=== PATIENT | female | born 1970 | race Caucasian/White ===

== ENCOUNTER → 2016-11-04 | Outpatient (CLI) | payer OTHER ==
[~2016-11-04] MED LIST: ACET-1256 PO; ALBUAER INH; AMB10 PO; AMOX875T PO; AZEL0.15 NAE; CALC1TAB9 PO; FEXO1TAB58 PO; FLUO20CA35 PO; FLUO40CA8 PO; FRS/40 PO; GABA1CAP5 PO; IBUP-103 PO; LEVO75TA5 PO; LIDO5DIS10 TOP; MTR600X PO; NF656 TOP; OMEP40CA PO; OMEP40CA41 PO; OXYC1TAB3 PO; PEDICHW50 PO; POTA1TAB PO; WARF-237 PO; WARF5TAB90 PO; ZNTT/150 PO; ZOLP5TAB6 PO
--- NOTE | 2016-11-04 16:45 | DIAGNOSTIC IMAGING REPORT ---
ULTRASOUND LEFT LOWER EXTREMITY VENOUS CLINICAL HISTORY: Left leg pain and swelling. COMPARISON STUDY: No priors. TECHNIQUE: Real-time, grayscale, and color Doppler sonography of the deep veins of the left lower extremity was performed from the inguinal crease to the calf. Compression and augmentation were utilized. FINDINGS: There is nearly occlusive deep venous thrombosis identified in the left popliteal vein. The common femoral and superficial femoral veins are patent and normally compressible. The greater saphenous vein and the profunda femoris vein at the junction with the common femoral vein are clear. The visualized calf veins are patent. Occlusive superficial venous thrombus is identified in the left chapa at the indicated site of pain. IMPRESSION: 1. There is nearly occlusive deep venous thrombosis identified within the left popliteal vein. 2. There is occlusive superficial venous thrombus identified in the left chapa at the site of pain. Electronically signed by: David Birmingham M.D. 11/04/2016 4:44 PM Dictated Date/Time: 11/04/2016 4:42 PM
== END | disposition home or self-care (01) ==
LOC: C.ULTR 15:51
PROVIDERS: ATTEND Internal Medicine
DX: I82.432 Acute embolism and thrombosis of left popliteal vein (principal); I82.812 Embolism and thrombosis of superficial veins of left lower extremity

== ENCOUNTER 2017-02-27 06:39 | Emergency (ER) | payer OTHER ==
[~2017-02-27] VITALS: Ht 167.6 cm; Wt 156.8 kg
[~2017-02-27 06:39] MED LIST changes: -AMOX875T PO; -IBUP-103 PO; -NF656 TOP; -OMEP40CA41 PO; -ZOLP5TAB6 PO
[2017-02-27 06:43] VITALS: TEMP 36.6; Ht 167.6 cm; Wt 156.8 kg
[2017-02-27] MEDS ORDERED: NF656 TOP (07:15)
[2017-02-27] MEDS ORDERED: ZOLP5TAB6 PO (07:15)
[2017-02-27] MEDS ORDERED: ALBUAER INH (07:15)
[2017-02-27] MEDS ORDERED: IBUP-103 PO (07:15)
[2017-02-27] MEDS ORDERED: OMEP40CA41 PO (07:15)
[2017-02-27] MEDS ORDERED: AMPICILLIN/SULBACTAM SOD INJ 3,000 MG in SODIUM CHLORIDE 0.9% 100ML 100 ML IV ONE (07:30)
--- NOTE | 2017-02-27 07:32 | EMERGENCY ROOM VISIT NOTE ---
History First contact with patient: 06:57 Chief Complaint: BITE Stated Complaint: DOG BITE History of Present Illness The patient is a 47 year old female who presents to the Emergency Room with complaints of right hand pain and swelling. 2 days ago she was breaking up a fight between her dog and another dog and was bitten on the right hand. She states that the dog's are up-to-date on their immunizations. She states she has been cleaning the wound and dressing with Neosporin. Pain and swelling has become more significant today with difficulty moving her fourth and fifth fingers due to pain. She is right-hand dominant. Tetanus is up-to-date. She is on warfarin therapy for history of blood clots, denies any abnormal bleeding or bruising. She denies any fevers, chills, wrist or elbow pain, feeling ill, nausea/vomiting. She does note that she recently completed a course of amoxicillin for sinus infection. Review of Systems GENERAL: Denies fevers, chills, malaise, fatigue, unintentional weight changes. HEENT: Denies dizziness, visual problems, hearing loss, tinnitus. Denies difficulty swallowing or oral lesions. PULMONARY: Denies cough, shortness of breath, sputum production or hemoptysis. CARDIOVASCULAR: Denies chest pain, palpitations, dyspnea on exertion, orthopnea or peripheral edema. GASTROINTESTINAL: Denies diarrhea, constipation, nausea, vomiting, or abdominal pain. GENITOURINARY: Denies dysuria, frequency, urgency or nocturia. NEUROLOGIC: Denies history of epilepsy, CVA, TIA or chronic headaches. MUSCULOSKELETAL: Denies history of joint tenderness/swelling. Is right hand pain, swelling, erythema. SKIN: Denies rashes or lesions. PSYCHIATRIC: Denies history of depression or mental illness. ENDOCRINE: Denies history of diabetes, thyroid disorders, abnormal hair growth or sexual dysfunction. Past Medical/Surgical History Medical Problems: (1) gastric sleeve Surgical Problems: (1) History of carpal tunnel surgery Family History Cancer Diabetes mellitus FH: heart disease FHx: gallbladder disease Hypertension Kidney disease Kidney stones Social History Smoking Status: Former Smoker Alcohol Use: none Housing Status: lives with significant other Occupation Status: unemployed Current/Historical Medications Scheduled Acetaminophen (Tylenol), 1 TAB PO prn Amoxicillin & Pot Clavulanate (Augmentin 875-125 mg), 1 TAB PO BID Calcium Citrate-Vitamin D (Citracal + D3 Maximum), 5 TABS PO QDL Fluoxetine (Prozac), 40 MG PO QAM Fluoxetine (Prozac), 20 MG PO QAM Gabapentin (Neurontin), 400 MG PO BID Levothyroxine Sodium (Levothyroxine Sodium), 1 TAB PO QAM Omeprazole (Prilosec), 40 MG PO QAM Pediatric Multiple Vitamin W/ (Flintstones Chewable), 1 TAB PO BID Potassium Gluconate (Potassium Gluconate), 595 MG PO HS Ranitidine (Zantac), 150 MG PO QAM Warfarin Sod (Coumadin), 1 TAB PO 5XWK Warfarin Sodium (Coumadin), 1 TAB PO 2XWK Scheduled PRN Albuterol Sulfate (Proventil Hfa), 2 PUFFS INH Q4H PRN for Shortness of Breath Azelastine Hcl (Astepro), 2 SPRY HILLARY DAILY PRN for prn Fexofenadine-Pseudoephedrine (Ayde-D 24 Hour Allergy), 1 TAB PO DAILY PRN for prn Furosemide (Lasix), 40 MG PO DAILY PRN for swelling Ibuprofen Tab (Advil), 600 MG PO Q4H PRN for Pain Lidocaine (Lidoderm Patch 5%), 1 PATCH TOP DAILY PRN for Pain Oxycodone Ir (Roxicodone Ir), 1-2 TAB PO Q4H PRN for Severe Pain Zolpidem Tartrate (Zolpidem Tartrate), 5 MG PO HS PRN for Sleep Allergies Coded Allergies: NO KNOWN DRUG ALLERGIES (Verified Allergy, Mild, ., 02/27/17) Adhesives (Verified Allergy, Unknown, skin tearing, 02/27/17) Latex1 -Allergic Contact Dermititis (Verified Allergy, Unknown, SKIN IRRITATION, 02/27/17) Uncoded Allergies: NYLON STITCHES (Allergy, Unknown, erythema/pus , 01/02/16) Physical Exam Vital Signs Date Time Temp Pulse Resp B/P Pulse Ox O2 Delivery O2 Flow Rate FiO2 02/27/17 09:55 131/85 02/27/17 09:09 50 22 96 02/27/17 09:01 133/71 02/27/17 08:39 53 20 97 02/27/17 08:32 111/63 02/27/17 08:25 49 02/27/17 06:43 36.6 63 16 127/74 97 Room Air Physical Exam CONSTITUTIONAL: No acute distress. Well appearing and well nourished. Alert and oriented X 4 with normal affect. HEENT: Normocephalic, atraumatic. Pupils equal, round and reactive to light, EOMI. TMs normal. Pharynx normal. NECK: Supple, full active range of motion without discomfort. RESPIRATORY: Clear to auscultation bilaterally with no wheezing, crackles, rhonchi or stridor. Equal expansion bilaterally. CARDIOVASCULAR: Regular rate and rhythm with no murmurs, rubs or gallops. Normal peripheral perfusion. No edema. GASTROINTESTINAL: Soft, nontender, nondistended. Bowel sounds present in all quadrants. MUSCULOSKELETAL: There is break in the skin over the palmar aspect of the right hand, just below the 5th MCP joint, with surrounding swelling, erythema, ttp. No drainage noted from the wound. Increased pain with passive ROM of the 4th and 5th finger. TTP of the 4th and 5th MCP joints. Full range of motion of all other joints without discomfort. INTEGUMENTARY: No rash or other significant dermatologic conditions noted. NEUROLOGIC: Cranial nerves II-XII grossly intact. No focal neurologic deficits noted. Medical Decision & Procedures ER Provider Diagnostic Interpretation: RIGHT HAND 3 VIEWS CLINICAL HISTORY: Dog bite injury. Cellulitis. FINDINGS: 3 views of the right hand are obtained. No prior studies are available for comparison at the time of dictation. The skeletal structures are well mineralized. No fracture is seen. The joint spaces of the hand are well-maintained. There is negative ulnar variance. Diffuse soft tissue edema is identified, greatest dorsally. No subcutaneous gas is seen. No radiodense foreign body is identified. IMPRESSION: Soft tissue edema with no acute bony abnormality seen in the right hand. Laboratory Results 02/27/17 07:35 Red Blood Count 4.94, Mean Corpuscular Volume 91.3, Mean Corpuscular Hemoglobin 30.0, Mean Corpuscular Hemoglobin Concent 32.8, Mean Platelet Volume 9.3, Neutrophils (%) (Auto) 62.3, Lymphocytes (%) (Auto) 24.1, Monocytes (%) (Auto) 11.9, Eosinophils (%) (Auto) 1.3, Basophils (%) (Auto) 0.1, Neutrophils # (Auto ) 4.82, Lymphocytes # (Auto) 1.86, Monocytes # (Auto) 0.92, Eosinophils # (Auto ) 0.10, Basophils # (Auto) 0.01 02/27/17 07:35 Test 02/27/17 07:35 02/27/17 08:30 White Blood Count 7.73 K/uL (4.8-10.8) Red Blood Count 4.94 M/uL (4.2-5.4) Hemoglobin 14.8 g/dL (12.0-16.0) Hematocrit 45.1 % (37-47) Mean Corpuscular Volume 91.3 fL (80-100) Mean Corpuscular Hemoglobin 30.0 pg (25-34) Mean Corpuscular Hemoglobin Concent 32.8 g/dl (32-36) Platelet Count 270 K/uL (130-400) Mean Platelet Volume 9.3 fL (7.4-10.4) Neutrophils (%) (Auto) 62.3 % Lymphocytes (%) (Auto) 24.1 % Monocytes (%) (Auto) 11.9 % Eosinophils (%) (Auto) 1.3 % Basophils (%) (Auto) 0.1 % Neutrophils # (Auto) 4.82 K/uL (1.4-6.5) Lymphocytes # (Auto) 1.86 K/uL (1.2-3.4) Monocytes # (Auto) 0.92 K/uL (0.11-0.59) Eosinophils # (Auto) 0.10 K/uL (0-0.5) Basophils # (Auto) 0.01 K/uL (0-0.2) RDW Standard Deviation 56.3 fL (36.4-46.3) RDW Coefficient of Variation 16.7 % (11.5-14.5) Immature Granulocyte % (Auto) 0.3 % Immature Granulocyte # (Auto) 0.02 K/uL (0.00-0.02) Anion Gap 5.0 mmol/L (3-11) Est Creatinine Clear Calc Drug Dose 133.6 ml/min Estimated GFR () 101.9 Estimated GFR (Non- 87.9 BUN/Creatinine Ratio 11.8 (10-20) Calcium Level 8.3 mg/dl (8.5-10.1) Prothrombin Time 36.4 SECONDS (9.0-12.0) Prothromb Time International Ratio 3.2 (0.9-1.1) Medications Administered Medications (Trade) Dose Ordered Sig/Chica Route Start Time Stop Time Status Last Admin Dose Admin Ampicillin Sodium/ Sulbactam Sodium/ Sodium Chloride (Unasyn Inj/Nss 100ml) 108 ml @ 200 mls/hr ONE ONCE IV 02/27/17 07:30 02/27/17 08:02 DC 02/27/17 07:47 200 MLS/HR Medical Decision CC: Patient presenting with complaint of right hand pain and swelling Interpretation of Labs: No leukocytosis, no anemia, no significant electrolyte abnormalities, normal renal function. Mildly supratherapeutic INR. Differential Diagnosis: Includes, but not limited to cellulitis, abscess, foreign body, tenosynovitis, fracture. Summary: Patient was evaluated at bedside, history of physical exam performed. Patient is alert and in no acute distress. On exam there is evidence of developing cellulitis of the right hand. No streaking or purulent drainage noted. Orders were placed at bedside for basic labs, IV antibiotics, x-ray of the hand to evaluate and treat for cellulitis. Patient discussed with Dr. Leslie, who agrees with my assessment and plan. Labs reviewed, mildly elevated INR and otherwise unremarkable. X-ray reviewed, findings consistent with cellulitis, no foreign body or underlying bony abnormality. Cellulitic area outlined with skin marker. Patient appears to be improving after IV antibiotics. Vital signs remained stable. Patient reassessed multiple times throughout ED stay, patient remained stable and without complaint. Patient was updated on plan for discharge and continued management of her cellulitis. She was instructed on close follow-up and return precautions, she verbalized understanding. Impression Primary Impression: Dog bite Additional Impression: Cellulitis of right hand Departure Information Dispostion Home / Self-Care Condition GOOD Prescriptions Amoxicillin & Pot Clavulanate (Augmentin 875-125 mg) 1 Tab Tab 1 TAB PO BID for 10 Days, #20 TAB Prov: Debbie Eng CRNP 02/27/17 Referrals Krzysztof Pickering MD (PCP) Patient Instructions ED Bite Dog, ED Infec Skin Cellulitis, My [facility] Additional Instructions Take the Augmentin as prescribed for the full 10 days. Do not skip any doses. You may take extra strength Tylenol 1-2 tablets every 6-8 hours as needed for pain. Do not take more than 6 tablets in 24 hours. Apply warm compresses to the area to help with pain and swelling. Keep the hand elevated as much as possible to also help with swelling. Your INR (Coumadin level) was slightly elevated today. Do not take her dose of Coumadin tonight. You may resume taking her Coumadin as normal tomorrow. You should have your INR rechecked in 3-4 days. Please return to the ER to have your hand rechecked in 2 days. Please return sooner for any signs of worsening infection, including increased pain, swelling , spreading redness, streaking up the arm, pus drainage, fevers/chills/feeling ill, persistent vomiting and unable to take your medications, or any other concerns. Problem Qualifiers Primary Impression: Dog bite Encounter type: initial encounter Qualified Codes: W54.0XXA - Bitten by dog , initial encounter
[2017-02-27 07:52] LABS: BASO % 0.1 %; BASO ABS # 0.01 K/uL (0-0.2); COMPLETE YES; EOS % 1.3 %; HEMATOCRIT 45.1 % (37-47); IG% 0.3 %; LYMPH % 24.1 %; LYMPH ABS # 1.86 K/uL (1.2-3.4); MEAN CELL VOLUME 91.3 fL (80-100); MEAN CORPUSCULAR HGB CONC 32.8 g/dl (32-36); MEAN PLATELET VOLUME 9.3 fL (7.4-10.4); MONO % 11.9 %; NEUT % 62.3 %; PLATELET COUNT 270 K/uL (130-400); RED BLOOD COUNT 4.94 M/uL (4.2-5.4); WHITE BLOOD COUNT 7.73 K/uL (4.8-10.8)
[2017-02-27 08:21] LABS: BUN/CREATININE RATIO 11.8 (10-20); CREATININE 0.79 mg/dl (0.60-1.20); POTASSIUM 4.1 mmol/L (3.5-5.1)
--- NOTE | 2017-02-27 08:27 | DIAGNOSTIC IMAGING REPORT ---
RIGHT HAND 3 VIEWS CLINICAL HISTORY: Dog bite injury. Cellulitis. FINDINGS: 3 views of the right hand are obtained. No prior studies are available for comparison at the time of dictation. The skeletal structures are well mineralized. No fracture is seen. The joint spaces of the hand are well-maintained. There is negative ulnar variance. Diffuse soft tissue edema is identified, greatest dorsally. No subcutaneous gas is seen. No radiodense foreign body is identified. IMPRESSION: Soft tissue edema with no acute bony abnormality seen in the right hand. Electronically signed by: David Birmingham M.D. 02/27/2017 8:25 AM Dictated Date/Time: 02/27/2017 8:24 AM
[2017-02-27 08:45] LABS: CALCIUM 8.3 mg/dl (8.5-10.1)
[2017-02-27 08:50] LABS: INR 3.2 (0.9-1.1); PROTHROMBIN TIME (PATIENT) 36.4 SECONDS (9.0-12.0)
[2017-02-27 09:09] VITALS: PULSE 50; O2SAT 96
[2017-02-27] MEDS ORDERED: AMOX875T PO (09:44)
[2017-02-27 09:55] VITALS: BP 131/85
== END 2017-02-27 09:59 | disposition home or self-care (01) ==
LOC: C.EDB 06:40
DX: S61.451A Open bite of right hand, initial encounter (principal); L03.113 Cellulitis of right upper limb; Z79.01 Long term (current) use of anticoagulants; Z79.899 Other long term (current) drug therapy; Z86.718 Personal history of other venous thrombosis and embolism; Z87.891 Personal history of nicotine dependence; Z82.49 Family history of ischemic heart disease and other diseases of the circulatory system; Z83.3 Family history of diabetes mellitus; Z83.79 Family history of other diseases of the digestive system; Z84.1 Family history of disorders of kidney and ureter; W54.0XXA Bitten by dog, initial encounter

== ENCOUNTER → 2018-02-17 | Day surgery (SDC) | payer OTHER ==
[2018-02-10 13:26] VITALS: BMI 61.0
[~2018-02-17] VITALS: Ht 167.6 cm; Wt 170.9 kg
[~2018-02-17] MED LIST changes: -AMB10 PO; -AZEL0.15 NAE; +CYCL5TAB PO; +FERRTAB18 PO; +FLUT0.15 NAE; +FOLI5CAP PO; +GABA-1220 PO; -GABA1CAP5 PO; -LIDO5DIS10 TOP; +LIDOCAINE HCL 2% 2 ML VIAL (20MG/ML) ONE; -MTR600X PO; -OMEP40CA PO; +OMEP40CA41 PO; +PROPOFOL IV EMULSION 10 MG/ML 20 ML VIAL ONE; +RANI150T85 PO; +SODIUM CHLORIDE 0.9% 500ML 500 ML IV ONE; +TOPI25TA99 PO; -ZNTT/150 PO; +ZOLP5TAB6 PO
[2018-02-17 08:22] VITALS: Ht 167.6 cm; Wt 170.9 kg
--- NOTE | 2018-02-17 08:32 | Endo History and Physical ---
History & Physical Date of Service: February 17, 2018. Chief Complaint: SCREENING Referring Physician: DR. GAGE History of Present Illness Screening colonoscopy Past Medical History Arthritis, Reflux, Sleep Apnea, Thyroid Disease, Depression Past Surgical History Hx Cardiac Surgery: No Hx Internal Defibrillator: No Hx Pacemaker: No Hx Abdominal Surgery: Yes (GASTRIC SLEEVE PROCEDURE 03/12/15, D&C) Hx of Implantable Prosthesis: No Hx Post-Op Nausea and Vomiting: No Hx Cancer Surgery: No Hx Thoracic Surgery: No Hx Orthopedic: Yes (B/L CTR) Hx Urinary Tract Surgery: No Social History Smoking Status: Former Smoker Hx Substance Use: Yes (OXYCODONE DAILY) Hx Alcohol Use: No Allergies Coded Allergies: Adhesives (Verified Allergy, Unknown, skin tearing, 02/17/18) Latex1 -Allergic Contact Dermititis (Verified Allergy, Unknown, SKIN IRRITATION, 02/17/18) Uncoded Allergies: NYLON STITCHES (Allergy, Mild, erythema/pus , 02/10/18) Current Medications Reported Home Medications Medications Dose Route/Sig Max Daily Dose Days Date Category Dose Instructions Topamax (Topiramate) 25 Mg Tab 25 Mg PO HS 02/10/18 Reported Vitron-C (Iron-Vitamin C) 1 Tab Tab 1 Tab PO BID 02/10/18 Reported Flonase Allergy Relief (Fluticasone Propionate (Nasal)) 50 Mcg/Act Spr 2 Sprays HILLARY DAILY 02/10/18 Reported Folic Acid 5 Mg Cap 1 Cap PO DAILY 02/10/18 Reported Flexeril (Cyclobenzaprine Hcl) 5 Mg Tab 1 Tab PO HS PRN 30 02/10/18 Reported Proventil Hfa (Albuterol Sulfate) 108 Mcg/Act Aer 2 Puffs INH Q4H PRN 02/27/17 Reported Prilosec (Omeprazole) 40 Mg Cap 40 Mg PO QAM 02/27/17 Reported Zolpidem Tartrate 5 Mg Tab 5 Mg PO HS PRN 30 02/27/17 Reported Tylenol (Acetaminophen) 500 Mg Tab 1 Tab PO PRN 3 05/30/16 Reported Coumadin (Warfarin Sod) 10 Mg Tab 1 Tab PO 5XWK 30 05/30/16 Reported TAKES EVERY DAY EXCEPT MON & FRI. Coumadin (Warfarin Sodium) 5 Mg Tab 1 Tab PO 2XWK 90 05/30/16 Reported TAKES ON MON AND FRIDAYS. Zantac (Ranitidine HCl) 150 Mg Tab 150 Mg PO QAM 05/16/16 Reported Ayde-D 24 Hour Allergy (Fexofenadine-Pseudoephedrine) 1 Tab Tab 1 Tab PO DAILY PRN 30 05/16/16 Reported Flintstones Chewable (Pediatric Multiple Vitamin W/) 1 Chw Chw 1 Tab PO BID 01/02/16 Reported Citracal + D3 Maximum (Calcium Citrate-Vitamin D) 1 Tab Tab 5 Tabs PO QDL 01/02/16 Reported Potassium Gluconate 595 Mg Tab 595 Mg PO HS 01/02/16 Reported Prozac (Fluoxetine HCl) 20 Mg Cap 20 Mg PO QAM 01/02/16 Reported TAKES WITH A 40 FOR A TOTAL OF 60 Levothyroxine Sodium 75 Mcg Tab 1 Tab PO QAM 01/02/16 Reported Roxicodone Ir (Oxycodone HCl) 5 Mg Tab 1-2 Tab PO Q4H PRN 01/02/16 Reported Neurontin (Gabapentin) 400 Mg Cap 400 Mg PO BID 01/02/16 Reported Lasix (Furosemide) 40 Mg Tab 40 Mg PO 3XWK PRN 02/27/11 Reported Prozac (Fluoxetine HCl) 40 Mg Cap 40 Mg PO QAM 02/27/11 Reported Vital Signs Weight (Kilograms): 170.91 Height (Feet): 5 Height (Inches): 6 Physical Exam General Appearance: no apparent distress Respiratory/Chest: Auscultation: breath sounds normal Cardiovascular: Heart Auscultation: RRR Abdomen: Inspection & Palpation: soft, non-distended Assessment and Plan Stable for screening colonoscopy
--- NOTE | 2018-02-17 09:30 | Discharge Instructions ---
Endoscopy Patient Instructions Date / Procedure(s) Performed February 17, 2018. Colonoscopy Allergy Information Coded Allergies: Adhesives (Verified Allergy, Unknown, skin tearing, 02/17/18) Latex1 -Allergic Contact Dermititis (Verified Allergy, Unknown, SKIN IRRITATION, 02/17/18) Uncoded Allergies: NYLON STITCHES (Allergy, Mild, erythema/pus , 02/10/18) Discharge Date / Findings February 17, 2018. Two 3mm polyps removed, Diverticulosis and Hemorrhoids Medication Instructions Stopped Medication(s): COUMADIN ON THURSDAY Provider Instructions Activity Restrictions - No exercising or heavy lifting for 24 hours. - Do not drink alcohol the day of the procedure. - Do not drive a car or operate machinery until the day after the procedure. - Do not make any important decisions or sign important papers in 24 hours after the procedure. Following Day: - Return to full activity which may include returning to work/school. Diet Start your diet with liquids and light foods (jello, soup, juice, toast). Then eat your usual diet if not nauseated. Treatment For Common After Affects For mild abdominal pain, bloating, or excessive gas: - Rest - Eat lightly - Lie on right side Follow-Up Information Follow-up with DR. GAGE as scheduled Anesthesia Information What You Should Know You have had a procedure that required some medicine to reduce anxiety and discomfort. This treatment is called moderate sedation. After receiving the treatment, you may be sleepy, but you will be able to breathe on your own. The effects of the treatment may last for several hours. Follow these instructions along with Activity/Diet recommendations noted above: * Do NOT do anything where dizziness or clumsiness would be dangerous. * Rest quietly at home today, then you can be up and about tomorrow. * Have a responsible person stay with you the rest of today. * You may have had an I.V. today. If so, you may take the dressing off later today. Recommendations Call your doctor if: * Trouble breathing * Continuous vomiting for more than 24 hours * Temperature above 101 degrees * Severe abdominal pain or bloating * Pain not relieved by pain medicine ordered * There is increased drainage or redness from any incision * A large amount of rectal bleeding greater than 2-3 tablespoons. (If you had a polyp/s removed or have hemorrhoids, a small amount of blood - from the rectum is to be expected.) * You have any unanswered questions or concerns. IN THE EVENT OF A SERIOUS EMERGENCY, GO TO THE NEAREST EMERGENCY ROOM Your discharge instructions were prepared by provider Damián Martinez. Patient Instructions Signature Page Amaya Monteiro Patient (or Guardian) Signature/Date: I have read and understand the instructions given to me by my caregivers. Caregiver/RN/Doctor Signature/Date: The above-named patient and/or guardian has received patient instructions on this date. + Original Patient Signature Page (only) stays with chart. Please make copy for patient.
--- NOTE | 2018-02-17 09:33 | GI REPORT ---
Patient Name: Amaya Monteiro Procedure Date: 02/17/2018 8:34 AM Date of : 1970 Admit Type: Outpatient Age: 48 Gender: Female Attending MD: Damián Martinez MD Procedure: Colonoscopy Providers: Damián Martinez MD Referring MD: Krzysztof Pickering Indications: Screening for colorectal malignant neoplasm Medicines: Monitored Anesthesia Care Complications: No immediate complications. Estimated Blood Loss: Estimated blood loss: none. Procedure: Pre-Anesthesia Assessment: - Prior to the procedure, a History and Physical was performed, and patient medications and allergies were reviewed. The patient is competent. The risks and benefits of the procedure and the sedation options and risks were discussed with the patient. All questions were answered and informed consent was obtained. Patient identification and proposed procedure were verified by the physician and the nurse in the procedure room. Mental Status Examination: alert and oriented. Airway Examination: normal oropharyngeal airway and neck mobility. Respiratory Examination: clear to auscultation. CV Examination: normal. ASA Grade Assessment: III - A patient with severe systemic disease. After reviewing the risks and benefits, the patient was deemed in satisfactory condition to undergo the procedure. The anesthesia plan was to use monitored anesthesia care (MAC). Immediately prior to administration of medications, the patient was re-assessed for adequacy to receive sedatives. The heart rate, respiratory rate, oxygen saturations, blood pressure, adequacy of pulmonary ventilation, and response to care were monitored throughout the procedure. The physical status of the patient was re-assessed after the procedure. After I obtained informed consent, the scope was passed under direct vision. Throughout the procedure, the patient's blood pressure, pulse, and oxygen saturations were monitored continuously. The scope was introduced through the anus and advanced to the terminal ileum. The colonoscopy was performed without difficulty. The patient tolerated the procedure well. The quality of the bowel preparation was fair. The terminal ileum, ileocecal valve, appendiceal orifice, and rectum were photographed. Findings: The perianal and digital rectal examinations were normal. The terminal ileum appeared normal. Two sessile polyps were found in the rectum and ascending colon. The polyps were 3 mm in size. These polyps were removed with a cold biopsy forceps. Resection and retrieval were complete. Verification of patient identification for the specimen was done by the physician and nurse using the patient's name and date. A few small-mouthed diverticula were found in the sigmoid colon. Non-bleeding internal hemorrhoids were found during retroflexion. The hemorrhoids were large. Anal papilla(e) were hypertrophied. Impression: - Preparation of the colon was fair. - The examined portion of the ileum was normal. - Two 3 mm polyps in the rectum and in the ascending colon, removed with a cold biopsy forceps. Resected and retrieved. - Diverticulosis in the sigmoid colon. - Non-bleeding internal hemorrhoids. - Anal papilla(e) were hypertrophied. Recommendation: - Discharge patient to home. - Await pathology results. - Repeat colonoscopy in 5 years for surveillance. - Return to referring physician. Damián Martinez MD 02/17/2018 9:33:34 AM This report has been signed electronically. Note Initiated On: 02/17/2018 8:34 AM Number of Addenda: 0 I attest to the content of the Intraoperative Record and orders documented therein, exceptions below {[id number]}
[2018-02-17 10:04] VITALS: BP 121/71; PULSE 56; O2SAT 100
--- NOTE | 2018-02-17 10:05 | Anesthesiology Progress Note ---
Anesthesia Post Op Note Date & Time February 17, 2018 at 10:05 Vital Signs Pain Intensity: 0 Vital Signs Past 12 Hours Date Time Temp Pulse Resp B/P (MAP) Pulse Ox O2 Delivery O2 Flow Rate FiO2 02/17/18 09:48 57 20 113/46 (68) 99 Room Air 02/17/18 09:33 36.0 62 16 110/54 (72) 95 Room Air 02/17/18 08:31 37.0 58 24 126/63 (84) 97 Room Air Notes Mental Status: alert / awake / arousable, participated in evaluation Pt Amnestic to Procedure: Yes Nausea / Vomiting: adequately controlled Pain: adequately controlled Airway Patency, RR, SpO2: stable & adequate BP & HR: stable & adequate Hydration State: stable & adequate Anesthetic Complications: no major complications apparent
== END | disposition home or self-care (01) ==
LOC: C.GI 07:52
PROVIDERS: ATTEND Student in an Organized Health Care Education/Training Program
DX: Z12.11 Encounter for screening for malignant neoplasm of colon (principal); D12.2 Benign neoplasm of ascending colon; K62.1 Rectal polyp; K57.30 Diverticulosis of large intestine without perforation or abscess without bleeding; K64.8 Other hemorrhoids; K62.89 Other specified diseases of anus and rectum; M19.90 Unspecified osteoarthritis, unspecified site; K21.9 Gastro-esophageal reflux disease without esophagitis; F32.9 Major depressive disorder, single episode, unspecified; Z98.84 Bariatric surgery status; Z91.040 Latex allergy status; Z91.048 Other nonmedicinal substance allergy status; G47.33 Obstructive sleep apnea (adult) (pediatric); Z99.89 Dependence on other enabling machines and devices; Z86.718 Personal history of other venous thrombosis and embolism; E66.01 Morbid (severe) obesity due to excess calories; D68.51 Activated protein C resistance

== ENCOUNTER 2020-06-23 17:29 | Inpatient (IN) ==
[2020-06-23] MEDS ORDERED: ONDANSETRON INJ 2 MG/ML 2 ML VIAL IV STA (17:50)
[2020-06-23] MEDS ORDERED: HYDROmorphone INJ 1 MG/ML SYRINGE IV STA (17:50)
--- NOTE | 2020-06-23 17:56 | Emergency Department Note ---
History of Present Illness General Chief complaint: Leg Injury/Pain Stated complaint: RIGHT LEG PAIN Time Seen by Provider: 06/23/20 17:40 Source: patient History of Present Illness Provider complaint: Right leg pain Onset (ago): week(s) Location: lower extremity and right Radiation: non-radiation Severity: severe Pain Consistency: + constant Maximum Pain Intensity: 10 Quality: + other (Like someone ripping it apart from the inside) Relieved By: + none Exacerbated By: + other (Touching it) Associated symptoms: no chest pain, no cough, no fever/chills, no headaches, no malaise, no nausea/vomiting, no shortness of breath and no weakness This is a 50-year-old female who presents with right leg pain for approximately 11 days after falling onto it. She did have a work-up here as well as at her doctor's office as noted below. She has a hematoma and is on Coumadin for prior history of DVT. She is here today because her pain is worse and she cannot sleep at night. She is able to walk on it but it does cause her significant pa in. She has not noticed any coldness to the foot or loss of sensation or function of the foot or leg. She does state that the area seems to be getting redder and hotter. She is currently on antibiotics as prescribed by her doctor. She has had no fevers, chills, cough, shortness of breath, chest pain, abdominal pain, vomiting or urinary symptoms. She denies any known exposure to COVID-19. She rates her pain a 10 out of 10 in severity. It is worse when she touches it. Home Medications Home Medications Medication Instructions Recorded Confirmed Type calcium carbonate 600 mg calcium 600 mg PO QAM tab 06/29/19 06/23/20 History (1,500 mg) tablet cyclobenzaprine 5 mg tablet 5 mg PO HS PRN tab 06/29/19 06/23/20 History fluticasone propionate 50 2 sprays INTRANASAL DAILY gm 06/29/19 06/23/20 History mcg/actuation nasal spray,suspension furosemide 20 mg tablet 20 mg PO QAM tab 06/29/19 06/23/20 History iron,carbonyl 65 mg-vitamin C 125 1 tab PO TID tab 06/29/19 06/23/20 History mg tablet,delayed release levothyroxine 88 mcg tablet 88 mcg PO DAILYBB tab 06/29/19 06/23/20 History omeprazole 20 mg tablet,delayed 40 mg PO QAM tab 06/29/19 06/23/20 History release oxycodone-acetaminophen 10 mg-325 1 tab PO TID PRN tab 06/29/19 06/23/20 History mg tablet potassium gluconate 595 mg (99 mg) 595 mg PO HS tab 06/29/19 06/23/20 History tablet warfarin 10 mg tablet See Rx Instructions .ROUTE 06/29/19 06/23/20 History .COMPLEX tab zolpidem 5 mg tablet 5 mg PO HS PRN tab 06/29/19 06/23/20 History bupropion HCl See Rx Instructions .ROUTE .COMPLEX 06/14/20 06/23/20 History duloxetine 60 mg PO QAM 06/14/20 06/23/20 History fexofenadine-pseudoephedrine 1 tab PO Q12H PRN 06/14/20 06/23/20 History [Ayde-D 12 Hour] folic acid 5 mg PO HS 06/14/20 06/23/20 History Allergies Allergy/AdvReac Type Severity Reaction Status Date / Time latex Allergy Intermediate SKIN Verified 06/23/20 19:48 IRRITATION adhesive AdvReac Intermediate skin Verified 06/23/20 19:48 tearing NYLON STITCHES Allergy Mild erythema/pu Uncoded 06/23/20 19:48 s Past Med/Surg History Medical History Chronic back pain DVT (deep venous thrombosis) Factor V deficiency GERD (gastroesophageal reflux disease) Kidney stone on left side Morbid obesity Narcotic dependence Thrombophlebitis of right saphenous vein Surgical History History of gastric bypass Social History Smoking Status: Never smoker Preferred Language: Mohawk Feels Safe at Home: Yes Review of Systems See HPI for pertinent positives & negatives. and A total of 10 systems reviewed and were otherwise negative Physical Exam Vital Signs Vital Signs - 24 hr 06/23/20 17:33 06/23/20 19:29 06/23/20 21:00 Temperature 37.0 C Temperature Source Oral Pulse Rate 85 Pulse Rate [Finger] 67 70 Pulse Rhythm [Finger] Regular Pulse Strength [Finger] Normal Respiratory Rate 22 24 22 Respiratory Effort / Characteristics Non-Labored Spontaneous Non-Labored Non-Labored Respiratory Depth Normal Normal Normal Respiratory Pattern Regular Regular Blood Pressure 215/94 H Blood Pressure [Right Arm] 149/78 H 156/94 H Blood Pressure Mean 134 Blood Pressure Mean [Right Arm] 101 114 Blood Pressure Position Sitting Blood Pressure Position [Right Arm] Lying Pulse Oximetry 94 97 98 Oxygen Delivery Method Room Air Room Air Room Air Sepsis Recent Fever Within 48 Hours No Sepsis New/Unexplained Change in Mental Status No Sepsis Action Taken by Nursing No Action Required Constitutional: Vital signs reviewed. Eyes: Pupils are equal round reactive to light. Conjunctiva are noninjected. ENT: Pharynx is clear without erythema or exudate. Mucous membranes are moist. Neck supple without meningeal signs. Respiratory: Clear to auscultation bilaterally. Breath sounds are equal bilaterally. Cardiovascular: Regular rate and rhythm. No rubs or gallops. GI: Soft, nondistended and nontender. Bowel sounds are present. Musculoskeletal: Significant swelling and erythema with increased warmth to the right leg below the knee. Full range of motion to the ankle without signs of septic arthritis. Normal distal pulses. Significant tenderness anteriorly. Integumentary: No cyanosis. or jaundice. Neurological: The patient is awake and alert. No focal deficits. Psychiatric: Anxious. Course Administered Medications Discontinued Medications Hydromorphone HCl (Hydromorphone Inj 1 Mg/Ml Syringe) 1 mg IV NOW STA Stop: 06/23/20 17:51 Last Admin: 06/23/20 18:24 Dose: 1 mg Documented by: [id number] Hydromorphone HCl (Hydromorphone Inj 0.5 Mg/0.5 Ml Syr) 0.5 mg IV NOW STA Stop: 06/23/20 21:22 Last Admin: 06/23/20 21:34 Dose: 0.5 mg Documented by: [id number] Hydromorphone HCl (Hydromorphone Inj 0.5 Mg/0.5 Ml Syr) 0.5 mg IV NOW STA Stop: 06/23/20 22:25 Last Admin: 06/23/20 22:41 Dose: 0.5 mg Documented by: [id number] Vancomycin HCl 2,750 mg/ (Sodium Chloride) 555 mls @ 200 mls/hr IV NOW ONE Stop: 06/23/20 22:46 Last Admin: 06/23/20 20:50 Dose: 200 mls/hr Documented by: [id number] Ioversol (Ioversol 100ml) 89 ml IV ONCE ONE Stop: 06/23/20 19:22 Last Admin: 06/23/20 19:22 Dose: 89 ml Documented by: [id number] Ondansetron HCl (Ondansetron Inj 2 Mg/Ml 2 Ml Vial) 4 mg IV NOW STA Stop: 06/23/20 17:51 Last Admin: 06/23/20 18:25 Dose: 4 mg Documented by: [id number] Medical Decision Making Differential Diagnosis Compartment syndrome, abscess, hematoma, cellulitis, supratherapeutic INR Medical Records Attestation: I reviewed the patient's medical records. The patient was seen here on June 14 for right leg pain. She had been seen by her PCP 2 days earlier and had a ultrasound and x-ray of her leg which showed no fracture or DVT. She did have a hematoma on ultrasound. She is on Coumadin. She had a repeat x-ray as well as DVT study in the ED on the which were remarkable for an increase in size of the hematoma by 3 cm. Home Medications Current Medication List: was personally reviewed by me Laboratory Data Attestation: I reviewed the patient's lab results. Result diagrams: 06/23/20 18:20 06/23/20 18:20 Lab Results 06/23/20 06/23/20 06/23/20 Range/Units 18:20 18:20 18:20 WBC 9.36 (4.8-10.8) K/uL RBC 3.76 L (4.2-5.4) M/uL Hgb 12.0 (12.0-16.0) g/dL Hct 37.2 (37-47) % MCV 98.9 (80-100) fL MCH 31.9 (25-34) pg MCHC 32.3 (32-36) g/dL RDW Std Deviation 51.2 H (36.4-46.3) fL RDW Coeff of Deandre 14.3 (11.5-14.5) % Plt Count 403 H (130-400) K/uL MPV 9.0 (7.4-10.4) fL Immature Gran % (Auto) 1.6 % Neut % (Auto) 83.7 % Lymph % (Auto) 9.4 % Rich % (Auto) 4.9 % Eos % (Auto) 0.2 % Baso % (Auto) 0.2 % Neut # (Auto) 7.83 H (1.4-6.5) K/uL Lymph # (Auto) 0.88 L (1.2-3.4) K/uL Rich # (Auto) 0.46 (0.11-0.59) K/uL Eos # (Auto) 0.02 (0-0.5) K/uL Baso # (Auto) 0.02 (0-0.2) K/uL Immature Gran # (Auto) 0.15 H (0.00-0.02) K/uL PT 26.1 H (9.0-12.0) Seconds INR 2.6 H (0.9-1.1) APTT 38.7 H (21.0-31.0) Seconds PTT Ratio 1.4 Sodium 142 (136-145) mmol/L Potassium 4.0 (3.5-5.1) mmol/L Chloride 105 (98-107) mmol/L Carbon Dioxide 30 (21-32) mmol/L Anion Gap 7.0 (3-11) BUN 13 (7-18) mg/dl Creatinine 0.90 (0.6-1.2) mg/dl Est Cr Clr Drug Dosing 121.6 ml/min Est GFR ( Amer) 85.2 Est GFR (Non-Af Amer) 73.5 BUN/Creatinine Ratio 14.8 (10-20) Glucose 127 H (70-99) mg/dl Calcium 9.1 (8.5-10.1) mg/dl Total Bilirubin 0.4 (0.2-1) mg/dl AST 30 (15-37) U/L ALT 36 (12-78) U/L Alkaline Phosphatase 130 H (45-117) U/L Total Protein 7.5 (6.4-8.2) gm/dl Albumin 2.7 L (3.4-5.0) gm/dl Globulin 4.8 H (2.5-4.0) gm/dl Albumin/Globulin Ratio 0.6 L (0.9-2) Imaging Data Radiologist's Impression: CT SCAN OF THE RIGHT TIBIA AND FIBULA WITH IV CONTRAST CLINICAL HISTORY: Right lower extremity swelling and erythema. COMPARISON STUDY: Radiograph centered right tibia and fibula and right lower extremity venous ultrasound dated 06/14/2020. TECHNIQUE: Following the IV administration of 89 cc of Optiray 320, CT scan of the right tibia and fibula is performed from the knee to the ankle. Images are reviewed in the axial, sagittal, and coronal planes. IV contrast was administered without complication. A dose lowering technique was utilized adhering to the principles of ALARA. CT DOSE: 483.46 mGy.cm FINDINGS: The skeletal structures are osteopenic. There is no evidence of tibial or fibular fracture. No bony erosion is identified. Minimal benign appearing periostitis is noted along the distal fibular shaft, likely due to chronic stasis. The knee and ankle joints are grossly maintained. There are large dorsal and plantar calcaneal enthesophytes. Degenerative change is noted in the knee joint with mild lateral subluxation of the patella. There is a small knee joint effusion. There is diffuse superficial and deep soft tissue edema identified throughout the right lower extremity with overlying dermal thickening. There is a hyperdense fluid collection identified in the anterolateral soft tissues of the upper calf best seen on axial image #141. This measures approximately 11 x 9 x 3.5 cm and is typical in appearance for a hematoma. No additional organized fluid collection is identified. There is generalized atrophy of the regional musculature. No soft tissue gas is seen. Numerous calcified phleboliths are observed. IMPRESSION: 1. No acute bony abnormality is identified involving the right tibia or fibula. 2. There is an 11 cm hyperdense fluid collection identified in the anterolateral soft tissues of the upper calf. The appearance is typical for a hematoma. Clinical correlation will be required and clinical follow-up to resolution is recommended. 3. Diffuse superficial and deep soft tissue edema is present throughout the right lower extremity. This could be related to volume status/fluid overload or could be seen with cellulitis. Again, clinical correlation will be required. ACT 112: Negative or not required by law. Electronically signed by: David Birmingham M.D. 06/23/2020 7:38 PM Blood Pressure Blood Pressure Findings: Elevated blood pressure Blood Pressure Disposition: further management by hospitalist BETTY Valencia I did evaluate the patient as noted above. The patient is presenting with worsening pain and redness to her right leg. She was previously diagnosed with a hematoma. IV access was established. I did place an order for continuous cardiac monitoring. The monitor showed normal sinus rhythm at a rate of 70 bpm. I did order blood cultures. She was given IV Dilaudid 1 mg and Zofran 4 mg IV. I did order and review the patient's blood work as noted in the electronic medical record. Her white count is not elevated but she does have a left shift. Electrolytes are unremarkable. She has mild hyperglycemia. INR is th erapeutic. I did order a CT of the right lower leg with IV contrast. I did review the images myself as well as the radiology report as described above. She has a 11 cm hematoma which is smaller in size when compared to the ultrasound. She does have diffuse superficial and deep soft tissue edema which is likely related to cellulitis. I did discuss the test results with the patient. I did recommend hospitalization for IV antibiotics given she has been on doxycycline with no improvement. She is agreeable and requesting more pain medication. She was given Dilaudid 0.5 mg IV. I did treat her with vancomycin IV. I did discuss the case with the hospitalist and disability case manager. Impression & Plan Cellulitis of leg, right, Failure of outpatient treatment, Hematoma of right lower leg, Anticoagulated on warfarin Discharge Plan Visit Data Chief Complaint: Leg Injury/Pain Stated Complaint: RIGHT LEG PAIN ED Provider: Vicente Santana Discharge Problem: Cellulitis of leg, right, Failure of outpatient treatment, Hematoma of right lower leg, Anticoagulated on warfarin Patient Disposition: Being Evaluated by Hospitalist Discharge Instructions Interventions: ED Discharge Assessment Last Done: 06/23/20 23:09
[2020-06-23 18:33] LABS: Basophils # (auto) 0.02 K/uL (0-0.2); Basophils % (auto) 0.2 %; Eosinophils # (auto) 0.02 K/uL (0-0.5); Eosinophils % (auto) 0.2 %; Hematocrit (blood only) 37.2 % (37-47); Immature Granulocytes # (auto) 0.15 K/uL (0.00-0.02); Immature Granulocytes % (auto) 1.6 %; Lymphocytes # (auto) 0.88 K/uL (1.2-3.4); Lymphocytes % (auto) 9.4 %; Mean Corpuscular Hemoglobin 31.9 pg (25-34); Mean Corpuscular Hgb Conc 32.3 g/dL (32-36); Mean Corpuscular Volume 98.9 fL (80-100); Monocytes # (auto) 0.46 K/uL (0.11-0.59); Monocytes % (auto) 4.9 %; Neutrophils # (auto) 7.83 K/uL (1.4-6.5); Neutrophils % (auto) 83.7 %; Platelet Count 403 K/uL (130-400); RDW Coefficient of Variation 14.3 % (11.5-14.5); RDW Standard Deviation 51.2 fL (36.4-46.3); Red Blood Count 3.76 M/uL (4.2-5.4); White Blood Count 9.36 K/uL (4.8-10.8)
[2020-06-23 18:43] LABS: INR 2.6 (0.9-1.1); Partial Thromboplastin Ratio 1.4; Partial Thromboplastin Time 38.7 Seconds (21.0-31.0); Prothrombin Time 26.1 Seconds (9.0-12.0)
[2020-06-23 18:52] LABS: Albumin Level 2.7 gm/dl (3.4-5.0); BUN Creatinine Ratio 14.8 (10-20); Calcium 9.1 mg/dl (8.5-10.1); Creatinine Clr Calc Pharmacy 121.6 ml/min; Est GFR (African American) 85.2; Est GFR (Non-African American) 73.5
[2020-06-23 18:55] LABS: Albumin Globulin Ratio 0.6 (0.9-2); Bilirubin,Total 0.4 mg/dl (0.2-1); Globulin 4.8 gm/dl (2.5-4.0); Total Protein 7.5 gm/dl (6.4-8.2)
[2020-06-23] MEDS ORDERED: IOVERSOL 100ml IV ONE (19:21)
--- NOTE | 2020-06-23 19:39 | CT Scan Report ---
CT SCAN OF THE RIGHT TIBIA AND FIBULA WITH IV CONTRAST CLINICAL HISTORY: Right lower extremity swelling and erythema. COMPARISON STUDY: Radiograph centered right tibia and fibula and right lower extremity venous ultras ound dated 06/14/2020. TECHNIQUE: Following the IV administration of 89 cc of Optiray 320, CT scan of the right tibia and f ibula is performed from the knee to the ankle. Images are reviewed in the axial, sagittal, and mishra l planes. IV contrast was administered without complication. A dose lowering technique was utilized adhering to the principles of ALARA. CT DOSE: 483.46 mGy.cm FINDINGS: The skeletal structures are osteopenic. There is no evidence of tibial or fibular fracture. No bony erosion is identified. Minimal benign appearing periostitis is noted along the distal fibula r shaft, likely due to chronic stasis. The knee and ankle joints are grossly maintained. There are la rge dorsal and plantar calcaneal enthesophytes. Degenerative change is noted in the knee joint with m ild lateral subluxation of the patella. There is a small knee joint effusion. There is diffuse superf icial and deep soft tissue edema identified throughout the right lower extremity with overlying derma l thickening. There is a hyperdense fluid collection identified in the anterolateral soft tissues of the upper calf best seen on axial image #141. This measures approximately 11 x 9 x 3.5 cm and is typi robert in appearance for a hematoma. No additional organized fluid collection is identified. There is ge neralized atrophy of the regional musculature. No soft tissue gas is seen. Numerous calcified phlebol iths are observed. IMPRESSION: 1. No acute bony abnormality is identified involving the right tibia or fibula. 2. There is an 11 cm hyperdense fluid collection identified in the anterolateral soft tissues of the upper calf. The appearance is typical for a hematoma. Clinical correlation will be required and clini robert follow-up to resolution is recommended. 3. Diffuse superficial and deep soft tissue edema is present throughout the right lower extremity. Th is could be related to volume status/fluid overload or could be seen with cellulitis. Again, clinical correlation will be required. ACT 112: Negative or not required by law. Electronically signed by: David Birmingham M.D. 06/23/2020 7:38 PM
[2020-06-23] MEDS ORDERED: VANCOMYCIN HCL 2,750 MG in SODIUM CHLORIDE 0.9% 500 ML IV ONE (20:00)
[2020-06-23] MEDS ORDERED: VANCOMYCIN CONSULT ACTIVE PRN (20:00)
[2020-06-23] MEDS ORDERED: HYDROmorphone INJ 0.5 MG/0.5 ML SYR IV STA ×2 (21:21→22:24)
[2020-06-24] MEDS ORDERED: ZOLPIDEM TARTRATE 5 MG TAB PO PRN (00:01)
[2020-06-24] MEDS ORDERED: ONDANSETRON INJ 2 MG/ML 2 ML VIAL IV PRN (00:01)
[2020-06-24] MEDS ORDERED: HYDROmorphone INJ 0.5 MG/0.5 ML SYR IV PRN (00:01)
[2020-06-24] MEDS ORDERED: POLYETHYLENE (MIRALAX) 17 GM PACK PO PRN (00:01)
[2020-06-24] MEDS: OXYCODONE/ACETAMINOPHEN 10-325 TAB PO PRN ×4 (00:15→23:09)
--- NOTE | 2020-06-24 00:30 | History and Physical Report ---
DATE OF ADMISSION: 06/23/2020 CHIEF COMPLAINT: Right lower extremity pain. HISTORY OF PRESENT ILLNESS: This is a 50-year-old female with past medical history significant for hypothyroidism, heterozygous MTHFR mutation, allergic rhinitis, sleep apnea but not compliant with CPAP, hypertension, obesity, osteoarthritis, chronic pain syndrome, factor V Leiden mutation, history of DVT, history of partial gastrectomy, history of depression, chronic insomnia, nocturnal hypoxemia not using any oxygen at nighttime, presents with severe pain in the right lower extremity. The patient says approximately 11 days ago, she fell and injured right leg.. No loss of consciousness. Did not hit her head. She was able to get up and walk, but she had severe pain. She is on Coumadin for DVT. She was in the ER on 06/14/2020. At that time, on imaging there was no DVT, but showed 12 cm hematoma., no compartment syndrome and was discharged home. Saw PCP on 06/18 and was started on Doxycycline and Prednisone. Again comes to ER today with severe pain in right leg.She is on Coumadin, her INR is therapeutic and CAT scan was done showing 11 cm hypodense fluid collection in the anterolateral soft tissues of her calf. This appearance is typical for hematoma. This seemed to be somewhat lessen in size than in the ultrasound done on 06/14/2020. The patient is afebrile, hemodynamically stable. Complains of severe pain. No leukocytosis. INR is 2.6. Denies any other complaints. Denies any chest pain. No shortness of breath, no cough. No fever, no chills. No headache, no blurred vision, no earache, no runny nose, no sore throat. Appetite is good. No exposure to any COVID patients. No nausea, no abdominal pain. Bowel movements were normal. Micturating fine. ALLERGIES: LATEX, ADHESIVES. PAST MEDICAL HISTORY: As mentioned above. PAST SURGICAL HISTORY: Carpal tunnel surgery bilateral, colonoscopy, dilatation and curettage, EGDs, laparoscopic procedure of the liver, jaw surgery for fitting partial dentures, laparoscopic sleeve gastrectomy. MEDICATIONS: The patient is currently on Tylenol 1000 mg p.o. b.i.d. p.r.n., doxycycline 100 mg p.o. b.i.d., prednisone 20 mg tapering dose, Percocet 10/325 mg 1 tablet every 6 hours p.r.n., Ambien 5 mg p.o. at bedtime p.r.n., Cymbalta 60 mg p.o. daily, Lasix 20 mg p.o. daily, levothyroxine 88 mcg p.o. daily, Flexeril 5 mg p.o. at bedtime p.r.n., Vitron-C 1 tablet t.i.d., Wellbutrin SR 150 mg b.i.d., Prilosec 40 mg p.o. daily, Coumadin 10 mg as directed, Flonase 2 sprays in each nostril daily, calcium carbonate 600 mg p.o. t.i.d., Ayde-D 1 tablet b.i.d. p.r.n., folic acid 5 mg p.o. daily, potassium gluconate 595 mg as needed. FAMILY HISTORY: Significant for maternal aunt has breast cancer. Cousin, maternal side has breast cancer. Mother has diabetes, blocked bowel, hypertension and thyroid disorder. Father had heart disorder. Paternal grandfather has heart disorder. SOCIAL HISTORY: . Former smoker, quit in 2000. Smoked half pack a day for 2 years. No alcohol use, no drug use. REVIEW OF SYMPTOMS: As per HPI. Rest of review of symptoms negative. PHYSICAL EXAMINATION: GENERAL: The patient is morbidly obese, not in acute distress. VITAL SIGNS: Temperature 37, pulse 70, respiratory rate 22, blood pressure 156/94, oxygen 98% on room air. HEENT: Pupils equal, round, and reactive to light. Oral mucosa moist. NECK: No JVD, no neck masses seen. CARDIOVASCULAR SYSTEM: S1, S2 heard. Regular rate and rhythm. No murmur, no gallop. RESPIRATORY SYSTEM: Normal AP diameter. No accessory muscle use. No wheezing, no crackles. ABDOMEN: Soft, bowel sounds present, nontender. No distention. CENTRAL NERVOUS SYSTEM: Cranial nerves II-XII grossly intact, nonfocal. EXTREMITIES: Right lower extremity is erythematous and tender to palpation from the mid calf to above the ankle region. Some bruises seen in the right knee region. LABORATORY DATA: WBC 10.3, hemoglobin 12, hematocrit 37.2, platelets 403 INR 2.6, APTT 38.7. Sodium 142, potassium 4, chloride 105, bicarb 30, BUN 13, creatinine 0.9, serum glucose 127, calcium 9.1. Total bilirubin 0.4, AST 30, ALT 36, alkaline phosphatase 130. Lower extremity CT scan, no bony acute abnormality is identified involving the right tibia or fibula, 11 cm hypodense fluid collection identified in the anterolateral soft tissues of the upper calf. This appearance is typical for hematoma. Clinical correlation will be required and clinical followup to resolution is recommended. Diffuse superficial and deep soft tissue edema is present throughout the right lower extremity. This could be related to volume status, fluid overload or could be significant cellulitis. ASSESSMENT AND PLAN: This is a 50-year-old female presents with fall and right lower extremity hematoma and pain. 1. Right lower extremity cellulitis, severe pain and hematoma from the mechanical fall. It is going for last 10-11 days. Was started on doxycycline by PCP .Er started on vancomycin which we will continue. We will also follow the response. Pain control. Consult Ortho for the hematoma. 2. History of deep venous thrombosis, history of factor V Leiden mutation, heterozygous MTHFR mutation. On Coumadin, INR therapeutic. Continue with Coumadin and follow PT/INR. 3. Hypothyroidism. Continue Synthroid. 4. Obstructive sleep apnea, noncompliant with CPAP. 5. Hypertension. Continue her Lasix . Monitor the blood pressure in the hospital. 6. Depression. Continue Cymbalta. 7. Gastroesophageal reflux disease. Continue omeprazole. 8. Morbid obesity, need counseling. 9. Deep venous thrombosis prophylaxis, on Coumadin. INR therapeutic. DISPOSITION: Observe in medical floor. PT/OT prior to discharge. Expect discharge home and follow with family doctor. DEVI
[2020-06-24 05:19] LABS: Basophils # (auto) 0.01 K/uL (0-0.2); Basophils % (auto) 0.1 %; Eosinophils # (auto) 0.11 K/uL (0-0.5); Eosinophils % (auto) 1.2 %; Hemoglobin 10.8 g/dL (12.0-16.0); Immature Granulocytes # (auto) 0.09 K/uL (0.00-0.02); Lymphocytes # (auto) 1.88 K/uL (1.2-3.4); Lymphocytes % (auto) 20.4 %; Mean Corpuscular Hemoglobin 31.4 pg (25-34); Mean Corpuscular Hgb Conc 31.8 g/dL (32-36); Mean Corpuscular Volume 98.8 fL (80-100); Mean Platelet Volume 9.2 fL (7.4-10.4); Monocytes % (auto) 8.7 %; Neutrophils # (auto) 6.33 K/uL (1.4-6.5); Neutrophils % (auto) 68.6 %; Platelet Count 354 K/uL (130-400); RDW Coefficient of Variation 14.5 % (11.5-14.5); RDW Standard Deviation 51.9 fL (36.4-46.3); Red Blood Count 3.44 M/uL (4.2-5.4); White Blood Count 9.22 K/uL (4.8-10.8)
[2020-06-24 05:29] LABS: INR 2.3 (0.9-1.1)
[2020-06-24 05:46] LABS: BUN Creatinine Ratio 17.4 (10-20); Calcium 8.3 mg/dl (8.5-10.1); Creatinine Clr Calc Pharmacy 179.5 ml/min; Est GFR (African American) 116.6; Est GFR (Non-African American) 100.6; Magnesium 2.1 mg/dl (1.8-2.4); Potassium 3.6 mmol/L (3.5-5.1)
[2020-06-24] MEDS ORDERED: HYDROmorphone INJ 0.5 MG/0.5 ML SYR IV STA (05:47)
[2020-06-24] MEDS: LEVOTHYROXINE SODIUM 88 MCG TABLET PO SCH (05:57)
[2020-06-24] MEDS: CALCIUM 600MG + VIT D 400 IU TAB PO SCH (08:15)
[2020-06-24] MEDS: BuPROPion SR 150 MG TABCR PO SCH ×2 (08:15→13:03)
[2020-06-24] MEDS: PANTOprazole 40 MG TAB PO SCH (08:15)
[2020-06-24] MEDS: DULOXETINE HCL 60 MG CAP PO SCH (08:16)
[2020-06-24] MEDS: FUROSEMIDE 20 MG TAB PO SCH (08:16)
[2020-06-24] MEDS ORDERED: DAPTOMYCIN CONSULT ACTIVE PRN (08:33)
[2020-06-24] MEDS ORDERED: VANCOMYCIN HCL 2,000 MG in SODIUM CHLORIDE 0.9% 500 ML IV SCH (09:00)
[2020-06-24] MEDS: FLUTICASONE PROPIONATE NA SPR 16 GM BTL SCH (09:37)
--- NOTE | 2020-06-24 10:33 | Orthopedic Consultation ---
Date of Consultation June 24, 2020 Assessment & Plan (1) Cellulitis of leg, right: Continue with IV antibiotics per medical team, ice and elevation. (2) Hematoma of right lower leg: Continue with conservative treatment at this time, ice, elevation, tight control of INR, I would limit weightbearing and therapy on her right lower extremity until symptoms improve, clinical exam including passive and active range of motion of the ankle, as well as chronicity to injury and decreasing size of hematoma on imaging I have low suspicion for compartment syndrome at this time. Patient already on therapeutic warfarin however due to recent trauma and increasing edema and erythema to her right lower extremity will recommend venous Doppler rule out DVT. The patient is on 60 MME daily narcotic requirement chronically, recommend pain management evaluation. We will follow with you. Thank you for the consultation History of Present Illness Reason for Consultation: Right lower extremity hematoma and cellulitis Attending Physician: Kerry Couch MD History of Present Illness The patient is a 50-year-old female with past medical history below who presented to [facility] emergency department secondary to increasing pain and erythema to her right lower extremity. Patient sustained a fall 10 days prior to admission and was seen at the emergency department, ultrasound demonstrated 15 cm hematoma, patient on warfarin. Patient return to the emergency department due to increased erythema and pain to the right lower extremity on 06/23/2020. She was admitted for further inpatient observation and treatment. CT scan of the right lower extremity demonstrated slightly decreasing size of hematoma. Patient denies any numbness or tingling to her right lower extremity. Allergies Allergy/AdvReac Type Severity Reaction Status Date / Time latex Allergy Intermediate SKIN Verified 06/23/20 19:48 IRRITATION adhesive AdvReac Intermediate skin Verified 06/23/20 19:48 tearing NYLON STITCHES Allergy Mild erythema/pu Uncoded 06/23/20 19:48 s Home Medications Home Medications Medication Instructions Recorded Confirmed Type calcium carbonate 600 mg calcium 600 mg PO QAM tab 06/29/19 06/23/20 History (1,500 mg) tablet cyclobenzaprine 5 mg tablet 5 mg PO HS PRN tab 06/29/19 06/23/20 History fluticasone propionate 50 2 sprays INTRANASAL DAILY gm 06/29/19 06/23/20 History mcg/actuation nasal spray,suspension furosemide 20 mg tablet 20 mg PO QAM tab 06/29/19 06/23/20 History iron,carbonyl 65 mg-vitamin C 125 1 tab PO TID tab 06/29/19 06/23/20 History mg tablet,delayed release levothyroxine 88 mcg tablet 88 mcg PO DAILYBB tab 06/29/19 06/23/20 History omeprazole 20 mg tablet,delayed 40 mg PO QAM tab 06/29/19 06/23/20 History release oxycodone-acetaminophen 10 mg-325 1 tab PO TID PRN tab 06/29/19 06/23/20 History mg tablet potassium gluconate 595 mg (99 mg) 595 mg PO HS tab 06/29/19 06/23/20 History tablet warfarin 10 mg tablet See Rx Instructions .ROUTE 06/29/19 06/23/20 History .COMPLEX tab zolpidem 5 mg tablet 5 mg PO HS PRN tab 06/29/19 06/23/20 History bupropion HCl See Rx Instructions .ROUTE .COMPLEX 06/14/20 06/23/20 History duloxetine 60 mg PO QAM 06/14/20 06/23/20 History fexofenadine-pseudoephedrine 1 tab PO Q12H PRN 06/14/20 06/23/20 History [Ayde-D 12 Hour] folic acid 5 mg PO HS 06/14/20 06/23/20 History Patient History Medical History Chronic back pain DVT (deep venous thrombosis) Factor V deficiency GERD (gastroesophageal reflux disease) Kidney stone on left side Morbid obesity Narcotic dependence Thrombophlebitis of right saphenous vein Surgical History History of gastric bypass Social History Smoking Status: Never smoker Hx Alcohol Use: No Hx Substance Use: No Preferred Language: Korean Communication Ability: Effective [employer] 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: No Beliefs That Will Affect Care: None Current Living Situation: Significant Other Current Living Situation Comment: boyfriend Feels Safe at Home: Yes Safety Concerns: Feels Safe At This Time Review of Systems Review of Systems: All systems reviewed & are unremarkable except as noted in HPI & below Constitutional: as per Subjective / HPI Physical Exam Physical Exam: Right lower extremity neurovascular sensory intact grossly, limited physical exam secondary to severe tenderness to light touch, painless range of motion of dorsiflexion and plantarflexion and resisted plantarflexion of the ankle, chronic venous stasis dermatitis changes, overlying cellulitis, large proximal anterior tibia hematoma appreciable. Constitutional: WD/WN, vitals as above Results & Data ([place]) Vital Signs (Past 12 Hours) Vital Signs Temp Pulse Pulse Resp BP BP Pulse Ox 06/24/20 07:12 36.5 C 81 16 123/76 95 06/23/20 23:30 36.7 C 84 16 178/84 H 97 06/23/20 23:09 80 16 159/80 H 95 06/23/20 23:00 80 16 159/80 H [address] SCAN OF THE RIGHT TIBIA AND FIBULA WITH IV CONTRAST CLINICAL HISTORY: Right lower extremity swelling and erythema. COMPARISON STUDY: Radiograph centered right tibia and fibula and right lower extremity venous ultrasound dated 06/14/2020. TECHNIQUE: Following the IV administration of 89 cc of Optiray 320, CT scan of the right tibia and fibula is performed from the knee to the ankle. Images are reviewed in the axial, sagittal, and coronal planes. IV contrast was administered without complication. A dose lowering technique was utilized adhering to the principles of ALARA. CT DOSE: 483.46 mGy.cm FINDINGS: The skeletal structures are osteopenic. There is no evidence of tibial or fibular fracture. No bony erosion is identified. Minimal benign appearing periostitis is noted along the distal fibular shaft, likely due to chronic stasis. The knee and ankle joints are grossly maintained. There are large dorsal and plantar calcaneal enthesophytes. Degenerative change is noted in the knee joint with mild lateral subluxation of the patella. There is a small knee joint effusion. There is diffuse superficial and deep soft tissue edema identified throughout the right lower extremity with overlying dermal thickening. There is a hyperdense fluid collection identified in the anterolateral soft tissues of the upper calf best seen on axial image #141. This measures approximately 11 x 9 x 3.5 cm and is typical in appearance for a hematoma. No additional organized fluid collection is identified. There is generalized atrophy of the regional musculature. No soft tissue gas is seen. Numerous calcified phleboliths are observed. IMPRESSION: 1. No acute bony abnormality is identified involving the right tibia or fibula. 2. There is an 11 cm hyperdense fluid collection identified in the anterolateral soft tissues of the upper calf. The appearance is typical for a hematoma. Clinical correlation will be required and clinical follow-up to resolution is recommended. 3. Diffuse superficial and deep soft tissue edema is present throughout the right lower extremity. This could be related to volume status/fluid overload or could be seen with cellulitis. Again, clinical correlation will be required.
--- NOTE | 2020-06-24 12:27 | Hospitalist Progress Note ---
Date of Service June 24, 2020 Assessment & Plan Admission and Anticipated Discharge Date Admission Date: June 23, 2020 Subjective pt complains of pain on rt lower extremity 10/10 no fever or chills no sob or cough Review of Systems Musculoskeletal: right leg pain Physical Exam Constitutional: WD/WN, vitals as above + obese Eyes: PERRL, conjunctivae normal, anicteric sclerae ENMT: external ear and nose normal, oropharynx normal Neck: trachea midline, no thyromegaly Respiratory: normal respiratory effort, lungs clear to auscultation Cardiovascular: Rate/Rhythm: regular rate and regular rhythm Extremities: + edema +3 pedal edema Gastrointestinal (Abdomen): Percussion/Palpation: abdomen soft; abdomen nontender Musculoskeletal: Right leg: Large swelling, on right upper leg, no overlying ecchymosis, area is very tender, Diffuse erythema on the right mid leg Positive edema Left lower extremity: Normal study, positive edema Neurologic: PERRL, EOMI, accommodation nl, no face palsy, no dysarthria Psychiatric: A+Ox3, euthymic affect Results & Data Results & Data ([facility]) Vital Signs (Past 12 Hours) Vital Signs Temp Pulse Resp BP Pulse Ox 06/24/20 07:12 36.5 C 81 16 123/76 95
[2020-06-24] MEDS: HYDROmorphone INJ 1 MG/ML SYRINGE IV PRN ×3 (12:30→20:47)
--- NOTE | 2020-06-24 14:52 | Ultrasound Report ---
RIGHT LOWER EXTREMITY VENOUS DOPPLER HISTORY: Right leg swelling. Rule out DVT COMPARISON STUDY: None. FINDINGS: There is normal compressibility, flow, and augmentation within the right lower extremity de ep venous system. 16.1 x 3.6 x 7.8 cm complex fluid collection within the subcutaneous soft tissues o f the superolateral lower leg. This favors a subcutaneous hematoma. This contains septations and inte rnal echoes. No associated vascular flow. IMPRESSION: No DVT within the right lower extremity. A 16.1 x 3.6 x 7.8 cm subcutaneous complex fluid collection within the superolateral lower leg. This favors a subcutaneous hematoma. ACT 112: Negative or not required by law. Electronically signed by: Sergio Meredith M.D. 06/24/2020 2:51 PM
[2020-06-24] MEDS: DAPTOmycin 475 MG in SYRINGE 0 ML IV SCH (16:10)
--- NOTE | 2020-06-24 16:48 | Communication Note ---
Date of Service: June 24, 2020 Assessment and plan: right lower extremity hematoma: due to trauma while on Coumadin Patient sustained a fall approximately 2 weeks ago, Developed right lower extremity hematoma Presents with worsening swelling, pain, erythema on right lower extremity CT of rt extremity shows 11 cm hypodense fluid collection on the anterior lateral soft tissue of right upper cough, suggestive of hematoma Persistent hematoma possible secondary to anticoagulation status We will hold Coumadin today Orthopedics consulted, appreciate input, recommend conservative management with limb elevation cold compression No indication for I&D Right lower extremity cellulitis: Secondary to above No evidence of sepsis Continue with IV daptomycin History of factor V Leiden mutation/hx of lower ext DVT On Coumadin, INR 2.3 We will hold Coumadin for allow to INR lower to accelerate resolution of hematoma Right lower extremity pain, due to above Patient is requiring multiple doses of Percocet, at home, as well as here Patient management consulted Full code DVT prophylaxis patient is anticoagulated Disposition : expected to be discharged home when medically stable PT/OT eval
[2020-06-24] MEDS: FOLIC ACID 1 MG TAB PO SCH (20:47)
[2020-06-24] MEDS ORDERED: NON-FORMULARY MEDICATION (Potassium Gluconate 595 MG) PO SCH (21:00)
[2020-06-24] MEDS: CYCLOBENZAPRINE HCL 5 MG TAB PO PRN (22:23)
[2020-06-24] MEDS: FEXOFENADINE 60MG/PSEUDOEPHEDRINE 120MG TAB PO PRN (22:56)
[2020-06-25] MEDS: HYDROmorphone INJ 1 MG/ML SYRINGE IV PRN ×3 (00:38→19:40)
[2020-06-25 05:41] LABS: Hematocrit (blood only) 36.5 % (37-47); Hemoglobin 11.6 g/dL (12.0-16.0); Mean Corpuscular Hemoglobin 31.8 pg (25-34); Mean Corpuscular Hgb Conc 31.8 g/dL (32-36); Mean Platelet Volume 8.8 fL (7.4-10.4); Platelet Count 374 K/uL (130-400); RDW Coefficient of Variation 14.7 % (11.5-14.5); RDW Standard Deviation 53.3 fL (36.4-46.3); Red Blood Count 3.65 M/uL (4.2-5.4); White Blood Count 7.24 K/uL (4.8-10.8)
[2020-06-25 05:48] LABS: INR 1.8 (0.9-1.1); Prothrombin Time 18.2 Seconds (9.0-12.0)
[2020-06-25] MEDS: LEVOTHYROXINE SODIUM 88 MCG TABLET PO SCH (06:04)
[2020-06-25 06:16] LABS: Creatinine Clr Calc Pharmacy 169.5 ml/min; Est GFR (African American) 111.6; Est GFR (Non-African American) 96.3
[2020-06-25] MEDS: OXYCODONE/ACETAMINOPHEN 10-325 TAB PO PRN ×3 (08:37→21:16)
[2020-06-25] MEDS: BuPROPion SR 150 MG TABCR PO SCH ×2 (08:38→12:02)
[2020-06-25] MEDS: FUROSEMIDE 20 MG TAB PO SCH (08:38)
[2020-06-25] MEDS: PANTOprazole 40 MG TAB PO SCH (08:38)
[2020-06-25] MEDS: DULOXETINE HCL 60 MG CAP PO SCH (08:38)
[2020-06-25] MEDS: FLUTICASONE PROPIONATE NA SPR 16 GM BTL SCH (08:39)
[2020-06-25] MEDS: CALCIUM 600MG + VIT D 400 IU TAB PO SCH (08:39)
--- NOTE | 2020-06-25 09:58 | Hospitalist Progress Note ---
Date of Service June 25, 2020 Assessment & Plan (1) Cellulitis of leg, right: Right lower extremity cellulitis: Secondary to above No evidence of sepsis Continue with IV daptomycin-improved erythema noted on right lower extremity right lower extremity hematoma: due to trauma while on Coumadin Patient sustained a fall approximately 2 weeks ago, Developed right lower extremity hematoma CT of rt extremity shows 11 cm hypodense fluid collection on the anterior lateral soft tissue of right upper cough, suggestive of hematoma Coumadin's was kept on hold, patient reports improvement of pain and swelling Orthopedics consulted, appreciate input, recommend conservative management with limb elevation cold compression No indication for I&D History of factor V Leiden mutation/hx of lower ext DVT INR 1.8 Coumadin was on hold for allow to INR lower to accelerate resolution of hematoma Coumadin resumed on lower dose Right lower extremity pain, due to above Patient is requiring multiple doses of Percocet, at home, as well as here Patient management consulted-patient input Full code DVT prophylaxis : Coumadin Disposition : expected to be discharged home when medically stable PT/OT eval Admission and Anticipated Discharge Date Admission Date: June 24, 2020 Subjective pt complains of pain on rt lower extremity 10/10 no fever or chills no sob or cough Physical Exam Constitutional: WD/WN, vitals as above + obese Eyes: PERRL, conjunctivae normal, anicteric sclerae ENMT: external ear and nose normal, oropharynx normal Neck: trachea midline, no thyromegaly Respiratory: normal respiratory effort, lungs clear to auscultation Cardiovascular: Rate/Rhythm: regular rate and regular rhythm Extremities: + edema Gastrointestinal (Abdomen): Percussion/Palpation: abdomen soft; abdomen nontender Neurologic: PERRL, EOMI, accommodation nl, no face palsy, no dysarthria Psychiatric: A+Ox3, euthymic affect Results & Data Results & Data ([facility]) Vital Signs (Past 12 Hours) Vital Signs Temp Pulse Resp BP BP Pulse Ox 06/25/20 07:13 36.8 C 81 18 117/66 93 06/24/20 22:05 36.7 C 80 20 125/66 97
--- NOTE | 2020-06-25 09:58 | Orthopedic Progress Note ---
Date of Service June 25, 2020 Assessment & Plan (1) Cellulitis of leg, right: Improving. Continue with IV antibiotics per medical team, ice and elevation. (2) Hematoma of right lower leg: Less pain in the area of the hematoma. Continue with conservative treatment at this time, ice, elevation, tight control of INR, I would limit weightbearing and therapy on her right lower extremity until symptoms improve. No evidence of compartment syndrome at this time. Patient already on Warfarin with plans to keep INR around 2. The patient is on 60 MME daily narcotic requirement chronically, recommend pain management evaluation. Continued improvement. Ortho will sign off at this time. Please call with any questions or worsening symptoms. Thank you for the consultation Admission and Anticipated Discharge Date Admission Date: June 24, 2020 Subjective Pt sitting up in bed discussing her care with Dr. Couch. No new complaints. The patient and Dr. Couch agree that her leg is improving. Continues to have moderate pain in the main area of the cellulitis and around the hematoma at times. Physical Exam Physical Exam: Central area of cellulitis of the RLE. Erythema lessening per patient / Dr Couch. She has some noticeable decrease in her swelling over the area of cellulitis with wrinkling of the skin noted. Moving the ankle and toes well without increased pain. Denies pain with passive DF of the great toe/ankle. Toes pink/warm. Results & Data ([facility]) Vital Signs (Past 12 Hours) Vital Signs Temp Pulse Resp BP BP Pulse Ox 06/25/20 07:13 36.8 C 81 18 117/66 93 06/24/20 22:05 36.7 C 80 20 125/66 97
--- NOTE | 2020-06-25 11:17 | Pain Management Consultation ---
Date of Consultation June 25, 2020 Assessment & Plan (1) Cellulitis of leg, right: 1. PDMP was reviewed which shows utilization of Percocet 10/3 25 mg up to 4 times daily since September 2019 with 1 prescriber. Will increase number of tablets up to 4 times daily during this hospital admission. In addition recommend utilization of gabapentin 300 mg p.o. 3 times daily as well as contin uation of duloxetine to further augment pain relief. Orders are written. Patient should have a prescription for Narcan at home due to overall daily dosing. 2. Pain should improve as cellulitis improves. Antibiotic therapy per hospitalists. 3. There is no role for interventional pain management at this time. 4. Recommend a course of physical therapy and Occupational Therapy while either inpatient or outpatient for overall conditioning. 5. Thank you very much for this consultation please call with any questions. (2) Hematoma of right lower leg: (3) Anticoagulated on warfarin: (4) Narcotic dependence: History of Present Illness Attending Physician: Kerry Couch MD Allergies Allergy/AdvReac Type Severity Reaction Status Date / Time latex Allergy Intermediate SKIN Verified 06/23/20 19:48 IRRITATION adhesive AdvReac Intermediate skin Verified 06/23/20 19:48 tearing NYLON STITCHES Allergy Mild erythema/pu Uncoded 06/23/20 19:48 s Home Medications Home Medications Medication Instructions Recorded Confirmed Type calcium carbonate 600 mg calcium 600 mg PO QAM tab 06/29/19 06/23/20 History (1,500 mg) tablet cyclobenzaprine 5 mg tablet 5 mg PO HS PRN tab 06/29/19 06/23/20 History fluticasone propionate 50 2 sprays INTRANASAL DAILY gm 06/29/19 06/23/20 History mcg/actuation nasal spray,suspension furosemide 20 mg tablet 20 mg PO QAM tab 06/29/19 06/23/20 History iron,carbonyl 65 mg-vitamin C 125 1 tab PO TID tab 06/29/19 06/23/20 History mg tablet,delayed release levothyroxine 88 mcg tablet 88 mcg PO DAILYBB tab 06/29/19 06/23/20 History omeprazole 20 mg tablet,delayed 40 mg PO QAM tab 06/29/19 06/23/20 History release oxycodone-acetaminophen 10 mg-325 1 tab PO TID PRN tab 06/29/19 06/23/20 H istory mg tablet potassium gluconate 595 mg (99 mg) 595 mg PO HS tab 06/29/19 06/23/20 History tablet warfarin 10 mg tablet See Rx Instructions .ROUTE 06/29/19 06/23/20 History .COMPLEX tab zolpidem 5 mg tablet 5 mg PO HS PRN tab 06/29/19 06/23/20 History bupropion HCl See Rx Instructions .ROUTE .COMPLEX 06/14/20 06/23/20 History duloxetine 60 mg PO QAM 06/14/20 06/23/20 History fexofenadine-pseudoephedrine 1 tab PO Q12H PRN 06/14/20 06/23/20 History [Ayde-D 12 Hour] folic acid 5 mg PO HS 06/14/20 06/23/20 History Pain History Chief Complaint Chief Complaint: 50-year-old female with history of right lower extremity pain since sustaining a fall as an outpatient just prior to admission. She was subsequently diagnosed with a 15 cm hematoma and developed cellulitis in her right lower extremity. No DVT noted on venous Doppler. She states that the pain currently is 8 out of 10 characterized as sharp stabbing [id number] and a scratching deep inside of the leg. She denies pain in other regions of her body but does admit to intermittent low back pain as an outpatient. She is chronically utilized Percocet 10/3 25 mg up to 4 tablets daily as prescribed by Dr. Brent Pickering. While admitted she is only been utilizing Percocet 3 times daily. In addition she utilize hydromorphone 4.5 mg IV over the last 24 hours to further minimize pain. She denies any side effects of her opiate utilization including constipation or mental sedation at this time. Pain Location Full Body Front + Back: 1. Pain Intensity [facility] Combined Pain Scale: 8-Debilitating - Impairs activity. Can't maintain a conversation. 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 Recent memory appears grossly intact Eyes: Pupils are equally round and reactive to light with normal size pupils, eyelids appear normal Ear, nose, mouth, and throat: Moist nasal and oral membranes, lips and tongues appear normal, no external ear abnormalities are noted Neck: The trachea is midline without deviation and no thyromegaly is noted Respiratory: Normal respiratory effort without distress, no audible wheezes or rhonchi CV: Normal S1 and S2, 2+ dorsalis pedis and posterior tibial pulses in the right lower extremity Chest: Deferred GI/abdomen: Protuberant and soft Musculoskeletal: Head is normocephalic and atraumatic, gait not observed Cervical: Lordotic curve: Normal Strength: Strength is grossly equal bilaterally with 5 out of 5 strength in all planes Sensation of upper extremities: Intact bilaterally Deep tendon reflexes: Rated at 2+ in bilateral biceps, triceps, brachial radialis Myofascial spasm: No appreciable spasm. No discrete trigger points noted Lumbar: Range of motion is normal with extension, flexion, side-bending, rotation Strength: Strength is grossly equal bilaterally with 5 out of 5 strength in all planes Sensation of lower extremities: Intact on the left, patchy dysesthesias and paresthesias and nondermatomal distribution of the right lower extremity distal to the knee Deep tendon reflexes: Rated at 1+ in bilateral L4 and S1 Pathologic reflexes noted: None Skin: Left lower extremity unremarkable. Right lower extremity has evidence of cellulitis, erythema and edema noted. Diffusely tender distal to the right knee. Skin is thickened no appreciable hair or nail growth abnormalities. No vasomotor instability noted. Neuro: No nystagmus noted, the tongue is midline, the patient is able to rotate their head bilaterally : Deferred Results ([facility]) Diagnostic Review CT Findings: 06/23/20 CT SCAN OF THE RIGHT TIBIA AND FIBULA WITH IV CONTRAST CLINICAL HISTORY: Right lower extremity swelling and erythema. COMPARISON STUDY: Radiograph centered right tibia and fibula and right lower extremity venous ultrasound dated 06/14/2020. TECHNIQUE: Following the IV administration of 89 cc of Optiray 320, CT scan of the right tibia and fibula is performed from the knee to the ankle. Images are reviewed in the axial, sagittal, and coronal planes. IV contrast was administered without complication. A dose lowering technique was utilized adhering to the principles of ALARA. CT DOSE: 483.46 mGy.cm FINDINGS: The skeletal structures are osteopenic. There is no evidence of tibial or fibular fracture. No bony erosion is identified. Minimal benign appearing periostitis is noted along the distal fibular shaft, likely due to chronic stasi s. The knee and ankle joints are grossly maintained. There are large dorsal and plantar calcaneal enthesophytes. Degenerative change is noted in the knee joint with mild lateral subluxation of the patella. There is a small knee joint effusion. There is diffuse superficial and deep soft tissue edema identified throughout the right lower extremity with overlying dermal thickening. There is a hyperdense fluid collection identified in the anterolateral soft tissues of the upper calf best seen on axial image #141. This measures approximately 11 x 9 x 3.5 cm and is typical in appearance for a hematoma. No additional organized fluid collection is identified. There is generalized atrophy of the regional musculature. No soft tissue gas is seen. Numerous calcified phleboliths are observed. IMPRESSION: 1. No acute bony abnormality is identified involving the right tibia or fibula. 2. There is an 11 cm hyperdense fluid collection identified in the anterolateral soft tissues of the upper calf. The appearance is typical for a hematoma. Clinical correlation will be required and clinical follow-up to resolution is recommended. 3. Diffuse superficial and deep soft tissue edema is present throughout the right lower extremity. This could be related to volume status/fluid overload or could be seen with cellulitis. Again, clinical correlation will be required. Other Findings: 06/24/20 RIGHT LOWER EXTREMITY VENOUS DOPPLER HISTORY: Right leg swelling. Rule out DVT COMPARISON STUDY: None. FINDINGS: There is normal compressibility, flow, and augmentation within the right lower extremity deep venous system. 16.1 x 3.6 x 7.8 cm complex fluid collection within the subcutaneous soft tissues of the superolateral lower leg. This favors a subcutaneous hematoma. This contains septations and internal echoes. No associated vascular flow. IMPRESSION: No DVT within the right lower extremity. A 16.1 x 3.6 x 7.8 cm subcutaneous complex fluid collection within the superolateral lower leg. This favors a subcutaneous hematoma. Previous Records Review Previous Records: personally reviewed by [place] Opioid Risk Assessment Opioid Risk Assessment: risk assessment performed and minimal risk identified
[2020-06-25] MEDS: FERROUS SULFATE 325 MG TAB PO SCH ×2 (12:01→21:18)
[2020-06-25] MEDS: GABAPENTIN 300 MG CAP PO SCH ×2 (12:01→21:17)
[2020-06-25] MEDS: ASCORBIC ACID 500 MG TAB PO SCH ×2 (12:01→21:20)
[2020-06-25] MEDS: DAPTOmycin 475 MG in SYRINGE 0 ML IV SCH (15:29)
[2020-06-25] MEDS ORDERED: WARFARIN SOD 2.5 MG TAB PO SCH (16:00)
[2020-06-25] MEDS: FOLIC ACID 1 MG TAB PO SCH (21:18)
[2020-06-25] MEDS: CYCLOBENZAPRINE HCL 5 MG TAB PO PRN (22:01)
[2020-06-26] MEDS: HYDROmorphone INJ 1 MG/ML SYRINGE IV PRN (01:45)
[2020-06-26 02:26] LABS: Hematocrit (blood only) 38.3 % (37-47); Hemoglobin 12.1 g/dL (12.0-16.0); Mean Corpuscular Hemoglobin 31.4 pg (25-34); Mean Corpuscular Hgb Conc 31.6 g/dL (32-36); Mean Corpuscular Volume 99.5 fL (80-100); Mean Platelet Volume 8.9 fL (7.4-10.4); Platelet Count 375 K/uL (130-400); RDW Coefficient of Variation 14.6 % (11.5-14.5); RDW Standard Deviation 52.5 fL (36.4-46.3); Red Blood Count 3.85 M/uL (4.2-5.4)
[2020-06-26 02:34] LABS: INR 1.5 (0.9-1.1); Prothrombin Time 15.7 Seconds (9.0-12.0)
[2020-06-26 02:43] LABS: Creatinine Clr Calc Pharmacy 158.5 ml/min; Est GFR (African American) 102.9; Est GFR (Non-African American) 88.8
[2020-06-26] MEDS: LEVOTHYROXINE SODIUM 88 MCG TABLET PO SCH (06:26)
[2020-06-26] MEDS: OXYCODONE/ACETAMINOPHEN 10-325 TAB PO PRN ×2 (06:51→18:54)
[2020-06-26] MEDS: BuPROPion SR 150 MG TABCR PO SCH ×2 (09:41→11:29)
[2020-06-26] MEDS: GABAPENTIN 300 MG CAP PO SCH ×3 (09:41→21:58)
[2020-06-26] MEDS: PANTOprazole 40 MG TAB PO SCH (09:41)
[2020-06-26] MEDS: ASCORBIC ACID 500 MG TAB PO SCH ×3 (09:41→21:57)
[2020-06-26] MEDS: FERROUS SULFATE 325 MG TAB PO SCH ×3 (09:41→21:58)
[2020-06-26] MEDS: FLUTICASONE PROPIONATE NA SPR 16 GM BTL SCH (09:42)
[2020-06-26] MEDS: DULOXETINE HCL 60 MG CAP PO SCH (09:42)
[2020-06-26] MEDS: CALCIUM 600MG + VIT D 400 IU TAB PO SCH (09:42)
[2020-06-26] MEDS: FUROSEMIDE 20 MG TAB PO SCH (09:42)
--- NOTE | 2020-06-26 15:31 | Hospitalist Progress Note ---
Date of Service June 26, 2020 Assessment & Plan (1) Cellulitis of leg, right: Right lower extremity cellulitis: Secondary to above No evidence of sepsis Continue with IV daptomycin-improved erythema/swelling noted on right lower extremity plan to change to PO Keflex tomorrow ( pt was treated with PO Doxy in past with no improvement ) right lower extremity hematoma: due to trauma while on Coumadin Patient sustained a fall approximately 2 weeks ago, Developed right lower extremity hematoma CT of rt extremity shows 11 cm hypodense fluid collection on the anterior lateral soft tissue of right upper cough, suggestive of hematoma Coumadin's was kept on hold, patient reports improvement of pain and swelling Orthopedics consulted, appreciate input, recommend conservative management with limb elevation cold compression No indication for I&D History of factor V Leiden mutation/hx of lower ext DVT INR 1.8 Coumadin was on hold for allow to INR lower to accelerate resolution of hematoma Coumadin resumed ordered for IV heparin bridge as high risk for clot Right lower extremity pain, due to above Patient is requiring multiple doses of Percocet, at home, as well as here Patient management consulted-appreciate input started on Gabapentin Full code DVT prophylaxis : Coumadin/IV heparin Disposition : expected to be discharged home when medically stable PT/OT eval Admission and Anticipated Discharge Date Admission Date: June 24, 2020 Subjective Pt reports her rt leg pain remains unchanged appears to be comfortable no fever or chills improvement of swelling and erythema on right leg Physical Exam Constitutional: WD/WN, vitals as above + obese Eyes: PERRL, conjunctivae normal, anicteric sclerae ENMT: external ear and nose normal, oropharynx normal Neck: trachea midline, no thyromegaly Respiratory: normal respiratory effort, lungs clear to auscultation Cardiovascular: Rate/Rhythm: regular rate and regular rhythm Extremities: + edema Gastrointestinal (Abdomen): Percussion/Palpation: abdomen soft; abdomen nontender Neurologic: PERRL, EOMI, accommodation nl, no face palsy, no dysarthria Psychiatric: A+Ox3, euthymic affect Results & Data Results & Data ([facility] [place]) Vital Signs (Past 12 Hours) Vital Signs Temp Pulse Resp BP Pulse Ox 06/26/20 15:06 37.3 C 89 18 133/66 99 06/26/20 07:14 36.8 C 76 18 117/72 98
[2020-06-26] MEDS: WARFARIN SOD 10 MG TAB PO SCH ×2 (15:33→16:44)
[2020-06-26] MEDS ORDERED: Heparin IV Standard *NO* Bolus IV SCH (15:40)
[2020-06-26 16:40] LABS: Basophils # (auto) 0.01 K/uL (0-0.2); Basophils % (auto) 0.1 %; Eosinophils # (auto) 0.23 K/uL (0-0.5); Eosinophils % (auto) 2.4 %; Immature Granulocytes # (auto) 0.07 K/uL (0.00-0.02); Immature Granulocytes % (auto) 0.7 %; Lymphocytes # (auto) 1.58 K/uL (1.2-3.4); Lymphocytes % (auto) 16.4 %; Mean Corpuscular Hemoglobin 30.5 pg (25-34); Mean Platelet Volume 9.1 fL (7.4-10.4); Monocytes # (auto) 1.26 K/uL (0.11-0.59); Monocytes % (auto) 13.1 %; Neutrophils # (auto) 6.48 K/uL (1.4-6.5); Neutrophils % (auto) 67.3 %; Platelet Count 404 K/uL (130-400); RDW Coefficient of Variation 14.7 % (11.5-14.5); RDW Standard Deviation 52.8 fL (36.4-46.3); Red Blood Count 3.94 M/uL (4.2-5.4); White Blood Count 9.63 K/uL (4.8-10.8)
[2020-06-26 16:41] LABS: Mean Corpuscular Hgb Conc 30.8 g/dL (32-36)
[2020-06-26] MEDS: HEPARIN SODIUM/DEXTROSE 25,000 UNITS/500 ML BAG IV SCH (16:44)
[2020-06-26] MEDS: DAPTOmycin 475 MG in SYRINGE 0 ML IV SCH (16:48)
[2020-06-26 17:27] LABS: INR 1.3 (0.9-1.1); Partial Thromboplastin Ratio 1.2; Prothrombin Time 13.5 Seconds (9.0-12.0)
[2020-06-26] MEDS: FOLIC ACID 1 MG TAB PO SCH (21:57)
[2020-06-27 00:03] LABS: Partial Thromboplastin Time 54.7 Seconds (21.0-31.0)
[2020-06-27] MEDS: OXYCODONE/ACETAMINOPHEN 10-325 TAB PO PRN ×3 (02:35→20:51)
[2020-06-27] MEDS: HEPARIN SODIUM/DEXTROSE 25,000 UNITS/500 ML BAG IV SCH ×2 (03:59→16:10)
[2020-06-27] MEDS: LEVOTHYROXINE SODIUM 88 MCG TABLET PO SCH (05:37)
[2020-06-27] MEDS: HYDROmorphone INJ 1 MG/ML SYRINGE IV PRN (05:41)
[2020-06-27 06:49] LABS: INR 1.3 (0.9-1.1); Partial Thromboplastin Ratio 2.3
[2020-06-27 06:56] LABS: Creatinine Clr Calc Pharmacy 167.2 ml/min; Est GFR (African American) 109.7; Est GFR (Non-African American) 94.7
[2020-06-27 07:25] LABS: Partial Thromboplastin Time 65.2 Seconds (21.0-31.0)
[2020-06-27] MEDS: FLUTICASONE PROPIONATE NA SPR 16 GM BTL SCH (08:35)
[2020-06-27] MEDS: BuPROPion SR 150 MG TABCR PO SCH ×2 (08:36→11:36)
[2020-06-27] MEDS: ASCORBIC ACID 500 MG TAB PO SCH ×3 (08:37→20:56)
[2020-06-27] MEDS: GABAPENTIN 300 MG CAP PO SCH ×3 (08:37→20:55)
[2020-06-27] MEDS: PANTOprazole 40 MG TAB PO SCH (08:37)
[2020-06-27] MEDS: CALCIUM 600MG + VIT D 400 IU TAB PO SCH (08:37)
[2020-06-27] MEDS: DULOXETINE HCL 60 MG CAP PO SCH (08:37)
[2020-06-27] MEDS: FERROUS SULFATE 325 MG TAB PO SCH ×3 (08:38→20:53)
[2020-06-27] MEDS: FUROSEMIDE 20 MG TAB PO SCH (08:38)
[2020-06-27] MEDS: DAPTOmycin 475 MG in SYRINGE 0 ML IV SCH (16:04)
[2020-06-27] MEDS: WARFARIN SOD 5 MG TAB PO SCH (16:04)
--- NOTE | 2020-06-27 17:45 | Hospitalist Progress Note ---
Date of Service June 27, 2020 Assessment & Plan (1) Cellulitis of leg, right: Present on admission with Right LE pain, redness and swelling CT showed 11 cm hyperdense fluid collection identified in the anterolateral soft tissues of the upper calf. Diffuse superficial and deep soft tissue edema is present throughout the right lower extremity. Doppler of LE showed No DVT within the right lower extremity. A 16.1 x 3.6 x 7.8 cm subcutaneous complex fluid collection within the superolateral lower leg. No evidence of sepsis On IV daptomycin-improved erythema/swelling noted on right lower extremity plan to change to PO Keflex tomorrow ( pt was treated with PO Doxy in past with no improvement ) Right lower extremity hematoma S/P fall while on Coumadin [address] of rt extremity shows 11 cm hypodense fluid collection on the anterior lateral soft tissue of right upper cough, suggestive of hematoma Coumadin's was kept on hold, patient reports improvement of pain and swelling Orthopedics consulted, appreciate input, recommend conservative management with limb elevation cold compression No indication for any surgical procedure as per ortho Hgb stable Continue Coumadin History of factor V Leiden mutation/hx of lower ext DVT Coumadin was on hold due to the RLE hematoma Pt was starting on heparin drip due to high risk for clot Continue heparin drip and coumadin INR 1.3 today Right lower extremity pain Due to fall and hematoma pain management on board recommended to continue percocet QID, gabapentin and duloxetine pain improves Full code DVT prophylaxis : Coumadin/IV heparin Disposition : Expected to be discharged home when medically stable PT/OT eval Admission and Anticipated Discharge Date Admission Date: June 24, 2020 Subjective Pt was seen and examined Lying in bed with no distress Pt said that her RLE pain seems improves with pain med Denies any chest pain, palpitation, dizziness and SOB Physical Exam Physical Exam: General- No acute distress Head- atraumatic Eyes- PERRL, EOMI, ENT- oropharynx clear Neck- supple, no JVD Lungs- clear to auscultation Heart- regular rhythm; no murmur Abdomen- normal bowel sounds, soft, nontender, +obese Extremities- no calf tenderness, +edema Neuro- alert, oriented x 3; PERRL, EOMI; no facial palsy; no dysarthria Skin- warm & dry Results & Data Results & Data ([facility]) Vital Signs (Past 12 Hours) Vital Signs Temp Pulse Resp BP Pulse Ox 06/27/20 15:08 36.7 C 72 22 152/72 H 91 06/27/20 07:38 36.9 C 78 19 126/72 91
[2020-06-27] MEDS ORDERED: WARFARIN SOD 2.5 MG TAB PO ONE (18:45)
[2020-06-27] MEDS: FOLIC ACID 1 MG TAB PO SCH (20:54)
[2020-06-28] MEDS: OXYCODONE/ACETAMINOPHEN 10-325 TAB PO PRN ×3 (03:09→20:50)
[2020-06-28] MEDS: FEXOFENADINE 60MG/PSEUDOEPHEDRINE 120MG TAB PO PRN (03:10)
[2020-06-28] MEDS: HEPARIN SODIUM/DEXTROSE 25,000 UNITS/500 ML BAG IV SCH ×3 (05:03→20:56)
[2020-06-28 06:23] LABS: Hematocrit (blood only) 35.5 % (37-47); Hemoglobin 11.1 g/dL (12.0-16.0); Mean Corpuscular Hemoglobin 30.9 pg (25-34); Mean Corpuscular Hgb Conc 31.3 g/dL (32-36); Mean Corpuscular Volume 98.9 fL (80-100); Mean Platelet Volume 9.4 fL (7.4-10.4); Nucleated RBC # (auto) 0.02 K/uL (0-0); Nucleated RBC % (auto) 0.2 %; Platelet Count 366 K/uL (130-400); RDW Coefficient of Variation 14.8 % (11.5-14.5); RDW Standard Deviation 52.8 fL (36.4-46.3); Red Blood Count 3.59 M/uL (4.2-5.4); White Blood Count 9.22 K/uL (4.8-10.8)
[2020-06-28 06:43] LABS: INR 1.5 (0.9-1.1); Partial Thromboplastin Ratio 2.5; Prothrombin Time 15.8 Seconds (9.0-12.0)
[2020-06-28 06:48] LABS: Partial Thromboplastin Time 70.3 Seconds (21.0-31.0)
[2020-06-28] MEDS: LEVOTHYROXINE SODIUM 88 MCG TABLET PO SCH (06:50)
[2020-06-28] MEDS: ACETAMINOPHEN 325 MG TAB PO PRN ×2 (07:15→15:01)
[2020-06-28] MEDS: FLUTICASONE PROPIONATE NA SPR 16 GM BTL SCH (08:39)
[2020-06-28] MEDS: FERROUS SULFATE 325 MG TAB PO SCH ×3 (08:41→20:44)
[2020-06-28] MEDS: PANTOprazole 40 MG TAB PO SCH (08:41)
[2020-06-28] MEDS: BuPROPion SR 150 MG TABCR PO SCH ×2 (08:41→11:51)
[2020-06-28] MEDS: DULOXETINE HCL 60 MG CAP PO SCH (08:41)
[2020-06-28] MEDS: CALCIUM 600MG + VIT D 400 IU TAB PO SCH (08:41)
[2020-06-28] MEDS: ASCORBIC ACID 500 MG TAB PO SCH ×3 (08:41→20:45)
[2020-06-28] MEDS: GABAPENTIN 300 MG CAP PO SCH ×3 (08:41→20:45)
[2020-06-28] MEDS: FUROSEMIDE 20 MG TAB PO SCH (08:42)
[2020-06-28 13:45] LABS: Partial Thromboplastin Ratio 2.7
[2020-06-28 13:55] LABS: Partial Thromboplastin Time 74.7 Seconds (21.0-31.0)
[2020-06-28] MEDS: WARFARIN SOD 10 MG TAB PO SCH (15:30)
[2020-06-28] MEDS: DAPTOmycin 475 MG in SYRINGE 0 ML IV SCH (15:31)
--- NOTE | 2020-06-28 19:20 | Hospitalist Progress Note ---
Date of Service June 28, 2020 Assessment & Plan (1) Cellulitis of leg, right: Present on admission with Right LE pain, redness and swelling CT showed 11 cm hyperdense fluid collection identified in the anterolateral soft tissues of the upper calf. Diffuse superficial and deep soft tissue edema is present throughout the right lower extremity. Doppler of LE showed No DVT within the right lower extremity. A 16.1 x 3.6 x 7.8 cm subcutaneous complex fluid collection within the superolateral lower leg. No evidence of sepsis On IV daptomycin-improved erythema/swelling noted on right lower extremity plan to change to PO Keflex tomorrow ( pt was treated with PO Doxy in past with no improvement ) Right lower extremity hematoma S/P fall while on Coumadin [address] of rt extremity shows 11 cm hypodense fluid collection on the anterior lateral soft tissue of right upper cough, suggestive of hematoma Coumadin's was kept on hold, patient reports improvement of pain and swelling Orthopedics consulted, appreciate input, recommend conservative management with limb elevation cold compression No indication for any surgical procedure as per ortho Hgb stable Continue Coumadin History of factor V Leiden mutation/hx of lower ext DVT Coumadin was on hold due to the RLE hematoma Pt was starting on heparin drip due to high risk for clot Continue heparin drip and coumadin INR 1.5 today Right lower extremity pain Due to fall and hematoma ambulatory dysfunction pain management on board recommended to continue percocet QID, gabapentin and duloxetine If no improvement, will consider inpatient rehab fall precaution Full code DVT prophylaxis : Coumadin/IV heparin Disposition : Expected to be discharged home when medically stable PT/OT eval Admission and Anticipated Discharge Date Admission Date: June 24, 2020 Subjective Pt was seen and examined Lying in bed with no distress Pt said that she continues to have alot of pain when standing in her right leg She said that she does not think she would be able to move around once discharge due to the pain Denies any chest pain, palpitation, dizziness and SOB Physical Exam Physical Exam: General- No acute distress Head- atraumatic Eyes- PERRL, EOMI, ENT- oropharynx clear Neck- supple, no JVD Lungs- clear to auscultation Heart- regular rhythm; no murmur Abdomen- normal bowel sounds, soft, nontender, +obese Extremities- no calf tenderness, +edema Neuro- alert, oriented x 3; PERRL, EOMI; no facial palsy; no dysarthria Skin- warm & dry Results & Data Results & Data ([facility]) Vital Signs (Past 12 Hours) Vital Signs Temp Pulse Resp BP Pulse Ox 06/28/20 15:21 37.3 C 69 18 125/71 97
[2020-06-28 20:30] LABS: Partial Thromboplastin Ratio 2.6
[2020-06-28 20:33] LABS: Partial Thromboplastin Time 71.7 Seconds (21.0-31.0)
[2020-06-28] MEDS: FOLIC ACID 1 MG TAB PO SCH (20:44)
[2020-06-29 03:02] LABS: Hematocrit (blood only) 35.5 % (37-47); Mean Corpuscular Hemoglobin 30.7 pg (25-34); Mean Corpuscular Volume 99.2 fL (80-100); Platelet Count 348 K/uL (130-400); RDW Coefficient of Variation 14.8 % (11.5-14.5); RDW Standard Deviation 53.2 fL (36.4-46.3); Red Blood Count 3.58 M/uL (4.2-5.4); White Blood Count 7.84 K/uL (4.8-10.8)
[2020-06-29 03:29] LABS: INR 1.8 (0.9-1.1); Partial Thromboplastin Ratio 2.6; Prothrombin Time 18.8 Seconds (9.0-12.0)
[2020-06-29 03:34] LABS: Partial Thromboplastin Time 72.3 Seconds (21.0-31.0)
[2020-06-29] MEDS: OXYCODONE/ACETAMINOPHEN 10-325 TAB PO PRN ×3 (05:20→21:17)
[2020-06-29] MEDS: LEVOTHYROXINE SODIUM 88 MCG TABLET PO SCH (05:21)
[2020-06-29] MEDS: HEPARIN SODIUM/DEXTROSE 25,000 UNITS/500 ML BAG IV SCH ×2 (07:09→22:42)
[2020-06-29] MEDS: PANTOprazole 40 MG TAB PO SCH (08:02)
[2020-06-29] MEDS: CALCIUM 600MG + VIT D 400 IU TAB PO SCH (08:02)
[2020-06-29] MEDS: DULOXETINE HCL 60 MG CAP PO SCH (08:02)
[2020-06-29] MEDS: FUROSEMIDE 20 MG TAB PO SCH (08:02)
[2020-06-29] MEDS: GABAPENTIN 300 MG CAP PO SCH ×3 (08:03→21:01)
[2020-06-29] MEDS: FLUTICASONE PROPIONATE NA SPR 16 GM BTL SCH (08:03)
[2020-06-29] MEDS: BuPROPion SR 150 MG TABCR PO SCH ×2 (08:03→12:30)
[2020-06-29] MEDS: ASCORBIC ACID 500 MG TAB PO SCH ×3 (08:04→21:01)
[2020-06-29] MEDS: FERROUS SULFATE 325 MG TAB PO SCH ×3 (08:04→21:00)
[2020-06-29 10:13] LABS: Partial Thromboplastin Ratio 2.1
[2020-06-29 10:14] LABS: Partial Thromboplastin Time 57.2 Seconds (21.0-31.0)
--- NOTE | 2020-06-29 16:27 | Hospitalist Progress Note ---
Date of Service June 29, 2020 Assessment & Plan (1) Cellulitis of leg, right: Present on admission with Right LE pain, redness and swelling CT showed 11 cm hyperdense fluid collection identified in the anterolateral soft tissues of the upper calf. Diffuse superficial and deep soft tissue edema is present throughout the right lower extremity. Doppler of LE showed No DVT within the right lower extremity. A 16.1 x 3.6 x 7.8 cm subcutaneous complex fluid collection within the superolateral lower leg. No evidence of sepsis On IV daptomycin-improved erythema/swelling noted on right lower extremity plan to change to PO Keflex tomorrow ( pt was treated with PO Doxy in past with no improvement ) Right lower extremity hematoma S/P fall while on Coumadin [address] of rt extremity shows 11 cm hypodense fluid collection on the anterior lateral soft tissue of right upper cough, suggestive of hematoma Coumadin's was kept on hold, patient reports improvement of pain and swelling Orthopedics consulted, appreciate input, recommend conservative management with limb elevation cold compression No indication for any surgical procedure as per ortho Will get an u/s for follow up of the hematoma since pt continue to have alot of pain Hgb stable Continue Coumadin History of factor V Leiden mutation/hx of lower ext DVT Coumadin was on hold due to the RLE hematoma Pt was starting on heparin drip due to high risk for clot Continue heparin drip and coumadin INR 1.8 today Right lower extremity pain Due to fall and hematoma ambulatory dysfunction pain management on board recommended to continue percocet QID, gabapentin and duloxetine If no improvement, will consider inpatient rehab fall precaution Full code DVT prophylaxis : Coumadin/IV heparin Disposition : Possible discharge to rehab tomorrow PT/OT eval Admission and Anticipated Discharge Date Admission Date: June 24, 2020 Subjective Pt was seen and examined Lying in bed with no distress Pt said that she continues to have tenderness in her lower extremities but seems to slightly improves She said that today she was able to walk with therapy without crying Denies any chest pain, palpitation, dizziness and SOB Physical Exam Physical Exam: General- No acute distress Head- atraumatic Eyes- PERRL, EOMI, ENT- oropharynx clear Neck- supple, no JVD Lungs- clear to auscultation Heart- regular rhythm; no murmur Abdomen- normal bowel sounds, soft, nontender, +obese Extremities- no calf tenderness, +edema Neuro- alert, oriented x 3; PERRL, EOMI; no facial palsy; no dysarthria Skin- warm & dry Results & Data Results & Data ([facility]) Vital Signs (Past 12 Hours) Vital Signs Temp Pulse Resp BP BP Pulse Ox 06/29/20 14:58 36.7 C 78 22 129/73 93 06/29/20 07:15 36.8 C 76 16 115/70 95
[2020-06-29] MEDS: DAPTOmycin 475 MG in SYRINGE 0 ML IV SCH (16:49)
[2020-06-29] MEDS: WARFARIN SOD 5 MG TAB PO SCH (17:00)
--- NOTE | 2020-06-29 20:45 | Ultrasound Report ---
US extremity nonvascular CLINICAL HISTORY: F/U right LE hematoma COMPARISON STUDY: Right lower extremity venous Doppler ultrasound June 24, 2020. CT of the righ t tibia and fibula June 23, 2020. FINDINGS: Note is again made of a complex fluid collection of the anterolateral aspect of the right l ower leg. This now measures 15.5 x 7.2 x 3.3 cm. This collection is similar in size to ultrasound of June 24, 2020. IMPRESSION: No significant change in the subcutaneous hematoma of the anterolateral right lower leg, measuring approximately 15.5 x 3.3 x 7.2 cm, since ultrasound June 24, 2020. ACT 112: Negative or not required by law. Electronically signed by: Angel Hernandez M.D. 06/29/2020 8:44 PM
[2020-06-29] MEDS: cephALEXin 500 MG CAP PO SCH (21:00)
[2020-06-29] MEDS: FOLIC ACID 1 MG TAB PO SCH (21:01)
[2020-06-30] MEDS: OXYCODONE/ACETAMINOPHEN 10-325 TAB PO PRN ×2 (05:31→14:32)
[2020-06-30] MEDS: LEVOTHYROXINE SODIUM 88 MCG TABLET PO SCH (05:32)
[2020-06-30 06:16] LABS: Hematocrit (blood only) 37.7 % (37-47); Hemoglobin 11.5 g/dL (12.0-16.0); Mean Corpuscular Hemoglobin 30.5 pg (25-34); Mean Corpuscular Hgb Conc 30.5 g/dL (32-36); Mean Platelet Volume 9.3 fL (7.4-10.4); Platelet Count 372 K/uL (130-400); Red Blood Count 3.77 M/uL (4.2-5.4); White Blood Count 6.21 K/uL (4.8-10.8)
[2020-06-30 06:34] LABS: Partial Thromboplastin Ratio 2.3
[2020-06-30 06:39] LABS: Partial Thromboplastin Time 63.1 Seconds (21.0-31.0)
[2020-06-30 08:08] LABS: INR 2.1 (0.9-1.1); Prothrombin Time 21.4 Seconds (9.0-12.0)
[2020-06-30] MEDS ORDERED: MoRPHine SULFATE 2 MG/ML CARP IV STA (08:56)
[2020-06-30] MEDS: FLUTICASONE PROPIONATE NA SPR 16 GM BTL SCH (09:36)
[2020-06-30] MEDS: FERROUS SULFATE 325 MG TAB PO SCH ×2 (09:36→14:07)
[2020-06-30] MEDS: DULOXETINE HCL 60 MG CAP PO SCH (09:36)
[2020-06-30] MEDS: PANTOprazole 40 MG TAB PO SCH (09:37)
[2020-06-30] MEDS: cephALEXin 500 MG CAP PO SCH (09:37)
[2020-06-30] MEDS: FUROSEMIDE 20 MG TAB PO SCH (09:37)
[2020-06-30] MEDS: GABAPENTIN 300 MG CAP PO SCH ×2 (09:37→14:07)
[2020-06-30] MEDS: ASCORBIC ACID 500 MG TAB PO SCH ×2 (09:38→14:07)
[2020-06-30] MEDS: CALCIUM 600MG + VIT D 400 IU TAB PO SCH (09:38)
[2020-06-30] MEDS: BuPROPion SR 150 MG TABCR PO SCH ×2 (09:39→11:36)
--- NOTE | 2020-06-30 14:47 | Hospitalist Progress Note ---
Date of Service June 30, 2020 Assessment & Plan (1) Cellulitis of leg, right: Present on admission with Right LE pain, redness and swelling CT showed 11 cm hyperdense fluid collection identified in the anterolateral soft tissues of the upper calf. Diffuse superficial and deep soft tissue edema is present throughout the right lower extremity. Doppler of LE showed No DVT within the right lower extremity. A 16.1 x 3.6 x 7.8 cm subcutaneous complex fluid collection within the superolateral lower leg. No evidence of sepsis On IV daptomycin-improved erythema/swelling noted on right lower extremity IV dapto changed to PO Keflex today ( pt was treated with PO Doxy in past with no improvement ) Clinically improved Right lower extremity hematoma S/P fall while on Coumadin [address] of rt extremity shows 11 cm hypodense fluid collection on the anterior lateral soft tissue of right upper cough, suggestive of hematoma Coumadin's was kept on hold, patient reports improvement of pain and swelling Orthopedics consulted, appreciate input, recommend conservative management with limb elevation cold compression No indication for any surgical procedure as per ortho Repeat RLE u/s showed no significant change in the subcutaneous hematoma of the anterolateral right lower leg, measuring approximately 15.5 x 3.3 x 7.2 cm, since ultrasound June 24, 2020. Hgb stable at 11.5 Continue Coumadin History of factor V Leiden mutation/hx of lower ext DVT Coumadin was on hold due to the RLE hematoma Pt was starting on heparin drip due to high risk for clot heparin drip discontinue since INR therapeutic INR 2.1 today [facility] Right lower extremity pain Due to fall and hematoma ambulatory dysfunction pain management on board recommended to continue percocet QID, gabapentin and duloxetine Ortho on board recommended to limit weightbearing and therapy on her right lower extremity until symptoms improve. Continue monitor for compartment syndrome fall precaution Plan to go to rehab today Pain improves Full code DVT prophylaxis : Coumadin Disposition : Discharge to [facility] today for rehab Continue PT/OT eval Admission and Anticipated Discharge Date Admission Date: June 24, 2020 Subjective Pt was seen and examined Lying in bed with no distress Pt said that she had a lot of pain last night during the RLE U/S Pt said that pain worst when applied pressure Denies any chest pain, palpitation, dizziness and SOB Physical Exam Physical Exam: General- No acute distress Head- atraumatic Eyes- PERRL, EOMI, ENT- oropharynx clear Neck- supple, no JVD Lungs- clear to auscultation Heart- regular rhythm; no murmur Abdomen- normal bowel sounds, soft, nontender, +obese Extremities- no calf tenderness, +edema, +tenderness in RLE when apply pressure on Neuro- alert, oriented x 3; PERRL, EOMI; no facial palsy; no dysarthria Skin- warm & dry Results & Data Results & Data ([facility]) Vital Signs (Past 12 Hours) Vital Signs Temp Pulse Resp BP Pulse Ox 06/30/20 07:28 36.7 C 74 18 147/75 H 92
[2020-06-30] MEDS: WARFARIN SOD 10 MG TAB PO SCH (15:31)
--- NOTE | 2020-07-02 08:22 | Discharge Summary ---
Date of Service June 30, 2020 Admission HPI Per Admitting Provider CHIEF COMPLAINT: Right lower extremity pain. HISTORY OF PRESENT ILLNESS: This is a 50-year-old female with past medical history significant for hypothyroidism, heterozygous MTHFR mutation, allergic rhinitis, sleep apnea but not compliant with CPAP, hypertension, obesity, osteoarthritis, chronic pain syndrome, factor V Leiden mutation, history of DVT, history of partial gastrectomy, history of depression, chronic insomnia, nocturnal hypoxemia not using any oxygen at nighttime, presents with severe pain in the right lower extremity. The patient says approximately 11 days ago, she fell and injured right leg.. No loss of consciousness. Did not hit her head. She was able to get up and walk, but she had severe pain. She is on Coumadin for DVT. She was in the ER on 06/14/2020. At that time, on imaging there was no DVT, but showed 12 cm hematoma., no compartment syndrome and was discharged home. Saw PCP on 06/18 and was started on Doxycycline and Prednisone. Again comes to ER today with severe pain in right leg.She is on Coumadin, her INR is therapeutic and CAT scan was done showing 11 cm hypodense fluid collection in the anterolateral soft tissues of her calf. This appearance is typical for hematoma. This seemed to be somewhat lessen in size than in the ultrasound done on 06/14/2020. The patient is afebrile, hemodynamically stable. Complains of severe pain. No leukocytosis. INR is 2.6. Denies any other complaints. Denies any chest pain. No shortness of breath, no cough. No fever, no chills. No headache, no blurred vision, no earache, no runny nose, no sore throat. Appetite is good. No exposure to any COVID patients. No nausea, no abdominal pain. Bowel movements were normal. Micturating fine. Admission Exam Per Admitting Provider GENERAL: The patient is morbidly obese, not in acute distress. VITAL SIGNS: Temperature 37, pulse 70, respiratory rate 22, blood pressure 156/94, oxygen 98% on room air. HEENT: Pupils equal, round, and reactive to light. Oral mucosa moist. NECK: No JVD, no neck masses seen. CARDIOVASCULAR SYSTEM: S1, S2 heard. Regular rate and rhythm. No murmur, no gallop. RESPIRATORY SYSTEM: Normal AP diameter. No accessory muscle use. No wheezing, no crackles. ABDOMEN: Soft, bowel sounds present, nontender. No distention. CENTRAL NERVOUS SYSTEM: Cranial nerves II-XII grossly intact, nonfocal. EXTREMITIES: Right lower extremity is erythematous and tender to palpation from the mid calf to above the ankle region. Some bruises seen in the right knee region. Principal Diagnosis Cellulitis of leg, right Right lower extremity hematoma History of factor V Leiden mutation/hx of lower ext DVT Right lower extremity pain Discharge Exam General- No acute distress Head- atraumatic Eyes- PERRL, EOMI, ENT- oropharynx clear Neck- supple, no JVD Lungs- clear to auscultation Heart- regular rhythm; no murmur Abdomen- normal bowel sounds, soft, nontender, +obese Extremities- no calf tenderness, +edema, +tenderness in RLE when apply pressure on Neuro- alert, oriented x 3; PERRL, EOMI; no facial palsy; no dysarthria Skin- warm & dry Discharge Data Allergies Allergy/AdvReac Type Severity Reaction Status Date / Time latex Allergy Intermediate SKIN Verified 06/23/20 19:48 IRRITATION adhesive AdvReac Intermediate skin Verified 06/23/20 19:48 tearing NYLON STITCHES Allergy Mild erythema/pu Uncoded 06/23/20 19:48 s Consultations 06/23/20 20:01 ED Decision to Admit Stat 06/24/20 00:01 Consult Case Management - Discharge Planning Routine 06/24/20 08:00 Consult Orthopedic Surgery Routine 06/24/20 11:34 Consult Pain Management Routine Ordered Studies 06/23/20 17:50 CT tib/fib RT w con Stat 06/24/20 10:41 US venous doppler LE RT Urgent 06/29/20 16:36 US extremity nonvascular Routine US extremity nonvascular CLINICAL HISTORY: F/U right LE hematoma COMPARISON STUDY: Right lower extremity venous Doppler ultrasound June 24, 2020. CT of the right tibia and fibula June 23, 2020. FINDINGS: Note is again made of a complex fluid collection of the anterolateral aspect of the right lower leg. This now measures 15.5 x 7.2 x 3.3 cm. This collection is similar in size to ultrasound of June 24, 2020. IMPRESSION: No significant change in the subcutaneous hematoma of the anterolateral right lower leg, measuring approximately 15.5 x 3.3 x 7.2 cm, since ultrasound June 24, 2020. ACT 112: Negative or not required by law. Electronically signed by: Angel Hernandez M.D. 06/29/2020 8:44 PM Dictated: 06/29/202040 Transcribed: 06/29/202040 RIGHT LOWER EXTREMITY VENOUS DOPPLER HISTORY: Right leg swelling. Rule out DVT COMPARISON STUDY: None. FINDINGS: There is normal compressibility, flow, and augmentation within the right lower extremity deep venous system. 16.1 x 3.6 x 7.8 cm complex fluid collection within the subcutaneous soft tissues of the superolateral lower leg. This favors a subcutaneous hematoma. This contains septations and internal echoes. No associated vascular flow. IMPRESSION: No DVT within the right lower extremity. A 16.1 x 3.6 x 7.8 cm subcutaneous complex fluid collection within the superolateral lower leg. This favors a subcutaneous hematoma. ACT 112: Negative or not required by law. Electronically signed by: Sergio Meredith M.D. 06/24/2020 2:51 PM Dictated: 06/24/20 144 Transcribed: 06/24/201448 CT SCAN OF THE RIGHT TIBIA AND FIBULA WITH IV CONTRAST CLINICAL HISTORY: Right lower extremity swelling and erythema. COMPARISON STUDY: Radiograph centered right tibia and fibula and right lower extremity venous ultrasound dated 06/14/2020. TECHNIQUE: Following the IV administration of 89 cc of Optiray 320, CT scan of the right tibia and fibula is performed from the knee to the ankle. Images are reviewed in the axial, sagittal, and coronal planes. IV contrast was administered without complication. A dose lowering technique was utilized adhering to the principles of ALARA. CT DOSE: 483.46 mGy.cm FINDINGS: The skeletal structures are osteopenic. There is no evidence of tibial or fibular fracture. No bony erosion is identified. Minimal benign appearing periostitis is noted along the distal fibular shaft, likely due to chronic stasis. The knee and ankle joints are grossly maintained. There are large dorsal and plantar calcaneal enthesophytes. Degenerative change is noted in the knee joint with mild lateral subluxation of the patella. There is a small knee joint effusion. There is diffuse superficial and deep soft tissue edema identified throughout the right lower extremity with overlying dermal thickening. There is a hyperdense fluid collection identified in the anterolateral soft tissues of the upper calf best seen on axial image #141. This measures approximately 11 x 9 x 3.5 cm and is typical in appearance for a hematoma. No additional organized fluid collection is identified. There is generalized atrophy of the regional musculature. No soft tissue gas is seen. Numerous calcified phleboliths are observed. IMPRESSION: 1. No acute bony abnormality is identified involving the right tibia or fibula. 2. There is an 11 cm hyperdense fluid collection identified in the anterolateral soft tissues of the upper calf. The appearance is typical for a hematoma. Clinical correlation will be required and clinical follow-up to resolution is recommended. 3. Diffuse superficial and deep soft tissue edema is present throughout the right lower extremity. This could be related to volume status/fluid overload or could be seen with cellulitis. Again, clinical correlation will be required. ACT 112: Negative or not required by law. Electronically signed by: David Birmingham M.D. 06/23/2020 7:38 PM Dictated: 06/23/201929 Transcribed: 06/23/201929 Hospital Course (1) Cellulitis of leg, right: Present on admission with Right LE pain, redness and swelling CT showed 11 cm hyperdense fluid collection identified in the anterolateral soft tissues of the upper calf. Diffuse superficial and deep soft tissue edema is present throughout the right lower extremity. Doppler of LE showed No DVT within the right lower extremity. A 16.1 x 3.6 x 7.8 cm subcutaneous complex fluid collection within the superolateral lower leg. No evidence of sepsis On IV daptomycin-improved erythema/swelling noted on right lower extremity IV dapto changed to PO Keflex today ( pt was treated with PO Doxy in past with no improvement ) Clinically improved Right lower extremity hematoma S/P fall while on Coumadin [address] of rt extremity shows 11 cm hypodense fluid collection on the anterior lateral soft tissue of right upper cough, suggestive of hematoma Coumadin's was kept on hold, patient reports improvement of pain and swelling Orthopedics consulted, appreciate input, recommend conservative management with limb elevation cold compression No indication for any surgical procedure as per ortho Repeat RLE u/s showed no significant change in the subcutaneous hematoma of the anterolateral right lower leg, measuring approximately 15.5 x 3.3 x 7.2 cm, since ultrasound June 24, 2020. Hgb stable at 11.5 Continue Coumadin History of factor V Leiden mutation/hx of lower ext DVT Coumadin was on hold due to the RLE hematoma Pt was starting on heparin drip due to high risk for clot heparin drip discontinue since INR therapeutic INR 2.1 today Follow up with the [facility] Right lower extremity pain Due to fall and hematoma ambulatory dysfunction pain management on board recommended to continue percocet QID, gabapentin and duloxetine Ortho on board recommended to limit weightbearing and therapy on her right lower extremity until symptoms improve. Continue monitor for compartment syndrome fall precaution Plan to go to rehab today Pain improves Full code DVT prophylaxis : Coumadin Disposition : Discharge to [facility] today for rehab Continue PT/OT eval Total Time Total Time Spent Total Time Spent (In Minutes): 35 minutes Total Time Includes: Examination of the Patient, Discharge Planning, Medication Reconciliation, Communication With Other Providers and Other Discharge Plan Discharge Items Patient Disposition: Transfer Correction Fac Reason For Visit: RIGHT LEG PAIN Discharge Diagnosis: Cellulitis of leg, right Right lower extremity hematoma History of factor V Leiden mutation/hx of lower ext DVT Right lower extremity pain Activity: As commented below Non-emergency contact: Primary Care Provider Call non-emergency contact if: you have any medication questions Follow-up/Referrals: Krzysztof Pickering MD [Primary Care Provider] - 06/29/20 12:20 pm (Date & Time 06/29/2020 12:20 PM Provider Amy Esteban MD Department General Internal Medicine [facility] ) Diet: Carb Consistent or DM2 and Heart Healthy Addtl Attending Provider Instructions: Follow up with your primary care provider once discharge from [facility] Continue physical and occupational therapy Continue follow up with the coumadin clinic to monitor your PT/INR (INR 2.1 today ) Increase your activity gradually limit weightbearing and therapy on the right lower extremity until symptoms improve. Fall precaution Do not drive or operate any machine while on narcotic Please hold next dose of narcotic if your become lethargy/drowsy Check cbc in 1 week to monitor your hemoglobin Counseling on smoking cessation Pending Studies at Discharge: No Stand-Alone Forms: My [facility] [employer], Smoking Cessation Skilled Items Lines: None Urinary Catheter: No Medications and DC Order Prescriptions: New gabapentin 300 mg Capsule 300 mg PO TID 30 Days Qty: 90 RF: 3 bupropion HCl 150 mg Tablet Sustained-Release 12 Hr 300 mg PO QAM 30 Days Qty: 60 RF: 0 bupropion HCl 150 mg Tablet Sustained-Release 12 Hr 150 mg PO QDL 30 Days Qty: 30 RF: 0 cephalexin 500 mg Capsule 500 mg PO BID 3 Days Qty: 6 RF: 0 oxycodone-acetaminophen 10-325 mg tablet 1 tab PO QID PRN (Reason: Pain) Qty: 10 RF: 0 Continued calcium carbonate 600 mg calcium (1,500 mg) tablet 600 mg PO QAM RF: 0 warfarin 10 mg tablet See Rx Instructions .ROUTE .COMPLEX RF: 0 cyclobenzaprine 5 mg tablet 5 mg PO HS PRN (Reason: MUSCLE SPASMS) RF: 0 fluticasone propionate 50 mcg/actuation spray,suspension 2 sprays intranasal DAILY RF: 0 furosemide 20 mg tablet 20 mg PO QAM RF: 0 levothyroxine 88 mcg tablet 88 mcg PO DAILYBB RF: 0 omeprazole 20 mg tablet,delayed release (DR/EC) 40 mg PO QAM RF: 0 potassium gluconate 595 mg (99 mg) tablet 595 mg PO HS RF: 0 Vitron-C 65 mg iron- 125 mg tablet,delayed release (DR/EC) 1 tab PO TID RF: 0 zolpidem 5 mg tablet 5 mg PO HS PRN (Reason: Sleep) RF: 0 folic acid 1 mg Tablet 5 mg PO HS RF: 0 fexofenadine-pseudoephedrine [Ayde-D 12 Hour] 60-120 mg Tablet Extended Release 12 Hr 1 tab PO Q12H PRN (Reason: Congestion) RF: 0 duloxetine 60 mg Capsule,Delayed Release(Dr/Ec) 60 mg PO QAM RF: 0 Discontinued bupropion HCl 150 mg Tablet Sustained-Release 12 Hr See Rx Instructions .ROUTE .COMPLEX RF: 0 Discharge Orders: Discharge Order (Routine); Ordered 06/30/20 Ordered By: Rona Segura Admission Data Admit Date/Time: 06/24/20 10:34 Attending Provider: Rona Segura Admit Provider: Adam Giron Primary Care Provider: Krzysztof Pickering Other Providers: Adam Giron ; Pancho Rangel ; Mary Ellen Yu ; Kerry Couch. ; [place] ; [place] ; [facility] ; [facility] Other Interventions: Discharge Summary Assessment (RN) Last Done: 06/30/20 16:12
== END 2020-06-30 17:39 | DRG 603 ==
LOC: ED 17:29 → 2N 17:29 → SUATTDRO 06-24 10:34 → 3N 06-25 12:57

== ENCOUNTER 2021-04-09 09:09 | Inpatient (IN) ==
[2021-04-09] MEDS ORDERED: ACETAMINOPHEN 1,000 MG/100 ML VIAL IV STA (09:45)
[2021-04-09] MEDS ORDERED: SODIUM CHLORIDE 0.9% 1000ML 1,000 ML IV ONE (09:45)
--- NOTE | 2021-04-09 09:54 | Emergency Department Note ---
History of Present Illness General Chief complaint: Fever Stated complaint: BACK PAIN, CONFUSION Time Seen by Provider: 04/09/21 09:35 Source: patient and family (boyfriend) Mode of arrival: EMS Limitations: no limitations History of Present Illness This patient is a 51-year-old female who presents to the emergency department via EMS for evaluation of a fever. Her boyfriend reports that yesterday, she began complaining of hot and cold flashes. She complains of headache and chest pain, although did tell EMS that she had no pain at all. She reports she has not been eating or drinking, but denies any vomiting. She denies abdominal p ain, shortness of breath, cough, or urinary symptoms. She denies any recent sick contacts. She states she has not come in contact with anyone COVID-19 positive. She denies recent tick bites. She does have some redness of the right lower leg but states this is chronic. Home Medications Medication Instructions Recorded Confirmed Type calcium carbonate 600 mg calcium 600 mg PO TID tab 06/29/19 04/09/21 History (1,500 mg) tablet cyclobenzaprine 5 mg tablet 5 mg PO HS PRN tab 06/29/19 04/09/21 History fluticasone propionate 50 2 sprays INTRANASAL DAILY gm 06/29/19 04/09/21 History mcg/actuation nasal spray,suspension furosemide 20 mg tablet 20 mg PO QAM PRN tab 06/29/19 04/09/21 History iron,carbonyl 65 mg-vitamin C 125 1 tab PO BID tab 06/29/19 04/09/21 History mg tablet,delayed release levothyroxine 88 mcg tablet 88 mcg PO DAILYBB tab 06/29/19 04/09/21 History omeprazole 20 mg tablet,delayed 40 mg PO QAM tab 06/29/19 04/09/21 History release potassium gluconate 595 mg (99 mg) 595 mg PO HS PRN tab 06/29/19 04/09/21 History tablet warfarin 10 mg tablet See Rx Instructions .ROUTE 06/29/19 04/09/21 History .COMPLEX tab zolpidem 5 mg tablet 5 mg PO HS tab 06/29/19 04/09/21 History duloxetine 60 mg PO QAM 06/14/20 04/09/21 History fexofenadine-pseudoephedrine 1 tab PO Q12H PRN 06/14/20 04/09/21 History [Ayde-D 12 Hour] folic acid 5 mg PO HS 06/14/20 04/09/21 History bupropion HCl [Wellbutrin SR] See Rx Instructions .ROUTE .COMPLEX 04/09/21 04/09/21 History oxybutynin chloride [Ditropan XL] 5 mg PO DAILY 04/09/21 04/09/21 History oxycodone-acetaminophen 1 tab PO Q6H PRN 04/09/21 04/09/21 History Allergies Allergy/AdvReac Type Severity Reaction Status Date / Time latex Allergy Intermediate SKIN Verified 04/09/21 11:33 IRRITATION adhesive AdvReac Intermediate skin Verified 04/09/21 11:33 tearing NYLON STITCHES Allergy Mild erythema/pu Uncoded 04/09/21 11:33 s Past Med/Surg History Medical History (Updated 04/09/21 @ 16:55 by Katherine Rosen PA-C) Anticoagulated on warfarin Cellulitis of leg, right Chronic back pain DVT (deep venous thrombosis) Factor V deficiency GERD (gastroesophageal reflux disease) Hematoma of right lower leg Kidney stone on left side Morbid obesity Narcotic dependence Thrombophlebitis of right saphenous vein Surgical History History of gastric bypass Social History Smoking Status: Never smoker Preferred Language: Nepalese Communication Ability: Impaired Tick Inspector Required: No Beliefs That Will Affect Care: None marital status: Single Current Living Situation: Spouse Current Living Situation Comment: boyfriend Feels Safe at Home: Declines to Answer Assistive Devices: Cane, CPAP and Walker Review of Systems A total of 10 systems reviewed and were otherwise negative Physical Exam Vital Signs Vital Signs - 24 hr 04/09/21 09:19 04/09/21 10:50 04/09/21 12:29 Temperature 36.9 C 38.3 C H 37.3 C Temperature Source Oral Oral Oral Pulse Rate 84 Pulse Rate [Finger] 84 83 78 Pulse Rhythm [Finger] Regular Regular Pulse Strength [Finger] Normal Normal Respiratory Rate 19 18 18 Respiratory Effort / Characteristics Non-Labored Spontaneous Non-Labored Spontaneous Respiratory Depth Normal Normal Respiratory Pattern Regular Blood Pressure 130/77 Blood Pressure [Left Arm] 96/53 L 143/73 H Blood Pressure Mean 94 Blood Pressure Mean [Left Arm] 67 96 Blood Pressure Position [Left Arm] Lying Sitting Pulse Oximetry 96 96 97 Oxygen Delivery Method Room Air Room Air Room Air Sepsis Recent Fever Within 48 Hours Yes Sepsis New/Unexplained Change in Mental Status Yes Sepsis Action Taken by Nursing No Action Required VITALS: Vitals are noted on the nurse's note and reviewed by myself. GENERAL: This is a 51-year-old obese female, lying back in bed with her eyes closed. SKIN: There is an ulceration to the right lower anterolateral leg with surrounding erythema and warmth. HEAD: Normocephalic atraumatic. EARS: External auditory canals clear, tympanic membranes pearly mccarthy without erythema or effusion bilaterally. EYES: Pupils equal round and reactive to light and accommodation. Conjunctivae without injection. NOSE: Patent, turbinates without inflammation or discharge. MOUTH: Mucous membranes moist. Tonsils are not enlarged. Pharynx without erythema or exudate. NECK: Supple without nuchal rigidity. No lymphadenopathy. No meningismus. HEART: Regular rate and rhythm without murmurs gallops or rubs. LUNGS: Clear to auscultation bilaterally without wheezes, rales or rhonchi. No retractions or accessory muscle use. ABDOMEN: Positive bowel sounds x 4.. Soft, nontender to palpation. No guarding or rebound tenderness. NEURO: Patient was alert and oriented to person place and time. Course Consultations Consultation #1[facility]ations Sodium Chloride (Nss 1000ml) 1,000 mls @ 125 mls/hr IV .Q8H MICHELLE Stop: 04/09/21 23:59 Last Admin: 04/09/21 15:53 Dose: 125 mls/hr Documented by: [id number] Discontinued Medications Sodium Chloride (Nss 1000ml) 1,000 mls @ 999 mls/hr IV .Q1H1M ONE Stop: 04/09/21 10:45 Last Infusion: 04/09/21 12:26 Dose: 0 mls/hr Documented by: [id number] Admin: 04/09/21 10:47 Dose: 999 mls/hr Documented by: [id number] Acetaminophen (Ofirmev) 1,000 mg in 100 mls @ 400 mls/hr IV NOW STA Stop: 04/09/21 09:59 Last Infusion: 04/09/21 11:53 Dose: 0 mls/hr Documented by: [id number] Admin: 04/09/21 10:47 Dose: 400 mls/hr Documented by: [id number] Piperacillin Sod/Tazobactam Sod (Zosyn) 4.5 gm in 120 mls @ 240 mls/hr IV NOW ONE Stop: 04/09/21 12:32 Last Infusion: 04/09/21 13:02 Dose: 0 mls/hr Documented by: [id number] Admin: 04/09/21 12:25 Dose: 240 mls/hr Documented by: [id number] Potassium Chloride (Potassium Chloride Crtab 20 Meq Tabcr) 40 meq PO NOW STA Stop: 04/09/21 13:00 Last Admin: 04/09/21 13:34 Dose: 40 meq Documented by: [id number] Medical Decision Making Differential Diagnosis Viral syndrome, otitis, pharyngitis, pneumonia, influenza, meningitis, urinary tract infection, sepsis, bacteremia, as well as other pathologies. Home Medications Current Medication List: was personally reviewed by me Laboratory Data Attestation: I reviewed the patient's lab results. Result diagrams: 04/09/21 10:43 04/09/21 10:43 Lab Results 04/09/21 04/09/21 04/09/21 Range/Units 10:43 10:43 10:43 WBC 16.63 H (4.8-10.8) K/uL RBC 4.11 L (4.2-5.4) M/uL Hgb 13.2 (12.0-16.0) g/dL Hct 39.0 (37-47) % MCV 94.9 (80-100) fL MCH 32.1 (25-34) pg MCHC 33.8 (32-36) g/dL RDW Std Deviation 47.3 H (36.4-46.3) fL RDW Coeff of Deandre 13.6 (11.5-14.5) % Plt Count 172 (130-400) K/uL MPV 9.7 (7.4-10.4) fL Immature Gran % (Auto) 0.6 % Neut % (Auto) 84.5 % Lymph % (Auto) 5.2 % [place] % (Auto) 9.6 % Eos % (Auto) 0.0 % Baso % (Auto) 0.1 % Neut # (Auto) 14.06 H (1.4-6.5) K/uL Lymph # (Auto) 0.86 L (1.2-3.4) K/uL [place] # (Auto) 1.60 H (0.11-0.59) K/uL Eos # (Auto) 0.00 (0-0.5) K/uL Baso # (Auto) 0.01 (0-0.2) K/uL Immature Gran # (Auto) 0.10 H (0.00-0.02) K/uL PT (9.0-12.0) Seconds INR (0.9-1.1) APTT (21.0-31.0) Seconds PTT Ratio Sodium 138 (136-145) mmol/L Potassium 3.2 L (3.5-5.1) mmol/L Chloride 107 (98-107) mmol/L Carbon Dioxide 27 (21-32) mmol/L Anion Gap 4.0 (3-11) BUN 13 (7-18) mg/dl Creatinine 0.77 (0.6-1.2) mg/dl Est Cr Clr Drug Dosing 152.5 ml/min Est GFR ( Amer) 102.2 ml/min Est GFR (Non-Af Amer) 88.2 ml/min BUN/Creatinine Ratio 17.2 (10-20) Glucose 92 (70-99) mg/dl Lactate 0.9 (0.4-2.0) mmol/L Calcium 8.5 (8.5-10.1) mg/dl Total Bilirubin 0.9 (0.2-1) mg/dl AST 18 (15-37) U/L ALT 19 (12-78) U/L Alkaline Phosphatase 68 (45-117) U/L Troponin I < 0.015 (0-0.045) ng/ml Total Protein 6.7 (6.4-8.2) gm/dl Albumin 2.8 L (3.4-5.0) gm/dl Globulin 3.9 (2.5-4.0) gm/dl Albumin/Globulin Ratio 0.7 L (0.9-2) Procalcitonin (0-0.5) ng/ml TSH (0.300-4.500) uIu/ml COVID-19 Eval Order SARS-CoV-2 (PCR) (Negative) 04/09/21 04/09/21 04/09/21 Range/Units 10:43 10:43 10:43 WBC (4.8-10.8) K/uL RBC (4.2-5.4) M/uL Hgb (12.0-16.0) g/dL Hct (37-47) % MCV (80-100) fL MCH (25-34) pg MCHC (32-36) g/dL RDW Std Deviation (36.4-46.3) fL RDW Coeff of Deandre (11.5-14.5) % Plt Count (130-400) K/uL MPV (7.4-10.4) fL Immature Gran % (Auto) % Neut % (Auto) % Lymph % (Auto) % [place] % (Auto) % Eos % (Auto) % Baso % (Auto) % Neut # (Auto) (1.4-6.5) K/uL Lymph # (Auto) (1.2-3.4) K/uL [place] # (Auto) (0.11-0.59) K/uL Eos # (Auto) (0-0.5) K/uL Baso # (Auto) (0-0.2) K/uL Immature Gran # (Auto) (0.00-0.02) K/uL PT 25.7 H (9.0-12.0) Seconds INR 2.7 H (0.9-1.1) APTT 44.1 H (21.0-31.0) Seconds PTT Ratio 1.7 Sodium (136-145) mmol/L Potassium (3.5-5.1) mmol/L Chloride (98-107) mmol/L Carbon Dioxide (21-32) mmol/L Anion Gap (3-11) BUN (7-18) mg/dl Creatinine (0.6-1.2) mg/dl Est Cr Clr Drug Dosing ml/min Est GFR ( Amer) ml/min Est GFR (Non-Af Amer) ml/min BUN/Creatinine Ratio (10-20) Glucose (70-99) mg/dl Lactate (0.4-2.0) mmol/L Calcium (8.5-10.1) mg/dl Total Bilirubin (0.2-1) mg/dl AST (15-37) U/L ALT (12-78) U/L Alkaline Phosphatase (45-117) U/L Troponin I (0-0.045) ng/ml Total Protein (6.4-8.2) gm/dl Albumin (3.4-5.0) gm/dl Globulin (2.5-4.0) gm/dl Albumin/Globulin Ratio (0.9-2) Procalcitonin 2.93 H (0-0.5) ng/ml TSH 1.130 (0.300-4.500) uIu/ml COVID-19 Eval Order SARS-CoV-2 (PCR) (Negative) 04/09/21 04/09/21 Range/Units 11:27 11:27 WBC (4.8-10.8) K/uL RBC (4.2-5.4) M/uL Hgb (12.0-16.0) g/dL Hct (37-47) % MCV (80-100) fL MCH (25-34) pg MCHC (32-36) g/dL RDW Std Deviation (36.4-46.3) fL RDW Coeff of Deandre (11.5-14.5) % Plt Count (130-400) K/uL MPV (7.4-10.4) fL Immature Gran % (Auto) % Neut % (Auto) % Lymph % (Auto) % [place] % (Auto) % Eos % (Auto) % Baso % (Auto) % Neut # (Auto) (1.4-6.5) K/uL Lymph # (Auto) (1.2-3.4) K/uL [place] # (Auto) (0.11-0.59) K/uL Eos # (Auto) (0-0.5) K/uL Baso # (Auto) (0-0.2) K/uL Immature Gran # (Auto) (0.00-0.02) K/uL PT (9.0-12.0) Seconds INR (0.9-1.1) APTT (21.0-31.0) Seconds PTT Ratio Sodium (136-145) mmol/L Potassium (3.5-5.1) mmol/L Chloride (98-107) mmol/L Carbon Dioxide (21-32) mmol/L Anion Gap (3-11) BUN (7-18) mg/dl Creatinine (0.6-1.2) mg/dl Est Cr Clr Drug Dosing ml/min Est GFR ( Amer) ml/min Est GFR (Non-Af Amer) ml/min BUN/Creatinine Ratio (10-20) Glucose (70-99) mg/dl Lactate (0.4-2.0) mmol/L Calcium (8.5-10.1) mg/dl Total Bilirubin (0.2-1) mg/dl AST (15-37) U/L ALT (12-78) U/L Alkaline Phosphatase (45-117) U/L Troponin I (0-0.045) ng/ml Total Protein (6.4-8.2) gm/dl Albumin (3.4-5.0) gm/dl Globulin (2.5-4.0) gm/dl Albumin/Globulin Ratio (0.9-2) Procalcitonin (0-0.5) ng/ml TSH (0.300-4.500) uIu/ml COVID-19 Eval Order Covid19 at [facility] SARS-CoV-2 (PCR) NEGATIVE (Negative) Imaging Data Attestation: I personally reviewed and interpreted this imaging study as follows: Radiologist's Impression: Chest X-Ray 04/09/21 09:45 XR chest 1V portable CLINICAL HISTORY: Fever COMPARISON STUDY: No previous studies for comparison. FINDINGS: No pneumothorax. No pleural effusion. Study is slightly limited due to respiratory motion artifact. Linear densities are seen within left retrocardiac region with possible air bronchograms and might represent atelectasis or infiltrate. Also there is diffuse reticular prominence of pulmonary interstitium and few linear densities at peripheral aspect of the right and left lung. Cardiomediastinal silhouette is slightly enlarged. Prominent azygos vein and enlargement of bilateral colton. Aorta is tortuous. There is pulmonary vascular congestion and peribronchial cuffing are seen.. Osseous structures: Possibly degenerative changes of the spine however vertebral bodies are poorly seen due to motion artifact and patient's body habitus. IMPRESSION: 1. CHF pattern, possibly pulmonary edema. Enlarged azygous and bilateral colton. 2. Opacity at the left retrocardiac region might represent atelectasis or infiltrate. ACT 112: Negative or not required by law. The above report was generated using voice recognition software. It may contain grammatical, syntax or spelling errors. 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 Patient was placed on the residential sales rep. Patient was noted to be in normal sinus rhythm at an initial rate of 84 bpm. The patient is a 51-year-old female who presents today complaining of fevers and weakness. Patient initially stated to EMS that she was not having any pain, but later complained of headaches, chest pain and then "pain all over." Patient did arrive febrile and blood pressure was borderline low. Labs revealed a leukocytosis and elevation of her procalcitonin. Patient does appear to have a right lower extremity cellulitis, additionally has a possible infiltrate on chest x-ray. Patient was treated with Zosyn empirically and [facility]. She was given 1 L of normal saline on arrival, further fluids were held due to some findings suggestive of pulmonary edema on chest x-ray. Impression & Plan SIRS (systemic inflammatory response syndrome), Fever, Cellulitis of leg, righ t, Pneumonia Discharge Plan Visit Data Chief Complaint: Fever Stated Complaint: BACK PAIN, CONFUSION ED Provider: Stewart Schulz ED Midlevel Provider: Katherine Rosen Discharge Problem: SIRS (systemic inflammatory response syndrome), Fever, Cellulitis of leg, right, Pneumonia Patient Disposition: Admitted As Inpatient Discharge Instructions Interventions: ED Discharge Assessment Last Done: 04/09/21 13:30
[2021-04-09 10:55] LABS: Basophils # (auto) 0.01 K/uL (0-0.2); Basophils % (auto) 0.1 %; Hemoglobin 13.2 g/dL (12.0-16.0); Immature Granulocytes % (auto) 0.6 %; Lymphocytes # (auto) 0.86 K/uL (1.2-3.4); Lymphocytes % (auto) 5.2 %; Mean Corpuscular Hemoglobin 32.1 pg (25-34); Mean Corpuscular Hgb Conc 33.8 g/dL (32-36); Mean Corpuscular Volume 94.9 fL (80-100); Mean Platelet Volume 9.7 fL (7.4-10.4); Monocytes % (auto) 9.6 %; Neutrophils # (auto) 14.06 K/uL (1.4-6.5); Neutrophils % (auto) 84.5 %; Platelet Count 172 K/uL (130-400); RDW Coefficient of Variation 13.6 % (11.5-14.5); RDW Standard Deviation 47.3 fL (36.4-46.3); Red Blood Count 4.11 M/uL (4.2-5.4); White Blood Count 16.63 K/uL (4.8-10.8)
[2021-04-09 11:09] LABS: INR 2.7 (0.9-1.1); Partial Thromboplastin Ratio 1.7; Partial Thromboplastin Time 44.1 Seconds (21.0-31.0); Prothrombin Time 25.7 Seconds (9.0-12.0)
--- NOTE | 2021-04-09 11:09 | XRay Report ---
XR chest 1V portable CLINICAL HISTORY: Fever COMPARISON STUDY: No previous studies for comparison. FINDINGS: No pneumothorax. No pleural effusion. Study is slightly limited due to respiratory motion artifact. Linear densities are seen within left retrocardiac region with possible air bronchograms and might re present atelectasis or infiltrate. Also there is diffuse reticular prominence of pulmonary interstiti um and few linear densities at peripheral aspect of the right and left lung. Cardiomediastinal silhouette is slightly enlarged. Prominent azygos vein and enlargement of bilateral colton. Aorta is tortuous. There is pulmonary vascular congestion and peribronchial cuffing are seen.. Osseous structures: Possibly degenerative changes of the spine however vertebral bodies are poorly s een due to motion artifact and patient's body habitus. IMPRESSION: 1. CHF pattern, possibly pulmonary edema. Enlarged azygous and bilateral colton. 2. Opacity at the left retrocardiac region might represent atelectasis or infiltrate. ACT 112: Negative or not required by law. The above report was generated using voice recognition software. It may contain grammatical, syntax o r spelling errors. Electronically signed by: Rosemary Navarrete DO 04/09/2021 11:08 AM
[2021-04-09 11:13] LABS: Alanine Aminotransferase 19 U/L (12-78); Albumin Level 2.8 gm/dl (3.4-5.0); Aspartate Aminotransferase 18 U/L (15-37); BUN Creatinine Ratio 17.2 (10-20); Blood Urea Nitrogen 13 mg/dl (7-18); Calcium 8.5 mg/dl (8.5-10.1); Carbon Dioxide 27 mmol/L (21-32); Chloride 107 mmol/L (98-107); Creatinine Clr Calc Pharmacy 152.5 ml/min; Est GFR (African American) 102.2 ml/min; Est GFR (Non-African American) 88.2 ml/min; Glucose 92 mg/dl (70-99); Potassium 3.2 mmol/L (3.5-5.1); Sodium 138 mmol/L (136-145)
[2021-04-09 11:18] LABS: Albumin Globulin Ratio 0.7 (0.9-2); Alkaline Phosphatase 68 U/L (45-117); Bilirubin,Total 0.9 mg/dl (0.2-1); Globulin 3.9 gm/dl (2.5-4.0); Total Protein 6.7 gm/dl (6.4-8.2); Troponin I < 0.015 ng/ml (0-0.045)
[2021-04-09] MEDS ORDERED: PIPERACILL/TAZOBAC CONSULT ACTIVE PRN ×2 (12:03→15:14)
[2021-04-09] MEDS ORDERED: PIPERACILLIN/TAZOBACTAM 4.5 GM/120 ML BAG IV ONE (12:03)
--- NOTE | 2021-04-09 12:22 | History & Physical Report ---
Date of Service April 09, 2021 Assessment & Plan (1) Acute encephalopathy: (2) Fever: - Admit to tele - Checking CT head stat as to confusion with inability to answer orientation questions, difficulty with recall and chronological timeline of events - CT read is NEG. - IV zosyn given in the ER, continue -Lactic acid is negative, elevated pro-Ramon, WBC equals 16 K -CXR is revealing for a left lower lobe infiltrate which is concerning for pneumonia versus CHF, patient does not appear to be volume overloaded although she is significantly obese with a BMI of 70.1. -Right lower extremity has a small open blister without bright red erythema, no edema, appears to have chronic venous stasis changes, however IV antibiotics will cover for possible infection -Follow blood cultures x2 -Initially blood pressure was in the 90s/50s, currently 143/73 -Hold narcotics, ambien, flexeril due to worsening confusion -PDMP reviewed: appears she was written new Rx from PCP for Ambien on 04/04/21 which hadn't been refilled since October - maybe restarted taking this medication over the weekend and is adding to increased confusion? 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 (7) Morbid obesity: BMI of 70.1, diet and exercise to be encouraged, will allow heart healthy diet (8) Hypokalemia: -Potassium of 3.2 on admission, replace with 40 mEq orally, follow with BMP -Has lasix for lower extremity edema, has been taking it recently, denies edema currently. Does not weigh herself daily. Denies history of high blood pressure. (9) MDD (major depressive disorder): -Continue Wellbutrin and Cymbalta (10) Hypothyroidism: - Patient is unaware if she has truly been taking levothyroxine-will order 88 mcg daily for now - Check TSH with reflex free T4 (11) GERD (gastroesophageal reflux disease): -Continue omeprazole DVT PPx: - jeff, scds CODE: Full code Dispo: From home, likely to remain in the hospital x 1-2 days History of Present Illness Primary Care Provider: Krzysztof Pickering MD This is a 51 yo M with PMHx of morbid obesity with BMI of 70.1, chronic back pain, HTN, depression, chronic RLE wound, hypothyroidism, hyperparathyroidism, Facotr V Leiden with hx of DVT on coumadin who presents with fever to the ER. She has a friend with her at bedside who reports that she has not been feeling well since Thursday evening. Her friend reports that she did not come to babysit her child yesterday and that did not drive her boyfriend who lives with her to work earlier today because she did not feel well, which is very unlike her. The patient seems somewhat confused and is having difficulty answering specific orientation questions. She knows she is in a hospital but cannot name it, answers the year and date incorrectly. At times she is able to recall that she took her medications but does not recognize medication like levothyroxine and thinks she stopped stopped taking this several days ago. She reports that she feels cold, no sweats. She reports that she had a small blister on her right lower extremity pop a few days ago and that there is some erythema around the area where previously had an old chronic leg wound. She does not feel that it is more swollen than her baseline. It is not painful. Patient ambulated w ithout any difficulty earlier today. But does not endorse any other positive review of systems. In the ER the patient is found to have a temperature of 38.3, WBC of 16 K, negative lactic acid, elevated pro-Ramon, CXR showing possible left lower lobe infiltrate versus edema. With her increased confusion will check a CT of the head stat. Allergies Allergy/AdvReac Type Severity Reaction Status Date / Time latex Allergy Intermediate SKIN Verified 04/09/21 11:33 IRRITATION adhesive AdvReac Intermediate skin Verified 04/09/21 11:33 tearing NYLON STITCHES Allergy Mild erythema/pu Uncoded 04/09/21 11:33 s Home Medications Medication Instructions Recorded Confirmed Type calcium carbonate 600 mg calcium 600 mg PO TID tab 06/29/19 04/09/21 History (1,500 mg) tablet cyclobenzaprine 5 mg tablet 5 mg PO HS PRN tab 06/29/19 04/09/21 History fluticasone propionate 50 2 sprays INTRANASAL DAILY gm 06/29/19 04/09/21 History mcg/actuation nasal spray,suspension furosemide 20 mg tablet 20 mg PO QAM PRN tab 06/29/19 04/09/21 History iron,carbonyl 65 mg-vitamin C 125 1 tab PO BID tab 06/29/19 04/09/21 History mg tablet,delayed release (Vitron-C) levothyroxine 88 mcg tablet 88 mcg PO DAILYBB tab 06/29/19 04/09/21 History omeprazole 20 mg tablet,delayed 40 mg PO QAM tab 06/29/19 04/09/21 History release potassium gluconate 595 mg (99 mg) 595 mg PO HS PRN tab 06/29/19 04/09/21 History tablet warfarin 10 mg tablet See Rx Instructions .ROUTE 06/29/19 04/09/21 History .COMPLEX tab zolpidem 5 mg tablet (Ambien) 5 mg PO HS tab 06/29/19 04/09/21 History duloxetine 60 mg capsule,delayed 60 mg PO QAM 06/14/20 04/09/21 History release fexofenadine 60 mg-pseudoephedrine 1 tab PO Q12H PRN 06/14/20 04/09/21 History ER 120 mg tablet,ext.release,12 hr (Ayde-D 12 Hour) folic acid 1 mg tablet 5 mg PO HS 06/14/20 04/09/21 History bupropion HCl 150 mg tablet,12 hr See Rx Instructions .ROUTE .COMPLEX 04/09/21 04/09/21 History sustained-release (Wellbutrin SR) oxybutynin chloride 5 mg 5 mg PO DAILY 04/09/21 04/09/21 History tablet,extended release 24 hr (Ditropan XL) oxycodone-acetaminophen 10 mg-325 1 tab PO Q6H PRN 04/09/21 04/09/21 History mg tablet Past Med/Surg History Medical History Anticoagulated on warfarin Cellulitis of leg, right Chronic back pain DVT (deep venous thrombosis) Factor V deficiency GERD (gastroesophageal reflux disease) Hematoma of right lower leg Kidney stone on left side Morbid obesity Narcotic dependence Thrombophlebitis of right saphenous vein Surgical History History of gastric bypass Social History Smoking Status: Never smoker Preferred Language: Nepalese Communication Ability: Effective Bell Maker Required: No Beliefs That Will Affect Care: None marital status: Single Current Living Situation: Spouse Current Living Situation Comment: boyfriend Feels Safe at Home: Declines to Answer Assistive Devices: CPAP Review of Systems Review of Systems: Constitutional:+ fever, no sweats or chills Eyes: No diplopia, no worsening or blurred vision ENT: normal hearing, no trouble swallowing Respiratory: No cough, sputum, dyspnea at rest or on exertion Cardiovascular: No chest pain, tightness or palpitations Abdomen: No pain, nausea, vomiting, diarrhea or constipation, last BM yesterday. Musculoskeletal: No joint pain, calf pain, swelling Neurologic: No weakness, numbness/tingling, or balance problems Psychiatric: No anxiety or depression Skin: No rash or itch Physical Exam Physical Exam: General: awake, alert, no apparent distress,morbidly obese BMI of 70.1. Head: Normocephalic, atraumatic ENT: PERRL, EOMI, no pharyngeal exudate, mucous membranes moist, multiple missing teeth Chest: Clear to auscultation, except in left lower alejandre which are diminished. on room air with adequate o2 sats, no adventitious breath sounds Cardiac: Regular rate and rhythm, no murmur, no JVD, normal peripheral pulses, good capillary refill Abdominal: NABS x 4 quadrants, soft, nondistended, nontender to palpation, no rebound or guarding Extremities: RLE with chronic venous stasis changes, dull erythema, minor warmth, small open blister healing. Normal inspection, no peripheral edema or erythema, calfs nontender to palpation Psych: Normal mood and affect Neuro: Awake , alert, unable to answer orientation questions including place, president, date, year. Strength intact bilaterally and rated 5/5, no motor deficits, speech is clear, no peripheral sensory deficits Results & Data Results & Data ([facility]) Vital Signs (Past 12 Hours) Vital Signs Temp Pulse Pulse Resp BP BP Pulse Ox 04/09/21 10:50 38.3 C H 83 18 96/53 L 96 04/09/21 09:19 36.9 C 84 84 19 130/77 96 Diagnostic Findings Chest X-Ray 04/09/21 09:45 XR chest 1V portable CLINICAL HISTORY: Fever COMPARISON STUDY: No previous studies for comparison. FINDINGS: No pneumothorax. No pleural effusion. Study is slightly limited due to respiratory motion artifact. Linear densities are seen within left retrocardiac region with possible air bronchograms and might represent atelectasis or infiltrate. Also there is diffuse reticular prominence of pulmonary interstitium and few linear densities at peripheral aspect of the right and left lung. Cardiomediastinal silhouette is slightly enlarged. Prominent azygos vein and enlargement of bilateral colton. Aorta is tortuous. There is pulmonary vascular congestion and peribronchial cuffing are seen.. Osseous structures: Possibly degenerative changes of the spine however vertebral bodies are poorly seen due to motion artifact and patient's body habitus. IMPRESSION: 1. CHF pattern, possibly pulmonary edema. Enlarged azygous and bilateral colton. 2. Opacity at the left retrocardiac region might represent atelectasis or infiltrate. ACT 112: Negative or not required by law. The above report was generated using voice recognition software. It may contain grammatical, syntax or spelling errors. Electronically signed by: Rosemary Navarrete DO 04/09/2021 11:08 AM ECG Additional Comments: 09-APR-2021 10:01:11 [facility]-EDSTAT ROUTINE RETRIEVAL Normal sinus rhythm Low voltage QRS Borderline ECG When compared with ECG of 02-AUG-2018 18:39, Premature atrial complexes are no longer Present Vent. rate has increased BY 31 BPM 25mm/s 10mm/mV 150Hz 9.0.9 12SL 241 FELIPA: 10 Referred by: REFERRED SELF Unconfirmed Vent. rate 80 BPM ME interval 192 ms QRS duration 108 ms QT/QTc 352/405 ms Code Status & VTE Plan Code Status Full code- discussed with pt at bedside Supervising Physician Co-Signing Physician Notes Pt was seen and examined. Agreed with Lynda GEORGE exam, assessment and plan. 51 yo M with PMHx of morbid obesity with BMI of 70.1, chronic back pain, HTN, depression, chronic RLE wound, hypothyroidism, hyperparathyroidism, Factor V Leiden with hx of DVT on coumadin who presents with fever to the ER. Most of the history obtained from friend at bedside since pt is not a good historian and feeling sleepy. As per friend, pt has not been herself. She she did not come to babysitting her kid yesterday and she was not able to drive herself or boyfriend today around because she feels sick. Friend said that she looks confused. She said that she feels cold and chills. She reports that she had a small blister on her right lower extremity pop a few days ago and that there is some erythema around the area where previously had an old chronic leg wound. Denies any chest pain, palpitation, dysuria and SOB. in the ER CT head showed no acute intracran ial abnormality. Elevated WBC 16K and procalcitonin on admission. CXR showed left lower lobe infiltrate which is concerning for pneumonia versus CHF. Received IV Zosyn in the ER, will continue for now. Blood cx collected in the ER, will follow. Due to the confusion, will hold her narcotic and avoid any [employer] REPRESENTATIVE meds. Fall precaution. Continue monitor closely. MD Imelda
[2021-04-09] MEDS ORDERED: POTASSIUM CHLORIDE CRTAB 20 MEQ TABCR PO STA (12:59)
--- NOTE | 2021-04-09 13:30 | CT Scan Report ---
HEAD CT NONCONTRAST CT DOSE: 972.49 mGy.cm HISTORY: Altered mental status. TECHNIQUE: Multiaxial CT images of the head were performed without the use of intravenous contrast. A utomated exposure control was utilized for this study. A dose lowering technique was utilized adheri ng to the principles of ALARA. Comparison: None. Findings: Mild motion artifact. The paranasal sinuses and mastoid air cells are clear. The calvarium and skull base are intact. The ventricles and sulci are within normal limits. There is no mass, hemat cornelia, midline shift, or acute infarct. Impression: No acute intracranial abnormality. ACT 112: Negative or not required by law. Electronically signed by: Sergio Meredith M.D. 04/09/2021 1:29 PM
[2021-04-09] MEDS ORDERED: ONDANSETRON INJ 2 MG/ML 2 ML VIAL IV PRN (15:14)
[2021-04-09] MEDS ORDERED: SODIUM CHLORIDE 0.9% 1000ML 1,000 ML IV SCH (16:00)
[2021-04-09] MEDS: WARFARIN SOD 10 MG TAB PO SCH (17:14)
[2021-04-09] MEDS: PIPERACILLIN/TAZOBACTAM 4.5 GM in DEXTROSE 5% 100 ML IV SCH (18:20)
[2021-04-09 18:31] LABS: Appearance Urine Clear (Clear); Bacteria Urine Automated Negative (Negative); Blood Urine Negative (Negative); Color Urine Dark Yellow; Epithelial Cell Urine Auto >30 /lpf (0-5); Glucose Urine UA Negative (Negative); Ketones Urine 2+ (Negative); Leukocyte Esterase Urine Negative (Negative); Nitrite Urine Positive (Negative); Protein Urine Trace (Negative); RBC Urine Automated 0-4 /hpf (0-4); Specific Gravity Urine 1.038 (1.000-1.030); Urobilinogen Urine Negative (Negative); pH Urine 5.5 (4.5-7.5)
[2021-04-09 18:34] LABS: Bilirubin Urine 1+ (Negative)
[2021-04-09 19:18] LABS: Amphetamines+Metham, Urine Pos (Neg); Barbiturates, Urine Neg (Neg); Benzodiazepine, Urine Neg (Neg); Cocaine, Urine Neg (Neg); MDMA (Ecstacy), Urine Pos (Neg); Methadone, Urine Neg (Neg); Opiate, Urine Neg (Neg); Phencyclidine, Urine Neg (Neg)
[2021-04-09 19:35] LABS: Mucus Urine Present (None Prsent)
[2021-04-09 19:37] LABS: Cast Urine Automated 0 /lpf (0-5)
[2021-04-09] MEDS: ACETAMINOPHEN 325 MG TAB PO PRN (19:54)
[2021-04-09] MEDS: FOLIC ACID 1 MG TAB PO SCH (19:54)
[2021-04-10] MEDS: ACETAMINOPHEN 325 MG TAB PO PRN ×3 (01:41→20:43)
[2021-04-10] MEDS: PIPERACILLIN/TAZOBACTAM 4.5 GM in DEXTROSE 5% 100 ML IV SCH ×2 (01:41→10:07)
[2021-04-10] MEDS: LEVOTHYROXINE SODIUM 88 MCG TABLET PO SCH ×2 (05:36→08:00)
--- NOTE | 2021-04-10 06:07 | Electrocardiogram Report ---
Test Reason : Blood Pressure : / mmHG Vent. Rate : 080 BPM Atrial Rate : 080 BPM P-R Int : 192 ms QRS Dur : 108 ms QT Int : 352 ms P-R-T Axes : 059 014 055 degrees QTc Int : 405 ms Normal sinus rhythm Low voltage QRS Borderline ECG When compared with ECG of 02-AUG-2018 18:39, Premature atrial complexes are no longer Present Vent. rate has increased BY 31 BPM Confirmed by David Miramontes ([id number]) on 04/10/2021 6:07:02 AM Referred By: REFERRED SELF Confirmed By:David Miramontes
[2021-04-10 06:35] LABS: Hemoglobin 12.4 g/dL (12.0-16.0); Mean Corpuscular Hgb Conc 33.5 g/dL (32-36); Mean Corpuscular Volume 95.6 fL (80-100); Mean Platelet Volume 9.8 fL (7.4-10.4); Platelet Count 144 K/uL (130-400); RDW Coefficient of Variation 13.7 % (11.5-14.5); RDW Standard Deviation 47.6 fL (36.4-46.3); Red Blood Count 3.87 M/uL (4.2-5.4); White Blood Count 13.63 K/uL (4.8-10.8)
[2021-04-10 06:54] LABS: INR 3.1 (0.9-1.1); Prothrombin Time 28.4 Seconds (9.0-12.0)
[2021-04-10 07:11] LABS: Albumin Level 2.5 gm/dl (3.4-5.0); BUN Creatinine Ratio 21.2 (10-20); Calcium 8.3 mg/dl (8.5-10.1); Creatinine Clr Calc Pharmacy 213.5 ml/min; Est GFR (African American) 124.1 ml/min; Est GFR (Non-African American) 107.1 ml/min; Magnesium 1.9 mg/dl (1.8-2.4); Potassium 3.3 mmol/L (3.5-5.1)
[2021-04-10 07:15] LABS: Albumin Globulin Ratio 0.6 (0.9-2); Bilirubin,Total 0.6 mg/dl (0.2-1); Globulin 4.1 gm/dl (2.5-4.0); Phosphorus 2.1 mg/dl (2.5-4.9); Total Protein 6.6 gm/dl (6.4-8.2)
[2021-04-10 07:20] LABS: Estimated Average Glucose 108 mg/dl; Hemoglobin A1C 5.4 % (4.5-5.6)
[2021-04-10] MEDS: DULoxetine HCL 60 MG CAP PO SCH (07:58)
[2021-04-10] MEDS: OXYBUTYNIN CHLORIDE XL 5 MG TABCR PO SCH (07:58)
[2021-04-10] MEDS: buPROPion SR 150 MG TABCR PO SCH ×2 (07:59→12:53)
[2021-04-10] MEDS: PANTOprazole 40 MG TAB PO SCH (07:59)
--- NOTE | 2021-04-10 16:35 | Hospitalist Progress Note ---
Date of Service April 10, 2021 Assessment & Plan (1) Acute encephalopathy: Metabolic encephalopathy. resolved Pt presented with confusion. CT head negative. WBC 16.63, procal 2.93, temp 38.3 was hypotensive in ER vitals stable now , afebrile with stable BP metabolic encephalopathy due to possible sepsis ( pneumonia , L lower extremity cellulitis ) pt recovered, awake and alert and oriented today does not recall the events of being sick and coming to hospital (2) Fever: Sepsis : met SIRS criteria : elevated white count 16K , fever , elevated pro robert possible source Pneumonia / lower ext cellulitis pt reports of diarrhea and loose stool with IV Zosyn changed to IV rocephin and doxy no GI symptoms tolerating ABx well Cellulitis of right lower limb RLE tenderness, erythema and warmth. on Doxy and rocephin Acute on chronic diastolic CHF Patient appears to be volume overloaded with shortness of breath, abdominal distention, murmur heard on exam - was given lasix 40 mg IV in the ER patient takes Torsemide 100 mg BID daily continued Lasix continued BID dosing Last 2D echo on 05/04/2019-showed LV wall thickness mildly concentric, normal wall motion, LVEF 55 to 59%, diastolic function mildly abnormal, mild aortic valve sclerosis present - will repeat echo - BNP is not elevated currently - cardiology consult appreciated - Strict I/Os,daily weight COPD exacerbation : - Possible COPD exacerbation. Also note of chronic tobacco use x 50 years with possible underlying COPD however no formal PFTs to review. -VBG completed showing pH of 7.35, CO2 61, bicarb 32- encouraged wearing BiPAP tonight, patient noncompliance at home - likely chronically retains Co2. - - (3) SIRS (systemic inflammatory response syndrome): -resolved , afebrile , with resolution of confusion Fever, elevated WBC, possible source of pulmonary vs skin causing encephalopathy (4) Factor V deficiency: - on coumadin (5) DVT (deep venous thrombosis): on coumadin (6) Narcotic dependence: -Takes this for chronic back pain, PDMP reviewed as above -\oxycodone 10/325 on hold for sedation (7) Morbid obesity: BMI of 70.1, diet and exercise to be encouraged, will allow heart healthy diet (8) Hypokalemia: corrected (9) MDD (major depressive disorder): -Continue Wellbutrin and Cymbalta (10) Hypothyroidism: -ordered levothyroxine 88 mcg daily - (11) GERD (gastroesophageal reflux disease): -Continue omeprazole DVT PPx: - on coumadin CODE: Full code Dispo: PT/OT alfonso requested encourage to be OOB to chair Admission and Anticipated Discharge Date Admission Date: April 09, 2021 Subjective Follow-up visit for confusion/metabolic encephalopathy: awake and alert wants to go home today no confusion or disorientation no fever or chill , denies of any SOB or cough no complain of pain of discomfort on rt leg swelling and redness on right leg has improved Review of Systems Review of Systems: All systems reviewed & are unremarkable except as noted in Subjective Physical Exam Constitutional: WD/WN, vitals as above + morbidly obese Eyes: PERRL, conjunctivae normal, anicteric sclerae ENMT: external ear and nose normal, oropharynx normal Respiratory: no respiratory distress Auscultation: + diminished lung sounds, + crackles and + rales; no rhonchi and no wheezes Cardiovascular: Rate/Rhythm: regular rate and regular rhythm Bilateral lower extremity edema with chronic venous stasis change Gastrointestinal (Abdomen): Percussion/Palpation: abdomen soft; abdomen nontender Musculoskeletal: Lower extremity, erythema, redness below the knee, no open wound noted, Skin: + erythema (At right lower extremity,) Neurologic: PERRL, EOMI, accommodation nl, no face palsy, no dysarthria Psychiatric: A+Ox3, euthymic affect Results & Data Results & Data ([facility]) Vital Signs (Past 12 Hours) Vital Signs Temp Pulse Pulse Resp BP Pulse Ox 04/10/21 14:53 69 04/10/21 14:52 36.7 C 66 18 95/71 L 99 04/10/21 11:25 37.3 C 71 18 125/79 98 04/10/21 07:45 67 04/10/21 07:43 36.9 C 72 18 131/75 92
[2021-04-10] MEDS ORDERED: POTASSIUM CHLORIDE CRTAB 20 MEQ TABCR PO STA (16:36)
[2021-04-10] MEDS: cefTRIAXone SODIUM 2,000 MG in DEXTROSE 5% 50 ML IV SCH (17:20)
[2021-04-10] MEDS: WARFARIN SOD 5 MG TAB PO SCH (17:20)
[2021-04-10] MEDS: DOXYCYCLINE HYCLATE 100 MG CAP PO SCH (17:34)
[2021-04-10] MEDS: FOLIC ACID 1 MG TAB PO SCH (20:43)
[2021-04-11] MEDS ORDERED: oxyCODONE HCL IR 5 MG TAB (IMMEDIATE RELEASE) PO STA (00:15)
[2021-04-11 06:14] LABS: Hematocrit (blood only) 36.2 % (37-47); Mean Corpuscular Hemoglobin 31.7 pg (25-34); Mean Corpuscular Hgb Conc 33.1 g/dL (32-36); Mean Corpuscular Volume 95.5 fL (80-100); Mean Platelet Volume 10.1 fL (7.4-10.4); Platelet Count 168 K/uL (130-400); RDW Coefficient of Variation 13.7 % (11.5-14.5); RDW Standard Deviation 47.7 fL (36.4-46.3); Red Blood Count 3.79 M/uL (4.2-5.4)
[2021-04-11] MEDS: LEVOTHYROXINE SODIUM 88 MCG TABLET PO SCH (06:19)
[2021-04-11 06:22] LABS: INR 2.9 (0.9-1.1); Prothrombin Time 27.4 Seconds (9.0-12.0)
[2021-04-11 06:50] LABS: Albumin Level 2.3 gm/dl (3.4-5.0); Creatinine Clr Calc Pharmacy 213.8 ml/min; Est GFR (African American) 124.1 ml/min; Est GFR (Non-African American) 107.1 ml/min; Potassium 3.5 mmol/L (3.5-5.1)
[2021-04-11 06:52] LABS: Albumin Globulin Ratio 0.6 (0.9-2); Bilirubin,Total 0.5 mg/dl (0.2-1); Globulin 4.1 gm/dl (2.5-4.0); Total Protein 6.4 gm/dl (6.4-8.2)
[2021-04-11] MEDS: ACETAMINOPHEN 325 MG TAB PO PRN (08:04)
[2021-04-11] MEDS: PANTOprazole 40 MG TAB PO SCH (08:05)
[2021-04-11] MEDS: DULoxetine HCL 60 MG CAP PO SCH (08:05)
[2021-04-11] MEDS: OXYBUTYNIN CHLORIDE XL 5 MG TABCR PO SCH (08:05)
[2021-04-11] MEDS: buPROPion SR 150 MG TABCR PO SCH ×2 (08:05→11:40)
[2021-04-11] MEDS: DOXYCYCLINE HYCLATE 100 MG CAP PO SCH ×2 (08:06→20:55)
[2021-04-11] MEDS: ADVANCED PROBIOTIC 1250 MG CAPSULE PO SCH (08:06)
[2021-04-11] MEDS ORDERED: NON-FORMULARY MEDICATION (Potassium Gluconate 595 mg (99 mg) tablet) PO PRN (08:50)
[2021-04-11] MEDS ORDERED: CYCLOBENZAPRINE HCL 5 MG TAB PO PRN (08:50)
[2021-04-11] MEDS ORDERED: FUROSEMIDE 20 MG TAB PO PRN (08:50)
[2021-04-11] MEDS ORDERED: NON-FORMULARY MEDICATION (Iron,Carbonyl-Vitamin C [Vitron-C] 65 mg iron- 125 mg tablet,del PO SCH (09:00)
[2021-04-11] MEDS: oxyCODONE/ACETAMINOPHEN 10-325 TAB PO PRN (09:14)
[2021-04-11] MEDS: FLUTICASONE PROPIONATE NA SPR 16 GM BTL NAE SCH (09:15)
[2021-04-11] MEDS: ASCORBIC ACID 500 MG TAB PO SCH ×2 (11:40→21:30)
[2021-04-11] MEDS: FERROUS SULFATE 325 MG TAB PO SCH ×2 (11:40→21:30)
[2021-04-11] MEDS: CALCIUM CARBONATE 1250MG TAB PO SCH ×2 (14:48→21:30)
[2021-04-11] MEDS: WARFARIN SOD 10 MG TAB PO SCH (17:05)
[2021-04-11] MEDS: cefTRIAXone SODIUM 2,000 MG in DEXTROSE 5% 50 ML IV SCH (17:07)
[2021-04-11] MEDS: FOLIC ACID 1 MG TAB PO SCH (20:54)
[2021-04-12] MEDS: oxyCODONE/ACETAMINOPHEN 10-325 TAB PO PRN ×2 (04:57→16:52)
[2021-04-12] MEDS: LEVOTHYROXINE SODIUM 88 MCG TABLET PO SCH (04:58)
[2021-04-12 06:17] LABS: INR 3.3 (0.9-1.1); Prothrombin Time 30.3 Seconds (9.0-12.0)
[2021-04-12] MEDS: buPROPion SR 150 MG TABCR PO SCH ×2 (08:47→13:02)
[2021-04-12] MEDS: ADVANCED PROBIOTIC 1250 MG CAPSULE PO SCH (08:47)
[2021-04-12] MEDS: DOXYCYCLINE HYCLATE 100 MG CAP PO SCH ×2 (08:47→21:46)
[2021-04-12] MEDS: PANTOprazole 40 MG TAB PO SCH (08:48)
[2021-04-12] MEDS: OXYBUTYNIN CHLORIDE XL 5 MG TABCR PO SCH (08:48)
[2021-04-12] MEDS: DULoxetine HCL 60 MG CAP PO SCH (08:48)
[2021-04-12] MEDS: FLUTICASONE PROPIONATE NA SPR 16 GM BTL NAE SCH (08:50)
[2021-04-12 10:17] LABS: Amphetamine Urine, Confirm NEGATIVE ng/mL (<250); MDA negative; MDEA negative; MDMA (Ecstasy) Urine, Confirm negative; Methamphetamine, Ur Confirm NEGATIVE ng/mL (<250)
[2021-04-12] MEDS: ASCORBIC ACID 500 MG TAB PO SCH ×2 (11:13→21:45)
[2021-04-12] MEDS: CALCIUM CARBONATE 1250MG TAB PO SCH ×3 (11:14→21:44)
[2021-04-12] MEDS: FERROUS SULFATE 325 MG TAB PO SCH ×2 (11:14→21:45)
--- NOTE | 2021-04-12 13:13 | Hospitalist Progress Note ---
Date of Service April 12, 2021 Assessment & Plan (1) Acute encephalopathy: Metabolic encephalopathy. resolved Pt presented with confusion. CT head negative. WBC 16.63, procal 2.93, temp 38.3 was hypotensive in ER vitals stable now , afebrile with stable BP metabolic encephalopathy due to possible sepsis ( pneumonia , r lower extremity cellulitis ). Concern for possible CO2 retention given obstructive sleep apnea does not have some home CPAP machine Patient has been awake and alert oriented since admission, Sepsis has resolved, normal white count, On IV Rocephin and doxycycline for community-acquired pneumonia and right lower extremity cellulitis No cough or shortness of breath, Antibiotic will be changed to Augmentin for pneumonia, continue doxycycline for (2) Fever: Sepsis : met SIRS criteria : elevated white count 16K , fever , elevated pro robert possible source Pneumonia / lower ext cellulitis pt reports of diarrhea and loose stool with IV Zosyn changed to IV rocephin and doxy no GI symptoms tolerating ABx well page antibiotic to Augmentin and doxycycline Cellulitis of right lower limb RLE tenderness, erythema and warmth. on Doxy and rocephin We will change antibiotic to Augmentin and doxycycline Will need 10 days of p.o. doxycycline for leg cellulitis Acute on chronic diastolic CHF Patient appears to be volume overloaded with shortness of breath, abdominal distention, murmur heard on exam - was given lasix 40 mg IV in the ER patient takes Torsemide 100 mg BID daily continued Lasix continued BID dosing Last 2D echo on 05/04/2019-showed LV wall thickness mildly concentric, normal wall motion, LVEF 55 to 59%, diastolic function mildly abnormal, mild aortic valve sclerosis present - will repeat echo - BNP is not elevated currently - cardiology consult appreciated - Strict I/Os,daily weight COPD exacerbation : - Possible COPD exacerbation. Also note of chronic tobacco use x 50 years with possible underlying COPD however no form al PFTs to review. -VBG completed showing pH of 7.35, CO2 61, bicarb 32- encouraged wearing BiPAP tonight, patient noncompliance at home - likely chronically retains Co2. -Patient is diagnosed with obstructive sleep apnea, was ordered CPAP which she has not picked up yet, Patient's presentation on obtundation and confusion, CO2 retention possibly can be contributing - Nocturnal pulse oximetry shows significant desaturation, ordered for nighttime 2 L oxygen, patient is encouraged to pickling grader her CPAP machine and use it diligently Ordered for CPAP at bedtime (3) SIRS (systemic inflammatory response syndrome): -resolved , afebrile , with resolution of confusion (4) Factor V deficiency: - on coumadin (5) DVT (deep venous thrombosis): on coumadin (6) Narcotic dependence: -Takes this for chronic back pain, PDMP reviewed as above Her home pain medication resumed (7) Morbid obesity: BMI of 70.1, diet and exercise to be encouraged, will allow heart healthy diet (8) Hypokalemia: corrected (9) MDD (major depressive disorder): -Continue Wellbutrin and Cymbalta (10) Hypothyroidism: -ordered levothyroxine 88 mcg daily - (11) GERD (gastroesophageal reflux disease): -Continue omeprazole DVT PPx: - on coumadin CODE: Full code Dispo: PT/OT eval requested patient is independent in her activities Plan to discharge home tomorrow Admission and Anticipated Discharge Date Admission Date: April 09, 2021 Subjective Follow-up visit for confusion/metabolic encephalopathy: Patient remains awake and alert and oriented, no episode of confusion since admission, Conversing appropriately Had no fevers or chills, no cough or shortness of breath, remains in room air Right leg swelling, erythema continues to improve, still has increased warmth Patient denies of any pain or discomfort Patient was not on BiPAP at night, as nocturnal pulse oximetry was done, Nocturnal pulse oximetry shows significant desaturation, Review of Systems Review of Systems: All systems reviewed & are unremarkable except as noted in Subjective Physical Exam Constitutional: WD/WN, vitals as above + morbidly obese Eyes: PERRL, conjunctivae normal, anicteric sclerae ENMT: external ear and nose normal, oropharynx normal Respiratory: no respiratory distress Auscultation: + diminished lung sounds, + crackles and + rales; no rhonchi and no wheezes Cardiovascular: Rate/Rhythm: regular rate and regular rhythm Gastrointestinal (Abdomen): Percussion/Palpation: abdomen soft; abdomen nontender Skin: + erythema (At right lower extremity,) Neurologic: PERRL, EOMI, accommodation nl, no face palsy, no dysarthria Psychiatric: A+Ox3, euthymic affect Results & Data Results & Data ([facility]) Vital Signs (Past 12 Hours) Vital Signs Temp Pulse Pulse Pulse Resp BP Pulse Ox 04/12/21 12:03 37.5 C 70 16 132/77 99 04/12/21 08:57 84 04/12/21 07:46 37.1 C 77 16 102/72 94 04/12/21 04:05 85 04/12/21 03:16 37.0 C 83 18 108/56 L 97 Pulse Ox 04/12/21 12:03 04/12/21 08:57 04/12/21 07:46 04/12/21 04:05 95 04/12/21 03:16
[2021-04-12] MEDS: WARFARIN SOD 5 MG TAB PO SCH (16:09)
[2021-04-12] MEDS: cefTRIAXone SODIUM 2,000 MG in DEXTROSE 5% 50 ML IV SCH (18:14)
[2021-04-12] MEDS: FOLIC ACID 1 MG TAB PO SCH (21:47)
[2021-04-13] MEDS: LEVOTHYROXINE SODIUM 88 MCG TABLET PO SCH (06:20)
[2021-04-13] MEDS: oxyCODONE/ACETAMINOPHEN 10-325 TAB PO PRN ×2 (06:22→16:10)
[2021-04-13 07:26] LABS: INR 3.3 (0.9-1.1); Prothrombin Time 30.1 Seconds (9.0-12.0)
[2021-04-13] MEDS: DOXYCYCLINE HYCLATE 100 MG CAP PO SCH (08:00)
[2021-04-13] MEDS: OXYBUTYNIN CHLORIDE XL 5 MG TABCR PO SCH (08:01)
[2021-04-13] MEDS: buPROPion SR 150 MG TABCR PO SCH ×2 (08:01→13:20)
[2021-04-13] MEDS: PANTOprazole 40 MG TAB PO SCH (08:01)
[2021-04-13] MEDS: ADVANCED PROBIOTIC 1250 MG CAPSULE PO SCH (08:02)
[2021-04-13] MEDS: DULoxetine HCL 60 MG CAP PO SCH (08:02)
[2021-04-13] MEDS: FLUTICASONE PROPIONATE NA SPR 16 GM BTL NAE SCH (08:03)
[2021-04-13] MEDS: CALCIUM CARBONATE 1250MG TAB PO SCH ×3 (11:28→20:39)
[2021-04-13] MEDS: ASCORBIC ACID 500 MG TAB PO SCH ×2 (11:29→20:41)
[2021-04-13] MEDS: FERROUS SULFATE 325 MG TAB PO SCH ×2 (11:29→20:42)
--- NOTE | 2021-04-13 12:34 | Hospitalist Progress Note ---
Date of Service April 13, 2021 Assessment & Plan (1) Acute encephalopathy: Right lower extremity cellulitis, rule out abscess/hematoma Worsening of swelling, redness noted on the right leg: Patient reports worsening of tenderness: Change antibiotic to daptomycin, (dc p.o. doxy ) continue Rocephin Ordered for CT of right leg to rule out abscess or hematoma INR has been elevated 3.3, Coumadin kept on hold Metabolic encephalopathy. resolved conversing appropriately Pt presented with confusion. CT head negative. WBC 16.63, procal 2.93, temp 38.3 was hypotensive in ER vitals stable now , afebrile with stable BP metabolic encephalopathy due to possible sepsis ( pneumonia , r lower extremity cellulitis ). Concern for possible CO2 retention given obstructive sleep apnea does not have some home CPAP machine Patient has been awake and alert oriented since admission, Sepsis has resolved, normal white count, (2) Fever: Sepsis : met SIRS criteria : elevated white count 16K , fever , elevated pro robert possible source Pneumonia / lower ext cellulitis pt reports of diarrhea and loose stool with IV Zosyn Currently concern for worsening of cellulitis, on right lower extremity, antibiotic changed to daptomycin and Rocephin Cellulitis of right lower limb Acute on chronic diastolic CHF Patient appears to be volume overloaded with shortness of breath, abdominal distention, murmur heard on exam - was given lasix 40 mg IV in the ER patient takes Torsemide 100 mg BID daily continued Lasix continued BID dosing Last 2D echo on 05/04/2019-showed LV wall thickness mildly concentric, normal wall motion, LVEF 55 to 59%, diastolic function mildly abnormal, mild aortic valve sclerosis present - will repeat echo - BNP is not elevated currently - cardiology consult appreciated - Strict I/Os,daily weight COPD exacerbation : - Possible COPD exacerbation. Also note of chronic tobacco use x 50 years with possible underlying COPD however no formal PFTs to review. -VBG completed showing pH of 7.35, CO2 61, bicarb 32- encouraged wearing BiPAP tonight, patient noncompliance at home - likely chronically retains Co2. 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 (5) DVT (deep venous thrombosis): on coumadin (6) Narcotic dependence: -Takes this for chronic back pain, PDMP reviewed as above Her home pain medication resumed (7) Morbid obesity: BMI of 70.1, diet and exercise to be encouraged, will allow heart healthy diet (8) Hypokalemia: corrected (9) MDD (major depressive disorder): -Continue Wellbutrin and Cymbalta (10) Hypothyroidism: -ordered levothyroxine 88 mcg daily - (11) GERD (gastroesophageal reflux disease): -Continue omeprazole DVT PPx: -Imaging has been kept on hold for elevated INR 3.3 CODE: Full code Dispo: Need continued hospital stay due to worsening of right lower extremity cellulitis Admission and Anticipated Discharge Date Admission Date: April 09, 2021 Subjective Patient reports of worsening of pain and swelling on right leg: Does not have any cough no shortness of breath no fever or chills No chest pain or dyspnea on exertion Agreeable to stay 1 more day as she will need to continue IV antibiotics for lower extremity swelling Review of Systems 2 Musculoskeletal: Worsening of swelling/redness, increased warmth on right leg Physical Exam Constitutional: WD/WN, vitals as above + morbidly obese Eyes: PERRL, conjunctivae normal, anicteric sclerae ENMT: external ear and nose normal, oropharynx normal Respiratory: no respiratory distress Auscultation: + diminished lung sounds, + crackles and + rales; no rhonchi and no wheezes Cardiovascular: Rate/Rhythm: regular rate and regular rhythm Gastrointestinal (Abdomen): Percussion/Palpation: abdomen soft; abdomen nontender Musculoskeletal: Large hard erythematous area on right upper leg below knee,, increased warmth increased tenderness, cellulitis/erythematous change extended to right ankle Skin: + erythema (At right lower extremity,) Neurologic: PERRL, EOMI, accommodation nl, no face palsy, no dysarthria Psychiatric: A+Ox3, euthymic affect Results & Data Results & Data ([facility]) Vital Signs (Past 12 Hours) Vital Signs Temp Pulse Pulse Resp BP BP Pulse Ox 04/13/21 11:08 37.2 C 72 18 115/75 96 04/13/21 07:48 78 04/13/21 07:26 37.7 C H 75 18 124/80 97 04/13/21 04:47 37.0 C 76 20 116/66 93 04/13/21 02:42 30 H 97
[2021-04-13] MEDS: DAPTOmycin 450 MG in SYRINGE 0 ML IV SCH (13:20)
[2021-04-13] MEDS: DICLOFENAC SOD 1% GEL 100 GM TUBE EXT PRN (17:09)
[2021-04-13] MEDS: HYDROmorphone INJ 2 MG/ML SYR/VIAL IV PRN (17:58)
[2021-04-13] MEDS: cefTRIAXone SODIUM 2,000 MG in DEXTROSE 5% 50 ML IV SCH (19:04)
[2021-04-13] MEDS: FOLIC ACID 1 MG TAB PO SCH (20:40)
--- NOTE | 2021-04-13 21:27 | CT Scan Report ---
CT tib/fib RT wo con CT DOSE: 554.26 mGy.cm CLINICAL HISTORY: cellulitis, r/u abscess TECHNIQUE: A dose lowering technique was utilized adhering to the principles of ALARA. COMPARISON STUDY: None. FINDINGS: No evidence of acute fracture or dislocation seen. Prominent diffuse soft tissue edema is seen. There is 11.7 x 4.9 x 2.8 cm hypoattenuating collection is seen within medial subcutaneous tissue in the r egion of the right tibia and fibula. No definite gas bubbles is seen within collection to suggest abs cess formation. Evaluation is limited due to lack of IV contrast. IMPRESSION: 1. Possible abscess within the medial subcutaneous tissue at the level of the tibia and fibula. Eval uation is limited due to lack of IV contrast. Further evaluation with contrast-enhanced CT or ultraso und might be considered. 2. Diffuse soft tissue edema. 3. No acute fracture or dislocation. ACT 112: Positive. There are findings on this exam that require communication between the performing entity and the patient following Patient Test Result Information Act ([place] Act 112) guidelines. The above report was generated using voice recognition software. It may contain grammatical, syntax o r spelling errors. Electronically signed by: Rosemary Navarrete DO 04/13/2021 9:26 PM
[2021-04-13] MEDS ORDERED: PIPERACILL/TAZOBAC CONSULT ACTIVE PRN (23:00)
[2021-04-13] MEDS ORDERED: PIPERACILLIN/TAZOBACTAM 4.5 GM in DEXTROSE 5% 100 ML IV ONE (23:30)
[2021-04-14] MEDS: PIPERACILLIN/TAZOBACTAM 4.5 GM in DEXTROSE 5% 100 ML IV SCH ×3 (06:12→22:26)
[2021-04-14] MEDS: LEVOTHYROXINE SODIUM 88 MCG TABLET PO SCH (06:15)
[2021-04-14] MEDS: PANTOprazole 40 MG TAB PO SCH (07:53)
[2021-04-14] MEDS: buPROPion SR 150 MG TABCR PO SCH ×2 (07:54→13:38)
[2021-04-14] MEDS: ADVANCED PROBIOTIC 1250 MG CAPSULE PO SCH (07:54)
[2021-04-14] MEDS: FLUTICASONE PROPIONATE NA SPR 16 GM BTL NAE SCH (07:54)
[2021-04-14] MEDS: OXYBUTYNIN CHLORIDE XL 5 MG TABCR PO SCH (07:54)
[2021-04-14] MEDS: DULoxetine HCL 60 MG CAP PO SCH (07:54)
[2021-04-14] MEDS: DICLOFENAC SOD 1% GEL 100 GM TUBE EXT PRN ×2 (07:55→20:31)
[2021-04-14] MEDS ORDERED: FUROSEMIDE 40 MG in SYRINGE 0 ML IV ONE (08:15)
--- NOTE | 2021-04-14 08:17 | Hospitalist Progress Note ---
Date of Service April 14, 2021 Assessment & Plan (1) Acute encephalopathy: Right leg: Possible abscess versus hematoma: CT of right leg: Possible abscess within the medial subcutaneous tissue at the level of the tibia and fibula. Evaluation is limited due to lack of IV contrast. Further evaluation with contrast-enhanced CT or ultrasound might be considered. Reports worsening of pain on right leg. Admitted with sepsis, metabolic encephalopathy Discussed case with on-call orthopedics, ordered ultrasound of leg to assess abscess versus hematoma Patient had a similar situation with the right leg hematoma in 2019 was treated conservatively Her INR has been 3.3, last dose of Coumadin was 5 mg on 04/11/2021 Labs shows INR 4 today Given history of factor V deficiency morbid obesity very high risk for thromboembolic event with interruption of anticoagulation Per orthopedics, will hold off reversal of anticoagulation. Patient will be extremely high risk for anesthesia and orthopedic procedure for surgical abscess drainage If ultrasound confirms collection of abscess patient will need IR guided drainage tertiary care center Plan of care updated to patient at bedside, agreeable with the plan Right lower extremity cellulitis, possible abscess/hematoma As outlined above, currently on daptomycin and Zosyn Coagulopathy with INR-4 Coumadin has been kept on hold for past few days for elevated INR Metabolic encephalopathy. Admission with metabolic encephalopathy sepsis possible secondary to right leg abscess versus hematoma Encephalopathy has resolved conversing appropriately Pt presented with confusion. CT head negative. WBC 16.63, procal 2.93, temp 38.3 was hypotensive in ER vitals stable now , afebrile with stable BP metabolic encephalopathy due to possible sepsis ( pneumonia , r lower extremity cellulitis ). Concern for possible CO2 retention given obstructive sleep apnea does not have some home CPAP machine CT of right leg shows possible abscess/hematoma (2) Fever: Sepsis : met SIRS criteria : elevated white count 16K , fever , elevated pro robert possible source Pneumonia / lower ext cellulitis/right lower extremity abscess versus hematoma Patient has been afebrile since admission On IV daptomycin and Zosyn COPD exacerbation : - Possible COPD exacerbation. of chronic tobacco use x 50 years with possible underlying COPD however no formal PFTs to review. -VBG completed showing pH of 7.35, CO2 61, bicarb 32- encouraged wearing BiPAP tonight, -Patient is diagnosed with obstructive sleep apnea, was ordered CPAP which she has not picked up yet, Patient's presentation on obtundation and confusion, CO2 retention possibly can be contributing - Nocturnal pulse oximetry shows significant desaturation, ordered for nighttime 2 L oxygen, Prescription given to case management, arrangement made to liters oxygen at night, patient is encouraged to pick up attendant her CPAP machine and use it diligently Ordered for CPAP at bedtime (3) SIRS (systemic inflammatory response syndrome): -resolved , afebrile , with resolution of confusion (4) Factor V deficiency: -INR 4 Coumadin has been kept on hold (5) DVT (deep venous thrombosis): History of DVT, INR elevated (6) Narcotic dependence: -Takes this for chronic back pain, PDMP reviewed as above Her home pain medication resumed (7) Morbid obesity: BMI of 70.1, diet and exercise to be encouraged, will allow heart healthy diet (8) Hypokalemia: corrected (9) MDD (major depressive disorder): -Continue Wellbutrin and Cymbalta (10) Hypothyroidism: -ordered levothyroxine 88 mcg daily - (11) GERD (gastroesophageal reflux disease): -Continue omeprazole DVT PPx: INR 4 CODE: Full code Dispo: To be determined, if ultrasound of right lower extremity shows evidence of abscess, Will need IR guided drainage at tertiary care Admission and Anticipated Discharge Date Admission Date: April 09, 2021 Subjective Follow-up visit for acute metabolic encephalopathy/right lower leg cellulitis Patient seen at bedside in room 2872 Finishing her breakfast, complains of worsening of pain on right upper leg, area is warm, erythematous, very tender, Unable to bear weight. Did not had any fever overnight, CT of right leg showed possible hematoma versus abscess, right lower extremity ultrasound ordered for confirmation. Explained to patient at bedside, if there is confirmation of abscess she may needs to be transferred to higher level of care/[facility] for IR guided drainage INR 4, given obstructive sleep apnea morbid obesity, high risk for surgical procedure and anesthesia. Patient is very tearful, and anxious. Did not had any complaint of cough, denies of any complaint of shortness of breath or orthopnea. No confusion, or metabolic encephalopathy noted, she has been awake and alert or iented since admission Review of Systems Review of Systems: All systems reviewed & are unremarkable except as noted in Subjective Musculoskeletal: Increased pain, swelling on right upper leg Physical Exam Constitutional: WD/WN, vitals as above + morbidly obese Eyes: PERRL, conjunctivae normal, anicteric sclerae ENMT: external ear and nose normal, oropharynx normal Respiratory: no respiratory distress Auscultation: + diminished lung sounds, + crackles and + rales; no rhonchi and no wheezes Cardiovascular: Rate/Rhythm: regular rate and regular rhythm Gastrointestinal (Abdomen): Percussion/Palpation: abdomen soft; abdomen nontender Skin: + erythema (At right lower extremity,) Large area of swelling on right upper leg/below knee, area is with increased warmth tensed and tender, overlying area shiny, with erythema Neurologic: PERRL, EOMI, accommodation nl, no face palsy, no dysarthria Psychiatric: A+Ox3, euthymic affect Results & Data Results & Data ([facility]) Vital Signs (Past 12 Hours) Vital Signs Temp Pulse Pulse Resp BP Pulse Ox 04/14/21 07:44 75 04/14/21 07:40 37.1 C 76 18 120/72 93 04/14/21 03:53 36.7 C 70 20 117/70 90 04/14/21 03:09 25 H 96 04/14/21 01:52 83 04/13/21 23:38 37.4 C 85 18 134/74 100 04/13/21 22:28 85 26 H 96
[2021-04-14 08:46] LABS: Basophils # (auto) 0.01 K/uL (0-0.2); Basophils % (auto) 0.1 %; Eosinophils % (auto) 1.3 %; Hematocrit (blood only) 37.1 % (37-47); Hemoglobin 12.3 g/dL (12.0-16.0); Immature Granulocytes # (auto) 0.12 K/uL (0.00-0.02); Immature Granulocytes % (auto) 1.5 %; Lymphocytes # (auto) 0.86 K/uL (1.2-3.4); Lymphocytes % (auto) 10.9 %; Mean Corpuscular Hemoglobin 31.5 pg (25-34); Mean Corpuscular Hgb Conc 33.2 g/dL (32-36); Mean Corpuscular Volume 94.9 fL (80-100); Mean Platelet Volume 10.4 fL (7.4-10.4); Monocytes # (auto) 1.13 K/uL (0.11-0.59); Monocytes % (auto) 14.3 %; Neutrophils # (auto) 5.67 K/uL (1.4-6.5); Neutrophils % (auto) 71.9 %; Platelet Count 230 K/uL (130-400); RDW Coefficient of Variation 13.6 % (11.5-14.5); RDW Standard Deviation 47.2 fL (36.4-46.3); Red Blood Count 3.91 M/uL (4.2-5.4); White Blood Count 7.89 K/uL (4.8-10.8)
[2021-04-14 08:58] LABS: Albumin Level 2.1 gm/dl (3.4-5.0); BUN Creatinine Ratio 11.9 (10-20); Calcium 8.6 mg/dl (8.5-10.1); Creatinine Clr Calc Pharmacy 185.1 ml/min; Est GFR (African American) 118.1 ml/min; Est GFR (Non-African American) 101.9 ml/min; Potassium 3.4 mmol/L (3.5-5.1)
[2021-04-14] MEDS ORDERED: POLYETHYLENE (MIRALAX) 17 GM PACK PO SCH (09:00)
[2021-04-14] MEDS ORDERED: FUROSEMIDE 40 MG TAB PO SCH (09:00)
[2021-04-14 09:01] LABS: Albumin Globulin Ratio 0.4 (0.9-2); Bilirubin,Total 0.5 mg/dl (0.2-1); Globulin 4.8 gm/dl (2.5-4.0); Total Protein 6.9 gm/dl (6.4-8.2)
--- NOTE | 2021-04-14 10:47 | Ultrasound Report ---
US extremity nonvascular HISTORY: 51 years-old Female Right leg evaluation of abscess/hematoma follow-up study in a patient w ith reported hematoma of the right lower extremity previously measuring up to 15.5 x 3.3 x 7.2 cm. COMPARISON: Ultrasound of the right lower extremity 06/29/2020 TECHNIQUE: Multiple real-time sonographic images of the right lower extremity pretibial tissues were obtained assessing grayscale appearance and color flow FINDINGS: Persistent subcutaneous edema. There is a complex fluid collection within the anterolateral right robert f tissues redemonstrated which appears less complex than prior study and now measures 17.1 x 5.2 x 13 .6 cm, previously measured at 15.5 x 3.3 x 7.2 cm. IMPRESSION: Subcutaneous fluid collection of the anterolateral right lower leg redemonstrated measuri ng up to 17.1 cm, mildly increased in size from 06/29/2020. ACT 112: Negative or not required by law. The above report was generated using voice recognition software. It may contain grammatical, syntax o r spelling errors. Electronically signed by: Brett Osuna M.D. 04/14/2021 10:46 AM
[2021-04-14] MEDS ORDERED: POTASSIUM CHLORIDE CRTAB 20 MEQ TABCR PO ONE (11:00)
[2021-04-14] MEDS: CALCIUM CARBONATE 1250MG TAB PO SCH ×3 (11:05→22:32)
[2021-04-14] MEDS: ASCORBIC ACID 500 MG TAB PO SCH ×2 (11:06→22:32)
[2021-04-14] MEDS: FERROUS SULFATE 325 MG TAB PO SCH ×2 (11:06→22:32)
--- NOTE | 2021-04-14 11:14 | Communication Note ---
Date of Service: April 14, 2021 Patient's lower extremity ultrasound showed 17 cm complex fluid collection possible abscess versus hematoma Updated on-call orthopedics, Patient needs IR guided drainage and placement of drain at the site of abscess/hematoma Patient is extremely high risk for anesthesia/OR-for surgical drainage by orthopedics Needs to be transferred to tertiary care where interventional radiology services available. Spoke with [facility] transfer center, and case discussed with Dr. Pratibha Mckinnon requests images of CT and ultrasound of right leg to be uploaded to Xi[employer] system, Interventional radiology team in [facility] will evaluate the image, and decide whether patient needs to be transferred to [place] for abscess drainage. [facility] radiology updated, images asked to transmit to [place] Will await from [place] to call back with a decision to accepted for transfer Kerry Couch MD
[2021-04-14] MEDS: oxyCODONE/ACETAMINOPHEN 10-325 TAB PO PRN ×2 (11:18→20:29)
--- NOTE | 2021-04-14 11:22 | Orthopedic Consultation ---
Date of Consultation April 14, 2021 Assessment & Plan (1) Cellulitis of leg, right: Abscess versus hematoma, right lower extremity cellulitis, supratherapeutic INR, 4.0 today, patient has been off Coumadin for several days. Patient is extremely high risk for surgical intervention, multiple c omorbidities, factor V Leiden, super morbidly obese, supratherapeutic INR, recommend interventional radiology for decompression and testing of fluid collection, and drain placement. Unfortunately we do not have interventional radiology and this would require transfer to tertiary care center. Continue IV antibiotics for now, nonweightbearing on the right lower extremity, tight control of patient's INR. Thank you for the consultation History of Present Illness Reason for Consultation: Right leg cellulitis questionable abscess Attending Physician: Kerry Couch MD History of Present Illness The patient is a 51-year-old morbidly obese female with past medical history noted below who presented to [facility] secondary to mental status and was admitted for acute encephalopathy and found to have worsening right lower extremity cellulitis, CT scan performed on right lower extremity demonstrated hypoattenuated fluid collection in the anterolateral leg, patient did have similar problem in June 2020 which resolved with conservative treatments. Patient admits to start on electronic 3 weeks pertinent symptoms cellulitis and pain started 1 week prior to admission. Denies any trauma to the right lower extremity. Denies any numbness or tingling to the right lower extremity. Allergies Allergy/AdvReac Type Severity Reaction Status Date / Time latex Allergy Intermediate SKIN Verified 04/09/21 11:33 IRRITATION adhesive AdvReac Intermediate skin Verified 04/09/21 11:33 tearing NYLON STITCHES Allergy Mild erythema/pu Uncoded 04/09/21 11:33 s Home Medications Medication Instructions Recorded Confirmed Type calcium carbonate 600 mg calcium 600 mg PO TID tab 06/29/19 04/09/21 History (1,500 mg) tablet cyclobenzaprine 5 mg tablet 5 mg PO HS PRN tab 06/29/19 04/09/21 History fluticasone propionate 50 2 sprays INTRANASAL DAILY gm 06/29/19 04/09/21 History mcg/actuation nasal spray,suspension furosemide 20 mg tablet 20 mg PO QAM PRN tab 06/29/19 04/09/21 History iron,carbonyl 65 mg-vitamin C 125 1 tab PO BID tab 06/29/19 04/09/21 History mg tablet,delayed release levothyroxine 88 mcg tablet 88 mcg PO DAILYBB tab 06/29/19 04/09/21 History omeprazole 20 mg tablet,delayed 40 mg PO QAM tab 06/29/19 04/09/21 History release potassium gluconate 595 mg (99 mg) 595 mg PO HS PRN tab 06/29/19 04/09/21 History tablet warfarin 10 mg tablet See Rx Instructions .ROUTE 06/29/19 04/09/21 History .COMPLEX tab zolpidem 5 mg tablet 5 mg PO HS tab 06/29/19 04/09/21 History duloxetine 60 mg PO QAM 06/14/20 04/09/21 History fexofenadine-pseudoephedrine 1 tab PO Q12H PRN 06/14/20 04/09/21 History [Ayde-D 12 Hour] folic acid 5 mg PO HS 06/14/20 04/09/21 History bupropion HCl [Wellbutrin SR] See Rx Instructions .ROUTE .COMPLEX 04/09/21 04/09/21 History oxybutynin chloride [Ditropan XL] 5 mg PO DAILY 04/09/21 04/09/21 History oxycodone-acetaminophen 1 tab PO Q6H PRN 04/09/21 04/09/21 History Patient History Medical History Anticoagulated on warfarin Cellulitis of leg, right Chronic back pain DVT (deep venous thrombosis) Factor V deficiency GERD (gastroesophageal reflux disease) Hematoma of right lower leg Kidney stone on left side Morbid obesity Narcotic dependence Thrombophlebitis of right saphenous vein Surgical History History of gastric bypass Social History Smoking Status: Never smoker Preferred Language: Irish Communication Ability: Effective Mis Director Required: No Beliefs That Will Affect Care: None marital status: Single Current Living Situation: Spouse Current Living Situation Comment: boyfriend Feels Safe at Home: Declines to Answer Assistive Devices: CPAP Review of Systems Review of Systems: All systems reviewed & are unremarkable except as noted in HPI & below Constitutional: as per Subjective / HPI Physical Exam Physical Exam: Right lower extremity neurovascular and sensory intact grossly, compartments tender to palpation but compressible, erythema to the right lower leg with edema Constitutional: WD/WN, vitals as above Results & Data ([facility]) Vital Signs (Past 12 Hours) Vital Signs Temp Pulse Pulse Resp BP Pulse Ox 04/14/21 11:10 37.1 C 74 18 112/74 93 04/14/21 07:44 75 04/14/21 07:40 37.1 C 76 18 120/72 93 04/14/21 03:53 36.7 C 70 20 117/70 90 04/14/21 03:09 25 H 96 04/14/21 01:52 83 04/13/21 23:38 37.4 C 85 18 134/74 100 Laboratory Results 04/14/21 04/14/21 04/14/21 Range/Units 08:59 08:59 08:59 WBC (4.8-10.8) K/uL RBC (4.2-5.4) M/uL Hgb (12.0-16.0) g/dL Hct (37-47) % MCV (80-100) fL MCH (25-34) pg MCHC (32-36) g/dL RDW Std Deviation (36.4-46.3) fL RDW Coeff of Deandre (11.5-14.5) % Plt Count (130-400) K/uL MPV (7.4-10.4) fL Immature Gran % (Auto) % Neut % (Auto) % Lymph % (Auto) % [place] % (Auto) % Eos % (Auto) % Baso % (Auto) % Neut # (Auto) (1.4-6.5) K/uL Lymph # (Auto) (1.2-3.4) K/uL [place] # (Auto) (0.11-0.59) K/uL Eos # (Auto) (0-0.5) K/uL Baso # (Auto) (0-0.2) K/uL Immature Gran # (Auto) (0.00-0.02) K/uL PT (9.0-12.0) Seconds INR (0.9-1.1) Sodium (136-145) mmol/L Potassium (3.5-5.1) mmol/L Chloride (98-107) mmol/L Carbon Dioxide (21-32) mmol/L Anion Gap (3-11) BUN (7-18) mg/dl Creatinine (0.6-1.2) mg/dl Est Cr Clr Drug Dosing ml/min Est GFR ( Amer) ml/min Est GFR (Non-Af Amer) ml/min BUN/Creatinine Ratio (10-20) Glucose (70-99) mg/dl Lactate 1.3 (0.4-2.0) mmol/L Calcium (8.5-10.1) mg/dl Total Bilirubin (0.2-1) mg/dl AST (15-37) U/L ALT (12-78) U/L Alkaline Phosphatase (45-117) U/L C-Reactive Protein 18.40 H (0-0.29) mg/dl Total Protein (6.4-8.2) gm/dl Albumin (3.4-5.0) gm/dl Globulin (2.5-4.0) gm/dl Albumin/Globulin Ratio (0.9-2) Procalcitonin 0.35 (0-0.5) ng/ml 04/14/21 04/14/21 04/14/21 Range/Units 07:44 07:44 07:44 WBC 7.89 (4.8-10.8) K/uL RBC 3.91 L (4.2-5.4) M/uL Hgb 12.3 (12.0-16.0) g/dL Hct 37.1 (37-47) % MCV 94.9 (80-100) fL MCH 31.5 (25-34) pg MCHC 33.2 (32-36) g/dL RDW Std Deviation 47.2 H (36.4-46.3) fL RDW Coeff of Deandre 13.6 (11.5-14.5) % Plt Count 230 (130-400) K/uL MPV 10.4 (7.4-10.4) fL Immature Gran % (Auto) 1.5 % Neut % (Auto) 71.9 % Lymph % (Auto) 10.9 % [place] % (Auto) 14.3 % Eos % (Auto) 1.3 % Baso % (Auto) 0.1 % Neut # (Auto) 5.67 (1.4-6.5) K/uL Lymph # (Auto) 0.86 L (1.2-3.4) K/uL [place] # (Auto) 1.13 H (0.11-0.59) K/uL Eos # (Auto) 0.10 (0-0.5) K/uL Baso # (Auto) 0.01 (0-0.2) K/uL Immature Gran # (Auto) 0.12 H (0.00-0.02) K/uL PT 36.0 H (9.0-12.0) Seconds INR 4.0 H (0.9-1.1) Sodium 137 (136-145) mmol/L Potassium 3.4 L (3.5-5.1) mmol/L Chloride 101 (98-107) mmol/L Carbon Dioxide 30 (21-32) mmol/L Anion Gap 6.0 (3-11) BUN 8 (7-18) mg/dl Creatinine 0.64 (0.6-1.2) mg/dl Est Cr Clr Drug Dosing 185.1 ml/min Est GFR ( Amer) 118.1 ml/min Est GFR (Non-Af Amer) 101.9 ml/min BUN/Creatinine Ratio 11.9 (10-20) Glucose 103 H (70-99) mg/dl Lactate (0.4-2.0) mmol/L Calcium 8.6 (8.5-10.1) mg/dl Total Bilirubin 0.5 (0.2-1) mg/dl AST 21 (15-37) U/L ALT 32 (12-78) U/L Alkaline Phosphatase 110 (45-117) U/L C-Reactive Protein (0-0.29) mg/dl Total Protein 6.9 (6.4-8.2) gm/dl Albumin 2.1 L (3.4-5.0) gm/dl Globulin 4.8 H (2.5-4.0) gm/dl Albumin/Globulin Ratio 0.4 L (0.9-2) Procalcitonin (0-0.5) ng/ml Diagnostic Findings US extremity nonvascular HISTORY: 51 years-old Female Right leg evaluation of abscess/hematoma follow-up study in a patient with reported hematoma of the right lower extremity previously measuring up to 15.5 x 3.3 x 7.2 cm. COMPARISON: Ultrasound of the right lower extremity 06/29/2020 TECHNIQUE: Multiple real-time sonographic images of the right lower extremity pretibial tissues were obtained assessing grayscale appearance and color flow FINDINGS: Persistent subcutaneous edema. There is a complex fluid collection within the anterolateral right calf tissues redemonstrated which appears less complex than prior study and now measures 17.1 x 5.2 x 13.6 cm, previously measured at 15.5 x 3.3 x 7.2 cm. IMPRESSION: Subcutaneous fluid collection of the anterolateral right lower leg redemonstrated measuring up to 17.1 cm, mildly increased in size from 06/29/2020. CT tib/fib RT wo con CT DOSE: 554.26 mGy.cm CLINICAL HISTORY: cellulitis, r/u abscess TECHNIQUE: A dose lowering technique was utilized adhering to the principles of ALARA. COMPARISON STUDY: None. FINDINGS: No evidence of acute fracture or dislocation seen. Prominent diffuse soft tissue edema is seen. There is 11.7 x 4.9 x 2.8 cm hypoattenuating collection is seen within medial subcutaneous tissue in the region of the right tibia and fibula. No definite gas bubbles is seen within collection to suggest abscess formation. Evaluation is limited due to lack of IV contrast. IMPRESSION: 1. Possible abscess within the medial subcutaneous tissue at the level of the tibia and fibula. Evaluation is limited due to lack of IV contrast. Further evaluation with contrast-enhanced CT or ultrasound might be considered. 2. Diffuse soft tissue edema. 3. No acute fracture or dislocation.
[2021-04-14] MEDS: DAPTOmycin 450 MG in SYRINGE 0 ML IV SCH (13:37)
--- NOTE | 2021-04-14 15:30 | Discharge Summary ---
Date of Service April 14, 2021 Admission HPI Per Admitting Provider This is a 51 yo M with PMHx of morbid obesity with BMI of 70.1, chronic back pain, HTN, depression, chronic RLE wound, hypothyroidism, hyperparathyroidism, Facotr V Leiden with hx of DVT on coumadin who presents with fever to the ER. She has a friend with her at bedside who reports that she has not been feeling well since Thursday evening. Her friend reports that she did not come to babysit her child yesterday and that did not drive her boyfriend who lives with her to work earlier today because she did not feel well, which is very unlike her. The patient seems somewhat confused and is having difficulty answering specific orientation questions. She knows she is in a hospital but cannot name it, answers the year and date incorrectly. At times she is able to recall that she took her medications but does not recognize medication like levothyroxine and thinks she stopped stopped taking this several days ago. She reports that she feels cold, no sweats. She reports that she had a small blister on her right lower extremity pop a few days ago and that there is some erythema around the area where previously had an old chronic leg wound. She does not feel that it is more swollen than her baseline. It is not painful. Patient ambulated without any difficulty earlier today. But does not endorse any other positive review of systems. In the ER the patient is found to have a temperature of 38.3, WBC of 16 K, negative lactic acid, elevated pro-Robert, CXR showing possible left lower lobe infiltrate versus edema. With her increased confusion will check a CT of the head stat. Principal Diagnosis RIGHT LOWER EXTREMITY ABSCESS FACTOR V LEIDEN /HX OF LOWER EXTREMITY DVT INR 4 Discharge Exam Constitutional WD/WN, vitals as above + morbidly obese Eyes PERRL, conjunctivae normal, anicteric sclerae ENMT external ear and nose normal, oropharynx normal Respiratory no respiratory distress Auscultation: + diminished lung sounds, + crackles and + rales; no rhonchi and no wheezes Cardiovascular Rate/Rhythm: regular rate and regular rhythm Gastrointestinal (Abdomen) Percussion/Palpation: abdomen soft; abdomen nontender Skin + erythema (At right lower extremity,) Neurologic PERRL, EOMI, accommodation nl, no face palsy, no dysarthria Psychiatric A+Ox3, euthymic affect Discharge Data Allergies Allergy/AdvReac Type Severity Reaction Status Date / Time latex Allergy Intermediate SKIN Verified 04/09/21 11:33 IRRITATION adhesive AdvReac Intermediate skin Verified 04/09/21 11:33 tearing NYLON STITCHES Allergy Mild erythema/pu Uncoded 04/09/21 11:33 s Consultations 04/09/21 12:11 ED Decision to Admit Stat 04/13/21 22:36 Consult Orthopedic Surgery Routine 04/14/21 14:59 Burn CD for patient Routine Ordered Studies 04/09/21 12:55 CT head/brain wo con Stat 04/13/21 18:12 CT tib/fib RT wo con Routine 04/14/21 08:07 US extremity nonvascular Urgent Hospital Course (1) Acute encephalopathy: Right legAbscess CT of right leg: Possible abscess within the medial subcutaneous tissue at the level of the tibia and fibula. Evaluation is limited due to lack of IV contrast. Further evaluation with contrast-enhanced CT or ultrasound might be considered. Reports worsening of pain on right leg. Admitted with sepsis, metabolic encephalopathy Discussed case with on-call orthopedics, ordered ultrasound of leg to assess abscess versus hematoma Patient had a similar situation with the right leg hematoma in 2019 was treated conservatively Her INR has been 3.3, last dose of Coumadin was 5 mg on 04/11/2021 Labs shows INR 4 today Given history of factor V deficiency morbid obesity very high risk for thromboembolic event with interruption of anticoagulation Per orthopedics, will hold off reversal of anticoagulation. Patient will be extremely high risk for anesthesia and orthopedic procedure for surgical abscess drainage Ultrasound of rt lower extremity : FINDINGS: Persistent subcutaneous edema. There is a complex fluid collection within the anterolateral right calf tissues redemonstrated which appears less complex than prior study and now measures 17.1 x 5.2 x 13.6 cm, previously measured at 15.5 x 3.3 x 7.2 cm. IMPRESSION: Subcutaneous fluid collection of the anterolateral right lower leg re demonstrated measuring up to 17.1 cm, mildly increased in size from 06/29/2020. pt's H&H been 12.3/37.1 no evidence of acute blood loss anemia -seen in large hematoma fluid collection most possibly due to infectious cause abscess Ortho eval appreciated : patient is a very high surgical risk : severe ELAN / very poor anesthesia candidate , INR 4 , reversal of anticoagulation will not be safe given hypercoagulable status -Factor V Leiden needs minimally invasive IR guided drainage of abscess with possible drain placement Interventional Cardiology service not available at [facility] Spoke with [facility] pt is accepted to be transferred Right lower extremity cellulitis, possible abscess As outlined above, currently on daptomycin and Zosyn Coagulopathy with INR-4 Coumadin has been kept on hold for past few days for elevated INR Metabolic encephalopathy. Admission with metabolic encephalopathy sepsis possible secondary to right leg abscess versus hematoma Encephalopathy has resolved conversing appropriately Pt presented with confusion. CT head negative. WBC 16.63, procal 2.93, temp 38.3 was hypotensive in ER vitals stable now , afebrile with stable BP metabolic encephalopathy due to possible sepsis ( pneumonia , r lower extremity cellulitis ). Concern for possible CO2 retention given obstructive sleep apnea does not have some home CPAP machine CT of right leg shows possible abscess (2) Fever: Sepsis : met SIRS criteria : elevated white count 16K , fever , elevated pro robert possible source Pneumonia / lower ext cellulitis/right lower extremity abscess versus hematoma Patient has been afebrile since admission On IV daptomycin and Zosyn COPD exacerbation : - Possible COPD exacerbation. of chronic tobacco use x 50 years with possible underlying COPD however no formal PFTs to review. -VBG completed showing pH of 7.35, CO2 61, bicarb 32- encouraged wearing BiPAP tonight, -Patient is diagnosed with obstructive sleep apnea, was ordered CPAP which she has not picked up yet, Patient's presentation on obtundation and confusion, CO2 retention possibly can be contributing - Nocturnal pulse oximetry shows significant desaturation, ordered for nighttime 2 L oxygen, Prescription given to case management, arrangement made to liters oxygen at night, patient is encouraged to cloth picker her CPAP machine and use it diligently Ordered for CPAP at bedtime (3) SIRS (systemic inflammatory response syndrome): -resolved , afebrile , with resolution of confusion (4) Factor V deficiency: -INR 4 Coumadin has been kept on hold (5) DVT (deep venous thrombosis): History of DVT, INR elevated (6) Narcotic dependence: -Takes this for chronic back pain, PDMP reviewed as above Her home pain medication resumed (7) Morbid obesity: BMI of 70.1, diet and exercise to be encouraged, will allow heart healthy diet (8) Hypokalemia: corrected (9) MDD (major depressive disorder): -Continue Wellbutrin and Cymbalta (10) Hypothyroidism: -ordered levothyroxine 88 mcg daily - (11) GERD (gastroesophageal reflux disease): -Continue omeprazole DVT PPx: INR 4 CODE: Full code Dispo:patient is being transferred to [facility] accepting Physician Dr Emil Diaz Total Time Total Time Spent Total Time Spent (In Minutes): approx 40 mins Total Time Includes: Examination of the Patient, Discharge Planning, Medication Reconciliation and Communication With Other Providers Discharge Plan Discharge Items Patient Disposition: Transfer Acute Care Hospital Reason For Visit: FEVER Discharge Diagnosis: RIGHT LOWER EXTREMITY ABSCESS FACTOR V LEIDEN /HX OF LOWER EXTREMITY DVT INR 4 Activity: As commented below Activity Comment: NON WT BEARING ON RIGHT LEG Non-emergency contact: Primary Care Provider Call non-emergency contact if: you have any medication questions Follow-up/Referrals: Krzysztof Pickering MD [Primary Care Provider] - Diet: Heart Healthy Addtl Attending Provider Instructions: Patient is transferred to [facility] for possible IR Guided Drainage for Rt leg abscess Accepting Physician : Dr Emil Diaz Antibiotics : Continue on IV Daptomycin and IV Zosyn Coumadin has been on hold since 04/11/21 Pending Studies at Discharge: No Stand-Alone Forms: My [employer], Smoking Cessation Skilled Items Patient informed of condition?: Yes DNR: No Discharge Level of Care: Other Communicable Disease: No Discharge Prognosis: Stable Lines: None Urinary Catheter: No Medications and DC Order Prescriptions: Continued calcium carbonate 600 mg calcium (1,500 mg) tablet 600 mg PO TID RF: 0 warfarin 10 mg tablet See Rx Instructions .ROUTE .COMPLEX RF: 0 cyclobenzaprine 5 mg tablet 5 mg PO HS PRN (Reason: MUSCLE SPASMS) RF: 0 fluticasone propionate 50 mcg/actuation spray,suspension 2 sprays intranasal DAILY RF: 0 furosemide 20 mg tablet 20 mg PO QAM PRN (Reason: Fluid Retention or weight gain) RF: 0 levothyroxine 88 mcg tablet 88 mcg PO DAILYBB RF: 0 omeprazole 20 mg tablet,delayed release (DR/EC) 40 mg PO QAM RF: 0 potassium gluconate 595 mg (99 mg) tablet 595 mg PO HS PRN (Reason: .) RF: 0 Vitron-C 65 mg iron- 125 mg tablet,delayed release (DR/EC) 1 tab PO BID RF: 0 zolpidem [Ambien] 5 mg tablet 5 mg PO HS RF: 0 folic acid 1 mg Tablet 5 mg PO HS RF: 0 fexofenadine-pseudoephedrine [Ayde-D 12 Hour] 60-120 mg Tablet Extended Release 12 Hr 1 tab PO Q12H PRN (Reason: Allergy Symptoms) RF: 0 duloxetine 60 mg Capsule,Delayed Release(Dr/Ec) 60 mg PO QAM RF: 0 oxybutynin chloride [Ditropan XL] 5 mg tablet extended release 24hr 5 mg PO DAILY RF: 0 bupropion HCl [Wellbutrin SR] 150 mg tablet sustained-release 12 hr See Rx Instructions .ROUTE .COMPLEX RF: 0 oxycodone-acetaminophen 10-325 mg tablet 1 tab PO Q6H PRN (Reason: Severe Pain (Scale Score 7-10)) RF: 0 Discharge Orders: Discharge Order (Routine); Ordered 04/14/21 Ordered By: Kerry Couch Admission Data Admit Date/Time: 04/09/21 12:52 Attending Provider: Kerry Couch Admit Provider: Rona Segura Primary Care Provider: Krzysztof Pickering Other Providers: Rona Segura ; Abhishek Avila ; Pancho Rangel ; Gabriel Mariano ; Saloni Elizalde Thomas J ; Blanca Corona ; Harris Cote ; Dwayne Barnett ; Fazal Gupta ; Domenico Dowd ; Dwayne White ; Temo Cain ; Luke Arriola ; Sridhar Villafana ; Bandar Chu ; Blanca Malone ; Iglesia Acosta ; Eric Mcmullen ; Josie Kerr John ; Dominga Esparza
[2021-04-14] MEDS: FOLIC ACID 1 MG TAB PO SCH (20:29)
[2021-04-14] MEDS: HYDROmorphone INJ 2 MG/ML SYR/VIAL IV PRN (20:38)
== END 2021-04-15 01:58 | disposition short-term general hospital (02) | DRG 871 ==
LOC: ED 09:09 → 2S 12:52 → SUATTDRO 12:52 → 2S 13:30 → 2E 15:47 → 2N 04-11 20:24

== ENCOUNTER 2021-05-25 18:19 | Inpatient (IN) ==
[2021-05-25] MEDS ORDERED: DAPTOmycin 475 MG in SYRINGE 0 ML IV STA (18:59)
[2021-05-25] MEDS ORDERED: SODIUM CHLORIDE 0.9% 1000ML 1,000 ML IV STA (18:59)
[2021-05-25] MEDS ORDERED: ACETAMINOPHEN 500 MG TAB PO STA (18:59)
[2021-05-25] MEDS ORDERED: CEFEPIME 2,000 MG/20 ML VIAL IV STA (18:59)
[2021-05-25] MEDS ORDERED: ONDANSETRON INJ 2 MG/ML 2 ML VIAL IV STA (18:59)
[2021-05-25] MEDS: HYDROmorphone INJ 0.5 MG/0.5 ML SYR IV PRN ×3 (19:35→22:22)
[2021-05-25 19:51] LABS: Basophils # (auto) 0.01 K/uL (0-0.2); Basophils % (auto) 0.1 %; Hemoglobin 14.2 g/dL (12.0-16.0); Immature Granulocytes # (auto) 0.05 K/uL (0.00-0.02); Immature Granulocytes % (auto) 0.3 %; Lymphocytes # (auto) 0.51 K/uL (1.2-3.4); Lymphocytes % (auto) 3.4 %; Mean Corpuscular Hemoglobin 31.8 pg (25-34); Mean Corpuscular Volume 96.2 fL (80-100); Mean Platelet Volume 9.6 fL (7.4-10.4); Monocytes # (auto) 0.61 K/uL (0.11-0.59); Monocytes % (auto) 4.1 %; Neutrophils # (auto) 13.82 K/uL (1.4-6.5); Neutrophils % (auto) 92.1 %; Platelet Count 248 K/uL (130-400); RDW Coefficient of Variation 14.2 % (11.5-14.5); RDW Standard Deviation 50.3 fL (36.4-46.3); Red Blood Count 4.47 M/uL (4.2-5.4)
[2021-05-25 20:12] LABS: BUN Creatinine Ratio 13.7 (10-20); Calcium 8.8 mg/dl (8.5-10.1); Creatinine Clr Calc Pharmacy 127.6 ml/min; Est GFR (African American) 81.3 ml/min; Est GFR (Non-African American) 70.2 ml/min; Potassium 3.9 mmol/L (3.5-5.1)
[2021-05-25 20:15] LABS: Albumin Globulin Ratio 0.7 (0.9-2); Bilirubin,Total 0.8 mg/dl (0.2-1); Globulin 4.6 gm/dl (2.5-4.0); Total Protein 7.6 gm/dl (6.4-8.2)
--- NOTE | 2021-05-25 21:55 | Emergency Department Note ---
Impression & Plan Cellulitis of leg, left, Leukocytosis ED Provider Note INFORMANT: Patient ED PROVIDER(S): Ramiro Beck MD CHIEF COMPLAINT: Cellulitis PLAN: Disposition: Admitted Condition: Good Outpatient prescription management: none Referral: None MEDICAL DECISION MAKING: Patient presented because of concerns of cellulitis in the left leg that was worsening. She was febrile. She clearly had cellulitis on examination. Blood work was obtained and she was found to have a leukocytosis. Chemistry panel was unremarkable. The patient was treated with IV daptomycin dosed by ideal body weight per ED pharmacist. The patient was also given a dose of cefepime. She was treated with Dilaudid and Zofran for the pain. Consultation was made with the [facility] Hospitalist service. Patient was evaluated in the ER for further management. Triage Nursing notes reviewed and agree them. Vital Signs: reviewed and remarkable for fever Differential diagnosis: Cellulitis, abscess, MRSA infection, DVT, necrotizing fasciitis, dermatitis, drug eruption, allergic reaction, as well as other pathologies. Diagnostics interpreted by me: ECG: none Cardiac Monitoring: Cardiac monitoring ordered by me: The patient was placed on continuous cardiac monitoring and observed. It revealed a normal sinus rhythm at 93 beats per minute without ectopy or evidence of dysrhythmia. Imaging studies: Deferred HPI: The patient is a 51 year old female who presents to the Emergency Room with complaints of left leg pain. This started 5 days ago and is worsening. The patient also notes the following associated symptoms, fever, seeping clear fluid, warmth and redness. Patient has a history of cellulitis and is concerned for the same. The patient has been prescribed oral antibiotics by her primary doctor for relieving factors. Current pain is rated as 10/10. Patient was given Toradol by EMS. Pt denies LOC, headache, chills, diaphoresis, visual changes, neck pain, chest pain, breathing difficulties, nausea, vomiting, abdominal pain, back pain, melena, hematochezia, urinary symptoms, numbness, weakness, lympha denopathy, rash, or other complaints. ROS: See above HPI for pertinent positives & negatives. A total of 10 systems reviewed and were otherwise negative. PAST MEDICAL HISTORY:See Below , cellulitis, DVT, SIRS PAST SURGICAL HISTORY:See Below, gastric bypass FAMILY HISTORY:See Below SOCIAL HISTORY:See Below, non-smoker HOME MEDICATIONS:See Below ALLERGIES:See Below VITALS:See Below PHYSICAL EXAMINATION: GENERAL: Awake, alert, uncomfortable-appearing, in no distress HENT: Normocephalic, atraumatic. Oropharynx unremarkable. EYES: Normal conjunctiva. Sclera non-icteric. NECK: Inspection normal. Non-tender. Supple. No nuchal rigidity. FROM. No mas ses. RESPIRATORY: Clear to auscultation. No wheezes. No rales. Normal respiratory effort. CARDIAC: Normal rate. Normal rhythm. No murmurs. No rubs. Extremities warm and well perfused. Pulses equal. No JVD. GI: Soft, non-distended. No tenderness to palpation. No rebound or guarding. No masses. RECTAL: Deferred. MUSCULOSKELETAL: Atraumatic. Chest examination reveals no tenderness. The back is symmetrical on inspection without obvious abnormality. There is no CVA tenderness to palpation. No joint edema. LOWER EXTREMITIES: The right calf is slightly larger than the left with chronic venous discoloration present. This is the site of the patient's prior cellulitis issue. Left lower extremity has warmth, erythema, and serous drainage present. This encompasses most of the tibia and fibula area. No fluctuance to suggest abscess. No purulent drainage. Concerning for cellulitis. NEURO: Normal sensorium. No sensory or motor deficits noted. SKIN: No rash or jaundice noted. Ramiro Beck MD Past Med/Surg History Medical History Anticoagulated on warfarin Cellulitis of leg, right Chronic back pain DVT (deep venous thrombosis) Factor V deficiency GERD (gastroesophageal reflux disease) Hematoma of right lower leg Kidney stone on left side Morbid obesity Narcotic dependence Thrombophlebitis of right saphenous vein Surgical History History of gastric bypass Social History Smoking Status: Former smoker Preferred Language: Syriac Communication Ability: Effective Extension Service Specialist Required: No Beliefs That Will Affect Care: None marital status: Single Current Living Situation: Spouse Current Living Situation Comment: boyfriend Feels Safe at Home: Yes Assistive Devices: CPAP Allergies Allergies Allergy/AdvReac Type Severity Reaction Status Date / Time latex Allergy Intermediate SKIN Verified 05/25/21 19:45 IRRITATION adhesive AdvReac Intermediate skin Verified 05/25/21 19:45 tearing NYLON STITCHES Allergy Mild erythema/pu Uncoded 05/25/21 19:45 s Home Meds Home Medications Medication Instructions Recorded Confirmed calcium carbonate 600 mg calcium 600 mg PO TID tab 06/29/19 05/25/21 (1,500 mg) tablet cyclobenzaprine 5 mg tablet 5 mg PO HS PRN tab 06/29/19 05/25/21 fluticasone propionate 50 2 sprays INTRANASAL DAILY gm 06/29/19 05/25/21 mcg/actuation nasal spray,suspension furosemide 20 mg tablet 20 mg PO QAM PRN tab 06/29/19 05/25/21 iron,carbonyl 65 mg-vitamin C 125 1 tab PO BID tab 06/29/19 05/25/21 mg tablet,delayed release (Vitron-C) levothyroxine 88 mcg tablet 88 mcg PO DAILYBB tab 06/29/19 05/25/21 omeprazole 20 mg tablet,delayed 40 mg PO QAM tab 06/29/19 05/25/21 release potassium gluconate 595 mg (99 mg) 595 mg PO HS PRN tab 06/29/19 05/25/21 tablet warfarin 10 mg tablet See Rx Instructions .ROUTE 06/29/19 05/25/21 .COMPLEX tab zolpidem 5 mg tablet (Ambien) 5 mg PO HS tab 06/29/19 05/25/21 duloxetine 60 mg capsule,delayed 60 mg PO QAM 06/14/20 05/25/21 release fexofenadine 60 mg-pseudoephedrine 1 tab PO Q12H PRN 06/14/20 05/25/21 ER 120 mg tablet,ext.release,12 hr (Ayde-D 12 Hour) folic acid 1 mg tablet 5 mg PO HS 06/14/20 05/25/21 bupropion HCl 150 mg tablet,12 hr See Rx Instructions .ROUTE .COMPLEX 04/09/21 05/25/21 sustained-release (Wellbutrin SR) oxybutynin chloride 5 mg 5 mg PO DAILY 04/09/21 05/25/21 tablet,extended release 24 hr (Ditropan XL) oxycodone-acetaminophen 10 mg-325 1 tab PO Q6H PRN 04/09/21 05/25/21 mg tablet doxycycline hyclate 100 mg capsule 100 mg PO DAILY 05/25/21 05/25/21 Results & Data (ED) Vital Signs Vital Signs - 24 hr 05/25/21 18:38 05/25/21 19:11 05/25/21 19:30 Temperature 38.2 C H Temperature Source Oral Pulse Rate 110 H 104 H 106 H Pulse Rate [Finger] Pulse Rate from SpO2 Sensor 103 H 105 H Pulse Rhythm [Finger] Pulse Strength [Finger] Respiratory Rate 22 25 H 19 Blood Pressure 121/70 Blood Pressure [Right Arm] Blood Pressure Mean 87 Blood Pressure Mean [Right Arm] Blood Pressure Position Sitting Blood Pressure Position [Right Arm] Pulse Oximetry 97 98 98 Oxygen Delivery Method Room Air Oxygen Flow Rate Sepsis Recent Fever Within 48 Hours Yes Sepsis New/Unexplained Change in Mental Status No Sepsis Action Taken by Nursing Physician Notified 05/25/21 21:28 05/25/21 21:29 05/25/21 21:30 Temperature Temperature Source Pulse Rate 98 H 97 H Pulse Rate [Finger] 97 H Pulse Rate from SpO2 Sensor 98 H 97 H Pulse Rhythm [Finger] Regular Pulse Strength [Finger] Normal Respiratory Rate 36 H 37 H Blood Pressure 98/43 L 82/59 L Blood Pressure [Right Arm] 98/43 L Blood Pressure Mean 61 66 Blood Pressure Mean [Right Arm] 61 Blood Pressure Position Blood Pressure Position [Right Arm] Semi-fowlers Pulse Oximetry 93 93 94 Oxygen Delivery Method Nasal Cannula Oxygen Flow Rate 2 Sepsis Recent Fever Within 48 Hours Sepsis New/Unexplained Change in Mental Status Sepsis Action Taken by Nursing 05/25/21 22:01 05/25/21 22:30 Temperature Temperature Source Pulse Rate 96 H 93 H Pulse Rate [Finger] Pulse Rate from SpO2 Sensor 93 H Pulse Rhythm [Finger] Pulse Strength [Finger] Respiratory Rate 36 H 35 H Blood Pressure 121/68 Blood Pressure [Right Arm] Blood Pressure Mean 85 Blood Pressure Mean [Right Arm] Blood Pressure Position Blood Pressure Position [Right Arm] Pulse Oximetry 92 Oxygen Delivery Method Oxygen Flow Rate Sepsis Recent Fever Within 48 Hours Sepsis New/Unexplained Change in Mental Status Sepsis Action Taken by Nursing Laboratory Data Result diagrams: 05/25/21 19:41 05/25/21 19:41 Lab Results 05/25/21 05/25/21 05/25/21 Range/Units 19:41 19:41 19:41 WBC 15.00 H (4.8-10.8) K/uL RBC 4.47 (4.2-5.4) M/uL Hgb 14.2 (12.0-16.0) g/dL Hct 43.0 (37-47) % MCV 96.2 (80-100) fL MCH 31.8 (25-34) pg MCHC 33.0 (32-36) g/dL RDW Std Deviation 50.3 H (36.4-46.3) fL RDW Coeff of Deandre 14.2 (11.5-14.5) % Plt Count 248 (130-400) K/uL MPV 9.6 (7.4-10.4) fL Immature Gran % (Auto) 0.3 % Neut % (Auto) 92.1 % Lymph % (Auto) 3.4 % Dooly % (Auto) 4.1 % Eos % (Auto) 0.0 % Baso % (Auto) 0.1 % Neut # (Auto) 13.82 H (1.4-6.5) K/uL Lymph # (Auto) 0.51 L (1.2-3.4) K/uL Dooly # (Auto) 0.61 H (0.11-0.59) K/uL Eos # (Auto) 0.00 (0-0.5) K/uL Baso # (Auto) 0.01 (0-0.2) K/uL Immature Gran # (Auto) 0.05 H (0.00-0.02) K/uL Sodium 137 (136-145) mmol/L Potassium 3.9 (3.5-5.1) mmol/L Chloride 105 (98-107) mmol/L Carbon Dioxide 27 (21-32) mmol/L Anion Gap 5.0 (3-11) BUN 13 (7-18) mg/dl Creatinine 0.93 (0.6-1.2) mg/dl Est Cr Clr Drug Dosing 127.6 ml/min Est GFR ( Amer) 81.3 ml/min Est GFR (Non-Af Amer) 70.2 ml/min BUN/Creatinine Ratio 13.7 (10-20) Glucose 98 (70-99) mg/dl Lactate 1.3 (0.4-2.0) mmol/L Calcium 8.8 (8.5-10.1) mg/dl Total Bilirubin 0.8 (0.2-1) mg/dl AST 19 (15-37) U/L ALT 18 (12-78) U/L Alkaline Phosphatase 77 (45-117) U/L Total Protein 7.6 (6.4-8.2) gm/dl Albumin 3.0 L (3.4-5.0) gm/dl Globulin 4.6 H (2.5-4.0) gm/dl Albumin/Globulin Ratio 0.7 L (0.9-2) COVID-19 Eval Order SARS-CoV-2 (PCR) (Negative) 05/25/21 05/25/21 Range/Units 19:44 19:44 WBC (4.8-10.8) K/uL RBC (4.2-5.4) M/uL Hgb (12.0-16.0) g/dL Hct (37-47) % MCV (80-100) fL MCH (25-34) pg MCHC (32-36) g/dL RDW Std Deviation (36.4-46.3) fL RDW Coeff of Deandre (11.5-14.5) % Plt Count (130-400) K/uL MPV (7.4-10.4) fL Immature Gran % (Auto) % Neut % (Auto) % Lymph % (Auto) % Dooly % (Auto) % Eos % (Auto) % Baso % (Auto) % Neut # (Auto) (1.4-6.5) K/uL Lymph # (Auto) (1.2-3.4) K/uL Dooly # (Auto) (0.11-0.59) K/uL Eos # (Auto) (0-0.5) K/uL Baso # (Auto) (0-0.2) K/uL Immature Gran # (Auto) (0.00-0.02) K/uL Sodium (136-145) mmol/L Potassium (3.5-5.1) mmol/L Chloride (98-107) mmol/L Carbon Dioxide (21-32) mmol/L Anion Gap (3-11) BUN (7-18) mg/dl Creatinine (0.6-1.2) mg/dl Est Cr Clr Drug Dosing ml/min Est GFR ( Amer) ml/min Est GFR (Non-Af Amer) ml/min BUN/Creatinine Ratio (10-20) Glucose (70-99) mg/dl Lactate (0.4-2.0) mmol/L Calcium (8.5-10.1) mg/dl Total Bilirubin (0.2-1) mg/dl AST (15-37) U/L ALT (12-78) U/L Alkaline Phosphatase (45-117) U/L Total Protein (6.4-8.2) gm/dl Albumin (3.4-5.0) gm/dl Globulin (2.5-4.0) gm/dl Albumin/Globulin Ratio (0.9-2) COVID-19 Eval Order Covid19 at [facility] SARS-CoV-2 (PCR) NEGATIVE (Negative) Administered Medications Hydromorphone HCl (Hydromorphone Inj 0.5 Mg/0.5 Ml Syr) 0.5 mg IV Q15M PRN PRN Reason: Pain Stop: 06/08/21 18:58 Last Admin: 05/25/21 22:22 Dose: 0.5 mg Documented by: [id number] Admin: 05/25/21 21:19 Dose: 0.5 mg Documented by: [id number] Admin: 05/25/21 19:35 Dose: 0.5 mg Documented by: [id number] Sodium Chloride (Nss 1000ml) 1,000 mls @ 125 mls/hr IV .Q8H STA Stop: 05/26/21 02:58 Last Admin: 05/25/21 20:00 Dose: 125 mls/hr Documented by: [id number] Discontinued Medications Acetaminophen (Acetaminophen 500 Mg Tab) 1,000 mg PO ONE STA Stop: 05/25/21 19:00 Last Admin: 05/25/21 19:35 Dose: 1,000 mg Documented by: [id number] Daptomycin 475 mg/ Syringe 9.5 mls @ 4.75 mls/min IV NOW STA; Protocol Stop: 05/25/21 19:00 Last Admin: 05/25/21 20:00 Dose: 4.75 mls/min Documented by: [id number] Cefepime HCl (Maxipime) 2,000 mg in 20 mls @ 5 mls/min IV NOW STA; Protocol Stop: 05/25/21 19:02 Last Admin: 05/25/21 19:48 Dose: 5 mls/min Documented by: [id number] Ondansetron HCl (Ondansetron Inj 2 Mg/Ml 2 Ml Vial) 4 mg IV NOW STA Stop: 05/25/21 19:00 Last Admin: 05/25/21 19:35 Dose: 4 mg Documented by: [id number] Discharge Plan Visit Data Chief Complaint: Leg Injury/Pain Stated Complaint: Leg Pain ED Provider: Ramiro Beck Discharge Problem: Cellulitis of leg, left, Leukocytosis Forms Stand Alone Forms: [facility] Prescriptions Prescriptions: No Action calcium carbonate 600 mg calcium (1,500 mg) tablet 600 mg PO TID RF: 0 warfarin 10 mg tablet See Rx Instructions .ROUTE .COMPLEX RF: 0 cyclobenzaprine 5 mg tablet 5 mg PO HS PRN (Reason: MUSCLE SPASMS) RF: 0 fluticasone propionate 50 mcg/actuation spray,suspension 2 sprays intranasal DAILY RF: 0 furosemide 20 mg tablet 20 mg PO QAM PRN (Reason: Fluid Retention or weight gain) RF: 0 levothyroxine 88 mcg tablet 88 mcg PO DAILYBB RF: 0 omeprazole 20 mg tablet,delayed release (DR/EC) 40 mg PO QAM RF: 0 potassium gluconate 595 mg (99 mg) tablet 595 mg PO HS PRN (Reason: .) RF: 0 Vitron-C 65 mg iron- 125 mg tablet,delayed release (DR/EC) 1 tab PO BID RF: 0 zolpidem [Ambien] 5 mg tablet 5 mg PO HS RF: 0 folic acid 1 mg Tablet 5 mg PO HS RF: 0 fexofenadine-pseudoephedrine [Ayde-D 12 Hour] 60-120 mg Tablet Extended Release 12 Hr 1 tab PO Q12H PRN (Reason: Allergy Symptoms) RF: 0 duloxetine 60 mg Capsule,Delayed Release(Dr/Ec) 60 mg PO QAM RF: 0 oxybutynin chloride [Ditropan XL] 5 mg tablet extended release 24hr 5 mg PO DAILY RF: 0 bupropion HCl [Wellbutrin SR] 150 mg tablet sustained-release 12 hr See Rx Instructions .ROUTE .COMPLEX RF: 0 oxycodone-acetaminophen 10-325 mg tablet 1 tab PO Q6H PRN (Reason: Severe Pain (Scale Score 7-10)) RF: 0 doxycycline hyclate 100 mg capsule 100 mg PO DAILY RF: 0 Referrals Referrals: Krzysztof Pickering MD [Primary Care Provider] -
[2021-05-25] MEDS ORDERED: PIPERACILL/TAZOBAC CONSULT ACTIVE PRN (23:45)
[2021-05-25] MEDS ORDERED: POLYETHYLENE (MIRALAX) 17 GM PACK PO PRN (23:45)
[2021-05-25] MEDS ORDERED: NITROGLYCERIN SL 0.4 MG/TAB TAB SL PRN (23:45)
[2021-05-25] MEDS ORDERED: FUROSEMIDE 20 MG TAB PO PRN (23:45)
[2021-05-25] MEDS ORDERED: NON-FORMULARY MEDICATION (Potassium Gluconate 595 mg (99 mg) tablet) PO PRN (23:45)
[2021-05-25] MEDS ORDERED: oxyCODONE/ACETAMINOPHEN 10-325 TAB PO PRN (23:45)
--- NOTE | 2021-05-25 23:56 | History and Physical Report ---
DATE OF ADMISSION: 05/25/2021. CHIEF COMPLAINT: Lower extremity cellulitis. HISTORY OF PRESENT ILLNESS: A 51-year-old female with past medical history significant for heterozygous MTHFR mutation, hypothyroidism, hyperparathyroidism secondary to vitamin D deficiency, allergic rhinitis, obstructive sleep apnea, nocturnal hypoxia, hypertension, osteoarthritis of knee, chronic bilateral low back pain with bilateral sciatica, chronic pain syndrome, depression, status post partial gastrectomy, history of thrombophlebitis, history of DVT, chronic insomnia, history of kidney stones. The patient lives at home with her boyfriend. Presents with lower extremity cellulitis. The patient was here in April with right lower extremity cellulitis and abscess, and at that time because of high surgical risk, she was transferred to [place] on 04/14/2021. She is status post IR drainage of the abscess and cultures growing Staphylococcus schleiferi, was treated with clindamycin and that has healed well. Now comes because of cellulitis of her left lower extremity. Since last Thursday, she noticed redness in the leg and having fevers. Was taking doxycycline as prescribed by the PCP, but it is not getting better, so she came here, and here she is spiking temperature of 38.2, blood pressure on the lower side. White count is 15. COVID is negative. The patient says she had COVID vaccine. Currently complaining of pain in the lower extremity and also shooting sciatic pain in the right lower extremity. She has a mild headache. No blurred visions, no earache, no runny nose, no sore throat, no cough. She was nauseous earlier, but okay now. No chest pain, no shortness of breath, no abdominal pain, no blood in the stools. Normal bladder movements. Ambulates without any support. ALLERGIES: LATEX, ADHESIVES, NYLON STITCHES. PAST MEDICAL HISTORY: As mentioned above. PAST SURGICAL HISTORY: Carpal tunnel surgery, colonoscopy, dilatation and curettage, EGDs, IR aspiration of the abscess of the right lower extremity, laparoscopic procedure of the liver, sleeve gastrectomy laparoscopy, jaw surgery for fitting of partial dentures. MEDICATIONS: The patient is on Wellbutrin 150 mg 2 tablets in the morning and 1 tablet in the afternoon, calcium carbonate 600 mg p.o. t.i.d., cyclobenzaprine 5 mg p.o. at bedtime p.r.n., doxycycline 100 mg p.o. daily, duloxetine 60 mg p.o. a.m., Ayde-D 1 tablet p.o. q.12 hours p.r.n., Flonase 50 two sprays intranasally daily p.r.n., folic acid 5 mg p.o. at bedtime, Lasix 20 mg p.o. daily p.r.n., Vitron-C 1 tablet p.o. b.i.d., levothyroxine 88 mcg p.o. daily, omeprazole 40 mg p.o. a.m., Ditropan XL 5 mg p.o. daily, oxycodone/acetaminophen 10/325 mg 1 tablet every 6 hours p.r.n. for pain, potassium gluconate 99 mg p.o. daily, warfarin as directed, zolpidem 5 mg p.o. at bedtime p.r.n. FAMILY HISTORY: Significant for mother has thyroid disorder, gastrointestinal disorder, diabetes; father has heart disorder; maternal grandmother has diabetes; paternal grandmother has diabetes; paternal grandfather has [place]; brother has quadruple bypass surgery, factor V Leiden deficiency and hypertension; sister has blood clots. SOCIAL HISTORY: Lives with her boyfriend. Former smoker, quit in 2000. Smoked half a pack for 2 years. No alcohol use. No drug use. REVIEW OF SYSTEMS: As per HPI. Rest of the review of systems is negative. PHYSICAL EXAMINATION: GENERAL: The patient is morbidly obese. VITAL SIGNS: Temperature 38.2, pulse 97, respiratory rate 19, blood pressure 98/43, oxygen 93% on 2 liters. HEENT: Pupils equal, round and reactive to light. Oral mucosa dry. NECK: No JVD. No neck masses. CARDIOVASCULAR: S1 and S2 heard. Regular rate and rhythm. No murmur, no gallop. RESPIRATORY SYSTEM: Normal AP diameter. No accessory muscle use. No wheezing, no crackles. ABDOMEN: Soft, bowel sounds present, nontender, no distention. CENTRAL NERVOUS SYSTEM: Alert and oriented. Speech is clear. No facial droop. Moves extremities. EXTREMITIES: Bilateral lower extremity gross edema present and the left lower extremity is erythematous in shins. LABORATORY DATA: WBC 15, hemoglobin 14.2, hematocrit 43, platelets 248. Sodium 137, potassium 3.9, chloride 105, bicarbonate 27, BUN 13, creatinine 0.9, glucose 98, lactate 1.3, calcium 8.8, total bilirubin 0.8, AST 19, ALT 18, alkaline phosphatase 77. SARS-CoV-2 PCR negative. ASSESSMENT AND PLAN: This is a 51-year-old female who presents with left lower extremity cellulitis. 1. Left lower extremity cellulitis: The patient had right lower extremity cellulitis and abscess that was drained in [place] and culture grew Staphylococcus schleiferi, treated with clindamycin. Right lower extremity infection has healed. Now presents with left lower extremity, failed treatment with doxycycline. We will empirically start her on daptomycin and Zosyn. Follow the response. We will place her on gentle fluids. Monitor in the med- telemetry. 2. Morbid obesity: Needs counseling. 3. Sleep apnea: Currently not using any CPAP or oxygen. Supposed to follow up with another sleep study as per patient. 4. History of hypothyroidism: Continue Synthroid. 5. Gastroesophageal reflux disease:. Continue omeprazole. 6. Chronic pain: Continue her home pain medications. 7. History of deep venous thrombosis and history of heterozygous MTHFR mutation: On Coumadin. Follow the PT/INR. 8. History of depression: On Cymbalta and Wellbutrin. 9. History of partial gastrectomy. 10. History of hypertension: Currently blood pressure is running on the lower side. We will monitor. 11. Deep venous thrombosis prophylaxis: On Coumadin. Follow the PT/INR. DISPOSITION: Closely monitor in the med-tele. Level 1 full code. Expect to discharge home and follow up with family doctor. PT/OT prior to discharge. Social service to help with discharge planning. Job ID: [id number] [facility]
[2021-05-26] MEDS: SODIUM CHLORIDE 0.9% 1000ML 1,000 ML IV SCH ×4 (00:05→23:51)
[2021-05-26] MEDS ORDERED: CYCLOBENZAPRINE HCL 10 MG TAB PO PRN (00:28)
[2021-05-26] MEDS ORDERED: PIPERACILLIN/TAZOBACTAM 4.5 GM in DEXTROSE 5% 100 ML IV ONE (00:30)
[2021-05-26] MEDS: ACETAMINOPHEN 325 MG TAB PO PRN ×3 (05:29→15:01)
[2021-05-26] MEDS: PIPERACILLIN/TAZOBACTAM 4.5 GM in DEXTROSE 5% 100 ML IV SCH ×3 (05:29→22:36)
[2021-05-26] MEDS: LEVOTHYROXINE SODIUM 88 MCG TABLET PO SCH (05:30)
[2021-05-26 05:44] LABS: Basophils # (auto) 0.01 K/uL (0-0.2); Basophils % (auto) 0.1 %; Hematocrit (blood only) 38.8 % (37-47); Immature Granulocytes # (auto) 0.09 K/uL (0.00-0.02); Immature Granulocytes % (auto) 0.5 %; Lymphocytes # (auto) 0.52 K/uL (1.2-3.4); Lymphocytes % (auto) 2.8 %; Mean Corpuscular Hemoglobin 32.6 pg (25-34); Mean Corpuscular Hgb Conc 33.5 g/dL (32-36); Mean Corpuscular Volume 97.2 fL (80-100); Mean Platelet Volume 9.7 fL (7.4-10.4); Monocytes # (auto) 0.55 K/uL (0.11-0.59); Neutrophils # (auto) 17.08 K/uL (1.4-6.5); Neutrophils % (auto) 93.6 %; Platelet Count 251 K/uL (130-400); RDW Coefficient of Variation 14.4 % (11.5-14.5); RDW Standard Deviation 51.5 fL (36.4-46.3); Red Blood Count 3.99 M/uL (4.2-5.4); White Blood Count 18.25 K/uL (4.8-10.8)
[2021-05-26 05:55] LABS: INR 2.5 (0.9-1.1); Prothrombin Time 23.6 Seconds (9.0-12.0)
[2021-05-26 06:14] LABS: BUN Creatinine Ratio 18.5 (10-20); Calcium 8.3 mg/dl (8.5-10.1); Creatinine Clr Calc Pharmacy 129.7 ml/min; Est GFR (African American) 83.5 ml/min; Magnesium 1.9 mg/dl (1.8-2.4); Potassium 4.1 mmol/L (3.5-5.1)
[2021-05-26] MEDS ORDERED: KETOROLAC 30 MG/ML VIAL IV ONE (06:21)
[2021-05-26] MEDS ORDERED: NON-FORMULARY MEDICATION (Iron,Carbonyl-Vitamin C [Vitron-C] 65 mg iron- 125 mg tablet,del PO SCH (09:00)
[2021-05-26] MEDS: DULoxetine HCL 60 MG CAP PO SCH (10:08)
[2021-05-26] MEDS: PANTOprazole 40 MG TAB PO SCH (10:08)
[2021-05-26] MEDS: OXYBUTYNIN CHLORIDE XL 5 MG TABCR PO SCH (10:08)
[2021-05-26] MEDS: buPROPion SR 150 MG TABCR PO SCH (10:08)
[2021-05-26] MEDS: CALCIUM CARBONATE 1250MG TAB PO SCH ×3 (10:08→20:50)
[2021-05-26] MEDS: FLUTICASONE PROPIONATE NA SPR 16 GM BTL SCH (10:09)
[2021-05-26] MEDS: [UNRECOGNIZED DRUG - OTHER] PO SCH (13:09)
--- NOTE | 2021-05-26 16:34 | Hospitalist Progress Note ---
Date of Service May 26, 2021 Assessment & Plan (1) Cellulitis of leg, left: Plan: Admitted with spreading cellulitis with lower leg wound on the left side since Thursday last Received outpatient doxycycline without any improvement Has been having fever with chills and white count is noted to be high at 18,000 Has been getting intravenous daptomycin and Zosyn Wound and blood cultures have been taken Wound care consult (2) Cellulitis of leg, right: Plan: Has had cellulitis of the right leg in April and required to be transferred to [place] on 04/14/2021 Required IR drainage for the fluid collection/abscess of the right leg Right leg is healed at this time (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 and INR is therapeutic (4) History of gastric bypass: Plan: No acute issue (5) Morbid obesity: Plan: Morbidly obese with sleep apnea not been using any CPAP and/or oxygen (6) Hypothyroidism: Plan: Continue supplement Other significant medical conditions including GERD, chronic pain, depression and hypertension remained stable Plan: Discussed with the daughter in detail Admission and Anticipated Discharge Date Admission Date: May 25, 2021 Subjective 05/26/2021 The patient was seen and examined in medical telemetry unit in presence of the daughter She was admitted with left leg cellulitis with a history of right leg cellulitis recently which required drainage's through IR intervention She has been having fever with chills and complains to have pain in the left leg Review of Systems Review of Systems: All systems reviewed and are unremarkable except as noted below Musculoskeletal: Pain in the left leg Physical Exam Physical Exam: Lying in bed comfortably . Constitutional: well developed, well nourished, + ill appearing and + morbidly obese Eyes: PERRL, conjunctivae normal, anicteric sclerae ENMT: external ear and nose normal, oropharynx normal Neck: trachea midline, no thyromegaly Respiratory: no respiratory distress and no cough Auscultation: lungs clear to auscultation bilaterally and + diminished lung sounds; no crackles and no wheezes Cardiovascular: Rate/Rhythm: regular rate and regular rhythm; not tachycardic Heart Sounds: normal S1 and normal S2; no murmur Gastrointestinal (Abdomen): Inspection/Auscultation: + abdomen distended and normal bowel sounds Percussion/Palpation: abdomen soft; abdomen nontender Musculoskeletal: No acute arthritis in any joint Left leg cellulitis with skin wound in the lower part [place] Neurologic: Alert, awake and oriented x3. No focal sensory and motor deficit appreciated Psychiatric: A+Ox3, euthymic affect Results & Data Results & Data ([facility]) Vital Signs (Past 12 Hours) Vital Signs Temp Pulse Resp BP Pulse Ox 05/26/21 15:00 37.7 C H 89 22 111/73 96 05/26/21 11:37 37.3 C 80 20 100/65 96 05/26/21 08:00 38.1 C H 90 20 118/65 94 05/26/21 06:19 38.4 C H 05/26/21 05:23 38.3 C H Laboratory Results Short CBC 05/25/21 05/26/21 Range/Units 19:41 05:20 WBC 15.00 H 18.25 H (4.8-10.8) K/uL Hgb 14.2 13.0 (12.0-16.0) g/dL Hct 43.0 38.8 (37-47) % Plt Count 248 251 (130-400) K/uL [facility] 05/25/21 05/26/21 19:41 05:20 Sodium 137 139 Potassium 3.9 4.1 Chloride 105 107 Carbon Dioxide 27 28 BUN 13 17 Creatinine 0.93 0.91 Glucose 98 88 Calcium 8.8 8.3 L Liver Function 05/25/21 Range/Units 19:41 Total Bilirubin 0.8 (0.2-1) mg/dl AST 19 (15-37) U/L ALT 18 (12-78) U/L Alkaline Phosphatase 77 (45-117) U/L Albumin 3.0 L (3.4-5.0) gm/dl Medications Administered Current Inpatient Medications Acetaminophen (Acetaminophen 325 Mg Tab) 650 mg PO Q4H PRN PRN Reason: Pain or Fever Stop: 06/24/21 23:44 Last Admin: 05/26/21 15:01 Dose: 650 mg Documented by: Bupropion HCl (W) 150 mg PO 1300 [facility] Stop: 06/25/21 12:59 Last Admin: 05/26/21 13:09 Dose: 150 mg Documented by: Bupropion HCl (Bupropion Sr 150 Mg Tabcr) 300 mg PO QAM [facility] Stop: 06/25/21 08:59 Last Admin: 05/26/21 10:08 Dose: 300 mg Documented by: Calcium Carbonate (Calcium Carbonate 1250mg Tab) 1,250 mg PO TID [facility] Stop: 06/25/21 08:59 Last Admin: 05/26/21 13:09 Dose: 1,250 mg Documented by: Cyclobenzaprine HCl (Cyclobenzaprine Hcl 10 Mg Tab) 5 mg PO HS PRN PRN Reason: MUSCLE SPASMS Stop: 06/25/21 00:27 Duloxetine HCl (Duloxetine Hcl 60 Mg Cap) 60 mg PO QAM [facility] Stop: 06/25/21 08:59 Last Admin: 05/26/21 10:08 Dose: 60 mg Documented by: Fexofenadine HCl (Fexofenadine 60 Mg Tab) 60 mg PO Q12H PRN PRN Reason: Allergy Symptoms Stop: 06/25/21 00:29 Fluticasone Propionate (Fluticasone Propionate Na Spr 16 Gm Btl) 2 sprays NA DAILY [facility] Stop: 06/25/21 08:59 Last Admin: 05/26/21 10:09 Dose: 2 sprays Documented by: Folic Acid (Folic Acid 1 Mg Tab) 5 mg PO HS [facility] Stop: 06/25/21 20:59 Furosemide (Furosemide 20 Mg Tab) 20 mg PO QAM PRN PRN Reason: Fluid Retention or weight gain Stop: 06/24/21 23:44 Last Admin: 05/26/21 10:08 Dose: 20 mg Documented by: Sodium Chloride (Nss 1000ml) 1,000 mls @ 125 mls/hr IV .Q8H [facility] Stop: 06/24/21 23:44 Last Admin: 05/26/21 15:58 Dose: 125 mls/hr Documented by: Piperacillin Sod/Tazobactam (Sod 4.5 gm/ Dextrose) 120 mls @ 30 mls/hr IV Q8H [facility]; Protocol Stop: 06/02/21 05:59 Last Admin: 05/26/21 13:08 Dose: 30 mls/hr Documented by: Daptomycin 475 mg/ Syringe 9.5 mls @ 4.75 mls/min IV Q24H [facility]; Protocol Stop: 06/02/21 19:59 Levothyroxine Sodium (Levothyroxine Sodium 88 Mcg Tablet) 88 mcg PO DAILYBB [facility] Stop: 06/25/21 06:29 Last Admin: 05/26/21 05:30 Dose: 88 mcg Documented by: Miscellaneous Information (Daptomycin Consult Active) 1 ea N/A UD PRN PRN Reason: Consult Stop: 06/24/21 18:58 Miscellaneous Information (Piperacill/Tazobac Consult Active) 1 ea N/A UD PRN PRN Reason: Consult Stop: 06/24/21 23:44 Nitroglycerin (Nitroglycerin Sl 0.4 Mg/Tab Tab) 0.4 mg SL UD PRN PRN Reason: Chest Pain Stop: 06/24/21 23:44 Ondansetron HCl (Ondansetron Inj 2 Mg/Ml 2 Ml Vial) 4 mg IV Q6H PRN PRN Reason: Nausea Stop: 06/24/21 23:44 Oxybutynin Chloride (Oxybutynin Chloride Xl 5 Mg Tabcr) 5 mg PO DAILY [facility] Stop: 06/25/21 08:59 Last Admin: 05/26/21 10:08 Dose: 5 mg Documented by: Oxycodone/Acetaminophen (Oxycodone/Acetaminophen 10-325 Tab) 1 tab PO Q6H PRN PRN Reason: Severe Pain (Scale Score 7-10) Stop: 06/08/21 23:44 Last Admin: 05/26/21 15:57 Dose: 1 tab Documented by: Pantoprazole Sodium (Pantoprazole 40 Mg Tab) 40 mg PO QAM [facility] Stop: 06/25/21 08:59 Last Admin: 05/26/21 10:08 Dose: 40 mg Documented by: Polyethylene Glycol (Polyethylene (Miralax) 17 Gm Pack) 17 gm PO DAILY PRN PRN Reason: Constipation Stop: 06/24/21 23:44 Warfarin Sodium (Warfarin Sod 10 Mg Tab) 10 mg PO SuTuThSa [facility] Stop: 06/25/21 20:59 Warfarin Sodium (Warfarin Sod 5 Mg Tab) 5 mg PO MoWeFr [facility] Stop: 06/26/21 20:59 Zolpidem Tartrate (Zolpidem Tartrate 5 Mg Tab) 5 mg PO HS [facility] Stop: 06/25/21 20:59
[2021-05-26] MEDS: DAPTOmycin 475 MG in SYRINGE 0 ML IV SCH (20:49)
[2021-05-26] MEDS: WARFARIN SOD 10 MG TAB PO SCH (20:50)
[2021-05-26] MEDS: FOLIC ACID 1 MG TAB PO SCH (20:50)
[2021-05-26] MEDS: ZOLPIDEM TARTRATE 5 MG TAB PO SCH (20:52)
[2021-05-26] MEDS: ACETAMINOPHEN 500 MG TAB PO PRN (23:53)
[2021-05-27] MEDS: oxyCODONE HCL IR 5 MG TAB (IMMEDIATE RELEASE) PO PRN ×2 (00:31→14:39)
[2021-05-27] MEDS: PIPERACILLIN/TAZOBACTAM 4.5 GM in DEXTROSE 5% 100 ML IV SCH ×3 (05:43→21:43)
[2021-05-27] MEDS: LEVOTHYROXINE SODIUM 88 MCG TABLET PO SCH (05:44)
[2021-05-27] MEDS: FLUTICASONE PROPIONATE NA SPR 16 GM BTL SCH (07:53)
[2021-05-27] MEDS: PANTOprazole 40 MG TAB PO SCH (07:53)
[2021-05-27] MEDS: DULoxetine HCL 60 MG CAP PO SCH (07:53)
[2021-05-27] MEDS: OXYBUTYNIN CHLORIDE XL 5 MG TABCR PO SCH (07:54)
[2021-05-27] MEDS: buPROPion SR 150 MG TABCR PO SCH (07:54)
[2021-05-27] MEDS: CALCIUM CARBONATE 1250MG TAB PO SCH ×3 (07:55→21:44)
[2021-05-27] MEDS: SODIUM CHLORIDE 0.9% 1000ML 1,000 ML IV SCH ×2 (07:57→16:13)
[2021-05-27] MEDS: ACETAMINOPHEN 500 MG TAB PO PRN ×2 (08:02→22:45)
[2021-05-27 08:58] LABS: Basophils # (auto) 0.01 K/uL (0-0.2); Basophils % (auto) 0.1 %; Eosinophils # (auto) 0.01 K/uL (0-0.5); Eosinophils % (auto) 0.1 %; Hematocrit (blood only) 36.5 % (37-47); Hemoglobin 11.9 g/dL (12.0-16.0); Immature Granulocytes # (auto) 0.04 K/uL (0.00-0.02); Immature Granulocytes % (auto) 0.3 %; Lymphocytes # (auto) 0.78 K/uL (1.2-3.4); Lymphocytes % (auto) 6.3 %; Mean Corpuscular Hemoglobin 31.7 pg (25-34); Mean Corpuscular Hgb Conc 32.6 g/dL (32-36); Mean Corpuscular Volume 97.3 fL (80-100); Mean Platelet Volume 9.6 fL (7.4-10.4); Monocytes # (auto) 0.65 K/uL (0.11-0.59); Monocytes % (auto) 5.2 %; Platelet Count 195 K/uL (130-400); RDW Coefficient of Variation 14.8 % (11.5-14.5); Red Blood Count 3.75 M/uL (4.2-5.4); White Blood Count 12.39 K/uL (4.8-10.8)
[2021-05-27 09:07] LABS: INR 3.2 (0.9-1.1); Prothrombin Time 29.9 Seconds (9.0-12.0)
[2021-05-27 09:29] LABS: Calcium 8.4 mg/dl (8.5-10.1); Creatinine Clr Calc Pharmacy 166.9 ml/min; Est GFR (African American) 112.7 ml/min; Est GFR (Non-African American) 97.2 ml/min; Potassium 3.7 mmol/L (3.5-5.1)
[2021-05-27] MEDS: [UNRECOGNIZED DRUG - OTHER] PO SCH (14:33)
--- NOTE | 2021-05-27 16:50 | Hospitalist Progress Note ---
Date of Service May 27, 2021 Assessment & Plan (1) Cellulitis of leg, left: Plan: Admitted with spreading cellulitis with lower leg wound on the left side since Thursday last Received outpatient doxycycline without any improvement Has been having fever with chills and white count is noted to be high at 18,000 Has been getting intravenous daptomycin and Zosyn Wound and blood cultures have been taken-pending results Wound care consult Clinically better Worsening back pain with radiation Will apply diclofenac cream locally (2) Cellulitis of leg, right: Plan: Has had cellulitis of the right leg in April and required to be transferred to [place] on 04/14/2021 Required IR drainage for the fluid collection/abscess of the right leg Right leg is healed at this time We will continue current antibiotic (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 and INR is therapeutic (4) History of gastric bypass: Plan: No acute issue (5) Morbid obesity: Plan: Morbidly obese with sleep apnea not been using any CPAP and/or oxygen (6) Hypothyroidism: Plan: Continue supplement Other significant medical conditions including GERD, chronic pain, depression and hypertension remained stable Plan: Discussed with the daughter in detail Admission and Anticipated Discharge Date Admission Date: May 25, 2021 Subjective 05/26/2021 The patient was seen and examined in medical telemetry unit in presence of the daughter She was admitted with left leg cellulitis with a history of right leg cellulitis recently which required drainage's through IR intervention She has been having fever with chills and complains to have pain in the left leg May 27, 2021 The patient was seen and examined in medical telemetry unit She has been feeling better but complains to have more pain at the back Denies any fever and/or chills Review of Systems Review of Systems: All systems reviewed and are unremarkable except as noted below Musculoskeletal: Pain in the left leg Physical Exam Physical Exam: Lying in bed comfortably . Constitutional: well developed, well nourished, + ill appearing and + morbidly obese Eyes: PERRL, conjunctivae normal, anicteric sclerae ENMT: external ear and nose normal, oropharynx normal Neck: trachea midline, no thyromegaly Respiratory: no respiratory distress and no cough Auscultation: lungs clear to auscultation bilaterally and + diminished lung sounds; no crackles and no wheezes Cardiovascular: Rate/Rhythm: regular rate and regular rhythm; not tachycardic Heart Sounds: normal S1 and normal S2; no murmur Gastrointestinal (Abdomen): Inspection/Auscultation: + abdomen distended and normal bowel sounds Percussion/Palpation: abdomen soft; abdomen nontender Musculoskeletal: No acute arthritis in any joint Skin: Has left leg cellulitis and leg wound the lower part of the leg Psychiatric: A+Ox3, euthymic affect Results & Data Results & Data ([facility]) Vital Signs (Past 12 Hours) Vital Signs Temp Pulse Pulse Resp BP Pulse Ox 05/27/21 16:02 37.6 C H 87 20 117/71 93 05/27/21 15:38 80 05/27/21 11:24 37 C 77 16 127/75 95 05/27/21 08:08 37.2 C 88 18 131/79 05/27/21 07:22 82 Laboratory Results Short CBC 05/27/21 Range/Units 08:40 WBC 12.39 H (4.8-10.8) K/uL Hgb 11.9 L (12.0-16.0) g/dL Hct 36.5 L (37-47) % Plt Count 195 (130-400) K/uL BMP 05/27/21 08:40 Sodium 136 Potassium 3.7 Chloride 103 Carbon Dioxide 26 BUN 16 Creatinine 0.71 Glucose 93 Calcium 8.4 L Cardiac Enzymes 05/27/21 Range/Units 08:40 Total Creatine Kinase 24 L (26-192) U/L Medications Administered Current Inpatient Medications Acetaminophen (Acetaminophen 500 Mg Tab) 1,000 mg PO Q6H PRN PRN Reason: Pain or Fever Stop: 06/24/21 23:44 Last Admin: 05/27/21 08:02 Dose: 1,000 mg Documented by: Bupropion HCl (W) 150 mg PO 1300 [facility] Stop: 06/25/21 12:59 Last Admin: 05/27/21 14:33 Dose: 150 mg Documented by: Bupropion HCl (Bupropion Sr 150 Mg Tabcr) 300 mg PO QAM [facility] Stop: 06/25/21 08:59 Last Admin: 05/27/21 07:54 Dose: 300 mg Documented by: Calcium Carbonate (Calcium Carbonate 1250mg Tab) 1,250 mg PO TID [facility] Stop: 06/25/21 08:59 Last Admin: 05/27/21 14:33 Dose: 1,250 mg Documented by: Cyclobenzaprine HCl (Cyclobenzaprine Hcl 10 Mg Tab) 5 mg PO HS PRN PRN Reason: MUSCLE SPASMS Stop: 06/25/21 00:27 Duloxetine HCl (Duloxetine Hcl 60 Mg Cap) 60 mg PO QAM [facility] Stop: 06/25/21 08:59 Last Admin: 05/27/21 07:53 Dose: 60 mg Documented by: Fexofenadine HCl (Fexofenadine 60 Mg Tab) 60 mg PO Q12H PRN PRN Reason: Allergy Symptoms Stop: 06/25/21 00:29 Fluticasone Propionate (Fluticasone Propionate Na Spr 16 Gm Btl) 2 sprays NA DAILY [facility] Stop: 06/25/21 08:59 Last Admin: 05/27/21 07:53 Dose: 2 sprays Documented by: Folic Acid (Folic Acid 1 Mg Tab) 5 mg PO HS [facility] Stop: 06/25/21 20:59 Last Admin: 05/26/21 20:50 Dose: 5 mg Documented by: Furosemide (Furosemide 20 Mg Tab) 20 mg PO QAM PRN PRN Reason: Fluid Retention or weight gain Stop: 06/24/21 23:44 Last Admin: 05/26/21 10:08 Dose: 20 mg Documented by: Sodium Chloride (Nss 1000ml) 1,000 mls @ 125 mls/hr IV .Q8H [facility] Stop: 06/24/21 23:44 Last Admin: 05/27/21 16:13 Dose: 125 mls/hr Documented by: Piperacillin Sod/Tazobactam (Sod 4.5 gm/ Dextrose) 120 mls @ 30 mls/hr IV Q8H [facility]; Protocol Stop: 06/02/21 05:59 Last Admin: 05/27/21 14:34 Dose: 30 mls/hr Documented by: Daptomycin 475 mg/ Syringe 9.5 mls @ 4.75 mls/min IV Q24H [facility]; Protocol Stop: 06/02/21 19:59 Last Admin: 05/26/21 20:49 Dose: 4.75 mls/min Documented by: Levothyroxine Sodium (Levothyroxine Sodium 88 Mcg Tablet) 88 mcg PO DAILYBB [facility] Stop: 06/25/21 06:29 Last Admin: 05/27/21 05:44 Dose: 88 mcg Documented by: Miscellaneous Information (Daptomycin Consult Active) 1 ea N/A UD PRN PRN Reason: Consult Stop: 06/24/21 18:58 Miscellaneous Information (Piperacill/Tazobac Consult Active) 1 ea N/A UD PRN PRN Reason: Consult Stop: 06/24/21 23:44 Nitroglycerin (Nitroglycerin Sl 0.4 Mg/Tab Tab) 0.4 mg SL UD PRN PRN Reason: Chest Pain Stop: 06/24/21 23:44 Ondansetron HCl (Ondansetron Inj 2 Mg/Ml 2 Ml Vial) 4 mg IV Q6H PRN PRN Reason: Nausea Stop: 06/24/21 23:44 Oxybutynin Chloride (Oxybutynin Chloride Xl 5 Mg Tabcr) 5 mg PO DAILY [facility] Stop: 06/25/21 08:59 Last Admin: 05/27/21 07:54 Dose: 5 mg Documented by: Oxycodone HCl (Oxycodone Hcl Ir 5 Mg Tab (Immediate Release)) 10 mg PO Q6H PRN PRN Reason: Pain Stop: 06/09/21 16:42 Last Admin: 05/27/21 14:39 Dose: 10 mg Documented by: Oxycodone/Acetaminophen (Oxycodone/Acetaminophen 10-325 Tab) 1 tab PO Q6H PRN PRN Reason: Severe Pain (Scale Score 7-10) Stop: 06/08/21 23:44 Last Admin: 05/26/21 15:57 Dose: 1 tab Documented by: Pantoprazole Sodium (Pantoprazole 40 Mg Tab) 40 mg PO QAM [facility] Stop: 06/25/21 08:59 Last Admin: 05/27/21 07:53 Dose: 40 mg Documented by: Polyethylene Glycol (Polyethylene (Miralax) 17 Gm Pack) 17 gm PO DAILY PRN PRN Reason: Constipation Stop: 06/24/21 23:44 Warfarin Sodium (Warfarin Sod 10 Mg Tab) 10 mg PO SuTuThSa [facility] Stop: 06/25/21 20:59 Last Admin: 05/26/21 20:50 Dose: 10 mg Documented by: Warfarin Sodium (Warfarin Sod 5 Mg Tab) 5 mg PO MoWeFr [facility] Stop: 06/26/21 20:59 Zolpidem Tartrate (Zolpidem Tartrate 5 Mg Tab) 5 mg PO HS [facility] Stop: 06/25/21 20:59 Last Admin: 05/26/21 20:52 Dose: Not Given Documented by:
[2021-05-27] MEDS ORDERED: WARFARIN SOD 5 MG TAB PO SCH (21:00)
[2021-05-27] MEDS: DAPTOmycin 475 MG in SYRINGE 0 ML IV SCH (21:21)
[2021-05-27] MEDS: ZOLPIDEM TARTRATE 5 MG TAB PO SCH (21:43)
[2021-05-27] MEDS: FOLIC ACID 1 MG TAB PO SCH (21:44)
[2021-05-27] MEDS: DICLOFENAC SOD 1% GEL 100 GM TUBE EXT SCH (21:45)
[2021-05-27] MEDS: FEXOFENADINE 60 MG TAB PO PRN (22:00)
[2021-05-28] MEDS: SODIUM CHLORIDE 0.9% 1000ML 1,000 ML IV SCH ×3 (00:19→16:34)
[2021-05-28] MEDS: LEVOTHYROXINE SODIUM 88 MCG TABLET PO SCH (05:46)
[2021-05-28] MEDS: PIPERACILLIN/TAZOBACTAM 4.5 GM in DEXTROSE 5% 100 ML IV SCH (05:47)
[2021-05-28 07:26] LABS: Basophils # (auto) 0.01 K/uL (0-0.2); Basophils % (auto) 0.1 %; Eosinophils # (auto) 0.06 K/uL (0-0.5); Eosinophils % (auto) 0.5 %; Hematocrit (blood only) 35.6 % (37-47); Hemoglobin 11.5 g/dL (12.0-16.0); Immature Granulocytes # (auto) 0.05 K/uL (0.00-0.02); Immature Granulocytes % (auto) 0.4 %; Lymphocytes # (auto) 0.84 K/uL (1.2-3.4); Lymphocytes % (auto) 7.5 %; Mean Corpuscular Hemoglobin 30.9 pg (25-34); Mean Corpuscular Hgb Conc 32.3 g/dL (32-36); Mean Corpuscular Volume 95.7 fL (80-100); Mean Platelet Volume 10.3 fL (7.4-10.4); Monocytes # (auto) 1.08 K/uL (0.11-0.59); Monocytes % (auto) 9.6 %; Neutrophils # (auto) 9.21 K/uL (1.4-6.5); Neutrophils % (auto) 81.9 %; Platelet Count 195 K/uL (130-400); RDW Coefficient of Variation 14.9 % (11.5-14.5); RDW Standard Deviation 51.9 fL (36.4-46.3); Red Blood Count 3.72 M/uL (4.2-5.4); White Blood Count 11.25 K/uL (4.8-10.8)
[2021-05-28 07:47] LABS: INR 4.6 (0.9-1.1); Prothrombin Time 41.4 Seconds (9.0-12.0)
[2021-05-28 08:08] LABS: Calcium 8.4 mg/dl (8.5-10.1); Est GFR (African American) 124.1 ml/min; Est GFR (Non-African American) 107.1 ml/min; Potassium 3.4 mmol/L (3.5-5.1)
[2021-05-28] MEDS: buPROPion SR 150 MG TABCR PO SCH (08:21)
[2021-05-28] MEDS: OXYBUTYNIN CHLORIDE XL 5 MG TABCR PO SCH (08:22)
[2021-05-28] MEDS: PANTOprazole 40 MG TAB PO SCH (08:22)
[2021-05-28] MEDS: DULoxetine HCL 60 MG CAP PO SCH (08:22)
[2021-05-28] MEDS: CALCIUM CARBONATE 1250MG TAB PO SCH ×3 (08:23→20:40)
[2021-05-28] MEDS: DICLOFENAC SOD 1% GEL 100 GM TUBE EXT SCH ×2 (08:23→20:41)
[2021-05-28] MEDS: FLUTICASONE PROPIONATE NA SPR 16 GM BTL SCH (08:24)
[2021-05-28] MEDS: oxyCODONE HCL IR 5 MG TAB (IMMEDIATE RELEASE) PO PRN (08:28)
[2021-05-28] MEDS ORDERED: POTASSIUM CHLORIDE CRTAB 20 MEQ TABCR PO STA (09:51)
[2021-05-28] MEDS: AMPICILLIN/SULBACTAM SOD 3,000 MG in 0.9 % SODIUM CHLORIDE 100 ML IV SCH ×2 (14:43→20:41)
[2021-05-28] MEDS: [UNRECOGNIZED DRUG - OTHER] PO SCH (14:44)
--- NOTE | 2021-05-28 17:27 | Hospitalist Progress Note ---
Date of Service May 28, 2021 Assessment & Plan (1) Cellulitis of leg, left: Plan: Admitted with spreading cellulitis with lower leg wound on the left side since Thursday last Received outpatient doxycycline without any improvement Has been having fever with chills and white count is noted to be high at 18,000 Has been getting intravenous daptomycin and Zosyn Wound and blood cultures have been taken-pending results Wound care consult Clinically better and she is out of bed on a chair Appreciate wound care consult and recommendation There is no significant ulceration of the skin -please look for the image of the wound in chart Worsening back pain with radiation Will apply diclofenac cream locally A little better (2) Cellulitis of leg, right: Plan: Has had cellulitis of the right leg in April and required to be transferred to [place] on 04/14/2021 Required IR drainage for the fluid collection/abscess of the right leg Right leg is healed at this time We will continue current antibiotic Antibiotic has been changed to Unasyn and will continue with oral Augmentin on discharge (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 and INR is therapeutic (4) History of gastric bypass: Plan: No acute issue (5) Morbid obesity: Plan: Morbidly obese with sleep apnea not been using any CPAP and/or oxygen (6) Hypothyroidism: Plan: Continue supplement Other significant medical conditions including GERD, chronic pain, depression and hypertension remained stable Plan: Discussed with the daughter in detail PT and OT evaluation-possible discharge tomorrow Admission and Anticipated Discharge Date Admission Date: May 25, 2021 Subjective 05/26/2021 The patient was seen and examined in medical telemetry unit in presence of the daughter She was admitted with left leg cellulitis with a history of right leg cellulitis recently which required drainage's through IR intervention She has been having fever with chills and complains to have pain in the left leg May 27, 2021 The patient was seen and examined in medical telemetry unit She has been feeling better but complains to have more pain at the back Denies any fever and/or chills 05/28/2021 The patient was seen and examined in medical telemetry unit She is out of bed on a chair The back pain is reasonably controlled Review of Systems Review of Systems: All systems reviewed and are unremarkable except as noted below Musculoskeletal: Pain in the left leg Physical Exam Physical Exam: Lying in bed comfortably . Constitutional: well developed, well nourished, + ill appearing and + morbidly obese Eyes: PERRL, conjunctivae normal, anicteric sclerae ENMT: external ear and nose normal, oropharynx normal Neck: trachea midline, no thyromegaly Respiratory: no respiratory distress and no cough Auscultation: lungs clear to auscultation bilaterally and + diminished lung sounds; no crackles and no wheezes Cardiovascular: Rate/Rhythm: regular rate and regular rhythm; not tachycardic Heart Sounds: normal S1 and normal S2; no murmur Gastrointestinal (Abdomen): Inspection/Auscultation: + abdomen distended and normal bowel sounds Percussion/Palpation: abdomen soft; abdomen nontender Musculoskeletal: No acute arthritis in any joint Skin: Please see the image of the wound. No significant skin break Psychiatric: A+Ox3, euthymic affect Results & Data Results & Data ([facility]) Vital Signs (Past 12 Hours) Vital Signs Temp Pulse Pulse Resp BP Pulse Ox 05/28/21 15:08 75 05/28/21 14:28 36.7 C 73 20 104/66 97 05/28/21 12:00 36.7 C 80 20 119/72 97 05/28/21 08:00 37.4 C 79 26 H 127/80 98 05/28/21 07:25 78 Laboratory Results Short CBC 05/28/21 Range/Units 06:55 WBC 11.25 H (4.8-10.8) K/uL Hgb 11.5 L (12.0-16.0) g/dL Hct 35.6 L (37-47) % Plt Count 195 (130-400) K/uL BMP 05/28/21 06:55 Sodium 138 Potassium 3.4 L Chloride 104 Carbon Dioxide 27 BUN 10 D Creatinine 0.55 L Glucose 79 Calcium 8.4 L Medications Administered Current Inpatient Medications Acetaminophen (Acetaminophen 500 Mg Tab) 1,000 mg PO Q6H PRN PRN Reason: Pain or Fever Stop: 06/24/21 23:44 Last Admin: 05/27/21 22:45 Dose: 1,000 mg Documented by: Bupropion HCl (W) 150 mg PO 1300 [facility] Stop: 06/25/21 12:59 Last Admin: 05/28/21 14:44 Dose: 150 mg Documented by: Bupropion HCl (Bupropion Sr 150 Mg Tabcr) 300 mg PO QAM [facility] Stop: 06/25/21 08:59 Last Admin: 05/28/21 08:21 Dose: 300 mg Documented by: Calcium Carbonate (Calcium Carbonate 1250mg Tab) 1,250 mg PO TID [facility] Stop: 06/25/21 08:59 Last Admin: 05/28/21 14:43 Dose: 1,250 mg Documented by: Cyclobenzaprine HCl (Cyclobenzaprine Hcl 10 Mg Tab) 5 mg PO HS PRN PRN Reason: MUSCLE SPASMS Stop: 06/25/21 00:27 Diclofenac Sodium (Diclofenac Sod 1% Gel 100 Gm Tube) 4 gm EXT BID [facility] Stop: 06/26/21 20:59 Last Admin: 05/28/21 08:23 Dose: 4 gm Documented by: Duloxetine HCl (Duloxetine Hcl 60 Mg Cap) 60 mg PO QAM [facility] Stop: 06/25/21 08:59 Last Admin: 05/28/21 08:22 Dose: 60 mg Documented by: Fexofenadine HCl (Fexofenadine 60 Mg Tab) 60 mg PO Q12H PRN PRN Reason: Allergy Symptoms Stop: 06/25/21 00:29 Last Admin: 05/27/21 22:00 Dose: 60 mg Documented by: Fluticasone Propionate (Fluticasone Propionate Na Spr 16 Gm Btl) 2 sprays NA DAILY [facility] Stop: 06/25/21 08:59 Last Admin: 05/28/21 08:24 Dose: 2 sprays Documented by: Folic Acid (Folic Acid 1 Mg Tab) 5 mg PO HS [facility] Stop: 06/25/21 20:59 Last Admin: 05/27/21 21:44 Dose: 5 mg Documented by: Furosemide (Furosemide 20 Mg Tab) 20 mg PO QAM PRN PRN Reason: Fluid Retention or weight gain Stop: 06/24/21 23:44 Last Admin: 05/26/21 10:08 Dose: 20 mg Documented by: Sodium Chloride (Nss 1000ml) 1,000 mls @ 125 mls/hr IV .Q8H [facility] Stop: 06/24/21 23:44 Last Admin: 05/28/21 16:34 Dose: 125 mls/hr Documented by: Ampicillin Sodium/Sulbactam Sodium 3,000 mg/ Sodium Chloride 108 mls @ 216 mls/hr IV Q6H [facility] Stop: 06/04/21 13:59 Last Infusion: 05/28/21 15:13 Dose: Infused Documented by: Levothyroxine Sodium (Levothyroxine Sodium 88 Mcg Tablet) 88 mcg PO DAILYBB [facility] Stop: 06/25/21 06:29 Last Admin: 05/28/21 05:46 Dose: 88 mcg Documented by: Nitroglycerin (Nitroglycerin Sl 0.4 Mg/Tab Tab) 0.4 mg SL UD PRN PRN Reason: Chest Pain Stop: 06/24/21 23:44 Ondansetron HCl (Ondansetron Inj 2 Mg/Ml 2 Ml Vial) 4 mg IV Q6H PRN PRN Reason: Nausea Stop: 06/24/21 23:44 Oxybutynin Chloride (Oxybutynin Chloride Xl 5 Mg Tabcr) 5 mg PO DAILY [facility] Stop: 06/25/21 08:59 Last Admin: 05/28/21 08:22 Dose: 5 mg Documented by: Oxycodone HCl (Oxycodone Hcl Ir 5 Mg Tab (Immediate Release)) 10 mg PO Q6H PRN PRN Reason: Pain Stop: 06/09/21 16:42 Last Admin: 05/28/21 08:28 Dose: 10 mg Documented by: Oxycodone/Acetaminophen (Oxycodone/Acetaminophen 10-325 Tab) 1 tab PO Q6H PRN PRN Reason: Severe Pain (Scale Score 7-10) Stop: 06/08/21 23:44 Last Admin: 05/26/21 15:57 Dose: 1 tab Documented by: Pantoprazole Sodium (Pantoprazole 40 Mg Tab) 40 mg PO QAM [facility] Stop: 06/25/21 08:59 Last Admin: 05/28/21 08:22 Dose: 40 mg Documented by: Polyethylene Glycol (Polyethylene (Miralax) 17 Gm Pack) 17 gm PO DAILY PRN PRN Reason: Constipation Stop: 06/24/21 23:44 Warfarin Sodium (Warfarin Sod 10 Mg Tab) 10 mg PO SuTuThSa [facility] Stop: 06/25/21 20:59 Last Admin: 05/26/21 20:50 Dose: 10 mg Documented by: Warfarin Sodium (Warfarin Sod 5 Mg Tab) 5 mg PO MoWeFr [facility] Stop: 06/26/21 20:59 Last Admin: 05/27/21 21:44 Dose: 5 mg Documented by: Zolpidem Tartrate (Zolpidem Tartrate 5 Mg Tab) 5 mg PO HS [facility] Stop: 06/25/21 20:59 Last Admin: 05/27/21 21:43 Dose: Not Given Documented by:
[2021-05-28] MEDS: ZOLPIDEM TARTRATE 5 MG TAB PO SCH (20:39)
[2021-05-28] MEDS: FOLIC ACID 1 MG TAB PO SCH (20:39)
[2021-05-29] MEDS: oxyCODONE HCL IR 5 MG TAB (IMMEDIATE RELEASE) PO PRN ×3 (00:13→20:44)
[2021-05-29] MEDS: SODIUM CHLORIDE 0.9% 1000ML 1,000 ML IV SCH ×3 (00:13→15:58)
[2021-05-29] MEDS: AMPICILLIN/SULBACTAM SOD 3,000 MG in 0.9 % SODIUM CHLORIDE 100 ML IV SCH ×4 (02:54→20:45)
[2021-05-29] MEDS: LEVOTHYROXINE SODIUM 88 MCG TABLET PO SCH (05:32)
[2021-05-29] MEDS: OXYBUTYNIN CHLORIDE XL 5 MG TABCR PO SCH (07:52)
[2021-05-29] MEDS: DULoxetine HCL 60 MG CAP PO SCH (07:52)
[2021-05-29] MEDS: buPROPion SR 150 MG TABCR PO SCH (07:53)
[2021-05-29] MEDS: CALCIUM CARBONATE 1250MG TAB PO SCH ×3 (07:54→20:35)
[2021-05-29] MEDS: PANTOprazole 40 MG TAB PO SCH (07:55)
[2021-05-29] MEDS: FLUTICASONE PROPIONATE NA SPR 16 GM BTL SCH (07:56)
[2021-05-29] MEDS: DICLOFENAC SOD 1% GEL 100 GM TUBE EXT SCH ×2 (07:57→20:33)
[2021-05-29 08:44] LABS: Basophils # (auto) 0.01 K/uL (0-0.2); Basophils % (auto) 0.1 %; Eosinophils # (auto) 0.12 K/uL (0-0.5); Eosinophils % (auto) 1.4 %; Hematocrit (blood only) 36.6 % (37-47); Hemoglobin 11.8 g/dL (12.0-16.0); Immature Granulocytes # (auto) 0.02 K/uL (0.00-0.02); Immature Granulocytes % (auto) 0.2 %; Lymphocytes % (auto) 10.8 %; Mean Corpuscular Hemoglobin 31.1 pg (25-34); Mean Corpuscular Hgb Conc 32.2 g/dL (32-36); Mean Corpuscular Volume 96.6 fL (80-100); Mean Platelet Volume 9.9 fL (7.4-10.4); Monocytes # (auto) 0.89 K/uL (0.11-0.59); Monocytes % (auto) 10.7 %; Neutrophils # (auto) 6.37 K/uL (1.4-6.5); Neutrophils % (auto) 76.8 %; Platelet Count 226 K/uL (130-400); RDW Coefficient of Variation 14.8 % (11.5-14.5); RDW Standard Deviation 52.8 fL (36.4-46.3); Red Blood Count 3.79 M/uL (4.2-5.4); White Blood Count 8.31 K/uL (4.8-10.8)
[2021-05-29 09:09] LABS: INR 3.9 (0.9-1.1); Prothrombin Time 35.3 Seconds (9.0-12.0)
[2021-05-29] MEDS: [UNRECOGNIZED DRUG - OTHER] PO SCH (13:32)
[2021-05-29] MEDS ORDERED: FUROSEMIDE 60 MG in SYRINGE 0 ML IV STA (15:44)
--- NOTE | 2021-05-29 17:23 | Hospitalist Progress Note ---
Date of Service May 29, 2021 Assessment & Plan (1) Cellulitis of leg, left: Plan: Admitted with spreading cellulitis with lower leg wound on the left side since Thursday last Received outpatient doxycycline without any improvement Has been having fever with chills and white count is noted to be high at 18,000 Has been getting intravenous daptomycin and Zosyn Wound and blood cultures have been taken-pending results Wound care consult Clinically better and she is out of bed on a chair Appreciate wound care consult and recommendation There is no significant ulceration of the skin -please look for the image of the wound in chart Leg seems to be more swollen-we will give 1 dose of intravenous Lasix Worsening back pain with radiation Will apply diclofenac cream locally A little better-not ready to be discharged (2) Cellulitis of leg, right: Plan: Has had cellulitis of the right leg in April and required to be transferred to [place] on 04/14/2021 Required IR drainage for the fluid collection/abscess of the right leg Right leg is healed at this time We will continue current antibiotic Antibiotic has been changed to Unasyn and will continue with oral Augmentin on discharge Worsened today (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 and INR is therapeutic (4) History of gastric bypass: Plan: No acute issue (5) Morbid obesity: Plan: Morbidly obese with sleep apnea not been using any CPAP and/or oxygen (6) Hypothyroidism: Plan: Continue supplement Other significant medical conditions including GERD, chronic pain, depression and hypertension remained stable Plan: Discussed with the daughter in detail PT and OT evaluation-possible discharge tomorrow Admission and Anticipated Discharge Date Admission Date: May 25, 2021 Subjective 05/26/2021 The patient was seen and examined in medical telemetry unit in presence of the daughter She was admitted with left leg cellulitis with a history of right leg cellulitis recently which required drainage's through IR intervention She has been having fever with chills and complains to have pain in the left leg May 27, 2021 The patient was seen and examined in medical telemetry unit She has been feeling better but complains to have more pain at the back Denies any fever and/or chills 05/28/2021 The patient was seen and examined in medical telemetry unit She is out of bed on a chair The back pain is reasonably controlled 05/29/2021 The patient was seen and examined in medical telemetry unit She has been feeling much better Her left leg is more swollen and looks more inflamed Review of Systems Review of Systems: All systems reviewed and are unremarkable except as noted below Musculoskeletal: Pain in the left leg Physical Exam Physical Exam: Lying in bed comfortably . Constitutional: well developed, well nourished, + ill appearing and + morbidly obese Eyes: PERRL, conjunctivae normal, anicteric sclerae ENMT: external ear and nose normal, oropharynx normal Neck: trachea midline, no thyromegaly Respiratory: no respiratory distress and no cough Auscultation: lungs clear to auscultation bilaterally and + diminished lung sounds; no crackles and no wheezes Cardiovascular: Rate/Rhythm: regular rate and regular rhythm; not tachycardic Heart Sounds: normal S1 and normal S2; no murmur Extremities: + edema (Bilateral leg edema up to 2 plus or more) Gastrointestinal (Abdomen): Inspection/Auscultation: + abdomen distended and normal bowel sounds Percussion/Palpation: abdomen soft; abdomen nontender Psychiatric: A+Ox3, euthymic affect Results & Data Results [facility] Vital Signs (Past 12 Hours) Vital Signs Temp Pulse Pulse Resp BP Pulse Ox 05/29/21 15:31 37.4 C 82 22 121/73 96 05/29/21 15:27 84 05/29/21 11:42 36.9 C 81 20 118/72 97 05/29/21 08:00 37.1 C 80 20 124/78 97 05/29/21 07:49 37.3 C 82 20 136/77 96 05/29/21 07:00 81 Laboratory Results Short CBC 05/29/21 Range/Units 08:22 WBC 8.31 (4.8-10.8) K/uL Hgb 11.8 L (12.0-16.0) g/dL Hct 36.6 L (37-47) % Plt Count 226 (130-400) K/uL Medications Administered Current Inpatient Medications Acetaminophen (Acetaminophen 500 Mg Tab) 1,000 mg PO Q6H PRN PRN Reason: Pain or Fever Stop: 06/24/21 23:44 Last Admin: 05/27/21 22:45 Dose: 1,000 mg Documented by: Bupropion HCl (W) 150 mg PO 1300 MICHELLE Stop: 06/25/21 12:59 Last Admin: 05/29/21 13:32 Dose: 150 mg Documented by: Bupropion HCl (Bupropion Sr 150 Mg Tabcr) 300 mg PO QAM MICHELLE Stop: 06/25/21 08:59 Last Admin: 05/29/21 07:53 Dose: 300 mg Documented by: Calcium Carbonate (Calcium Carbonate 1250mg Tab) 1,250 mg PO TID MICHELLE Stop: 06/25/21 08:59 Last Admin: 05/29/21 13:33 Dose: 1,250 mg Documented by: Cyclobenzaprine HCl (Cyclobenzaprine Hcl 10 Mg Tab) 5 mg PO HS PRN PRN Reason: MUSCLE SPASMS Stop: 06/25/21 00:27 Diclofenac Sodium (Diclofenac Sod 1% Gel 100 Gm Tube) 4 gm EXT BID MICHELLE Stop: 06/26/21 20:59 Last Admin: 05/29/21 07:57 Dose: 4 gm Documented by: Duloxetine HCl (Duloxetine Hcl 60 Mg Cap) 60 mg PO QAM MICHELLE Stop: 06/25/21 08:59 Last Admin: 05/29/21 07:52 Dose: 60 mg Documented by: Fexofenadine HCl (Fexofenadine 60 Mg Tab) 60 mg PO Q12H PRN PRN Reason: Allergy Symptoms Stop: 06/25/21 00:29 Last Admin: 05/27/21 22:00 Dose: 60 mg Documented by: Fluticasone Propionate (Fluticasone Propionate Na Spr 16 Gm Btl) 2 sprays NA DAILY MICHELLE Stop: 06/25/21 08:59 Last Admin: 05/29/21 07:56 Dose: 2 sprays Documented by: Folic Acid (Folic Acid 1 Mg Tab) 5 mg PO HS MICHELLE Stop: 06/25/21 20:59 Last Admin: 05/28/21 20:39 Dose: 5 mg Documented by: Furosemide (Furosemide 20 Mg Tab) 20 mg PO QAM PRN PRN Reason: Fluid Retention or weight gain Stop: 06/24/21 23:44 Last Admin: 05/26/21 10:08 Dose: 20 mg Documented by: Sodium Chloride (Nss 1000ml) 1,000 mls @ 125 mls/hr IV .Q8H MICHELLE Stop: 06/24/21 23:44 Last Admin: 05/29/21 15:58 Dose: 125 mls/hr Documented by: Ampicillin Sodium/Sulbactam Sodium 3,000 mg/ Sodium Chloride 108 mls @ 216 mls/hr IV Q6H [facility] Stop: 06/04/21 13:59 Last Infusion: 05/29/21 14:11 Dose: Infused Documented by: Levothyroxine Sodium (Levothyroxine Sodium 88 Mcg Tablet) 88 mcg PO DAILYBB [facility] Stop: 06/25/21 06:29 Last Admin: 05/29/21 05:32 Dose: 88 mcg Documented by: Nitroglycerin (Nitroglycerin Sl 0.4 Mg/Tab Tab) 0.4 mg SL UD PRN PRN Reason: Chest Pain Stop: 06/24/21 23:44 Ondansetron HCl (Ondansetron Inj 2 Mg/Ml 2 Ml Vial) 4 mg IV Q6H PRN PRN Reason: Nausea Stop: 06/24/21 23:44 Oxybutynin Chloride (Oxybutynin Chloride Xl 5 Mg Tabcr) 5 mg PO DAILY [facility] Stop: 06/25/21 08:59 Last Admin: 05/29/21 07:52 Dose: 5 mg Documented by: Oxycodone HCl (Oxycodone Hcl Ir 5 Mg Tab (Immediate Release)) 10 mg PO Q6H PRN PRN Reason: Pain Stop: 06/09/21 16:42 Last Admin: 05/29/21 11:46 Dose: 10 mg Documented by: Oxycodone/Acetaminophen (Oxycodone/Acetaminophen 10-325 Tab) 1 tab PO Q6H PRN PRN Reason: Severe Pain (Scale Score 7-10) Stop: 06/08/21 23:44 Last Admin: 05/26/21 15:57 Dose: 1 tab Documented by: Pantoprazole Sodium (Pantoprazole 40 Mg Tab) 40 mg PO QAM [facility] Stop: 06/25/21 08:59 Last Admin: 05/29/21 07:55 Dose: 40 mg Documented by: Polyethylene Glycol (Polyethylene (Miralax) 17 Gm Pack) 17 gm PO DAILY PRN PRN Reason: Constipation Stop: 06/24/21 23:44 Warfarin Sodium ([facility] Sod 10 Mg Tab) [facility] Stop: 06/25/21 20:59 Last Admin: 05/26/21 20:50 Dose: 10 mg Documented by: Warfarin Sodium (Warfarin Sod 5 Mg Tab) 5 mg PO MoWeFr [facility] Stop: 06/26/21 20:59 Last Admin: 05/27/21 21:44 Dose: 5 mg Documented by: Zolpidem Tartrate (Zolpidem Tartrate 5 Mg Tab) 5 mg PO [facility] Stop: 06/25/21 20:59 Last Admin: 05/28/21 20:39 Dose: Not Given Documented by:
[2021-05-29] MEDS: FOLIC ACID 1 MG TAB PO SCH (20:35)
[2021-05-29] MEDS: ZOLPIDEM TARTRATE 5 MG TAB PO SCH (20:44)
[2021-05-29] MEDS ORDERED: COUGH DROP (SUGAR FREE) LOZ 24 LOZ/1 BOX BUCCAL PRN (21:07)
[2021-05-30] MEDS: SODIUM CHLORIDE 0.9% 1000ML 1,000 ML IV SCH ×3 (00:02→16:32)
[2021-05-30] MEDS: AMPICILLIN/SULBACTAM SOD 3,000 MG in 0.9 % SODIUM CHLORIDE 100 ML IV SCH ×4 (01:40→19:19)
[2021-05-30] MEDS: LEVOTHYROXINE SODIUM 88 MCG TABLET PO SCH (06:29)
[2021-05-30 07:33] LABS: BUN Creatinine Ratio 10.8 (10-20); Calcium 8.2 mg/dl (8.5-10.1); Creatinine Clr Calc Pharmacy 256.5 ml/min; Est GFR (African American) 129.8 ml/min; Magnesium 1.7 mg/dl (1.8-2.4); Potassium 3.2 mmol/L (3.5-5.1)
[2021-05-30 07:34] LABS: INR 4.2 (0.9-1.1); Prothrombin Time 38.4 Seconds (9.0-12.0)
[2021-05-30] MEDS: OXYBUTYNIN CHLORIDE XL 5 MG TABCR PO SCH (08:07)
[2021-05-30] MEDS: PANTOprazole 40 MG TAB PO SCH (08:07)
[2021-05-30] MEDS: DULoxetine HCL 60 MG CAP PO SCH (08:08)
[2021-05-30] MEDS: buPROPion SR 150 MG TABCR PO SCH (08:10)
[2021-05-30] MEDS: DICLOFENAC SOD 1% GEL 100 GM TUBE EXT SCH ×2 (08:11→20:18)
[2021-05-30] MEDS: CALCIUM CARBONATE 1250MG TAB PO SCH ×3 (08:11→20:18)
[2021-05-30] MEDS: FLUTICASONE PROPIONATE NA SPR 16 GM BTL SCH (08:11)
[2021-05-30] MEDS: oxyCODONE HCL IR 5 MG TAB (IMMEDIATE RELEASE) PO PRN ×2 (08:21→19:16)
[2021-05-30] MEDS ORDERED: POTASSIUM CHLORIDE CRTAB 20 MEQ TABCR PO STA ×2 (09:16→14:03)
[2021-05-30] MEDS: [UNRECOGNIZED DRUG - OTHER] PO SCH (13:57)
[2021-05-30] MEDS ORDERED: FUROSEMIDE 60 MG in SYRINGE 0 ML IV ONE (17:45)
--- NOTE | 2021-05-30 18:13 | Hospitalist Progress Note ---
Date of Service May 30, 2021 Assessment & Plan (1) Cellulitis of leg, left: Plan: Admitted with spreading cellulitis with lower leg wound on the left side since Thursday last Received outpatient doxycycline without any improvement Has been having fever with chills and white count is noted to be high at 18,000 Has been getting intravenous daptomycin and Zosyn Wound and blood cultures have been taken-pending results Wound care consult Clinically better and she is out of bed on a chair Appreciate wound care consult and recommendation There is no significant ulceration of the skin -please look for the image of the wound in chart Leg seems to be more swollen-we will give 1 dose of intravenous Lasix She will get another dose of Lasix today Worsening back pain with radiation Will apply diclofenac cream locally A little better-not ready to be discharged (2) Cellulitis of leg, right: Plan: Has had cellulitis of the right leg in April and required to be transferred to [place] on 04/14/2021 Required IR drainage for the fluid collection/abscess of the right leg Right leg is healed at this time We will continue current antibiotic Antibiotic has been changed to Unasyn and will continue with oral Augmentin on discharge Worsened today and not getting any better If there is no improvement by tomorrow we will change antibiotic (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 and INR is therapeutic (4) History of gastric bypass: Plan: No acute issue (5) Morbid obesity: Plan: Morbidly obese with sleep apnea not been using any CPAP and/or oxygen (6) Hypothyroidism: Plan: Continue supplement Other significant medical conditions including GERD, chronic pain, depression and hypertension remained stable Plan: Discussed with the daughter in detail PT and OT evaluation-possible discharge tomorrow Admission and Anticipated Discharge Date Admission Date: May 25, 2021 Subjective 05/26/2021 The patient was seen and examined in medical telemetry unit in presence of the daughter She was admitted with left leg cellulitis with a history of right leg cellulitis recently which required drainage's through IR intervention She has been having fever with chills and complains to have pain in the left leg May 27, 2021 The patient was seen and examined in medical telemetry unit She has been feeling better but complains to have more pain at the back Denies any fever and/or chills 05/28/2021 The patient was seen and examined in medical telemetry unit She is out of bed on a chair The back pain is reasonably controlled 05/29/2021 The patient was seen and examined in medical telemetry unit She has been feeling much better Her left leg is more swollen and looks more inflamed 05/30/2021 The patient was seen and examined in medical telemetry unit She remains stable but her left leg cellulitis has not improved The skin popped and has been draining a little serosanguineous fluid No fever and no chills Review of Systems Review of Systems: All systems reviewed and are unremarkable except as noted below Musculoskeletal: Pain in the left leg Physical Exam Physical Exam: Lying in bed comfortably . Constitutional: well developed, well nourished, + ill appearing and + morbidly obese Eyes: PERRL, conjunctivae normal, anicteric sclerae ENMT: external ear and nose normal, oropharynx normal Neck: trachea midline, no thyromegaly Respiratory: no respiratory distress and no cough Auscultation: lungs clear to auscultation bilaterally and + diminished lung sounds; no crackles and no wheezes Cardiovascular: Rate/Rhythm: regular rate and regular rhythm; not tachycardic Heart Sounds: normal S1 and normal S2; no murmur Extremities: + edema (Bilateral leg edema up to 2 plus or more) Gastrointestinal (Abdomen): Inspection/Auscultation: + abdomen distended and normal bowel sounds Percussion/Palpation: abdomen soft; abdomen nontender Skin: Bilateral leg edema. Left leg cellulitis involving the whole of the left leg with a skin break at the medial aspect. Psychiatric: A+Ox3, euthymic affect Lymphatic: no cervical or axillary lymphadenopathy Results & Data Results & Data ([facility]) Vital Signs (Past 12 Hours) Vital Signs Temp Pulse Pulse Resp BP Pulse Ox 05/30/21 15:36 81 05/30/21 15:00 37.3 C 82 20 124/80 93 05/30/21 11:17 37.5 C 85 20 122/74 94 05/30/21 08:01 37.9 C H 87 20 143/78 H 94 05/30/21 07:17 87 Laboratory Results [facility] 05/30/21 06:33 Sodium 139 Potassium 3.2 L Chloride 104 Carbon Dioxide 26 BUN 5 L D Creatinine 0.48 L Glucose 77 Calcium 8.2 L Medications Administered Current Inpatient Medications Acetaminophen (Acetaminophen 500 Mg Tab) 1,000 mg PO Q6H PRN PRN Reason: Pain or Fever Stop: 06/24/21 23:44 Last Admin: 05/27/21 22:45 Dose: 1,000 mg Documented by: Bupropion HCl (W) 150 mg PO 1300 MICHELLE Stop: 06/25/21 12:59 Last Admin: 05/30/21 13:57 Dose: 150 mg Documented by: Bupropion HCl (Bupropion Sr 150 Mg Tabcr) 300 mg PO QAM MICHELLE Stop: 06/25/21 08:59 Last Admin: 05/30/21 08:10 Dose: 300 mg Documented by: Calcium Carbonate (Calcium Carbonate 1250mg Tab) 1,250 mg PO TID MICHELLE Stop: 06/25/21 08:59 Last Admin: 05/30/21 14:02 Dose: 1,250 mg Documented by: Cyclobenzaprine HCl (Cyclobenzaprine Hcl 10 Mg Tab) 5 mg PO HS PRN PRN Reason: MUSCLE SPASMS Stop: 06/25/21 00:27 Last Admin: 05/29/21 20:43 Dose: 5 mg Documented by: Diclofenac Sodium (Diclofenac Sod 1% Gel 100 Gm Tube) 4 gm EXT BID MICHELLE Stop: 06/26/21 20:59 Last Admin: 05/30/21 08:11 Dose: 4 gm Documented by: Duloxetine HCl (Duloxetine Hcl 60 Mg Cap) 60 mg PO QAM MICHELLE Stop: 06/25/21 08:59 Last Admin: 05/30/21 08:08 Dose: 60 mg Documented by: Fexofenadine HCl (Fexofenadine 60 Mg Tab) 60 mg PO Q12H PRN PRN Reason: Allergy Symptoms Stop: 06/25/21 00:29 Last Admin: 05/27/21 22:00 Dose: 60 mg Documented by: Fluticasone Propionate (Fluticasone Propionate Na Spr 16 Gm Btl) 2 sprays NA DAILY MICHELLE Stop: 06/25/21 08:59 Last Admin: 05/30/21 08:11 Dose: 2 sprays Documented by: Folic Acid (Folic Acid 1 Mg Tab) 5 mg PO HS MICHELLE Stop: 06/25/21 20:59 Last Admin: 05/29/21 20:35 Dose: 5 mg Documented by: Furosemide (Furosemide 20 Mg Tab) 20 mg PO QAM PRN PRN Reason: Fluid Retention or weight gain Stop: 06/24/21 23:44 Last Admin: 05/26/21 10:08 Dose: 20 mg Documented by: Sodium Chloride (Nss 1000ml) 1,000 mls @ 125 mls/hr IV .Q8H [facility] Stop: 06/24/21 23:44 Last Admin: 05/30/21 16:32 Dose: 125 mls/hr Documented by: Ampicillin Sodium/Sulbactam Sodium 3,000 mg/ Sodium Chloride 108 mls @ 216 mls/hr IV Q6H [facility] Stop: 06/04/21 13:59 Last Infusion: 05/30/21 14:30 Dose: Infused Documented by: Levothyroxine Sodium (Levothyroxine Sodium 88 Mcg Tablet) 88 mcg PO DAILYBB [facility] Stop: 06/25/21 06:29 Last Admin: 05/30/21 06:29 Dose: 88 mcg Documented by: Menthol (Cough Drop (Sugar Free) Aquiles 24 Aquiles/1 Box) 1 aquiles BUCCAL PRN PRN PRN Reason: Cough Stop: 06/28/21 21:06 Last Admin: 05/30/21 00:02 Dose: 1 aquiles Documented by: Nitroglycerin (Nitroglycerin Sl 0.4 Mg/Tab Tab) 0.4 mg SL UD PRN PRN Reason: Chest Pain Stop: 06/24/21 23:44 Ondansetron HCl (Ondansetron Inj 2 Mg/Ml 2 Ml Vial) 4 mg IV Q6H PRN PRN Reason: Nausea Stop: 06/24/21 23:44 Oxybutynin Chloride (Oxybutynin Chloride Xl 5 Mg Tabcr) 5 mg PO DAILY [facility] Stop: 06/25/21 08:59 Last Admin: 05/30/21 08:07 Dose: 5 mg Documented by: Oxycodone HCl (Oxycodone Hcl Ir 5 Mg Tab (Immediate Release)) 10 mg PO Q6H PRN PRN Reason: Pain Stop: 06/09/21 16:42 Last Admin: 05/30/21 08:21 Dose: 10 mg Documented by: Oxycodone/Acetaminophen (Oxycodone/Acetaminophen 10-325 Tab) 1 tab PO Q6H PRN PRN Reason: Severe Pain (Scale Score 7-10) Stop: 06/08/21 23:44 Last Admin: 05/26/21 15:57 Dose: 1 tab Documented by: Pantoprazole Sodium (Pantoprazole 40 Mg Tab) 40 mg PO QAM [facility] Stop: 06/25/21 08:59 Last Admin: 05/30/21 08:07 Dose: 40 mg Documented by: Polyethylene Glycol (Polyethylene (Miralax) 17 Gm Pack) 17 gm PO DAILY PRN PRN Reason: Constipation Stop: 06/24/21 23:44 Warfarin Sodium ([facility]in Sod 10 Mg Tab) [facility] Stop: 06/25/21 20:59 Last Admin: 05/26/21 20:50 Dose: 10 mg Documented by: Warfarin Sodium (Warfarin Sod 5 Mg Tab) 5 mg PO MoWeFr [facility] Stop: 06/26/21 20:59 Last Admin: 05/27/21 21:44 Dose: 5 mg Documented by: Zolpidem Tartrate (Zolpidem Tartrate 5 Mg Tab) 5 mg PO [facility] Stop: 06/25/21 20:59 Last Admin: 05/29/21 20:44 Dose: 5 mg Documented by:
[2021-05-30] MEDS: FOLIC ACID 1 MG TAB PO SCH (20:18)
[2021-05-30] MEDS: ZOLPIDEM TARTRATE 5 MG TAB PO SCH (20:20)
[2021-05-30] MEDS: ACETAMINOPHEN 500 MG TAB PO PRN (20:51)
[2021-05-31] MEDS: SODIUM CHLORIDE 0.9% 1000ML 1,000 ML IV SCH ×2 (00:24→09:08)
[2021-05-31] MEDS: AMPICILLIN/SULBACTAM SOD 3,000 MG in 0.9 % SODIUM CHLORIDE 100 ML IV SCH ×4 (02:58→20:17)
[2021-05-31] MEDS: LEVOTHYROXINE SODIUM 88 MCG TABLET PO SCH (06:12)
[2021-05-31 08:23] LABS: INR 4.8 (0.9-1.1); Prothrombin Time 42.6 Seconds (9.0-12.0)
[2021-05-31] MEDS: PANTOprazole 40 MG TAB PO SCH (09:06)
[2021-05-31] MEDS: DULoxetine HCL 60 MG CAP PO SCH (09:06)
[2021-05-31] MEDS: DICLOFENAC SOD 1% GEL 100 GM TUBE EXT SCH ×2 (09:06→20:09)
[2021-05-31] MEDS: OXYBUTYNIN CHLORIDE XL 5 MG TABCR PO SCH (09:06)
[2021-05-31] MEDS: FLUTICASONE PROPIONATE NA SPR 16 GM BTL SCH (09:06)
[2021-05-31] MEDS: CALCIUM CARBONATE 1250MG TAB PO SCH ×2 (09:06→13:00)
[2021-05-31] MEDS: buPROPion SR 150 MG TABCR PO SCH (09:06)
[2021-05-31 09:18] LABS: Basophils # (auto) 0.02 K/uL (0-0.2); Basophils % (auto) 0.2 %; Eosinophils # (auto) 0.18 K/uL (0-0.5); Eosinophils % (auto) 1.9 %; Hematocrit (blood only) 33.7 % (37-47); Immature Granulocytes # (auto) 0.13 K/uL (0.00-0.02); Immature Granulocytes % (auto) 1.4 %; Lymphocytes # (auto) 0.98 K/uL (1.2-3.4); Lymphocytes % (auto) 10.5 %; Mean Corpuscular Hemoglobin 31.2 pg (25-34); Mean Corpuscular Hgb Conc 32.6 g/dL (32-36); Mean Corpuscular Volume 95.5 fL (80-100); Mean Platelet Volume 10.3 fL (7.4-10.4); Monocytes # (auto) 1.23 K/uL (0.11-0.59); Monocytes % (auto) 13.2 %; Neutrophils % (auto) 72.8 %; Platelet Count 266 K/uL (130-400); RDW Standard Deviation 52.5 fL (36.4-46.3); Red Blood Count 3.53 M/uL (4.2-5.4); White Blood Count 9.34 K/uL (4.8-10.8)
[2021-05-31 09:25] LABS: BUN Creatinine Ratio 8.8 (10-20); Calcium 8.5 mg/dl (8.5-10.1); Creatinine Clr Calc Pharmacy 225.3 ml/min; Est GFR (African American) 124.9 ml/min; Est GFR (Non-African American) 107.7 ml/min; Potassium 3.2 mmol/L (3.5-5.1)
[2021-05-31] MEDS ORDERED: POTASSIUM CHLORIDE CRTAB 20 MEQ TABCR PO STA (10:53)
[2021-05-31] MEDS ORDERED: FUROSEMIDE 80 MG in SYRINGE 0 ML IV ONE (10:54)
[2021-05-31] MEDS: [UNRECOGNIZED DRUG - OTHER] PO SCH (12:02)
[2021-05-31] MEDS: oxyCODONE HCL IR 5 MG TAB (IMMEDIATE RELEASE) PO PRN ×2 (12:03→18:26)
[2021-05-31] MEDS: DAPTOmycin 475 MG in SYRINGE 0 ML IV SCH (12:58)
--- NOTE | 2021-05-31 17:57 | Hospitalist Progress Note ---
Date of Service May 31, 2021 Assessment & Plan (1) Cellulitis of leg, left: Plan: Admitted with spreading cellulitis with lower leg wound on the left side since Thursday last Received outpatient doxycycline without any improvement Has been having fever with chills and white count is noted to be high at 18,000 Has been getting intravenous daptomycin and Zosyn Wound and blood cultures have been taken-pending results Wound care consult Clinically better and she is out of bed on a chair Appreciate wound care consult and recommendation There is no significant ulceration of the skin -please look for the image of the wound in chart Received intravenous fluid in the remains not any better Will continue giving Lasix 80 mg daily for next 2 days Monitor PRP Colitis has not been improving Add intravenous daptomycin on top of Unasyn for staph coverage Worsening back pain with radiation Will apply diclofenac cream locally A little better-not ready to be discharged (2) Cellulitis of leg, right: Plan: Has had cellulitis of the right leg in April and required to be transferred to [place] on 04/14/2021 Required IR drainage for the fluid collection/abscess of the right leg Right leg is healed at this time We will continue current antibiotic Antibiotic has been changed to Unasyn and will continue with oral Augmentin on discharge Worsened today and not getting any better Daptomycin has been added (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 and INR is therapeutic (4) History of gastric bypass: Plan: No acute issue (5) Morbid obesity: Plan: Morbidly obese with sleep apnea not been using any CPAP and/or oxygen (6) Hypothyroidism: Plan: Continue supplement Other significant medical conditions including GERD, chronic pain, depression and hypertension remained stable Plan: Discussed with the daughter in detail PT and OT evaluation Not yet ready to be discharged Admission and Anticipated Discharge Date Admission Date: May 25, 2021 Subjective 05/26/2021 The patient was seen and examined in medical telemetry unit in presence of the daughter She was admitted with left leg cellulitis with a history of right leg cellulitis recently which required drainage's through IR intervention She has been having fever with chills and complains to have pain in the left leg May 27, 2021 The patient was seen and examined in medical telemetry unit She has been feeling better but complains to have more pain at the back Denies any fever and/or chills 05/28/2021 The patient was seen and examined in medical telemetry unit She is out of bed on a chair The back pain is reasonably controlled 05/29/2021 The patient was seen and examined in medical telemetry unit She has been feeling much better Her left leg is more swollen and looks more inflamed 05/30/2021 The patient was seen and examined in medical telemetry unit She remains stable but her left leg cellulitis has not improved The skin popped and has been draining a little serosanguineous fluid No fever and no chills 05/31/2021 The patient was seen and examined in medical telemetry unit Her leg is getting a little better but he still remains red and tense Denies any other significant symptoms Review of Systems Review of Systems: All systems reviewed and are unremarkable except as noted below Musculoskeletal: Pain in the left leg Physical Exam Physical Exam: Lying in bed comfortably . Constitutional: well developed, well nourished, + ill appearing and + morbidly obese Eyes: PERRL, conjunctivae normal, anicteric sclerae ENMT: external ear and nose normal, oropharynx normal Neck: trachea midline, no thyromegaly Respiratory: no respiratory distress and no cough Auscultation: lungs clear to auscultation bilaterally and + diminished lung sounds; no crackles and no wheezes Cardiovascular: Rate/Rhythm: regular rate and regular rhythm; not tachycardic Heart Sounds: normal S1 and normal S2; no murmur Extremities: + edema (Bilateral leg edema up to 2 plus or more) Gastrointestinal (Abdomen): Inspection/Auscultation: + abdomen distended and normal bowel sounds Percussion/Palpation: abdomen soft; abdomen nontender Musculoskeletal: No acute arthritis in any joint Skin: Left leg remains swollen. Redness involving the whole of the leg up to the knee, the redness seems to be improving Psychiatric: A+Ox3, euthymic affect Lymphatic: no cervical or axillary lymphadenopathy Results & Data Results & Data ([facility]) Vital Signs (Past 12 Hours) Vital Signs Temp Pulse Pulse Resp BP Pulse Ox 05/31/21 16:15 37.2 C 81 18 137/81 96 05/31/21 14:55 81 05/31/21 11:26 37.2 C 79 16 164/76 H 97 05/31/21 08:30 36.7 C 77 16 116/76 97 05/31/21 08:09 72 Laboratory Results Short CBC 08/27/21 Range/Units 07:44 WBC 9.34 (4.8-10.8) K/uL Hgb 11.0 L (12.0-16.0) g/dL Hct 33.7 L (37-47) % Plt Count 266 (130-400) K/uL BMP 05/31/21 07:44 Sodium 139 Potassium 3.2 L Chloride 106 Carbon Dioxide 28 BUN 5 L Creatinine 0.54 L Glucose 81 Calcium 8.5 Medications Administered Current Inpatient Medications Acetaminophen (Acetaminophen 500 Mg Tab) 1,000 mg PO Q6H PRN PRN Reason: Pain or Fever Stop: 06/24/21 23:44 Last Admin: 05/30/21 20:51 Dose: 1,000 mg Documented by: Bupropion HCl (W) 150 mg PO 1300 [facility] Stop: 06/25/21 12:59 Last Admin: 05/31/21 12:02 Dose: 150 mg Documented by: Bupropion HCl (Bupropion Sr 150 Mg Tabcr) 300 mg PO QAM [facility] Stop: 06/25/21 08:59 Last Admin: 05/31/21 09:06 Dose: 300 mg Documented by: Calcium Carbonate (Calcium Carbonate 1250mg Tab) 1,250 mg PO TID [facility] Stop: 06/25/21 08:59 Last Admin: 05/31/21 13:00 Dose: Not Given Documented by: Cyclobenzaprine HCl (Cyclobenzaprine Hcl 10 Mg Tab) 5 mg PO HS PRN PRN Reason: MUSCLE SPASMS Stop: 06/25/21 00:27 Last Admin: 05/29/21 20:43 Dose: 5 mg Documented by: Diclofenac Sodium (Diclofenac Sod 1% Gel 100 Gm Tube) 4 gm EXT BID [facility] Stop: 06/26/21 20:59 Last Admin: 05/31/21 09:06 Dose: 4 gm Documented by: Duloxetine HCl (Duloxetine Hcl 60 Mg Cap) 60 mg PO QAM [facility] Stop: 06/25/21 08:59 Last Admin: 05/31/21 09:06 Dose: 60 mg Documented by: Fexofenadine HCl (Fexofenadine 60 Mg Tab) 60 mg PO Q12H PRN PRN Reason: Allergy Symptoms Stop: 06/25/21 00:29 Last Admin: 05/27/21 22:00 Dose: 60 mg Documented by: Fluticasone Propionate (Fluticasone Propionate Na Spr 16 Gm Btl) 2 sprays NA DAILY [facility] Stop: 06/25/21 08:59 Last Admin: 05/31/21 09:06 Dose: 2 sprays Documented by: Folic Acid (Folic Acid 1 Mg Tab) 5 mg PO HS [facility] Stop: 06/25/21 20:59 Last Admin: 05/30/21 20:18 Dose: 5 mg Documented by: Furosemide (Furosemide 20 Mg Tab) 20 mg PO QAM PRN PRN Reason: Fluid Retention or weight gain Stop: 06/24/21 23:44 Last Admin: 05/26/21 10:08 Dose: 20 mg Documented by: Ampicillin Sodium/Sulbactam Sodium 3,000 mg/ Sodium Chloride 108 mls @ 216 mls/hr IV Q6H [facility] Stop: 06/04/21 13:59 Last Infusion: 05/31/21 14:48 Dose: Infused Documented by: Daptomycin 475 mg/ Syringe 9.5 mls @ 4.75 mls/min IV DAILY@1200 MICHELLE; Protocol Stop: 06/07/21 12:29 Last Admin: 05/31/21 12:58 Dose: 4.75 mls/min Documented by: Levothyroxine Sodium (Levothyroxine Sodium 88 Mcg Tablet) 88 mcg PO DAILYBB [facility] Stop: 06/25/21 06:29 Last Admin: 05/31/21 06:12 Dose: 88 mcg Documented by: Menthol (Cough Drop (Sugar Free) Aquiles 24 Aquiles/1 Box) 1 aquiles BUCCAL PRN PRN PRN Reason: Cough Stop: 06/28/21 21:06 Last Admin: 05/30/21 00:02 Dose: 1 aquiles Documented by: Miscellaneous Information (Daptomycin Consult Active) 1 ea N/A UD PRN PRN Reason: Consult Stop: 06/30/21 12:01 Nitroglycerin (Nitroglycerin Sl 0.4 Mg/Tab Tab) 0.4 mg SL UD PRN PRN Reason: Chest Pain Stop: 06/24/21 23:44 Ondansetron HCl (Ondansetron Inj 2 Mg/Ml 2 Ml Vial) 4 mg IV Q6H PRN PRN Reason: Nausea Stop: 06/24/21 23:44 Oxybutynin Chloride (Oxybutynin Chloride Xl 5 Mg Tabcr) 5 mg PO DAILY [facility] Stop: 06/25/21 08:59 Last Admin: 05/31/21 09:06 Dose: 5 mg Documented by: Oxycodone HCl (Oxycodone Hcl Ir 5 Mg Tab (Immediate Release)) 10 mg PO Q6H PRN PRN Reason: Pain Stop: 06/09/21 16:42 Last Admin: 05/31/21 12:03 Dose: 10 mg Documented by: Oxycodone/Acetaminophen (Oxycodone/Acetaminophen 10-325 Tab) 1 tab PO Q6H PRN PRN Reason: Severe Pain (Scale Score 7-10) Stop: 06/08/21 23:44 Last Admin: 05/26/21 15:57 Dose: 1 tab Documented by: Pantoprazole Sodium (Pantoprazole 40 Mg Tab) 40 mg PO QAM [facility] Stop: 06/25/21 08:59 Last Admin: 05/31/21 09:06 Dose: 40 mg Documented by: Polyethylene Glycol (Polyethylene (Miralax) 17 Gm Pack) 17 gm PO DAILY PRN PRN Reason: Constipation Stop: 06/24/21 23:44 Warfarin Sodium (Warfarin Sod 10 Mg Tab) 10 mg PO SuTuThSa [facility] Stop: 06/25/21 20:59 Last Admin: 05/26/21 20:50 Dose: 10 mg Documented by: Warfarin Sodium (Warfarin Sod 5 Mg Tab) 5 mg PO MoWeFr [facility] Stop: 06/26/21 20:59 Last Admin: 05/27/21 21:44 Dose: 5 mg Documented by: Zolpidem Tartrate (Zolpidem Tartrate 5 Mg Tab) 5 mg PO HS [facility] Stop: 06/25/21 20:59 Last Admin: 05/30/21 20:20 Dose: 5 mg Documented by:
[2021-05-31] MEDS: FOLIC ACID 1 MG TAB PO SCH (20:08)
[2021-05-31] MEDS: ZOLPIDEM TARTRATE 5 MG TAB PO SCH (20:17)
[2021-06-01] MEDS: oxyCODONE HCL IR 5 MG TAB (IMMEDIATE RELEASE) PO PRN ×4 (00:28→21:40)
[2021-06-01] MEDS: CALCIUM CARBONATE 1250MG TAB PO SCH ×4 (01:02→19:57)
[2021-06-01] MEDS: AMPICILLIN/SULBACTAM SOD 3,000 MG in 0.9 % SODIUM CHLORIDE 100 ML IV SCH ×4 (02:11→20:00)
[2021-06-01] MEDS: LEVOTHYROXINE SODIUM 88 MCG TABLET PO SCH (06:09)
[2021-06-01] MEDS: buPROPion SR 150 MG TABCR PO SCH (07:54)
[2021-06-01] MEDS: PANTOprazole 40 MG TAB PO SCH (07:55)
[2021-06-01] MEDS: DULoxetine HCL 60 MG CAP PO SCH (07:55)
[2021-06-01] MEDS: DICLOFENAC SOD 1% GEL 100 GM TUBE EXT SCH ×2 (07:56→19:58)
[2021-06-01] MEDS: OXYBUTYNIN CHLORIDE XL 5 MG TABCR PO SCH (07:56)
[2021-06-01] MEDS: FUROSEMIDE 60 MG in SYRINGE 0 ML IV SCH ×2 (07:57→10:22)
[2021-06-01] MEDS: FLUTICASONE PROPIONATE NA SPR 16 GM BTL SCH (07:58)
[2021-06-01 08:12] LABS: BUN Creatinine Ratio 8.6 (10-20); Calcium 8.7 mg/dl (8.5-10.1); Creatinine Clr Calc Pharmacy 251.2 ml/min; Est GFR (African American) 129.8 ml/min; Magnesium 1.8 mg/dl (1.8-2.4)
[2021-06-01 08:20] LABS: INR 4.5 (0.9-1.1); Prothrombin Time 40.8 Seconds (9.0-12.0)
[2021-06-01] MEDS: FEXOFENADINE 60 MG TAB PO PRN (10:21)
[2021-06-01] MEDS: POTASSIUM CHLORIDE / WTR 10 MEQ/100 ML PLCT IV SCH ×4 (10:22→18:02)
[2021-06-01] MEDS: [UNRECOGNIZED DRUG - OTHER] PO SCH (12:00)
[2021-06-01] MEDS: DAPTOmycin 475 MG in SYRINGE 0 ML IV SCH (12:29)
--- NOTE | 2021-06-01 15:13 | Hospitalist Progress Note ---
Date of Service June 01, 2021 Assessment & Plan (1) Cellulitis of leg, left: Plan: Admitted with spreading cellulitis with lower leg wound on the left side Received outpatient doxycycline without any improvement Has been having fever with chills and white count is noted to be high at 18,000 Currently on Daptomycin and Unasyn ---- WBC is improving Wound care on board Currently on lasix 60mg IV daily (home dose in 20mg daily) If cellulitis and INR improves tomorrow then will consider discharge on augmentin (2) Cellulitis of leg, right: Plan: Has had cellulitis of the right leg in April and required to be transferred to [place] on 04/14/2021 Required IR drainage for the fluid collection/abscess of the right leg Right leg is healed at this time We will continue current antibiotic Antibiotic has been changed to Unasyn and will continue with oral Augmentin on discharge (3) Factor V deficiency: Plan: Coumadin has been on hold since 05/28 due to supratherapeutic INR - 3.9>4.2>4.8>4.5 -will continue to hold Coumadin until < 4 ----- no acute bleeding (4) History of gastric bypass: Plan: No acute issue (5) Morbid obesity: Plan: Morbidly obese with sleep apnea not been using any CPAP and/or oxygen (6) Hypothyroidism: Plan: Continue supplement Other significant medical conditions including GERD, chronic pain, depression and hypertension remained stable Plan: PT and OT evaluation: pt did not participate in PT due to pain Admission and Anticipated Discharge Date Admission Date: May 25, 2021 Subjective Pt is a 51 y/o F with hx of heterozygous MTHFR mutation, hypothyroidism, hyperparathyroidism secondary to vitamin D deficiency, allergic rhinitis, obstructive sleep apnea, nocturnal hypoxia, hypertension, osteoarthritis of knee, chronic bilateral low back pain with bilateral sciatica, chronic pain syndrome, depression, status post partial gastrectomy, history of thrombophlebitis, history of DVT, chronic insomnia, history of kidney stones admitted for L leg cellulitis with blisters and open wound Today at bedside: - pt complained of L leg pain wandy with moving. Unable to ambulate due to the pain. Denied any SOB, CP, Abd pain, N/V. Review of Systems Review of Systems: At least 10 Review of systems were reviewed and all negative except as indicated in HPI Physical Exam Physical Exam: General:. NAD HEENT:. Normal Conjunctiva, EOMI B/L LE: - L LE: severe pitting edema with erythema, posterior leg blisters and 1 open wound, it is tender to palpate - R LE: venous stasis skin changes Psych:. AAOx3, normal affect Results & Data Results & Data ([facility]) Vital Signs (Past 12 Hours) Vital Signs Temp Pulse Pulse Resp BP BP Pulse Ox 06/01/21 14:51 37.6 C H 79 20 129/74 96 06/01/21 11:26 37.1 C 79 20 143/79 H 94 06/01/21 08:00 77 06/01/21 07:38 36.7 C 81 20 108/76 92 Laboratory Results [facility] 06/01/21 07:16 Sodium 137 Potassium 3.0 L Chloride 101 Carbon Dioxide 30 BUN 4 L Creatinine 0.48 L Glucose 79 Calcium 8.7
[2021-06-01] MEDS: FOLIC ACID 1 MG TAB PO SCH (20:02)
[2021-06-01] MEDS: ACETAMINOPHEN 500 MG TAB PO PRN (20:06)
[2021-06-01] MEDS: ZOLPIDEM TARTRATE 5 MG TAB PO SCH (20:06)
[2021-06-02] MEDS: oxyCODONE HCL IR 5 MG TAB (IMMEDIATE RELEASE) PO PRN ×3 (04:17→18:11)
[2021-06-02] MEDS: AMPICILLIN/SULBACTAM SOD 3,000 MG in 0.9 % SODIUM CHLORIDE 100 ML IV SCH ×4 (04:57→20:37)
[2021-06-02] MEDS: LEVOTHYROXINE SODIUM 88 MCG TABLET PO SCH (06:38)
[2021-06-02] MEDS: buPROPion SR 150 MG TABCR PO SCH (07:38)
[2021-06-02] MEDS: CALCIUM CARBONATE 1250MG TAB PO SCH ×3 (07:39→20:39)
[2021-06-02] MEDS: DULoxetine HCL 60 MG CAP PO SCH (07:40)
[2021-06-02] MEDS: OXYBUTYNIN CHLORIDE XL 5 MG TABCR PO SCH (07:40)
[2021-06-02] MEDS: PANTOprazole 40 MG TAB PO SCH (07:40)
[2021-06-02] MEDS: FUROSEMIDE 60 MG in SYRINGE 0 ML IV SCH (07:41)
[2021-06-02 07:48] LABS: INR 3.3 (0.9-1.1); Prothrombin Time 30.5 Seconds (9.0-12.0)
[2021-06-02 07:49] LABS: Basophils # (auto) 0.02 K/uL (0-0.2); Basophils % (auto) 0.2 %; Eosinophils # (auto) 0.21 K/uL (0-0.5); Eosinophils % (auto) 2.3 %; Hematocrit (blood only) 33.1 % (37-47); Hemoglobin 10.6 g/dL (12.0-16.0); Immature Granulocytes # (auto) 0.07 K/uL (0.00-0.02); Immature Granulocytes % (auto) 0.8 %; Lymphocytes # (auto) 1.02 K/uL (1.2-3.4); Mean Corpuscular Hemoglobin 30.4 pg (25-34); Mean Corpuscular Volume 94.8 fL (80-100); Mean Platelet Volume 9.9 fL (7.4-10.4); Monocytes # (auto) 1.32 K/uL (0.11-0.59); Monocytes % (auto) 14.2 %; Neutrophils # (auto) 6.67 K/uL (1.4-6.5); Neutrophils % (auto) 71.5 %; Platelet Count 358 K/uL (130-400); RDW Standard Deviation 52.1 fL (36.4-46.3); Red Blood Count 3.49 M/uL (4.2-5.4); White Blood Count 9.31 K/uL (4.8-10.8)
[2021-06-02] MEDS: ACETAMINOPHEN 500 MG TAB PO PRN ×2 (08:10→16:22)
[2021-06-02 08:22] LABS: BUN Creatinine Ratio 9.2 (10-20); Creatinine Clr Calc Pharmacy 219.3 ml/min; Est GFR (African American) 124.1 ml/min; Est GFR (Non-African American) 107.1 ml/min; Potassium 3.1 mmol/L (3.5-5.1)
[2021-06-02] MEDS: FLUTICASONE PROPIONATE NA SPR 16 GM BTL SCH (09:19)
[2021-06-02] MEDS: DICLOFENAC SOD 1% GEL 100 GM TUBE EXT SCH ×2 (09:19→20:41)
[2021-06-02] MEDS: POTASSIUM CHLORIDE / WTR 10 MEQ/100 ML PLCT IV SCH ×4 (10:42→14:59)
[2021-06-02] MEDS ORDERED: OPTIRAY 320 125ml IV ONE (11:16)
--- NOTE | 2021-06-02 11:39 | CT Scan Report ---
CT tib/fib LT w con HISTORY: Possible abscess. Left leg swelling. Left Leg cellulitis with minimal improvement TECHNIQUE: Multiaxial CT images of the left lower leg were performed following the intravenous demons tration of contrast COMPARISON STUDY: None. FINDINGS: No fracture or dislocation within the left tibia or fibula. There is moderate osteoarthriti s within the left knee. No bony destruction to suggest an osteomyelitis. Severe subcutaneous trace ed molly and skin thickening throughout the visualized left lower leg. However, no peripheral enhancing fl uid collections to suggest an abscess. There are few scattered punctate calcifications within the dis libia left lower leg which may be vascular. No abnormal enhancement or fluid collections within the mus cular compartments of the left lower leg. The calf vessels appear patent. Superficial varicosities ar e noted throughout the left lower leg. There appear to be small focal skin ulcerations within the med ial aspect of the left lower leg. IMPRESSION: Extensive subcutaneous edema and skin thickening within the left lower leg likely representing a cell ulitis. No peripheral enhancing fluid collections to suggest an abscess. ACT 112: Negative or not required by law. Electronically signed by: Sergio Meredith M.D. 06/02/2021 11:37 AM
[2021-06-02] MEDS: DAPTOmycin 475 MG in SYRINGE 0 ML IV SCH (12:27)
[2021-06-02] MEDS: [UNRECOGNIZED DRUG - OTHER] PO SCH (13:47)
--- NOTE | 2021-06-02 14:47 | Hospitalist Progress Note ---
Date of Service June 02, 2021 Assessment & Plan (1) Cellulitis of leg, left: Plan: Admitted with spreading cellulitis with lower leg wound on the left side Received outpatient doxycycline without any improvement Has been having fever with chills and white count is noted to be high at 18,000 Currently on Daptomycin and Unasyn ---- WBC is improvin.31<9.34 < 8 < 11 < 12 Wound care on board Currently on lasix 60mg IV daily (home dose in 20mg daily) No significant change in Swelling or Redness -- has been on daptomycin since 05/[address] leg w con today: Extensive subcutaneous edema and skin thickening within the left lower leg likely representing a cellulitis. No peripheral enhancing fluid collections to suggest an abscess. Wound culture pending (2) Supratherapeutic INR: Plan: Coumadin has been on hold since 05/28 due to supratherapeutic INR - 3.9>4.2>4.8>4.5 >3.3 - pt's home coumadin regimen: 5mg ,, and 10mg , , , - will give 5mg tonight and INR tomorrow ----- no acute bleeding (3) Iron deficiency anemia: Plan: per pt she has hx of iron def anemia - baseline hgb 11-14 - hgb trend: 10.6 < 11 < 11.8 < 11.5 - will start the pt on iron supplement - FOBT pending - pt already on PPI (4) Factor V deficiency: (5) History of gastric bypass: Plan: No acute issue (6) Morbid obesity: Plan: Morbidly obese with sleep apnea not been using any CPAP and/or oxygen (7) Hypothyroidism: Plan: Continue supplement Other significant medical conditions including GERD, chronic pain, depression and hypertension remained stable (8) Cellulitis of leg, right: Plan: Has had cellulitis of the right leg in April and required to be transferred to [place] on 04/14/2021 Required IR drainage for the fluid collection/abscess of the right leg Right leg is healed at this time We will continue current antibiotic Antibiotic has been changed to Unasyn and will continue with oral Augmentin on discharge Plan: PT and OT evaluation: pt did not participate in PT due to pain - pt does not want to go to rehab but okay with home PT/OT Admission and Anticipated Discharge Date Admission Date: May 25, 2021 Subjective Pt is a 51 y/o F with hx of heterozygous MTHFR mutation, hypothyroidism, hyperparathyroidism secondary to vitamin D deficiency, allergic rhinitis, obstructive sleep apnea, nocturnal hypoxia, hypertension, osteoarthritis of knee, chronic bilateral low back pain with bilateral sciatica, chronic pain syndrome, depression, status post partial gastrectomy, history of thrombophlebitis, history of DVT, chronic insomnia, history of kidney stones admitted for L leg cellulitis with blisters and open wound Today at bedside: - pt continues to complained of L leg pain wandy with moving. Unable to ambulate due to the pain but able to take few steps. Denied any SOB, CP, Abd pain, N/V. - does not want to go to a rehab but okay with getting home health or home PT/OT Review of Systems Review of Systems: all negative except as indicated in HPI Physical Exam Physical Exam: General:. NAD HEENT:. Normal Conjunctiva, EOMI Abd: obese abd, NT B/L LE: - L LE: severe pitting edema with erythema, posterior leg blisters and open wound, it is severely tender to palpate - R LE: venous stasis skin changes Psych:. AAOx3, normal affect Results & Data Results & Data ([facility]) Vital Signs (Past 12 Hours) Vital Signs Temp Pulse Pulse Resp BP Pulse Ox 06/02/21 11:05 36.8 C 78 20 117/72 94 06/02/21 07:30 36.9 C 80 20 139/78 94 06/02/21 07:00 80 06/02/21 06:11 80 Laboratory Results Short CBC 06/02/21 Range/Units 07:08 WBC 9.31 (4.8-10.8) K/uL Hgb 10.6 L (12.0-16.0) g/dL Hct 33.1 L (37-47) % Plt Count 358 (130-400) K/uL BMP 06/02/21 07:08 Sodium 137 Potassium 3.1 L Chloride 100 Carbon Dioxide 30 BUN 5 L Creatinine 0.55 L Glucose 84 Calcium 9.0
[2021-06-02] MEDS ORDERED: WARFARIN SOD 5 MG TAB PO ONE (16:00)
[2021-06-02] MEDS: WARFARIN SOD 10 MG TAB PO SCH (20:38)
[2021-06-02] MEDS: FOLIC ACID 1 MG TAB PO SCH (20:39)
[2021-06-02] MEDS: FERROUS SULFATE 325 MG TAB PO SCH (20:40)
[2021-06-02] MEDS: ZOLPIDEM TARTRATE 5 MG TAB PO SCH (20:43)
[2021-06-03] MEDS: oxyCODONE HCL IR 5 MG TAB (IMMEDIATE RELEASE) PO PRN ×4 (01:08→20:06)
[2021-06-03] MEDS: AMPICILLIN/SULBACTAM SOD 3,000 MG in 0.9 % SODIUM CHLORIDE 100 ML IV SCH ×4 (01:08→21:13)
[2021-06-03] MEDS: ACETAMINOPHEN 500 MG TAB PO PRN ×3 (04:26→19:14)
[2021-06-03] MEDS: LEVOTHYROXINE SODIUM 88 MCG TABLET PO SCH (05:37)
[2021-06-03 07:33] LABS: Basophils # (auto) 0.02 K/uL (0-0.2); Basophils % (auto) 0.2 %; Eosinophils # (auto) 0.16 K/uL (0-0.5); Eosinophils % (auto) 1.6 %; Hematocrit (blood only) 32.3 % (37-47); Hemoglobin 10.6 g/dL (12.0-16.0); Immature Granulocytes # (auto) 0.07 K/uL (0.00-0.02); Immature Granulocytes % (auto) 0.7 %; Lymphocytes # (auto) 1.24 K/uL (1.2-3.4); Lymphocytes % (auto) 12.6 %; Mean Corpuscular Hemoglobin 31.1 pg (25-34); Mean Corpuscular Hgb Conc 32.8 g/dL (32-36); Mean Corpuscular Volume 94.7 fL (80-100); Mean Platelet Volume 9.8 fL (7.4-10.4); Monocytes # (auto) 1.17 K/uL (0.11-0.59); Monocytes % (auto) 11.9 %; Neutrophils # (auto) 7.18 K/uL (1.4-6.5); Platelet Count 388 K/uL (130-400); RDW Coefficient of Variation 14.9 % (11.5-14.5); RDW Standard Deviation 51.3 fL (36.4-46.3); Red Blood Count 3.41 M/uL (4.2-5.4); White Blood Count 9.84 K/uL (4.8-10.8)
[2021-06-03 07:56] LABS: INR 4.8 (0.9-1.1)
[2021-06-03 08:08] LABS: Calcium 8.5 mg/dl (8.5-10.1); Creatinine Clr Calc Pharmacy 262.1 ml/min; Est GFR (African American) 131.6 ml/min; Est GFR (Non-African American) 113.6 ml/min; Potassium 3.1 mmol/L (3.5-5.1)
[2021-06-03] MEDS: OXYBUTYNIN CHLORIDE XL 5 MG TABCR PO SCH (08:51)
[2021-06-03] MEDS: buPROPion SR 150 MG TABCR PO SCH (08:51)
[2021-06-03] MEDS: DULoxetine HCL 60 MG CAP PO SCH (08:51)
[2021-06-03] MEDS: CALCIUM CARBONATE 1250MG TAB PO SCH ×3 (08:51→20:07)
[2021-06-03] MEDS: FERROUS SULFATE 325 MG TAB PO SCH ×2 (08:52→20:07)
[2021-06-03] MEDS: PANTOprazole 40 MG TAB PO SCH (08:52)
[2021-06-03] MEDS: FLUTICASONE PROPIONATE NA SPR 16 GM BTL SCH (08:53)
[2021-06-03] MEDS: DICLOFENAC SOD 1% GEL 100 GM TUBE EXT SCH ×2 (08:53→20:07)
[2021-06-03] MEDS: ONDANSETRON INJ 2 MG/ML 2 ML VIAL IV PRN (09:48)
[2021-06-03] MEDS: [UNRECOGNIZED DRUG - OTHER] PO SCH (12:34)
[2021-06-03] MEDS: DAPTOmycin 475 MG in SYRINGE 0 ML IV SCH (12:38)
--- NOTE | 2021-06-03 13:02 | Hospitalist Progress Note ---
Date of Service June 03, 2021 Assessment & Plan (1) Cellulitis of leg, left: Plan: Admitted with spreading cellulitis with lower leg wound on the left side Received outpatient doxycycline without any improvement Has been having fever with chills and white count is noted to be high at 18,000 Currently on Daptomycin and Unasyn. Currenty she remains afebrile and WBC is WNL. However, LLE erythema still persistent. Will give IV lasix [address] leg w con: Extensive subcutaneous edema and skin thickening within the left lower leg likely representing a cellulitis. No peripheral enhancing fluid collections to suggest an abscess. Wound culture negative thus far. On Roxicodone 10 mg Q6H PRN for pain control. (2) Supratherapeutic INR: Plan: Coumadin has been on hold since 05/28 due to supratherapeutic INR INR today at 4.8; continue holding coumadin. (3) Iron deficiency anemia: Plan: per pt she has hx of iron def anemia - baseline hgb 11-14 - hgb trend: 10.6 < 11 < 11.8 < 11.5 - c/w iron supplement - FOBT pending - pt already on PPI (4) Factor V deficiency: (5) History of gastric bypass: Plan: No acute issue (6) Morbid obesity: Plan: Morbidly obese with sleep apnea not been using any CPAP and/or oxygen (7) Hypothyroidism: Plan: Continue supplement Other significant medical conditions including GERD, chronic pain, depression and hypertension remained stable (8) Cellulitis of leg, right: Plan: Has had cellulitis of the right leg in April and required to be transferred to [place] on 04/14/2021 Required IR drainage for the fluid collection/abscess of the right leg Right leg is healed at this time We will continue current antibiotic Antibiotic has been changed to Unasyn and will continue with oral Augmentin on discharge Plan: PT and OT evaluation when patient can - pt does not want to go to rehab but okay with home PT/OT Admission and Anticipated Discharge Date Admission Date: May 25, 2021 Subjective Patient was very tearful this morning. Reports she is having excruciating left lower extremity pain. Reports it is hurting her even with movement. Was not able to sleep that well last night. Denies any chest pain or shortness of breath. Denies any abdominal pain, diarrhea or dysuria. Denies any nausea or vomiting. Rest of the review of system is negative. Review of Systems Review of Systems: All systems reviewed & are unremarkable except as noted in HPI & below Physical Exam Physical Exam: General: A&Ox3 HENT: NCAT, MMM, EOMI Eyes: PERRLA Neck: Supple, normal range of motion CVS: normal rate and rhythm Resp: b/l good breath sounds Abdomen: Soft, ND/NT Extremities: LLE is swollen, erythematous, warm to touch Neuro: face symmetric, no focal deficit Skin: warm and dry, no rashes/lesions/errythema MSK: normal ROM, no joint swelling/erythema Results & Data Results & Data ([facility]) Vital Signs (Past 12 Hours) Vital Signs Temp Pulse Pulse Resp BP Pulse Ox 06/03/21 11:38 37.1 C 81 20 99/65 L 93 06/03/21 08:00 78 06/03/21 07:52 37.0 C 75 20 120/81 92 06/03/21 03:13 36.9 C 88 18 116/70 94
[2021-06-03] MEDS: FOLIC ACID 1 MG TAB PO SCH (20:07)
[2021-06-03] MEDS: ZOLPIDEM TARTRATE 5 MG TAB PO SCH (21:14)
[2021-06-04] MEDS: oxyCODONE HCL IR 5 MG TAB (IMMEDIATE RELEASE) PO PRN ×4 (02:34→20:31)
[2021-06-04] MEDS: AMPICILLIN/SULBACTAM SOD 3,000 MG in 0.9 % SODIUM CHLORIDE 100 ML IV SCH ×4 (02:35→20:44)
[2021-06-04] MEDS: LEVOTHYROXINE SODIUM 88 MCG TABLET PO SCH (06:41)
[2021-06-04] MEDS: FLUTICASONE PROPIONATE NA SPR 16 GM BTL SCH (08:03)
[2021-06-04] MEDS: OXYBUTYNIN CHLORIDE XL 5 MG TABCR PO SCH (08:03)
[2021-06-04] MEDS: FERROUS SULFATE 325 MG TAB PO SCH ×2 (08:03→20:31)
[2021-06-04] MEDS: buPROPion SR 150 MG TABCR PO SCH (08:03)
[2021-06-04] MEDS: DULoxetine HCL 60 MG CAP PO SCH (08:03)
[2021-06-04] MEDS: DICLOFENAC SOD 1% GEL 100 GM TUBE EXT SCH ×2 (08:03→20:31)
[2021-06-04] MEDS: PANTOprazole 40 MG TAB PO SCH (08:03)
[2021-06-04] MEDS: CALCIUM CARBONATE 1250MG TAB PO SCH ×3 (08:03→20:32)
[2021-06-04 08:42] LABS: Prothrombin Time 63.1 Seconds (9.0-12.0)
[2021-06-04 08:58] LABS: INR 7.3 (0.9-1.1)
[2021-06-04] MEDS ORDERED: PHYTONADIONE 5 MG TAB PO STA (09:07)
[2021-06-04 09:35] LABS: Albumin Level 1.7 gm/dl (3.4-5.0); BUN Creatinine Ratio 9.2 (10-20); Calcium 8.5 mg/dl (8.5-10.1); Creatinine Clr Calc Pharmacy 197.4 ml/min; Est GFR (Non-African American) 103.5 ml/min; Potassium 3.6 mmol/L (3.5-5.1)
[2021-06-04 09:41] LABS: Albumin Globulin Ratio 0.3 (0.9-2); Bilirubin,Total 0.4 mg/dl (0.2-1); Globulin 5.2 gm/dl (2.5-4.0); Total Protein 6.9 gm/dl (6.4-8.2)
[2021-06-04] MEDS: DAPTOmycin 475 MG in SYRINGE 0 ML IV SCH (11:21)
--- NOTE | 2021-06-04 13:06 | Hospitalist Progress Note ---
Date of Service June 04, 2021 Assessment & Plan (1) Cellulitis of leg, left: Plan: Admitted with spreading cellulitis with lower leg wound on the left side Received outpatient doxycycline without any improvement Has been having fever with chills and white count is noted to be high at 18,000 Currently on Daptomycin and Unasyn. Currenty she remains afebrile and WBC is WNL. However, LLE erythema still persistent but improved from yesterday. We will again give IV Lasix [address] leg w con: Extensive subcutaneous edema and skin thickening within the left lower leg likely representing a cellulitis. No peripheral enhancing fluid collections to suggest an abscess. Wound culture negative thus far. On Roxicodone 10 mg Q6H PRN for pain control. (2) Supratherapeutic INR: Plan: Coumadin has been on hold since 05/28 due to supratherapeutic INR INR today at 7.3; continue holding coumadin. She last received 15 mg of Coumadin on 06/02. (3) Iron deficiency anemia: Plan: per pt she has hx of iron def anemia - baseline hgb 11-14 - hgb trend: 10.6 < 11 < 11.8 < 11.5 - c/w iron supplement - FOBT pending - pt already on PPI (4) Factor V deficiency: (5) History of gastric bypass: Plan: No acute issue (6) Morbid obesity: Plan: Morbidly obese with sleep apnea not been using any CPAP and/or oxygen (7) Hypothyroidism: Plan: Continue supplement Other significant medical conditions including GERD, chronic pain, depression and hypertension remained stable (8) Cellulitis of leg, right: Plan: Has had cellulitis of the right leg in April and required to be transferred to [place] on 04/14/2021 Required IR drainage for the fluid collection/abscess of the right leg Right leg is healed at this time We will continue current antibiotic Antibiotic has been changed to Unasyn and will continue with oral Augmentin on discharge Plan: PT and OT evaluation when patient can - pt does not want to go to rehab but okay with home PT/OT Admission and Anticipated Discharge Date Admission Date: May 25, 2021 Subjective Patient was very tearful this morning due to discomfort in her left lower extremity. Reports she only got some sleep at night. Denies any chest pain or shortness of breath this morning. Denies any nausea or vomiting. Rest of the review of system is negative. Review of Systems Review of Systems: All systems reviewed & are unremarkable except as noted in HPI & below Physical Exam Physical Exam: General: A&Ox3 HENT: NCAT, MMM, EOMI Eyes: PERRLA Neck: Supple, normal range of motion CVS: normal rate and rhythm Resp: b/l good breath sounds Abdomen: Soft, ND/NT Extremities: LLE is swollen, erythematous, warm to touch; erythema is improved from yesterday Neuro: face symmetric, no focal deficit Skin: warm and dry, no rashes/lesions/errythema MSK: normal ROM, no joint swelling/erythema Results & Data Results & Data ([facility]) Vital Signs (Past 12 Hours) Vital Signs Temp Pulse Pulse Resp BP Pulse Ox 06/04/21 11:00 37.1 C 83 20 97/63 L 90 06/04/21 07:31 84 06/04/21 07:00 36.8 C 84 20 103/68 93 06/04/21 03:03 36.6 C 77 20 111/72 92
[2021-06-04] MEDS ORDERED: FUROSEMIDE 40 MG in SYRINGE 0 ML IV ONE (13:30)
[2021-06-04] MEDS: [UNRECOGNIZED DRUG - OTHER] PO SCH (14:04)
--- NOTE | 2021-06-04 15:11 | Ultrasound Report ---
US venous doppler LE BI CLINICAL HISTORY: LLE swelling COMPARISON STUDY: June 24, 2020 FINDINGS: Real-time and color flow Doppler imaging were performed. Flow was seen within the femoral, popliteal and calf veins with no intraluminal thrombus demonstrated. The saphenous vein is patent. Study is suboptimal due to subcutaneous edema, patient body habitus and tenderness. IMPRESSION: No evidence of deep venous thrombosis. Suboptimal exam. ACT 112: Negative or not required by law. The above report was generated using voice recognition software. It may contain grammatical, syntax o r spelling errors. Electronically signed by: Rosemary Navarrete DO 06/04/2021 3:10 PM
[2021-06-04] MEDS: ACETAMINOPHEN 500 MG TAB PO PRN (17:44)
[2021-06-04] MEDS: FOLIC ACID 1 MG TAB PO SCH (20:32)
[2021-06-04] MEDS: ZOLPIDEM TARTRATE 5 MG TAB PO SCH (20:44)
[2021-06-04] MEDS: ADVANCED PROBIOTIC 1250 MG CAPSULE PO SCH (20:45)
[2021-06-05] MEDS: AMPICILLIN/SULBACTAM SOD 3,000 MG in 0.9 % SODIUM CHLORIDE 100 ML IV SCH ×4 (01:58→21:59)
[2021-06-05] MEDS: oxyCODONE HCL IR 5 MG TAB (IMMEDIATE RELEASE) PO PRN ×4 (01:58→22:30)
[2021-06-05] MEDS: LEVOTHYROXINE SODIUM 88 MCG TABLET PO SCH (06:31)
[2021-06-05 07:22] LABS: Hematocrit (blood only) 32.5 % (37-47); Hemoglobin 10.4 g/dL (12.0-16.0); Mean Corpuscular Hemoglobin 30.3 pg (25-34); Mean Corpuscular Volume 94.8 fL (80-100); Mean Platelet Volume 9.3 fL (7.4-10.4); Platelet Count 404 K/uL (130-400); RDW Coefficient of Variation 15.1 % (11.5-14.5); RDW Standard Deviation 52.3 fL (36.4-46.3); Red Blood Count 3.43 M/uL (4.2-5.4); White Blood Count 9.96 K/uL (4.8-10.8)
[2021-06-05 07:45] LABS: Prothrombin Time 50.8 Seconds (9.0-12.0)
[2021-06-05 07:51] LABS: INR 5.8 (0.9-1.1)
[2021-06-05 07:52] LABS: BUN Creatinine Ratio 9.8 (10-20); Calcium 8.7 mg/dl (8.5-10.1); Creatinine Clr Calc Pharmacy 195.3 ml/min; Est GFR (Non-African American) 103.5 ml/min; Magnesium 1.9 mg/dl (1.8-2.4); Phosphorus 3.6 mg/dl (2.5-4.9); Potassium 3.6 mmol/L (3.5-5.1)
[2021-06-05] MEDS: PANTOprazole 40 MG TAB PO SCH (08:22)
[2021-06-05] MEDS: OXYBUTYNIN CHLORIDE XL 5 MG TABCR PO SCH (08:22)
[2021-06-05] MEDS: CALCIUM CARBONATE 1250MG TAB PO SCH ×3 (08:22→22:02)
[2021-06-05] MEDS: DULoxetine HCL 60 MG CAP PO SCH (08:22)
[2021-06-05] MEDS: FLUTICASONE PROPIONATE NA SPR 16 GM BTL SCH (08:23)
[2021-06-05] MEDS: FERROUS SULFATE 325 MG TAB PO SCH ×2 (08:23→22:00)
[2021-06-05] MEDS: DICLOFENAC SOD 1% GEL 100 GM TUBE EXT SCH ×2 (08:23→22:02)
[2021-06-05] MEDS: ADVANCED PROBIOTIC 1250 MG CAPSULE PO SCH (08:23)
[2021-06-05] MEDS: buPROPion SR 150 MG TABCR PO SCH (08:24)
[2021-06-05] MEDS ORDERED: oxyCODONE HCL IR 5 MG TAB (IMMEDIATE RELEASE) PO STA (10:13)
[2021-06-05] MEDS: ACETAMINOPHEN 500 MG TAB PO SCH ×2 (11:01→22:02)
[2021-06-05] MEDS: DAPTOmycin 475 MG in SYRINGE 0 ML IV SCH (12:39)
[2021-06-05] MEDS: [UNRECOGNIZED DRUG - OTHER] PO SCH (12:40)
[2021-06-05] MEDS ORDERED: POTASSIUM CHLORIDE CRTAB 20 MEQ TABCR PO STA (12:45)
--- NOTE | 2021-06-05 12:48 | Hospitalist Progress Note ---
Date of Service June 05, 2021 Assessment & Plan (1) Cellulitis of leg, left: Plan: Admitted with spreading cellulitis with lower leg wound on the left side Received outpatient doxycycline without any improvement Has been having fever with chills and WBC noted to be high at 18,000 Currently on Daptomycin and Unasyn. Currently she remains afebrile and WBC is WNL. However, LLE erythema still persistent, also ongoing edema and sloughing of skin of the back of her cough Give IV Lasix [address] leg w con: Extensive subcutaneous edema and skin thickening within the left lower leg likely representing a cellulitis. No peripheral enhancing fluid collections to suggest an abscess. Wound culture -coag negative staph On Roxicodone 10 mg Q6H PRN for pain control. 06/05 - Patient continues to have pain in her leg, also prolonged hospital course Wound care nurse consulted We will discuss further with ID In addition concerned that daptomycin may be underdosed given her weight, BMI of over 70 (2) Supratherapeutic INR: Plan: Coumadin has been on hold since 05/28 due to supratherapeutic INR INR today at 5.8 9down from 7.3 yesterday); continue holding coumadin. She last received Coumadin on 06/02. (3) Iron deficiency anemia: Plan: per pt she has hx of iron def anemia - baseline hgb 11-14 - hgb trend: 10.6 < 11 < 11.8 < 11.5 - c/w iron supplement - FOBT pending - pt already on PPI (4) Factor V deficiency: (5) History of gastric bypass: Plan: No acute issue (6) Morbid obesity: Plan: Morbidly obese with sleep apnea not been using any CPAP and/or oxygen (7) Hypothyroidism: Plan: Continue supplement Other significant medical conditions including GERD, chronic pain, depression and hypertension remained stable (8) Cellulitis of leg, right: Plan: Has had cellulitis of the Right leg in April and required to be transferred to [place] on 04/14/2021 Required IR drainage for the fluid collection/abscess of the right leg Right leg is healed at this time Plan: PT and OT evaluation when patient can - pt does not want to go to rehab but okay with home PT/OT Admission and Anticipated Discharge Date Admission Date: May 25, 2021 Subjective Patient seen in follow-up of left lower extremity cellulitis Currently laying in bed, in no acute distress No fevers, chills, chest pain, shortness of breath, no abdominal pain, nausea or vomiting Continues to have pain in her left lower extremity, especially after her back of her leg skin, sloughing off We will consult with wound nurse again Infectious disease consulted Dietitian consult, improve protein intake, for better healing and in a long run weight loss Review of Systems Review of Systems: All systems reviewed & are unremarkable except as noted in Subjective Physical Exam Physical Exam: General: A&Ox3, morbidly obese F in NAD HEENT: NCAT, MMM, EOMI, PERRL Neck: Supple, normal range of motion CVS: normal rate and rhythm Resp: b/l good breath sounds Abdomen: Soft, ND/NT, +obese Extremities: LLE is swollen, erythematous, warm to touch, back of LLE skin sloughing off Neuro: Alert and oriented answers questions appropriately, no facial symmetry, speech fluent, moves extremities Skin: warm and dry, LLE as above MSK: normal ROM, moves extremities Results & Data Results & Data ([facility]) Vital Signs (Past 12 Hours) Vital Signs Temp Pulse Pulse Resp BP Pulse Ox 06/05/21 11:34 36.9 C 90 22 135/74 94 06/05/21 07:26 85 06/05/21 07:14 37.1 C 83 20 104/67 95 06/05/21 02:42 36.8 C 85 20 100/63 94 06/05/21 01:18 80 Laboratory Results 06/05/21 06/05/21 06/05/21 Range/Units 06:54 06:54 06:54 WBC (4.8-10.8) K/uL RBC (4.2-5.4) M/uL Hgb (12.0-16.0) g/dL Hct (37-47) % MCV (80-100) fL MCH (25-34) pg MCHC (32-36) g/dL RDW Std Deviation (36.4-46.3) fL RDW Coeff of Deandre (11.5-14.5) % Plt Count (130-400) K/uL MPV (7.4-10.4) fL PT 50.8 H (9.0-12.0) Seconds INR 5.8 H* (0.9-1.1) Sodium 137 (136-145) mmol/L Potassium 3.6 (3.5-5.1) mmol/L Chloride 102 (98-107) mmol/L Carbon Dioxide 31 (21-32) mmol/L Anion Gap 4.0 (3-11) BUN 6 L (7-18) mg/dl Creatinine 0.61 (0.6-1.2) mg/dl Est Cr Clr Drug Dosing 195.3 ml/min Est GFR ( Amer) 120.0 ml/min Est GFR (Non-Af Amer) 103.5 ml/min BUN/Creatinine Ratio 9.8 L (10-20) Glucose 87 (70-99) mg/dl Calcium 8.7 (8.5-10.1) mg/dl Phosphorus 3.6 (2.5-4.9) mg/dl Magnesium 1.9 (1.8-2.4) mg/dl Procalcitonin 0.16 (0-0.5) ng/ml 06/05/21 Range/Units 06:54 WBC 9.96 (4.8-10.8) K/uL RBC 3.43 L (4.2-5.4) M/uL Hgb 10.4 L (12.0-16.0) g/dL Hct 32.5 L (37-47) % MCV 94.8 (80-100) fL MCH 30.3 (25-34) pg MCHC 32.0 (32-36) g/dL RDW Std Deviation 52.3 H (36.4-46.3) fL RDW Coeff of Deandre 15.1 H (11.5-14.5) % Plt Count 404 H (130-400) K/uL MPV 9.3 (7.4-10.4) fL PT (9.0-12.0) Seconds INR (0.9-1.1) Sodium (136-145) mmol/L Potassium (3.5-5.1) mmol/L Chloride (98-107) mmol/L Carbon Dioxide (21-32) mmol/L Anion Gap (3-11) BUN (7-18) mg/dl Creatinine (0.6-1.2) mg/dl Est Cr Clr Drug Dosing ml/min Est GFR ( Amer) ml/min Est GFR (Non-Af Amer) ml/min BUN/Creatinine Ratio (10-20) Glucose (70-99) mg/dl Calcium (8.5-10.1) mg/dl Phosphorus (2.5-4.9) mg/dl Magnesium (1.8-2.4) mg/dl Procalcitonin (0-0.5) ng/ml Medications Administered Current Inpatient Medications Acetaminophen (Acetaminophen 500 Mg Tab) 1,000 mg PO Q8 [facility] Stop: 07/05/21 10:59 Last Admin: 06/05/21 11:01 Dose: 1,000 mg Documented by: Bupropion HCl (W) 150 mg PO 1300 [facility] Stop: 06/25/21 12:59 Last Admin: 06/05/21 12:40 Dose: 150 mg Documented by: Bupropion HCl (Bupropion Sr 150 Mg Tabcr) 300 mg PO QAM [facility] Stop: 06/25/21 08:59 Last Admin: 06/05/21 08:24 Dose: 300 mg Documented by: Calcium Carbonate (Calcium Carbonate 1250mg Tab) 1,250 mg PO TID [facility] Stop: 06/25/21 08:59 Last Admin: 06/05/21 08:22 Dose: 1,250 mg Documented by: Cyclobenzaprine HCl (Cyclobenzaprine Hcl 10 Mg Tab) 5 mg PO HS PRN PRN Reason: MUSCLE SPASMS Stop: 06/25/21 00:27 Last Admin: 05/29/21 20:43 Dose: 5 mg Documented by: Diclofenac Sodium (Diclofenac Sod 1% Gel 100 Gm Tube) 4 gm EXT BID [facility] Stop: 06/26/21 20:59 Last Admin: 06/05/21 08:23 Dose: 4 gm Documented by: Duloxetine HCl (Duloxetine Hcl 60 Mg Cap) 60 mg PO QAM [facility] Stop: 06/25/21 08:59 Last Admin: 06/05/21 08:22 Dose: 60 mg Documented by: Ferrous Sulfate (Ferrous Sulfate 325 Mg Tab) 325 mg PO BID [facility] Stop: 07/02/21 20:59 Last Admin: 06/05/21 08:23 Dose: 325 mg Documented by: Fexofenadine HCl (Fexofenadine 60 Mg Tab) 60 mg PO Q12H PRN PRN Reason: Allergy Symptoms Stop: 06/25/21 00:29 Last Admin: 06/01/21 10:21 Dose: 60 mg Documented by: Fluticasone Propionate (Fluticasone Propionate Na Spr 16 Gm Btl) 2 sprays NA DAILY [facility] Stop: 06/25/21 08:59 Last Admin: 06/05/21 08:23 Dose: 2 sprays Documented by: Folic Acid (Folic Acid 1 Mg Tab) 5 mg PO HS [facility] Stop: 06/25/21 20:59 Last Admin: 06/04/21 20:32 Dose: 5 mg Documented by: Ampicillin Sodium/Sulbactam Sodium 3,000 mg/ Sodium Chloride 108 mls @ 216 mls/hr IV Q6H [facility] Stop: 06/07/21 13:59 Last Infusion: 06/05/21 10:10 Dose: Infused Documented by: Daptomycin 475 mg/ Syringe 9.5 mls @ 4.75 mls/min IV DAILY@1200 [facility]; Protocol Stop: 06/07/21 12:29 Last Admin: 06/05/21 12:39 Dose: 4.75 mls/min Documented by: Lactobacillus Acidoph/Casei/Rhamnos (Advanced Probiotic 1250 Mg Capsule) 2 cap PO DAILY [facility] Stop: 07/04/21 19:29 Last Admin: 06/05/21 08:23 Dose: 2 cap Documented by: Levothyroxine Sodium (Levothyroxine Sodium 88 Mcg Tablet) [facility]: 06/25/21 06:29 Last Admin: 06/05/21 06:31 Dose: 88 mcg Documented by: Menthol (Cough Drop (Sugar Free) Aquiles 24 Aquiles/1 Box) 1 aquiles BUCCAL PRN PRN PRN Reason: Cough Stop: 06/28/21 21:06 Last Admin: 05/30/21 00:02 Dose: 1 aquiles Documented by: Miscellaneous Information (Daptomycin Consult Active) 1 ea N/A UD PRN PRN Reason: Consult Stop: 06/30/21 12:01 Nitroglycerin (Nitroglycerin Sl 0.4 Mg/Tab Tab) 0.4 mg SL UD PRN PRN Reason: Chest Pain Stop: 06/24/21 23:44 Ondansetron HCl (Ondansetron Inj 2 Mg/Ml 2 Ml Vial) 4 mg IV Q6H PRN PRN Reason: Nausea Stop: 06/24/21 23:44 Last Admin: 06/03/21 09:48 Dose: 4 mg Documented by: Oxybutynin Chloride (Oxybutynin Chloride Xl 5 Mg Tabcr) 5 mg PO DAILY [facility] Stop: 06/25/21 08:59 Last Admin: 06/05/21 08:22 Dose: 5 mg Documented by: Oxycodone HCl (Oxycodone Hcl Ir 5 Mg Tab (Immediate Release)) 10 mg PO Q6H PRN PRN Reason: Pain Stop: 06/09/21 16:42 Last Admin: 06/05/21 08:21 Dose: 10 mg Documented by: Oxycodone/Acetaminophen (Oxycodone/Acetaminophen 10-325 Tab) 1 tab PO Q6H PRN PRN Reason: Severe Pain (Scale Score 7-10) Stop: 06/08/21 23:44 Last Admin: 05/26/21 15:57 Dose: 1 tab Documented by: Pantoprazole Sodium (Pantoprazole 40 Mg Tab) 40 mg PO [facility] Stop: 06/25/21 08:59 Last Admin: 06/05/21 08:22 Dose: 40 mg Documented by: Polyethylene Glycol (Polyethylene (Miralax) 17 Gm Pack) 17 gm PO DAILY PRN PRN Reason: Constipation Stop: 06/24/21 23:44 Last Admin: 06/03/21 20:09 Dose: 17 gm Documented by: Warfarin Sodium ([facility]in Sod 10 Mg Tab) [facility] Stop: 06/25/21 20:59 Last Admin: 06/02/21 20:38 Dose: 10 mg Documented by: Warfarin Sodium (Warfarin Sod 5 Mg Tab) 5 mg PO MoWeFr [facility] Stop: 06/26/21 20:59 Last Admin: 05/27/21 21:44 Dose: 5 mg Documented by: Zolpidem Tartrate (Zolpidem Tartrate 5 Mg Tab) 5 mg PO [facility] Stop: 06/25/21 20:59 Last Admin: 06/04/21 20:44 Dose: 5 mg Documented by:
[2021-06-05] MEDS ORDERED: FUROSEMIDE 40 MG in SYRINGE 0 ML IV ONE (13:30)
[2021-06-05] MEDS ORDERED: DAPTOmycin 300 MG in SYRINGE 0 ML IV ONE (16:00)
[2021-06-05] MEDS: ZOLPIDEM TARTRATE 5 MG TAB PO SCH (22:00)
[2021-06-05] MEDS: FOLIC ACID 1 MG TAB PO SCH (22:01)
[2021-06-06] MEDS: AMPICILLIN/SULBACTAM SOD 3,000 MG in 0.9 % SODIUM CHLORIDE 100 ML IV SCH ×4 (01:17→20:28)
[2021-06-06] MEDS: oxyCODONE HCL IR 5 MG TAB (IMMEDIATE RELEASE) PO PRN ×3 (03:36→20:26)
[2021-06-06] MEDS ORDERED: HYDROmorphone INJ 0.5 MG/0.5 ML SYR IV STA ×2 (04:19→22:23)
[2021-06-06] MEDS: LEVOTHYROXINE SODIUM 88 MCG TABLET PO SCH (06:24)
[2021-06-06] MEDS: ACETAMINOPHEN 500 MG TAB PO SCH ×3 (06:24→22:02)
[2021-06-06 07:21] LABS: Hemoglobin 10.7 g/dL (12.0-16.0); Mean Corpuscular Hemoglobin 30.2 pg (25-34); Mean Corpuscular Hgb Conc 31.5 g/dL (32-36); Mean Platelet Volume 9.5 fL (7.4-10.4); Platelet Count 431 K/uL (130-400); RDW Coefficient of Variation 14.8 % (11.5-14.5); RDW Standard Deviation 52.5 fL (36.4-46.3); Red Blood Count 3.54 M/uL (4.2-5.4); White Blood Count 10.01 K/uL (4.8-10.8)
[2021-06-06 07:47] LABS: BUN Creatinine Ratio 8.7 (10-20); Calcium 8.9 mg/dl (8.5-10.1); Creatinine Clr Calc Pharmacy 181.8 ml/min; Est GFR (African American) 118.1 ml/min; Est GFR (Non-African American) 101.9 ml/min; Magnesium 1.9 mg/dl (1.8-2.4); Potassium 4.1 mmol/L (3.5-5.1)
[2021-06-06] MEDS: CALCIUM CARBONATE 1250MG TAB PO SCH ×3 (08:34→20:51)
[2021-06-06] MEDS: ADVANCED PROBIOTIC 1250 MG CAPSULE PO SCH (08:34)
[2021-06-06] MEDS: FERROUS SULFATE 325 MG TAB PO SCH ×2 (08:34→20:52)
[2021-06-06] MEDS: PANTOprazole 40 MG TAB PO SCH (08:35)
[2021-06-06] MEDS: DICLOFENAC SOD 1% GEL 100 GM TUBE EXT SCH ×2 (08:35→20:56)
[2021-06-06] MEDS: buPROPion SR 150 MG TABCR PO SCH (08:35)
[2021-06-06] MEDS: OXYBUTYNIN CHLORIDE XL 5 MG TABCR PO SCH (08:35)
[2021-06-06] MEDS: DULoxetine HCL 60 MG CAP PO SCH (08:35)
[2021-06-06] MEDS: FLUTICASONE PROPIONATE NA SPR 16 GM BTL SCH (08:35)
--- NOTE | 2021-06-06 08:41 | Hospitalist Progress Note ---
Date of Service June 06, 2021 Assessment & Plan (1) Cellulitis of leg, left: Plan: Admitted with spreading cellulitis with lower leg wound on the left side Received outpatient doxycycline without any improvement Has been having fever with chills and WBC noted to be high at 18,000 Currently on Daptomycin and Unasyn. Currently she remains afebrile and WBC is WNL. However, LLE erythema still persistent, also ongoing edema (06/06 - now improved) Give IV Lasix [address] leg w con: Extensive subcutaneous edema and skin thickening within the left lower leg likely representing a cellulitis. No peripheral enhancing fluid collections to suggest an abscess. Wound culture - Coag negative Staph On Roxicodone 10 mg Q6H PRN for pain control. 06/05 - Patient continues to have pain in her leg, also prolonged hospital course Wound care nurse consulted We will discuss further with ID In addition concerned that daptomycin may be underdosed given her weight, BMI of over 70 06/06 -yesterday increased dose of daptomycin to 800 mg daily after discussing with ID -Clinically patient seems improved, pain in left lower extremity improved, erythema improved and also edema -Plan for 14-day course, patient interested in [facility] (2) Supratherapeutic INR: Plan: Coumadin has been on hold since 05/28 due to supratherapeutic INR INR today at 5.8 (down from 7.3 yesterday); continue holding coumadin. She last received Coumadin on 06/02. (3) Iron deficiency anemia: Plan: per pt she has hx of iron def anemia - baseline hgb 11-14 - hgb trend: 10.6 < 11 < 11.8 < 11.5 - c/w iron supplement - FOBT pending - pt already on PPI (4) Factor V deficiency: (5) History of gastric bypass: Plan: No acute issue (6) Morbid obesity: Plan: Morbidly obese with sleep apnea not been using any CPAP and/or oxygen (7) Hypothyroidism: Plan: Continue supplement Other significant medical conditions including GERD, chronic pain, depression and hypertension remained stable (8) Cellulitis of leg, right: Plan: Has had cellulitis of the Right leg in April and required to be transferred to [place] on 04/14/2021 Required IR drainage for the fluid collection/abscess of the right leg Right leg is healed at this time Plan: PT and OT evaluation when patient can - pt does not want to go to rehab but okay with home PT/OT Admission and Anticipated Discharge Date Admission Date: May 25, 2021 Subjective Patient seen in follow-up of left lower extremity cellulitis Currently laying in bed, in no acute distress No fevers, chills, chest pain, shortness of breath, no abdominal pain, nausea or vomiting Reports that ain in her left lower extremity has improved Wound care consulted Infectious disease consulted Dietitian consult, for better healing and in a long run weight loss Review of Systems Review of Systems: All systems reviewed & are unremarkable except as noted in Subjective Physical Exam Physical Exam: General: A&Ox3, morbidly obese F in NAD HEENT: NCAT, MMM, EOMI, PERRL Neck: Supple, normal range of motion CVS: normal rate and rhythm Resp: b/l good breath sounds Abdomen: Soft, ND/NT, +obese Extremities: LLE is edematous (edema improved), erythematous (erythema improved), warm to touch Neuro: Alert and oriented answers questions appropriately, no facial asymmetry, speech fluent, moves extremities Skin: warm and dry, LLE as above MSK: normal ROM, moves extremities Results & Data Results & Data ([facility]) Vital Signs (Past 12 Hours) Vital Signs Temp Pulse Pulse Resp BP BP Pulse Ox 06/06/21 07:48 37.1 C 80 18 100/63 90 06/06/21 07:29 83 06/06/21 03:00 36.7 C 77 18 105/68 93 06/06/21 00:00 83 06/05/21 23:37 37.2 C 79 18 101/63 92 Laboratory Results 06/06/21 06/06/21 06/05/21 Range/Units 06:20 06:20 06:54 WBC 10.01 (4.8-10.8) K/uL RBC 3.54 L (4.2-5.4) M/uL Hgb 10.7 L (12.0-16.0) g/dL Hct 34.0 L (37-47) % MCV 96.0 (80-100) fL MCH 30.2 (25-34) pg MCHC 31.5 L (32-36) g/dL RDW Std Deviation 52.5 H (36.4-46.3) fL RDW Coeff of Deandre 14.8 H (11.5-14.5) % Plt Count 431 H (130-400) K/uL MPV 9.5 (7.4-10.4) fL Sodium 136 (136-145) mmol/L Potassium 4.1 (3.5-5.1) mmol/L Chloride 101 (98-107) mmol/L Carbon Dioxide 29 (21-32) mmol/L Anion Gap 6.0 (3-11) BUN 6 L (7-18) mg/dl Creatinine 0.64 (0.6-1.2) mg/dl Est Cr Clr Drug Dosing 181.8 ml/min Est GFR ( Amer) 118.1 ml/min Est GFR (Non-Af Amer) 101.9 ml/min BUN/Creatinine Ratio 8.7 L (10-20) Glucose 82 (70-99) mg/dl Calcium 8.9 (8.5-10.1) mg/dl Phosphorus 4.0 (2.5-4.9) mg/dl Magnesium 1.9 (1.8-2.4) mg/dl Total Creatine Kinase 66 (26-192) U/L NT-Pro-B Natriuret Pep 793 (0-900) pg/ml Procalcitonin (0-0.5) ng/ml 06/05/21 Range/Units 06:54 WBC (4.8-10.8) K/uL RBC (4.2-5.4) M/uL Hgb (12.0-16.0) g/dL Hct (37-47) % MCV (80-100) fL MCH (25-34) pg MCHC (32-36) g/dL RDW Std Deviation (36.4-46.3) fL RDW Coeff of Deandre (11.5-14.5) % Plt Count (130-400) K/uL MPV (7.4-10.4) fL Sodium (136-145) mmol/L Potassium (3.5-5.1) mmol/L Chloride (98-107) mmol/L Carbon Dioxide (21-32) mmol/L Anion Gap (3-11) BUN (7-18) mg/dl Creatinine (0.6-1.2) mg/dl Est Cr Clr Drug Dosing ml/min Est GFR ( Amer) ml/min Est GFR (Non-Af Amer) ml/min BUN/Creatinine Ratio (10-20) Glucose (70-99) mg/dl Calcium (8.5-10.1) mg/dl Phosphorus (2.5-4.9) mg/dl Magnesium (1.8-2.4) mg/dl Total Creatine Kinase (26-192) U/L NT-Pro-B Natriuret Pep (0-900) pg/ml Procalcitonin 0.16 (0-0.5) ng/ml Medications Administered Current Inpatient Medications Acetaminophen (Acetaminophen 500 Mg Tab) 1,000 mg PO Q8 [facility] Stop: 07/05/21 10:59 Last Admin: 06/06/21 06:24 Dose: 1,000 mg Documented by: Bupropion HCl (W) 150 mg PO 1300 [facility] Stop: 06/25/21 12:59 Last Admin: 06/05/21 12:40 Dose: 150 mg Documented by: Bupropion HCl (Bupropion Sr 150 Mg Tabcr) 300 mg PO QAM [facility] Stop: 06/25/21 08:59 Last Admin: 06/06/21 08:35 Dose: 300 mg Documented by: Calcium Carbonate (Calcium Carbonate 1250mg Tab) 1,250 mg PO TID [facility] Stop: 06/25/21 08:59 Last Admin: 06/06/21 08:34 Dose: 1,250 mg Documented by: Cyclobenzaprine HCl (Cyclobenzaprine Hcl 10 Mg Tab) 5 mg PO HS PRN PRN Reason: MUSCLE SPASMS Stop: 06/25/21 00:27 Last Admin: 05/29/21 20:43 Dose: 5 mg Documented by: Diclofenac Sodium (Diclofenac Sod 1% Gel 100 Gm Tube) 4 gm EXT BID [facility] Stop: 06/26/21 20:59 Last Admin: 06/06/21 08:35 Dose: 4 gm Documented by: Duloxetine HCl (Duloxetine Hcl 60 Mg Cap) 60 mg PO QAM [facility] Stop: 06/25/21 08:59 Last Admin: 06/06/21 08:35 Dose: 60 mg Documented by: Ferrous Sulfate (Ferrous Sulfate 325 Mg Tab) 325 mg PO BID [facility] Stop: 07/02/21 20:59 Last Admin: 06/06/21 08:34 Dose: 325 mg Documented by: Fexofenadine HCl (Fexofenadine 60 Mg Tab) 60 mg PO Q12H PRN PRN Reason: Allergy Symptoms Stop: 06/25/21 00:29 Last Admin: 06/01/21 10:21 Dose: 60 mg Documented by: Fluticasone Propionate (Fluticasone Propionate Na Spr 16 Gm Btl) 2 sprays NA DAILY [facility] Stop: 06/25/21 08:59 Last Admin: 06/06/21 08:35 Dose: 2 sprays Documented by: Folic Acid (Folic Acid 1 Mg Tab) 5 mg PO [facility] Stop: 06/25/21 20:59 Last Admin: 06/05/21 22:01 Dose: 5 mg Documented by: Ampicillin Sodium/Sulbactam Sodium 3,000 mg/ Sodium Chloride 108 mls @ 216 mls/hr IV Q6H [facility] Stop: 06/07/21 13:59 Last Admin: 06/06/21 08:34 Dose: 216 mls/hr Documented by: Daptomycin 800 mg/ Syringe 16 mls @ 8 mls/min IV Q24H [facility]; Protocol Stop: 06/11/21 14:01 Lactobacillus Acidoph/Casei/Rhamnos (Advanced Probiotic 1250 Mg Capsule) 2 cap PO DAILY [facility] Stop: 07/04/21 19:29 Last Admin: 06/06/21 08:34 Dose: 2 cap Documented by: Levothyroxine Sodium (Levothyroxine Sodium 88 Mcg Tablet) [facility]: 06/25/21 06:29 Last Admin: 06/06/21 06:24 Dose: 88 mcg Documented by: Menthol (Cough Drop (Sugar Free) Aquiles 24 Aquiles/1 Box) 1 aquiles BUCCAL PRN PRN PRN Reason: Cough Stop: 06/28/21 21:06 Last Admin: 05/30/21 00:02 Dose: 1 aquiles Documented by: Miscellaneous Information (Daptomycin Consult Active) 1 ea N/A UD PRN PRN Reason: Consult Stop: 06/30/21 12:01 Nitroglycerin (Nitroglycerin Sl 0.4 Mg/Tab Tab) 0.4 mg SL UD PRN PRN Reason: Chest Pain Stop: 06/24/21 23:44 Ondansetron HCl (Ondansetron Inj 2 Mg/Ml 2 Ml Vial) 4 mg IV Q6H PRN PRN Reason: Nausea Stop: 06/24/21 23:44 Last Admin: 06/03/21 09:48 Dose: 4 mg Documented by: Oxybutynin Chloride (Oxybutynin Chloride Xl 5 Mg Tabcr) 5 mg PO DAILY [facility] Stop: 06/25/21 08:59 Last Admin: 06/06/21 08:35 Dose: 5 mg Documented by: Oxycodone HCl (Oxycodone Hcl Ir 5 Mg Tab (Immediate Release)) 10 mg PO Q6H PRN PRN Reason: Pain Stop: 06/09/21 16:42 Last Admin: 06/06/21 03:36 Dose: 10 mg Documented by: Oxycodone/Acetaminophen (Oxycodone/Acetaminophen 10-325 Tab) 1 tab PO Q6H PRN PRN Reason: Severe Pain (Scale Score 7-10) Stop: 06/08/21 23:44 Last Admin: 05/26/21 15:57 Dose: 1 tab Documented by: Pantoprazole Sodium (Pantoprazole 40 Mg Tab) [facility] Stop: 06/25/21 08:59 Last Admin: 06/06/21 08:35 Dose: 40 mg Documented by: Polyethylene Glycol (Polyethylene (Miralax) 17 Gm Pack) 17 gm PO DAILY PRN PRN Reason: Constipation Stop: 06/24/21 23:44 Last Admin: 06/03/21 20:09 Dose: 17 gm Documented by: Warfarin Sodium (Warfarin Sod 10 Mg Tab) 10 mg PO SuTuThSa [facility] Stop: 06/25/21 20:59 Last Admin: 06/02/21 20:38 Dose: 10 mg Documented by: Warfarin Sodium (Warfarin Sod 5 Mg Tab) 5 mg PO MoWeFr [facility] Stop: 06/26/21 20:59 Last Admin: 05/27/21 21:44 Dose: 5 mg Documented by: Zolpidem Tartrate (Zolpidem Tartrate 5 Mg Tab) 5 mg PO [facility] Stop: 06/25/21 20:59 Last Admin: 06/05/21 22:00 Dose: 5 mg Documented by:
[2021-06-06] MEDS: [UNRECOGNIZED DRUG - OTHER] PO SCH (12:26)
[2021-06-06] MEDS: DAPTOmycin 800 MG in SYRINGE 0 ML IV SCH (14:01)
[2021-06-06] MEDS: MULTIVITAMIN TAB PO SCH (17:46)
[2021-06-06] MEDS: ZINC SULFATE 220 MG CAPSULE PO SCH (17:46)
[2021-06-06] MEDS: FOLIC ACID 1 MG TAB PO SCH (20:53)
[2021-06-06] MEDS: ZOLPIDEM TARTRATE 5 MG TAB PO SCH (22:01)
[2021-06-07] MEDS: AMPICILLIN/SULBACTAM SOD 3,000 MG in 0.9 % SODIUM CHLORIDE 100 ML IV SCH ×2 (02:32→08:47)
[2021-06-07] MEDS: oxyCODONE HCL IR 5 MG TAB (IMMEDIATE RELEASE) PO PRN ×4 (04:59→22:26)
[2021-06-07] MEDS: LEVOTHYROXINE SODIUM 88 MCG TABLET PO SCH (05:00)
[2021-06-07] MEDS: ACETAMINOPHEN 500 MG TAB PO SCH ×3 (05:00→22:26)
[2021-06-07 06:35] LABS: Hematocrit (blood only) 34.3 % (37-47); Hemoglobin 10.8 g/dL (12.0-16.0); Mean Corpuscular Hemoglobin 30.3 pg (25-34); Mean Corpuscular Hgb Conc 31.5 g/dL (32-36); Mean Corpuscular Volume 96.1 fL (80-100); Mean Platelet Volume 9.5 fL (7.4-10.4); Platelet Count 440 K/uL (130-400); RDW Coefficient of Variation 14.9 % (11.5-14.5); RDW Standard Deviation 52.6 fL (36.4-46.3); Red Blood Count 3.57 M/uL (4.2-5.4)
[2021-06-07] MEDS ORDERED: MoRPHine SULFATE 4 MG/ML 1 ML CARP\\VIAL IV STA (06:44)
[2021-06-07 07:03] LABS: Calcium 8.6 mg/dl (8.5-10.1); Creatinine Clr Calc Pharmacy 171.3 ml/min; Est GFR (African American) 115.7 ml/min; Est GFR (Non-African American) 99.9 ml/min; Magnesium 1.8 mg/dl (1.8-2.4); Potassium 3.9 mmol/L (3.5-5.1)
[2021-06-07 07:04] LABS: Phosphorus 3.6 mg/dl (2.5-4.9)
[2021-06-07 07:11] LABS: INR 2.3 (0.9-1.1); Prothrombin Time 21.7 Seconds (9.0-12.0)
--- NOTE | 2021-06-07 07:55 | Hospitalist Progress Note ---
Date of Service June 07, 2021 Assessment & Plan (1) Cellulitis of leg, left: Plan: Admitted with spreading cellulitis with lower leg wound on the left side Received outpatient doxycycline without any improvement Has been having fever with chills and WBC noted to be high at 18,000 Currently on Daptomycin and Unasyn. Currently she remains afebrile and WBC is WNL. However, LLE erythema still persistent, also ongoing edema (06/06 - now improved) Give IV Lasix [address] leg w con: Extensive subcutaneous edema and skin thickening within the left lower leg likely representing a cellulitis. No peripheral enhancing fluid collections to suggest an abscess. Wound culture - Coag negative Staph On Roxicodone 10 mg Q6H PRN for pain control. 06/05 - Patient continues to have pain in her leg, also prolonged hospital course Wound care nurse consulted We will discuss further with ID In addition concerned that daptomycin may be underdosed given her weight, BMI of over 70 06/06 -yesterday increased dose of daptomycin to 800 mg daily after discussing with ID -Clinically patient seems improved, pain in left lower extremity improved, erythema improved and also edema -Plan for 14-day course, patient interested in MTU 06/07 - patient did not ambulate much yesterday however today she says she was in the chair, and also up to the bathroom twice, however with any ambulation she is in excruciating pain (2) Supratherapeutic INR: Plan: Coumadin has been on hold since 05/28 due to supratherapeutic INR INR on 06/06 - 5.8 (down from 7.3 the previous day); continue holding coumadin. 06/07 - Current INR 2.3 She last received Coumadin on 06/02. At home on Coumadin on 5 mg in the milligram dose. Will restart now (06/07), at 3 mg daily Continue close monitor INR She will also need close INR monitoring as outpatient (3) Iron deficiency anemia: Plan: per pt she has hx of iron def anemia - baseline hgb 11-14 - hgb stable 10-11 - c/w iron supplement - FOBT pending - pt already on PPI (4) Factor V deficiency: (5) History of gastric bypass: Plan: No acute issue (6) Morbid obesity: Plan: Morbidly obese with sleep apnea not been using any CPAP and/or oxygen (7) Hypothyroidism: Plan: Continue supplement Other significant medical conditions including GERD, chronic pain, depression and hypertension remained stable (8) Cellulitis of leg, right: Plan: Has had cellulitis of the Right leg in April and required to be transferred to [place] on 04/14/2021 Required IR drainage for the fluid collection/abscess of the right leg Right leg is healed at this time Plan: PT and OT evaluation when patient can - pt does not want to go to rehab but okay with home PT/OT Admission and Anticipated Discharge Date Admission Date: May 25, 2021 Subjective Patient seen in follow-up of left lower extremity cellulitis Patient observed walking from the bathroom, reports excruciating pain, crying that when she ambulates the pain gets worse, when she rests the pain is controllable No fevers, chills, chest pain, shortness of breath, no abdominal pain, nausea or vomiting Wound care consulted Infectious disease consulted Dietitian consult, for better healing and in a long run weight loss Review of Systems Review of Systems: All systems reviewed & are unremarkable except as noted in Subjective Physical Exam Physical Exam: General: A&Ox3, morbidly obese F in NAD HEENT: NCAT, MMM, EOMI, PERRL Neck: Supple, normal range of motion CVS: normal rate and rhythm Resp: b/l good breath sounds Abdomen: Soft, ND/NT, +obese Extremities: LLE is edematous (edema improved), erythematous (erythema improved ), warm to touch Neuro: Alert and oriented answers questions appropriately, no facial asymmetry, speech fluent, moves extremities Skin: warm and dry, LLE as above MSK: normal ROM, moves extremities Results & Data Results & Data ([facility]) Vital Signs (Past 12 Hours) Vital Signs Temp Pulse Pulse Pulse Resp BP BP 06/07/21 07:39 77 06/07/21 07:22 36.7 C 75 20 92/54 L 06/07/21 02:41 36.7 C 85 20 103/68 06/07/21 00:06 83 06/06/21 22:53 36.9 C 83 20 124/75 06/06/21 19:53 37.0 C 79 20 133/87 Pulse Ox 06/07/21 07:39 06/07/21 07:22 91 06/07/21 02:41 93 06/07/21 00:06 06/06/21 22:53 95 06/06/21 19:53 93 Laboratory Results 06/07/21 06/07/21 06/07/21 Range/Units 05:55 05:55 05:55 WBC 9.40 (4.8-10.8) K/uL RBC 3.57 L (4.2-5.4) M/uL Hgb 10.8 L (12.0-16.0) g/dL Hct 34.3 L (37-47) % MCV 96.1 (80-100) fL MCH 30.3 (25-34) pg MCHC 31.5 L (32-36) g/dL RDW Std Deviation 52.6 H (36.4-46.3) fL RDW Coeff of Deandre 14.9 H (11.5-14.5) % Plt Count 440 H (130-400) K/uL MPV 9.5 (7.4-10.4) fL PT 21.7 H (9.0-12.0) Seconds INR 2.3 H (0.9-1.1) Sodium 137 (136-145) mmol/L Potassium 3.9 (3.5-5.1) mmol/L Chloride 104 (98-107) mmol/L Carbon Dioxide 28 (21-32) mmol/L Anion Gap 5.0 (3-11) BUN 7 (7-18) mg/dl Creatinine 0.68 (0.6-1.2) mg/dl Est Cr Clr Drug Dosing 171.3 ml/min Est GFR ( Amer) 115.7 ml/min Est GFR (Non-Af Amer) 99.9 ml/min BUN/Creatinine Ratio 10.0 (10-20) Glucose 97 (70-99) mg/dl Calcium 8.6 (8.5-10.1) mg/dl Phosphorus 3.6 (2.5-4.9) mg/dl Magnesium 1.8 (1.8-2.4) mg/dl Medications Administered Current Inpatient Medications Acetaminophen (Acetaminophen 500 Mg Tab) 1,000 mg PO Q8 [facility] Stop: 07/05/21 10:59 Last Admin: 06/07/21 05:00 Dose: 1,000 mg Documented by: Bupropion HCl (W) 150 mg PO 1300 [facility] Stop: 06/25/21 12:59 Last Admin: 06/06/21 12:26 Dose: 150 mg Documented by: Bupropion HCl (Bupropion Sr 150 Mg Tabcr) 300 mg PO QAM [facility] Stop: 06/25/21 08:59 Last Admin: 06/06/21 08:35 Dose: 300 mg Documented by: Calcium Carbonate (Calcium Carbonate 1250mg Tab) 1,250 mg PO TID [facility] Stop: 06/25/21 08:59 Last Admin: 06/06/21 20:51 Dose: 1,250 mg Documented by: Cyclobenzaprine HCl (Cyclobenzaprine Hcl 10 Mg Tab) 5 mg PO HS PRN PRN Reason: MUSCLE SPASMS Stop: 06/25/21 00:27 Last Admin: 05/29/21 20:43 Dose: 5 mg Documented by: Diclofenac Sodium (Diclofenac Sod 1% Gel 100 Gm Tube) 4 gm EXT BID [facility] Stop: 06/26/21 20:59 Last Admin: 06/06/21 20:56 Dose: Not Given Documented by: Docusate Sodium (Docusate Sodium 100 Mg Cap) 100 mg PO HS [facility] Stop: 07/07/21 20:59 Duloxetine HCl (Duloxetine Hcl 60 Mg Cap) 60 mg PO QAM [facility] Stop: 06/25/21 08:59 Last Admin: 06/06/21 08:35 Dose: 60 mg Documented by: Ferrous Sulfate (Ferrous Sulfate 325 Mg Tab) 325 mg PO BID [facility] Stop: 07/02/21 20:59 Last Admin: 06/06/21 20:52 Dose: 325 mg Documented by: Fexofenadine HCl (Fexofenadine 60 Mg Tab) 60 mg PO Q12H PRN PRN Reason: Allergy Symptoms Stop: 06/25/21 00:29 Last Admin: 06/01/21 10:21 Dose: 60 mg Documented by: Fluticasone Propionate (Fluticasone Propionate Na Spr 16 Gm Btl) 2 sprays NA DAILY [facility] Stop: 06/25/21 08:59 Last Admin: 06/06/21 08:35 Dose: 2 sprays Documented by: Folic Acid (Folic Acid 1 Mg Tab) 5 mg PO HS [facility] Stop: 06/25/21 20:59 Last Admin: 06/06/21 20:53 Dose: 5 mg Documented by: Ampicillin Sodium/Sulbactam Sodium 3,000 mg/ Sodium Chloride 108 mls @ 216 mls/hr IV Q6H [facility] Stop: 06/07/21 13:59 Last Infusion: 06/07/21 03:16 Dose: Infused Documented by: Daptomycin 800 mg/ Syringe 16 mls @ 8 mls/min IV Q24H [facility]; Protocol Stop: 06/11/21 14:01 Last Admin: 06/06/21 14:01 Dose: 8 mls/min Documented by: Lactobacillus Acidoph/Casei/Rhamnos (Advanced Probiotic 1250 Mg Capsule) 2 cap PO DAILY [facility] Stop: 07/04/21 19:29 Last Admin: 06/06/21 08:34 Dose: 2 cap Documented by: Levothyroxine Sodium (Levothyroxine Sodium 88 Mcg Tablet) 88 mcg PO DAILYBB [facility] Stop: 06/25/21 06:29 Last Admin: 06/07/21 05:00 Dose: 88 mcg Documented by: Magnesium Oxide (Magnesium Oxide 400 Mg Tab) 400 mg PO QAM [facility] Stop: 07/07/21 08:59 Menthol (Cough Drop (Sugar Free) Aquiles 24 Aquiles/1 Box) 1 aquiles BUCCAL PRN PRN PRN Reason: Cough Stop: 06/28/21 21:06 Last Admin: 05/30/21 00:02 Dose: 1 aquiles Documented by: Miscellaneous Information (Daptomycin Consult Active) 1 ea N/A UD PRN PRN Reason: Consult Stop: 06/30/21 12:01 Multivitamins (Multivitamin Tab) 1 tab PO QAM [facility] Stop: 07/06/21 16:14 Last Admin: 06/06/21 17:46 Dose: 1 tab Documented by: Nitroglycerin (Nitroglycerin Sl 0.4 Mg/Tab Tab) 0.4 mg SL UD PRN PRN Reason: Chest Pain Stop: 06/24/21 23:44 Ondansetron HCl (Ondansetron Inj 2 Mg/Ml 2 Ml Vial) 4 mg IV Q6H PRN PRN Reason: Nausea Stop: 06/24/21 23:44 Last Admin: 06/03/21 09:48 Dose: 4 mg Documented by: Oxybutynin Chloride (Oxybutynin Chloride Xl 5 Mg Tabcr) 5 mg PO DAILY [facility] Stop: 06/25/21 08:59 Last Admin: 06/06/21 08:35 Dose: 5 mg Documented by: Oxycodone HCl (Oxycodone Hcl Ir 5 Mg Tab (Immediate Release)) 10 mg PO Q6H PRN PRN Reason: Pain Stop: 06/09/21 16:42 Last Admin: 06/07/21 04:59 Dose: 10 mg Documented by: Oxycodone/Acetaminophen (Oxycodone/Acetaminophen 10-325 Tab) 1 tab PO Q6H PRN PRN Reason: Severe Pain (Scale Score 7-10) Stop: 06/08/21 23:44 Last Admin: 05/26/21 15:57 Dose: 1 tab Documented by: Pantoprazole Sodium ([facility]oprazole 40 Mg Tab) [facility] [place] [facility] Stop: 06/25/21 08:59 Last Admin: 06/06/21 08:35 Dose: 40 mg Documented by: Polyethylene Glycol (Polyethylene (Miralax) 17 Gm Pack) 17 gm PO DAILY [facility] Stop: 07/07/21 08:59 Warfarin Sodium (Warfarin Sod 3 Mg Tab) 3 mg PO DAILY@1600 [facility] Stop: 07/07/21 15:59 Zinc Sulfate (Zinc Sulfate 220 Mg Capsule) [facility] [place] Stop: 07/06/21 16:14 Last Admin: 06/06/21 17:46 Dose: 220 mg Documented by: Zolpidem Tartrate (Zolpidem Tartrate 5 Mg Tab) 5 mg PO [facility] Stop: 06/25/21 20:59 Last Admin: 06/06/21 22:01 Dose: 5 mg Documented by:
[2021-06-07] MEDS: FERROUS SULFATE 325 MG TAB PO SCH ×2 (08:04→20:04)
[2021-06-07] MEDS: ADVANCED PROBIOTIC 1250 MG CAPSULE PO SCH (08:04)
[2021-06-07] MEDS: PANTOprazole 40 MG TAB PO SCH (08:04)
[2021-06-07] MEDS: MULTIVITAMIN TAB PO SCH (08:05)
[2021-06-07] MEDS: OXYBUTYNIN CHLORIDE XL 5 MG TABCR PO SCH (08:05)
[2021-06-07] MEDS: ZINC SULFATE 220 MG CAPSULE PO SCH (08:05)
[2021-06-07] MEDS: CALCIUM CARBONATE 1250MG TAB PO SCH ×3 (08:05→20:04)
[2021-06-07] MEDS: buPROPion SR 150 MG TABCR PO SCH (08:05)
[2021-06-07] MEDS: DULoxetine HCL 60 MG CAP PO SCH (08:05)
[2021-06-07] MEDS: DICLOFENAC SOD 1% GEL 100 GM TUBE EXT SCH ×2 (08:06→20:05)
[2021-06-07] MEDS: FLUTICASONE PROPIONATE NA SPR 16 GM BTL SCH (08:06)
[2021-06-07] MEDS: POLYETHYLENE (MIRALAX) 17 GM PACK PO SCH (08:47)
[2021-06-07] MEDS: MAGNESIUM OXIDE 400 MG TAB PO SCH (08:47)
[2021-06-07] MEDS: DAPTOmycin 800 MG in SYRINGE 0 ML IV SCH (13:07)
[2021-06-07] MEDS: [UNRECOGNIZED DRUG - OTHER] PO SCH (13:08)
[2021-06-07] MEDS: WARFARIN SOD 3 MG TAB PO SCH (16:51)
[2021-06-07] MEDS: DOCUSATE SODIUM 100 MG CAP PO SCH (20:04)
[2021-06-07] MEDS: FOLIC ACID 1 MG TAB PO SCH (20:05)
[2021-06-07] MEDS: ZOLPIDEM TARTRATE 5 MG TAB PO SCH (22:26)
[2021-06-08] MEDS: oxyCODONE HCL IR 5 MG TAB (IMMEDIATE RELEASE) PO PRN ×3 (04:11→20:10)
[2021-06-08] MEDS: LEVOTHYROXINE SODIUM 88 MCG TABLET PO SCH (06:05)
[2021-06-08] MEDS: ACETAMINOPHEN 500 MG TAB PO SCH ×3 (06:06→22:13)
[2021-06-08 07:25] LABS: Hematocrit (blood only) 32.9 % (37-47); Hemoglobin 10.5 g/dL (12.0-16.0); Mean Corpuscular Hgb Conc 31.9 g/dL (32-36); Mean Corpuscular Volume 97.1 fL (80-100); Mean Platelet Volume 9.2 fL (7.4-10.4); Platelet Count 443 K/uL (130-400); RDW Coefficient of Variation 15.1 % (11.5-14.5); RDW Standard Deviation 53.3 fL (36.4-46.3); Red Blood Count 3.39 M/uL (4.2-5.4); White Blood Count 8.89 K/uL (4.8-10.8)
[2021-06-08 07:34] LABS: INR 1.5 (0.9-1.1); Prothrombin Time 14.8 Seconds (9.0-12.0)
[2021-06-08 07:45] LABS: BUN Creatinine Ratio 10.8 (10-20); Calcium 8.7 mg/dl (8.5-10.1); Creatinine Clr Calc Pharmacy 162.2 ml/min; Est GFR (African American) 112.7 ml/min; Est GFR (Non-African American) 97.2 ml/min; Magnesium 2.3 mg/dl (1.8-2.4)
--- NOTE | 2021-06-08 08:26 | Hospitalist Progress Note ---
Date of Service June 08, 2021 Assessment & Plan (1) Cellulitis of leg, left: Plan: Admitted with spreading cellulitis with lower leg wound on the left side Received outpatient doxycycline without any improvement Has been having fever with chills and WBC noted to be high at 18,000 Currently on Daptomycin and Unasyn. Currently she remains afebrile and WBC is WNL. However, LLE erythema still persistent, also ongoing edema (06/06 - now improved) Give IV Lasix [address] leg w con: Extensive subcutaneous edema and skin thickening within the left lower leg likely representing a cellulitis. No peripheral enhancing fluid collections to suggest an abscess. Wound culture - Coag negative Staph On Roxicodone 10 mg Q6H PRN for pain control. 06/05 - Patient continues to have pain in her leg, also prolonged hospital course Wound care nurse consulted We will discuss further with ID In addition concerned that daptomycin may be underdosed given her weight, BMI of over 70 06/06 -yesterday increased dose of daptomycin to 800 mg daily after discussing with ID -Clinically patient seems improved, pain in left lower extremity improved, erythema improved and also edema -Plan for 14-day course, patient interested in [facility] 06/07 - patient did not ambulate much yesterday however today she says she was in the chair, and also up to the bathroom twice, however with any ambulation she is in excruciating pain Given significant pain w/ambulation, plan to go home and follow-up with [facility] clinic may not be reasonable, and we will may need to discharge to SNF. CM aware. (2) Supratherapeutic INR: Plan: Coumadin has been on hold since 05/28 due to supratherapeutic INR INR on 06/06 - 5.8 (down from 7.3 the previous day); continue holding coumadin. 06/07 - INR 2.3 She last received Coumadin on 06/02. At home on Coumadin on 5 mg and 10 mg dose. Restarted at 3 mg daily (on 06/07) INR 1.5, start heparin subq Continue close monitor INR She will also need close INR monitoring as outpatient (3) Iron deficiency anemia: Plan: per pt she has hx of iron def anemia - baseline hgb 11-14 - hgb stable 10-11 - c/w iron supplement - FOBT pending - pt already on PPI (4) Factor V deficiency: (5) History of gastric bypass: Plan: No acute issue (6) Morbid obesity: Plan: Morbidly obese with sleep apnea not been using any CPAP and/or oxygen Patient says that she has official sleep study scheduled for July Obtained nocturnal pulse ox, patient needs 2 L of O2 via NC (7) Hypothyroidism: Plan: Continue supplement Other significant medical conditions including GERD, chronic pain, depression and hypertension remained stable (8) Cellulitis of leg, right: Plan: Has had cellulitis of the Right leg in April and required to be transferred to [place] on 04/14/2021 Required IR drainage for the fluid collection/abscess of the right leg Right leg is healed at this time Plan: PT and OT evaluation when patient can - pt does not want to go to rehab but okay with home PT/OT Admission and Anticipated Discharge Date Admission Date: May 25, 2021 Subjective Patient seen in follow-up of left lower extremity cellulitis Yesterday patient observed walking from the bathroom, reported excruciating pain, when ambulating on the leg No fevers, chills, chest pain, shortness of breath, no abdominal pain, nausea or vomiting Concern for sleep apnea, patient has outpatient official sleep study scheduled for July, obtained nocturnal pulse ox, patient desaturated below 88% for longer than 5 minutes, was placed on 2 L Wound care consulted Infectious disease consulted Dietitian consult, for better healing and in a long run weight loss Discussed with the patient that ambulation may be a problem if she goes home and tries to follow-up with [facility] clinic, if she is in so much pain when ambulating. She is open to SNF. Will let CM know. Review of Systems Review of Systems: All systems reviewed & are unremarkable except as noted in Subjective Physical Exam Physical Exam: General: A&Ox3, morbidly obese F in NAD HEENT: NCAT, MMM, EOMI, PERRL Neck: Supple, normal range of motion CVS: normal rate and rhythm Resp: b/l good breath sounds Abdomen: Soft, ND/NT, +obese Extremities: LLE is edematous (edema improved), erythematous (erythema improved), warm to touch Neuro: Alert and oriented answers questions appropriately, no facial asymmetry, speech fluent, moves extremities Skin: warm and dry, LLE as above MSK: normal ROM, moves extremities Results & Data Results & Data ([facility]) Vital Signs (Past 12 Hours) Vital Signs Temp Pulse Pulse Pulse Pulse Pulse Resp 06/08/21 07:40 36.7 C 69 20 06/08/21 03:17 36.8 C 78 18 06/08/21 03:02 75 06/08/21 01:15 86 94 H 06/08/21 01:03 82 06/07/21 22:47 37.1 C 79 18 06/07/21 20:55 82 BP BP Pulse Ox Pulse Ox Pulse Ox 06/08/21 07:40 99/65 L 93 06/08/21 03:17 112/72 97 06/08/21 03:02 95 06/08/21 01:15 94 80 L 06/08/21 01:03 06/07/21 22:47 114/67 97 06/07/21 20:55 95 Laboratory Results 06/08/21 06/08/21 06/08/21 Range/Units 07:17 07:17 07:17 WBC 8.89 (4.8-10.8) K/uL RBC 3.39 L (4.2-5.4) M/uL Hgb 10.5 L (12.0-16.0) g/dL Hct 32.9 L (37-47) % MCV 97.1 (80-100) fL MCH 31.0 (25-34) pg MCHC 31.9 L (32-36) g/dL RDW Std Deviation 53.3 H (36.4-46.3) fL RDW Coeff of Deandre 15.1 H (11.5-14.5) % Plt Count 443 H (130-400) K/uL MPV 9.2 (7.4-10.4) fL PT 14.8 H (9.0-12.0) Seconds INR 1.5 H (0.9-1.1) Sodium 139 (136-145) mmol/L Potassium 4.0 (3.5-5.1) mmol/L Chloride 105 (98-107) mmol/L Carbon Dioxide 31 (21-32) mmol/L Anion Gap 3.0 (3-11) BUN 8 (7-18) mg/dl Creatinine 0.71 (0.6-1.2) mg/dl Est Cr Clr Drug Dosing 162.2 ml/min Est GFR ( Amer) 112.7 ml/min Est GFR (Non-Af Amer) 97.2 ml/min BUN/Creatinine Ratio 10.8 (10-20) Glucose 85 (70-99) mg/dl Calcium 8.7 (8.5-10.1) mg/dl Phosphorus 4.0 (2.5-4.9) mg/dl Magnesium 2.3 (1.8-2.4) mg/dl Medications Administered Current Inpatient Medications Acetaminophen (Acetaminophen 500 Mg Tab) 1,000 mg PO Q8 [facility] Stop: 07/05/21 10:59 Last Admin: 06/08/21 06:06 Dose: 1,000 mg Documented by: Bupropion HCl (W) 150 mg PO 1300 [facility] Stop: 06/25/21 12:59 Last Admin: 06/07/21 13:08 Dose: 150 mg Documented by: Bupropion HCl (Bupropion Sr 150 Mg Tabcr) 300 mg PO QAM [facility] Stop: 06/25/21 08:59 Last Admin: 06/07/21 08:05 Dose: 300 mg Documented by: Calcium Carbonate (Calcium Carbonate 1250mg Tab) 1,250 mg PO TID [facility] Stop: 06/25/21 08:59 Last Admin: 06/07/21 20:04 Dose: 1,250 mg Documented by: Cyclobenzaprine HCl (Cyclobenzaprine Hcl 10 Mg Tab) 5 mg PO HS PRN PRN Reason: MUSCLE SPASMS Stop: 06/25/21 00:27 Last Admin: 05/29/21 20:43 Dose: 5 mg Documented by: Diclofenac Sodium (Diclofenac Sod 1% Gel 100 Gm Tube) 4 gm EXT BID [facility] Stop: 06/26/21 20:59 Last Admin: 06/07/21 20:05 Dose: 4 gm Documented by: Docusate Sodium (Docusate Sodium 100 Mg Cap) 100 mg PO HS [facility] Stop: 07/07/21 20:59 Last Admin: 06/07/21 20:04 Dose: 100 mg Documented by: Duloxetine HCl (Duloxetine Hcl 60 Mg Cap) 60 mg PO QAM [facility] Stop: 06/25/21 08:59 Last Admin: 06/07/21 08:05 Dose: 60 mg Documented by: Ferrous Sulfate (Ferrous Sulfate 325 Mg Tab) 325 mg PO BID [facility] Stop: 07/02/21 20:59 Last Admin: 06/07/21 20:04 Dose: 325 mg Documented by: Fexofenadine HCl (Fexofenadine 60 Mg Tab) 60 mg PO Q12H PRN PRN Reason: Allergy Symptoms Stop: 06/25/21 00:29 Last Admin: 06/01/21 10:21 Dose: 60 mg Documented by: Fluticasone Propionate (Fluticasone Propionate Na Spr 16 Gm Btl) 2 sprays NA DAILY [facility] Stop: 06/25/21 08:59 Last Admin: 06/07/21 08:06 Dose: 2 sprays Documented by: Folic Acid (Folic Acid 1 Mg Tab) 5 mg PO HS [facility] Stop: 06/25/21 20:59 Last Admin: 06/07/21 20:05 Dose: 5 mg Documented by: Daptomycin 800 mg/ Syringe 16 mls @ 8 mls/min IV Q24H [facility]; Protocol Stop: 06/11/21 14:01 Last Admin: 06/07/21 13:07 Dose: 8 mls/min Documented by: Lactobacillus Acidoph/Casei/Rhamnos (Advanced Probiotic 1250 Mg Capsule) 2 cap PO DAILY [facility] Stop: 07/04/21 19:29 Last Admin: 06/07/21 08:04 Dose: 2 cap Documented by: Levothyroxine Sodium (Levothyroxine Sodium 88 Mcg Tablet) 88 mcg PO DAILYBB [facility] Stop: 06/25/21 06:29 Last Admin: 06/08/21 06:05 Dose: 88 mcg Documented by: Magnesium Oxide (Magnesium Oxide 400 Mg Tab) 400 mg PO QAM [facility] Stop: 07/07/21 08:59 Last Admin: 06/07/21 08:47 Dose: 400 mg Documented by: Menthol (Cough Drop (Sugar Free) Aquiles 24 Aquiles/1 Box) 1 aquiles BUCCAL PRN PRN PRN Reason: Cough Stop: 06/28/21 21:06 Last Admin: 05/30/21 00:02 Dose: 1 aquiles Documented by: Miscellaneous Information (Daptomycin Consult Active) 1 ea N/A UD PRN PRN Reason: Consult Stop: 06/30/21 12:01 Morphine Sulfate (Morphine Sulfate 4 Mg/Ml 1 Ml Carp\Vial) 3 mg IV Q4H PRN PRN Reason: Pain (7-10) Stop: 06/21/21 17:38 Multivitamins (Multivitamin Tab) 1 tab PO QAM [facility] Stop: 07/06/21 16:14 Last Admin: 06/07/21 08:05 Dose: 1 tab Documented by: Nitroglycerin (Nitroglycerin Sl 0.4 Mg/Tab Tab) 0.4 mg SL UD PRN PRN Reason: Chest Pain Stop: 06/24/21 23:44 Ondansetron HCl (Ondansetron Inj 2 Mg/Ml 2 Ml Vial) 4 mg IV Q6H PRN PRN Reason: Nausea Stop: 06/24/21 23:44 Last Admin: 06/03/21 09:48 Dose: 4 mg Documented by: Oxybutynin Chloride (Oxybutynin Chloride Xl 5 Mg Tabcr) 5 mg PO DAILY [facility] Stop: 06/25/21 08:59 Last Admin: 06/07/21 08:05 Dose: 5 mg Documented by: Oxycodone HCl (Oxycodone Hcl Ir 5 Mg Tab (Immediate Release)) 10 mg PO Q4H PRN PRN Reason: Pain Stop: 06/09/21 16:42 Last Admin: 06/08/21 04:11 Dose: 10 mg Documented by: Oxycodone/Acetaminophen (Oxycodone/Acetaminophen 10-325 Tab) 1 tab PO Q6H PRN PRN Reason: Severe Pain (Scale Score 7-10) Stop: 06/08/21 23:44 Last Admin: 05/26/21 15:57 Dose: 1 tab Documented by: Pantoprazole Sodium (Pantoprazole 40 Mg Tab) [facility] [place] Stop: 06/25/21 08:59 Last Admin: 06/07/21 08:04 Dose: 40 mg Documented by: Polyethylene Glycol (Polyethylene (Miralax) 17 Gm Pack) 17 gm PO DAILY [facility] Stop: 07/07/21 08:59 Last Admin: 06/07/21 08:47 Dose: 17 gm Documented by: Warfarin Sodium (Warfarin Sod 3 Mg Tab) 3 mg PO DAILY@1600 [facility] Stop: 07/07/21 15:59 Last Admin: 06/07/21 16:51 Dose: 3 mg Documented by: Zinc Sulfate (Zinc Sulfate 220 Mg Capsule) [facility] [place] Stop: 07/06/21 16:14 Last Admin: 06/07/21 08:05 Dose: 220 mg Documented by: Zolpidem Tartrate (Zolpidem Tartrate 5 Mg Tab) 5 mg PO [facility] Stop: 06/25/21 20:59 Last Admin: 06/07/21 22:26 Dose: 5 mg Documented by:
[2021-06-08] MEDS: buPROPion SR 150 MG TABCR PO SCH (11:02)
[2021-06-08] MEDS: DULoxetine HCL 60 MG CAP PO SCH (11:03)
[2021-06-08] MEDS: CALCIUM CARBONATE 1250MG TAB PO SCH ×3 (11:03→20:13)
[2021-06-08] MEDS: DICLOFENAC SOD 1% GEL 100 GM TUBE EXT SCH ×2 (11:03→22:15)
[2021-06-08] MEDS: FLUTICASONE PROPIONATE NA SPR 16 GM BTL SCH (11:04)
[2021-06-08] MEDS: MAGNESIUM OXIDE 400 MG TAB PO SCH (11:04)
[2021-06-08] MEDS: FERROUS SULFATE 325 MG TAB PO SCH ×2 (11:04→20:11)
[2021-06-08] MEDS: ADVANCED PROBIOTIC 1250 MG CAPSULE PO SCH (11:04)
[2021-06-08] MEDS: PANTOprazole 40 MG TAB PO SCH (11:05)
[2021-06-08] MEDS: POLYETHYLENE (MIRALAX) 17 GM PACK PO SCH (11:05)
[2021-06-08] MEDS: MULTIVITAMIN TAB PO SCH (11:05)
[2021-06-08] MEDS: OXYBUTYNIN CHLORIDE XL 5 MG TABCR PO SCH (11:05)
[2021-06-08] MEDS: ZINC SULFATE 220 MG CAPSULE PO SCH (11:06)
[2021-06-08] MEDS: ONDANSETRON INJ 2 MG/ML 2 ML VIAL IV PRN (11:46)
[2021-06-08] MEDS: DAPTOmycin 800 MG in SYRINGE 0 ML IV SCH (14:54)
[2021-06-08] MEDS: [UNRECOGNIZED DRUG - OTHER] PO SCH (14:55)
[2021-06-08] MEDS: HEPARIN SOD 5,000 UNIT/0.5 ML VIAL SQ SCH ×2 (14:56→22:14)
[2021-06-08] MEDS: WARFARIN SOD 3 MG TAB PO SCH (15:01)
[2021-06-08] MEDS: FOLIC ACID 1 MG TAB PO SCH (20:11)
[2021-06-08] MEDS: DOCUSATE SODIUM 100 MG CAP PO SCH (20:11)
[2021-06-08] MEDS: ZOLPIDEM TARTRATE 5 MG TAB PO SCH (22:13)
[2021-06-09] MEDS: oxyCODONE HCL IR 5 MG TAB (IMMEDIATE RELEASE) PO PRN ×2 (03:06→11:03)
[2021-06-09] MEDS: MoRPHine SULFATE 4 MG/ML 1 ML CARP\\VIAL IV PRN ×2 (03:57→14:41)
[2021-06-09] MEDS ORDERED: MoRPHine SULFATE 4 MG/ML 1 ML CARP\\VIAL IV STA (04:27)
[2021-06-09] MEDS: ACETAMINOPHEN 500 MG TAB PO SCH ×3 (06:25→22:37)
[2021-06-09] MEDS: LEVOTHYROXINE SODIUM 88 MCG TABLET PO SCH (06:26)
[2021-06-09] MEDS: HEPARIN SOD 5,000 UNIT/0.5 ML VIAL SQ SCH ×3 (06:26→22:37)
[2021-06-09 06:48] LABS: Hematocrit (blood only) 35.3 % (37-47); Hemoglobin 11.2 g/dL (12.0-16.0); Mean Corpuscular Hemoglobin 30.4 pg (25-34); Mean Corpuscular Hgb Conc 31.7 g/dL (32-36); Mean Corpuscular Volume 95.9 fL (80-100); Mean Platelet Volume 9.5 fL (7.4-10.4); Platelet Count 511 K/uL (130-400); RDW Standard Deviation 52.7 fL (36.4-46.3); Red Blood Count 3.68 M/uL (4.2-5.4); White Blood Count 9.18 K/uL (4.8-10.8)
[2021-06-09 07:06] LABS: BUN Creatinine Ratio 14.1 (10-20); Calcium 8.8 mg/dl (8.5-10.1); Creatinine Clr Calc Pharmacy 158.4 ml/min; Magnesium 1.9 mg/dl (1.8-2.4); Potassium 4.3 mmol/L (3.5-5.1)
[2021-06-09 07:27] LABS: INR 1.2 (0.9-1.1); Prothrombin Time 12.3 Seconds (9.0-12.0)
--- NOTE | 2021-06-09 07:42 | Hospitalist Progress Note ---
Date of Service June 09, 2021 Assessment & Plan (1) Cellulitis of leg, left: Plan: Admitted with spreading cellulitis with lower leg wound on the left side Received outpatient doxycycline without any improvement Has been having fever with chills and WBC noted to be high at 18,000 Currently on Daptomycin and Unasyn. Currently she remains afebrile and WBC is WNL. However, LLE erythema still persistent, also ongoing edema (06/06 - now improved) Give IV Lasix [address] leg w con: Extensive subcutaneous edema and skin thickening within the left lower leg likely representing a cellulitis. No peripheral enhancing fluid collections to suggest an abscess. Wound culture - Coag negative Staph On Roxicodone 10 mg Q6H PRN for pain control. 06/05 - Patient continues to have pain in her leg, also prolonged hospital course Wound care nurse consulted We will discuss further with ID In addition concerned that daptomycin may be underdosed given her weight, BMI of over 70 06/06 -yesterday increased dose of daptomycin to 800 mg daily after discussing with ID -Clinically patient seems improved, pain in left lower extremity improved, erythema improved and also edema -Plan for 14-day course, patient interested in [facility] 06/07 - patient did not ambulate much yesterday however today she says she was in the chair, and also up to the bathroom twice, however with any ambulation she is in excruciating pain Given significant pain w/ambulation, plan to go home and follow-up with [facility] clinic may not be reasonable, and we will may need to discharge to SNF. CM aware. 06/09 -given significant pain, will repeat CT scan of left lower extremity (2) Supratherapeutic INR: Plan: Coumadin has been on hold since 05/28 due to supratherapeutic INR INR on 06/06 - 5.8 (down from 7.3 the previous day); continue holding coumadin. 06/07 - INR 2.3 She last received Coumadin on 06/02. At home on Coumadin on 5 mg and 10 mg dose. Restarted at 3 mg daily (on 06/07) INR 1.5, start heparin subq INR 1.2 (06/09) - increase warfarin dose Continue close monitor INR She will also need close INR monitoring as outpatient (3) Iron deficiency anemia: Plan: per pt she has hx of iron def anemia - baseline hgb 11-14 - hgb stable 10-11 - c/w iron supplement - FOBT pending - pt already on PPI (4) Factor V deficiency: (5) History of gastric bypass: Plan: No acute issue (6) Morbid obesity: Plan: Morbidly obese with sleep apnea not been using any CPAP and/or oxygen Patient says that she has official sleep study scheduled for July Obtained nocturnal pulse ox, patient needs 2 L of O2 via NC (7) Hypothyroidism: Plan: Continue supplement Other significant medical conditions including GERD, chronic pain, depression and hypertension remained stable (8) Cellulitis of leg, right: Plan: Has had cellulitis of the Right leg in April and required to be transferred to [place] on 04/14/2021 Required IR drainage for the fluid collection/abscess of the right leg Right leg is healed at this time Plan: PT and OT evaluation when patient can - dispo-questionable - SNF vs home PT/OT Admission and Anticipated Discharge Date Admission Date: May 25, 2021 Subjective Patient seen in follow-up of left lower extremity cellulitis No fevers, chills, chest pain, shortness of breath, no abdominal pain, nausea or vomiting Continues to have significant pain in her left lower extremity We will repeat CT scan of left lower extremity Concern for sleep apnea, patient has outpatient official sleep study scheduled for July, obtained nocturnal pulse ox, patient desaturated below 88% for longer than 5 minutes, was placed on 2 L Wound care consulted Infectious disease consulted Dietitian consult, for better healing and in a long run weight loss Discussed with the patient that ambulation may be a problem if she goes home and tries to follow-up with [facility] clinic, if she is in so much pain when ambulating. She is open to SNF. CM aware. Review of Systems Review of Systems: All systems reviewed & are unremarkable except as noted in Subjective Physical Exam Physical Exam: General: A&Ox3, morbidly obese F in NAD HEENT: NCAT, MMM, EOMI, PERRL Neck: Supple, normal range of motion CVS: normal rate and rhythm Resp: b/l good breath sounds Abdomen: Soft, ND/NT, +obese Extremities: LLE is edematous (edema improved), erythematous (erythema improved), warm to touch, opaque blister on posterior calf Neuro: Alert and oriented answers questions appropriately, no facial asymmetry, speech fluent, moves extremities Skin: warm and dry, LLE as above MSK: normal ROM, moves extremities Results & Data Results & Data ([facility]) Vital Signs (Past 12 Hours) Vital Signs Temp Pulse Pulse Pulse Resp BP BP 06/09/21 07:20 36.7 C 81 20 105/68 06/09/21 04:06 36.8 C 76 18 103/69 06/09/21 00:18 80 06/08/21 23:59 37.2 C 81 18 112/66 Pulse Ox 06/09/21 07:20 94 06/09/21 04:06 94 06/09/21 00:18 06/08/21 23:59 96 Laboratory Results 06/09/21 06/09/21 06/09/21 Range/Units 06:33 06:33 06:33 WBC 9.18 (4.8-10.8) K/uL RBC 3.68 L (4.2-5.4) M/uL Hgb 11.2 L (12.0-16.0) g/dL Hct 35.3 L (37-47) % MCV 95.9 (80-100) fL MCH 30.4 (25-34) pg MCHC 31.7 L (32-36) g/dL RDW Std Deviation 52.7 H (36.4-46.3) fL RDW Coeff of Deandre 15.0 H (11.5-14.5) % Plt Count 511 H (130-400) K/uL MPV 9.5 (7.4-10.4) fL PT 12.3 H (9.0-12.0) Seconds INR 1.2 H (0.9-1.1) Sodium 139 (136-145) mmol/L Potassium 4.3 (3.5-5.1) mmol/L Chloride 103 (98-107) mmol/L Carbon Dioxide 29 (21-32) mmol/L Anion Gap 7.0 (3-11) BUN 10 (7-18) mg/dl Creatinine 0.73 (0.6-1.2) mg/dl Est Cr Clr Drug Dosing 158.4 ml/min Est GFR ( Amer) 109.0 ml/min Est GFR (Non-Af Amer) 94.0 ml/min BUN/Creatinine Ratio 14.1 (10-20) Glucose 91 (70-99) mg/dl Calcium 8.8 (8.5-10.1) mg/dl Phosphorus (2.5-4.9) mg/dl Magnesium 1.9 (1.8-2.4) mg/dl 06/08/21 Range/Units 07:17 WBC (4.8-10.8) K/uL RBC (4.2-5.4) M/uL Hgb (12.0-16.0) g/dL Hct (37-47) % MCV (80-100) fL MCH (25-34) pg MCHC (32-36) g/dL RDW Std Deviation (36.4-46.3) fL RDW Coeff of Deandre (11.5-14.5) % Plt Count (130-400) K/uL MPV (7.4-10.4) fL PT (9.0-12.0) Seconds INR (0.9-1.1) Sodium 139 (136-145) mmol/L Potassium 4.0 (3.5-5.1) mmol/L Chloride 105 (98-107) mmol/L Carbon Dioxide 31 (21-32) mmol/L Anion Gap 3.0 (3-11) BUN 8 (7-18) mg/dl Creatinine 0.71 (0.6-1.2) mg/dl Est Cr Clr Drug Dosing 162.2 ml/min Est GFR ( Amer) 112.7 ml/min Est GFR (Non-Af Amer) 97.2 ml/min BUN/Creatinine Ratio 10.8 (10-20) Glucose 85 (70-99) mg/dl Calcium 8.7 (8.5-10.1) mg/dl Phosphorus 4.0 (2.5-4.9) mg/dl Magnesium 2.3 (1.8-2.4) mg/dl Medications Administered Current Inpatient Medications Acetaminophen (Acetaminophen 500 Mg Tab) 1,000 mg PO Q8 [facility] Stop: 07/05/21 10:59 Last Admin: 06/09/21 06:25 Dose: 1,000 mg Documented by: Bupropion HCl (W) 150 mg PO 1300 [facility] Stop: 06/25/21 12:59 Last Admin: 06/08/21 14:55 Dose: 150 mg Documented by: Bupropion HCl (Bupropion Sr 150 Mg Tabcr) 300 mg PO QAM [facility] Stop: 06/25/21 08:59 Last Admin: 06/08/21 11:02 Dose: 300 mg Documented by: Calcium Carbonate (Calcium Carbonate 1250mg Tab) 1,250 mg PO TID [facility] Stop: 06/25/21 08:59 Last Admin: 06/08/21 20:13 Dose: 1,250 mg Documented by: Cyclobenzaprine HCl (Cyclobenzaprine Hcl 10 Mg Tab) 5 mg PO HS PRN PRN Reason: MUSCLE SPASMS Stop: 06/25/21 00:27 Last Admin: 05/29/21 20:43 Dose: 5 mg Documented by: Diclofenac Sodium (Diclofenac Sod 1% Gel 100 Gm Tube) 4 gm EXT BID [facility] Stop: 06/26/21 20:59 Last Admin: 06/08/21 22:15 Dose: 4 gm Documented by: Docusate Sodium (Docusate Sodium 100 Mg Cap) 100 mg PO HS [facility] Stop: 07/07/21 20:59 Last Admin: 06/08/21 20:11 Dose: 100 mg Documented by: Duloxetine HCl (Duloxetine Hcl 60 Mg Cap) 60 mg PO QAM [facility] Stop: 06/25/21 08:59 Last Admin: 06/08/21 11:03 Dose: 60 mg Documented by: Ferrous Sulfate (Ferrous Sulfate 325 Mg Tab) 325 mg PO BID [facility] Stop: 07/02/21 20:59 Last Admin: 06/08/21 20:11 Dose: 325 mg Documented by: Fexofenadine HCl (Fexofenadine 60 Mg Tab) 60 mg PO Q12H PRN PRN Reason: Allergy Symptoms Stop: 06/25/21 00:29 Last Admin: 06/01/21 10:21 Dose: 60 mg Documented by: Fluticasone Propionate (Fluticasone Propionate Na Spr 16 Gm Btl) 2 sprays NA DAILY [facility] Stop: 06/25/21 08:59 Last Admin: 06/08/21 11:04 Dose: 2 sprays Documented by: Folic Acid (Folic Acid 1 Mg Tab) 5 mg PO HS [facility] Stop: 06/25/21 20:59 Last Admin: 06/08/21 20:11 Dose: 5 mg Documented by: Heparin Sodium (Porcine) (Heparin Sod 5,000 Unit/0.5 Ml Vial) 5,000 units SQ Q8 [facility] Stop: 07/08/21 13:59 Last Admin: 06/09/21 06:26 Dose: 5,000 units Documented by: Daptomycin 800 mg/ Syringe 16 mls @ 8 mls/min IV Q24H [facility]; Protocol Stop: 06/11/21 14:01 Last Admin: 06/08/21 14:54 Dose: 8 mls/min Documented by: Lactobacillus Acidoph/Casei/Rhamnos (Advanced Probiotic 1250 Mg Capsule) 2 cap PO DAILY [facility] Stop: 07/04/21 19:29 Last Admin: 06/08/21 11:04 Dose: 2 cap Documented by: Levothyroxine Sodium (Levothyroxine Sodium 88 Mcg Tablet) [facility] Stop: 06/25/21 06:29 Last Admin: 06/09/21 06:26 Dose: 88 mcg Documented by: Magnesium Oxide (Magnesium Oxide 400 Mg Tab) [facility] [place]: 07/07/21 08:59 Last Admin: 06/08/21 11:04 Dose: 400 mg Documented by: Menthol (Cough Drop (Sugar Free) Aquiles 24 Aquiles/1 Box) 1 aquiles BUCCAL PRN PRN PRN Reason: Cough Stop: 06/28/21 21:06 Last Admin: 05/30/21 00:02 Dose: 1 aquiles Documented by: Miscellaneous Information (Daptomycin Consult Active) 1 ea N/A UD PRN PRN Reason: Consult Stop: 06/30/21 12:01 Morphine Sulfate (Morphine Sulfate 4 Mg/Ml 1 Ml Carp\Vial) 3 mg IV Q4H PRN PRN Reason: Pain (7-10) Stop: 06/21/21 17:38 Last Admin: 06/09/21 03:57 Dose: 3 mg Documented by: Multivitamins (Multivitamin Tab) 1 tab PO [facility] Stop: 07/06/21 16:14 Last Admin: 06/08/21 11:05 Dose: 1 tab Documented by: Nitroglycerin (Nitroglycerin Sl 0.4 Mg/Tab Tab) 0.4 mg SL UD PRN PRN Reason: Chest Pain Stop: 06/24/21 23:44 Ondansetron HCl (Ondansetron Inj 2 Mg/Ml 2 Ml Vial) 4 mg IV Q6H PRN PRN Reason: Nausea Stop: 06/24/21 23:44 Last Admin: 06/08/21 11:46 Dose: 4 mg Documented by: Oxybutynin Chloride (Oxybutynin Chloride Xl 5 Mg Tabcr) 5 mg PO DAILY [facility] Stop: 06/25/21 08:59 Last Admin: 06/08/21 11:05 Dose: 5 mg Documented by: Oxycodone HCl (Oxycodone Hcl Ir 5 Mg Tab (Immediate Release)) 10 mg PO Q4H PRN PRN Reason: Pain Stop: 06/09/21 16:42 Last Admin: 06/09/21 03:06 Dose: 10 mg Documented by: Pantoprazole Sodium (Pantoprazole 40 Mg Tab) 40 mg PO [facility] Stop: 06/25/21 08:59 Last Admin: 06/08/21 11:05 Dose: 40 mg Documented by: Polyethylene Glycol (Polyethylene (Miralax) 17 Gm Pack) 17 gm PO DAILY [facility] Stop: 07/07/21 08:59 Last Admin: 06/08/21 11:05 Dose: 17 gm Documented by: Warfarin Sodium (Warfarin Sod 3 Mg Tab) 3 mg PO DAILY@1600 [facility] Stop: 07/07/21 15:59 Last Admin: 06/08/21 15:01 Dose: 3 mg Documented by: Zinc Sulfate (Zinc Sulfate 220 Mg Capsule) 220 mg PO QAM [facility] Stop: 07/06/21 16:14 Last Admin: 06/08/21 11:06 Dose: 220 mg Documented by: Zolpidem Tartrate (Zolpidem Tartrate 5 Mg Tab) 5 mg PO HS [facility] Stop: 06/25/21 20:59 Last Admin: 06/08/21 22:13 Dose: 5 mg Documented by:
[2021-06-09] MEDS: buPROPion SR 150 MG TABCR PO SCH (08:12)
[2021-06-09] MEDS: DULoxetine HCL 60 MG CAP PO SCH (08:12)
[2021-06-09] MEDS: CALCIUM CARBONATE 1250MG TAB PO SCH ×3 (08:12→20:39)
[2021-06-09] MEDS: DICLOFENAC SOD 1% GEL 100 GM TUBE EXT SCH ×2 (08:12→20:39)
[2021-06-09] MEDS: FLUTICASONE PROPIONATE NA SPR 16 GM BTL SCH (08:13)
[2021-06-09] MEDS: ADVANCED PROBIOTIC 1250 MG CAPSULE PO SCH (08:13)
[2021-06-09] MEDS: FERROUS SULFATE 325 MG TAB PO SCH ×2 (08:13→20:40)
[2021-06-09] MEDS: MULTIVITAMIN TAB PO SCH (08:13)
[2021-06-09] MEDS: MAGNESIUM OXIDE 400 MG TAB PO SCH (08:13)
[2021-06-09] MEDS: PANTOprazole 40 MG TAB PO SCH (08:14)
[2021-06-09] MEDS: OXYBUTYNIN CHLORIDE XL 5 MG TABCR PO SCH (08:14)
[2021-06-09] MEDS: POLYETHYLENE (MIRALAX) 17 GM PACK PO SCH (08:14)
[2021-06-09] MEDS: ZINC SULFATE 220 MG CAPSULE PO SCH (08:14)
[2021-06-09] MEDS: [UNRECOGNIZED DRUG - OTHER] PO SCH (13:57)
[2021-06-09] MEDS: DAPTOmycin 800 MG in SYRINGE 0 ML IV SCH (13:58)
[2021-06-09] MEDS: WARFARIN SOD 5 MG TAB PO SCH (15:52)
[2021-06-09] MEDS ORDERED: OPTIRAY 320 125ml IV ONE (16:21)
--- NOTE | 2021-06-09 17:21 | CT Scan Report ---
CT tib/fib LT w con CLINICAL HISTORY: cellulitis w/o improvement COMPARISON STUDY: CT of the left tibia and fibula June 02, 2021. TECHNIQUE: Axial images of the left tibia and fibula were obtained following intravenous injection of 120 cc of Optiray 320 IV. Sagittal and coronal reconstructions were viewed. Automated exposure contr ol was utilized for the study. A dose lowering technique was utilized adhering to the principles of ALARA. FINDINGS: Note is again made of extensive subcutaneous edema and skin thickening of the left lower le g which is similar to CT of June 02, 2021. No rim-enhancing fluid collection is identified to sugge st an abscess. There is no soft tissue gas. There is no acute fracture or evidence for acute osteomye litis within the left tibia or fibula. Multiple varicosities are again noted. Osteoarthritis of the l eft knee is noted. IMPRESSION: 1. Persistent extensive subcutaneous edema and skin thickening of the left lower leg which suggests c ellulitis. No rim-enhancing fluid collection to suggest an abscess. 2. No evidence for acute osteomyelitis within the left tibia or fibula. ACT 112: Negative or not required by law. Electronically signed by: Angel Hernandez M.D. 06/09/2021 5:19 PM
[2021-06-09] MEDS: ZOLPIDEM TARTRATE 5 MG TAB PO SCH (20:39)
[2021-06-09] MEDS: HYDROmorphone INJ 0.5 MG/0.5 ML SYR IV PRN (20:39)
[2021-06-09] MEDS: DOCUSATE SODIUM 100 MG CAP PO SCH (20:40)
[2021-06-09] MEDS: FOLIC ACID 1 MG TAB PO SCH (20:41)
[2021-06-10] MEDS ORDERED: oxyCODONE HCL IR 5 MG TAB (IMMEDIATE RELEASE) PO STA (00:49)
[2021-06-10] MEDS: HYDROmorphone INJ 0.5 MG/0.5 ML SYR IV PRN ×3 (06:03→18:44)
[2021-06-10] MEDS: ACETAMINOPHEN 500 MG TAB PO SCH ×3 (06:03→21:10)
[2021-06-10] MEDS: LEVOTHYROXINE SODIUM 88 MCG TABLET PO SCH (06:03)
[2021-06-10] MEDS: HEPARIN SOD 5,000 UNIT/0.5 ML VIAL SQ SCH ×3 (06:04→21:10)
[2021-06-10 06:57] LABS: Hematocrit (blood only) 33.6 % (37-47); Hemoglobin 10.6 g/dL (12.0-16.0); Mean Corpuscular Hemoglobin 30.5 pg (25-34); Mean Corpuscular Hgb Conc 31.5 g/dL (32-36); Mean Corpuscular Volume 96.6 fL (80-100); Mean Platelet Volume 9.4 fL (7.4-10.4); Platelet Count 513 K/uL (130-400); RDW Coefficient of Variation 15.2 % (11.5-14.5); RDW Standard Deviation 53.6 fL (36.4-46.3); Red Blood Count 3.48 M/uL (4.2-5.4); White Blood Count 8.34 K/uL (4.8-10.8)
[2021-06-10 07:28] LABS: BUN Creatinine Ratio 13.4 (10-20); Calcium 8.7 mg/dl (8.5-10.1); Creatinine Clr Calc Pharmacy 158.1 ml/min; Magnesium 2.2 mg/dl (1.8-2.4); Potassium 4.3 mmol/L (3.5-5.1)
--- NOTE | 2021-06-10 07:47 | Hospitalist Progress Note ---
Date of Service June 10, 2021 Assessment & Plan (1) Cellulitis of leg, left: Plan: Admitted with spreading cellulitis with lower leg wound on the left side Received outpatient doxycycline without any improvement Has been having fever with chills and WBC noted to be high at 18,000 Currently on Daptomycin and Unasyn. Currently she remains afebrile and WBC is WNL. However, LLE erythema still persistent, also ongoing edema (06/06 - now improved) Give IV Lasix [address] leg w con: Extensive subcutaneous edema and skin thickening within the left lower leg likely representing a cellulitis. No peripheral enhancing fluid collections to suggest an abscess. Wound culture - Coag negative Staph On Roxicodone 10 mg Q6H PRN for pain control. 06/05 - Patient continues to have pain in her leg, also prolonged hospital course Wound care nurse consulted We will discuss further with ID In addition concerned that daptomycin may be underdosed given her weight, BMI of over 70 06/06 -yesterday increased dose of daptomycin to 800 mg daily after discussing with ID -Clinically patient seems improved, pain in left lower extremity improved, erythema improved and also edema -Plan for 14-day course, patient interested in [facility] 06/07 - patient did not ambulate much yesterday however today she says she was in the chair, and also up to the bathroom twice, however with any ambulation she is in excruciating pain Given significant pain w/ambulation, plan to go home and follow-up with [facility] clinic may not be reasonable, and we will may need to discharge to SNF. CM aware. 06/09 -given significant pain, repeat CT scan of left lower extremity 1. Persistent extensive subcutaneous edema and skin thickening of the left lower leg which suggests cellulitis. No rim-enhancing fluid collection to suggest an abscess. 2. No evidence for acute osteomyelitis within the left tibia or fibula. (2) Supratherapeutic INR: Plan: Coumadin has been on hold since 05/28 due to supratherapeutic INR INR on 06/06 - 5.8 (down from 7.3 the previous day); continue holding coumadin. 06/07 - INR 2.3 She last received Coumadin on 06/02. At home on Coumadin on 5 mg and 10 mg dose. Restarted at 3 mg daily (on 06/07) INR 1.5, start heparin subq INR 1.2 (06/09) - increased warfarin dose Continue to closely monitor INR She will also need close INR monitoring as outpatient (3) Iron deficiency anemia: Plan: per pt she has hx of iron def anemia - baseline hgb 11-14 - hgb stable -11 - c/w iron supplement - FOBT pending - pt already on PPI (4) Factor V deficiency: (5) History of gastric bypass: Plan: No acute issue (6) Morbid obesity: Plan: Morbidly obese with sleep apnea not been using any CPAP and/or oxygen Patient says that she has official sleep study scheduled for July Obtained nocturnal pulse ox, patient needs 2 L of O2 via NC (7) Hypothyroidism: Plan: Continue supplement Other significant medical conditions including GERD, chronic pain, depression and hypertension remained stable (8) Cellulitis of leg, right: Plan: Has had cellulitis of the Right leg in April and required to be transferred to [place] on 04/14/2021 Required IR drainage for the fluid collection/abscess of the right leg Right leg is healed at this time Plan: PT and OT evaluation when patient can - dispo-questionable - SNF vs home PT/OT Admission and Anticipated Discharge Date Admission Date: May 25, 2021 Subjective Patient seen in follow-up of left lower extremity cellulitis No fevers, chills, chest pain, shortness of breath, no abdominal pain, nausea or vomiting Continues to have significant pain in her left lower extremity We will repeat CT scan of left lower extremity Concern for sleep apnea, patient has outpatient official sleep study scheduled for July, obtained nocturnal pulse ox, patient desaturated below 88% for longer than 5 minutes, was placed on 2 L Wound care consulted Infectious disease consulted Dietitian consult, for better healing and in a long run weight loss Discussed with the patient that ambulation may be a problem if she goes home and tries to follow-up with [facility] clinic, if she is in so much pain when ambulating. She is open to SNF. CM aware. Review of Systems Review of Systems: All systems reviewed & are unremarkable except as noted in Subjective Physical Exam Physical Exam: General: A&Ox3, morbidly obese F in NAD HEENT: NCAT, MMM, EOMI, PERRL Neck: Supple, normal range of motion CVS: normal rate and rhythm Resp: b/l good breath sounds Abdomen: Soft, ND/NT, +obese Extremities: LLE is edematous (edema improved), erythematous (erythema improved), warm to touch, opaque blister on posterior calf Neuro: Alert and oriented answers questions appropriately, no facial asymmetry, speech fluent, moves extremities Skin: warm and dry, LLE as above MSK: normal ROM, moves extremities Results & Data Results & Data ([facility]) Vital Signs (Past 12 Hours) Vital Signs Temp Pulse Pulse Resp BP Pulse Ox 06/10/21 07:05 36.7 C 82 20 123/72 92 06/10/21 02:57 36.7 C 76 18 107/66 93 06/10/21 01:21 84 06/09/21 22:00 37.2 C 83 18 105/69 94 Laboratory Results 06/10/21 06/10/21 Range/Units 06:28 06:28 WBC 8.34 (4.8-10.8) K/uL RBC 3.48 L (4.2-5.4) M/uL Hgb 10.6 L (12.0-16.0) g/dL Hct 33.6 L (37-47) % MCV 96.6 (80-100) fL MCH 30.5 (25-34) pg MCHC 31.5 L (32-36) g/dL RDW Std Deviation 53.6 H (36.4-46.3) fL RDW Coeff of Deandre 15.2 H (11.5-14.5) % Plt Count 513 H (130-400) K/uL MPV 9.4 (7.4-10.4) fL Sodium 138 (136-145) mmol/L Potassium 4.3 (3.5-5.1) mmol/L Chloride 105 (98-107) mmol/L Carbon Dioxide 29 (21-32) mmol/L Anion Gap 4.0 (3-11) BUN 10 (7-18) mg/dl Creatinine 0.73 (0.6-1.2) mg/dl Est Cr Clr Drug Dosing 158.1 ml/min Est GFR ( Amer) 109.0 ml/min Est GFR (Non-Af Amer) 94.0 ml/min BUN/Creatinine Ratio 13.4 (10-20) Glucose 94 (70-99) mg/dl Calcium 8.7 (8.5-10.1) mg/dl Phosphorus 4.0 (2.5-4.9) mg/dl Magnesium 2.2 (1.8-2.4) mg/dl Total Creatine Kinase 36 (26-192) U/L Medications Administered Current Inpatient Medications Acetaminophen (Acetaminophen 500 Mg Tab) 1,000 mg PO Q8 [facility] Stop: 07/05/21 10:59 Last Admin: 06/10/21 21:10 Dose: 1,000 mg Documented by: Bupropion HCl (W) 150 mg PO 1300 [facility] Stop: 06/25/21 12:59 Last Admin: 06/10/21 13:00 Dose: 150 mg Documented by: Bupropion HCl (Bupropion Sr 150 Mg Tabcr) 300 mg PO QAM [facility] Stop: 06/25/21 08:59 Last Admin: 06/10/21 08:34 Dose: 300 mg Documented by: Calcium Carbonate (Calcium Carbonate 1250mg Tab) 1,250 mg PO TID [facility] Stop: 06/25/21 08:59 Last Admin: 06/10/21 20:27 Dose: 1,250 mg Documented by: Cyclobenzaprine HCl (Cyclobenzaprine Hcl 10 Mg Tab) 5 mg PO HS PRN PRN Reason: MUSCLE SPASMS Stop: 06/25/21 00:27 Last Admin: 05/29/21 20:43 Dose: 5 mg Documented by: Diclofenac Sodium (Diclofenac Sod 1% Gel 100 Gm Tube) 4 gm EXT BID [facility] Stop: 06/26/21 20:59 Last Admin: 06/10/21 21:11 Dose: 4 gm Documented by: Docusate Sodium (Docusate Sodium 100 Mg Cap) 100 mg PO HS [facility] Stop: 07/07/21 20:59 Last Admin: 06/10/21 20:28 Dose: 100 mg Documented by: Duloxetine HCl (Duloxetine Hcl 60 Mg Cap) 60 mg PO QAM [facility] Stop: 06/25/21 08:59 Last Admin: 06/10/21 08:34 Dose: 60 mg Documented by: Ferrous Sulfate (Ferrous Sulfate 325 Mg Tab) 325 mg PO BID [facility] Stop: 07/02/21 20:59 Last Admin: 06/10/21 20:28 Dose: 325 mg Documented by: Fexofenadine HCl (Fexofenadine 60 Mg Tab) 60 mg PO Q12H PRN PRN Reason: Allergy Symptoms Stop: 06/25/21 00:29 Last Admin: 06/01/21 10:21 Dose: 60 mg Documented by: Fluticasone Propionate (Fluticasone Propionate Na Spr 16 Gm Btl) 2 sprays NA DAILY [facility] Stop: 06/25/21 08:59 Last Admin: 06/10/21 08:33 Dose: 2 sprays Documented by: Folic Acid (Folic Acid 1 Mg Tab) 5 mg PO HS [facility] Stop: 06/25/21 20:59 Last Admin: 06/10/21 20:29 Dose: 5 mg Documented by: Heparin Sodium (Porcine) (Heparin Sod 5,000 Unit/0.5 Ml Vial) 5,000 units SQ Q8 [facility] Stop: 07/08/21 13:59 Last Admin: 06/10/21 21:10 Dose: 5,000 units Documented by: Hydromorphone HCl (Hydromorphone Inj 0.5 Mg/0.5 Ml Syr) 0.5 mg IV Q3H PRN PRN Reason: Pain (7-10) Stop: 06/23/21 15:52 Last Admin: 06/10/21 18:44 Dose: 0.5 mg Documented by: Daptomycin 800 mg/ Syringe 16 mls @ 8 mls/min IV Q24H [facility]; Protocol Stop: 06/11/21 14:01 Last Admin: 06/10/21 13:03 Dose: 8 mls/min Documented by: Lactobacillus Acidoph/Casei/Rhamnos (Advanced Probiotic 1250 Mg Capsule) 2 cap PO DAILY [facility] Stop: 07/04/21 19:29 Last Admin: 06/10/21 08:33 Dose: 2 cap Documented by: Levothyroxine Sodium (Levothyroxine Sodium 88 Mcg Tablet) 88 mcg PO DAILYBB [facility] Stop: 06/25/21 06:29 Last Admin: 06/10/21 06:03 Dose: 88 mcg Documented by: Magnesium Oxide (Magnesium Oxide 400 Mg Tab) 400 mg PO QAM [facility] Stop: 07/07/21 08:59 Last Admin: 06/10/21 08:34 Dose: 400 mg Documented by: Menthol (Cough Drop (Sugar Free) Aquiles 24 Aquiles/1 Box) 1 aquiles BUCCAL PRN PRN PRN Reason: Cough Stop: 06/28/21 21:06 Last Admin: 05/30/21 00:02 Dose: 1 aquiles Documented by: Miscellaneous Information (Daptomycin Consult Active) 1 ea N/A UD PRN PRN Reason: Consult Stop: 06/30/21 12:01 Multivitamins (Multivitamin Tab) [facility] [place]: 07/06/21 16:14 Last Admin: 06/10/21 08:34 Dose: 1 tab Documented by: Nitroglycerin (Nitroglycerin Sl 0.4 Mg/Tab Tab) 0.4 mg SL UD PRN PRN Reason: Chest Pain Stop: 06/24/21 23:44 Ondansetron HCl (Ondansetron Inj 2 Mg/Ml 2 Ml Vial) 4 mg IV Q6H PRN PRN Reason: Nausea Stop: 06/24/21 23:44 Last Admin: 06/08/21 11:46 Dose: 4 mg Documented by: Oxybutynin Chloride (Oxybutynin Chloride Xl 5 Mg Tabcr) 5 mg PO DAILY [facility] Stop: 06/25/21 08:59 Last Admin: 06/10/21 08:34 Dose: 5 mg Documented by: Oxycodone HCl (Oxycodone Hcl Ir 5 Mg Tab (Immediate Release)) 10 mg PO Q4H PRN PRN Reason: Pain (4-6) Stop: 06/24/21 08:26 Last Admin: 06/10/21 20:26 Dose: 10 mg Documented by: Oxycodone HCl (Oxycodone Hcl Ir 5 Mg Tab (Immediate Release)) 5 mg PO Q2H PRN PRN Reason: pain (2-3) Stop: 06/24/21 08:29 Pantoprazole Sodium (Pantoprazole 40 Mg Tab) 40 mg PO QAM [facility] Stop: 06/25/21 08:59 Last Admin: 06/10/21 08:34 Dose: 40 mg Documented by: Polyethylene Glycol (Polyethylene (Miralax) 17 Gm Pack) 17 gm PO DAILY [facility] Stop: 07/07/21 08:59 Last Admin: 06/10/21 08:34 Dose: 17 gm Documented by: Warfarin Sodium (Warfarin Sod 5 Mg Tab) 5 mg PO DAILY@1600 [facility] Stop: 07/09/21 15:59 Last Admin: 06/10/21 15:21 Dose: 5 mg Documented by: Zinc Sulfate (Zinc Sulfate 220 Mg Capsule) 220 mg PO QAM [facility] Stop: 07/06/21 16:14 Last Admin: 06/10/21 08:34 Dose: 220 mg Documented by: Zolpidem Tartrate (Zolpidem Tartrate 5 Mg Tab) 5 mg PO [facility] Stop: 06/25/21 20:59 Last Admin: 06/10/21 21:09 Dose: 5 mg Documented by:
[2021-06-10] MEDS ORDERED: oxyCODONE HCL IR 5 MG TAB (IMMEDIATE RELEASE) PO PRN (08:27)
[2021-06-10] MEDS: ADVANCED PROBIOTIC 1250 MG CAPSULE PO SCH (08:33)
[2021-06-10] MEDS: FLUTICASONE PROPIONATE NA SPR 16 GM BTL SCH (08:33)
[2021-06-10] MEDS: CALCIUM CARBONATE 1250MG TAB PO SCH ×3 (08:34→20:27)
[2021-06-10] MEDS: PANTOprazole 40 MG TAB PO SCH (08:34)
[2021-06-10] MEDS: MAGNESIUM OXIDE 400 MG TAB PO SCH (08:34)
[2021-06-10] MEDS: POLYETHYLENE (MIRALAX) 17 GM PACK PO SCH (08:34)
[2021-06-10] MEDS: DULoxetine HCL 60 MG CAP PO SCH (08:34)
[2021-06-10] MEDS: MULTIVITAMIN TAB PO SCH (08:34)
[2021-06-10] MEDS: ZINC SULFATE 220 MG CAPSULE PO SCH (08:34)
[2021-06-10] MEDS: FERROUS SULFATE 325 MG TAB PO SCH ×2 (08:34→20:28)
[2021-06-10] MEDS: OXYBUTYNIN CHLORIDE XL 5 MG TABCR PO SCH (08:34)
[2021-06-10] MEDS: DICLOFENAC SOD 1% GEL 100 GM TUBE EXT SCH ×2 (08:34→21:11)
[2021-06-10] MEDS: buPROPion SR 150 MG TABCR PO SCH (08:34)
[2021-06-10] MEDS: [UNRECOGNIZED DRUG - OTHER] PO SCH (13:00)
[2021-06-10] MEDS: DAPTOmycin 800 MG in SYRINGE 0 ML IV SCH (13:03)
[2021-06-10] MEDS: oxyCODONE HCL IR 5 MG TAB (IMMEDIATE RELEASE) PO PRN ×2 (15:21→20:26)
[2021-06-10] MEDS: WARFARIN SOD 5 MG TAB PO SCH (15:21)
[2021-06-10] MEDS: DOCUSATE SODIUM 100 MG CAP PO SCH (20:28)
[2021-06-10] MEDS: FOLIC ACID 1 MG TAB PO SCH (20:29)
[2021-06-10] MEDS: ZOLPIDEM TARTRATE 5 MG TAB PO SCH (21:09)
[2021-06-11] MEDS: oxyCODONE HCL IR 5 MG TAB (IMMEDIATE RELEASE) PO PRN ×3 (03:05→17:12)
[2021-06-11] MEDS: HYDROmorphone INJ 0.5 MG/0.5 ML SYR IV PRN ×6 (04:28→22:15)
[2021-06-11] MEDS: HEPARIN SOD 5,000 UNIT/0.5 ML VIAL SQ SCH ×3 (06:07→20:49)
[2021-06-11] MEDS: LEVOTHYROXINE SODIUM 88 MCG TABLET PO SCH (06:07)
[2021-06-11] MEDS: ACETAMINOPHEN 500 MG TAB PO SCH ×3 (06:07→20:48)
[2021-06-11] MEDS: POLYETHYLENE (MIRALAX) 17 GM PACK PO SCH (07:40)
[2021-06-11] MEDS: PANTOprazole 40 MG TAB PO SCH (07:45)
[2021-06-11] MEDS: MULTIVITAMIN TAB PO SCH (07:45)
[2021-06-11] MEDS: ZINC SULFATE 220 MG CAPSULE PO SCH (07:45)
[2021-06-11] MEDS: DICLOFENAC SOD 1% GEL 100 GM TUBE EXT SCH ×2 (07:46→20:33)
[2021-06-11] MEDS: OXYBUTYNIN CHLORIDE XL 5 MG TABCR PO SCH (07:46)
[2021-06-11] MEDS: buPROPion SR 150 MG TABCR PO SCH (07:46)
[2021-06-11] MEDS: FERROUS SULFATE 325 MG TAB PO SCH ×2 (07:46→20:47)
[2021-06-11] MEDS: MAGNESIUM OXIDE 400 MG TAB PO SCH (07:46)
[2021-06-11] MEDS: CALCIUM CARBONATE 1250MG TAB PO SCH ×3 (07:46→20:48)
[2021-06-11] MEDS: DULoxetine HCL 60 MG CAP PO SCH (07:46)
[2021-06-11] MEDS: ADVANCED PROBIOTIC 1250 MG CAPSULE PO SCH (07:46)
[2021-06-11] MEDS: FLUTICASONE PROPIONATE NA SPR 16 GM BTL SCH (07:48)
[2021-06-11 07:55] LABS: INR 1.3 (0.9-1.1); Prothrombin Time 13.1 Seconds (9.0-12.0)
[2021-06-11 08:21] LABS: BUN Creatinine Ratio 17.1 (10-20); Creatinine Clr Calc Pharmacy 158.6 ml/min; Magnesium 2.3 mg/dl (1.8-2.4); Phosphorus 4.1 mg/dl (2.5-4.9); Potassium 4.3 mmol/L (3.5-5.1)
[2021-06-11] MEDS: [UNRECOGNIZED DRUG - OTHER] PO SCH (12:05)
[2021-06-11] MEDS ORDERED: FUROSEMIDE 20 MG in SYRINGE 0 ML IV ONE (13:15)
--- NOTE | 2021-06-11 13:24 | Hospitalist Progress Note ---
Date of Service June 11, 2021 Assessment & Plan (1) Cellulitis of leg, left: Plan: Admitted with spreading cellulitis with lower leg wound on the left side Received outpatient doxycycline without any improvement Has been having fever with chills and WBC noted to be high at 18,000 Currently on Daptomycin and Unasyn. Currently she remains afebrile and WBC is WNL. However, LLE erythema still persistent, also ongoing edema (06/06 - now improved) Give IV Lasix [address] leg w con: Extensive subcutaneous edema and skin thickening within the left lower leg likely representing a cellulitis. No peripheral enhancing fluid collections to suggest an abscess. Wound culture - Coag negative Staph On Roxicodone 10 mg Q6H PRN for pain control. 06/05 - Patient continues to have pain in her leg, also prolonged hospital course Wound care nurse consulted We will discuss further with ID In addition concerned that daptomycin may be underdosed given her weight, BMI of over 70 06/06 -yesterday increased dose of daptomycin to 800 mg daily after discussing with ID -Clinically patient seems improved, pain in left lower extremity improved, erythema improved and also edema -Plan for 14-day course, patient interested in MTU 06/07 - patient did not ambulate much yesterday however today she says she was in the chair, and also up to the bathroom twice, however with any ambulation she is in excruciating pain Given significant pain w/ambulation, plan to go home and follow-up with MTU clinic may not be reasonable, and we will may need to discharge to SNF. CM aware. 06/09 -given significant pain, repeat CT scan of left lower extremity 1. Persistent extensive subcutaneous edema and skin thickening of the left lower leg which suggests cellulitis. No rim-enhancing fluid collection to suggest an abscess. 2. No evidence for acute osteomyelitis within the left tibia or fibula. 06/11 -asked wound care nurse to evaluate the patient again, and evaluate the posterior plaque. Able to wash off most of the plaque. Also asked for culture. Will await further evaluation and recommendations (2) Supratherapeutic INR: Plan: Coumadin has been on hold since 05/28 due to supratherapeutic INR INR on 06/06 - 5.8 (down from 7.3 the previous day); continue holding coumadin. 06/07 - INR 2.3 She last received Coumadin on 06/02. At home on Coumadin on 5 mg and 10 mg dose. Restarted at 3 mg daily (on 06/07) INR 1.5, start heparin subq INR 1.2 (06/09) - increased warfarin dose 06/11 -INR still subtherapeutic, increased warfarin dose again - now to 10 mg Continue to closely monitor INR She will also need close INR monitoring as outpatient (3) Iron deficiency anemia: Plan: per pt she has hx of iron def anemia - baseline hgb 11-14 - hgb stable 07-15 - c/w iron supplement - FOBT pending - pt already on PPI (4) Factor V deficiency: (5) History of gastric bypass: Plan: No acute issue (6) Morbid obesity: Plan: Morbidly obese with sleep apnea not been using any CPAP and/or oxygen Patient says that she has official sleep study scheduled for July Obtained nocturnal pulse ox, patient needs 2 L of O2 via NC (7) Hypothyroidism: Plan: Continue supplement Other significant medical conditions including GERD, chronic pain, depression and hypertension remained stable (8) Cellulitis of leg, right: Plan: Has had cellulitis of the Right leg in April and required to be transferred to [place] on 04/14/2021 Required IR drainage for the fluid collection/abscess of the right leg Right leg is healed at this time Plan: PT and OT evaluation when patient can - disposition - likely SNF Admission and Anticipated Discharge Date Admission Date: May 25, 2021 Subjective Patient seen in follow-up of left lower extremity cellulitis No fevers, chills, chest pain, shortness of breath, no abdominal pain, nausea or vomiting Continues to have pain in her left lower extremity Concern for sleep apnea, patient has outpatient official sleep study scheduled for July, obtained nocturnal pulse ox, patient desaturated below 88% for longer than 5 minutes, was placed on 2 L Wound care consulted Infectious disease consulted Dietitian consult, for better healing and in a long run weight loss Plan to DC to SNF due to pain with ambulation. Review of Systems Review of Systems: All systems reviewed & are unremarkable except as noted in Subjective Physical Exam Physical Exam: General: A&Ox3, morbidly obese F in NAD HEENT: NCAT, MMM, EOMI, PERRL Neck: Supple, normal range of motion CVS: normal rate and rhythm Resp: b/l good breath sounds Abdomen: Soft, ND/NT, +obese Extremities: LLE is edematous (edema improved), erythematous (erythema improved), warm to touch, opaque blister on posterior calf Neuro: Alert and oriented answers questions appropriately, no facial asymmetry, speech fluent, moves extremities Skin: warm and dry, LLE as above MSK: normal ROM, moves extremities Results & Data Results & Data ([facility]) Vital Signs (Past 12 Hours) Vital Signs Temp Pulse Pulse Resp BP Pulse Ox 06/11/21 11:34 36.8 C 79 18 137/76 92 06/11/21 10:10 80 06/11/21 07:17 36.6 C 78 18 116/70 94 06/11/21 02:59 36.5 C 77 20 122/72 91 Laboratory Results 06/11/21 06/11/21 Range/Units 07:18 07:18 PT 13.1 H (9.0-12.0) Seconds INR 1.3 H (0.9-1.1) Sodium 140 (136-145) mmol/L Potassium 4.3 (3.5-5.1) mmol/L Chloride 103 (98-107) mmol/L Carbon Dioxide 30 (21-32) mmol/L Anion Gap 7.0 (3-11) BUN 13 (7-18) mg/dl Creatinine 0.73 (0.6-1.2) mg/dl Est Cr Clr Drug Dosing 158.6 ml/min Est GFR ( Amer) 109.0 ml/min Est GFR (Non-Af Amer) 94.0 ml/min BUN/Creatinine Ratio 17.1 (10-20) Glucose 92 (70-99) mg/dl Calcium 9.0 (8.5-10.1) mg/dl Phosphorus 4.1 (2.5-4.9) mg/dl Magnesium 2.3 (1.8-2.4) mg/dl Medications Administered Current Inpatient Medications Acetaminophen (Acetaminophen 500 Mg Tab) 1,000 mg PO Q8 MICHELLE Stop: 07/05/21 10:59 Last Admin: 06/11/21 06:07 Dose: 1,000 mg Documented by: Bupropion HCl (W) 150 mg PO 1300 MICHELLE Stop: 06/25/21 12:59 Last Admin: 06/11/21 12:05 Dose: 150 mg Documented by: Bupropion HCl (Bupropion Sr 150 Mg Tabcr) 300 mg PO QAM [facility] Stop: 06/25/21 08:59 Last Admin: 06/11/21 07:46 Dose: 300 mg Documented by: Calcium Carbonate (Calcium Carbonate 1250mg Tab) 1,250 mg PO TID [facility] Stop: 06/25/21 08:59 Last Admin: 06/11/21 07:46 Dose: 1,250 mg Documented by: Cyclobenzaprine HCl (Cyclobenzaprine Hcl 10 Mg Tab) 5 mg PO HS PRN PRN Reason: MUSCLE SPASMS Stop: 06/25/21 00:27 Last Admin: 05/29/21 20:43 Dose: 5 mg Documented by: Diclofenac Sodium (Diclofenac Sod 1% Gel 100 Gm Tube) 4 gm EXT BID [facility] Stop: 06/26/21 20:59 Last Admin: 06/11/21 07:46 Dose: 4 gm Documented by: Docusate Sodium (Docusate Sodium 100 Mg Cap) 100 mg PO HS [facility] Stop: 07/07/21 20:59 Last Admin: 06/10/21 20:28 Dose: 100 mg Documented by: Duloxetine HCl (Duloxetine Hcl 60 Mg Cap) 60 mg PO QAM [facility] Stop: 06/25/21 08:59 Last Admin: 06/11/21 07:46 Dose: 60 mg Documented by: Ferrous Sulfate (Ferrous Sulfate 325 Mg Tab) 325 mg PO BID [facility] Stop: 07/02/21 20:59 Last Admin: 06/11/21 07:46 Dose: 325 mg Documented by: Fexofenadine HCl (Fexofenadine 60 Mg Tab) 60 mg PO Q12H PRN PRN Reason: Allergy Symptoms Stop: 06/25/21 00:29 Last Admin: 06/01/21 10:21 Dose: 60 mg Documented by: Fluticasone Propionate (Fluticasone Propionate Na Spr 16 Gm Btl) 2 sprays NA DAILY [facility] Stop: 06/25/21 08:59 Last Admin: 06/11/21 07:48 Dose: 2 sprays Documented by: Folic Acid (Folic Acid 1 Mg Tab) 5 mg PO HS [facility] Stop: 06/25/21 20:59 Last Admin: 06/10/21 20:29 Dose: 5 mg Documented by: Heparin Sodium (Porcine) (Heparin Sod 5,000 Unit/0.5 Ml Vial) 5,000 units SQ Q8 [facility] Stop: 07/08/21 13:59 Last Admin: 06/11/21 06:07 Dose: 5,000 units Documented by: Hydromorphone HCl (Hydromorphone Inj 0.5 Mg/0.5 Ml Syr) 0.5 mg IV Q3H PRN PRN Reason: Pain (7-10) Stop: 06/23/21 15:52 Last Admin: 06/11/21 12:05 Dose: 0.5 mg Documented by: Daptomycin 800 mg/ Syringe 16 mls @ 8 mls/min IV Q24H [facility]; Protocol Stop: 06/11/21 14:01 Last Admin: 06/10/21 13:03 Dose: 8 mls/min Documented by: Lactobacillus Acidoph/Casei/Rhamnos (Advanced Probiotic 1250 Mg Capsule) 2 cap PO DAILY [facility] Stop: 07/04/21 19:29 Last Admin: 06/11/21 07:46 Dose: 2 cap Documented by: Levothyroxine Sodium (Levothyroxine Sodium 88 Mcg Tablet) [facility] Stop: 06/25/21 06:29 Last Admin: 06/11/21 06:07 Dose: 88 mcg Documented by: Magnesium Oxide (Magnesium Oxide 400 Mg Tab) 400 mg PO QAM [facility] Stop: 07/07/21 08:59 Last Admin: 06/11/21 07:46 Dose: 400 mg Documented by: Menthol (Cough Drop (Sugar Free) Aquiles 24 Aquiles/1 Box) 1 aquiles BUCCAL PRN PRN PRN Reason: Cough Stop: 06/28/21 21:06 Last Admin: 05/30/21 00:02 Dose: 1 aquiles Documented by: Miscellaneous Information (Daptomycin Consult Active) 1 ea N/A UD PRN PRN Reason: Consult Stop: 06/30/21 12:01 Multivitamins ([facility]amin Tab) [facility] Stop: 07/06/21 16:14 Last Admin: 06/11/21 07:45 Dose: 1 tab Documented by: Nitroglycerin (Nitroglycerin Sl 0.4 Mg/Tab Tab) 0.4 mg SL UD PRN PRN Reason: Chest Pain Stop: 06/24/21 23:44 Ondansetron HCl (Ondansetron Inj 2 Mg/Ml 2 Ml Vial) 4 mg IV Q6H PRN PRN Reason: Nausea Stop: 06/24/21 23:44 Last Admin: 06/08/21 11:46 Dose: 4 mg Documented by: Oxybutynin Chloride (Oxybutynin Chloride Xl 5 Mg Tabcr) 5 mg PO DAILY [facility] Stop: 06/25/21 08:59 Last Admin: 06/11/21 07:46 Dose: 5 mg Documented by: Oxycodone HCl (Oxycodone Hcl Ir 5 Mg Tab (Immediate Release)) 10 mg PO Q4H PRN PRN Reason: Pain (4-6) Stop: 06/24/21 08:26 Last Admin: 06/11/21 10:41 Dose: 10 mg Documented by: Oxycodone HCl (Oxycodone Hcl Ir 5 Mg Tab (Immediate Release)) 5 mg PO Q2H PRN PRN Reason: pain (2-3) Stop: 06/24/21 08:29 Pantoprazole Sodium (Pantoprazole 40 Mg Tab) 40 mg PO QAM [facility] Stop: 06/25/21 08:59 Last Admin: 06/11/21 07:45 Dose: 40 mg Documented by: Polyethylene Glycol (Polyethylene (Miralax) 17 Gm Pack) 17 gm PO DAILY [facility] Stop: 07/07/21 08:59 Last Admin: 06/11/21 07:40 Dose: Not Given Documented by: Warfarin Sodium (Warfarin Sod 5 Mg Tab) 5 mg PO DAILY@1600 [facility] Stop: 07/09/21 15:59 Last Admin: 06/10/21 15:21 Dose: 5 mg Documented by: Zinc Sulfate (Zinc Sulfate 220 Mg Capsule) [facility] Stop: 07/06/21 16:14 Last Admin: 06/11/21 07:45 Dose: 220 mg Documented by: Zolpidem Tartrate (Zolpidem Tartrate 5 Mg Tab) 5 mg PO HS [facility] Stop: 06/25/21 20:59 Last Admin: 06/10/21 21:09 Dose: 5 mg Documented by:
[2021-06-11] MEDS: DAPTOmycin 800 MG in SYRINGE 0 ML IV SCH (13:36)
[2021-06-11] MEDS: FEXOFENADINE 60 MG TAB PO PRN (15:16)
[2021-06-11] MEDS: WARFARIN SOD 10 MG TAB PO SCH (16:08)
[2021-06-11] MEDS: DOCUSATE SODIUM 100 MG CAP PO SCH (20:46)
[2021-06-11] MEDS: ZOLPIDEM TARTRATE 5 MG TAB PO SCH (20:46)
[2021-06-11] MEDS: FOLIC ACID 1 MG TAB PO SCH (20:47)
[2021-06-12] MEDS: oxyCODONE HCL IR 5 MG TAB (IMMEDIATE RELEASE) PO PRN ×3 (02:02→14:01)
[2021-06-12] MEDS: HEPARIN SOD 5,000 UNIT/0.5 ML VIAL SQ SCH ×3 (05:45→21:13)
[2021-06-12] MEDS: LEVOTHYROXINE SODIUM 88 MCG TABLET PO SCH (05:46)
[2021-06-12] MEDS: ACETAMINOPHEN 500 MG TAB PO SCH ×3 (05:47→21:10)
[2021-06-12 07:40] LABS: INR 1.4 (0.9-1.1); Prothrombin Time 13.6 Seconds (9.0-12.0)
[2021-06-12 07:49] LABS: BUN Creatinine Ratio 15.4 (10-20); Calcium 8.8 mg/dl (8.5-10.1); Creatinine Clr Calc Pharmacy 143.2 ml/min; Est GFR (African American) 96.1 ml/min; Est GFR (Non-African American) 82.9 ml/min; Potassium 3.9 mmol/L (3.5-5.1)
[2021-06-12] MEDS: FERROUS SULFATE 325 MG TAB PO SCH ×2 (09:29→21:12)
[2021-06-12] MEDS: MULTIVITAMIN TAB PO SCH (09:29)
[2021-06-12] MEDS: MAGNESIUM OXIDE 400 MG TAB PO SCH (09:29)
[2021-06-12] MEDS: CALCIUM CARBONATE 1250MG TAB PO SCH ×3 (09:29→21:11)
[2021-06-12] MEDS: ADVANCED PROBIOTIC 1250 MG CAPSULE PO SCH (09:29)
[2021-06-12] MEDS: buPROPion SR 150 MG TABCR PO SCH (09:29)
[2021-06-12] MEDS: PANTOprazole 40 MG TAB PO SCH (09:30)
[2021-06-12] MEDS: ZINC SULFATE 220 MG CAPSULE PO SCH (09:30)
[2021-06-12] MEDS: DICLOFENAC SOD 1% GEL 100 GM TUBE EXT SCH ×3 (09:30→21:05)
[2021-06-12] MEDS: POLYETHYLENE (MIRALAX) 17 GM PACK PO SCH (09:30)
[2021-06-12] MEDS: OXYBUTYNIN CHLORIDE XL 5 MG TABCR PO SCH (09:30)
[2021-06-12] MEDS: FEXOFENADINE 60 MG TAB PO PRN (09:30)
[2021-06-12] MEDS: DULoxetine HCL 60 MG CAP PO SCH (09:30)
[2021-06-12] MEDS: FLUTICASONE PROPIONATE NA SPR 16 GM BTL SCH (09:31)
[2021-06-12] MEDS: ONDANSETRON INJ 2 MG/ML 2 ML VIAL IV PRN (10:43)
[2021-06-12] MEDS: [UNRECOGNIZED DRUG - OTHER] PO SCH (12:31)
[2021-06-12] MEDS: HYDROmorphone INJ 0.5 MG/0.5 ML SYR IV PRN ×3 (12:31→21:13)
[2021-06-12] MEDS: DAPTOmycin 800 MG in SYRINGE 0 ML IV SCH (14:01)
[2021-06-12] MEDS: WARFARIN SOD 10 MG TAB PO SCH (16:51)
--- NOTE | 2021-06-12 20:44 | Hospitalist Progress Note ---
Date of Service June 12, 2021 Assessment & Plan (1) Cellulitis of leg, left: (2) Supratherapeutic INR: Plan: #. Cellulitis of leg, left: Admitted with spreading cellulitis with lower leg wound on the left side Failure of outpatient doxycycline treatment. Was having fever at the time of presentation. CT leg with contrast showed extensive subcutaneous edema and skin thickening within the left lower leg likely representing a cellulitis. No peripheral enhancing fluid collection to suggest an abscess. No evidence of osteomyelitis Wound culture: Coagulase-negative staph 06/11 -asked wound care nurse to evaluate the patient again, and evaluate the posterior plaque. Able to wash off most of the plaque. Also asked for culture. Does not need surgical evaluation. ID consulted: Daptomycin for total of 14 days, follow-up with CPK monitoring. Patient's left lower extremity cellulitis is improving and she had been afebrile with normal WBC Erythema improving, swelling and pain still persistent. Can use as needed Lasix and as needed Roxicodone. #. Supratherapeutic INR: Coumadin has been on hold since 05/28 due to supratherapeutic INR INR on 06/06 - 5.8 (down from 7.3 the previous day) At home on Coumadin on 5 mg and 10 mg dose. Restarted at 3 mg daily (on 06/07) INR 1.5, start heparin subq INR 1.2 (06/09) - increased warfarin dose 06/11 -INR still subtherapeutic, increased warfarin dose again - now to 10 mg Continue to closely monitor INR She will also need close INR monitoring as outpatient #. Iron deficiency anemia: per pt she has hx of iron def anemia - baseline hgb 11-14 - hgb stable - - c/w iron supplement - FOBT pending - pt already on PPI #. Factor V deficiency: #. History of gastric bypass: No acute issue #. Morbid obesity: Morbidly obese with sleep apnea not been using any CPAP and/or oxygen Patient says that she has official sleep study scheduled for July Obtained nocturnal pulse ox, patient needs 2 L of O2 via NC #. Hypothyroidism: Continue supplement Other significant medical conditions including GERD, chronic pain, depression and hypertension remained stable #. Cellulitis of leg, right: Has had cellulitis of the Right leg in April and required to be transferred to [place] on 04/14/2021 Required IR drainage for the fluid collection/abscess of the right leg Right leg is healed at this time Disposition: Awaiting SNF placement. Can be discharged once he gets placement. Admission and Anticipated Discharge Date Admission Date: May 25, 2021 Subjective Patient was sitting up in bed, on room air, NAD. Patient reports left lower extremity pain after wound manipulation yesterday evening. Denies any headache/dizziness/chest pain/other review of symptoms. She is eating and moving bowels at baseline. Physical Exam 2 Physical Exam: GENERAL: Alert and oriented x3. NAD, on RA. HEENT: No pallor, no icterus. Pupils equal, round and reactive to light. Oral mucosa moist. NECK: No JVD, no neck masses. HEART: S1 and S2 heard. Regular rate and rhythm. No murmur, no gallop. RESPIRATORY SYSTEM: Normal AP diameter. No accessory muscle use. No wheezing, no crackles. ABDOMEN: Soft, bowel sounds present, nontender, no distention. CENTRAL NERVOUS SYSTEM: Alert and oriented x3. No facial droop. Speech is clear. Obeys simple commands. Moves extremities. EXTREMITIES: No edema, no erythema seen. Right lower extremity had chronic skin changes. Left lower extremity erythematous/tender with improving cellulitis. Approximately 10 to 12 cm whitish plaque noted over the wound. No fluctuations noted. Results & Data Results & Data ([facility]) Vital Signs (Past 12 Hours) Vital Signs Temp Pulse Resp BP Pulse Ox 06/12/21 18:24 36.8 C 87 20 115/59 L 97 06/12/21 15:32 36.9 C 83 18 104/55 L 93 06/12/21 11:13 36.8 C 80 18 112/69 94
[2021-06-12] MEDS: ZOLPIDEM TARTRATE 5 MG TAB PO SCH (21:09)
[2021-06-12] MEDS: DOCUSATE SODIUM 100 MG CAP PO SCH (21:11)
[2021-06-12] MEDS: FOLIC ACID 1 MG TAB PO SCH (21:12)
[2021-06-13] MEDS: oxyCODONE HCL IR 5 MG TAB (IMMEDIATE RELEASE) PO PRN ×3 (03:13→18:00)
[2021-06-13] MEDS: ACETAMINOPHEN 500 MG TAB PO SCH ×3 (06:22→22:21)
[2021-06-13] MEDS: HEPARIN SOD 5,000 UNIT/0.5 ML VIAL SQ SCH (06:22)
[2021-06-13] MEDS: LEVOTHYROXINE SODIUM 88 MCG TABLET PO SCH (06:22)
[2021-06-13] MEDS: DULoxetine HCL 60 MG CAP PO SCH (08:08)
[2021-06-13] MEDS: FERROUS SULFATE 325 MG TAB PO SCH ×2 (08:09→20:13)
[2021-06-13] MEDS: CALCIUM CARBONATE 1250MG TAB PO SCH ×3 (08:09→20:14)
[2021-06-13] MEDS: PANTOprazole 40 MG TAB PO SCH (08:09)
[2021-06-13] MEDS: buPROPion SR 150 MG TABCR PO SCH (08:10)
[2021-06-13] MEDS: OXYBUTYNIN CHLORIDE XL 5 MG TABCR PO SCH (08:10)
[2021-06-13] MEDS: FEXOFENADINE 60 MG TAB PO PRN (08:10)
[2021-06-13] MEDS: FLUTICASONE PROPIONATE NA SPR 16 GM BTL SCH (08:11)
[2021-06-13] MEDS: POLYETHYLENE (MIRALAX) 17 GM PACK PO SCH (08:12)
[2021-06-13] MEDS: DICLOFENAC SOD 1% GEL 100 GM TUBE EXT SCH ×2 (08:15→20:15)
[2021-06-13 08:36] LABS: INR 1.7 (0.9-1.1); Prothrombin Time 16.3 Seconds (9.0-12.0)
[2021-06-13] MEDS: HYDROmorphone INJ 0.5 MG/0.5 ML SYR IV PRN ×4 (09:40→22:22)
[2021-06-13] MEDS: cefTRIAXone SODIUM 2,000 MG in DEXTROSE 5% 50 ML IV SCH (11:26)
--- NOTE | 2021-06-13 12:58 | Ultrasound Report ---
INDICATION: MN ^r/o pad, to apply pressure dressing. Technique: Left lower extremity real-time compression arterial ultrasound with Color Doppler imaging. Comparison: None available at the time of this dictation. Findings: Vascular waveforms were normal without evidence of parvus tardus waveform. Arterial velocit ies were as follows: Common iliac: 211 cm/s Common femoral: 170 cm/s Superficial femoral: 146 cm/s Deep femoral: 49 cm/s Popliteal: 122 cm/s Anterior tibial: 76 cm/s Posterior tibial: 136 cm/s Distal left posterior tibial artery: 38 cm/s Distal anterior tibial artery: 56.3 cm/s Dorsalis pedis: 22 cm/s. Left peroneal artery: 52 cm/s Exam is limited by patient body habitus and calf edema. The left peroneal and superficial femoral art eries are difficult to follow distally due to body habitus. Impression: Unremarkable left lower extremity arterial ultrasound. ACT 112: Negative or not required by law. Electronically signed by: Ted Garcia M.D. 06/13/2021 12:57 PM
[2021-06-13] MEDS: [UNRECOGNIZED DRUG - OTHER] PO SCH (13:53)
[2021-06-13] MEDS: DAPTOmycin 800 MG in SYRINGE 0 ML IV SCH (13:54)
[2021-06-13] MEDS: WARFARIN SOD 10 MG TAB PO SCH (16:49)
--- NOTE | 2021-06-13 17:37 | Hospitalist Progress Note ---
Date of Service June 13, 2021 Assessment & Plan (1) Cellulitis of leg, left: (2) Supratherapeutic INR: Plan: #. Cellulitis of leg, left: Admitted with spreading cellulitis with lower leg wound on the left side Failure of outpatient doxycycline treatment. Was having fever at the time of presentation. CT leg with contrast showed extensive subcutaneous edema and skin thickening within the left lower leg likely representing a cellulitis. No peripheral enhancing fluid collection to suggest an abscess. No evidence of osteomyelitis 06/02 wound culture: Coagulase-negative staph [likely superficial] 06/11 -asked wound care nurse to evaluate the patient again, and evaluate the posterior plaque. Able to wash off most of the plaque. Also asked for culture. Does not need surgical evaluation. 06/11 deep wound culture: Preliminary report positive for E. coli and gram- negative bacilli. 06/13 LLE arterial Doppler: Unremarkable left lower extremity arterial ultrasound. ID consulted: Daptomycin for total of 14 days, follow-up with CPK monitoring. D/W with ID 06/13 over [place] text: Plan to continue with daptomycin for total of 21 days and Rocephin added through the end of daptomycin. Patient's left lower extremity cellulitis is improving and she had been afebrile with normal WBC. But it does not look like she will have good resolution of her LLE cellulitis at the end of 14 days of antibiotic therapy and hence rediscussed with ID. Erythema improving, swelling and pain still persistent. Can use as needed Lasix and as needed Roxicodone. Can use compression dressing to assist with wound healing and swelling. Patient is to follow-up with an outpatient infectious disease upon discharge. #. Supratherapeutic INR: Coumadin has been on hold since 05/28 due to supratherapeutic INR INR on 06/06 - 5.8 (down from 7.3 the previous day) At home on Coumadin on 5 mg and 10 mg dose. Restarted at 3 mg daily (on 06/07) INR 1.5, start heparin subq INR 1.2 (06/09) - increased warfarin dose 06/11 -INR still subtherapeutic, increased warfarin dose again - now to 10 mg Continue to closely monitor INR She will also need close INR monitoring as outpatient #. Iron deficiency anemia: per pt she has hx of iron def anemia - baseline hgb 11-14 - hgb stable 07-15 - c/w iron supplement - FOBT negative - pt already on PPI #. Factor V deficiency: #. History of gastric bypass: No acute issue #. Morbid obesity: Morbidly obese with sleep apnea not been using any CPAP and/or oxygen Patient says that she has official sleep study scheduled for July Obtained nocturnal pulse ox, patient needs 2 L of O2 via NC #. Hypothyroidism: Continue supplement Other significant medical conditions including GERD, chronic pain, depression and hypertension remained stable #. Cellulitis of leg, right: Has had cellulitis of the Right leg in April and required to be transferred to [place] on 04/14/2021 Required IR drainage for the fluid collection/abscess of the right leg Right leg is healed at this time Disposition: Awaiting SNF placement. Can be discharged once he gets placement. Possibility is that she might get bed on Thursday or Thursday next week. Admission and Anticipated Discharge Date Admission Date: May 25, 2021 Subjective Patient was sitting up in bed, on room air, NAD. Patient reports left lower extremity pain ongoing. Denies any headache/dizziness/chest pain/other review of symptoms. She is eating and moving bowels at baseline. Patient made aware about the importance of physical therapy for getting her left lower extremity swelling down and pain control. Physical Exam Physical Exam: GENERAL: Alert and oriented x3. NAD, on RA. HEENT: No pallor, no icterus. Pupils equal, round and reactive to light. Oral mucosa moist. NECK: No JVD, no neck masses. HEART: S1 and S2 heard. Regular rate and rhythm. No murmur, no gallop. RESPIRATORY SYSTEM: Normal AP diameter. No accessory muscle use. No wheezing, no crackles. ABDOMEN: Soft, bowel sounds present, nontender, no distention. CENTRAL NERVOUS SYSTEM: Alert and oriented x3. No facial droop. Speech is clear. Obeys simple commands. Moves extremities. EXTREMITIES: No edema, no erythema seen. Right lower extremity had chronic skin changes. Left lower extremity erythematous/tender with improving cellulitis. Approximately 10 cm whitish plaque noted over the wound. No fluctuations noted. Results & Data Results & Data ([facility]) Vital Signs (Past 12 Hours) Vital Signs Temp Pulse Pulse Resp BP Pulse Ox 06/13/21 15:04 80 06/13/21 14:55 37.2 C 78 18 110/65 94 06/13/21 11:57 36.5 C 79 15 101/67 95 06/13/21 07:45 80 06/13/21 07:00 36.6 C 76 18 123/76 92
[2021-06-13] MEDS: ADVANCED PROBIOTIC 1250 MG CAPSULE PO SCH (18:01)
[2021-06-13] MEDS: ZINC SULFATE 220 MG CAPSULE PO SCH (18:01)
[2021-06-13] MEDS: MULTIVITAMIN TAB PO SCH (18:02)
[2021-06-13] MEDS: MAGNESIUM OXIDE 400 MG TAB PO SCH (18:02)
[2021-06-13] MEDS: FOLIC ACID 1 MG TAB PO SCH (20:13)
[2021-06-13] MEDS: ZOLPIDEM TARTRATE 5 MG TAB PO SCH (20:13)
[2021-06-13] MEDS: DOCUSATE SODIUM 100 MG CAP PO SCH (20:13)
[2021-06-14] MEDS: oxyCODONE HCL IR 5 MG TAB (IMMEDIATE RELEASE) PO PRN ×3 (03:51→13:59)
[2021-06-14] MEDS: ACETAMINOPHEN 500 MG TAB PO SCH ×3 (06:34→21:36)
[2021-06-14] MEDS: LEVOTHYROXINE SODIUM 88 MCG TABLET PO SCH (06:35)
[2021-06-14] MEDS: PANTOprazole 40 MG TAB PO SCH (08:09)
[2021-06-14] MEDS: FEXOFENADINE 60 MG TAB PO PRN (08:09)
[2021-06-14] MEDS: DULoxetine HCL 60 MG CAP PO SCH (08:09)
[2021-06-14] MEDS: buPROPion SR 150 MG TABCR PO SCH (08:09)
[2021-06-14] MEDS: DICLOFENAC SOD 1% GEL 100 GM TUBE EXT SCH ×2 (08:10→21:37)
[2021-06-14] MEDS: CALCIUM CARBONATE 1250MG TAB PO SCH ×3 (08:10→21:32)
[2021-06-14] MEDS: FERROUS SULFATE 325 MG TAB PO SCH ×2 (08:10→21:35)
[2021-06-14] MEDS: OXYBUTYNIN CHLORIDE XL 5 MG TABCR PO SCH (08:10)
[2021-06-14] MEDS: POLYETHYLENE (MIRALAX) 17 GM PACK PO SCH (08:11)
[2021-06-14] MEDS: FLUTICASONE PROPIONATE NA SPR 16 GM BTL SCH (08:11)
[2021-06-14 08:41] LABS: INR 2.1 (0.9-1.1); Prothrombin Time 20.1 Seconds (9.0-12.0)
[2021-06-14] MEDS: cefTRIAXone SODIUM 2,000 MG in DEXTROSE 5% 50 ML IV SCH (11:25)
[2021-06-14] MEDS: HYDROmorphone INJ 0.5 MG/0.5 ML SYR IV PRN ×3 (11:28→21:46)
[2021-06-14] MEDS: [UNRECOGNIZED DRUG - OTHER] PO SCH (14:00)
[2021-06-14] MEDS: DAPTOmycin 800 MG in SYRINGE 0 ML IV SCH (14:00)
[2021-06-14] MEDS: CEFEPIME 2,000 MG in SYRINGE 0 ML IV SCH ×2 (17:22→23:53)
[2021-06-14] MEDS: ADVANCED PROBIOTIC 1250 MG CAPSULE PO SCH (17:59)
[2021-06-14] MEDS: WARFARIN SOD 10 MG TAB PO SCH (18:00)
[2021-06-14] MEDS: ZINC SULFATE 220 MG CAPSULE PO SCH (18:01)
[2021-06-14] MEDS: MULTIVITAMIN TAB PO SCH (18:01)
[2021-06-14] MEDS: MAGNESIUM OXIDE 400 MG TAB PO SCH (18:01)
--- NOTE | 2021-06-14 18:11 | Hospitalist Progress Note ---
Date of Service June 14, 2021 Assessment & Plan (1) Cellulitis of leg, left: (2) Supratherapeutic INR: Plan: #. Cellulitis of leg, left: Admitted with spreading cellulitis with lower leg wound on the left side Failure of outpatient doxycycline treatment. Was having fever at the time of presentation. CT leg with contrast showed extensive subcutaneous edema and skin thickening within the left lower leg likely representing a cellulitis. No peripheral enhancing fluid collection to suggest an abscess. No evidence of osteomyelitis 06/02 wound culture: Coagulase-negative staph [likely superficial] 06/11 -asked wound care nurse to evaluate the patient again, and evaluate the posterior plaque. Able to wash off most of the plaque. Also asked for culture. Does not need surgical evaluation. 06/11 deep wound culture: Preliminary report positive for E. coli and gram- negative bacilli. 06/13 LLE arterial Doppler: Unremarkable left lower extremity arterial ultrasound. ID consulted: Daptomycin for total of 14 days, follow-up with CPK monitoring. Rediscussed with ID 06/13 over [place] text: Plan to continue with daptomycin for total of 21 days and Rocephin added through the end of daptomycin. Patient's left lower extremity cellulitis is improving and she had been afebrile with normal WBC. 06/14 patient's wound culture showed additional growth of Pseudomonas. Rocephin changed to cefepime. Will rediscuss with ID. Erythema improving, swelling and pain still persistent. Can use as needed Lasix and as needed Roxicodone. Can use compression dressing to assist with wound healing and swelling. Patient is to follow-up with an outpatient infectious disease upon discharge. #. Supratherapeutic INR: Coumadin has been on hold since 05/28 due to supratherapeutic INR INR on 06/06 - 5.8 (down from 7.3 the previous day) At home on Coumadin on 5 mg and 10 mg dose. Restarted at 3 mg daily (on 06/07) INR 1.5, start heparin subq INR 1.2 (06/09) - increased warfarin dose 06/11 -INR still subtherapeutic, increased warfarin dose again - now to 10 mg Continue to closely monitor INR She will also need close INR monitoring as outpatient #. Iron deficiency anemia: per pt she has hx of iron def anemia - baseline hgb 11-14 - hgb stable 07-15 - c/w iron supplement - FOBT negative - pt already on PPI #. Factor V deficiency: #. History of gastric bypass: No acute issue #. Morbid obesity: Morbidly obese with sleep apnea not been using any CPAP and/or oxygen Patient says that she has official sleep study scheduled for July Obtained nocturnal pulse ox, patient needs 2 L of O2 via [place] #. Hypothyroidism: Continue supplement Other significant medical conditions including GERD, chronic pain, depression and hypertension remained stable #. Cellulitis of leg, right: Has had cellulitis of the Right leg in April and required to be transferred to [place] on 04/14/2021 Required IR drainage for the fluid collection/abscess of the right leg Right leg is healed at this time Disposition: Awaiting SNF placement. Can be discharged once he gets placement. Possibility is that she might get bed on Thursday or Thursday next week. Admission and Anticipated Discharge Date Admission Date: May 25, 2021 Subjective Patient was sitting up in chair, on room air, NAD. Patient reports left lower extremity pain ongoing. Denies any headache/dizziness/chest pain/other review of symptoms. She is eating and moving bowels at baseline. Reeducated about the importance of physical therapy. Physical Exam Physical Exam: GENERAL: Alert and oriented x3. NAD, on RA. HEENT: No pallor, no icterus. Pupils equal, round and reactive to light. Oral mucosa moist. NECK: No JVD, no neck masses. HEART: S1 and S2 heard. Regular rate and rhythm. No murmur, no gallop. RESPIRATORY SYSTEM: Normal AP diameter. No accessory muscle use. No wheezing, no crackles. ABDOMEN: Soft, bowel sounds present, nontender, no distention. CENTRAL NERVOUS SYSTEM: Alert and oriented x3. No facial droop. Speech is clear. Obeys simple commands. Moves extremities. EXTREMITIES: No edema, no erythema seen. Right lower extremity had chronic skin changes. Left lower extremity erythematous/tender with improving cellulitis. Clean dressing over the cellulitis. No fluctuations noted. Results & Data Results & Data ([facility]) Vital Signs (Past 12 Hours) Vital Signs Temp Pulse Pulse Pulse Resp BP Pulse Ox 06/14/21 15:48 36.7 C 78 20 119/67 91 06/14/21 15:33 79 06/14/21 08:00 78 06/14/21 07:34 36.5 C 80 21 134/73 97 06/14/21 07:00 36.6 C 76 20 135/67 94
[2021-06-14] MEDS: DOCUSATE SODIUM 100 MG CAP PO SCH (21:33)
[2021-06-14] MEDS: ZOLPIDEM TARTRATE 5 MG TAB PO SCH (21:34)
[2021-06-14] MEDS: FOLIC ACID 1 MG TAB PO SCH (21:35)
[2021-06-15] MEDS: oxyCODONE HCL IR 5 MG TAB (IMMEDIATE RELEASE) PO PRN ×3 (01:19→20:25)
[2021-06-15] MEDS: HYDROmorphone INJ 0.5 MG/0.5 ML SYR IV PRN ×3 (05:27→16:54)
[2021-06-15] MEDS: ACETAMINOPHEN 500 MG TAB PO SCH ×3 (06:10→20:26)
[2021-06-15] MEDS: LEVOTHYROXINE SODIUM 88 MCG TABLET PO SCH (06:12)
[2021-06-15] MEDS: OXYBUTYNIN CHLORIDE XL 5 MG TABCR PO SCH (08:11)
[2021-06-15] MEDS: FERROUS SULFATE 325 MG TAB PO SCH ×2 (08:11→20:26)
[2021-06-15] MEDS: DULoxetine HCL 60 MG CAP PO SCH (08:12)
[2021-06-15] MEDS: buPROPion SR 150 MG TABCR PO SCH (08:12)
[2021-06-15] MEDS: PANTOprazole 40 MG TAB PO SCH (08:12)
[2021-06-15] MEDS: FEXOFENADINE 60 MG TAB PO PRN (08:12)
[2021-06-15] MEDS: DICLOFENAC SOD 1% GEL 100 GM TUBE EXT SCH ×2 (08:13→20:27)
[2021-06-15] MEDS: CALCIUM CARBONATE 1250MG TAB PO SCH ×3 (08:13→20:27)
[2021-06-15] MEDS: POLYETHYLENE (MIRALAX) 17 GM PACK PO SCH (08:13)
[2021-06-15] MEDS: FLUTICASONE PROPIONATE NA SPR 16 GM BTL SCH (08:13)
[2021-06-15] MEDS: CEFEPIME 2,000 MG in SYRINGE 0 ML IV SCH ×3 (08:14→23:42)
[2021-06-15 08:21] LABS: INR 2.5 (0.9-1.1); Prothrombin Time 23.5 Seconds (9.0-12.0)
--- NOTE | 2021-06-15 11:51 | Hospitalist Progress Note ---
Date of Service June 15, 2021 Assessment & Plan (1) Cellulitis of leg, left: (2) Supratherapeutic INR: Plan: #. Cellulitis of leg, left: Admitted with spreading cellulitis with lower leg wound on the left side Failure of outpatient doxycycline treatment. Was having fever at the time of presentation. CT leg with contrast showed extensive subcutaneous edema and skin thickening within the left lower leg likely representing a cellulitis. No peripheral enhancing fluid collection to suggest an abscess. No evidence of osteomyelitis 06/02 wound culture: Coagulase-negative staph [likely superficial] 06/11 -asked wound care nurse to evaluate the patient again, and evaluate the posterior plaque. Able to wash off most of the plaque. Also asked for culture. Does not need surgical evaluation. 06/11 deep wound culture: Preliminary report positive for E. coli and gram- negative bacilli. 06/13 LLE arterial Doppler: Unremarkable left lower extremity arterial ultrasound. 06/14 deep wound culture: E. coli and Pseudomonas. ID consulted: Daptomycin for total of 14 days, follow-up with CPK monitoring. Rediscussed with ID 06/13 over [place] text: Plan to continue with daptomycin for total of 21 days and Rocephin added through the end of daptomycin. Rediscussed with ID again 06/15 after her final wound culture growthstopping daptomycin and continuing with cefepime 06/14. Patient's left lower extremity cellulitis is improving and she had been afebrile with normal WBC. Continue with IV cefepime for total of 14 days. Erythema improving, swelling and pain still persistent. Can use as needed Lasix and as needed Roxicodone. Can use compression dressing to assist with wound healing and swelling. Patient is to follow-up with an outpatient infectious disease upon discharge. #. Supratherapeutic INR: Coumadin has been on hold since 05/28 due to supratherapeutic INR INR on 06/06 - 5.8 (down from 7.3 the previous day) At home on Coumadin on 5 mg rest of the days and 10 mg dose on Thursday and . Restarted at 3 mg daily (on 06/07) INR 1.5, start heparin subq INR 1.2 (06/09) - increased warfarin dose 06/11 -INR still subtherapeutic, increased warfarin dose again - now to 10 mg Continue to closely monitor INR INR within therapeutic range, will transition to home dose of warfarin. She will also need close INR monitoring as outpatient #. Iron deficiency anemia: per pt she has hx of iron def anemia - baseline hgb 11-14 - hgb stable 07-15 - c/w iron supplement - FOBT negative - pt already on PPI #. Factor V deficiency: #. History of gastric bypass: No acute issue #. Morbid obesity: Morbidly obese with sleep apnea not been using any CPAP and/or oxygen Patient says that she has official sleep study scheduled for July Obtained nocturnal pulse ox, patient needs 2 L of O2 via NC #. Hypothyroidism: Continue supplement Other significant medical conditions including GERD, chronic pain, depression and hypertension remained stable #. Cellulitis of leg, right: Has had cellulitis of the Right leg in April and required to be transferred to [place] on 04/14/2021 Required IR drainage for the fluid collection/abscess of the right leg Right leg is healed at this time Disposition: Awaiting SNF placement. Can be discharged once she gets placement. Possibility is that she might get bed on Thursday or Thursday next week. Admission and Anticipated Discharge Date Admission Date: May 25, 2021 Subjective Patient was sitting up in bed, on room air, NAD. Patient reports left lower extremity pain ongoing. Asking for her home dose of oxycodone/acetaminophen. Denies any headache/dizziness/chest pain/other review of symptoms. She is eating and moving bowels at baseline. Reeducated about the importance of physical therapy. Patient updated about final wound culture and the plan of treatment. Expressed understanding and agreeable. Physical Exam Physical Exam: GENERAL: Alert and oriented x3. NAD, on RA. HEENT: No pallor, no icterus. Pupils equal, round and reactive to light. Oral mucosa moist. NECK: No JVD, no neck masses. HEART: S1 and S2 heard. Regular rate and rhythm. No murmur, no gallop. RESPIRATORY SYSTEM: Normal AP diameter. No accessory muscle use. No wheezing, no crackles. ABDOMEN: Soft, bowel sounds present, nontender, no distention. CENTRAL NERVOUS SYSTEM: Alert and oriented x3. No facial droop. Speech is clear. Obeys simple commands. Moves extremities. EXTREMITIES: No edema, no erythema seen. Right lower extremity had chronic skin changes. Left lower extremity erythematous/tender with improving cellulitis. Clean dressing over the cellulitis. No fluctuations noted. Results & Data Results & Data ([facility]) Vital Signs (Past 12 Hours) Vital Signs Temp Pulse Pulse Pulse Resp BP Pulse Ox 06/15/21 07:23 83 06/15/21 07:14 37.0 C 82 18 133/71 94 06/15/21 03:40 36.8 C 82 18 122/71 90
[2021-06-15] MEDS: [UNRECOGNIZED DRUG - OTHER] PO SCH (13:05)
[2021-06-15] MEDS ORDERED: WARFARIN SOD 10 MG TAB PO SCH (16:00)
[2021-06-15] MEDS: MAGNESIUM OXIDE 400 MG TAB PO SCH (17:53)
[2021-06-15] MEDS: ZINC SULFATE 220 MG CAPSULE PO SCH (17:53)
[2021-06-15] MEDS: ADVANCED PROBIOTIC 1250 MG CAPSULE PO SCH (17:53)
[2021-06-15] MEDS: MULTIVITAMIN TAB PO SCH (17:53)
[2021-06-15] MEDS: FOLIC ACID 1 MG TAB PO SCH (20:25)
[2021-06-15] MEDS: DOCUSATE SODIUM 100 MG CAP PO SCH (20:26)
[2021-06-15] MEDS: ZOLPIDEM TARTRATE 5 MG TAB PO SCH (21:26)
[2021-06-16] MEDS: ACETAMINOPHEN 500 MG TAB PO SCH ×3 (06:15→21:13)
[2021-06-16] MEDS: LEVOTHYROXINE SODIUM 88 MCG TABLET PO SCH (06:16)
[2021-06-16] MEDS: oxyCODONE HCL IR 5 MG TAB (IMMEDIATE RELEASE) PO PRN ×3 (06:16→21:12)
[2021-06-16] MEDS: POLYETHYLENE (MIRALAX) 17 GM PACK PO SCH ×2 (07:46→07:52)
[2021-06-16] MEDS: CALCIUM CARBONATE 1250MG TAB PO SCH ×3 (07:46→21:12)
[2021-06-16] MEDS: FERROUS SULFATE 325 MG TAB PO SCH ×2 (07:46→21:13)
[2021-06-16] MEDS: FEXOFENADINE 60 MG TAB PO PRN (07:46)
[2021-06-16] MEDS: buPROPion SR 150 MG TABCR PO SCH (07:47)
[2021-06-16] MEDS: DULoxetine HCL 60 MG CAP PO SCH (07:47)
[2021-06-16] MEDS: OXYBUTYNIN CHLORIDE XL 5 MG TABCR PO SCH (07:47)
[2021-06-16] MEDS: PANTOprazole 40 MG TAB PO SCH (07:47)
[2021-06-16] MEDS: FLUTICASONE PROPIONATE NA SPR 16 GM BTL SCH (07:49)
[2021-06-16] MEDS: HYDROmorphone INJ 0.5 MG/0.5 ML SYR IV PRN ×3 (07:53→19:09)
[2021-06-16] MEDS: DICLOFENAC SOD 1% GEL 100 GM TUBE EXT SCH ×2 (07:57→21:13)
[2021-06-16] MEDS: CEFEPIME 2,000 MG in SYRINGE 0 ML IV SCH ×2 (09:08→15:51)
[2021-06-16 09:13] LABS: INR 3.3 (0.9-1.1); Prothrombin Time 30.3 Seconds (9.0-12.0)
--- NOTE | 2021-06-16 10:14 | Hospitalist Progress Note ---
Date of Service June 16, 2021 Assessment & Plan (1) Cellulitis of leg, left: (2) Supratherapeutic INR: Plan: #. Cellulitis of leg, left: Admitted with spreading cellulitis with lower leg wound on the left side Failure of outpatient doxycycline treatment. Was having fever at the time of presentation. CT leg with contrast showed extensive subcutaneous edema and skin thickening within the left lower leg likely representing a cellulitis. No peripheral enhancing fluid collection to suggest an abscess. No evidence of osteomyelitis 06/02 wound culture: Coagulase-negative staph [likely superficial] 06/11 -asked wound care nurse to evaluate the patient again, and evaluate the posterior plaque. Able to wash off most of the plaque. Also asked for culture. Does not need surgical evaluation. 06/11 deep wound culture: Preliminary report positive for E. coli and gram- negative bacilli. 06/13 LLE arterial Doppler: Unremarkable left lower extremity arterial ultrasound. 06/14 deep wound culture: E. coli and Pseudomonas. ID consulted: Daptomycin for total of 14 days, follow-up with CPK monitoring. Rediscussed with ID 06/13 over [place] text: Plan to continue with daptomycin for total of 21 days and Rocephin added through the end of daptomycin. Rediscussed with ID again 06/15 after her final wound culture growthstopping daptomycin and continuing with cefepime 06/14. Patient's left lower extremity cellulitis is improving and she had been afebrile with normal WBC. Continue with IV cefepime for total of 14 days. Erythema improving, swelling and pain still persistent. Can use as needed Lasix and as needed Roxicodone. Can use compression dressing to assist with wound healing and swelling. Patient is to follow-up with an outpatient infectious disease upon discharge. #. Supratherapeutic INR: Coumadin has been on hold since 05/28 due to supratherapeutic INR INR on 06/06 - 5.8 (down from 7.3 the previous day) At home on 5 mgMWF and 10 mg SuTuThSa. Restarted at 3 mg daily (on 06/07) INR 1.5, start heparin subq INR 1.2 (06/09) - increased warfarin dose 06/11 -INR still subtherapeutic, increased warfarin dose again - now to 10 mg Continue to closely monitor INR INR 2.3 today, hold today's evening warfarin dose. She will also need close INR monitoring as outpatient #. Iron deficiency anemia: per pt she has hx of iron def anemia - baseline hgb 11-14 - hgb stable 07-15 - c/w iron supplement - FOBT negative - pt already on PPI #. Factor V deficiency: #. History of gastric bypass: No acute issue #. Morbid obesity: Morbidly obese with sleep apnea not been using any CPAP and/or oxygen Patient says that she has official sleep study scheduled for July Obtained nocturnal pulse ox, patient needs 2 L of O2 via [place] #. Hypothyroidism: Continue supplement Other significant medical conditions including GERD, chronic pain, depression and hypertension remained stable #. Cellulitis of leg, right: Has had cellulitis of the Right leg in April and required to be transferred to [place] on 04/14/2021 Required IR drainage for the fluid collection/abscess of the right leg Right leg is healed at this time Disposition: Awaiting SNF placement. Can be discharged once she gets placement. Possibility is that she might get bed on Thursday or Thursday next week. Admission and Anticipated Discharge Date Admission Date: May 25, 2021 Subjective Patient was semiupright in bed, on room air, NAD. Patient reports left lower extremity pain slightly better today. Denies any headache/dizziness/chest pain/other review of symptoms. She is eating and moving bowels at baseline. Wound started to show significant improvement. Physical Exam Physical Exam: GENERAL: Alert and oriented x3. NAD, on RA. HEENT: No pallor, no icterus. Pupils equal, round and reactive to light. Oral mucosa moist. NECK: No JVD, no neck masses. HEART: S1 and S2 heard. Regular rate and rhythm. No murmur, no gallop. RESPIRATORY SYSTEM: Normal AP diameter. No accessory muscle use. No wheezing, no crackles. ABDOMEN: Soft, bowel sounds present, nontender, no distention. CENTRAL NERVOUS SYSTEM: Alert and oriented x3. No facial droop. Speech is clear. Obeys simple commands. Moves extremities. EXTREMITIES: No edema, no erythema seen. Right lower extremity had chronic skin changes. Left lower extremity erythematous/tender - significant improvement. Clean dressing over the cellulitis. No fluctuations noted. Results & Data Results & Data ([facility]) Vital Signs (Past 12 Hours) Vital Signs Temp Pulse Pulse Pulse Resp BP Pulse Ox 06/16/21 07:36 36.8 C 90 20 121/68 91 06/16/21 07:00 91 H 06/16/21 03:39 36.9 C 86 18 137/75 91 06/16/21 00:00 89 06/15/21 23:07 37 C 88 16 129/65 90
[2021-06-16] MEDS: [UNRECOGNIZED DRUG - OTHER] PO SCH (14:21)
[2021-06-16] MEDS: MAGNESIUM OXIDE 400 MG TAB PO SCH (17:11)
[2021-06-16] MEDS: ADVANCED PROBIOTIC 1250 MG CAPSULE PO SCH (17:11)
[2021-06-16] MEDS: MULTIVITAMIN TAB PO SCH (17:11)
[2021-06-16] MEDS: ZINC SULFATE 220 MG CAPSULE PO SCH (17:11)
[2021-06-16] MEDS: ZOLPIDEM TARTRATE 5 MG TAB PO SCH (21:13)
[2021-06-16] MEDS: FOLIC ACID 1 MG TAB PO SCH (21:13)
[2021-06-16] MEDS: DOCUSATE SODIUM 100 MG CAP PO SCH (21:13)
[2021-06-17] MEDS: CEFEPIME 2,000 MG in SYRINGE 0 ML IV SCH ×3 (01:12→16:10)
[2021-06-17] MEDS: HYDROmorphone INJ 0.5 MG/0.5 ML SYR IV PRN ×3 (03:27→16:34)
[2021-06-17] MEDS: ACETAMINOPHEN 500 MG TAB PO SCH ×2 (07:17→13:32)
[2021-06-17] MEDS: oxyCODONE HCL IR 5 MG TAB (IMMEDIATE RELEASE) PO PRN (07:17)
[2021-06-17] MEDS: LEVOTHYROXINE SODIUM 88 MCG TABLET PO SCH (07:17)
[2021-06-17] MEDS: DICLOFENAC SOD 1% GEL 100 GM TUBE EXT SCH (07:53)
[2021-06-17] MEDS: POLYETHYLENE (MIRALAX) 17 GM PACK PO SCH (07:54)
[2021-06-17] MEDS: buPROPion SR 150 MG TABCR PO SCH (08:02)
[2021-06-17] MEDS: FLUTICASONE PROPIONATE NA SPR 16 GM BTL SCH (08:03)
[2021-06-17] MEDS: CALCIUM CARBONATE 1250MG TAB PO SCH ×2 (08:03→13:33)
[2021-06-17] MEDS: FERROUS SULFATE 325 MG TAB PO SCH (08:03)
[2021-06-17] MEDS: DULoxetine HCL 60 MG CAP PO SCH (08:03)
[2021-06-17] MEDS: PANTOprazole 40 MG TAB PO SCH (08:04)
[2021-06-17] MEDS: OXYBUTYNIN CHLORIDE XL 5 MG TABCR PO SCH (08:04)
[2021-06-17 10:08] LABS: Prothrombin Time 28.2 Seconds (9.0-12.0)
[2021-06-17] MEDS: [UNRECOGNIZED DRUG - OTHER] PO SCH (13:32)
[2021-06-17] MEDS ORDERED: WARFARIN SOD 5 MG TAB PO SCH (16:00)
--- NOTE | 2021-06-17 19:43 | Discharge Summary ---
Date of Service June 17, 2021 Admission HPI Per Admitting Provider DATE OF ADMISSION: 05/25/2021. CHIEF COMPLAINT: Lower extremity cellulitis. HISTORY OF PRESENT ILLNESS: A 51-year-old female with past medical history significant for heterozygous MTHFR mutation, hypothyroidism, hyperparathyroidism secondary to vitamin D deficiency, allergic rhinitis, obstructive sleep apnea, nocturnal hypoxia, hypertension, osteoarthritis of knee, chronic bilateral low back pain with bilateral sciatica, chronic pain syndrome, depression, status post partial gastrectomy, history of thrombophlebitis, history of DVT, chronic insomnia, history of kidney stones. The patient lives at home with her boyfriend. Presents with lower extremity cellulitis. The patient was here in April with right lower extremity cellulitis and abscess, and at that time because of high surgical risk, she was transferred to [facility] on 04/14/2021. She is status post IR drainage of the abscess and cultures growing Staphylococcus schleiferi, was treated with clindamycin and that has healed well. Now comes because of cellulitis of her left lower extremity. Since last Thursday, she noticed redness in the leg and having fevers. Was taking doxycycline as prescribed by the PCP, but it is not getting better, so she came here, and here she is spiking temperature of 38.2, blood pressure on the lower side. White count is 15. COVID is negative. The patient says she had COVID vaccine. Currently complaining of pain in the lower extremity and also shooting sciatic pain in the right lower extremity. She has a mild headache. No blurred visions, no earache, no runny nose, no sore throat, no cough. She was nauseous earlier, but okay now. No chest pain, no shortness of breath, no abdominal pain, no blood in the stools. Normal bladder movements. Ambulates without any support. ALLERGIES: LATEX, ADHESIVES, NYLON STITCHES. PAST MEDICAL HISTORY: As mentioned above. PAST SURGICAL HISTORY: Carpal tunnel surgery, colonoscopy, dilatation and curettage, EGDs, IR aspiration of the abscess of the right lower extremity, laparoscopic procedure of the liver, sleeve gastrectomy laparoscopy, jaw surgery for fitting of partial dentures. MEDICATIONS: The patient is on Wellbutrin 150 mg 2 tablets in the morning and 1 tablet in the afternoon, calcium carbonate 600 mg p.o. t.i.d., cyclobenzaprine 5 mg p.o. at bedtime p.r.n., doxycycline 100 mg p.o. daily, duloxetine 60 mg p.o. a.m., Ayde-D 1 tablet p.o. q.12 hours p.r.n., Flonase 50 two sprays intranasally daily p.r.n., folic acid 5 mg p.o. at bedtime, Lasix 20 mg p.o. daily p.r.n., Vitron-C 1 tablet p.o. b.i.d., levothyroxine 88 mcg p.o. daily, omeprazole 40 mg p.o. a.m., Ditropan XL 5 mg p.o. daily, oxycodone/acetaminophen 10/325 mg 1 tablet every 6 hours p.r.n. for pain, potassium gluconate 99 mg p.o. daily, warfarin as directed, zolpidem 5 mg p.o. at bedtime p.r.n. FAMILY HISTORY: Significant for mother has thyroid disorder, gastrointestinal disorder, diabetes; father has heart disorder; maternal grandmother has diabetes; paternal grandmother has diabetes; paternal grandfather has VA; brother has quadruple bypass surgery, factor V Leiden deficiency and hypertension; sister has blood clots. SOCIAL HISTORY: Lives with her boyfriend. Former smoker, quit in 2000. Smoked half a pack for 2 years. No alcohol use. No drug use. REVIEW OF SYSTEMS: As per HPI. Rest of the review of systems is negative. Admission Exam Per Admitting Provider GENERAL: The patient is morbidly obese. VITAL SIGNS: Temperature 38.2, pulse 97, respiratory rate 19, blood pressure 98/43, oxygen 93% on 2 liters. HEENT: Pupils equal, round and reactive to light. Oral mucosa dry. NECK: No JVD. No neck masses. CARDIOVASCULAR: S1 and S2 heard. Regular rate and rhythm. No murmur, no gallop. RESPIRATORY SYSTEM: Normal AP diameter. No accessory muscle use. No wheezing, no crackles. ABDOMEN: Soft, bowel sounds present, nontender, no distention. CENTRAL NERVOUS SYSTEM: Alert and oriented. Speech is clear. No facial droop. Moves extremities. EXTREMITIES: Bilateral lower extremity gross edema present and the left lower extremity is erythematous in shins. Principal Diagnosis Left lower extremity cellulitis Supratherapeutic INR. Discharge Exam GENERAL: Alert and oriented x3. NAD, on RA. HEENT: No pallor, no icterus. Pupils equal, round and reactive to light. Oral mucosa moist. NECK: No JVD, no neck masses. HEART: S1 and S2 heard. Regular rate and rhythm. No murmur, no gallop. RESPIRATORY SYSTEM: Normal AP diameter. No accessory muscle use. No wheezing, no crackles. ABDOMEN: Soft, bowel sounds present, nontender, no distention. CENTRAL NERVOUS SYSTEM: Alert and oriented x3. No facial droop. Speech is clear. Obeys simple commands. Moves extremities. EXTREMITIES: LLE 2+ edema and RLE 1+ edema, no erythema seen. Right lower extremity had chronic skin changes. Left lower extremity erythematous/tender - significant improvement on a daily basis. Clean dressing over the cellulitis. No fluctuations noted. Discharge Data Allergies Allergy/AdvReac Type Severity Reaction Status Date / Time latex Allergy Intermediate SKIN Verified 05/25/21 19:45 IRRITATION nylon Allergy Mild erythema/pus Verified 06/02/21 10:12 nylon sutures adhesive AdvReac Intermediate skin Verified 05/25/21 19:45 tearing Consultations 05/25/21 21:06 ED Decision to Admit Stat 06/05/21 06:52 Consult Infectious Diseases Routine Ordered Studies 06/02/21 10:01 CT tib/fib LT w con Routine 06/04/21 13:00 US venous doppler LE BI Routine 06/09/21 16:01 CT tib/fib LT w con Routine 06/13/21 09:01 US arterial duplex LE LT Routine Hospital Course (1) Cellulitis of leg, left: (2) Supratherapeutic INR: #. Cellulitis of leg, left: Admitted with spreading cellulitis with lower leg wound on the left side Failure of outpatient doxycycline treatment. Was having fever at the time of presentation. CT leg with contrast showed extensive subcutaneous edema and skin thickening within the left lower leg likely representing a cellulitis. No peripheral enhancing fluid collection to suggest an abscess. No evidence of osteomyelitis 06/02 wound culture: Coagulase-negative staph [likely superficial] 06/11 -asked wound care nurse to evaluate the patient again, and evaluate the posterior plaque. Able to wash off most of the plaque. Also asked for culture. Does not need surgical evaluation. 06/11 deep wound culture: Preliminary report positive for E. coli and gram- negative bacilli. 06/13 LLE arterial Doppler: Unremarkable left lower extremity arterial ultrasound. 06/14 deep wound culture: E. coli and Pseudomonas. ID consulted: Daptomycin for total of 14 days, follow-up with CPK monitoring. Rediscussed with ID 06/13 over [place] text: Plan to continue with daptomycin for total of 21 days and Rocephin added through the end of daptomycin. Rediscussed with ID again 06/15 after her final wound culture growthstopping daptomycin and continuing with cefepime 06/14. Patient's left lower extremity cellulitis is improving and she had been afebrile with normal WBC. Continue with IV cefepime for total of 14 days. Patient aware. Can use compression dressing to assist with wound healing and swelling. Patient is to follow-up with an outpatient infectious disease upon discharge within 2 weeks time. Patient aware. #. Supratherapeutic INR: Coumadin has been on hold since 05/28 due to supratherapeutic INR INR on 06/06 - 5.8 (down from 7.3 the previous day) At home on 5 mgMWF and 10 mg SuTuThSa. Restarted at 3 mg daily (on 06/07) INR 1.5, start heparin subq INR 1.2 (06/09) - increased warfarin dose 06/11 -INR still subtherapeutic, increased warfarin dose again - now to 10 mg Continue to closely monitor INR INR 2.3 today, hold today's evening warfarin dose. She will also need close INR monitoring as outpatient. Patient aware. #. Iron deficiency anemia: per pt she has hx of iron def anemia - baseline hgb 11-14 - hgb stable - - c/w iron supplement - FOBT negative - pt already on PPI #. Factor V deficiency: #. History of gastric bypass: No acute issue #. Morbid obesity: Morbidly obese with sleep apnea not been using any CPAP and/or oxygen Patient says that she has official sleep study scheduled for July Obtained nocturnal pulse ox, patient needs 2 L of O2 via NC #. Hypothyroidism: Continue supplement Other significant medical conditions including GERD, chronic pain, depression and hypertension remained stable #. Cellulitis of leg, right: Has had cellulitis of the Right leg in April and required to be transferred to [facility] on 04/14/2021 Required IR drainage for the fluid collection/abscess of the right leg Right leg is healed at this time Patient discharged to SNF with following instruction time discharge: Please continue to take your antibiotic until 14-day course is completed. Take your medications as prescribed. Get INR done in 3 days and follow-up with Coumadin clinic in 3 days as discussed. Get CBC and BMP done at 1 week and after completion of IV antibiotic. Follow-up with your primary care physician within a week time. Follow-up with infectious disease doctor in 2 weeks. Total Time Total Time Spent Total Time Spent (In Minutes): 50 Discharge Plan Discharge Items Patient Disposition: Transfer Intermediate Fac Reason For Visit: CELLULITIS Discharge Diagnosis: Left leg cellulitis Supratherapeutic INR Activity: Resume your previous activity Non-emergency contact: Primary Care Provider Call non-emergency contact if: you have any medication questions, your symptoms worsen, your pain is not controlled and your temperature is above 101 Follow-up/Referrals: [facility] [Other] - 06/24/21 10:[address] [facility] Infectious Disease [Other] (Date & Time 07/23/2021 11:00 AM Provider Bob Levy, Department Infectious Disease [address] [place] [address] Krzysztof Pickering MD [Primary Care Provider] - ( ) Diet: Heart Healthy Addtl Attending Provider Instructions: Please continue to take your antibiotic until 14-day course is completed. Take your medications as prescribed. Get INR done in 3 days and follow-up with Coumadin clinic in 3 days as discussed. Get CBC and BMP done at 1 week and after completion of IV antibiotic. Follow-up with your primary care physician within a week time. Follow-up with infectious disease doctor in 2 weeks. Pending Studies at Discharge: No Stand-Alone Forms: My [facility] Skilled Items Patient informed of condition?: Yes DNR: No Discharge Level of Care: Skilled Communicable Disease: No Discharge Prognosis: Improving Lines: US Guided Peripheral IV Urinary Catheter: No Medications and DC Order Prescriptions: New acetaminophen [Tylenol Extra Strength] 500 mg Tablet 1,000 mg PO Q8 14 Days Qty: 84 RF: 0 cefepime 2 gram recon soln 2 g IV Q8H 10 Days Qty: 30 RF: 0 Continued calcium carbonate 600 mg calcium (1,500 mg) tablet 600 mg PO TID RF: 0 warfarin 10 mg tablet See Rx Instructions .ROUTE .COMPLEX RF: 0 cyclobenzaprine 5 mg tablet 5 mg PO HS PRN (Reason: MUSCLE SPASMS) RF: 0 fluticasone propionate 50 mcg/actuation spray,suspension 2 sprays intranasal DAILY RF: 0 furosemide 20 mg tablet 20 mg PO QAM PRN (Reason: Fluid Retention or weight gain) RF: 0 levothyroxine 88 mcg tablet 88 mcg PO DAILYBB RF: 0 omeprazole 20 mg tablet,delayed release (DR/EC) 40 mg PO QAM RF: 0 potassium gluconate 595 mg (99 mg) tablet 595 mg PO HS PRN (Reason: .) RF: 0 Vitron-C 65 mg iron- 125 mg tablet,delayed release (DR/EC) 1 tab PO BID RF: 0 zolpidem [Ambien] 5 mg tablet 5 mg PO HS RF: 0 folic acid 1 mg Tablet 5 mg PO HS RF: 0 fexofenadine-pseudoephedrine [Ayde-D 12 Hour] 60-120 mg Tablet Extended Release 12 Hr 1 tab PO Q12H PRN (Reason: Allergy Symptoms) RF: 0 duloxetine 60 mg Capsule,Delayed Release(Dr/Ec) 60 mg PO QAM RF: 0 oxybutynin chloride [Ditropan XL] 5 mg tablet extended release 24hr 5 mg PO DAILY RF: 0 bupropion HCl [Wellbutrin SR] 150 mg tablet sustained-release 12 hr See Rx Instructions .ROUTE .COMPLEX RF: 0 oxycodone-acetaminophen 10-325 mg tablet 1 tab PO Q6H PRN (Reason: Severe Pain (Scale Score 7-10)) RF: 0 Discontinued doxycycline hyclate 100 mg capsule 100 mg PO DAILY RF: 0 Discharge Orders: Discharge Order (Routine); Ordered 06/17/21 Ordered By: Alison Mcwilliams Admission Data Admit Date/Time: 05/25/21 22:10 Attending Provider: Alison Mcwilliams Admit Provider: Adam Giron Primary Care Provider: Krzysztof Pickering Other Providers: Adam Giron ; Maci Meier ; Shyam Haile ; Chantel Brower ; Adrian Hicks I. ; Collins Sheriff II ; Theresa Steen ; Fazal Mcknight ; [place] Other Interventions: Discharge Summary Assessment (RN) Last Done: 06/17/21 17:08
== END 2021-06-17 17:33 | DRG 603 ==
LOC: ED 18:19 → 2W 22:10 → SUATTDRO 22:10 → 2W 23:32

== ENCOUNTER 2025-02-20 13:03 | Inpatient (IN) ==
[2025-02-20] MEDS ORDERED: VANCOMYCIN CONSULT ACTIVE PRN (13:31)
[2025-02-20 13:51] LABS: iSTAT Creatinine 0.8 mg/dl (0.6-1.3); iSTAT Hemoglobin 13.3 g/dl (12.0-16.0); iSTAT Ionized Calcium 1.09 mmol/l (1.12-1.32); iSTAT Potassium 3.9 mmol/L (3.3-5.0)
[2025-02-20] MEDS: ACETAMINOPHEN 1,000 MG/100 ML VIAL IV STA (13:57)
[2025-02-20 14:00] LABS: Basophils # (auto) 0.03 K/uL (0.00-0.20); Basophils % (auto) 0.2 %; Hematocrit (blood only) 39.2 % (37.0-47.0); Immature Granulocytes # (auto) 0.06 K/uL (0.01-0.20); Immature Granulocytes % (auto) 0.4 %; Lymphocytes # (auto) 0.65 K/uL (1.20-3.40); Lymphocytes % (auto) 4.5 %; Mean Corpuscular Hemoglobin 30.4 pg (25.0-34.0); Mean Corpuscular Hgb Conc 33.2 g/dL (32.0-36.0); Mean Corpuscular Volume 91.6 fL (80.0-100.0); Mean Platelet Volume 10.1 fL (9.4-12.4); Monocytes # (auto) 1.16 K/uL (0.11-0.59); Monocytes % (auto) 8.1 %; Neutrophils # (auto) 12.49 K/uL (1.40-6.50); Neutrophils % (auto) 86.8 %; Platelet Count 157 K/uL (130-400); RDW Coefficient of Variation 13.7 % (11.5-14.5); RDW Standard Deviation 46.3 fL (36.4-46.3); Red Blood Count 4.28 M/uL (4.20-5.40); White Blood Count 14.39 K/ul (4.8-10.8)
--- NOTE | 2025-02-20 14:18 | XRay Report ---
XR chest 1V portable CLINICAL HISTORY: Fever, sob COMPARISON STUDY: 04/09/2021 FINDINGS: Stable cardiomegaly with increased pulmonary vascular congestion. There is increased pulmon reyes interstitial prominence. No lobar consolidation or pleural effusion. No pneumothorax. IMPRESSION: 1. CHF. 2. Pulmonary interstitial prominence could represent pulmonary edema or interstitial pneumonia. ACT 112: Negative or not required by law. Electronically signed by: Khalif Arzate M.D. 02/20/2025 2:17 PM
[2025-02-20 14:20] LABS: INR 2.3 (0.9-1.1); Prothrombin Time 23.6 Seconds (9.0-12.0)
[2025-02-20 14:21] LABS: Albumin Globulin Ratio 1.1 (0.9-2); Albumin Level 3.5 gm/dl (3.4-5.0); BUN Creatinine Ratio 16.7 (10-20); Bilirubin,Total 0.7 mg/dl (0.2-1.0); Calcium 8.5 mg/dl (8.6-10.3); Creatinine Clr Calc Pharmacy 162.2 ml/min; Globulin 3.1 gm/dl (2.5-4.0); Potassium 3.9 mmol/L (3.5-5.1); Total Protein 6.6 gm/dl (6.0-8.3)
[2025-02-20 14:27] LABS: Troponin I High Sensitivity 23.6 pg/ml (0-14)
[2025-02-20] MEDS: VANCOMYCIN HCL 2,750 MG in SODIUM CHLORIDE 0.9% 500 ML IV ONE (14:39)
--- NOTE | 2025-02-20 14:59 | Emergency Department Note ---
Impression & Plan Bilateral cellulitis of lower leg, Sepsis, Hypoxia ED Provider Note Provider: Domenico Florence MD CHIEF COMPLAINT: Fever, leg pain HISTORY OF PRESENT ILLNESS: Patient is a 55-year-old female history of cellulitis, sepsis, obesity, factor V on warfarin, gastric bypass presenting here today via ambulance from home. Yesterday started with increasing pain and redness of the right greater than left lower legs. Did not eat or drink and did not take her meds yesterday. No falls reported. Somewhat hypoxic on room air and reports a little bit of shortness of breath. No abdominal pain reported or chest pain. Patient complains primarily of pain in her lower legs. states the patient has had cellulitis here before and this seems similar. No medications today. PAST MEDICAL HISTORY: As noted above MEDICATIONS: Reviewed home medications but did not take them yesterday or today SOCIAL HISTORY: PHYSICAL EXAM: GENERAL: alert and oriented on the stretcher but occasionally moaning Head: normocephalic and atraumatic EYES: No injection, discharge or icterus. EOMI. NECK: Trachea midline. ENT: Mucous membranes pink and moist. LUNGS: Airway patent. No retractions. Breath sounds distant but present bilaterally without significant wheezing HEART: Regular rate and rhythm. No chest wall tenderness ABDOMEN: Soft generally obese without guarding or significant distention SKIN: Acyanotic, warm, dry, without rashes EXTREMITIES: W some chronic stasis changes with right greater than left significant erythema below the knees bilaterally without crepitus or large wound appreciable. NEUROLOGICAL: No focal deficits. No aphasia. No facial droop or slurred speech. EK bpm normal sinus rhythm. No PVC or PAC. No acute ST segment elevation or depression with a QTc of 405. CONTINUOUS CARDIAC MONITORING: was ordered and showed a heart rate of 70s to 90s bpm in normal sinus rhythm Patient's laboratory studies and imaging reviewed. Differential includes Viral syndrome, otitis, pharyngitis, pneumonia, influenza, meningitis, urinary tract infection, sepsis, bacteremia, DVT, PE as well as other pathologies. IMPRESSION/MEDICAL DECISION MAKING: Febrile upon arrival. Legs do appear cellulitic right greater than left. Anticoagulant warfarin and low suspicion for PE or DVT with this. Still therapeutic INR 2.3. Given some Tylenol for fever and discomfort. Chest x-ray question some fluid overload and she is morbidly obese and does certainly have some swelling of the legs. Not hypotensive. Did not take meds yesterday or today. Covered broadly with Zosyn and vancomycin. Will be careful with narcotics as she does seem somewhat fatigued and with hypoxia. Blood work here without anemia. Mild leukocytosis of 14. No significant lecture light on or signs of renal dysfunction. Respiratory viral panel returns negative. Procalcitonin mildly elevated 0.49. Lactate not elevated. Again not hypotensive. Will avoid IV fluid given her x-ray questioning CHF and generalized lower extremity edema/venous stasis and will actually trial an IV dose of Lasix (she normally takes at home). Is empirically on antibiotics given concern for cellulitis which would cover any occult pneumonia here. Will bring in for further care. Patient agreeable. Hospitalist team contacted. DIAGNOSIS: Lower extremity cellulitis, sepsis, hypoxia DISPOSITION: Hospitalist will evaluate Patient was agreeable with this plan. Past Med/Surg History Problem List Hypoxia (Acute) Sepsis (Acute) Bilateral cellulitis of lower leg (Acute) Encounter for pre-operative examination UTI (urinary tract infection) Small bowel obstruction Partial small bowel obstruction (Acute) Venous stasis ulcer (Acute) Supratherapeutic INR Iron deficiency anemia Leukocytosis (Acute) Pneumonia (Acute) Cellulitis of leg, right (Acute) Hypothyroidism MDD (major depressive disorder) Hypokalemia Acute encephalopathy SIRS (systemic inflammatory response syndrome) (Acute) Fever (Acute) GERD (gastroesophageal reflux disease) Morbid obesity DVT (deep venous thrombosis) total 3, last DVT ~2014 Factor V deficiency reason for coumadin Narcotic dependence History of gastric bypass ~2007 Medical History Osteoarthritis Hypothyroidism Anemia Depression History of kidney stones no sx. Sleep apnea no device currently Anticoagulated on warfarin Narcotic dependence Chronic back pain GERD (gastroesophageal reflux disease) Factor V deficiency reason for coumadin DVT (deep venous thrombosis) total 3, last DVT ~2014 Morbid obesity Thrombophlebitis of right saphenous vein hx ~2010 Surgical History History of esophagogastroduodenoscopy (EGD) Nausea and vomiting after administration of anesthetic agent History of dilatation and curettage History of carpal tunnel release rt/left History of colonoscopy History of tooth extraction History of gastric bypass ~2007 Family History Other No family history of adverse response to anesthesia Social History Smoking Status: Never smoker Tobacco Type: Cigarettes Second Hand Exposure: No; Do You Dip or Chew Tobacco: No; Hx Alcohol Use: Yes Hx Substance Use: Yes Last Used Substance Other:: decades ago Preferred Language: Ecuadorean Communication Ability: Effective Hearing Ability: Normal Shoe Patternmaker Required: No Beliefs That Will Affect Care: None marital status: Single Current Living Situation: Significant Other Current Living Situation Comment: WITH BOYFRIEND current occupational status: disabled Feels Safe at Home: Yes Safety Concerns: Feels Safe At This Time Diet: regular caffeine: Yes (coffee) during the past year weight has: remained stable Physical Activity Frequency: Does not Exercise Do you think of yourself as: straight/heterosexual Gender Identity: Female Assistive Devices: Glasses Allergies Allergies Allergy/AdvReac Type Severity Reaction Status Date / Time latex Allergy Intermediate SKIN Verified 12/11/23 08:20 IRRITATION nylon Allergy Mild erythema/pus Verified 12/11/23 08:20 nylon sutures adhesive AdvReac Intermediate skin Verified 12/11/23 08:20 tearing bacitracin AdvReac Mild SKIN Verified 12/11/23 08:20 [From Neosporin INFECTION ([id number])] neomycin AdvReac Mild SKIN Verified 12/11/23 08:20 [From Neosporin INFECTION ([id number])] polymyxin B AdvReac Mild SKIN Verified 12/11/23 08:20 [From Neosporin INFECTION ([id number])] Home Meds Home Medications Medication Instructions Recorded Confirmed calcium carbonate 600 mg PO TID 06/29/19 02/20/25 cyclobenzaprine 5 mg tablet 5 mg PO HS PRN MUSCLE SPASMS 06/29/19 02/20/25 fluticasone propionate 50 2 sprays intranasal DAILY 06/29/19 02/20/25 mcg/actuation nasal spray,suspension furosemide 20 mg tablet 20 mg PO QAM 06/29/19 02/20/25 iron,carbonyl 65 mg-vitamin C 125 1 tab PO TID 06/29/19 02/20/25 mg tablet,delayed release (Vitron-C) levothyroxine 88 mcg tablet 88 mcg PO QAM 06/29/19 02/20/25 omeprazole 20 mg tablet,delayed 40 mg PO QAM 06/29/19 02/20/25 release duloxetine 60 mg capsule,delayed 60 mg PO QAM 06/14/20 02/20/25 release fexofenadine 60 mg-pseudoephedrine 1 tab PO Q12H PRN Allergy Symptoms 06/14/20 02/20/25 ER 120 mg tablet,ext.release,12 hr (Ayde-D 12 Hour) bupropion HCl 150 mg tablet,12 hr 150 - 300 mg PO UD 04/09/21 02/20/25 sustained-release (Wellbutrin SR) oxycodone-acetaminophen 10 mg-325 1 tab PO Q6H PRN Severe Pain 04/09/21 02/20/25 mg tablet (Scale Score 7-10) warfarin 10 mg tablet See Rx Instructions .Route .COMPLEX 07/03/21 02/20/25 Results & Data (ED) Vital Signs Vital Signs - 24 hr 02/20/25 12:53 02/20/25 13:12 02/20/25 13:13 Temperature 38.3 C H Temperature Source Oral Pulse Rate 80 78 Respiratory Rate 18 18 Blood Pressure 161/71 H Blood Pressure Mean 101 Pulse Oximetry 83 L Oxygen Delivery Method Room Air Sepsis Recent Fever Within 48 Hours Yes Sepsis New/Unexplained Change in Mental Status Yes Sepsis Action Taken by Nursing Physician Notified Laboratory Data 02/20/25 13:30 02/20/25 13:30 Lab Results 02/20/25 02/20/25 02/20/25 Range/Units 13:30 13:39 14:04 WBC 14.39 H (4.8-10.8) K/ul RBC 4.28 (4.20-5.40) M/uL Hgb 13.0 (12.0-16.0) g/dl POC Hgb 13.3 (12.0-16.0) g/dl Hct 39.2 (37.0-47.0) % POC Hct 39 (37-47) % MCV 91.6 (80.0-100.0) fL MCH 30.4 (25.0-34.0) pg MCHC 33.2 (32.0-36.0) g/dL RDW Std Deviation 46.3 (36.4-46.3) fL RDW Coeff of Deandre 13.7 (11.5-14.5) % Plt Count 157 (130-400) K/uL MPV 10.1 (9.4-12.4) fL Immature Gran % (Auto) 0.4 % Neut % (Auto) 86.8 % Lymph % (Auto) 4.5 % [place] % (Auto) 8.1 % Eos % (Auto) 0.0 % Baso % (Auto) 0.2 % Neut # (Auto) 12.49 H (1.40-6.50) K/uL Lymph # (Auto) 0.65 L (1.20-3.40) K/uL [place] # (Auto) 1.16 H (0.11-0.59) K/uL Eos # (Auto) 0.00 (0.00-0.50) K/uL Baso # (Auto) 0.03 (0.00-0.20) K/uL Immature Gran # (Auto) 0.06 (0.01-0.20) K/uL PT 23.6 H (9.0-12.0) Seconds INR 2.3 H (0.9-1.1) POC Sodium 138 (135-144) mmol/L Sodium 138 (136-145) mmol/L POC Potassium 3.9 (3.3-5.0) mmol/L Potassium 3.9 (3.5-5.1) mmol/L POC Chloride 102 (101-112) mmol/L Chloride 104 (98-107) mmol/L Carbon Dioxide 27 (21-32) mmol/L POC Total CO2 23 L (24-31) mmol/L Anion Gap 7 (3-11) POC Anion Gap 18.0 (16-25) mmol/L POC BUN 11 (7-18) mg/dl BUN 12 (6-23) mg/dl Creatinine 0.72 (0.6-1.2) mg/dl POC Creatinine 0.8 (0.6-1.3) mg/dl Est Cr Clr Drug Dosing 162.2 ml/min eGFR 97.46 BUN/Creatinine Ratio 16.7 (10-20) Glucose 100 H (70-99(Fasting)) mg/dl POC Glucose (other) 102 H (70-99) mg/dl Lactate 0.9 (0.4-2.0) mmol/L Calcium 8.5 L (8.6-10.3) mg/dl POC Ioniz Calcium Lida 1.09 L (1.12-1.32) mmol/l Total Bilirubin 0.7 (0.2-1.0) mg/dl AST 24 (13-39) U/L ALT 16 (7-52) U/L Alkaline Phosphatase 75 (34-104) U/L Troponin I High Sens 23.6 H (0-14) pg/ml Total Protein 6.6 (6.0-8.3) gm/dl Albumin 3.5 (3.4-5.0) gm/dl Globulin 3.1 (2.5-4.0) gm/dl Albumin/Globulin Ratio 1.1 (0.9-2) Lipase 7 L (11-82) U/L Procalcitonin 0.49 (0-0.5) ng/ml Adenovirus (PCR) Not Detected (NotDetected) B. pertussis DNA (PCR) Not Detected (NotDetected) B.parapertussis DNA PCR Not Detected (NotDetected) C. pneumoniae DNA (PCR) Not Detected (NotDetected) Coronavirus OC43 (PCR) Not Detected (NotDetected) Coronavirus HKU1 (PCR) Not Detected (NotDetected) Coronavirus 229E (PCR) Not Detected (NotDetected) SARS-CoV-2 (PCR) Not Detected (NotDetected) Coronavirus NL63 (PCR) Not Detected (NotDetected) Human Metapneumovir PCR Not Detected (NotDetected) Influenza Type A (PCR) Not Detected (NotDetected) Influenza Type B (PCR) Not Detected (NotDetected) M. pneumoniae (PCR) Not Detected (NotDetected) Parainfluenza 1 (PCR) Not Detected (NotDetected) Parainfluenza 2 (PCR) Not Detected (NotDetected) Parainfluenza 3 (PCR) Not Detected (NotDetected) Parainfluenza 4 (PCR) Not Detected (NotDetected) RSV (PCR) Not Detected (NotDetected) Entero/Rhino (PCR) Not Detected (NotDetected) Administered Medications Discontinued Medications Furosemide (Furosemide Inj 20 Mg/2 Ml Vial) 20 mg IV ONE ONE Stop: 02/20/25 15:03 Last Admin: 02/20/25 16:21 Dose: 20 mg Documented By: DEANGELO Acetaminophen (Ofirmev) 1,000 mg in 100 mls @ 400 mls/hr IV NOW STA Stop: 02/20/25 13:43 Last Infusion: 02/20/25 14:22 Dose: Infused Documented By: Admin: 02/20/25 13:57 Dose: 400 mls/hr Documented By: CAP Vancomycin HCl 2,750 mg/ (Sodium Chloride) 555 mls @ 200 mls/hr IV NOW ONE Stop: 02/20/25 16:17 Last Admin: 02/20/25 14:39 Dose: 200 mls/hr Documented By: CAP Piperacillin Sod/Tazobactam Sod (Zosyn) 4.5 gm in 100 mls @ 200 mls/hr IV NOW ONE; Protocol Stop: 02/20/25 15:24 Last Infusion: 02/20/25 18:29 Dose: Infused Documented By: Admin: 02/20/25 16:20 Dose: 200 mls/hr Documented By: DEANGELO Ioversol (Optiray 320 125ml) 118 ml IV ONCE ONE Stop: 02/20/25 16:10 Last Admin: 02/20/25 16:10 Dose: 118 ml Documented By: KAMINI Imaging Data Radiologist's Impression: Chest X-Ray 02/20/25 13:28 XR chest 1V portable CLINICAL HISTORY: Fever, sob COMPARISON STUDY: 04/09/2021 FINDINGS: Stable cardiomegaly with increased pulmonary vascular congestion. There is increased pulmonary interstitial prominence. No lobar consolidation or pleural effusion. No pneumothorax. IMPRESSION: 1. CHF. 2. Pulmonary interstitial prominence could represent pulmonary edema or interstitial pneumonia. ACT 112: Negative or not required by law. Electronically signed by: Khalif Arzate M.D. 02/20/2025 2:17 PM Chest CTA 02/20/25 15:40 Clinical history: Rule out pulmonary embolism Technique: Axial computed tomography images were obtained of the chest after the administration of intravenous contrast according to the CT angiogram protocol Findings: There is no definite sign of pulmonary embolism. There are mild multifocal alveolar and groundglass opacities in the right upper lobe, likely due to pneumonia. There are mild groundglass opacities in both lower lobes that could be due to a combination of atelectasis and pneumonia. There is mild lingular atelectasis. There are small bilateral pleural effusions. There is no pneumothorax. There is no sign of pulmonary fibrosis or other diffuse interstitial process. No endobronchial lesion is seen There is no mediastinal, hilar, or axillary adenopathy. The ascending thoracic aorta is mildly aneurysmal, measuring up to 4.6 cm in diameter. There is no pericardial effusion. There is coronary atherosclerosis. There is a small hiatal hernia. Postsurgical changes are seen involving the stomach. No fracture is seen. No focal osseous lesion is evident Impression: 1. No definite sign of pulmonary embolism 2. Small bilateral pleural effusions 3. Apparent mild bilateral pneumonia 4. Mild thoracic aortic aneurysm 5. Small hiatal hernia ACT 112: Positive. There are findings on this exam that require communication between the performing entity and the patient following Patient Test Result Information Act ([place] ACT 112) guidelines. Electronically signed by Brian Parra 02-20-2025 4:32 PM Discharge Plan Visit Data Chief Complaint: Fever Stated Complaint: FEVER, ED Provider: Domenico Florence Discharge Problem: Bilateral cellulitis of lower leg, Sepsis, Hypoxia Patient Disposition: Admitted As Inpatient Condition: Serious Discharge Instructions Interventions: ED Discharge Assessment Last Done: 02/20/25 17:45
[2025-02-20 15:07] LABS: Adenovirus PCR Not Detected (NotDetected); Bordetella parapertussis PCR Not Detected (NotDetected); Bordetella pertussis PCR Not Detected (NotDetected); Chlamydia pneumoniae PCR Not Detected (NotDetected); Coronavirus 229E PCR Not Detected (NotDetected); Coronavirus CoV-2 (COVID19)PCR Not Detected (NotDetected); Coronavirus HKU1 PCR Not Detected (NotDetected); Coronavirus NL63 PCR Not Detected (NotDetected); Coronavirus OC43PCR Not Detected (NotDetected); Human Metapneumovirus PCR Not Detected (NotDetected); Influenza A PCR Not Detected (NotDetected); Influenza B PCR Not Detected (NotDetected); Mycoplasma pneumoniae PCR Not Detected (NotDetected); Parainfluenza Virus 1 PCR Not Detected (NotDetected); Parainfluenza Virus 2 PCR Not Detected (NotDetected); Parainfluenza Virus 3 PCR Not Detected (NotDetected); Parainfluenza Virus 4 PCR Not Detected (NotDetected); Respiratory Syncytial VirusPCR Not Detected (NotDetected); Rhinovirus/Enterovirus PCR Not Detected (NotDetected)
--- NOTE | 2025-02-20 15:52 | Electrocardiogram Report ---
Test Reason : Blood Pressure : */* mmHG Vent. Rate : 80 BPM Atrial Rate : 80 BPM P-R Int : 182 ms QRS Dur : 96 ms QT Int : 352 ms P-R-T Axes : 56 13 40 degrees QTcB Int : 405 ms Normal sinus rhythm Low voltage QRS Cannot rule out Anterior infarct (cited on or before 31-Jul-2023) Abnormal ECG When compared with ECG of 31-Jul-2023 01:25, No significant change was found Confirmed by Robel Bennett ([id number]) on 02/20/2025 3:52:02 PM Referred By: REFERRED SELF Confirmed By: Robel Bennett
[2025-02-20 15:55] LABS: Base Excess VBG 0.9 mEq/L; HCO3 VBG 24 mmol/L; Oxygen Saturation VBG 97.4 %; PCO2 VBG 33 mmHg (38-50); PO2 VBG 76 mmHg; pH VBG 7.47 (7.36-7.41)
--- NOTE | 2025-02-20 16:07 | History & Physical Report ---
Date of Service February 20, 2025 Assessment & Plan (1) Sepsis: Plan: 55-year-old female with past medical history significant for heterozygous MTHFR mutation, factor V Leiden mutation heterozygous, history of DVT, history of thrombophlebitis, on Coumadin, hypothyroidism, obstructive sleep apnea not using CPAP or oxygen as per significant other, hypertension, chronic pain syndrome, history of kidney stones, history of major depression with severe psychotic features who lives at home with her significant other was brought in because of fever and confusion. Patient is somewhat drowsy but arousable. Does not want to answer any questions. Difficult to get her to answer. Knows that she is in the ER. Knows her name. Could not tell current dates. Denies any headache. Denies neck pain. Denies chest pain. Denies shortness of breath. Denies nausea. Denies abdominal pain. Denies any diarrhea. Patient says that she ambulates without support. She also said that she uses oxygen in the nighttime.At one point in ER she was requiring oxygen but currently without oxygen she is saturating okay . Her significant other brought her to the hospital. Called significant other. As per significant other patient started to get sick Thursday night. She was complaining of tiredness and whole body ache. And her right leg is somewhat more erythematous. And last night or today she started to have fever and some confusion and was brought to the ER. As per significant other no cough other than usual. No nausea. No diarrhea. As per significant other patient does not uses oxygen or CPAP in the nighttime. Patient has history of cellulitis in both legs. In April 2021 she was transferred to [place] for abscess of the right lower extremity and she is status post IR drainage. She was again admitted on 05/25/2021 for left leg cellulitis and at the time deep wound cultures grew E. coli and Pseudomonas and she was discharged on cefepime. Sepsis Confusion VBG okay Right lower extremity cellulitis Pneumonia ER started empirically on Vanco and Zosyn which will be continued and azithromycin added for pneumonia Lactic acid is 0.9 Procalcitonin 0.4 Hemodynamics okay currently Will follow the cultures Will follow UA Question of pneumonia will follow CT chest-mild b/l pneumonia Will also follow CT head and abdomen pelvis as patient has history of kidney stones-no acute findings Will follow CT head for confusion- no acute findings Close monitoring telemetry Hypoxia For some time in the ER Chest x-ray possible CHF versus pneumonia ER ordered 1 dose of IV Lasix [address] chest and BNP and echo echo from 11/2024 Normal Ef at 55% and no significant valvular disease ct chest showing pneumonia ordered gentle fluids Close monitor Mild elevation troponin EKG okay Will follow serial enzymes and echo Obstructive sleep apnea Not using oxygen or CPAP as per significant other VBG okay Seems following with sleep We will place on oxygen and monitor Hypothyroidism Continue Synthyroid Chronic pain syndrome Hold home narcotic pain medications for now History of DVT MTHFR mutation Factor V Leiden mutation On Coumadin INR therapeutic To monitor PT/INR GERD On omeprazole Depression on Wellbutrin on duloxetine Lower extremity edema Continue home Lasix 20 milligrams daily DVT prophylaxis INR therapeutic Follow PT/INR Disposition Telemetry Full code. History of Present Illness Chief Complaint: Sepsis, confusion, cellulitis Primary Care Provider: Krzysztof Pickering MD 55-year-old female with past medical history significant for heterozygous MTHFR mutation, factor V Leiden mutation heterozygous, history of DVT, history of thrombophlebitis, on Coumadin, hypothyroidism, obstructive sleep apnea not using CPAP or oxygen as per significant other, hypertension, chronic pain syndrome, history of kidney stones, history of major depression with severe psychotic features who lives at home with her significant other was brought in because of fever and confusion. Patient is somewhat drowsy but arousable. Does not want to answer any questions. Difficult to get her to answer. Knows that she is in the ER. Knows her name. Could not tell current dates. Denies any headache. Denies neck pain. Denies chest pain. Denies shortness of breath. Denies naus ea. Denies abdominal pain. Denies any diarrhea. Patient says that she ambulates without support. She also said that she uses oxygen in the nighttime.At one point in ER she was requiring oxygen but currently without oxygen she is saturating okay . Her significant other brought her to the hospital. Called significant other. As per significant other patient started to get sick Thursday night. She was complaining of tiredness and whole body ache. And her right leg is somewhat more erythematous. And last night or today she started to have fever and some confusion and was brought to the ER. As per significant other no cough other than usual. No nausea. No diarrhea. As per significant other patient does not uses oxygen or CPAP in the nighttime. Patient has history of cellulitis in both legs. In April 2021 she was transferred to [place] for abscess of the right lower extremity and she is status post IR drainage. She was again admitted on 05/25/2021 for left leg cellulitis and at the time deep wound cultures grew E. coli and Pseudomonas and she was discharged on cefepime. Past medical history. As mentioned above. Past surgical history. Bilateral carpal tunnel surgery. Colonoscopy. Dilatation curettage for irregular bleeding. EGD. IR aspiration of abscess 04/16/2021. Laparoscopic procedure of liver. Jaw surgery for fitting of partial dentures. Laparoscopic sleeve gastrectomy in 2014. Social history. Quit smoking 2000. Smoked 0.5 pack a day for 2 years. No alcohol use. No drug use. Family history. Maternal aunt had breast cancer. Cousin had breast cancer. Mother had diabetes. Blocked bowel. Hypertension. Thyroid disorder. Father had heart disorder. Paternal grandfather had heart disorder. Allergies Allergy/AdvReac Type Severity Reaction Status Date / Time latex Allergy Intermediate SKIN Verified 12/11/23 08:20 IRRITATION nylon Allergy Mild erythema/pus Verified 12/11/23 08:20 nylon sutures adhesive AdvReac Intermediate skin Verified 12/11/23 08:20 tearing bacitracin AdvReac Mild SKIN Verified 12/11/23 08:20 [From Neosporin INFECTION ([id number])] neomycin AdvReac Mild SKIN Verified 12/11/23 08:20 [From Neosporin INFECTION ([id number])] polymyxin B AdvReac Mild SKIN Verified 12/11/23 08:20 [From Neosporin INFECTION ([id number])] Home Medications Medication Instructions Recorded Confirmed Type calcium carbonate 600 mg PO TID 06/29/19 02/20/25 History cyclobenzaprine 5 mg tablet 5 mg PO HS PRN MUSCLE SPASMS 06/29/19 02/20/25 History fluticasone propionate 50 2 sprays intranasal DAILY 06/29/19 02/20/25 History mcg/actuation nasal spray,suspension furosemide 20 mg tablet 20 mg PO QAM 06/29/19 02/20/25 History iron,carbonyl 65 mg-vitamin C 125 1 tab PO TID 06/29/19 02/20/25 History mg tablet,delayed release (Vitron-C) levothyroxine 88 mcg tablet 88 mcg PO QAM 06/29/19 02/20/25 History omeprazole 20 mg tablet,delayed 40 mg PO QAM 06/29/19 02/20/25 History release duloxetine 60 mg capsule,delayed 60 mg PO QAM 06/14/20 02/20/25 History release fexofenadine 60 mg-pseudoephedrine 1 tab PO Q12H PRN Allergy Symptoms 06/14/20 02/20/25 History ER 120 mg tablet,ext.release,12 hr (Ayde-D 12 Hour) bupropion HCl 150 mg tablet,12 hr 150 - 300 mg PO UD 04/09/21 02/20/25 History sustained-release (Wellbutrin SR) oxycodone-acetaminophen 10 mg-325 1 tab PO Q6H PRN Severe Pain 04/09/21 02/20/25 History mg tablet (Scale Score 7-10) warfarin 10 mg tablet See Rx Instructions .Route .COMPLEX 07/03/21 02/20/25 History Past Med/Surg History Problem List Hypoxia (Acute) Sepsis (Acute) Bilateral cellulitis of lower leg (Acute) Encounter for pre-operative examination UTI (urinary tract infection) Small bowel obstruction Partial small bowel obstruction (Acute) Venous stasis ulcer (Acute) Supratherapeutic INR Iron deficiency anemia Leukocytosis (Acute) Pneumonia (Acute) Cellulitis of leg, right (Acute) Hypothyroidism MDD (major depressive disorder) Hypokalemia Acute encephalopathy SIRS (systemic inflammatory response syndrome) (Acute) Fever (Acute) GERD (gastroesophageal reflux disease) Morbid obesity DVT (deep venous thrombosis) total 3, last DVT ~2014 Factor V deficiency reason for coumadin Narcotic dependence History of gastric bypass ~2007 Medical History Osteoarthritis Hypothyroidism Anemia Depression History of kidney stones no sx. Sleep apnea no device currently Anticoagulated on warfarin Narcotic dependence Chronic back pain GERD (gastroesophageal reflux disease) Factor V deficiency reason for coumadin DVT (deep venous thrombosis) total 3, last DVT ~2014 Morbid obesity Thrombophlebitis of right saphenous vein hx ~2010 Surgical History History of esophagogastroduodenoscopy (EGD) Nausea and vomiting after administration of anesthetic agent History of dilatation and curettage History of carpal tunnel release rt/left History of colonoscopy History of tooth extraction History of gastric bypass ~2007 Family History Other No family history of adverse response to anesthesia Social History Smoking Status: Never smoker Tobacco Type: Cigarettes Second Hand Exposure: No; Do You Dip or Chew Tobacco: No; Hx Alcohol Use: Yes Hx Substance Use: Yes Last Used Substance Other:: decades ago Preferred Language: Malay Communication Ability: Effective Hearing Ability: Normal Lead Front Desk Agent Required: No Beliefs That Will Affect Care: None marital status: Single Current Living Situation: Significant Other Current Living Situation Comment: WITH BOYFRIEND current occupational status: disabled Feels Safe at Home: Yes Safety Concerns: Feels Safe At This Time Diet: regular caffeine: Yes (coffee) during the past year weight has: remained stable Physical Activity Frequency: Does not Exercise Do you think of yourself as: straight/heterosexual Gender Identity: Female Assistive Devices: Glasses Review of Systems Review of Systems: Unobtainable due to reduced consciousness Physical Exam Physical Exam: General- Drowsy Head- atraumatic Eyes- PERRL. ENT- oropharynx dry Neck- supple, no JVD. Lungs- clear to auscultation no wheezing or crackles Heart- regular rhythm; no murmur, no gallop. Abdomen- normal bowel sounds, soft, nontender, no distension Extremities- b/l lower extremity lymphedema and chronic skin changes seen. right lower extremity erythematous below knee region Neuro- alert, oriented x 2; PERRL, no facial palsy; no dysarthria; moves extremities Results & Data Results & Data Vital Signs (Past 12 Hours) Vital Signs Temp Pulse Pulse Resp BP BP Pulse Ox 02/20/25 15:52 37.3 C 75 28 H 155/82 H 94 02/20/25 13:13 18 02/20/25 13:12 78 02/20/25 12:53 38.3 C H 80 18 161/71 H 83 L O2 Del Method 02/20/25 15:52 Room Air 02/20/25 13:13 02/20/25 13:12 02/20/25 12:53 Room Air Diagnostic Findings Laboratory Results WBC 14.39 K/ul (4.8-10.8) H 02/20/25 13:30 RBC 4.28 M/uL (4.20-5.40) 02/20/25 13:30 Hgb 13.0 g/dl (12.0-16.0) 02/20/25 13:30 POC Hgb 13.3 g/dl (12.0-16.0) 02/20/25 13:39 Hct 39.2 % (37.0-47.0) 02/20/25 13:30 POC Hct 39 % (37-47) 02/20/25 13:39 MCV 91.6 fL (80.0-100.0) 02/20/25 13:30 MCH 30.4 pg (25.0-34.0) 02/20/25 13:30 MCHC 33.2 g/dL (32.0-36.0) 02/20/25 13:30 RDW Std Deviation 46.3 fL (36.4-46.3) 02/20/25 13:30 RDW Coeff of Deandre 13.7 % (11.5-14.5) 02/20/25 13:30 Plt Count 157 K/uL (130-400) 02/20/25 13:30 MPV 10.1 fL (9.4-12.4) 02/20/25 13:30 Immature Gran % (Auto) 0.4 % 02/20/25 13:30 Neut % (Auto) 86.8 % 02/20/25 13:30 Lymph % (Auto) 4.5 % 02/20/25 13:30 [place] % (Auto) 8.1 % 02/20/25 13:30 Eos % (Auto) 0.0 % 02/20/25 13:30 Baso % (Auto) 0.2 % 02/20/25 13:30 Neut # (Auto) 12.49 K/uL (1.40-6.50) H 02/20/25 13:30 Lymph # (Auto) 0.65 K/uL (1.20-3.40) L 02/20/25 13:30 [place] # (Auto) 1.16 K/uL (0.11-0.59) H 02/20/25 13:30 Eos # (Auto) 0.00 K/uL (0.00-0.50) 02/20/25 13:30 Baso # (Auto) 0.03 K/uL (0.00-0.20) 02/20/25 13:30 Immature Gran # (Auto) 0.06 K/uL (0.01-0.20) 02/20/25 13:30 PT 23.6 Seconds (9.0-12.0) H 02/20/25 13:30 INR 2.3 (0.9-1.1) H 02/20/25 13:30 VBG pH 7.47 (7.36-7.41) H 02/20/25 15:46 VBG pCO2 33 mmHg (38-50) L 02/20/25 15:46 VBG pO2 76 mmHg 02/20/25 15:46 VBG HCO3 24 mmol/L 02/20/25 15:46 VBG O2 Saturation 97.4 % 02/20/25 15:46 VBG Base Excess 0.9 mEq/L 02/20/25 15:46 POC Sodium 138 mmol/L (135-144) 02/20/25 13:39 Sodium 138 mmol/L (136-145) 02/20/25 13:30 POC Potassium 3.9 mmol/L (3.3-5.0) 02/20/25 13:39 Potassium 3.9 mmol/L (3.5-5.1) 02/20/25 13:30 POC Chloride 102 mmol/L (101-112) 02/20/25 13:39 Chloride 104 mmol/L (98-107) 02/20/25 13:30 Carbon Dioxide 27 mmol/L (21-32) 02/20/25 13:30 POC Total CO2 23 mmol/L (24-31) L 02/20/25 13:39 Anion Gap 7 (3-11) 02/20/25 13:30 POC Anion Gap 18.0 mmol/L (16-25) 02/20/25 13:39 POC BUN 11 mg/dl (7-18) 02/20/25 13:39 BUN 12 mg/dl (6-23) 02/20/25 13:30 Creatinine 0.72 mg/dl (0.6-1.2) 02/20/25 13:30 POC Creatinine 0.8 mg/dl (0.6-1.3) 02/20/25 13:39 Est Cr Clr Drug Dosing 162.2 ml/min 02/20/25 13:30 eGFR 97.46 02/20/25 13:30 BUN/Creatinine Ratio 16.7 (10-20) 02/20/25 13:30 Glucose 100 mg/dl (70-99(Fasting)) H 02/20/25 13:30 POC Glucose (other) 102 mg/dl (70-99) H 02/20/25 13:39 Lactate 0.9 mmol/L (0.4-2.0) 02/20/25 13:30 Calcium 8.5 mg/dl (8.6-10.3) L 02/20/25 13:30 POC Ioniz Calcium Lida 1.09 mmol/l (1.12-1.32) L 02/20/25 13:39 Total Bilirubin 0.7 mg/dl (0.2-1.0) 02/20/25 13:30 AST 24 U/L (13-39) 02/20/25 13:30 ALT 16 U/L (7-52) 02/20/25 13:30 Alkaline Phosphatase 75 U/L (34-104) 02/20/25 13:30 Troponin I High Sens 23.6 pg/ml (0-14) H 02/20/25 13:30 Total Protein 6.6 gm/dl (6.0-8.3) 02/20/25 13:30 Albumin 3.5 gm/dl (3.4-5.0) 02/20/25 13:30 Globulin 3.1 gm/dl (2.5-4.0) 02/20/25 13:30 Albumin/Globulin Ratio 1.1 (0.9-2) 02/20/25 13:30 Lipase 7 U/L (11-82) L 02/20/25 13:30 Procalcitonin 0.49 ng/ml (0-0.5) 02/20/25 13:30 Adenovirus (PCR) Not Detected (NotDetected) 02/20/25 14:04 B. pertussis DNA (PCR) Not Detected (NotDetected) 02/20/25 14:04 B.parapertussis DNA PCR Not Detected (NotDetected) 02/20/25 14:04 C. pneumoniae DNA (PCR) Not Detected (NotDetected) 02/20/25 14:04 Coronavirus OC43 (PCR) Not Detected (NotDetected) 02/20/25 14:04 Coronavirus HKU1 (PCR) Not Detected (NotDetected) 02/20/25 14:04 Coronavirus 229E (PCR) Not Detected (NotDetected) 02/20/25 14:04 SARS-CoV-2 (PCR) Not Detected (NotDetected) 02/20/25 14:04 Coronavirus NL63 (PCR) Not Detected (NotDetected) 02/20/25 14:04 Human Metapneumovir PCR Not Detected (NotDetected) 02/20/25 14:04 Influenza Type A (PCR) Not Detected (NotDetected) 02/20/25 14:04 Influenza Type B (PCR) Not Detected (NotDetected) 02/20/25 14:04 M. pneumoniae (PCR) Not Detected (NotDetected) 02/20/25 14:04 Parainfluenza 1 (PCR) Not Detected (NotDetected) 02/20/25 14:04 Parainfluenza 2 (PCR) Not Detected (NotDetected) 02/20/25 14:04 Parainfluenza 3 (PCR) Not Detected (NotDetected) 02/20/25 14:04 Parainfluenza 4 (PCR) Not Detected (NotDetected) 02/20/25 14:04 RSV (PCR) Not Detected (NotDetected) 02/20/25 14:04 Entero/Rhino (PCR) Not Detected (NotDetected) 02/20/25 14:04 Impressions Chest X-Ray 02/20/25 13:28 XR chest 1V portable CLINICAL HISTORY: Fever, sob COMPARISON STUDY: 04/09/2021 FINDINGS: Stable cardiomegaly with increased pulmonary vascular congestion. There is increased pulmonary interstitial prominence. No lobar consolidation or pleural effusion. No pneumothorax. IMPRESSION: 1. CHF. 2. Pulmonary interstitial prominence could represent pulmonary edema or interstitial pneumonia. ACT 112: Negative or not required by law. Electronically signed by: Khalif Arzate M.D. 02/20/2025 2:17 PM ECG Additional Comments: ECG. Normal sinus rhythm rate of 80. QTc 405. No significant changes found Code Status & VTE Plan VTE Prophylaxis Plan VTE Prophylaxis will be ordered: Yes
[2025-02-20] MEDS: OPTIRAY 320 125ml IV ONE (16:10)
[2025-02-20] MEDS: PIPERACILLIN/TAZOBACTAM 4.5 GM/100 ML BAG IV ONE (16:20)
[2025-02-20] MEDS: FUROSEMIDE INJ 20 MG/2 ML VIAL IV ONE (16:21)
--- NOTE | 2025-02-20 16:33 | CT Scan Report ---
Clinical history: Rule out pulmonary embolism Technique: Axial computed tomography images were obtained of the chest after the administration of intravenous contrast according to the CT angiogram protocol Findings: There is no definite sign of pulmonary embolism. There are mild multifocal alveolar and groundglass opacities in the right upper lobe, likely due to pneumonia. There are mild groundglass opacities in both lower lobes that could be due to a combination of atelectasis and pneumonia. There is mild lingular atelectasis. There are small bilateral pleural effusions. There is no pneumothorax. There is no sign of pulmonary fibrosis or other diffuse interstitial process. No endobronchial lesion is seen There is no mediastinal, hilar, or axillary adenopathy. The ascending thoracic aorta is mildly aneurysmal, measuring up to 4.6 cm in diameter. There is no pericardial effusion. There is coronary atherosclerosis. There is a small hiatal hernia. Postsurgical changes are seen involving the stomach. No fracture is seen. No focal osseous lesion is evident Impression: 1. No definite sign of pulmonary embolism 2. Small bilateral pleural effusions 3. Apparent mild bilateral pneumonia 4. Mild thoracic aortic aneurysm 5. Small hiatal hernia ACT 112: Positive. There are findings on this exam that require communication between the performing entity and the patient following Patient Test Result Information Act ([place] ACT 112) guidelines. Electronically signed by Brian Parra 02-20-2025 4:32 PM
[2025-02-20] MEDS ORDERED: DOXYCYCLINE HYCLATE 100 MG in DEXTROSE 5% MINI-B 100 ML IV STA (17:21)
--- NOTE | 2025-02-20 17:49 | CT Scan Report ---
Clinical History: Confusion. Technique: Axial computed tomography images were obtained of the brain from the vertex to the skull base without intravenous contrast. Comparison is made to the prior CT dated 04/09/2021 Findings: There is no sign of intracranial hemorrhage. There is normal mccarthy-white matter differentiation with no sign of acute or old infarction. No midline shift or other form of herniation is identified. There is no hydrocephalus. No obvious mass lesion is seen on this noncontrast examination. The visualized portions of the orbits and paranasal sinuses appear unremarkable. The mastoid air cells appear clear Impression: Unremarkable noncontrast CT of the brain Electronically signed by Brian Parra 02-20-2025 5:46 PM
--- NOTE | 2025-02-20 17:54 | CT Scan Report ---
Clinical History: Sepsis Technique: Axial computed tomography images were obtained of the abdomen and pelvis without intravenous contrast. Comparison is made to the prior CT dated 07/31/2023 Findings: The liver is overall of normal size, attenuation, and contour with no sign of cirrhosis or significant fatty infiltration. No definite liver mass lesion is seen on this noncontrast study. The gallbladder appears unremarkable. No bile duct dilatation is noted. The spleen is of normal size. No focal splenic lesion is evident. The pancreas appears normal with no sign of acute or chronic pancreatitis and no mass lesion noted. The pancreatic duct is of normal caliber. The adrenal glands appear unremarkable. There is excreted contrast within the renal collecting systems bilaterally. There is no hydronephrosis or perinephric stranding. No definite renal mass lesion is identified. The aorta is of normal caliber. No abdominal adenopathy is seen. There is a small hiatal hernia. There are postsurgical changes involving the stomach. There is no sign of small bowel obstruction. The colon appears unremarkable. The appendix appears normal also. No free intraperitoneal fluid or air is identified. There is excreted contrast within the urinary bladder. No definite bladder mass lesion is evident. The iliac arteries are of normal caliber. No pelvic adenopathy is noted. There is bilateral lower lobe atelectasis. There is partially visualized irregular alveolar opacity in the right upper lobe There is spinal stenosis at L4-5. No fracture is identified. No focal osseous lesion is seen Impression: 1. Partially visualized right upper lobe opacity that could be due to pneumonia, though neoplasm is also possible. Chest CT could be obtained for complete evaluation of the lungs 2. Small hiatal hernia 3. Spinal stenosis at L4-5 ACT 112: Positive. There are findings on this exam that require communication between the performing entity and the patient following Patient Test Result Information Act ([place] ACT 112) guidelines. Electronically signed by Brian Parra 02-20-2025 5:52 PM
[2025-02-20] MEDS ORDERED: NITROGLYCERIN SL 0.4 MG/TAB TAB SL PRN (18:10)
[2025-02-20] MEDS: WARFARIN SOD 5 MG TAB PO SCH (21:44)
[2025-02-20] MEDS: CALCIUM CARBONATE 1250MG TAB PO SCH (21:45)
[2025-02-20] MEDS: AZITHROMYCIN 500 MG/255 ML BAG IV SCH (22:17)
[2025-02-20] MEDS: SODIUM CHLORIDE 0.9% 1,000 ML IV SCH (22:24)
--- OUTSIDE RECORDS SUMMARY | 2025-02-20 22:50 | External Medical Summary | Summary of Care ---
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 documented as of this encounter (statuses as of 01/19/2025) Medications Folic Acid 5 MG CAPS Take 1 Tab by mouth daily. Active fexofenadine-ps eudoephedrine ER 60-120 mg per tab (JACINTO-D) 60-120 MG TB12 Take 1 Tablet by mouth 2 times a day as needed for Allergies. Active Tylenol 325 MG Oral Capsule (Acetaminophen) Take by mouth as needed for Pain. Two tablets Active Vitron-C 65-125 MG Oral Tablet (Iron-Vitamin C) Take one pill by mouth twice a day 60 Tablet 5 022 Active Oxybutynin Chloride ER 5 MG Oral Tablet Extended Release 24 Hour (Ditropan XL)Indications: Urinary incontinence, urge Take 1 Tablet by mouth in the morning. In the morning.. 30 Tablet 023 Active Cyclobenzaprine HCl 5 MG Oral Tablet (Flexeril)Indic ations:Acute pain of left shoulder TAKE ONE TABLET BY MOUTH AT BEDTIME NEEDED FOR MUSCLE SPASMS 30 Tablet 023 Active Ventolin HFA 108 (90 Base) MCG/ACT Inhalation Aerosol SolutionIndicat ions:Wheezing Inhale 2 Puffs by mouth every 4 hours as needed for Wheezing. 18 g 024 Active Spacer/Aero-Hol ding Chambers DeviceIndicatio ns:Wheezing Use with inhaler. 1 Each 024 Active Vitamin D 50 MCG (2000 UT) Oral Capsule Take 1 Capsule by mouth in the morning. Active Calcium Citrate-Vitamin D3 315-6.25 MG-MCG Oral Tablet (Citracal Maximum) Take by mouth. 1 tab twice daily Active oxyCODONE-Aceta minophen 10-325 MG Oral Tablet (Percocet)Indic ations:Chronic pain syndrome Take 1 Tablet by mouth every 6 hours as needed for Pain, Severe. 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 Do not cut, crush or chew. 90 Capsule 3 025 Active DULoxetine HCl 60 MG Oral Capsule Delayed Release Particles (Cymbalta) Take 1 Capsule by mouth in the morning. 90 Capsule 3 Active Fluticasone Propionate 50 MCG/ACT Nasal Suspension (Flonase) ADMINISTER 2 SPRAYS INTO EACH NOSTRIL DAILY. 48 mL Active Furosemide 20 MG Oral Tablet (Lasix) TAKE 1 TABLET BY MOUTH DAILY FOR FLUID ACCUMULATION OR WEIGHT GAIN. 90 Tablet Active Levothyroxine Sodium 88 MCG Oral Tablet (Levoxyl) TAKE 1 TABLET BY MOUTH EVERY DAY THE FIRST THING IN THE MORNING AT LEAST 30 MIN. PRIOR TO BREAKFAST 90 Tablet 3 025 Active Omeprazole 20 MG Oral Capsule Delayed Release (PriLOSEC)Indic ations:HTN, goal to be determined Take 2 Capsules by mouth in the morning. 180 Capsule 2 Active Warfarin Sodium 10 MG Oral Tablet (Coumadin)Indic ations:Factor 5 Leiden mutation, heterozygous (HCC),Heterozyg ous MTHFR mutation C677T,Acute deep vein thrombosis (DVT) of popliteal vein of left lower extremity (HCC) TAKE 1/2 TO 1 TABLET BY MOUTH EVERY EVENING DIRECTED BY [facility] 90 Tablet 3 Active Levothyroxine Sodium 88 MCG Oral Tablet (Levoxyl) TAKE 1 TABLET BY MOUTH EVERY DAY THE FIRST THING IN THE MORNING AT LEAST 30 MIN. PRIOR TO BREAKFAST 90 Tablet 3 024 2024 Discontinued DULoxetine HCl 60 MG Oral Capsule Delayed Release Particles (Cymbalta) TAKE ONE CAPSULE BY MOUTH DAILY 90 Capsule 3 024 2024 Discontinued buPROPion HCl ER (SR) 150 MG Oral Tablet Extended Release 12 Hour (Wellbutrin SR) TAKE 2 TABLETS BY MOUTH EVERY MORNING AND 1 TABLET IN THE AFTERNOON NOT LATER THAN 1PM 270 Tablet 2 024 2024 Discontinued Warfarin Sodium 10 MG Oral Tablet (Coumadin)Indic ations:Factor 5 Leiden mutation, heterozygous (HCC),Heterozyg ous MTHFR mutation C677T,Acute deep vein thrombosis (DVT) of popliteal vein of left lower extremity (HCC) TAKE 1/2 TO 1 TABLET BY MOUTH EVERY EVENING DIRECTED BY [facility] CLINIC 65 Tablet 3 024 2024 Discontinued(R efill) DULoxetine HCl 30 MG Oral Capsule Delayed Release Particles (Cymbalta)Indic ations: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 Do not cut, crush or chew. 90 Capsule 3 024 2024 Discontinued(R efill) Omeprazole 20 MG Oral Capsule Delayed Release (PriLOSEC)Indic ations:HTN, goal to be determined TAKE 2 CAPSULES DAILY 180 Capsule 3 024 2024 Discontinued(R efill) Fluticasone Propionate 50 MCG/ACT Nasal Suspension (Flonase) ADMINISTER 2 SPRAYS INTO EACH NOSTRIL DAILY. 48 mL 1 024 2024 Discontinued(R efill) Furosemide 20 MG Oral Tablet (Lasix) TAKE 1 TABLET BY MOUTH DAILY FOR FLUID ACCUMULATION OR WEIGHT GAIN. 90 Tablet 1 025 2024 Discontinued(R efill) buPROPion HCl ER (SR) 150 MG Oral Tablet Extended Release 12 Hour (Wellbutrin SR) TAKE 2 TABLETS BY MOUTH EVERY MORNING AND 1 TABLET IN THE AFTERNOON NOT LATER THAN 1PM 270 Tablet 3 025 2024 Discontinued(R efill) DULoxetine HCl 60 MG Oral Capsule Delayed Release Particles (Cymbalta) TAKE ONE CAPSULE BY MOUTH DAILY 90 Capsule 3 025 2024 Discontinued(R efill) Levothyroxine Sodium 88 MCG Oral Tablet (Levoxyl) TAKE 1 TABLET BY MOUTH EVERY DAY THE FIRST THING IN THE MORNING AT LEAST 30 MIN. 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 History of kidney stones 02/04/2021 Chronic bilateral low back pain with bilateral s ciatica 07/19/2020 Chronic insomnia 02/02/2020 Hyperparathyroidism 07/27/2019 Nocturnal hypoxemia 04/19/2019 H/O thrombophlebitis 07/28/2017 H/O deep venous thrombosis 07/28/2017 Overview (07/28/2017): x2 HTN, goal below 140/90 01/20/2017 Hypothyroidism due to acquired atrophy of thyroi d 04/22/2016 S/P partial gastrectomy 03/20/2015 ELAN (obstructive sleep apnea) 10/30/2014 Chronic pain syndrome 10/09/2014 Factor 5 Leiden mutation, heterozygous 4 Overview (11/07/2013): Heterozygous, molecular analysis has detected the R506Q mutation associated with factor V Leiden Osteoarthritis of knee 11/06/2011 SLEEP APNEA, UNSPECIFIED: AHI 28.3 07/23/2010 Overview (11/28/2011): 11/28/11 -- CPAP with 2 LPM 10/25/11 Noct ox RA -- low 67%, mean 91%, <89% 54 mins, ANAIS 15 10/02/11 -- change to heated tubing device, auto CPAP 5-11 cwp, nocturnal ox 08/21/11 CPAP 5-15 cwp [facility] MEDICATION USE AGREEMENT 12/30/2006 Overview (02/20/2009): 02/06/09: Urine screen negative of oxycodone Spondylolisthesis 08/19/2006 Allergic rhinitis due to pollen 01/24/2004 Heterozygous MTHFR mutation C677T documented as of this encounter (statuses as of 01/19/2025) Resolved Problems Problem Noted Date Diagnosed Date Resolved Date Morbid obesity with body mas s index of 70 and over in adult 02/11/2024 03/10/2024 BMI 60.0-69.9, adult 10/27/2022 025 Cellulitis of left lower extremity 06/22/2021 04/11/2022 Abscess of right lower extremity 04/15/2021 06/25/2021 Sepsis 04/15/2021 05/22/2021 Hyperparathyroidism due to v itamin D deficiency 02/04/2021 09/08/2023 Class 3 severe obesity due t o excess calories without serious comorbidity with body mass index (BMI) of 60.0 to 69.9 in adult 02/02/202012/2021 Body mass index (BMI) of 60. 0 to 69.9 in adult 12/13/2018 02/02/2020 Overview: Per Obesity protocol #1 - - Major depressive disorder wi th single episode, in partial remission 07/30/2018 10/11/2024 Body mass index (BMI) of 50. 0 to 59.9 in adult 05/18/2018 12/14/2018 Overview: Per Obesity protocol #1 - Chronic depression 07/28/2017 8 BMI 60.0-69.9, adult 07/06/2017 018 Overview: Per Obesity protocol #1 Deep vein thrombosis (DVT) o f popliteal vein of left lower extremity 11/04/2016 07/28/2017 Overview (11/04/2016): 10/2016 Thrombophlebitis of superfic ial veins of right lower extremity 02/12/2016 07/28/2017 Warfarin anticoagulation 02/12/2016 Elevated parathyroid hormone 11/28/2015 07/27/2019 History of continuous positi ve airway pressure (CPAP) therapy 11/26/2015 07/28/2017 CPAP (continuous positive ai rway pressure) dependence 07/25/2013 11/26/2015 Nocturnal oxygen desaturation 07/25/2013 04/19/2019 [facility] OTHER*[id number] 02/04/2013 07/25/2013 Obesity, morbid (more than 1 00 lbs over ideal weight or BMI > 40) 08/09/2012 07/09/2017 Overview: Per Obesity protocol #1 BMI 70 and over, adult 12/04/201111/28 Obstructive sleep apnea syndrome 09/04/2011 10/02/2011 Genetic Sleep Disorder [facility] Other*[id number] 07/07/2011 05/07/2016 Morbid Obesity, BMI > 40 05/04/201105/2011 Adult body mass index 60.0-69.9 02/02/2011 12/04/2011 Morbid Obesity, BMI > 40 11/20/201010/2010 [facility]*[id number] 07/08/2010 12/18/2015 Overview (12/18/2015): 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 Research*[id number] 03/19/2010 06/26/2010 [facility] OTHER*[id number] 03/19/2010 03/10/2024 Overview (07/25/2013): Completed about 09/2010 Reflux esophagitis 02/18/2010 0 Organic sleep disorder 11/20/200802/26 No advance directive on file 02/20/2005 06/19/2016 Overview (02/20/2005): No, Advance Directive brochure offered , patient declined. Other depression due to gene ral medical condition 05/03/2003 03/04/2016 HYPOTHYROIDISM NOS 05/03/2003 6 HYPERTENSION NOS 05/03/2003 01/20/2017 Overview (08/22/2009): Modified per HTN protocol #16. Morbid obesity, BMI not known 05/03/2003 01/01/2010 Overview (01/01/2010): Per Obesity Taxonomy Heterozygous MTHFR mutation [id number] 07/28/2017 documented as of this encounter (statuses as of 01/19/2025) Immunizations Name Administration Dates Next Due COVID-19 mRNA, LNP-s, No Pre serve, 2-Dose Series (Moderna) 02/16/2021,01/19/2021 COVID-19 mRNA, LNP-s, No Pre serve, 2-Dose Series (Pfizer) 02/08/2021 Diptheria/Tetanus (Adult) 03/24/2017 H1N1 2009 Influenza, IM 11/14/2009 H1N1 2009 Influenza, Intranasal 11/14/2009 Hepatitis B, 20+ yrs 09/08/2023,03/06/2023,11/19 Influenza, Whole Virus 07/13/2019 PPD 06/17/2021 Pneumococcal Conjugate Vacc, 13 Valent (Prevnar) 07/25/2013 Pneumococcal Conjugate Vacci ne, 20-valent ([id number]) 01/09/2025 Pneumococcal Polysaccharide PPV23 (Pneumovax) 07/25/2013 Seasonal Influenza Vac., MDV , IM, 0.5 mL (Fluzone) 08/02/2014,07/25/2013,06/09/2012,09/04,08/16/2010 Seasonal Influenza Virus Vac cine, Unspecified Formulation 06/25/2021,07/19/2020,07/13/2019 Seasonal Influenza, PF, 6 M & above, IM , (FluLaval or Fluzone) 08/04/2023,10/27/2022,06/25/2021,07/19,07/13/2019,07/30/2018,07/28/2017 Seasonal Influenza, Quadrivalent, ID 07/19/2020 Seasonal Influenza, Quadriva lent, No Preserve, IM 06/19/2016,08/01/2015 Seasonal Influenza, Trivalen t, (IIV3), PF, (Fluzone) 10/11/2024 TDAP (age 10 and older)(Boostrix) 03/24/2017 TDAP, Age 7 and older, IM (Adacel) 08/13/2009 Zoster Vaccine Recombinant (Shingrix) 12/21/2020 ,07/20/2020 documented as of this encounter Social History Tobacco Use Types Packs/Day Years Used Date Smoking Tobacco: Former Cigarettes 0.5 2 0 06/28/1999 - 06/28/2001 Smokeless Tobacco: Never Comments:not current Alcohol Use Standard Drinks/Week Comments No 0 (1 standard drink = 0.6 oz pur e alcohol) denies PHQ-2 Answer Date Recorded PHQ Adult Total Score 21 01/09/2025 Hunger Vital Sign Answer Date Recorded Within the past 12 months, y ou worried that your food would run out before you got the money to buy more. Never true 03/10/20 24 Within the past 12 months, t he food you bought just didn't last and you didn't have money to get more. Never true 03/10/2024 Childcare Answer Date Recorded Do you feel overwhelmed with taking care of a child, family member or friend? No 03/10/2024 Does your family need help f inding childcare? (Household - for ages 0-17 years) Not on file 03/10/2024 Clothing Answer Date Recorded Have you been unable to get clothing when it was really needed? No 03/10/2024 Is your family able to get c lothes or diapers when needed? (Household - for ages 0-17 years) Not on file 03/10/2024 Personal Safety Answer Date Recorded Do you feel unsafe or have concerns for your saf ety? No 03/10/2024 Do you have concerns for you r family's safety? (Household - for ages 0-17 years) Not on file 03/10/2024 Utilities Answer Date Recorded Do you have trouble paying y our heating, water, or electric bill? No 03/10/2024 Is your family able to pay t he heat, water, or electric bill? (Household - for ages 0-17 years) Not on file 03/10/2024 Does your family have access to good internet? (Household - for ages 0-17 years) Not on file 03/10/2024 Employment Status Answer Date Recorded Are you unemployed or without regular income? No 03/10/2024 Does the household have a re lar source of income? (Household - for ages 0-17 years) Not on file 03/10/2024 Social Connections Answer Date Recorded How often do you feel lonely or isolated from th ose around you? Rarely 03/10/2024 Financial Resource Strain Answer Date R ecorded Do you have any trouble payi ng for your medications, or do you think you might in the future? No 03/10/2024 Does your family have troubl e paying for medicine? (Household - for ages 0-17 years) Not on file 03/10/2024 Transportation Needs Answer Date Record ed READ ONLY Do you have troubl e getting a ride to medical visits or work? Never True 03/10/2024 Does your family have a hard time getting a ride to doctors visits? (Household - for ages 0-17 years) Not on file 03/10/2024 Has lack of transportation k ept you from medical appointments, meetings, work, or from getting things needed for daily living? Check all that apply. (Adult - for ages 18 years and over) Not on file 03/10/2024 Do you (or your family) have trouble finding or paying for a ride (transportation)? (Household - for ages 0-17 years) Not on file 03/10/2024 Housing Stability Answer Date Recorded Do you currently live in a s helter or have no steady place to sleep at night? No 03/10/2024 READ ONLY Do you think you a re at risk of becoming homeless? No 03/10/2024 Does your family worry about paying for your home or becoming homeless? (Household - for ages 0-17 years) Not on file 0 03/10/2024 Are you homeless or worried that you might be in the future? (Adult - for ages 18 years and over) Not on file Are you (or your family) wei eless or worried that you might be in the future? (Household - for ages 0-17 years) Not on file Food Insecurity Answer Date Recorded Do you need food for this week? No 03/10/2024 Are you able to get enough f ood for your family? (Household - for ages 0-17 years) Not on file 03/10/2024 Does your family need food t his week? (Household - for ages 0-17 years) Not on file 03/10/2024 Do you always have enough fo od for your family? (Household - for ages 0-17 years) Not on file 03/10/2024 Food Insecurity Answer Date Recorded Within the past 12 months, y ou worried that your food would run out before you got the money to buy more. Never true 03/10/20 24 Within the past 12 months, t he food you bought just didn't last and you didn't have money to get more. Never true 03/10/2024 Do you need food for this week? 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 Answer Date of Assessment Author No 06/22/2021 5:50 PM EDT Mary Ellen Cardoza RN * Are you blind or do you have serious difficulty seeing, even when wearing glasses? Answer Date of Assessment Author No 06/22/2021 5:50 PM EDT Mary Ellen Cardoza RN * Do you have serious difficulty walking or climbing stairs? (5 years old or older) Answer Date of Assessment Author Yes 06/22/2021 5:50 PM EDT Mary Ellen Cardoza RN * Do you have difficulty dressing or bathing? (5 years old or older) Answer Date of Assessment Author No 06/22/2021 5:50 PM EDT Mary Ellen Cardoza RN * Because of a physical, mental, or emotional condition, do you have difficulty doing errands alone such as visiting a doctor’s office or shopping? (15 years old or older) Answer Date of Assessment Author No 06/22/2021 5:50 PM EDT Mary Ellen Cardoza RN documented as of this encounter Mental Status * Because of a physical, mental, or emotional condition, do you have serious difficulty concentrating, remembering, or making decisions? (5 years old or older) Answer Entry Date Author No 06/22/2021 5:50 PM EDT Mary Ellen Cardoza RN documented in this encounter Miscellaneous Notes * Addendum Note - Brett Siddiqi RPh - 01/19/2025 11:33 AM EDTAddended by: BRETT SIDDIQI on: 01/19/2025 11:33 AM Modules accepted: Orders * Telephone Encounter - Brett Siddiqi RPh - 01/19/2025 11:32 AM EDT Patient agreeable to mail order. Rerouting/approving refills to mail order. Thank you, Brett Siddiqi, PharmD Clinical Pharmacist [facility] 01/19/25 11:33 AM [phone] * Telephone Encounter - Brett Siddiqi RPh - 01/19/2025 10:37 AM EDT Signed Prescriptions: Disp Refills buPROPion HCl ER (SR) 150 MG Oral Tablet E*270 Ta*3 Sig: TAKE 2 TABLETS BY MOUTH EVERY MORNING AND 1 TABLET IN THE AFTERNOON NOT LATER THAN 1PMAuthorizing Provider:KRZYSZTOF GAGE User: BRETT SIDDIQI DULoxetine HCl 60 MG Oral Capsule Delayed *90 Cap*3 Sig: TAKE ONE CAPSULE BY MOUTH DAILYAuthorizing Provider: KRZYSZTOF GAGE User: BRETT SIDDIQI Levothyroxine Sodium 88 MCG Oral Tablet (L*90 Tab*3 Sig: TAKE 1 TABLETBY MOUTH EVERY DAY THE FIRST THING IN THE MORNING AT LEAST 30 MIN. PRIOR TO BREAKFASTAuthorizing Provider: KRZYSZTOF GAGE User: BRETT SIDDIQI documented in this encounter Plan of Treatment Upcoming Encounters Date Type Department Care Team (Late st Contact Info) Description 03/02/2025 7:30 AM EDT [facility] [address] [place] [id number] [facility] [address] [place] [address] 07/10/2025 10:40 AM EDT Office Visit Endocrinology [address] [place] [phone] Kylee Cox MD [address] [id number] 08/21/2025 9:20 AM EST Office Visit General [facility] [address] [place] [address] Krzysztof Gage MD [address] [facility] [place] [address] Scheduled Procedures Name Priority Associated Diagnoses Date/Ti me COLONOSCOPY FLEXIBLE PROXIMA L DIAGNOSTIC Recall History of colonic polyps Health Maintenance Due Date Last Done Comments Cologuard 01/06/2013 Fecal Occult Blood Test 01/06/2013 Sigmoidoscopy 01/06/2013 COVID-19 Vaccine ( season) 2024 02/16/2021, 02/08/2021, 01/19/2021 Albumin/Creatinine Ratio 04/11/2025 04/11/2022, 04/04 Pap Smear 09/03/2025 09/03/2022, 11/2018, 11/04/2016, Additional history exists GFR 11/23/2025 11/23/2024, 03/05, 03/10/2024, Additional history exists TSH 11/23/2025 11/23/2024, 03/05, 11/04/2023, Additional history exists Depression Monitoring 01/09/2026 01/09/2025 Mammogram 01/13/2026 01/13/2025, 040 06/2024, 01/12/2024, Additional history exists Colonoscopy 12/10/2026 12/11/2023, 030 05/2024, 02/17/2018 Colorectal Cancer Screening 12/10/2026 DTap/Tdap Vaccines (4 - Td or Tdap) 03/24/2027 03/24/2017, 03/24/2017, 08/13/2009 Cervical Cancer Screening 09/03/2027 HPV/Co-Test 09/03/2027 09/03/2022 Diabetes Screening 11/23/2027 11/23/2024, 0 03/21/2024, 03/10/2024, Additional history exists Lipid Panel 11/23/2029 11/23/2024, 10/07, 10/28/2022, Additional history exists Zoster Vaccines Completed 12/21/2020, 07/20/2020 Hepatitis B Vaccine Completed 09/08/2023, 03/06/2023, 11/19/2022 RETIRED - COLONOSCOPY-EVERY 5 YRS AGES 18-100 Discontinued 12/11/2023, 12/11/2023, 02/17/2018 Influenza Vaccine (FLU shot) Completed 10/11/2024, 08/04/2023, 10/27/2022, Additional history exists Pneumococcal Vaccine: 50+ Years Completed 01/09/2025, 07/25/2013, 07/25/2013 HPV (Gardasil) Vaccine Aged Out No lo nger eligible based on patient's age to complete this topic MENINGOCOCCAL (MENACTRA/MENVEO) Aged Out No longer eligible based on patient's age to complete this topic Meningitis B Vaccine (Bexsero/Trumemba) Aged Out No longer eligible based on patient's age to complete this topic documented as of this encounter Medical Devices Not on filedocumented as of this encounter Visit Diagnoses Diagnosis 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 Question Answer Comments Discussion of Advance Directives occurred with: Patient Does the patient have a Living Will? No Does the patient have Health Care Power of Attor deepak? No * Full Code Date Activated Date Inactivated Comments 04/15/2021 4:52 AM 04/17/2021 8:16 PM This order r eflects the patients wishes and were consensually agreed upon. Question Answer Comments Discussion of Advance Directives occurred with: Patient Does the patient have a Living Will? No Does the patient have Health Care Power of Attor deepak? No * Full Code Date Activated Date Inactivated Comments 03/12/2015 7:35 AM 03/13/2015 6:13 PM This order ref lects the patients wishes and were consensually agreed upon. Question Answer Comments Discussion of Advance Directives occurred with: Not Discussed Does the patient have a Living Will? No Does the patient have Health Care Power of Attor deepak? No * Full Code Date Activated Date Inactivated Comments 03/12/2015 6:07 AM 03/12/2015 7:35 AM This order ref lects the patients wishes and were consensually agreed upon. Care Teams Electronics Tech Relationship Specialty Start Date End Date Krzysztof Gage MD [address] [facility] [place] [address] PCP - General Internal Medicine 06/19/16 documented as of this encounter
--- OUTSIDE RECORDS SUMMARY | 2025-02-20 22:50 | External Medical Summary | Summary of Care ---
Author Name Unknown Organization [facility] Address [address] [place] [address] Phone [phone] Care Team Providers Care Tile Helper Name Role Phone Krzysztof Gage MD Primary Care Provider + Reason for Visit * Reason Comments eRx-Medication Refill Encounter Details Date Type Department Care Team (Late st Contact Info) Description 01/18/2025 Refill General Internal Medicine [facility] [address] [place] [address] Krzysztof Gage MD [address] [place] [address] Current severe episode of major depressive disorder [...] cwp, nocturnal ox 08/21/11 CPAP 5-15 cwp [facility] MEDICATION USE AGREEMENT 12/30/2006 Overview (02/20/2009): 02/06/09: [...] Nocturnal oxygen desaturation 07/25/2013 04/19/2019 [facility] OTHER*[id number] 02/04/2013 07/25/2013 Obesity, morbid (more than 1 00 lbs over ideal weight or BMI > 40) 08/09/2012 07/09/2017 Overview: Per Obesity protocol #1 BMI 70 and over, adult 12/04/201111/28 Obstructive sleep apnea syndrome 09/04/2011 10/02/2011 Genetic Sleep Disorder Resea [facility] Other*[id number] 07/07/2011 05/07/2016 Morbid Obesity, BMI > 40 05/04/201105/2011 Adult body mass index 60.0-69.9 02/02/2011 12/04/2011 Morbid Obesity, BMI > 40 11/20/201010/2010 [facility]*[id number] 07/08/2010 12/18/2015 Overview (12/18/2015): 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 Research*[id number] 03/19/2010 06/26/2010 [facility] OTHER*[id number] 03/19/2010 03/10/2024 Overview (07/25/2013): Completed about 09/2010 [...] (01/01/2010): Per Obesity Taxonomy Heterozygous MTHFR mutation [id number] 07/28/2017 documented as of this encounter (statuses [...] (Prevnar) 07/25/2013 Pneumococcal Conjugate Vacci ne, 20-valent ([id number]) 01/09/2025 Pneumococcal Polysaccharide PPV23 (Pneumovax) 07/25/2013 Seasonal [...] Clinical Pharmacy Services ([facility]PS) 01/19/25 11:33 AM [phone] * Telephone Encounter - Brett Siddiqi RPh [...] BREAKFASTAuthorizing Provider: KRZYSZTOF GAGE User: BRETT SIDDIQI Electronically signed by Brett Siddiqi [facility] at 01/19/2025 10:37 AM EDT documented in this encounter Plan of Treatment Upcoming Encounters Date Type Department Care Team (Late st Contact Info) Description 03/02/2025 7:30 AM EDT Anticoagulation Pharmacy, [facility] [address] [place] [phone] [facility] [address] [place] [address] 07/10/2025 10:40 AM EDT Office Visit Endocrinology [address] [place] [phone] Kylee Cox MD [address] [id number] 08/21/2025 9:20 AM EST Office Visit General Internal Medicine [facility] [address] [place] [address] Krzysztof Gage MD 200 [place] [address] Scheduled Procedures Name Priority Associated Diagnoses Date/Ti [...] and were consensually agreed upon. Care Teams Tile Helper Relationship Specialty Start Date End Date Krzysztof Gage MD 200 [place] [address] PCP - General Internal Medicine 06/19/16 documented as of this encounter
--- OUTSIDE RECORDS SUMMARY | 2025-02-20 22:50 | External Medical Summary | Summary of Care ---
Author Name Unknown Organization [facility] Address [address] [place] [address] Phone [phone] Care Team Providers Care Leather Softener Name Role Phone Krzysztof Pickering MD Primary Care Provider + Reason for Visit * Reason Onset Date Comments Medication Refill 12/26/2024 Encounter Details Date Type Department Care Team (Late st Contact Info) Description 12/26/2024 Refill General Internal Medicine [facility] [address] [facility] [place] [address] Krzysztof Pickering MD [address] [place] [address] Chronic pain syndrome Allergies Active Allergy Reactions Criticality Noted Date Comments Latex 08/16/2010 Takes skin off with the bandaid Bacitracin-Polymyxin B Other (Please comment) 05/22/2021 Redness and film around edge when applied to skin Nylon 12 07/04/2010 Infection suture line Adhesive Tape 05/14/2007 Bandaids has to use Cloth tape. documented as of this encounter (statuses as of 12/29/2024) Medications Folic Acid 5 MG CAPS Take 1 Tab by mouth daily. Active fexofenadine-pse udoephedrine ER 60-120 mg per tab (JACINTO-D) 60-120 MG TB12 Take 1 Tablet by mouth 2 times a day as needed for Allergies. Active Tylenol 325 MG Oral Capsule (Acetaminophen) Take by mouth as needed for Pain. Two tablets Active Vitron-C 65-125 MG Oral Tablet (Iron-Vitamin C) Take one pill by mouth twice a day 60 Tablet 5 08/09/20 22 Active Oxybutynin Chloride ER 5 MG Oral Tablet Extended Release 24 Hour (Ditropan XL)Indications:U rinary incontinence, urge Take 1 Tablet by mouth in the morning. In the morning.. 30 Tablet 02/07/20 23 Active Cyclobenzaprine HCl 5 MG Oral Tablet (Flexeril)Indica tions:Acute pain of left shoulder TAKE ONE TABLET BY MOUTH AT BEDTIME NEEDED FOR MUSCLE SPASMS 30 Tablet 02/06/20 23 Active Ventolin HFA 108 (90 Base) MCG/ACT Inhalation Aerosol SolutionIndicati ons:Wheezing Inhale 2 Puffs by mouth every 4 hours as needed for Wheezing. 18 g 10/21/19 24 Active Spacer/Aero-Hold ing Chambers DeviceIndication s:Wheezing Use with inhaler. 1 Each 10/21/19 24 Active Levothyroxine Sodium 88 MCG Oral Tablet (Levoxyl) TAKE 1 TABLET BY MOUTH EVERY DAY THE FIRST THING IN THE MORNING AT LEAST 30 MIN. PRIOR TO BREAKFAST 90 Tablet 3 01/10/20 24 Active DULoxetine HCl 60 MG Oral Capsule Delayed Release Particles (Cymbalta) TAKE ONE CAPSULE BY MOUTH DAILY 90 Capsule 3 01/10/20 24 Active buPROPion HCl ER (SR) 150 MG Oral Tablet Extended Release 12 Hour (Wellbutrin SR) TAKE 2 TABLETS BY MOUTH EVERY MORNING AND 1 TABLET IN THE AFTERNOON NOT LATER THAN 1PM 270 Tablet 2 01/20/20 24 Active Vitamin D 50 MCG (2000 UT) Oral Capsule Take 2,000 Units by mouth in the morning. Active Calcium Citrate-Vitamin D3 315-6.25 MG-MCG Oral Tablet (Citracal Maximum) Take by mouth. 1 tab twice daily Active Warfarin Sodium 10 MG Oral Tablet (Coumadin)Indica tions:Factor 5 Leiden mutation, heterozygous (HCC),Heterozygo us MTHFR mutation [id number],Acute deep vein thrombosis (DVT) of popliteal vein of left lower extremity (HCC) TAKE 1/2 TO 1 TABLET BY MOUTH EVERY EVENING DIRECTED BY COAG CLIN[facility] 65 Tablet 3 06/07/20 24 Active DULoxetine HCl 30 MG Oral Capsule Delayed Release Particles (Cymbalta)Indica tions: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 Do not cut, crush or chew. 90 Capsule 3 06/07/20 24 Active Omeprazole 20 MG Oral Capsule Delayed Release (PriLOSEC)Indica tions:HTN, goal to be determined TAKE 2 CAPSULES DAILY 180 Capsule 3 09/22/20 24 Active Fluticasone Propionate 50 MCG/ACT Nasal Suspension (Flonase) ADMINISTER 2 SPRAYS INTO EACH NOSTRIL DAILY. 48 mL 1 09/23/20 24 Active Furosemide 20 MG Oral Tablet (Lasix) TAKE 1 TABLET BY MOUTH DAILY FOR FLUID ACCUMULATION OR WEIGHT GAIN. 90 Tablet 1 12/24/19 25 Active oxyCODONE-Acetam inophen 10-325 MG Oral Tablet (Percocet)Indica tions:Chronic pain syndrome Take 1 Tablet by mouth every 6 hours as needed for Pain, Severe. Ongoing therapy 120 Tablet 12/01/19 25 025 Discontin ued(Refil l) documented as of this encounter (statuses as of 12/29/2024) Active Problems Problem Noted Date Diagnosed Date [...] cwp, nocturnal ox 08/21/11 CPAP 5-15 cwp [facility] MEDICATION USE AGREEMENT 12/30/2006 Overview (02/20/2009): 02/06/09: Urine screen negative of oxycodone Spondylolisthesis 08/19/2006 Allergic rhinitis due to pollen 01/24/2004 Heterozygous MTHFR mutation C677T documented as of this encounter (statuses as of 12/29/2024) Resolved Problems Problem Noted Date Diagnosed Date [...] Nocturnal oxygen desaturation 07/25/2013 04/19/2019 [facility] OTHER*[id number] 02/04/2013 07/25/2013 Obesity, morbid (more than 1 00 lbs over ideal weight or BMI > 40) 08/09/2012 07/09/2017 Overview: Per Obesity protocol #1 BMI 70 and over, adult 12/04/201111/28 Obstructive sleep apnea syndrome 09/04/2011 10/02/2011 Genetic Sleep Disorder Resea [facility] Other*[id number] 07/07/2011 05/07/2016 Morbid Obesity, BMI > 40 05/04/201105/2011 Adult body mass index 60.0-69.9 02/02/2011 12/04/2011 Morbid Obesity, BMI > 40 11/20/201010/2010 [facility]*[id number] 07/08/2010 12/18/2015 Overview (12/18/2015): 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 Research*[id number] 03/19/2010 06/26/2010 [facility] OTHER*[id number] 03/19/2010 03/10/2024 Overview (07/25/2013): Completed about 09/2010 [...] (01/01/2010): Per Obesity Taxonomy Heterozygous MTHFR mutation [id number] 07/28/2017 documented as of this encounter (statuses as of 12/29/2024) Immunizations Name Administration Dates Next Due COVID-19 mRNA, LNP-s, No Pre serve, 2-Dose Series (Moderna) 02/16/2021,01/19/2021 COVID-19 mRNA, LNP-s, No Pre serve, 2-Dose Series (Pfizer) 02/08/2021 Diptheria/Tetanus (Adult) 03/24/2017 H1N1 2009 Influenza, IM 11/14/2009 H1N1 2009 Influenza, Intranasal 11/14/2009 Hepatitis B, 20+ yrs 09/08/2023,03/06/2023,11/19 Influenza, Whole Virus 07/13/2019 PPD 06/17/2021 Pneumococcal Conjugate Vacc, 13 Valent (Prevnar) 07/25/2013 Pneumococcal Polysaccharide PPV23 (Pneumovax) 07/25/2013 Seasonal Influenza [...] Answer Date Recorded PHQ Adult Total Score 4 09/08/2023 Hunger Vital Sign Answer Date Recorded Within the past 12 months, y ou worried that your food would run out before you got the money to buy more. Never true 03/10/20 Within the past 12 months, t he [...] 03/10/2024 Does the household have a re gular source of income? (Household - for ages [...] of Assessment Author Yes 06/22/2021 5:50 PM Mary Ellen Perez RN * Do you have difficulty dressing or bathing? (5 years old or older) Answer Date of Assessment Author No 06/22/2021 5:50 PM Mary Ellen Perez RN * Because of a physical, mental, [...] documented in this encounter Miscellaneous Notes * Telephone Encounter - Ludivina Villalba [facility] - 12/27/2024 1:19 PM EDT Pending Prescriptions: Disp Refills oxyCODONE-Acetaminophen 10-325 MG Oral Tab*120 Ta*0 Sig: Take 1 Tablet by mouth every 6 hours as needed for Pain, Severe. Ongoing therapy * Telephone Encounter - Ludivina Villalba [facility] - 12/27/2024 1:18 PM EDT I have reviewed the patient’s controlled substance dispensing history in the Prescription Drug Monitoring Program in compliance with the [facility] regulations before prescribing a controlled substance. PDMP checked on 12/27/2024. Pending Prescriptions: Disp Refills oxyCODONE-Acetaminophen 10-325 MG Oral Ta*120 Ta*0 Sig: Take 1 Tablet by mouth every 6 hours as needed for Pain, Severe. Ongoing therapy Last Visit: 10/11/2024 (in office), Visit date not found (telemedicine) Next Visit: 01/09/2025 Date medication was last filled: 12/01/24 Date medication is due for refill: 12/31/24 Pharmacy: [facility] [id number] [place] [address] Is this request for a controlled substance? Yes and Urine Drug Screen was completed Toxicology results: Results for orders placed or performed in visit on 03/10/24 PAIN MANAGEMENT DRUG PANEL, URINE W/ INTERPRETATION Result Value Pain Management Interpretation Based on the medication information provided: The positive oxycodone screening result is CONSISTENT with oxycodone use. Confirmatory testing is available upon request. The presence of pseudoephedrine could be due to use of OTC medication. Amphetamines Screen, U Refer to confirmation results (A) Benzodiazepines Screen, U Negative Cannabinoids Screen, U Negative Cocaine Metabolite Screen, U Negative Fentanyl Screen, U Negative Hydrocodone Screen, U Negative Methadone Metabolite Screen, U Negative Morphine/Codeine Screen, U Negative Oxycodone Screen, U Positive (A) Specimen Validity Interpretation Normal Creatinine, U 237 Narrative Cutoff Concentrations: Drug Level Amphetamines 500 ng/mL Benzodiazepines 100 ng/mL Cannabinoids 50 ng/mL Cocaine Metabolite 150 ng/mL Fentanyl 1 ng/mL Hydrocodone / Hydromorphone 300 ng/mL Methadone Metabolite 100 ng/mL Morphine / Codeine 300 ng/mL Oxycodone / Oxymorphone 100 ng/mL Screening results are presumptive and can only be used for medical purposes. Confirmatory testing is available upon request. *Note: Due to a large number of results and/or encounters for the requested time period, some results have not been displayed. A complete set of results can be found in Results Review. Please approve if appropriate. Thank you, Joanna GibsonD, JESSICA Clinical Pharmacist Centralized Clinical Pharmacy Services ([facility]) 12/27/24 1:19 PM [phone] documented in this encounter Plan of Treatment Upcoming Encounters Date Type Department Care Team (Late st Contact Info) Description 12/30/2024 9:00 AM EDT Office Visit Podiatry [facility] [address] [place] [address] Rachel Martinez DPM [address] [facility] [place] [address] 01/09/2025 10:20 AM EDT Office Visit General Internal Medicine [facility] [address] [place] [address] Krzysztof Pickering MD 200 [facility] [place] [address] 01/13/2025 7:15 AM EDT Imaging Radiology [facility] 1st [facility] [place] [address] [place] [address] 01/19/2025 7:30 AM EDT [address]ticoagulation Pharmacy, [address] [place] [phone] [facility] [address] [facility] [place] [address] 07/10/2025 10:40 AM EDT Office Visit Endocrinology [address] [place], [place] [address] Kylee Cox MD [address] [place] [address] Scheduled Procedures Name Priority Associated Diagnoses Date/Ti me COLONOSCOPY FLEXIBLE PROXIMA L DIAGNOSTIC Recall History of colonic polyps Health Maintenance Due Date Last Done Comments Cologuard 01/06/2013 Fecal Occult Blood Test 01/06/2013 Sigmoidoscopy 01/06/2013 Pneumococcal Vaccine: 50+ Years (3 of 3 - PCV20 or PCV21) 07/25/2018 07/25/2013, 07/25/2013 COVID-19 Vaccine ( season) 2024 02/16/2021, 02/08/2021, 01/19/2021 Depression Monitoring 09/08/2024 09/08/2023 Mammogram 01/11/2025 01/12/2024, 0 06/2024, 12/29/2022, Additional history exists Albumin/Creatinine Ratio 04/11/2025 04/11/2022, 04/04 Pap Smear 09/03/2025 09/03/2022, 0 11/2018, 11/04/2016, Additional history exists GFR 11/23/2025 11/23/2024, 03/05, 03/10/2024, Additional history exists TSH 11/23/2025 11/23/2024, 03/05, 11/04/2023, Additional history exists Colonoscopy 12/10/2026 12/11/2023, 05/2024, 02/17/2018 Colorectal Cancer Screening 12/10/2026 DTap/Tdap [...] Completed 10/11/2024, 08/04/2023, 10/27/2022, Additional history exists HPV (Gardasil) Vaccine Aged Out No lo [...] as of this encounter Visit Diagnoses Diagnosis Chronic pain syndrome documented in this encounter Advance Directives * [...] and were consensually agreed upon. Care Teams Leather Softener Relationship Specialty Start Date End Date Krzysztof Pickering MD 200 [place] [address] PCP - General Internal Medicine 06/19/16 documented as of this encounter
--- OUTSIDE RECORDS SUMMARY | 2025-02-20 22:50 | External Medical Summary | Summary of Care ---
Author Name Unknown Organization [facility] Address [address] [place] [address] Phone [phone] Care Team Providers Care Metal Fabricating Supervisor Name Role Phone Krzysztof Gage MD Primary Care Provider + Reason for Referral * Medication Prior Authorization - Closed Specialty Diagnoses / Procedures Referred By Yosvany potter Referred To Contact Diagnoses Chronic pain syndrome Krzysztof Gage MD [address] [place] [address] [place] [address] Phone: tel: fax: Referral ID Status Reason Start Date Expiration Date Visits Re quested Visits Authorized [id number] Closed [phone] Reason for Visit * Reason Onset Date Comments Medication Refill 12/28/2024 Encounter Details Date Type Department Care Team (Late st Contact Info) Description 12/28/2024 [facility] [place] [address] [facility] [address] [place] [address] Krzysztof Gage MD 200 [facility] [place], [place] [address] Chronic pain syndrome Allergies Active Allergy Reactions [...] for Pain, Severe. Ongoing therapy 120 Tablet 12/30/19 25 Active oxyCODONE-Acetam inophen 10-325 MG Oral [...] Nocturnal oxygen desaturation 07/25/2013 04/19/2019 [facility] OTHER*[id number] 02/04/2013 07/25/2013 Obesity, morbid (more than 1 00 lbs over ideal weight or BMI > 40) 08/09/2012 07/09/2017 Overview: Per Obesity protocol #1 BMI 70 and over, adult 12/04/201111/28 Obstructive sleep apnea syndrome 09/04/2011 10/02/2011 Genetic Sleep Disorder Resea [facility] Other*[id number] 07/07/2011 05/07/2016 Morbid Obesity, BMI > 40 05/04/201105/2011 Adult body mass index 60.0-69.9 02/02/2011 12/04/2011 Morbid Obesity, BMI > 40 11/20/201010/2010 [employer]*[id number] 07/08/2010 12/18/2015 Overview (12/18/2015): 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 Research*[id number] 03/19/2010 06/26/2010 [facility] OTHER*[id number] 03/19/2010 03/10/2024 Overview (07/25/2013): Completed about 09/2010 [...] (01/01/2010): Per Obesity Taxonomy Heterozygous MTHFR mutation [id number] 07/28/2017 documented as of this encounter (statuses [...] encounter Miscellaneous Notes * Telephone Encounter - Krzysztof Gage MD - 12/29/2024 12:43 PM EDT Signed Prescriptions: Disp Refills oxyCODONE-Acetaminophen 10-325 MG Oral Tab*120 Ta*0 Sig: Take 1 Tablet by mouth every 6 hours as needed for Pain, Severe. Ongoing therapy Authorizing Provider: KRZYSZTOF GAGE * Telephone Encounter - Joel Preciado [facility] - 12/29/2024 12:25 PM EDT Pending Prescriptions: Disp Refills oxyCODONE-Acetaminophen 10-325 MG Oral Tab*120 Ta*0 Sig: Take 1 Tablet by mouth every 6 hours as needed for Pain, Severe. Ongoing therapy * Telephone Encounter - Joel Preciado [facility] - 12/29/2024 12:24 PM EDT I have reviewed the patient’s controlled substance dispensing history in the Prescription Drug Monitoring Program in compliance with the [facility] regulations before prescribing a controlled substance. PDMP checked on 12/29/2024. Pending Prescriptions: Disp Refills oxyCODONE-Acetaminophen 10-325 MG Oral Ta*120 Ta*0 Sig: Take 1 Tablet by mouth every 6 hours as needed for Pain, Severe. Ongoing therapy Last Visit: 10/11/2024 (in office), Visit date not found (telemedicine) Next Visit: 01/09/2025 Date medication was last filled: 12/01/24 Date medication is due for refill: 12/29/24 Pharmacy: [facility] [id number] [place] [address] Is this request for a controlled [...] in Results Review. Please approve if appropriate. Thanks, Joel Preciado, PharmD Clinical Pharmacist Centralized Clinical Pharmacy Services ([facility]PS) [phone] 12/29/2024, 12:24 PM documented in this encounter Plan of Treatment Upcoming Encounters Date Type Department Care Team (Late st Contact Info) Description 12/30/2024 9:00 AM EDT Office Visit Podiatry [facility] [address] [place] [phone] Rachel Martinez DPM [address] [place] [address] 01/09/2025 10:20 AM EDT Office Visit General Internal Medicine [facility] [address] [place] [address] Krzysztof Gage MD 200 [facility] [place] [address] 01/13/2025 7:15 AM EDT Imaging Radiology [facility]st [facility] [address] [place] [phone] 01/19/2025 7:30 AM EDT [facility] [address] [facility] [place] [phone] [facility] [address] [place] [address] 07/10/2025 10:40 AM EDT Office Visit Endocrinology [address] [place], [place] [address] Kylee Cox MD [address], [place] [address] Scheduled Procedures Name Priority Associated Diagnoses Date/Ti me COLONOSCOPY FLEXIBLE PROXIMA L DIAGNOSTIC Recall History of colonic polyps Health Maintenance Due Date Last Done Comments Cologuard 01/06/2013 Fecal Occult Blood Test 01/06/2013 Sigmoidoscopy 01/06/2013 Pneumococcal Vaccine: 50+ Years (3 of 3 - PCV20 or PCV21) 07/25/2018 07/25/2013, 07/25/2013 COVID-19 Vaccine ( - season) 2024 02/16/2021, 02/08/2021, 01/19/2021 Depression Monitoring 09/08/2024 09/08/2023 Mammogram 01/11/2025 01/12/2024, 040 06/2024, 12/29/2022, Additional history exists Albumin/Creatinine Ratio 04/11/2025 04/11/2022, 04/04 Pap Smear 09/03/2025 09/03/2022, 04/0 11/2018, 11/04/2016, Additional history exists GFR 11/23/2025 11/23/2024, 03/05, 03/10/2024, Additional history exists TSH 11/23/2025 11/23/2024, 03/05, 11/04/2023, Additional history exists Colonoscopy 12/10/2026 12/11/2023, 030 [...] and were consensually agreed upon. Care Teams Metal Fabricating Supervisor Relationship Specialty Start Date End Date Krzysztof Gage MD 200 [place] [address] PCP - General Internal Medicine 06/19/16 documented as of this encounter
--- OUTSIDE RECORDS SUMMARY | 2025-02-20 22:50 | External Medical Summary | Summary of Care ---
Author Name Unknown Organization [facility] Address [address] [place] [address] Phone [phone] Care Team Providers Care Customer Services Manager Name Role Phone Krzysztof Gage MD Primary Care Provider + Reason for Visit * Reason Onset Date Comments Medication Refill 01/25/2025 Encounter Details Date Type Department Care Team (Late st Contact Info) Description 01/25/2025 Refill General Internal Medicine [facility] [address] [facility] [place] [address] Krzysztof Gage MD [address] [place] [address] Chronic pain syndrome Allergies Active Allergy Reactions Criticality Noted Date Comments Latex 08/16/2010 Takes skin off with the bandaid Bacitracin-Polymyxin B Other (Please comment) 05/22/2021 Redness and film around edge when applied to skin Nylon 12 07/04/2010 Infection suture line Adhesive Tape 05/14/2007 Bandaids has to use Cloth tape. documented as of this encounter (statuses as of 01/27/2025) Medications Folic Acid 5 MG CAPS Take [...] with inhaler. 1 Each 10/21/19 24 Active Vitamin D 50 MCG (2000 UT) Oral Capsule Take 1 Capsule by mouth in the morning. Active Calcium Citrate-Vitamin D3 315-6.25 MG-MCG Oral Tablet (Citracal Maximum) Take by mouth. 1 tab twice daily Active buPROPion HCl ER (SR) 150 MG Oral Tablet Extended Release 12 Hour (Wellbutrin SR) TAKE 2 TABLETS BY MOUTH EVERY MORNING AND 1 TABLET IN THE AFTERNOON NOT LATER THAN 1PM 270 Tablet 3 01/20/20 25 Active DULoxetine HCl 30 MG Oral Capsule Delayed Release Particles (Cymbalta)Indica tions: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 Do not cut, crush or chew. 90 Capsule 3 01/20/20 25 Active DULoxetine HCl 60 MG Oral Capsule Delayed Release Particles (Cymbalta) Take 1 Capsule by mouth in the morning. 90 Capsule 3 01/20/20 25 Active Fluticasone Propionate 50 MCG/ACT Nasal Suspension (Flonase) ADMINISTER 2 SPRAYS INTO EACH NOSTRIL DAILY. 48 mL 01/20/20 25 Active Furosemide 20 MG Oral Tablet (Lasix) TAKE 1 TABLET BY MOUTH DAILY FOR FLUID ACCUMULATION OR WEIGHT GAIN. 90 Tablet 01/20/20 25 Active Levothyroxine Sodium 88 MCG Oral Tablet (Levoxyl) TAKE 1 TABLET BY MOUTH EVERY DAY THE FIRST THING IN THE MORNING AT LEAST 30 MIN. PRIOR TO BREAKFAST 90 Tablet 3 01/20/20 25 Active Omeprazole 20 MG Oral Capsule Delayed Release (PriLOSEC)Indica tions:HTN, goal to be determined Take 2 Capsules by mouth in the morning. 180 Capsule 2 01/20/20 25 Active Warfarin Sodium 10 MG Oral Tablet (Coumadin)Indica tions:Factor 5 Leiden mutation, heterozygous (HCC),Heterozygo us MTHFR mutation C677T,Acute deep vein thrombosis (DVT) of popliteal vein of left lower extremity (HCC) TAKE 1/2 TO 1 TABLET BY MOUTH EVERY EVENING DIRECTED BY [facility] CLIN[facility] 90 Tablet 3 01/20/20 25 Active oxyCODONE-Acetam inophen 10-325 MG Oral Tablet (Percocet)Indica tions:Chronic pain syndrome Take 1 Tablet by mouth every 6 hours as needed for Pain, Severe. Ongoing therapy 120 Tablet 01/28/20 25 Active oxyCODONE-Acetam inophen 10-325 MG Oral Tablet (Percocet)Indica tions:Chronic pain syndrome Take 1 Tablet by mouth every 6 hours as needed for Pain, Severe. Ongoing therapy 120 Tablet 12/30/19 25 025 Discontin ued(Refil l) documented as of this encounter (statuses as of 01/27/2025) Active Problems Problem Noted Date Diagnosed Date [...] cwp, nocturnal ox 08/21/11 CPAP 5-15 cwp [facility] 12/30/2006 Overview (02/20/2009): 02/06/09: Urine screen negative of oxycodone Spondylolisthesis 08/19/2006 Allergic rhinitis due to pollen 01/24/2004 Heterozygous MTHFR mutation C677T documented as of this encounter (statuses as of 01/27/2025) Resolved Problems Problem Noted Date Diagnosed Date [...] Nocturnal oxygen desaturation 07/25/2013 04/19/2019 [facility] OTHER*[id number] 02/04/2013 07/25/2013 Obesity, morbid (more than 1 00 lbs over ideal weight or BMI > 40) 08/09/2012 07/09/2017 Overview: Per Obesity protocol #1 BMI 70 and over, adult 12/04/201111/28 Obstructive sleep apnea syndrome 09/04/2011 10/02/2011 Genetic Sleep Disorder [facility] Other*[id number] 07/07/2011 05/07/2016 Morbid Obesity, BMI > 40 05/04/201105/2011 Adult body mass index 60.0-69.9 02/02/2011 12/04/2011 Morbid Obesity, BMI > 40 11/20/201010/2010 [facility] Research*[id number] 07/08/2010 12/18/2015 Overview (12/18/2015): 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 Research*[id number] 03/19/2010 06/26/2010 [facility] OTHER*[id number] 03/19/2010 03/10/2024 Overview (07/25/2013): Completed about 09/2010 [...] (01/01/2010): Per Obesity Taxonomy Heterozygous MTHFR mutation [id number] 07/28/2017 documented as of this encounter (statuses as of 01/27/2025) Immunizations Name Administration Dates Next Due COVID-19 mRNA, LNP-s, No Pre serve, 2-Dose Series (Moderna) 02/16/2021,01/19/2021 COVID-19 mRNA, LNP-s, No Pre serve, 2-Dose Series (Pfizer) 02/08/2021 Diptheria/Tetanus (Adult) 03/24/2017 H1N1 2009 Influenza, IM 11/14/2009 H1N1 2009 Influenza, Intranasal 11/14/2009 Hepatitis B, 20+ yrs 09/08/2023,03/06/2023,11/19 Influenza, Whole Virus 07/13/2019 PPD 06/17/2021 Pneumococcal Conjugate Vacc, 13 Valent (Prevnar) 07/25/2013 Pneumococcal Conjugate Vacci ne, 20-valent ([id number]) 01/09/2025 Pneumococcal Polysaccharide PPV23 (Pneumovax) 07/25/2013 Seasonal [...] of Assessment Author No 06/22/2021 5:50 PM OCTAVIAT Mary Ellen Cardoza RN * Do you [...] Telephone Encounter - Krzysztof Gage MD - 01/27/2025 9:38 AM EDTSigned Prescriptions: Disp Refills oxyCODONE-Acetaminophen 10-325 MG Oral Tab*120 Ta*0 Sig: Take 1 Tablet by mouth every 6 hours as needed for Pain, Severe. Ongoing therapy Authorizing Provider: KRZYSZTOF GAGE * Telephone Encounter - Robel Dobson [facility] - 01/26/2025 12:31 PM EDT Pending Prescriptions: Disp Refills oxyCODONE-Acetaminophen 10-325 MG Oral Tab*120 Ta*0 Sig: Take 1 Tablet by mouth every 6 hours as needed for Pain, Severe. Ongoing therapy * Telephone Encounter - Robel Dobson, [facility] - 01/26/2025 12:30 PM EDT I have reviewed the patient’s controlled substance dispensing history in the Prescription Drug Monitoring Program in compliance with the [facility] regulations before prescribing a controlled substance. PDMP checked on 01/26/2025. Pending Prescriptions: Disp Refills oxyCODONE-Acetaminophen 10-325 MG Oral Ta*120 Ta*0 Sig: Take 1 Tablet by mouth every 6 hours as needed for Pain, Severe. Ongoing therapy Last Visit: 01/09/2025 (in office), Visit date not found (telemedicine) Next Visit: 08/21/2025 Date medication was last filled: 12/29/24 Date medication is due for refill: 01/27/25 Pharmacy: [facility] [id number] [place] [address] Is this request for a controlled [...] Results Review. Please approve if appropriate. Thank you Jama Dobson, PharmD Clinical Pharmacist [facility] ([facility]) PH:[phone] 01/26/2025, 12:30 PM documented in this encounter Plan of Treatment Upcoming Encounters Date Type Department Care Team (Late st Contact Info) Description 03/02/2025 7:30 AM EDT Anticoagulation Pharmacy, [address] [facility] [place] [phone] [facility] [address] [place] [facility] [address] 07/10/2025 10:40 AM EDT Office Visit Endocrinology [address], [place] [address] Kylee Cox MD [address] [place] [address] 08/21/2025 9:20 AM EST Office Visit General Internal Medicine [facility] [address] [facility] [place] [address] Krzysztof Gage MD [address] [facility] [place] [address] Scheduled Procedures Name Priority Associated Diagnoses Date/Ti [...] Depression Monitoring 01/09/2026 01/09/2025 Mammogram 01/13/2026 01/13/2025, 01/03, 01/12/2024, Additional history exists Colonoscopy 12/10/2026 12/11/2023, 05/2024, [...] and were consensually agreed upon. Care Teams Customer Services Manager Relationship Specialty Start Date End Date Krzysztof Gage MD [address] [place] [address] PCP - General Internal Medicine 06/19/16 documented as of this encounter
--- OUTSIDE RECORDS SUMMARY | 2025-02-20 22:50 | External Medical Summary | Summary of Care ---
Author Name Unknown Organization [facility] Address [address] [place] [address] Phone [phone] Care Team Providers Care Monitor Technician Name Role Phone Krzysztof Pickering MD Primary Care Provider + Reason for Visit * Reason Comments Dosage Adjustment In Person (Anticoag Cl inic) Encounter Details Date Type Department Care Team (Latest Contact Info) Description 01/19/2025 7:30 AM EDT Anticoagulation Pharmacy, [facility] [address] [place] [address] [facility] [address] [place] [address] Anticoagulation management encounter*; Factor 5 Leiden mutation, heterozygous (HCC); Heterozygous MTHFR mutation C677T Allergies Active Allergy Reactions Criticality Noted Date [...] mouth twice a day 60 Tablet 5 2 Active Oxybutynin Chloride ER 5 MG Oral Tablet Extended Release 24 Hour (Ditropan XL)Indications:U rinary incontinence, urge Take 1 Tablet by mouth in the morning. In the morning.. 30 Tablet 3 Active Cyclobenzaprine HCl 5 MG Oral Tablet (Flexeril)Indica tions:Acute pain of left shoulder TAKE ONE TABLET BY MOUTH AT BEDTIME NEEDED FOR MUSCLE SPASMS 30 Tablet 3 Active Ventolin HFA 108 (90 Base) MCG/ACT Inhalation Aerosol SolutionIndicati ons:Wheezing Inhale 2 Puffs by mouth every 4 hours as needed for Wheezing. 18 g 4 Active Spacer/Aero-Hold ing Chambers DeviceIndication s:Wheezing Use with inhaler. 1 Each 4 Active Levothyroxine Sodium 88 MCG Oral Tablet (Levoxyl) TAKE 1 TABLET BY MOUTH EVERY DAY THE FIRST THING IN THE MORNING AT LEAST 30 MIN. PRIOR TO BREAKFAST 90 Tablet 3 4 Active DULoxetine HCl 60 MG Oral Capsule Delayed Release Particles (Cymbalta) TAKE ONE CAPSULE BY MOUTH DAILY 90 Capsule 3 4 Active buPROPion HCl ER (SR) 150 MG Oral Tablet Extended Release 12 Hour (Wellbutrin SR) TAKE 2 TABLETS BY MOUTH EVERY MORNING AND 1 TABLET IN THE AFTERNOON NOT LATER THAN 1PM 270 Tablet 2 4 Active Vitamin D 50 MCG (2000 UT) [...] DIRECTED BY [facility] CLINIC 65 Tablet 3 4 Active DULoxetine HCl 30 MG Oral Capsule Delayed Release Particles (Cymbalta)Indica tions: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 Do not cut, crush or chew. 90 Capsule 3 4 Active Omeprazole 20 MG Oral Capsule Delayed Release (PriLOSEC)Indica tions:HTN, goal to be determined TAKE 2 CAPSULES DAILY 180 Capsule 3 4 Active Fluticasone Propionate 50 MCG/ACT Nasal Suspension (Flonase) ADMINISTER 2 SPRAYS INTO EACH NOSTRIL DAILY. 48 mL 1 4 Active Furosemide 20 MG Oral Tablet (Lasix) TAKE 1 TABLET BY MOUTH DAILY FOR FLUID ACCUMULATION OR WEIGHT GAIN. 90 Tablet 1 5 Active oxyCODONE-Acetam inophen 10-325 MG Oral Tablet (Percocet)Indica tions:Chronic pain syndrome Take 1 Tablet by mouth every 6 hours as needed for Pain, Severe. Ongoing therapy 120 Tablet 5 Active documented as of this encounter (statuses as [...] cwp, nocturnal ox 08/21/11 CPAP 5-15 cwp [facility] MEDICATION USE AGREEMENT 12/30/2006 Overview (02/20/2009): [...] Nocturnal oxygen desaturation 07/25/2013 04/19/2019 [facility] OTHER*[id number] 02/04/2013 07/25/2013 Obesity, morbid (more than 1 00 lbs over ideal weight or BMI > 40) 08/09/2012 07/09/2017 Overview: Per Obesity protocol #1 BMI 70 and over, adult 12/04/201111/28 Obstructive sleep apnea syndrome 09/04/2011 10/02/2011 Genetic Sleep Disorder [facility] Other*[id number] 07/07/2011 05/07/2016 Morbid Obesity, BMI > 40 05/04/201105/2011 Adult body mass index 60.0-69.9 02/02/2011 12/04/2011 Morbid Obesity, BMI > 40 11/20/201010/2010 [facility] Research*[id number] 07/08/2010 12/18/2015 Overview (12/18/2015): 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 Research*[id number] 03/19/2010 06/26/2010 [facility] OTHER*[id number] 03/19/2010 03/10/2024 Overview (07/25/2013): Completed about 09/2010 [...] (01/01/2010): Per Obesity Taxonomy Heterozygous MTHFR mutation D8680P 07/28/2017 documented as of this encounter (statuses [...] (Prevnar) 07/25/2013 Pneumococcal Conjugate Vacci ne, 20-valent ([id number]) 01/09/2025 Pneumococcal Polysaccharide PPV23 (Pneumovax) 07/25/2013 Seasonal [...] No 06/22/2021 5:50 PM EDT Mary Ellen Leon RN * Do you have serious difficulty [...] Ellen Cardoza RN documented in this encounter Progress Notes * CrisostomoLuismanfred, [facility] - 01/19/2025 9:03 AM EDT Medication Therapy Disease Management - Anticoagulation Patient: Amaya Monteiro | : 1970 Subjective Contacts Contact Date/Time Type Contact Phone/Fax 01/12/2025 08:08 AM EDT Text Message (Outgoing) [phone] [facility]: Amaya, you have an upcoming visit on 01/19 at 7:30 AM. Details: [email or web address] Reply 13 to confirm or 33 to cancel. Reply STOP to opt out. 01/16/2025 08:13 AM EDT Text Message (Outgoing) [phone] [facility]: Amaya, you have an upcoming visit on 01/19 at 7:30 AM. Details: [email or web address] Reply 1 to confirm or 3 to cancel. Reply STOP to opt out. 01/18/2025 08:08 AM EDT Text Message (Outgoing) [phone] [facility]: Amaya, you have an upcoming visit on 01/19 at 7:30 AM. Details: [email or web address] Reply 1 to confirm or 3 to cancel. Reply STOP to opt out. 01/19/2025 05:30 AM EDT Email SMS () [phone] Patient not accepting updates Patient-Reported Symptoms: Patient Findings Negatives: Signs/symptoms of thrombosis, Signs/symptoms of bleeding, Change in health, Change in alcohol use, Change in activity, Upcoming invasive procedure, Missed doses, Extra doses, Change in medications, Change in diet/appetite, Bruising Objective Current Warfarin Dose As of 01/19/2025 Warfarin maintenance plan: 10 mg (10 mg x 1) every Sun, Tue, Molly; 5 mg (10 mg x 0.5) all other days INR Result As of 01/19/2025 INR goal: 2.0-3.0 INR used for dosin.6 (01/19/2025) Assessment & Plan Warfarin Plan As of 01/19/2025 Full warfarin instructions: 10 mg every Sun, Tue, Molly; 5 mg all other days No change documented: Caridad Crisostomo RPh Next INR check: 03/02/2025 Repeat PT/INR in 6 week(s) Weekly dose: not changed Additional Dosing Information: I spent a total of 10-19 minutes (exact time 12 mins) on the date of service in preparation, delivery, and documentation of the care provided to Amaya Monteiro excluding any time spent in the performance of separately billed services or time spent by another provider/QHP. Joanna ArreguinD, [facility] PGY1 [employer] Intern Medication Therapy Management [facility] [place] 01/19/2025 9:03 AM documented in this encounter Plan of Treatment Upcoming Encounters Date Type Department Care Team (Late st Contact Info) Description 03/02/2025 7:30 AM EDT Anticoagulation Pharmacy, [facility] [address] [place] [phone] [facility] [address] [place] [address] 07/10/2025 10:40 AM EDT Office Visit Endocrinology [address], [place] [address] Kylee Cox MD [address] [place] [address] 08/21/2025 9:20 AM EST Office Visit General Internal Medicine [address] [place] [address] [facility] [place] [address] Krzysztof Pickering MD [address] [facility] [place] [address] Scheduled Procedures Name Priority Associated Diagnoses Date/Ti [...] Depression Monitoring 01/09/2026 01/09/2025 Mammogram 01/13/2026 01/13/2025, 04/0 06/2024, 01/12/2024, Additional history exists Colonoscopy 12/10/2026 12/11/2023, 03/0 05/2024, 02/17/2018 Colorectal Cancer Screening 12/10/2026 DTap/Tdap [...] Not on filedocumented as of this encounter Procedures Procedure Name Priority Date/Time Associated Diagnosis Comments INR FINGERSTICK, POINT OF CARE STAT 01/19/2025 7:34 AM EDT Factor 5 Leiden mutation, heterozygous (HCC) Heterozygous MTHFR mutation C677T Anticoagulation management encounter documented in this encounter Results * INR FINGERSTICK, POINT OF CARE (01/19/2025 7:34 AM EDT) Fingerstick INR 2.6 INR 7:40 AM EDT [facility] Blood 01/19/2025 7:34 AM EDT 01/19/2025 7:40 AM EDT Narrative [facility] - 01/19/2025 7:40 AM EDT Therapeutic ranges for non-operative patients: Prophylaxsis/treatment of DVT: (Range:2.0-3.0) Treatment of pulmonary embolism:(Range:2.0-3.0) Prevention of systemic embolism from: -tissue heart valves -acute myocardial infarction -valvular heart disease -atrial fibrillation (Range: 2.0-3.0) Mechanical prosthetic valves: (Range: 2.5-3.5) us Latasha Cuellar h LAB POINT OF CARE TEST DOCKED DEVICE UNSOLICITED RESULTS Final Result [facility] [address] [place] [address], [facility] documented in this encounter Visit Diagnoses Diagnosis Anticoagulation management encounter- Primary Encounter for therapeutic drug monitoring Factor 5 Leiden mutation, heterozygous (HCC) Primary hypercoagulable state 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 Care Teams Monitor Technician Relationship Specialty Start Date End Date Krzysztof Pickering MD [address] [place] [address] PCP - General Internal Medicine 06/19/16 documented as of this encounter"
--- OUTSIDE RECORDS SUMMARY | 2025-02-20 22:50 | External Medical Summary | Summary of Care ---
Author Name Unknown Organization [facility] Address [address] [place] [address] Phone [phone] Care Team Providers Care Harness Brusher Name Role Phone Krzysztof Pickering MD Primary Care Provider + Reason for Visit * Reason Comments eRx-Medication Refill Encounter Details Date Type Department Care Team (Late st Contact Info) Description 12/23/2024 Refill General Internal Medicine [facility] [address] [place] [address] Krzysztof Pickering MD [address] [place] [address] Allergies Active Allergy Reactions Criticality Noted Date Comments Latex 08/16/2010 Takes skin off with the bandaid Bacitracin-Polymyxin B Other (Please comment) 05/22/2021 Redness and film around edge when applied to skin Nylon 12 07/04/2010 Infection suture line Adhesive Tape 05/14/2007 Bandaids has to use Cloth tape. documented as of this encounter (statuses as of 12/23/2024) Medications Folic Acid 5 MG CAPS Take [...] for Wheezing. 18 g 10/21/19 24 Active Spacer/Aero-Hol ding Chambers DeviceIndicatio ns:Wheezing Use with inhaler. 1 Each 10/21/19 24 [...] DAILY. 48 mL 1 09/23/20 24 Active oxyCODONE-Aceta minophen 10-325 MG Oral Tablet (Percocet)Indic ations:Chronic pain syndrome Take 1 Tablet by mouth every 6 hours as needed for Pain, Severe. Ongoing therapy 120 Tablet 12/01/19 25 Active Furosemide 20 MG Oral Tablet (Lasix) TAKE 1 TABLET BY MOUTH DAILY FOR FLUID ACCUMULATION OR WEIGHT GAIN. 90 Tablet 1 12/24/19 25 Active Furosemide 20 MG Oral Tablet (Lasix) TAKE 1 TABLET BY MOUTH DAILY FOR FLUID ACCUMULATION OR WEIGHT GAIN. 90 Tablet 1 05/11/20 24 2024 Discontinued documented as of this encounter (statuses as of 12/23/2024) Active Problems Problem Noted Date Diagnosed Date [...] cwp, nocturnal ox 08/21/11 CPAP 5-15 cwp [facility] MEDICATION USE AGREEMENT 12/30/2006 Overview (02/20/2009): 02/06/09: Urine screen negative of oxycodone Spondylolisthesis 08/19/2006 Allergic rhinitis due to pollen 01/24/2004 Heterozygous MTHFR mutation C677T documented as of this encounter (statuses as of 12/23/2024) Resolved Problems Problem Noted Date Diagnosed Date [...] Nocturnal oxygen desaturation 07/25/2013 04/19/2019 [facility] OTHER*[id number] 02/04/2013 07/25/2013 Obesity, morbid (more than 1 00 lbs over ideal weight or BMI > 40) 08/09/2012 07/09/2017 Overview: Per Obesity protocol #1 BMI 70 and over, adult 12/04/201111/28 Obstructive sleep apnea syndrome 09/04/2011 10/02/2011 Genetic Sleep Disorder [facility] Other*[id number] 07/07/2011 05/07/2016 Morbid Obesity, BMI > 40 05/04/201105/2011 Adult body mass index 60.0-69.9 02/02/2011 12/04/2011 Morbid Obesity, BMI > 40 11/20/201010/2010 [facility] Research*[id number] 07/08/2010 12/18/2015 Overview (12/18/2015): 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 Research*[id number] 03/19/2010 06/26/2010 [facility] OTHER*[id number] 03/19/2010 03/10/2024 Overview (07/25/2013): Completed about 09/2010 [...] (01/01/2010): Per Obesity Taxonomy Heterozygous MTHFR mutation C8272D 07/28/2017 documented as of this encounter (statuses as of 12/23/2024) Immunizations Name Administration Dates Next Due COVID-19 [...] encounter Miscellaneous Notes * Telephone Encounter - Nesha Mora [facility] - 12/23/2024 3:58 PM EDTSigned Prescriptions: Disp Refills Furosemide 20 MG Oral Tablet (Lasix) 90 Tab*1 Sig: TAKE 1 TABLETBY MOUTH DAILY FOR FLUID ACCUMULATION OR WEIGHT GAIN.Authorizing Provider: KRZYSZTOF PICKERING User: NESHA MORA documented in this encounter Plan of Treatment Upcoming Encounters Date Type Department Care Team (Late st Contact Info) Description 12/30/2024 9:00 AM EDT Office Visit Podiatry [facility] [address] [place] [address] Rachel Martinez DPM [address] [place] [address] [place] [address] 01/09/2025 10:20 AM EDT Office Visit General Internal Medicine [facility] Gu[facility]man [place] [address] [place] [address] Krzysztof Pickering MD [address] [facility] [place] [address] 01/13/2025 7:15 AM EDT Imaging Radiology [address] [place] [address] 01/19/2025 7:30 AM EDT Anticoagulation Pharmacy, [address] [place] [address] [facility] [address] [facility] [place] [address] Scheduled Procedures Name Priority Associated Diagnoses Date/Ti [...] Not on filedocumented as of this encounter Advance Directives * Full Code [...] and were consensually agreed upon. Care Teams Harness Brusher Relationship Specialty Start Date End Date Krzysztof Pickering MD [address] [place] [address] PCP - General Internal Medicine 06/19/16 documented as of this encounter
--- OUTSIDE RECORDS SUMMARY | 2025-02-20 22:50 | External Medical Summary ---
Author Name Unknown Address Unknown Organization : Laboratory Report Ordering Provider Test Date Status AI DAVIDSONChase 01/19/2025 07:34:43 Final Therapeutic ranges for non-o perative patients:
Prophylaxsis/treatment of DVT: (Range:2.0-3.0)
Treatment of pulmonary embolism:(Range:2.0-3.0)
Prevention of systemic embolism from:
-tissue heart valves
-acute myocardial infarction
-valvular heart disease
-atrial fibrillation
(Range: 2.0-3.0)
Mechanical prosthetic valves: (Range: 2.5-3.5) Observation Date Value Abnormality Reference (Units ) Status INR in Capillary blood by Coagulation assay 01/19/2025 07:34:43 2.6 (INR) Final Performing Location
--- OUTSIDE RECORDS SUMMARY | 2025-02-20 22:50 | External Medical Summary | Summary of Care ---
Author Name Unknown Organization [facility] Address [address] [place] [address] Phone [phone] Care Team Providers Care Cross Country Coach Name Role Phone Krzysztof Pickering MD Primary Care Provider + Reason for Referral * Precert (Diagnostic Medical) (Within 10 days (routine)) - Authorized Specialty Diagnoses / Procedures Referred By Contac t Referred To Contact Sleep Disorders Diagnoses Obstructive sleep apnea Hypersomnolence Morbid obesity (HCC) HTN, goal below 140/90 Procedures SLEEP STUDY, W/ CPAP (TREATMENT SETTINGS) Palmira Herman DO [address] [place] [address] Phone: tel: fax: Referral ID Status Reason Start Date Expiration Date V isits Requested Visits Authorized [id number] Authorized 01/18/2025 999 999 * Precert (Diagnostic Medical) (Within 10 days (routine)) - Authorized Specialty Diagnoses / Procedures Referred By Contac t Referred To Contact Sleep Disorders Diagnoses Obstructive sleep apnea Hypersomnolence Morbid obesity (HCC) HTN, goal below 140/90 Procedures SLEEP STUDY, W/O CPAP Palmira Herman DO [address] [place] [address] Phone: tel: fax: Referral ID Status Reason Start Date Expiration Date V isits Requested Visits Authorized [id number] Authorized 01/18/2025 999 999 Reason for Visit * Reason Comments NEW PATIENT * Evaluate & Treat - Unlimited Visits (Within 30 days (routine)) - Authorized Specialty Diagnoses / Procedures Referred By Yosvany potter Referred To Contact Sleep Medicine / Sleep Disorders Diagnoses ELAN (obstructive sleep apnea) Sleep trouble Krzysztof Pickering MD [address] [facility] [place] [address] Phone: tel: fax: Referral ID Status Reason Start Date Expiration Date Visits Requested Visits Authorized [id number] Authorized Specialty Services Required 01/09/2025 2 2 Encounter Details Date Type Department Care Team (Late st Contact Info) Description 01/18/2025 10:00 AM EDT Office Visit [facility] [place] [address] [place] [phone] Palmira Herman DO [address] [place] [address] Obstructive sleep apnea*; Hypersomnolence; Morbid obesity (HCC); HTN, goal below 140/90 Allergies Active Allergy Reactions Criticality Noted Date Comments Latex 08/16/2010 Takes skin off with the bandaid Bacitracin-Polymyxin B Other (Please comment) 05/22/2021 Redness and film around edge when applied to skin Nylon 12 07/04/2010 Infection suture line Adhesive Tape 05/14/2007 Bandaids has to use Cloth tape. documented as of this encounter (statuses as of 01/20/2025) Medications Folic Acid 5 MG CAPS Take [...] Severe. Ongoing therapy 120 Tablet 025 Active Levothyroxine Sodium 88 MCG Oral Tablet [...] 90 Tablet 1 025 2024 Discontinued(R efill) documented as of this encounter (statuses as of 01/20/2025) Active Problems Problem Noted Date Diagnosed Date [...] nocturnal ox 08/21/11 CPAP 5-15 cwp [facility] MEDICATION USE AGREEMENT 12/30/2006 Overview (02/20/2009): 02/06/09: Urine screen negative of oxycodone Spondylolisthesis 08/19/2006 Allergic rhinitis due to pollen 01/24/2004 Heterozygous MTHFR mutation [id number] documented as of this encounter (statuses as of 01/20/2025) Resolved Problems Problem Noted Date Diagnosed Date [...] Nocturnal oxygen desaturation 07/25/2013 04/19/2019 [facility] OTHER*[id number] 02/04/2013 07/25/2013 Obesity, morbid (more than 1 00 lbs over ideal weight or BMI > 40) 08/09/2012 07/09/2017 Overview: Per Obesity protocol #1 BMI 70 and over, adult 12/04/201111/28 Obstructive sleep apnea syndrome 09/04/2011 10/02/2011 Genetic Sleep Disorder [facility] Other*[id number] 07/07/2011 05/07/2016 Morbid Obesity, BMI > 40 05/04/201105/2011 Adult body mass index 60.0-69.9 02/02/2011 12/04/2011 Morbid Obesity, BMI > 40 11/20/201010/2010 [facility]*[id number] 07/08/2010 12/18/2015 Overview (12/18/2015): 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 Research*[id number] 03/19/2010 06/26/2010 [facility] OTHER*[id number] 03/19/2010 03/10/2024 Overview (07/25/2013): Completed about 09/2010 [...] (01/01/2010): Per Obesity Taxonomy Heterozygous MTHFR mutation [id number] 07/28/2017 documented as of this encounter (statuses as of 01/20/2025) Immunizations Name Administration Dates Next Due COVID-19 mRNA, LNP-s, No Pre serve, 2-Dose Series (Moderna) 02/16/2021,01/19/2021 COVID-19 mRNA, LNP-s, No Pre serve, 2-Dose Series (Pfizer) 02/08/2021 Diptheria/Tetanus (Adult) 03/24/2017 H1N1 2009 Influenza, IM 11/14/2009 H1N1 2009 Influenza, Intranasal 11/14/2009 Hepatitis B, 20+ yrs 09/08/2023,03/06/2023,11/19 Influenza, Whole Virus 07/13/2019 PPD 06/17/2021 Pneumococcal Conjugate Vacc, 13 Valent (Prevnar) 07/25/2013 Pneumococcal Conjugate Vacci ne, 20-valent ([id number]) 01/09/2025 Pneumococcal Polysaccharide PPV23 (Pneumovax) 07/25/2013 Seasonal [...] on file documented as of this encounter Last Filed Vital Signs Vital Sign Reading Time Taken Comments Blood Pressure 138/90 01/18/2025 10:06 AM EDT Pulse 87 01/18/2025 10:06 AM EDT Temperature 36.3 °C (97.3 °F) 01/18/2025 10:06 AM E DT Respiratory Rate 22 01/18/2025 10:06 AM EDT Oxygen Saturation 90% 01/18/2025 10:06 AM EDT ra, rest Inhaled Oxygen Concentration - - Weight 199 kg (438 lb 12 oz) 01/18/2025 10:06 AM EDT Height 167.6 cm (5' 6") 01/18/2025 10:06 AM EDT Body Mass Index 70.82 01/18/2025 10:06 AM EDT documented in this encounter Functional Status * Are you [...] of Assessment Author No 06/22/2021 5:50 PM EDMary Ellen Amin RN documented as of this encounter Mental Status * Because of a physical, mental, or emotional condition, do you have serious difficulty concentrating, remembering, or making decisions? (5 years old or older) Answer Entry Date Author No 06/22/2021 5:50 PM Mary Ellen Perez RN documented in this encounter Progress Notes * Palmira Herman, - 01/18/2025 10:18 AM EDT Sleep Medicine Evaluation [address] [address] Consultation was requested by: Dr. Pickering for: ELAN, insomnia and a copy of this report is being sent to the provider electronically. Relevant available records reviewed. HPI: Amaya Monteiro is a(n) 55 year old female presenting for evaluation and management of ELAN and insomnia. Prior PSG 07/02/2010 (weight 408 lbs): AHI 28.3; 80 min <90%. She used CPAP for a couple years, then had bariatric surgery, and discontinued CPAP following weight loss (had gotten down to 320 lbs). She was re-evaluated following subsequent increase in weight. PSG 05/26/2019 (weight 408 lbs): AHI 11.6; 116.9 min <89%. Restart of CPAP was recommended, but patient decided not to at that time. 04/2021 home oxygen was ordered from a hospitalization, however, it was never set up. Seen by me 08/16/2021: taking zolpidem 5 mg nightly, sleep latency around 30 minutes, usually sleeping straight through the night, often awakening rested. Amelia 13, FOSQ 33. Ordered updated split-night PSG, however, testing was not completed at that time. Per chart review, last zolpidem Rx was in 2021. No longer on her medication list. Referred back by PCP due to increased insomnia for 3 months, in the setting of untreated sleep apnea. Not sleeping right, having trouble with memory now. Sleep has been worse for 3 months. Patient reports a typical bedtime of 9 pm. She will read a couple pages to relax her mind, then will flip-flop, hard to get comfortable (gets pain down her legs if lying on her back) It takes 20-30 minutes to fall asleep. Patient awakens 2-3 times overnight, often to urinate. It takes a little bit to return to sleep. Patient awakens for the day at 4 AM on work days, around 7 AM on days off, but sometimes will "sleep the Saturdays away", feeling still tired, sometimes wakes up feeling more tired than when she wentto sleep. Patient does feel sleepy or tired during the day. Patient does take naps. Every morning. Will fall asleep if she sits down to watch TV. Patient does have caffeine, coffee in the mornings. Typical sleep position: either side or belly Insomnia severity index 20 The patient reports having ("+" indicates reports, "-" indicates denies): + Snoring, per boyfriend; not waking herself up snoring lately. - Observed apneas - Choking/gasping awakenings + Mouth breathing, wakes up with dry mouth + Acid reflux at night, nightly before bed she gets heartburn, and sometimes wakes up with it. She notes her iron pill upsets her stomach. + Nocturia x2-3 + Morning headaches, feels like someone kicked her in her head. Restless Legs Syndrome Symptoms ("+" indicates reports, "-" indicates denies): - Urge to move legs at night Parasomnias Symptoms ("+" indicates reports, "-" indicates denies): - Sleepwalking - Dream-enactment Narcoleptic Symptoms ("+" indicates reports, "-" indicates denies): + Vivid dreams - Dreams with short naps - Sleep paralysis - Sleep-related hallucinations - Cataplexy Excessive Daytime Sleepiness: Amelia Sleepiness Scale 14 Modified F.O.S.Q. 17 + Drowsy driving, better if she chews on Twizzlers. She has pulled over to nap in a parking lot. + Sleepy with sedentary activity Amelia Sleepiness Scale Question 01/17/2025 12:24 PM EDT - Filed by Patient What is the chance you will doze off in the following situation? Sitting and reading High chance of dozing Watching TV High chance of dozing Sitting inactive in a public place, such as a theater or meeting Moderate chance of dozing As a passenger in a car for an hour without a break Moderate chance of dozing Lying down to rest in the afternoon when circumstances permit Slight chance of dozing When sitting and talking to someone No chance of dozing When sitting quietly after lunch without alcohol High chance of dozing In a car, while stopped for a few minutes in traffic No chance of dozing Score (range: 0 - 24) 14 Functional Outcomes Of Sleep Question 01/17/2025 12:26 PM EDT - Filed by Patient Please complete the following questions. Do you have difficulty concentrating because you are sleepy or tired? Yes, extreme Do you have difficulty remembering things because you are sleepy or tired? Yes, moderate Do you have difficulty operating a motor vehicle for short distances (less than 100 miles) because you become sleepy? Yes, moderate Do you have difficulty operating a motor vehicle for long distances (more than 100 miles) because you become sleepy? Yes, moderate Do you have difficulty visiting family or friends in their home because you become sleepy or tired?Yes, a little Has your relationship with family, friends, or work colleagues been affected because you are sleepyor tired? Yes, moderate Do you have difficulty watching a movie or video because you become sleepy or tired? Yes, extreme Do you have difficulty being as active as you want to be in the evening because you are tired or sleepy? Yes, extreme Do you have difficulty being as active as you want to be in the morning because you are tired or sleepy? Yes, extreme Has your mood been affected because you are sleepy or tired? Yes, moderate Score (range: 10 - 40) 17 PMH: Past Medical History: Diagnosis Date Allergic rhinitis Class 3 severe obesity due to excess calories with body mass index (BMI) greater than or equal to 70 in adult ([facility]) 02/02/2020 CPAP (continuous positive airway pressure) dependence 07/25/2013 Deep vein thrombosis (DVT) of popliteal vein of left lower extremity ([facility]) 11/04/201610/2016 Depressive disorder, not elsewhere classified 10/2002 anxiety, diagnosed by Dr Mary PAUL Factor 5 Leiden mutation, heterozygous ([facility]) 11/07/2013 Heterozygous, molecular analysis has detected the R506Q mutation associated with factor V Leiden Generalized osteoarthritis of multiple sites GERD (gastroesophageal reflux disease) H/O deep venous thrombosis 07/28/2017 x2 H/O thrombophlebitis 07/28/2017 Heterozygous MTHFR mutation X1171A Heterozygous MTHFR mutation C677T History of kidney stones 02/04/2021 History of tobacco use quit in 1989 HTN, goal below 140/90 10/[address] Mary PAUL Hyperparathyroidism ([facility]) 07/27/2019 [address] Mary PAUL Major depressive disorder with single episode, in partial remission ([facility]) 07/30/2018 MEDICATION USE AGREEMENT 12/30/2006 Morbid obesity, BMI not known ([facility]) [facility] OTHER*[id number] 03/19/2010 Completed about 09/2010 Nocturnal oxygen desaturation 07/25/2013 Organic sleep disorder insomnia Osteoarthritis of knee 11/06/2011 Other organic sleep apnea Primary localized osteoarthrosis, lower leg S/P partial gastrectomy 03/20/2015 SLEEP APNEA, UNSPECIFIED: AHI 28.3 07/23/2010 11/28/11 -- CPAP with 2 LPM 10/25/11 Noct ox RA -- low 67%, mean 91%, <89% 54 mins, ANAIS 15 10/02/11 -- change to heated tubing device, auto CPAP 5-11 cwp, nocturnal ox 08/21/11 CPAP 5-15 cwp [facility] Varicella without complication age 1 She has had cellulitis of legs Past Surgical History: Procedure Laterality Date CARPAL TUNNEL SURGERY , 11/05 Bilateral right first, left second, Dr Glynn [facility] COLONOSCOPY, DIAGNOSTIC (RECTUM) 02/2018 adenomatous & hyperplastic polyps, diverticulosis, poor prep, repeat 5 yrs/[facility] COLONOSCOPY, DIAGNOSTIC (RECTUM) N/A 12/11/2023 poor prep/hemorrhoids/anal papilla hypertrophied/recall 3 years/Colonoscopy/MI DILATION AND CURETTAGE (D&C) for irregular bleeding EGD, FLEXIBLE, DIAGNOSTIC 02/02/2015 mild inflammation/[facility] EGD, FLEXIBLE, DIAGNOSTIC N/A 03/12/2015 ESOPHAGOGASTRODUODENOSCOPY (EGD), FLEXIBLE, TRANSORAL, DIAGNOSTIC performed by Colby Ayala OR [facility] IR ASPIRATION ABSCESS/COLLECTION 04/16/2021 LAPAROSCOPE PROCEDURE, LIVER N/A 03/12/2015 UNLISTED LAPAROSCOPIC PROCEDURE LIVER performed by Ramon Will MD at OR [facility] MAMMOGRAM SCREENING BILATERAL 10/13/2010 birad 1, repeat in 12mths OTHER (INFORMATION) jaw surgery for fitting of partial dentures SLEEVE GASTRECTOMY, LAPROSCOPY N/A 03/12/2015 03/12/2015 LAPAROSCOPY SLEEVE GASTRECTOMY performed by Ramon Will MD at OR [facility] ALLERGIES: Review of patient's allergies indicates: Allergen Reactions Latex Takes skin off with the bandaid Neosporin [Bacitracin-Polymyxin B] Other (Please comment) Redness and film around edge when applied to skin Nylon 12 Infection suture line Tape [Adhesive Tape] Bandaids has to use Cloth tape. MEDS: Current Outpatient Medications Medication Sig Dispense Refill oxyCODONE-Acetaminophen 10-325 MG Oral Tablet (Percocet) Take 1 Tablet by mouth every 6 hours as needed for Pain, Severe. Ongoing therapy 120 Tablet 0 Furosemide 20 MG Oral Tablet (Lasix) TAKE 1 TABLET BY MOUTH DAILY FOR FLUID ACCUMULATION OR WEIGHT GAIN. 90 Tablet 1 Fluticasone Propionate 50 MCG/ACT Nasal Suspension (Flonase) ADMINISTER 2 SPRAYS INTO EACH NOSTRIL DAILY. 48 mL 1 Omeprazole 20 MG Oral Capsule Delayed Release (PriLOSEC) TAKE 2 CAPSULES DAILY 180 Capsule 3 DULoxetine HCl 30 MG Oral Capsule Delayed Release Particles (Cymbalta) Take 1 Capsule by mouth in the morning. Do not cut, crush or chew. 90 Capsule 3 Warfarin Sodium 10 MG Oral Tablet (Coumadin) TAKE 1/2 TO 1 TABLET BY MOUTH EVERY EVENING DIRECTED BY [facility] 65 Tablet 3 Calcium Citrate-Vitamin D3 315-6.25 MG-MCG Oral Tablet (Citracal Maximum) Take by mouth. 1 tab twice daily Vitamin D 50 MCG (2000 UT) Oral Capsule Take 1 Capsule by mouth in the morning. buPROPion HCl ER (SR) 150 MG Oral Tablet Extended Release 12 Hour (Wellbutrin SR) TAKE 2 TABLETS BYMOUTH EVERY MORNING AND 1 TABLET IN THE AFTERNOON NOT LATER THAN 1PM 270 Tablet 2 DULoxetine HCl 60 MG Oral Capsule Delayed Release Particles (Cymbalta) TAKE ONE CAPSULE BY MOUTH DAILY 90 Capsule 3 Levothyroxine Sodium 88 MCG Oral Tablet (Levoxyl) TAKE 1 TABLET BY MOUTH EVERY DAY THE FIRST THING IN THE MORNING AT LEAST 30 MIN. PRIOR TO BREAKFAST 90 Tablet 3 Spacer/Aero-Holding Chambers Device Use with inhaler. 1 Each 0 Ventolin HFA 108 (90 Base) MCG/ACT Inhalation Aerosol Solution Inhale 2 Puffs by mouth every 4 hours as needed for Wheezing. 18 g 0 Oxybutynin Chloride ER 5 MG Oral Tablet Extended Release 24 Hour (Ditropan XL) Take 1 Tablet by mouth in the morning. In the morning.. 30 Tablet 0 Cyclobenzaprine HCl 5 MG Oral Tablet (Flexeril) TAKE ONE TABLET BY MOUTH AT BEDTIME NEEDED FOR MUSCLE SPASMS 30 Tablet 0 Vitron-C 65-125 MG Oral Tablet (Iron-Vitamin C) Take one pill by mouth twice a day 60 Tablet 5 Tylenol 325 MG Oral Capsule (Acetaminophen) Take by mouth as needed for Pain. Two tablets fexofenadine-pseudoephedrine ER 60-120 mg per tab (JACINTO-D) 60-120 MG TB12 Take 1 Tablet by mouth2 times a day as needed for Allergies. Folic Acid 5 MG CAPS Take 1 Tab by mouth daily. No current facility-administered medications for this visit. Has not taken the Flexeril in a while Takes the Percocet regularly FHx: brother has sleep apnea on CPAP Social hx: Tobacco use: none currently Alcohol use: rare (maybe one drink 1-2 times per year) Drug use: none Employment: not employed PE: VITAL SIGNS: Filed Vitals: 01/18/25 1006 BP: 138/90 Pulse: 87 Resp: 22 Temp: 36.3 °C (97.3 °F) TempSrc: Tympanic SpO2: 90% Weight: (!) 199 kg (438 lb 12 oz) Height: 1.676 m (5' 6") Body mass index is 70.82 kg/m². GEN: Ambulatory, obese, NAD ORAL: limited dentition Tongue enlarged Hard palate normal Oral mucous membranes moist OP: Soft palate normal Mallampati IV NECK: Circumference 14.5" RESP: Unlabored respirations Breath sounds clear, no wheezes or rales CVS: Regular rate and rhythm NEURO: Speech clear and appropriate IMPRESSION/RECOMMENDATIONS: Hx ELAN, untreated Snoring, insomnia, excessive daytime sleepiness - suspect ELAN is contributing to the increase in sleepiness / worsened sleep quality. - STOP-BANG 5 (snoring, tired, HTN, BMI > 35, and age > 50) - Discussed the pathophysiology, implications on short- and long-term health, diagnostic evaluation, and likely treatment options of ELAN - Schedule an overnight PSG - split night protocol if meets criteria. - if updated testing confirms ELAN, will most likely plan to restart tx with CPAP. No DME preferencenoted. - Avoid driving when sleepy/drowsy. Follow-up: Return MyG with PSG results. | Check-out note: PSG [facility] Palmira Herman DO documented in this encounter Nursing Notes * Alvina Harding LPN - 01/18/2025 10:02 AM EDT New pt referred for evaluation of insomnia. Neck - 14.5" Insomnia index - 20 Amelia Sleepiness Scale Question 01/17/2025 12:24 PM EDT - Filed by Patient What is the chance you will doze off in the following situation? Sitting and reading High chance of dozing Watching TV High chance of dozing Sitting inactive in a public place, such as a theater or meeting Moderate chance of dozing As a passenger in a car for an hour without a break Moderate chance of dozing Lying down to rest in the afternoon when circumstances permit Slight chance of dozing When sitting and talking to someone No chance of dozing When sitting quietly after lunch without alcohol High chance of dozing In a car, while stopped for a few minutes in traffic No chance of dozing Score (range: 0 - 24) 14 Functional Outcomes Of Sleep Question 01/17/2025 12:26 PM EDT - Filed by Patient Please complete the following questions. Do you have difficulty concentrating because you are sleepy or tired? Yes, extreme Do you have difficulty remembering things because you are sleepy or tired? Yes, moderate Do you have difficulty operating a motor vehicle for short distances (less than 100 miles) because you become sleepy? Yes, moderate Do you have difficulty operating a motor vehicle for long distances (more than 100 miles) because you become sleepy? Yes, moderate Do you have difficulty visiting family or friends in their home because you become sleepy or tired?Yes, a little Has your relationship with family, friends, or work colleagues been affected because you are sleepyor tired? Yes, moderate Do you have difficulty watching a movie or video because you become sleepy or tired? Yes, extreme Do you have difficulty being as active as you want to be in the evening because you are tired or sleepy? Yes, extreme Do you have difficulty being as active as you want to be in the morning because you are tired or sleepy? Yes, extreme Has your mood been affected because you are sleepy or tired? Yes, moderate Score (range: 10 - 40) 17 documented in this encounter Plan of Treatment Upcoming Encounters Date Type Department Care Team (Late st Contact Info) Description 03/02/2025 7:30 AM EDT Anticoagulation Pharmacy, [facility] [address] [place] [address] [facility] [address] [facility] [place] [address] 07/10/2025 10:40 AM EDT Office Visit Endocrinology [address] [place] [phone] Kylee Cox MD [address] [place] [id number] 08/21/2025 9:20 AM EST Office Visit General Internal Medicine [facility] [place] [address] [facility] [place], [place] [address] Krzysztof Pickering MD [address] [place] [address] Scheduled Orders Name Type Priority Associated Diagnoses Orde r Schedule SLEEP STUDY, W/O CPAP Procedures Routine Obstructive sleep apnea Hypersomnolence Morbid obesity (HCC) HTN, goal below 140/90 Ordered: 01/18/2025 SLEEP STUDY, W/ CPAP (TREATMENT SETTINGS) Procedures Routine Obstructive sleep apnea Hypersomnolence Morbid obesity (HCC) HTN, goal below 140/90 Ordered: 01/18/2025 Scheduled Procedures Name Priority Associated Diagnoses Date/Ti [...] Depression Monitoring 01/09/2026 01/09/2025 Mammogram 01/13/2026 01/13/2025, 0 06/2024, 01/12/2024, Additional history exists Colonoscopy 12/10/2026 [...] as of this encounter Visit Diagnoses Diagnosis Obstructive sleep apnea- Primary Obstructive sleep apnea (adult) (pediatric) Hypersomnolence Hypersomnia, unspecified Morbid obesity (HCC) Morbid obesity HTN, goal below 140/90 Unspecified essential hypertension documented in this encounter Advance Directives * [...] and were consensually agreed upon. Care Teams Cross Country Coach Relationship Specialty Start Date End Date Krzysztof Pickering MD [address] [facility] [place] [address] PCP - General Internal Medicine 06/19/16 documented as of this encounter
--- OUTSIDE RECORDS SUMMARY | 2025-02-20 22:50 | External Medical Summary | Summary of Care ---
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 Name Role Phone Krzysztof Pickering MD Primary Care Provider + Reason for Referral * Evaluate & Treat - Unlimited Visits (Within 30 days (routine)) - Authorized Specialty Diagnoses / Procedures Referred By Yosvany potter Referred To Contact Physical Therapy / Physical Medicine And Rehab Diagnoses Chronic edema Krzysztof Pickering MD [address] [place] [address] Phone: tel: fax: Referral ID Status Reason Start Date Expiration Date Visits Requested Visits Authorized [id number] Authorized Specialty Services Required 01/09/[phone] Question Answer Referral Priority Within 30 days (routine) Where should this appointment be scheduled? [facility] * Evaluate & Treat - Unlimited Visits (Within 30 days (routine)) - Authorized Specialty Diagnoses / Procedures Referred By Yosvany potter Referred To Contact Sleep Medicine / Sleep Disorders Diagnoses ELAN (obstructive sleep apnea) Sleep trouble Krzysztfo Pickering MD [address] [place] [address] Phone: tel: fax: Referral ID Status Reason Start Date Expiration Date Visits Requested Visits Authorized [id number] Authorized Specialty Services Required 01/09/2025 2 2 Question Answer Referral Priority Within 30 days (routine) Where should this appointment be scheduled? [facility] Sleep Apnea Testing and Management Does the patient snore and/or gasp at night or has been told they stop breathing at night? Yes, document patient's symptoms in progress note Comments And insomnia Reason for Visit * Reason Comments Re-Check Routine check up Sleep Problems Trouble getting to s leep - ongoing for about the past 3 months Memory Loss States she has probl em remembering little things Encounter Details Date Type Department Care Team (Late st Contact Info) Description 01/09/2025 10:20 AM EDT Office Visit General Internal Medicine [facility] [place] [address] [facility] [place] [address] Krzysztof Pickering MD [address] [facility] [place] [address] ELAN (obstructive sleep apnea)*; Hypothyroidism due to acquired atrophy of thyroid; Major depressive disorder, single episode, severe with psychotic features ([facility]); Sleep trouble; Hyperparathyroidism ([facility]); Chronic edema; HTN, goal below 140/90; Need for pneumococcal vaccination; Factor 5 Leiden mutation, heterozygous ([facility]); Chronic bilateral low back pain with bilateral sciatica; Chronic pain syndrome; H/O deep venous thrombosis Allergies Active Allergy Reactions Criticality Noted Date Comments Latex 08/16/2010 Takes skin off with the bandaid Bacitracin-Polymyxin B Other (Please comment) 05/22/2021 Redness and film around edge when applied to skin Nylon 12 07/04/2010 Infection suture line Adhesive Tape 05/14/2007 Bandaids has to use Cloth tape. documented as of this encounter (statuses as of 01/09/2025) Medications Folic Acid 5 MG CAPS Take [...] as of this encounter (statuses as of 01/09/2025) Active Problems Problem Noted Date Diagnosed Date [...] as of this encounter (statuses as of 01/09/2025) Resolved Problems Problem Noted Date Diagnosed Date [...] Nocturnal oxygen desaturation 07/25/2013 04/19/2019 [facility] OTHER*[id number] 02/04/2013 07/25/2013 Obesity, morbid (more than 1 00 lbs over ideal weight or BMI > 40) 08/09/2012 07/09/2017 Overview: Per Obesity protocol #1 BMI 70 and over, adult 12/04/201111/28 Obstructive sleep apnea syndrome 09/04/2011 10/02/2011 Genetic Sleep Disorder [facility] Other*[id number] 07/07/2011 05/07/2016 Morbid Obesity, BMI > 40 05/04/201105/2011 Adult body mass index 60.0-69.9 02/02/2011 12/04/2011 Morbid Obesity, BMI > 40 11/20/201010/2010 [facility]*[id number] 07/08/2010 12/18/2015 Overview (12/18/2015): 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 Research*[id number] 03/19/2010 06/26/2010 [facility] OTHER*[id number] 03/19/2010 03/10/2024 Overview (07/25/2013): Completed about 09/2010 [...] (01/01/2010): Per Obesity Taxonomy Heterozygous MTHFR mutation [id number] 07/28/2017 documented as of this encounter (statuses as of 01/09/2025) Immunizations Name Administration Dates Next Due COVID-19 mRNA, LNP-s, No Pre serve, 2-Dose Series (Moderna) 02/16/2021,01/19/2021 COVID-19 mRNA, LNP-s, No Pre serve, 2-Dose Series (Pfizer) 02/08/2021 Diptheria/Tetanus (Adult) 03/24/2017 H1N1 2009 Influenza, IM 11/14/2009 H1N1 2009 Influenza, Intranasal 11/14/2009 Hepatitis B, 20+ yrs 09/08/2023,03/06/2023,11/19 Influenza, Whole Virus 07/13/2019 PPD 06/17/2021 Pneumococcal Conjugate Vacc, 13 Valent (Prevnar) 07/25/2013 Pneumococcal Conjugate Vacci ne, 20-valent ([id number]) 01/09/2025 Pneumococcal Polysaccharide PPV23 (Pneumovax) 07/25/2013 Seasonal [...] 0 06/28/1999 - 06/28/2001 Smokeless Tobacco: Never Tobacco Cessation:Counseling Given: Not Answered Comments:not current Alcohol Use Standard Drinks/Week Comments [...] Sign Reading Time Taken Comments Blood Pressure 112/68 01/09/2025 10:16 AM EDT Pulse 76 01/09/2025 10:16 AM EDT Temperature 36.6 °C (97.8 °F) 01/09/2025 10:16 AM E DT Respiratory Rate 16 01/09/2025 10:16 AM EDT Oxygen Saturation - - Inhaled Oxygen Concentration - - Weight 197.5 kg (435 lb 8 oz) 01/09/2025 10:16 A M EDT Height - - Body Mass Index 70.29 04/15/2024 11:16 AM EDT documented in this encounter Functional [...] Ellen Cardoza RN documented in this encounter Patient Instructions * Patient Instructions* Joel Aguilar RN - 01/09/2025 10:20 AM EDT ~~PATIENT INSTRUCTIONS FOR PNEUMOCOCCAL VACCINE~~ Possible side effects of pneumococcal vaccine, (pneumonia shot), are usually mild and can include: 1. Soreness or redness at injection site 2. Low grade fever 3. Body aches You may use Tylenol/Acetaminophen as needed for these symptoms. LET YOUR DOCTOR KNOW IMMEDIATELY IF YOU HAVE DIFFICULTY BREATHING OR SWALLOWING, EXPERIENCE ITCHINGOF FEET OR HANDS, HAVE SWELLING OF EYES, FACE OR INSIDE OF NOSE. documented in this encounter Progress Notes * Krzysztof Pickering MD - 01/09/2025 10:46 AM EDT Chief Complaint Patient presents with Re-Check Routine check up Sleep Problems Trouble getting to sleep - ongoing for about the past 3 months Memory Loss States she has problem remembering little things SUBJECTIVE: Amaya Monteiro is a 55 year old female with PMH as below who presents for f/u, elan, obesity, htn,h/o dvt. No cp ,sob ,fung. Mood was down last week, felt at one point life not worth living with pain, but pain in legs improved, better now, mood better and no suicidal thoughts. Has a new puppy and really enjoying it, helping mood. Does have trouble getting to sleep at times, falling asleep for 3 months, does have elan, not using cpap. Feels in that time, short term memory a little worse, forgetful at times. No n/v/d. Weight is down 15 lbs or so from [place] with eating less, less snacking. Oxycodone helping leg pain, tolerates med ok, , moving bowels, no confusion Patient Active Problem List Diagnosis Allergic rhinitis due to pollen Spondylolisthesis MEDICATION USE AGREEMENT SLEEP APNEA, UNSPECIFIED: AHI 28.3 Osteoarthritis of knee Factor 5 Leiden mutation, heterozygous (HCC) Heterozygous MTHFR mutation [id number] Chronic pain syndrome ELAN (obstructive sleep apnea) S/P partial gastrectomy Hypothyroidism due to acquired atrophy of thyroid HTN, goal below 140/90 H/O thrombophlebitis H/O deep venous thrombosis Nocturnal hypoxemia Hyperparathyroidism (HCC) Chronic insomnia Chronic bilateral low back pain with bilateral sciatica History of kidney stones Major depressive disorder, single episode, severe with psychotic features (HCC) 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 fexofenadine-pseudoephedrine ER 60-120 mg per tab (JACINTO-D) 60-120 MG TB12 Take 1 Tablet by mouth2 times a day as needed for Allergies. Tylenol 325 MG Oral Capsule (Acetaminophen) Take by mouth as needed for Pain. Two tablets Vitron-C 65-125 MG Oral Tablet (Iron-Vitamin C) Take one pill by mouth twice a day 60 Tablet 5 Oxybutynin Chloride ER 5 MG Oral Tablet Extended Release 24 Hour (Ditropan XL) Take 1 Tablet by mouth in the morning. In the morning.. 30 Tablet 0 Cyclobenzaprine HCl 5 MG Oral Tablet (Flexeril) TAKE ONE TABLET BY MOUTH AT BEDTIME NEEDED FOR MUSCLE SPASMS 30 Tablet 0 Spacer/Aero-Holding Chambers Device Use with inhaler. 1 Each 0 Levothyroxine Sodium 88 MCG Oral Tablet (Levoxyl) TAKE 1 TABLET BY MOUTH EVERY DAY THE FIRST THING IN THE MORNING AT LEAST 30 MIN. PRIOR TO BREAKFAST 90 Tablet 3 DULoxetine HCl 60 MG Oral Capsule Delayed Release Particles (Cymbalta) TAKE ONE CAPSULE BY MOUTH DAILY 90 Capsule 3 buPROPion HCl ER (SR) 150 MG Oral Tablet Extended Release 12 Hour (Wellbutrin SR) TAKE 2 TABLETS BYMOUTH EVERY MORNING AND 1 TABLET IN THE AFTERNOON NOT LATER THAN 1PM 270 Tablet 2 Vitamin D 50 MCG (2000 UT) Oral Capsule Take 1 Capsule by mouth in the morning. Calcium Citrate-Vitamin D3 315-6.25 MG-MCG Oral Tablet (Citracal Maximum) Take by mouth. 1 tab twice daily Warfarin Sodium 10 MG Oral Tablet (Coumadin) TAKE 1/2 TO 1 TABLET BY MOUTH EVERY EVENING DIRECTED BY [facility] 65 Tablet 3 DULoxetine HCl 30 MG Oral Capsule Delayed Release Particles (Cymbalta) Take 1 Capsule by mouth in the morning. Do not cut, crush or chew. 90 Capsule 3 Omeprazole 20 MG Oral Capsule Delayed Release (PriLOSEC) TAKE 2 CAPSULES DAILY 180 Capsule 3 Fluticasone Propionate 50 MCG/ACT Nasal Suspension (Flonase) ADMINISTER 2 SPRAYS INTO EACH NOSTRIL DAILY. 48 mL 1 Furosemide 20 MG Oral Tablet (Lasix) TAKE 1 TABLET BY MOUTH DAILY FOR FLUID ACCUMULATION OR WEIGHT GAIN. 90 Tablet 1 oxyCODONE-Acetaminophen 10-325 MG Oral Tablet (Percocet) Take 1 Tablet by mouth every 6 hours as needed for Pain, Severe. Ongoing therapy 120 Tablet 0 Ventolin HFA 108 (90 Base) MCG/ACT Inhalation Aerosol Solution Inhale 2 Puffs by mouth every 4 hours as needed for Wheezing. 18 g 0 No current facility-administered medications for this visit. Review of patient's allergies indicates: Allergen Reactions Latex Takes skin off with the bandaid Neosporin [Bacitracin-Polymyxin B] Other (Please comment) Redness and film around edge when applied to skin Nylon 12 Infection suture line Tape [Adhesive Tape] Bandaids has to use Cloth tape. Health Maintenance Due Topic Date Due COVID-19 Vaccine ( season) 2024 ROS: CONSTITUTIONAL: No fevers, sweats, or chills PULMONARY: No cough, sputum, or hemoptysis, No wheezing, No rales, No shortness of breath, and No recent change in breathing CARDIOVASCULAR: No chest pain, No shortness of breath, No dyspnea on exertion, No orthopnea, No paroxysmal nocturnal dyspnea, No palpitations, No syncope, and +ongoing chronic edema legs, no recent infections GASTROINTESTINAL: No abdominal pain, No change in bowel habits, No significant heartburn, No significant change in appetite, and No nausea, vomiting, diarrhea, or constipation ALL OTHER SYSTEMS NEGATIVE I reviewed social, PMH, PSH, and family history and updated where needed. 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 Employer: [employer] Comment: approved for SSD, approved 01/2010 Tobacco Use Smoking status: Former Current packs/day: 0.00 Average packs/day: 0.5 packs/day for 2.0 years (1.0 ttl pk-yrs) Types: Cigarettes Start date: 06/28/1999 Quit date: 06/28/2001 Years since quittin.5 Smokeless tobacco: Never Tobacco comments: not current Vaping Use Vaping status: Never Used Substance and Sexual Activity Alcohol use: No Comment: denies Drug use: No Sexual activity: Yes Partners: Male Other Topics Concern Service No Blood Transfusions No Caffeine Concern Not Asked Occupational Exposure Not Asked Hobby Hazards Not Asked Sleep Concern Yes Comment: taking Ambien Stress Concern Not Asked Weight Concern Not Asked Special Diet Not Asked Back Care Not Asked Exercise Not Asked Bike Helmet Not Asked Seat Belt No Self-Exams Not Asked Social History Narrative born in [place] Currently lives with son and boyfriend (construction), 07/25/13 son at [employer], boyfriend works out of town Social Needs Financial Resource Strain: Low Risk (03/10/2024) Financial Resource Strain Do you have any trouble paying for your medications, or do you think you might in the future? (Adult - for ages 18 years and over): No Does your family have trouble paying for medicine? (Household - for ages 0-17 years): Not on file Food Insecurity: No Food Insecurity (03/10/2024) Food Insecurity Worried About Running Out of Food in the Last Year: Never true Ran Out of Food in the Last Year: Never true Do you need food for this week? (Adult - for ages 18 years and over): No Transportation Needs: No Transportation Needs (03/10/2024) Transportation Needs Do you have trouble getting a ride to medical visits or work? (Adult - for ages 18 years and over):Never True Does your family have a hard time getting a ride to doctors’ visits? (Household - for ages 0-17 years): Not on file Has lack of transportation kept you from medical appointments, meetings, work, or from getting things needed for daily living? Check all that apply. (Adult - for ages 18 years and over): Not on file Do you (or your family) have trouble finding or paying for a ride (transportation)? (Household - for ages 0-17 years): Not on file Social Connections: Socially Integrated (03/10/2024) Social Connections How often do you feel lonely or isolated from those around you? (Adult - for ages 18 years and over): Rarely Housing Stability: Low Risk (03/10/2024) Housing Stability Do you currently live in a mcfp or have no steady place to sleep at night? (Adult - for ages 18 years and over): No Do you think you are at risk of becoming homeless? (Adult - for ages 18 years and over): No Does your family worry about paying for your home or becoming homeless? (Household - for ages 0-17 years): Not on file Are you homeless or worried that you might be in the future? (Adult - for ages 18 years and over): Not on file Are you (or your family) homeless or worried that you might be in the future? (Household - for ages0-17 years): Not on file Past Medical History: Diagnosis Date Allergic rhinitis Class 3 severe obesity due to excess calories with body mass index (BMI) greater than or equal to 70 in adult ([facility]) 02/02/2020 CPAP (continuous positive airway pressure) dependence 07/25/2013 Deep vein thrombosis (DVT) of popliteal vein of left lower extremity ([facility]) 11/04/201610/2016 Depressive disorder, not elsewhere classified 10/2002 anxiety, diagnosed by Dr Mary PAUL Factor 5 Leiden mutation, heterozygous ([facility]) 11/07/2013 Heterozygous, molecular analysis has detected the R506Q mutation associated with factor V Leiden Generalized osteoarthritis of multiple sites GERD (gastroesophageal reflux disease) H/O deep venous thrombosis 07/28/2017 x2 H/O thrombophlebitis 07/28/2017 Heterozygous MTHFR mutation [id number] Heterozygous MTHFR mutation C677T History of kidney stones 02/04/2021 History of tobacco use quit in 1989 HTN, goal below 140/90 10/[address] Mary PAUL Hyperparathyroidism (HCC) 07/27/2019 [address] Mary PAUL Major depressive disorder with single episode, in partial remission (HCC) 07/30/2018 MEDICATION USE AGREEMENT 12/30/2006 Morbid obesity, BMI not known ([facility]) [facility] OTHER*[id number] 03/19/2010 Completed about 09/2010 Nocturnal oxygen desaturation [...] ox 08/21/11 CPAP 5-15 cwp [facility] Varicella without complication age 1 Past Surgical History: Procedure Laterality Date CARPAL TUNNEL SURGERY , 11/05 Bilateral right first, left second, Dr Glynn [facility] COLONOSCOPY, DIAGNOSTIC (RECTUM) 02/2018 adenomatous & hyperplastic polyps, diverticulosis, poor prep, repeat 5 yrs/[facility] [place] COLONOSCOPY, DIAGNOSTIC (RECTUM) N/A 12/11/2023 poor prep/hemorrhoids/anal papilla hypertrophied/recall 3 years/Colonoscopy/[place] DILATION AND CURETTAGE (D&C) for irregular bleeding EGD, FLEXIBLE, DIAGNOSTIC 02/02/2015 mild inflammation/[facility] [place] EGD, FLEXIBLE, DIAGNOSTIC N/A 03/12/2015 ESOPHAGOGASTRODUODENOSCOPY (EGD), FLEXIBLE, TRANSORAL, DIAGNOSTIC performed by Colby Ayala [place] [facility] [place] IR ASPIRATION ABSCESS/COLLECTION 04/16/2021 LAPAROSCOPE PROCEDURE, LIVER N/A 03/12/2015 UNLISTED LAPAROSCOPIC PROCEDURE LIVER performed by Ramon Will MD at [place] [facility] [place] MAMMOGRAM SCREENING BILATERAL 10/13/2010 birad 1, repeat in 12mths OTHER (INFORMATION) jaw surgery for fitting of partial dentures SLEEVE GASTRECTOMY, LAPROSCOPY N/A 03/12/2015 03/12/2015 LAPAROSCOPY SLEEVE GASTRECTOMY performed by Ramon Will MD at [place] [facility] [place] Family History Problem Relation Name Age of Onset Diabetes Mother Hypertension Mother Thyroid Disorder Mother Gastro-intestinal disorder Mother blocked bowel- Heart Disorder Father Heart Disorder Grandfather (Paternal) Breast Cancer Aunt (Maternal) dx >50y Breast Cancer Aunt (Maternal) dx >50y Breast Cancer Aunt (Maternal) dx >50y Breast Cancer Cousin (Maternal) OBJECTIVE: PHYSICAL EXAM: BP 112/68 (BP Site: Left Arm, BP Position: Sitting, BP Cuff Size: Thigh) | Pulse 76 | Temp 97.8 °F(36.6 °C) (Tympanic) | Resp 16 | Wt (!) 435 lb 8 oz (197.5 kg) | BMI 70.29 kg/m² | BSA 3.03 m² General: alert, healthy, and no distress Head: Normocephalic, No masses, lesions, or abnormalities Eye Exam: conjunctiva are pink and non-injected, sclera clear Oropharynx: no exudate, no erythema, lips, buccal mucosa, and tongue normal, and mucous membranes are moist Heart: regular rate & rhythm, no murmur, no gallops, PMI non-displaced, S-1 normal, and S-2 normal Lungs: normal respiratory rate and rhythm, lungs clear to auscultation Extremities: no clubbing, no cyanosis, +chronic edema bilateral legs to calf, not warm or tender, mild rubor I reviewed last lipid, gfr, lft, tsh ASSESSMENT: (G47.33) ELAN (obstructive sleep apnea) (primary encounter diagnosis) (E03.4) Hypothyroidism due to acquired atrophy of thyroid (F32.3) Major depressive disorder, single episode, severe with psychotic features (HCC) (G47.9) Sleep trouble (E21.3) Hyperparathyroidism (HCC) (R60.9) Chronic edema (I10) HTN, goal below 140/90 (Z23) Need for pneumococcal vaccination (D68.51) Factor 5 Leiden mutation, heterozygous (HCC) (M54.42, M54.41, G89.29) Chronic bilateral low back pain with bilateral sciatica (G89.4) Chronic pain syndrome (Z86.718) H/O deep venous thrombosis PLAN: ELAN (obstructive sleep apnea) (Primary) - SLEEP MEDICINE REFERRAL OP May need to resume cpap, causing sleep issues, will ask sleep aid Also maybe effecting memory, will try to fix elan, if memory or issues persist, will let me know Hypothyroidism due to acquired atrophy of thyroid Cont levothyroxine Major depressive disorder, single episode, severe with psychotic features (HCC) Cont wellbutrin, cymbalta Discussed issues from last week, seeing psychology and psychiatry, declines Crisis line given, agrees to call if worsens Sleep trouble - SLEEP MEDICINE REFERRAL OP Hyperparathyroidism (HCC) Sees endocrine Chronic edema - PHYSICAL THERAPY REFERRAL OP Discussed pt, agrees Cont lasix HTN, goal below 140/90 Cont lasix Need for pneumococcal vaccination - PNEUMOCOCCAL VACC, PCV20, IM ([id number]) Factor 5 Leiden mutation, heterozygous ([facility]) Cont coumading 2/2 history dvt Chronic bilateral low back pain with bilateral sciatica Cont oxycodone Chronic pain syndrome As above H/O deep venous thrombosis Cont coumadin Follow Up: Return in about 6 months (around 07/11/2025), or if symptoms worsen or fail to improve. Krzysztof Pickering MD documented in this encounter Nursing Notes * Joel Aguilar RN - 01/09/2025 10:20 AM EDT Chief Complaint Patient presents with Re-Check Routine check up Sleep Problems Trouble getting to sleep - ongoing for about the past 3 months Memory Loss States she has problem remembering little things Pre-Administration Time Out Procedure Performed: Yes Patient Identified (Ask Name/Date of ): Yes Does the patient have a fever greater than 101 degrees today? No Patient allergic to latex? Yes Has the patient ever fainted after receiving an injection? No VFC Stock: No Immunization(s) verified: Yes, Immunization Name: Prevnar 20 (PCV20), VIS Sheet(s) given: Yes Verified Side and Site: Yes Verified Shot(s) with Parent(s)/Patient: Yes documented in this encounter Plan of Treatment Upcoming Encounters Date Type Department Care Team (Late st Contact Info) Description 01/13/2025 7:15 AM EDT Imaging Radiology [facility] [address] [place] [id number] 01/18/2025 10:00 AM EDT Office Visit Sleep Disorders [facility] [address] [place] [id number] Palmira Herman, [address] [place] [address] 01/19/2025 7:30 AM EDT [facility], [facility] [address] [facility] [place] [phone] [place] [facility] [address] [place] [address] 07/10/2025 10:40 AM EDT Office Visit Endocrinology [address] [place] [phone] Kylee Cox MD [address] [place] [address] [id number] 08/21/2025 9:20 AM EST Office Visit General Internal Medicine [facility] [address] [facility] [place] [address] Krzysztof Pickering MD [address] [facility] [place] [address] Scheduled Procedures Name Priority Associated Diagnoses Date/Ti me COLONOSCOPY FLEXIBLE PROXIMA L DIAGNOSTIC Recall History of colonic polyps Scheduled Referrals Name Type Priority Associated Diagnoses Orde r Schedule SLEEP MEDICINE REFERRAL OP Referral Within 30 days (routine) ELAN (obstructive sleep apnea) Sleep trouble Ordered: 01/09/2025 PHYSICAL THERAPY REFERRAL OP Referral Within 30 days (routine) Chronic edema Ordered: 01/09/2025 Health Maintenance Due Date Last Done Comments Cologuard 01/06/2013 Fecal Occult Blood Test 01/06/2013 Sigmoidoscopy 01/06/2013 COVID-19 Vaccine ( season) 2024 02/16/2021, 02/08/2021, 01/19/2021 Mammogram 01/11/2025 01/12/2024, 04/0 06/2024, 12/29/2022, Additional history exists Albumin/Creatinine Ratio 04/11/2025 04/11/2022, 04/04 Pap Smear 09/03/2025 09/03/2022, 04/0 11/2018, 11/04/2016, Additional history exists GFR 11/23/2025 11/23/2024, 03/05, 03/10/2024, Additional history exists TSH 11/23/2025 11/23/2024, 03/05, 11/04/2023, Additional history exists Depression Monitoring 01/09/2026 01/09/2025 Colonoscopy 12/10/2026 12/11/2023, 03/0 05/2024, 02/17/2018 Colorectal [...] as of this encounter Visit Diagnoses Diagnosis ELAN (obstructive sleep apnea)- Primary Obstructive sleep apnea (adult) (pediatric) 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, single episode, severe with psychotic features (HCC) Major depressive disorder, single episode, severe, specified as with psychotic behavior Sleep trouble Sleep disturbance, unspecified Hyperparathyroidism (HCC) Hyperparathyroidism, unspecified Chronic edema Edema HTN, goal below 140/90 Unspecified essential hypertension Need for pneumococcal vaccination Need for prophylactic vaccination against streptococcus pneumoniae (pneumococcus) Factor 5 Leiden mutation, heterozygous (HCC) Primary hypercoagulable state Chronic bilateral low back pain with bilateral sciatica Chronic pain syndrome H/O deep venous thrombosis Personal history of venous thrombosis and embolism documented in this encounter Advance Directives * [...] and were consensually agreed upon. 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
--- OUTSIDE RECORDS SUMMARY | 2025-02-20 22:51 | External Medical Summary ---
Author Name Unknown Address Unknown Organization K0G:LABORATORY [facility] [address] [place] [address] Laboratory Report Ordering Provider Test Date Status TOO ZEPEDA 11/23/2024 07:12:04 Final Observation Date Value Abnormality Reference (Units ) Status BUN 11/23/2024 07:12:04 15 6-20 (mg/dL) Final Creatinine 11/23/2024 07:12:04 0.9 0.5-1.0 (mg/dL) Final Glomerular filtration rate/1.73 sq M.predicted [Volume Rate/Area] in Serum, Plasma or Blood by Creatinine-based formula (CKD-EPI) 11/23/2024 07:12:04 78 >=60 (mL/min) Final eGFR is calculated based on the CKD-EPI 2020 equation. Sodium 11/23/2024 07:12:04 141 135-146 (m mol/L) Final Potassium 11/23/2024 07:12:04 4.5 3.5-5.1 (m mol/L) Final Cl 11/23/2024 07:12:04 102 98-107 (mm ol/L) Final CO2 11/23/2024 07:12:04 30 22-32 (mmo l/L) Final Anion gap 11/23/2024 07:12:04 9 7-15 (mmol /L) Final Glucose 11/23/2024 07:12:04 88 70-120 (mg /dL) Final Albumin 11/23/2024 07:12:04 4.0 3.8-5.0 (g /dL) Final AST (Aspartate aminotransferase) 11/23/2024 07:12:04 18 10-35 (U/L) Final Alk Phos 11/23/2024 07:12:04 96 35-130 (U/ L) Final Bilirubin, Total 11/23/2024 07:12:04 0.5 <=1 .2 (mg/dL) Final Calcium 11/23/2024 07:12:04 9.4 8.4-10.2 ( mg/dL) Final Protein 11/23/2024 07:12:04 6.8 6.0-8.3 (g /dL) Final ALT (Alanine aminotransferase) 11/23/2024 07:12:04 15 10-35 (U/L) Final [facility] Location [facility] [place] [address]
--- OUTSIDE RECORDS SUMMARY | 2025-02-20 22:51 | External Medical Summary | Summary of Care ---
Author Name Unknown Organization [facility] Address [address] [place] [address] Phone [phone] Care Team Providers Care Foam Cutting Supervisor Name Role Phone Krzysztof Pickering MD Primary Care Provider + Reason for Visit * Reason Comments Follow Up Bilateral gelsyn * Clinic-administered Medications (Within 30 days (routine)) - Authorized Specialty Diagnoses / Procedures Referred By Contac t Referred To Contact Diagnoses Bilateral primary osteoarthritis of knee Procedures ID GEL-SYN INJECTION 0.1 MG Ramu Colby DO [address] [place] [address] Phone: tel: fax: Ramu Colby DO [address] [place] [address] Phone: tel: fax: Referral ID Status Reason Start Date Expiration Date V isits Requested Visits Authorized [id number] Authorized Precert 11/08/2024 10/04/2099 [id number] Encounter Details Date Type Department Care Team (Latest Contact Info) Description 11/23/2024 8:00 AM EST Office Visit Orthopaedics [facility] [address] [place] [address] Ramu Colby DO [address] [place] [address] Primary osteoarthritis of both knees* Allergies Active Allergy Reactions Criticality Noted Date Comments Latex 08/16/2010 Takes skin off with the bandaid Bacitracin-Polymyxin B Other (Please comment) 05/22/2021 Redness and film around edge when applied to skin Nylon 12 07/04/2010 Infection suture line Adhesive Tape 05/14/2007 Bandaids has to use Cloth tape. documented as of this encounter (statuses as of 11/23/2024) Medications Folic Acid 5 MG CAPS Take [...] by mouth. 1 tab twice daily Active Furosemide 20 MG Oral Tablet (Lasix) TAKE 1 TABLET BY MOUTH DAILY FOR FLUID ACCUMULATION OR WEIGHT GAIN. 90 Tablet 1 4 Active Warfarin Sodium 10 MG Oral Tablet [...] NOSTRIL DAILY. 48 mL 1 4 Active oxyCODONE-Acetam inophen 10-325 MG Oral Tablet (Percocet)Indica tions:Chronic pain syndrome Take 1 Tablet by mouth every 6 hours as needed for Pain, Severe. Ongoing therapy 120 Tablet 5 Active Hospital, Clinic, or Other Facility Administered Medication Ordered Dose Route Frequency Start Date End Date Status sodium hyaluronate (Gelsyn-3) 16.8 MG/2ML inj 16.8 mgIndications:Primary osteoarthritis of both knees 16.8 mg IX ONCE 11/23/2024 11/23/2024 Ended sodium hyaluronate (Gelsyn-3) 16.8 MG/2ML inj 16.8 mgIndications:Primary osteoarthritis of both knees 16.8 mg IX ONCE 11/23/2024 11/23/2024 Ended documented as of this encounter (statuses as of 11/23/2024) Active Problems Problem Noted Date Diagnosed Date [...] cwp, nocturnal ox 08/21/11 CPAP 5-15 cwp [facility] MEDICATION USE AGREEMENT 12/30/2006 Overview (02/20/2009): 02/06/09: Urine screen negative of oxycodone Spondylolisthesis 08/19/2006 Allergic rhinitis due to pollen 01/24/2004 Heterozygous MTHFR mutation C677T documented as of this encounter (statuses as of 11/23/2024) Resolved Problems Problem Noted Date Diagnosed Date [...] Nocturnal oxygen desaturation 07/25/2013 04/19/2019 [facility] OTHER*[id number] 02/04/2013 07/25/2013 Obesity, morbid (more than 1 00 lbs over ideal weight or BMI > 40) 08/09/2012 07/09/2017 Overview: Per Obesity protocol #1 BMI 70 and over, adult 12/04/201111/28 Obstructive sleep apnea syndrome 09/04/2011 10/02/2011 Genetic Sleep Disorder Resea [facility] Other*[id number] 07/07/2011 05/07/2016 Morbid Obesity, BMI > 40 05/04/201105/2011 Adult body mass index 60.0-69.9 02/02/2011 12/04/2011 Morbid Obesity, BMI > 40 11/20/201010/2010 [employer] Research*[id number] 07/08/2010 12/18/2015 Overview (12/18/2015): 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 Research*[id number] 03/19/2010 06/26/2010 [facility] OTHER*[id number] 03/19/2010 03/10/2024 Overview (07/25/2013): Completed about 09/2010 [...] (01/01/2010): Per Obesity Taxonomy Heterozygous MTHFR mutation [id number] 07/28/2017 documented as of this encounter (statuses as of 11/23/2024) Immunizations Name Administration Dates Next Due COVID-19 [...] Entry Date Author No 06/22/2021 5:50 PM OCTAVIAT Mary Ellen Cardoza RN documented in this encounter Progress Notes * Ramu Colby, DO - 11/23/2024 8:00 AM EST Amaya Monteiro [id number] INJECTION NOTE Amaya Monteiro is a 54 year old female who presents to [facility] Medicine for Bilateral knee injections. Gelsyn #2. She has had both steroids and Gelsyn injections and she gets approximately 2-3 months of benefit TODAY: Here for Gelsyn #2. 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 18 g 0 Spacer/Aero-Holding Chambers Device Use with inhaler. [...] 2,000 Units by mouth in the morning. Calcium Citrate-Vitamin D3 315-6.25 MG-MCG Oral Tablet (Citracal Maximum) Take by mouth. 1 tab twice daily Furosemide 20 MG Oral Tablet (Lasix) TAKE 1 TABLET BY MOUTH DAILY FOR FLUID ACCUMULATION OR WEIGHT GAIN. 90 Tablet 1 Warfarin Sodium 10 MG Oral Tablet (Coumadin) [...] INTO EACH NOSTRIL DAILY. 48 mL 1 oxyCODONE-Acetaminophen 10-325 MG Oral Tablet (Percocet) Take 1 Tablet by mouth every 6 hours as needed for Pain, Severe. Ongoing therapy 120 Tablet 0 No current facility-administered medications for this visit. Hemoglobin AIC Results: Lab Results Component Value Date/Time HEMOGLOBIN A1C - [facility] 5.6 11/10/2020 08:21 AM HEMOGLOBIN A1C - [facility] 5.5 12/19/2019 09:07 AM HEMOGLOBIN A1C - [facility] 5.2 2017 01:37 PM HEMOGLOBIN A1C - [facility] 4.9 08/22/2015 07:42 AM Physical exam Gait and Station: moderately antalgic Assessment and Plan: We will do injections. Please see procedure note. Follow up next week. For Gelsyn #3 Primary osteoarthritis of both knees (Primary) - sodium hyaluronate (Gelsyn-3) 16.8 MG/2ML inj 16.8 mg - sodium hyaluronate (Gelsyn-3) 16.8 MG/2ML inj 16.8 mg - POINT OF CARE US MAJOR JOINT INJECTION, ORTHO Ramu Colby DO, MBA, FAAFP, RMSK [facility] Sports Radiation Control Health PhysicistSchool Psychologist Primary Care Sports Medicine Team Physician [facility] Office locations: Orthopaedics [address] [address] [address] This chart was completed in part utilizing [employer] Speech Voice Recognition Software. Grammatical errors, random word insertions, pronoun errors, and incomplete sentences are an occasional consequence of this system due to software limitations, ambient noise, and hardware issues. Any formal questions or concerns about the content, text, or information contained within the body of this dictation should be directly addressed to the provider for clarification. PROCEDURE NOTE: KNEE INJECTION - ULTRASOUND Laterality: Bilateral Time out: Prior to injection, a time out was called to confirm the administration of appropriate medicine, patient name, procedure and confirm to the best of our ability and knowledge the presence of any necessary risks and benefits. Patient verbalized understanding. Ultrasound utilized to guide injection. During the procedure, the needle was visualized in plane and was advanced with continuous ultrasound guidance to the appropriate anatomical landmark as described in the procedure. Ultrasound required due to high risk for complications without ultrasound guidance (risk for neurovascular damage) and patient size (obese) Sterile technique applied using gloves, chlorhexadine, and alcohol swabs. Ethyl chloride spray for local anesthetic. Knee injected at superior-lateral recess 3.5 inch, 22 gauge needle. Injected with Gelsyn. Patient tolerated procedure with no significant bleeding or adverse reaction. Patient instructed to call or return to clinic for fever, warmth, unusual redness at injection sitefor potential infection. Patient also advised regarding post-procedural pain. Ramu Colby DO Sports Medicine Primary Care Orthopaedics [address] [address] documented in this encounter Nursing Notes * Debbie Ramires MED ASSIST - 11/23/2024 8:11 AM EST Repeat bilateral knee gelsyn. documented in this encounter Plan of Treatment Upcoming Encounters Date Type Department Care Team (Late st Contact Info) Description 11/24/2024 7:15 AM EST Cardiac Studies Cardiac Studies, [address] [place] [address] 11/30/2024 8:45 AM EST Office Visit Orthopaedics [address] [place] [address] Ramu Colby, [address] [place] [address] 12/08/2024 7:30 AM EST [facility] [address] [facility] [place] [phone] [facility] [address] [place] [address] 01/09/2025 10:20 AM EDT Office Visit General Internal Medicine [facility] [place] [address] Krzysztof Pickering MD [address] [facility] [place] [address] 01/13/2025 7:15 AM EDT Imaging Radiology [address] [place] [phone] 05/15/2025 10:00 AM EDT Office Visit Endocrinology [address] [place] [phone] Kylee Cox MD [address] [place] [address] [id number] Scheduled Orders Name Type Priority Associated Diagnoses Orde r Schedule POINT OF CARE US MAJOR JOINT INJECTION, ORTHO Medical Imaging Routine Primary osteoarthritis of both knees Ordered: 11/23/2024 Scheduled Procedures Name Priority Associated Diagnoses Date/Ti me COLONOSCOPY FLEXIBLE PROXIMA L DIAGNOSTIC Recall History of colonic polyps Health Maintenance Due Date Last Done Comments Cologuard 01/06/2013 Fecal Occult Blood Test 01/06/2013 Sigmoidoscopy 01/06/2013 Pneumococcal Vaccine: 50+ Years (3 of 3 - PCV20 or PCV21) 07/25/2018 07/25/2013, 07/25/2013 COVID-19 Vaccine (4 - 2024-25 season) 2024 02/16/2021, 02/08/2021, 01/19/2021 Depression Monitoring 09/08/2024 09/08/2023 Mammogram 01/11/2025 01/12/2024, 04/0 06/2024, 12/29/2022, Additional history exists GFR 03/21/2025 03/21/2024, 06/0 03/2024, 11/04/2023, Additional history exists TSH 03/21/2025 03/21/2024, 10/07, 10/27/2022, Additional history exists Albumin/Creatinine Ratio 04/11/2025 04/11/2022, 04/04 Pap Smear 09/03/2025 09/03/2022, 040 11/2018, 11/04/2016, Additional history exists Colonoscopy 12/10/2026 12/11/2023, 030 05/2024, 02/17/2018 Colorectal Cancer Screening 12/10/2026 Diabetes Screening 03/21/2027 03/21/2024, 0 03/10/2024, 11/04/2023, Additional history exists DTap/Tdap Vaccines (4 - Td or Tdap) 03/24/2027 03/24/2017, 03/24/2017, 08/13/2009 Cervical Cancer Screening 09/03/2027 HPV/Co-Test 09/03/2027 09/03/2022 Lipid Panel 11/04/2028 11/04/2023, 10/06, 10/07/2021, Additional history exists Zoster Vaccines Completed 12/21/2020, [...] as of this encounter Visit Diagnoses Diagnosis Primary osteoarthritis of both knees- Primary Primary localized osteoarthrosis, lower leg documented in this encounter Administered Medications Inactive Administered Medications - up to 3 most recent administrations Medication Order MAR Action Action Date Dose Rate Site sodium hyaluronate (Gelsyn-3) 16.8 MG/2ML inj 16.8 mg 16.8 mg, Intra-Articular, ONCE, On Thu11/23/24 at 0845, For 1 doseIndications:Primary osteoarthritis of both knees Given 11/23/2024 8:25 AM EST 16.8 mg Knee Right sodium hyaluronate (Gelsyn-3) 16.8 MG/2ML inj 16.8 mg 16.8 mg, Intra-Articular, ONCE, On Thu11/23/24 at 0845, For 1 doseIndications:Primary osteoarthritis of both knees Given 11/23/2024 8:25 AM EST 16.8 mg Knee Left documented in this encounter Advance Directives * [...] and were consensually agreed upon. Care Teams Foam Cutting Supervisor Relationship Specialty Start Date End Date Krzysztof Pickering MD [address] [facility] [place] [address] PCP - General Internal Medicine 06/19/16 documented as of this encounter
--- OUTSIDE RECORDS SUMMARY | 2025-02-20 22:51 | External Medical Summary ---
Author Name Unknown Address Unknown Organization K01:LABORATORY C - [address] [place] [address] Laboratory Report Ordering Provider Test Date Status TOO ZEPEDA 11/23/2024 07:12:04 Final Observation Date Value Abnormality Reference (Units ) Status Iron 11/23/2024 07:12:04 117 33-151 (ug /dL) Final Iron-binding capacity 11/23/2024 07:12:04 371 250-425 (ug/dL) Final Transferrin Sat % 11/23/2024 07:12:04 32 15 -55 (%) Final Performing Location [facility] [address] [facility] [address]
--- OUTSIDE RECORDS SUMMARY | 2025-02-20 22:51 | External Medical Summary | Summary of Care ---
Author Name Unknown Organization [facility] Address [address] [place] [address] Phone [phone] Care Team Providers Care Broadcast Chief Engineer Name Role Phone Krzysztof Pickering MD Primary Care Provider + Reason for Visit * Reason Comments Follow Up Bilateral knee Encounter Details Date Type Department Care Team (Latest Contact Info) Description 11/30/2024 8:45 AM EST Office Visit Orthopaedics [facility] [address] [place] [phone] Ramu Colby, [address] [place] [phone] Primary osteoarthritis of both knees* Allergies Active Allergy Reactions Criticality Noted Date Comments Latex 08/16/2010 Takes skin off with the bandaid Bacitracin-Polymyxin B Other (Please comment) 05/22/2021 Redness and film around edge when applied to skin Nylon 12 07/04/2010 Infection suture line Adhesive Tape 05/14/2007 Bandaids has to use Cloth tape. documented as of this encounter (statuses as of 11/30/2024) Medications Folic Acid 5 MG CAPS Take [...] of both knees 16.8 mg IX ONCE 11/30/2024 11/30/2024 Ended sodium hyaluronate (Gelsyn-3) 16.8 MG/2ML inj 16.8 mgIndications:Primary osteoarthritis of both knees 16.8 mg IX ONCE 11/30/2024 11/30/2024 Ended documented as of this encounter (statuses as of 11/30/2024) Active Problems Problem Noted Date Diagnosed Date [...] cwp, nocturnal ox 08/21/11 CPAP 5-15 cwp [facility] MEDICATION USE AGREEMENT 12/30/2006 Overview (02/20/2009): 02/06/09: Urine screen negative of oxycodone Spondylolisthesis 08/19/2006 Allergic rhinitis due to pollen 01/24/2004 Heterozygous MTHFR mutation C677T documented as of this encounter (statuses as of 11/30/2024) Resolved Problems Problem Noted Date Diagnosed Date [...] depression 07/28/2017 8 BMI 60.0-69.9, adult 07/06/2017 08/18/ 018 Overview: Per Obesity protocol #1 Deep [...] Nocturnal oxygen desaturation 07/25/2013 04/19/2019 [facility] OTHER*[id number] 02/04/2013 07/25/2013 Obesity, morbid (more than 1 00 lbs over ideal weight or BMI > 40) 08/09/2012 07/09/2017 Overview: Per Obesity protocol #1 BMI 70 and over, adult 12/04/201111/28 Obstructive sleep apnea syndrome 09/04/2011 10/02/2011 Genetic Sleep Disorder Resea [facility] Other*[id number] 07/07/2011 05/07/2016 Morbid Obesity, BMI > 40 05/04/201105/2011 Adult body mass index 60.0-69.9 02/02/2011 12/04/2011 Morbid Obesity, BMI > 40 11/20/201010/2010 [employer] Research*[id number] 07/08/2010 12/18/2015 Overview (12/18/2015): 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 Research*[id number] 03/19/2010 06/26/2010 [facility] OTHER*[id number] 03/19/2010 03/10/2024 Overview (07/25/2013): Completed about 09/2010 [...] (01/01/2010): Per Obesity Taxonomy Heterozygous MTHFR mutation [id number] 07/28/2017 documented as of this encounter (statuses as of 11/30/2024) Immunizations Name Administration Dates Next Due COVID-19 [...] this encounter Progress Notes * Ramu Colby, - 11/30/2024 8:45 AM EST Amaya Monteiro [id number] INJECTION NOTE Amaya Monteiro is a 54 year old female who presents to [facility] Sports Medicine for Bilateral knee injections. Gelsyn #3. She has had both steroids and Gelsyn injections and she gets approximately 2-3 months of benefit TODAY: Here for Gelsyn #3. Patient Active Problem List Diagnosis Allergic rhinitis [...] and Station: moderately antalgic Assessment and Plan: Will do injections. Please see procedure note. Follow up as needed Primary osteoarthritis of both knees (Primary) - sodium hyaluronate (Gelsyn-3) 16.8 MG/2ML inj 16.8 mg - sodium hyaluronate (Gelsyn-3) 16.8 MG/2ML inj 16.8 mg - POINT OF CARE US MAJOR JOINT INJECTION, ORTHO Ramu Colby DO, MBA, FAAFP, RMSK [facility] Sports Fire Behavior AnalystAnalytical Engineer Primary Care Sports Medicine Team Physician [facility] Office locations: Orthopaedics [place] [address] [address] This chart was completed in part utilizing [employer] Speech Voice Recognition Software. Grammatical errors, random [...] Colby DO Sports Medicine Primary Care Orthopaedics [facility] [address] [facility] [address] documented in this encounter Nursing Notes * Debbie Ramires MED ASSIST - 11/30/2024 8:07 AM EST Repeat bilateral knee, 3rd gelsyn documented in this encounter Plan of Treatment Upcoming Encounters Date Type Department Care Team (Late st Contact Info) Description 12/08/2024 7:30 AM EST Anticoagulation Pharmacy, [facility] [address] [place] [phone] [place], [facility] [address] [place] [address] 01/09/2025 10:20 AM EDT Office Visit General Internal Medicine [facility] [address] [place] [address] Krzysztof Pickering MD [address] [place] [address] 01/13/2025 7:15 AM EDT Imaging Radiology [facility] [address] [place] [address] 05/15/2025 10:00 AM EDT Office Visit Endocrinology [address] [place] [phone] Kylee Cox MD [address] [place] [address] Scheduled Orders Name Type Priority Associated Diagnoses Orde r Schedule POINT OF CARE US MAJOR JOINT INJECTION, ORTHO Medical Imaging Routine Primary osteoarthritis of both knees Ordered: 11/30/2024 Scheduled Procedures Name Priority Associated Diagnoses Date/Ti [...] 16.8 mg 16.8 mg, Intra-Articular, ONCE, On Thu11/30/24 at 0845, For 1 doseIndications:Primary osteoarthritis of both knees Given 11/30/2024 8:20 AM EST 16.8 mg Knee Right sodium hyaluronate (Gelsyn-3) 16.8 MG/2ML inj 16.8 mg 16.8 mg, Intra-Articular, ONCE, On Thu11/30/24 at 0845, For 1 doseIndications:Primary osteoarthritis of both knees Given 11/30/2024 8:20 AM EST 16.8 mg Knee Left documented [...] and were consensually agreed upon. Care Teams Broadcast Chief Engineer Relationship Specialty Start Date End Date Krzysztof Pickering MD [address] [place] [address] PCP - General Internal Medicine 06/19/16 documented as of this encounter
--- OUTSIDE RECORDS SUMMARY | 2025-02-20 22:51 | External Medical Summary | Summary of Care ---
Author Name Unknown Organization [facility] Address [address] [place] [address] Phone [phone] Care Team Providers Care Software Applications Designer Name Role Phone Krzysztof Pickering MD Primary Care Provider + Reason for Visit * Reason Comments Follow Up Bilateral knee Encounter Details Date Type Department Care Team (Latest Contact Info) Description 11/30/2024 8:45 AM EST Office Visit Orthopaedics [facility] [address] [place] [phone] Ramu Colby, [address] [place] [phone] Primary osteoarthritis of both knees* Allergies Active [...] cwp, nocturnal ox 08/21/11 CPAP 5-15 cwp [facility] MEDICATION USE AGREEMENT 12/30/2006 [...] Nocturnal oxygen desaturation 07/25/2013 04/19/2019 [facility] OTHER*[id number] 02/04/2013 07/25/2013 Obesity, morbid (more than 1 00 lbs over ideal weight or BMI > 40) 08/09/2012 07/09/2017 Overview: Per Obesity protocol #1 BMI 70 and over, adult 12/04/201111/28 Obstructive sleep apnea syndrome 09/04/2011 10/02/2011 Genetic Sleep Disorder Resea [facility] Other*[id number] 07/07/2011 05/07/2016 Morbid Obesity, BMI > 40 05/04/201105/2011 Adult body mass index 60.0-69.9 02/02/2011 12/04/2011 Morbid Obesity, BMI > 40 11/20/201010/2010 [employer] Research*[id number] 07/08/2010 12/18/2015 Overview (12/18/2015): 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 Research*[id number] 03/19/2010 06/26/2010 [facility] OTHER*[id number] 03/19/2010 03/10/2024 Overview (07/25/2013): Completed about 09/2010 [...] (01/01/2010): Per Obesity Taxonomy Heterozygous MTHFR mutation D6179I 07/28/2017 documented as of this encounter (statuses [...] - 11/30/2024 8:45 AM EST Amaya Monteiro [id number] INJECTION NOTE Amaya Monteiro is a 54 year old female who presents to [facility] Sports Medicine for Bilateral knee injections. Gelsyn [...] ORTHO Ramu Colby DO, MBA, FAAFP, RMSK [facility] Sports Patient Clerical AssistantDouble Corner Cutter Primary Care Sports Medicine Team Physician [facility] Office locations: Orthopaedics [place] [address] [address] This chart was completed in part utilizing [employer] Speech Voice Recognition Software. Grammatical errors, random [...] Colby DO Sports Medicine Primary Care Orthopaedics [facility] [address] [facility] [address] documented in this encounter Nursing Notes * Debbie Ramires MED ASSIST - 11/30/2024 8:07 AM EST Repeat bilateral knee, 3rd gelsyn documented in this encounter Plan of Treatment Upcoming Encounters Date Type Department Care Team (Late st Contact Info) Description 12/08/2024 7:30 AM EST Anticoagulation Pharmacy, [facility] [address] [place] [phone] [place], [facility] [address] [place] [address] 01/09/2025 10:20 AM EDT Office Visit General Internal Medicine [facility] [address] [place] [address] Krzysztof Pickering MD [address] [place] [address] 01/13/2025 7:15 AM EDT Imaging Radiology [facility] [address] [place] [address] 05/15/2025 10:00 AM EDT Office [...] and were consensually agreed upon. Care Teams Software Applications Designer Relationship Specialty Start Date End Date Krzysztof Pickering MD [address] [place] [address] PCP - General Internal Medicine 06/19/16 documented as of this encounter
--- OUTSIDE RECORDS SUMMARY | 2025-02-20 22:51 | External Medical Summary | Summary of Care ---
Author Name Unknown Organization [facility] Address [address] [place] [address] Phone [phone] Care Team Providers Care Band Nailer Name Role Phone Krzysztof Gage MD Primary Care Provider + Reason for Referral * Medication Prior Authorization - Closed Specialty Diagnoses / Procedures Referred By Yosvany potter Referred To Contact Diagnoses Chronic pain syndrome Krzysztof Gage MD [facility] [place] [address] Phone: tel: fax: Referral ID Status Reason Start Date Expiration Date Visits Re quested Visits Authorized [id number] Closed [phone] Reason for Visit * Reason Onset Date Comments Medication Refill 11/29/2024 Encounter Details Date Type Department Care Team (Late st Contact Info) Description 11/29/2024 Refill General Internal Medicine [facility] [place] [address] [place] [address] Krzysztof Gage MD 200 [facility] [place] [address] Chronic pain syndrome Allergies Active Allergy Reactions Criticality Noted Date Comments Latex 08/16/2010 Takes skin off with the bandaid Bacitracin-Polymyxin B Other (Please comment) 05/22/2021 Redness and film around edge when applied to skin Nylon 12 07/04/2010 Infection suture line Adhesive Tape 05/14/2007 Bandaids has to use Cloth tape. documented as of this encounter (statuses as of 12/01/2024) Medications Folic Acid 5 MG CAPS Take [...] WEIGHT GAIN. 90 Tablet 1 05/11/20 24 Active Warfarin Sodium 10 MG Oral Tablet [...] DAILY. 48 mL 1 09/23/20 24 Active oxyCODONE-Acetam inophen 10-325 MG Oral Tablet (Percocet)Indica tions:Chronic pain syndrome Take 1 Tablet by mouth every 6 hours as needed for Pain, Severe. Ongoing therapy 120 Tablet 12/01/19 25 Active oxyCODONE-Acetam inophen 10-325 MG Oral Tablet (Percocet)Indica tions:Chronic pain syndrome Take 1 Tablet by mouth every 6 hours as needed for Pain, Severe. Ongoing therapy 120 Tablet 11/02/19 25 025 Discontin ued(Refil l) documented as of this encounter (statuses as of 12/01/2024) Active Problems Problem Noted Date Diagnosed Date [...] cwp, nocturnal ox 08/21/11 CPAP 5-15 cwp [facility] MEDICATION USE AGREEMENT 12/30/2006 Overview (02/20/2009): 02/06/09: Urine screen negative of oxycodone Spondylolisthesis 08/19/2006 Allergic rhinitis due to pollen 01/24/2004 Heterozygous MTHFR mutation [id number] documented as of this encounter (statuses as of 12/01/2024) Resolved Problems Problem Noted Date Diagnosed Date [...] Nocturnal oxygen desaturation 07/25/2013 04/19/2019 [facility] OTHER*[id number] 02/04/2013 07/25/2013 Obesity, morbid (more than 1 00 lbs over ideal weight or BMI > 40) 08/09/2012 07/09/2017 Overview: Per Obesity protocol #1 BMI 70 and over, adult 12/04/201111/28 Obstructive sleep apnea syndrome 09/04/2011 10/02/2011 Genetic Sleep Disorder [facility] Other*[id number] 07/07/2011 05/07/2016 Morbid Obesity, BMI > 40 05/04/201105/2011 Adult body mass index 60.0-69.9 02/02/2011 12/04/2011 Morbid Obesity, BMI > 40 11/20/201010/2010 [facility]*[id number] 07/08/2010 12/18/2015 Overview (12/18/2015): 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 Research*[id number] 03/19/2010 06/26/2010 [facility] OTHER*[id number] 03/19/2010 03/10/2024 Overview (07/25/2013): Completed about 09/2010 [...] (01/01/2010): Per Obesity Taxonomy Heterozygous MTHFR mutation [id number] 07/28/2017 documented as of this encounter (statuses as of 12/01/2024) Immunizations Name Administration Dates Next Due COVID-19 [...] 06/22/2021 5:50 PM EDMary Ellen Amin RN * Because of a physical, mental, [...] Entry Date Author No 06/22/2021 5:50 PM EDMary Ellen Amin RN documented in this encounter Miscellaneous Notes * Telephone Encounter - Krzysztof Gage MD - 12/01/2024 1:36 PM ESTSigned Prescriptions: Disp Refills oxyCODONE-Acetaminophen 10-325 MG Oral Tab*120 Ta*0 Sig: Take 1 Tablet by mouth every 6 hours as needed for Pain, Severe. Ongoing therapy Authorizing Provider: KRZYSZTOF GAGE * Telephone Encounter - Janice Jean [facility] - 11/29/2024 10:35 AM EST Pending Prescriptions: Disp Refills oxyCODONE-Acetaminophen 10-325 MG Oral Tab*120 Ta*0 Sig: Take 1 Tablet by mouth every 6 hours as needed for Pain, Severe. Ongoing therapy * Telephone Encounter - Janice Jean [facility] - 11/29/2024 10:33 AM EST I have reviewed the patient’s controlled substance dispensing history in the Prescription Drug Monitoring Program in compliance with the [facility] regulations before prescribing a controlled substance. PDMP checked on 11/29/2024. Pending Prescriptions: Disp Refills oxyCODONE-Acetaminophen 10-325 MG Oral Ta*120 Ta*0 Sig: Take 1 Tablet by mouth every 6 hours as needed for Pain, Severe. Ongoing therapy Last Visit: 10/11/2024 (in office), Visit date not found (telemedicine) Next Visit: 01/09/2025 Date medication was last filled: 11/02/2024 Date medication is due for refill: 12/01/2024 Pharmacy: [id number] [place] [address] Is this request for a controlled substance? Yes and Urine Drug Screen Not completed Toxicology results: Results for orders placed [...] in Results Review. Please approve if appropriate. Jaince Jean PharmD Clinical Pharmacist 11/29/2024 10:34 AM documented in this encounter Plan of Treatment Upcoming Encounters Date Type Department Care Team (Late st Contact Info) Description 12/08/2024 7:30 AM EST Anticoagulation Pharmacy, [facility] [address] [place] [phone] [place], [facility] [address] [place] [address] 01/09/2025 10:20 AM EDT Office Visit General Internal Medicine [facility] 200 [facility] [place] [address] Krzysztof Gage MD 200 [facility] [place] [address] 01/13/2025 7:15 AM EDT Imaging Radiology [facility] [address] [place] [phone] 05/15/2025 10:00 AM EDT Office Visit Endocrinology [...] 11/04/2023, Additional history exists Colonoscopy 12/10/2026 12/11/2023, 0 05/2024, 02/17/2018 Colorectal Cancer Screening 12/10/2026 DTap/Tdap [...] and were consensually agreed upon. Care Teams Band Nailer Relationship Specialty Start Date End Date Krzysztof Gage MD 200 [place] [address] PCP - General Internal Medicine 06/19/16 documented as of this encounter
--- OUTSIDE RECORDS SUMMARY | 2025-02-20 22:51 | External Medical Summary | Summary of Care ---
Author Name Unknown Organization [facility] Address [address] [place] [address] Phone [phone] Care Team Providers Care Take Up Operator Name Role Phone Krzysztof Pickering MD Primary Care Provider + Reason for Visit * Reason Comments Follow Up Bilateral gelsyn * Clinic-administered Medications (Within 30 days (routine)) - Authorized Specialty Diagnoses / Procedures Referred By Contac t Referred To Contact Diagnoses Bilateral primary osteoarthritis of knee Procedures CO GEL-SYN INJECTION 0.1 MG Ramu Colby DO [address] [place] [address] Phone: tel: fax: Ramu Colby DO [address] [place] [address] Phone: tel: fax: Referral ID Status Reason Start Date Expiration Date V isits Requested Visits Authorized [id number] Authorized Precert 11/08/2024 10/04/[phone] Encounter Details Date Type Department Care Team (Latest Contact Info) Description 11/23/2024 8:00 AM EST Office Visit Orthopaedics [facility] [address] [place] [address] Ramu [...] cwp, nocturnal ox 08/21/11 CPAP 5-15 cwp [facility] MEDICATION USE AGREEMENT 12/30/2006 Overview [...] Nocturnal oxygen desaturation 07/25/2013 04/19/2019 [facility] OTHER*[id number] 02/04/2013 07/25/2013 Obesity, morbid (more than 1 00 lbs over ideal weight or BMI > 40) 08/09/2012 07/09/2017 Overview: Per Obesity protocol #1 BMI 70 and over, adult 12/04/201111/28 Obstructive sleep apnea syndrome 09/04/2011 10/02/2011 Genetic Sleep Disorder [facility] Other*[id number] 07/07/2011 05/07/2016 Morbid Obesity, BMI > 40 05/04/201105/2011 Adult body mass index 60.0-69.9 02/02/2011 12/04/2011 Morbid Obesity, BMI > 40 11/20/201010/2010 [facility]*[id number] 07/08/2010 12/18/2015 Overview (12/18/2015): 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 Research*[id number] 03/19/2010 06/26/2010 [facility] OTHER*[id number] 03/19/2010 03/10/2024 Overview (07/25/2013): Completed about 09/2010 [...] (01/01/2010): Per Obesity Taxonomy Heterozygous MTHFR mutation [id number] 07/28/2017 documented as of this encounter (statuses [...] - 11/23/2024 8:00 AM EST Amaya Monteiro [id number] INJECTION NOTE Amaya Monteiro is a 54 year old female who presents to [facility] for Bilateral knee injections. Gelsyn [...] disorder, single episode, severe with psychotic features (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 Grammatical errors, random [...] Colby DO Sports Medicine Primary Care Orthopaedics [address] [address] documented in this encounter Nursing Notes * Debbie Ramires MED ASSIST - 11/23/2024 8:11 AM EST Repeat bilateral knee gelsyn. documented in this encounter Plan of Treatment Upcoming Encounters Date Type Department Care Team (Late st Contact Info) Description 11/24/2024 7:15 AM EST Cardiac Studies Cardiac Studies, [address] [place] [address] 11/30/2024 8:45 AM EST Office Visit Orthopaedics [address] [place] [address] Ramu Colby, [address] [place] [address] 12/08/2024 7:30 AM EST [facility], [place] [facility] [address] [facility] [place] [phone] [facility] [address] [place] [address] 01/09/2025 10:20 AM EDT Office Visit General Internal Medicine [facility] 200 [facility] [place] [address] Krzysztof Pickering MD 200 [facility] [place] [address] 01/13/2025 7:15 AM EDT Imaging Radiology [address] [place] [phone] 05/15/2025 10:00 AM EDT Office Visit Endocrinology [address] [place] [phone] Kylee Cox MD [address] [place] [address] [id number] Scheduled Orders Name Type Priority Associated Diagnoses [...] and were consensually agreed upon. Care Teams Take Up Operator Relationship Specialty Start Date End Date Krzysztof Pickering MD 200 [place] [address] PCP - General Internal Medicine 06/19/16 documented as of this encounter
--- OUTSIDE RECORDS SUMMARY | 2025-02-20 22:51 | External Medical Summary | Summary of Care ---
Author Name Unknown Organization [facility] Address [address] [place] [address] Phone [phone] Care Team Providers Care Staff Midwife Name Role Phone Krzysztof Pickering MD Primary Care Provider + Reason for Visit * Reason Comments Outpatient Testing Encounter Details Date Type Department Care Team (Latest Contact Info) Description 11/23/2024 7:20 AM EST Laboratory Laboratory, 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; HTN, goal below 140/90; Need for prophylactic vaccination and inoculation against influenza; Current severe episode of major depressive disorder with psychotic features, unspecified whether recurrent (HCC); Encounter for long-term (current) use of medications Allergies Active Allergy Reactions Criticality Noted Date [...] cwp, nocturnal ox 08/21/11 CPAP 5-15 cwp [facility] MEDICATION USE AGREEMENT 12/30/2006 Overview [...] Nocturnal oxygen desaturation 07/25/2013 04/19/2019 [facility] OTHER*[id number] 02/04/2013 07/25/2013 Obesity, morbid (more than 1 00 lbs over ideal weight or BMI > 40) 08/09/2012 07/09/2017 Overview: Per Obesity protocol #1 BMI 70 and over, adult 12/04/201111/28 Obstructive sleep apnea syndrome 09/04/2011 10/02/2011 Genetic Sleep Disorder [facility] Other*[id number] 07/07/2011 05/07/2016 Morbid Obesity, BMI > 40 05/04/201105/2011 Adult body mass index 60.0-69.9 02/02/2011 12/04/2011 Morbid Obesity, BMI > 40 11/20/201010/2010 [facility]*[id number] 07/08/2010 12/18/2015 Overview (12/18/2015): 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 Research*[id number] 03/19/2010 06/26/2010 [facility] OTHER*[id number] 03/19/2010 03/10/2024 Overview (07/25/2013): Completed about 09/2010 [...] (01/01/2010): Per Obesity Taxonomy Heterozygous MTHFR mutation [id number] 07/28/2017 documented as of this encounter (statuses [...] Assessment Author No 06/22/2021 5:50 PM EDT Nicolella , Mary Ellen K, RN * Because of a physical, mental, [...] Ellen Cardoza RN documented in this encounter Plan of Treatment Upcoming Encounters Date Type Department Care Team (Late st Contact Info) Description 11/23/2024 8:00 AM EST Office Visit Orthopaedics [facility] [address] [place] [address] Ramu Colby, [address] [place] [address] 11/24/2024 7:15 AM EST Cardiac Studies Cardiac Studies, [facility] [address] [place] [address] 11/30/2024 8:45 AM EST Office Visit Orthopaedics [facility] [address] [place] [address] Ramu Colby, [address] [place] [address] 12/08/2024 7:30 AM EST Anticoagulation Pharmacy, [place] [address] [place] [phone] [facility] [address] [facility] [place] [address] 01/09/2025 10:20 AM EDT Office Visit General Internal Medicine [facility] 200 [place] [address] Krzysztof Pickering MD [address] [place] [address] 01/13/2025 7:15 AM EDT Imaging Radiology [facility] [place] [address] [place] [address] 05/15/2025 10:00 AM EDT Office Visit Endocrinology [address] [place] 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 11/23/2024 7:12 AM EST COMPREHENSIVE METABOLIC PANEL Lab Routine HTN, goal below 140/90 11/23/2024 7:12 AM EST LIPID PANEL WITH DIRECT LDL IF TG IS HIGH Lab Routine HTN, goal below 140/90 11/23/2024 7:12 AM EST CBC WITH WBC DIFFERENTIAL Lab Routine Need for prophylactic vaccination and inoculation against influenza Current severe episode of major depressive disorder with psychotic features, unspecified whether recurrent (HCC) HTN, goal below 140/90 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 Hyperparathyroidism (HCC) Encounter for long-term (current) use of medications 11/23/2024 7:12 AM EST IRON SCREEN, INCLUDING TIBC Lab Routine Encounter for long-term (current) use of medications 11/23/2024 7:12 AM EST FERRITIN Lab Routine Encounter for long-term (current) use of medications 11/23/2024 7:12 AM EST CBC Lab Routine Need for prophylactic vaccination and inoculation against influenza Current severe episode of major depressive disorder with psychotic features, unspecified whether recurrent (HCC) HTN, goal below 140/90 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 Hyperparathyroidism (HCC) Encounter for long-term (current) use of medications 11/23/2024 7:12 AM EST DIFFERENTIAL, AUTOMATED Lab Routine Need for prophylactic vaccination and inoculation against influenza Current severe episode of major depressive disorder with psychotic features, unspecified whether recurrent (HCC) HTN, goal below 140/90 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 Hyperparathyroidism (HCC) Encounter for long-term (current) use of medications 11/23/2024 7:12 AM EST PHOSPHORUS Lab Routine Hyperparathyroidism (HCC) Vitamin D deficiency History of sleeve gastrectomy 11/23/2024 7:12 AM EST Scheduled Procedures Name Priority Associated Diagnoses Date/Ti [...] 12/29/2022, Additional history exists GFR 03/21/2025 03/21/2024, 0 03/2024, 11/04/2023, Additional history exists TSH 03/21/2025 03/21/2024, 10/07, 10/27/2022, Additional history exists Albumin/Creatinine Ratio 04/11/2025 04/11/2022, 04/04 Pap Smear 09/03/2025 09/03/2022, 04/0 11/2018, 11/04/2016, Additional history exists Colonoscopy 12/10/2026 12/11/2023, 0 05/2024, 02/17/2018 Colorectal Cancer Screening 12/10/2026 Diabetes [...] as of this encounter Visit Diagnoses Diagnosis Hyperparathyroidism (HCC) Hyperparathyroidism, unspecified Vitamin D deficiency Unspecified vitamin D deficiency History of sleeve gastrectomy 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 Care Teams Staff Midwife Relationship Specialty Start Date End Date Krzysztof Pickering MD [address] [place] [address] PCP - General Internal Medicine 06/19/16 documented as of this encounter
--- OUTSIDE RECORDS SUMMARY | 2025-02-20 22:51 | External Medical Summary | Summary of Care ---
Author Name Unknown Organization [facility] Address [address] [place] [address] Phone [phone] Care Team Providers Care Dry Wall Finisher Name Role Phone Krzysztof Pickering MD Primary Care Provider + Reason for Visit * Reason Comments Dosage Adjustment In Person (Anticoag Cl inic) Encounter Details Date Type Department Care Team (Latest Contact Info) Description 12/08/2024 7:30 AM EST Anticoagulation Pharmacy, [facility] [address] [place] [phone] [facility] [address] [place] [address] Anticoagulation management encounter*; Factor 5 Leiden mutation, [...] as of this encounter (statuses as of 12/08/2024) Medications Folic Acid 5 MG CAPS Take [...] as of this encounter (statuses as of 12/08/2024) Active Problems Problem Noted Date Diagnosed Date [...] cwp, nocturnal ox 08/21/11 CPAP 5-15 cwp [facility] MEDICATION USE AGREEMENT 12/30/2006 Overview (02/20/2009): 02/06/09: Urine screen negative of oxycodone Spondylolisthesis 08/19/2006 Allergic rhinitis due to pollen 01/24/2004 Heterozygous MTHFR mutation C677T documented as of this encounter (statuses as of 12/08/2024) Resolved Problems Problem Noted Date Diagnosed Date [...] Nocturnal oxygen desaturation 07/25/2013 04/19/2019 [facility] OTHER*[id number] 02/04/2013 07/25/2013 Obesity, morbid (more than 1 00 lbs over ideal weight or BMI > 40) 08/09/2012 07/09/2017 Overview: Per Obesity protocol #1 BMI 70 and over, adult 12/04/201111/28 Obstructive sleep apnea syndrome 09/04/2011 10/02/2011 Genetic Sleep Disorder Resea [facility] Other*[id number] 07/07/2011 05/07/2016 Morbid Obesity, BMI > 40 05/04/201105/2011 Adult body mass index 60.0-69.9 02/02/2011 12/04/2011 Morbid Obesity, BMI > 40 11/20/201010/2010 [facility] Research*[id number] 07/08/2010 12/18/2015 Overview (12/18/2015): 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 Research*[id number] 03/19/2010 06/26/2010 [facility] OTHER*[id number] 03/19/2010 03/10/2024 Overview (07/25/2013): Completed about 09/2010 [...] (01/01/2010): Per Obesity Taxonomy Heterozygous MTHFR mutation [id number] 07/28/2017 documented as of this encounter (statuses as of 12/08/2024) Immunizations Name Administration Dates Next Due COVID-19 [...] of Assessment Author Yes 06/22/2021 5:50 PM OCTAVIAT Mary Ellen Cardoza [...] documented in this encounter Progress Notes * Caridad Cirsostomo, [facility] - 12/08/2024 7:58 AM EST Images from the original note were not included. Medication Therapy Disease Management - Anticoagulation Patient: Amaya Monteiro | : 1970 Subjective Contacts Contact Date/Time Type Contact Phone/Fax 12/05/2024 08:12 AM EST Text Message (Outgoing) [phone] [facility]: Amaya, you have an upcoming visit on 12/08 at 7:30 AM. Details: [email or web address] Reply 1 to confirm or 3 to cancel. Reply STOP to opt out. 12/07/2024 08:08 AM EST Text Message (Outgoing) [phone] [facility]: Amaya, you have an upcoming visit on 12/08 at 7:30 AM. Details: [email or web address] Reply 1 to confirm or 3 to cancel. Reply STOP to opt out. Patient-Reported Symptoms: Patient Findings Negatives: Signs/symptoms of thrombosis, Signs/symptoms of bleeding, Change in health, Change in alcohol use, Change in activity, Upcoming invasive procedure, Missed doses, Extra doses, Change in medications, Change in diet/appetite, Bruising Objective Current Warfarin Dose As of 12/08/2024 Warfarin maintenance plan: 10 mg (10 mg x 1) every Thu, Thu, Thu; 5 mg (10 mg x 0.5) all other days INR Result As of 12/08/2024 INR goal: 2.0-3.0 INR used for dosin.8 (12/08/2024) Assessment & Plan Warfarin Plan As of 12/08/2024 Full warfarin instructions: 12/08: 15 mg; Otherwise 10 mg every Thu, Thu, Molly; 5 mg all other days Next INR check: 01/19/2025 Repeat PT/INR in 6 week(s) Weekly dose: increased Additional Dosing Information: I spent a total of 10-19 minutes (exact time 10 mins) on the date of service in preparation, delivery, and documentation of the care provided to Amaya Monteiro excluding any time spent in the performance of separately billed services or time spent by another provider/QHP. Caridad Crisostomo [facility] Clinical Pharmacist 12/08/2024, 7:58 AM documented in this encounter Plan of Treatment Upcoming Encounters Date Type Department Care Team (Late st Contact Info) Description 01/09/2025 10:20 AM EDT Office Visit General Internal Medicine [facility] [address] [facility] [place] [address] Krzysztof Pickering MD [address] [facility] [place] [address] 01/13/2025 7:15 AM EDT Imaging Radiology [address] [place] [phone] 01/19/2025 7:30 AM EDT Anticoagulation Pharmacy, [facility] [address] [place] [phone] [place], [facility] [address] [place] [address] 05/15/2025 10:00 AM EDT Office Visit Endocrinology [...] Comments INR FINGERSTICK, POINT OF CARE STAT 12/08/2024 7:29 AM EST Factor 5 Leiden mutation, heterozygous (HCC) Heterozygous MTHFR mutation C677T Anticoagulation management encounter documented in this encounter Results * INR FINGERSTICK, POINT OF CARE (12/08/2024 7:29 AM EST) Fingerstick INR 1.8 INR 7:38 AM EST [facility] Blood 12/08/2024 7:29 AM EST 12/08/2024 7:38 AM EST Narrative [facility] - 12/08/2024 7:38 AM EST Therapeutic ranges for non-operative patients: Prophylaxsis/treatment of DVT: (Range:2.0-3.0) Treatment of pulmonary embolism:(Range:2.0-3.0) Prevention of systemic embolism from: -tissue heart valves -acute myocardial infarction -valvular heart disease -atrial fibrillation (Range: 2.0-3.0) Mechanical prosthetic valves: (Range: 2.5-3.5) us Latasha Cuellar [facility] LAB POINT OF CARE TEST DOCKED DEVICE UNSOLICITED RESULTS Final Result [facility] [address] [facility] [place] [address], [facility] documented in this encounter Visit Diagnoses Diagnosis [...] and were consensually agreed upon. Care Teams Dry Wall Finisher Relationship Specialty Start Date End Date Krzysztof Pickering MD [address] [place] [address] PCP - General Internal Medicine 06/19/16 documented as of this encounter"
--- OUTSIDE RECORDS SUMMARY | 2025-02-20 22:51 | External Medical Summary ---
Author Name Unknown Address Unknown Organization [facility] [address] [place] [address] Laboratory Report Ordering Provider Test Date Status TOO ZEPEDA 11/23/2024 07:12:04 Final Observation Date Value Abnormality Reference (Units ) Status SYNC LEUKOCYTES IN BLOOD BY AUTOMATED COUNT 11/23/2024 07:12:04 5.14 4.00-10.80 (K/uL) Final Segs 11/23/2024 07:12:04 62.8 40.0-75.0 (%) Final Lymphs % 11/23/2024 07:12:04 22.0 18.0-42.0 (%) Final Monos 11/23/2024 07:12:04 12.5 Above high normal 1.0-11.0 (%) Final Eosinophils 11/23/2024 07:12:04 2.3 0.0-6.0 (%) Final Basos 11/23/2024 07:12:04 0.4 0.0-2.0 (%) Final Absolute Segs 11/23/2024 07:12:04 3.23 1.80-7.70 (K/uL) Final Lymphs, absolute 11/23/2024 07:12:04 1.13 1.00-4.80 (K/ul) Final Monos, Abs 11/23/2024 07:12:04 0.64 0.00-1.10 (K/uL) Final Eos, Abs 11/23/2024 07:12:04 0.12 0.00-0.70 (K/uL) Final Basos, Abs 11/23/2024 07:12:04 0.02 0.00-0.20 (K/uL) Final Performing Location [facility] [place] [address]
--- OUTSIDE RECORDS SUMMARY | 2025-02-20 22:51 | External Medical Summary ---
Author Name Unknown Address Unknown Organization [facility] [address] [place] [address] Laboratory Report Ordering Provider Test Date Status TOO ZEPEDA 11/23/2024 07:12:04 Final Observation Date Value Abnormality Reference (Units ) Status WBC, Total 11/23/2024 07:12:04 5.14 4.00-10.8 0 (K/uL) Final RBC 11/23/2024 07:12:04 4.60 3.85-5.15 (M/uL) Final Hemoglobin 11/23/2024 07:12:04 14.1 12.0-15.3 (g/dL) Final HCT 11/23/2024 07:12:04 45.1 36.0-45.2 (%) Final MCV 11/23/2024 07:12:04 98.0 81.5-97.5 (fL) Final MCH 11/23/2024 07:12:04 30.7 27.0-34.0 (pg) Final MCHC 11/23/2024 07:12:04 31.3 32.0-36.0 (g/dL) Final RDW 11/23/2024 07:12:04 12.9 11.5-15.5 (%) Final Platelets 11/23/2024 07:12:04 246 140-400 (K /uL) Final MPV 11/23/2024 07:12:04 10.1 6.6-11.1 ( fL) Final Performing Location [facility] [address] [place] [address]
--- OUTSIDE RECORDS SUMMARY | 2025-02-20 22:51 | External Medical Summary ---
Author Name Unknown Address Unknown Organization : Laboratory Report Ordering Provider Test Date Status FÉLIX DAVIDSON 12/08/2024 07:29:40 Final Therapeutic ranges for non-o perative patients:
Prophylaxsis/treatment of DVT: (Range:2.0-3.0)
Treatment of pulmonary embolism:(Range:2.0-3.0)
Prevention of systemic embolism from:
-tissue heart valves
-acute myocardial infarction
-valvular heart disease
-atrial fibrillation
(Range: 2.0-3.0)
Mechanical prosthetic valves: (Range: 2.5-3.5) Observation Date Value Abnormality Reference (Units ) Status INR in Capillary blood by Coagulation assay 12/08/2024 07:29:40 1.8 (INR) Final Performing Location
--- OUTSIDE RECORDS SUMMARY | 2025-02-20 22:51 | External Medical Summary | Summary of Care ---
Author Name Unknown Organization [facility] Address [address] [place] [address] Phone [phone] Care Team Providers Care Geodesist Name Role Phone Krzysztof Pickering MD Primary Care Provider + Reason for Visit * Reason Onset Date Comments Medication Refill 12/01/2024 Encounter Details Date Type Department Care Team (Late st Contact Info) Description 12/01/2024 Refill [facility] [address] [facility] [place] [address] Krzysztof Pickering MD [address] [place] [address] Chronic pain syndrome Allergies Active Allergy Reactions Criticality Noted Date Comments Latex 08/16/2010 Takes skin off with the bandaid Bacitracin-Polymyxin B Other (Please comment) 05/22/2021 Redness and film around edge when applied to skin Nylon 12 07/04/2010 Infection suture line Adhesive Tape 05/14/2007 Bandaids has to use Cloth tape. documented as of this encounter (statuses as of 12/03/2024) Medications Folic Acid 5 MG CAPS Take [...] as of this encounter (statuses as of 12/03/2024) Active Problems Problem Noted Date Diagnosed Date [...] cwp, nocturnal ox 08/21/11 CPAP 5-15 cwp [facility] MEDICATION USE AGREEMENT 12/30/2006 Overview (02/20/2009): 02/06/09: Urine screen negative of oxycodone Spondylolisthesis 08/19/2006 Allergic rhinitis due to pollen 01/24/2004 Heterozygous MTHFR mutation C677T documented as of this encounter (statuses as of 12/03/2024) Resolved Problems Problem Noted Date Diagnosed Date [...] Nocturnal oxygen desaturation 07/25/2013 04/19/2019 [facility] OTHER*[id number] 02/04/2013 07/25/2013 Obesity, morbid (more than 1 00 lbs over ideal weight or BMI > 40) 08/09/2012 07/09/2017 Overview: Per Obesity protocol #1 BMI 70 and over, adult 12/04/201111/28 Obstructive sleep apnea syndrome 09/04/2011 10/02/2011 Genetic Sleep Disorder Resea [facility] Other*[id number] 07/07/2011 05/07/2016 Morbid Obesity, BMI > 40 05/04/201105/2011 Adult body mass index 60.0-69.9 02/02/2011 12/04/2011 Morbid Obesity, BMI > 40 11/20/201010/2010 [facility] Research*[id number] 07/08/2010 12/18/2015 Overview (12/18/2015): 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 Research*[id number] 03/19/2010 06/26/2010 [facility] OTHER*[id number] 03/19/2010 03/10/2024 Overview (07/25/2013): Completed about 09/2010 [...] (01/01/2010): Per Obesity Taxonomy Heterozygous MTHFR mutation Q2773G 07/28/2017 documented as of this encounter (statuses as of 12/03/2024) Immunizations Name Administration Dates Next Due COVID-19 [...] 5:50 PM Mary Ellen Perez RN * Are you blind or do [...] EDT Nicolella , Mary Ellen K, RN documented as of this encounter Mental Status * Because of a physical, mental, or emotional condition, do you have serious difficulty concentrating, remembering, or making decisions? (5 years old or older) Answer Entry Date Author No 06/22/2021 5:50 PM EDT Mary Ellen Cardoza RN documented in this encounter Miscellaneous Notes * Telephone Encounter - Roma Hanks [facility] - 12/02/2024 8:49 PM EST Rx sent 12/01/24 - duplicate request; pended medication removed. Thanks, Roma Hanks, PharmD Clinical Pharmacist [facility] [phone] 12/02/2024 8:49 PM documented in this encounter Plan of Treatment Upcoming Encounters Date Type Department Care Team (Late st Contact Info) Description 12/08/2024 7:30 AM EST Anticoagulation Pharmacy, [facility] [address] [place] [phone] [place], [facility] [address] [place] [address] 01/09/2025 10:20 AM EDT Office Visit [facility] [address] [place] [address] Krzysztof Pickering MD [address] [facility] [place] [address] 01/13/2025 7:15 AM EDT Imaging Radiology [address] [place] [phone] 05/15/2025 10:00 AM EDT Office Visit Endocrinology [...] and were consensually agreed upon. Care Teams Geodesist Relationship Specialty Start Date End Date Krzysztof Pickering MD [address] [place] [address], [place] [address] PCP - General Internal Medicine 06/19/16 documented as of this encounter
--- OUTSIDE RECORDS SUMMARY | 2025-02-20 22:52 | External Medical Summary | Summary of Care ---
Author Name Unknown Organization [facility] Address [address] [place] [address] Phone [phone] Care Team Providers Care Duck Farmer Name Role Phone Krzysztof Pickering MD Primary Care Provider + Reason for Visit * Reason Comments Knee Pain Bilateral Encounter Details Date Type Department Care Team (Latest Contact Info) Description 11/09/2024 8:00 AM EST Office Visit Orthopaedics [facility] [address] [place] [phone] Ramu Colby, [address] [place] [phone] Primary osteoarthritis of both knees* Allergies Active Allergy Reactions Criticality Noted Date Comments Latex 08/16/2010 Takes skin off with the bandaid Bacitracin-Polymyxin B Other (Please comment) 05/22/2021 Redness and film around edge when applied to skin Nylon 12 07/04/2010 Infection suture line Adhesive Tape 05/14/2007 Bandaids has to use Cloth tape. documented as of this encounter (statuses as of 11/09/2024) Medications Folic Acid 5 MG CAPS Take [...] of both knees 16.8 mg IX ONCE 11/09/2024 11/09/2024 Ended sodium hyaluronate (Gelsyn-3) 16.8 MG/2ML inj 16.8 mgIndications:Primary osteoarthritis of both knees 16.8 mg IX ONCE 11/09/2024 11/09/2024 Ended documented as of this encounter (statuses as of 11/09/2024) Active Problems Problem Noted Date Diagnosed Date [...] cwp, nocturnal ox 08/21/11 CPAP 5-15 cwp [facility] MEDICATION USE AGREEMENT 12/30/2006 Overview (02/20/2009): 02/06/09: Urine screen negative of oxycodone Spondylolisthesis 08/19/2006 Allergic rhinitis due to pollen 01/24/2004 Heterozygous MTHFR mutation C677T documented as of this encounter (statuses as of 11/09/2024) Resolved Problems Problem Noted Date Diagnosed Date [...] Nocturnal oxygen desaturation 07/25/2013 04/19/2019 [facility] OTHER*[id number] 02/04/2013 07/25/2013 Obesity, morbid (more than 1 00 lbs over ideal weight or BMI > 40) 08/09/2012 07/09/2017 Overview: Per Obesity protocol #1 BMI 70 and over, adult 12/04/201111/28 Obstructive sleep apnea syndrome 09/04/2011 10/02/2011 Genetic Sleep Disorder Resea [facility] Other*[id number] 07/07/2011 05/07/2016 Morbid Obesity, BMI > 40 05/04/201105/2011 Adult body mass index 60.0-69.9 02/02/2011 12/04/2011 Morbid Obesity, BMI > 40 11/20/201010/2010 [facility] Research*[id number] 07/08/2010 12/18/2015 Overview (12/18/2015): 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 Research*[id number] 03/19/2010 06/26/2010 [facility] OTHER*[id number] 03/19/2010 03/10/2024 Overview (07/25/2013): Completed about 09/2010 [...] (01/01/2010): Per Obesity Taxonomy Heterozygous MTHFR mutation A9571A 07/28/2017 documented as of this encounter (statuses as of 11/09/2024) Immunizations Name Administration Dates Next Due COVID-19 [...] 5:50 PM Mary Ellen Perez RN documented as of this encounter Mental Status * Because of a physical, mental, or emotional condition, do you have serious difficulty concentrating, remembering, or making decisions? (5 years old or older) Answer Entry Date Author No 06/22/2021 5:50 PM Mary Ellen Perez RN documented in this encounter Progress Notes * Ramu Colby, - 11/09/2024 8:00 AM EST Amaya Nassar [id number] INJECTION and office NOTE Amaya Nassar is a 54 year old female who presents to [facility] for Bilateral knee injections. Start Gelsyn series She has had both steroids and Gelsyn injections and she gets approximately 2-3 months of benefit Last injected 08/10/24 TODAY: She would like to start Gelsyn series Patient Active Problem List Diagnosis Allergic rhinitis [...] Results Component Value Date/Time HEMOGLOBIN A1C - [facility] 5.6 11/10/2020 08:21 AM HEMOGLOBIN A1C - [facility] 5.5 12/19/2019 09:07 AM HEMOGLOBIN A1C - [facility] 5.2 2017 01:37 PM HEMOGLOBIN A1C - [facility] 4.9 08/22/2015 07:42 AM Physical exam Gait and Station: moderately antalgic Knee exam Active range of motion 0-110 No effusion- verified by ultrasound tenderness to palpation at medial joint line b/l Assessment and Plan: We will do injections. Please see procedure note. Follow up next week. Primary osteoarthritis of both knees (Primary) - sodium hyaluronate (Gelsyn-3) 16.8 MG/2ML inj 16.8 mg - sodium hyaluronate (Gelsyn-3) 16.8 MG/2ML inj 16.8 mg - POINT OF CARE US MAJOR JOINT INJECTION, ORTHO Ramu Colby DO, MBA, FAAFP, RMSK [facility] Sports Predatory Game HunterOccupational Health Coordinator Primary Care Sports Medicine Team Physician [facility] Office locations: Orthopaedics [place] [address] [address] This chart was completed in part utilizing [employer] Speech Voice Recognition Software. Grammatical errors, random [...] Colby DO Sports Medicine Primary Care Orthopaedics [facility] [address] [place] [address] documented in this encounter Nursing Notes * Cierra Salcido LPN - 11/09/2024 7:53 AM EST Bilateral knee Gelsyn injections. Cierra hill LPN documented in this encounter Plan of Treatment Upcoming Encounters Date Type Department Care Team (Late st Contact Info) Description 11/14/2024 8:30 AM EST Anticoagulation Pharmacy, [address] [place] [phone] [place] [address] [address] 11/14/2024 11:30 AM EST Office Visit [facility] [address] [place] [phone] Ramu Colby DO [address] [place] [phone] 11/16/2024 8:00 AM EST [facility] [address] [place] [phone] Ramu Colby, DO [address] [place] [address] 11/23/2024 8:00 AM EST Office Visit Orthopaedics [facility] [address] [place] [phone] Ramu Colby, DO [address] [place] [address] 01/09/2025 10:20 AM EDT Office Visit General Internal Medicine [facility] [address] [facility] [place] [address] Krzysztof Pickering MD [address] [facility] [place] [address] 01/13/2025 7:15 AM EDT Imaging Radiology [address] [place] [address] 05/15/2025 10:00 AM EDT Office Visit Endocrinology [...] Procedure Name Priority Date/Time Associated Diagnosis Comments POINT OF CARE US MAJOR JOINT INJECTION, ORTHO Routine 11/09/2024 7:33 AM EST Primary osteoarthritis of both knees documented in this encounter Results * POINT OF CARE US MAJOR JOINT INJECTION, ORTHO (11/09/2024 7:33 AM EST) Anatomical Region Laterality Modality Musculoskeletal Radiographic [place] 11/09/2024 7:33 AM EST Narrative 11/09/2024 9:04 AM EST Patient Name: AMAYA NASSAR : 1970 (54y) Female Performing Provider: Ramu Colby (digitally signed Nov 09, 2024 09:04 EST) Attending: Ramu Colby (digitally signed Nov 09, 2024 09:04 EST) [Impression] : PROCEDURE NOTE: KNEE INJECTION - ULTRASOUND Laterality: [...] for fever, warmth, unusual redness at injection site for potential infection. Patient also advised regarding post-procedural pain. Ramu Colby DO Sports Medicine Primary Care Orthopaedics [address] [address] Procedure Note Ramu Colby DO - 11/09/2024 Patient Name: AMAYA NASSAR : 1970 (54y) Female Performing Provider: Ramu Colby (digitally signed Nov 09, 2024 09:04EST) Attending: Ramu Colby (digitally signed Nov 09, 2024 09:04 EST) [Impression] : PROCEDURE NOTE: KNEE INJECTION - ULTRASOUND Laterality: Bilateral Time out: Prior to injection, a time out was called to confirm the administration ofappropriate medicine, patient name, procedure and confirm to the best ofour ability and knowledge the presence of any necessary risks andbenefits. Patient verbalized understanding. Ultrasound utilized to guide injection. During the procedure, the needle was visualized in plane and was advancedwith continuous ultrasound guidance to the appropriate anatomical landmarkas described in the procedure. Ultrasound required due to high risk for complications without ultrasoundguidance (risk for neurovascular damage) and patient size (obese) Sterile technique applied using gloves, chlorhexadine, and alcoholswabs. Ethyl chloride spray for local anesthetic. Knee injected at superior-lateral recess 3.5 inch, 22 gauge needle.Injected with Gelsyn. Patient tolerated procedure with no significant bleeding or adversereaction. Patient instructed to call or return to clinic for fever, warmth, unusualredness at injection site for potential infection. Patient also advisedregarding post- procedural pain. Ramu Colby DO Sports Medicine Primary Care Orthopaedics [facility] [address] [facility] [address] Ramu Colby DO RAD ULTRASOUND Final Result documented in this encounter Visit Diagnoses Diagnosis Primary osteoarthritis of both knees- Primary Primary localized osteoarthrosis, lower leg documented in this encounter Administered Medications Inactive Administered Medications - up to 3 most recent administrations Medication Order MAR Action Action Date Dose Rate Site sodium hyaluronate (Gelsyn-3) 16.8 MG/2ML inj 16.8 mg 16.8 mg, Intra-Articular, ONCE, On Thu11/09/24 at 0830, For 1 doseIndications:Primary osteoarthritis of both knees Given 11/09/2024 11:17 AM EST 16.8 mg Knee Right sodium hyaluronate (Gelsyn-3) 16.8 MG/2ML inj 16.8 mg 16.8 mg, Intra-Articular, ONCE, On Thu11/09/24 at 0830, For 1 doseIndications:Primary osteoarthritis of both knees Given 11/09/2024 11:16 AM EST 16.8 mg Knee Left documented [...] and were consensually agreed upon. Care Teams Duck Farmer Relationship Specialty Start Date End Date Krzysztof Pickering MD [address] [place] [address] PCP - General Internal Medicine 06/19/16 documented as of this encounter
--- OUTSIDE RECORDS SUMMARY | 2025-02-20 22:52 | External Medical Summary | Summary of Care ---
Author Name Unknown Organization [facility] Address [address] [place] [address] Phone [phone] Care Team Providers Care Count Room Clerk Name Role Phone Krzysztof Pickering MD Primary Care Provider + Reason for Visit * Reason Onset Date Comments FYI 11/17/2024 Encounter Details Date Type Department Care Team (Late st Contact Info) Description 11/17/2024 Telephone General Internal Medicine [facility] 200 [facility] [place] [address] Krzysztof Pickering MD [address] [place] [address] FYI Allergies Active Allergy Reactions Criticality Noted Date Comments Latex 08/16/2010 Takes skin off with the bandaid Bacitracin-Polymyxin B Other (Please comment) 05/22/2021 Redness and film around edge when applied to skin Nylon 12 07/04/2010 Infection suture line Adhesive Tape 05/14/2007 Bandaids has to use Cloth tape. documented as of this encounter (statuses as of 11/22/2024) Medications Folic Acid 5 MG CAPS Take [...] as of this encounter (statuses as of 11/22/2024) Active Problems Problem Noted Date Diagnosed Date [...] cwp, nocturnal ox 08/21/11 CPAP 5-15 cwp [facility] MEDICATION USE AGREEMENT 12/30/2006 Overview (02/20/2009): 02/06/09: Urine screen negative of oxycodone Spondylolisthesis 08/19/2006 Allergic rhinitis due to pollen 01/24/2004 Heterozygous MTHFR mutation [id number] documented as of this encounter (statuses as of 11/22/2024) Resolved Problems Problem Noted Date Diagnosed Date [...] Nocturnal oxygen desaturation 07/25/2013 04/19/2019 [facility] OTHER*[id number] 02/04/2013 07/25/2013 Obesity, morbid (more than 1 00 lbs over ideal weight or BMI > 40) 08/09/2012 07/09/2017 Overview: Per Obesity protocol #1 BMI 70 and over, adult 12/04/201111/28 Obstructive sleep apnea syndrome 09/04/2011 10/02/2011 Genetic Sleep Disorder Resea [facility] Other*[id number] 07/07/2011 05/07/2016 Morbid Obesity, BMI > 40 05/04/201105/2011 Adult body mass index 60.0-69.9 02/02/2011 12/04/2011 Morbid Obesity, BMI > 40 11/20/201010/2010 [employer]*[id number] 07/08/2010 12/18/2015 Overview (12/18/2015): 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 Research*[id number] 03/19/2010 06/26/2010 [facility] OTHER*[id number] 03/19/2010 03/10/2024 Overview (07/25/2013): Completed about 09/2010 [...] (01/01/2010): Per Obesity Taxonomy Heterozygous MTHFR mutation [id number] 07/28/2017 documented as of this encounter (statuses as of 11/22/2024) Immunizations Name Administration Dates Next Due COVID-19 [...] encounter Miscellaneous Notes * Telephone Encounter - Yoselin Hadley OSA - 11/22/2024 3:43 PM EST Left message offering to reschedule appointment on 01/09/25 to a 40 minute appointment. * Telephone Encounter - Yoselin Hadley OSA - 11/21/2024 1:46 PM EST Left message offering to reschedule appointment on 01/09/25 to a 40 minute appointment. * Telephone Encounter - Yoselin Hadley OSA - 11/17/2024 11:58 AM EST Thank you for being a valued patient with [facility]. As part of [facility]’s continued effort to make better health easy, we are offering longer appointments to a subset of our patients who we thinkwould benefit from more time with their providers. This is our way of ensuring that patients have easier access to the care they need, to stay as healthy as possible. Left message offering to reschedule appointment on 01/09/25 to a 40 minute appointment. documented in this encounter Plan of Treatment Upcoming Encounters Date Type Department Care Team (Late st Contact Info) Description 11/23/2024 8:00 AM EST Office Visit Orthopaedics [facility] [address] [place] [address] Ramu Colby, DO [address] [place] [address] 11/24/2024 7:15 AM EST Cardiac Studies Cardiac Studies, [facility] [address] [place] [address] 11/30/2024 8:45 AM EST Office Visit Orthopaedics [facility] [address] [place] [phone] Ramu Colby, [address] [place] [phone] 12/08/2024 7:30 AM EST Anticoagulation Pharmacy, [facility] [address] [place] [phone] [facility] [address] [place] [address] 01/09/2025 10:20 AM EDT Office Visit General Internal Medicine [facility] 200 [facility] [place], [place] [address] Krzysztof Pickering MD [address] [place], [place] [address] 01/13/2025 7:15 AM EDT Imaging Radiology [facility] [address] [place] [phone] 05/15/2025 10:00 AM EDT Office Visit Endocrinology [...] and were consensually agreed upon. Care Teams Count Room Clerk Relationship Specialty Start Date End Date Krzysztof Pickering MD 200 [facility], [place] [address] PCP - General Internal Medicine 06/19/16 documented as of this encounter
--- OUTSIDE RECORDS SUMMARY | 2025-02-20 22:52 | External Medical Summary ---
Author Name Unknown Address Unknown Organization : Laboratory Report Ordering Provider Test Date Status AI DAVIDSONChase 11/14/2024 08:34:22 Final Therapeutic ranges for non-o perative patients:
Prophylaxsis/treatment of DVT: (Range:2.0-3.0)
Treatment of pulmonary embolism:(Range:2.0-3.0)
Prevention of systemic embolism from:
-tissue heart valves
-acute myocardial infarction
-valvular heart disease
-atrial fibrillation
(Range: 2.0-3.0)
Mechanical prosthetic valves: (Range: 2.5-3.5) Observation Date Value Abnormality Reference (Units ) Status INR in Capillary blood by Coagulation assay 11/14/2024 08:34:22 1.8 (INR) Final Performing Location
--- OUTSIDE RECORDS SUMMARY | 2025-02-20 22:52 | External Medical Summary ---
Author Name Unknown Address Unknown Organization K01:[facility] [address] [place] [address] Laboratory Report Ordering Provider Test Date Status TONE PEARCE 11/23/2024 07:12:04 Final Observation Date Value Abnormality Reference (Units ) Status Parathyrin.intact [Mass/volume] in Serum or Plasma 11/23/2024 07:12:04 87 Above high normal 15-65 (pg/mL) Final Performing Location [facility] [address] [place] [address]
--- OUTSIDE RECORDS SUMMARY | 2025-02-20 22:52 | External Medical Summary | Summary of Care ---
Author Name Unknown Organization [facility] Address [address] [place] [address] Phone [phone] Care Team Providers Care Roof Bolter Helper Name Role Phone Krzysztof Pickering MD Primary Care Provider + Reason for Visit * Reason Comments Knee Pain Bilateral Encounter Details Date Type Department Care Team (Latest Contact Info) Description 11/09/2024 8:00 AM EST Office Visit Orthopaedics [facility] [address] [place] [phone] Ramu Colby, [address] [place] [phone] Primary osteoarthritis of both knees* Allergies Active [...] knees 16.8 mg IX ONCE 11/09/2024 11/09/2024 Active sodium hyaluronate (Gelsyn-3) 16.8 MG/2ML inj 16.8 mgIndications:Primary osteoarthritis of both knees 16.8 mg IX ONCE 11/09/2024 11/09/2024 Active documented as of this encounter (statuses [...] cwp, nocturnal ox 08/21/11 CPAP 5-15 cwp [facility] MEDICATION USE AGREEMENT 12/30/2006 [...] Nocturnal oxygen desaturation 07/25/2013 04/19/2019 [facility] OTHER*[id number] 02/04/2013 07/25/2013 Obesity, morbid (more than 1 00 lbs over ideal weight or BMI > 40) 08/09/2012 07/09/2017 Overview: Per Obesity protocol #1 BMI 70 and over, adult 12/04/201111/28 Obstructive sleep apnea syndrome 09/04/2011 10/02/2011 Genetic Sleep Disorder Resea [facility] Other*[id number] 07/07/2011 05/07/2016 Morbid Obesity, BMI > 40 05/04/201105/2011 Adult body mass index 60.0-69.9 02/02/2011 12/04/2011 Morbid Obesity, BMI > 40 11/20/201010/2010 [employer]*[id number] 07/08/2010 12/18/2015 Overview (12/18/2015): 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 Research*[id number] 03/19/2010 06/26/2010 [facility] OTHER*[id number] 03/19/2010 03/10/2024 Overview (07/25/2013): Completed about 09/2010 [...] (01/01/2010): Per Obesity Taxonomy Heterozygous MTHFR mutation 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 Start [...] OF CARE US MAJOR JOINT INJECTION, ORTHO NAHUN Mcguire DOA, FAAFP, RMSK [facility] Sports Horse WranglerManager Portable Primary Care Sports Medicine Team Physician [facility] Office locations: Orthopaedics [place] [address] [address] This chart was completed in part utilizing [employer] Speech Voice Recognition Software. Grammatical errors, random [...] Ramu Colby DO Sports Medicine Primary Care [facility] [address] [place] [address] documented in this encounter Nursing Notes * Cierra Salcido LPN - 11/09/2024 7:53 AM EST Bilateral knee Gelsyn injections. Cierra hill LPN documented in this encounter Plan of Treatment Upcoming Encounters Date Type Department Care Team (Late st Contact Info) Description 11/14/2024 8:30 AM EST Anticoagulation Pharmacy, [facility] [address] [place] [phone] [facility] [address] [place] [address] 11/14/2024 11:30 AM EST Office Visit [facility] [address] [place] [phone] Ramu Colby DO [address] [place] [phone] 11/16/2024 8:00 AM EST Office Visit [facility] [address] [place] [phone] Ramu Colby DO [address] [place] [phone] 11/23/2024 8:00 AM EST Office Visit [facility] [address] [place] [phone] Ramu Colby DO [address] [place] [phone] 01/09/2025 10:20 AM EDT Office Visit General Internal Medicine [facility] 200 [facility] [place] [address] Krzysztof Pickering MD 200 [facility] [place] [address] 01/13/2025 7:15 AM EDT Imaging Radiology [address] [place] [address] 05/15/2025 10:00 AM EDT Office Visit Endocrinology [address] [place] [address] Kylee Cox MD [address] [place] [address] Scheduled Procedures Name Priority Associated Diagnoses Date/Ti me COLONOSCOPY FLEXIBLE PROXIMA L DIAGNOSTIC Recall History of colonic polyps Health Maintenance Due Date Last Done Comments Cologuard 01/06/2013 Fecal Occult Blood Test 01/06/2013 Sigmoidoscopy 01/06/2013 Pneumococcal Vaccine: 50+ Years (3 of 3 - PCV20 or PCV21) 07/25/2018 07/25/2013, 07/25/2013 COVID-19 Vaccine ( season) 2024 02/16/2021, 02/08/2021, 01/19/2021 Depression Monitoring 09/08/2024 09/08/2023 Mammogram 01/11/2025 01/12/2024, 06/2024, 12/29/2022, Additional history exists GFR 03/21/2025 03/21/2024, 03/2024, 11/04/2023, Additional history exists TSH 03/21/2025 03/21/2024, 10/07, 10/27/2022, Additional history exists Albumin/Creatinine Ratio 04/11/2025 04/11/2022, 071 11/2009 Pap Smear 09/03/2025 09/03/2022, 04/0 11/2018, 11/04/2016, [...] Colby DO Sports Medicine Primary Care Orthopaedics [place] [address] [facility] [address] Procedure Note Ramu Colby DO - 11/09/2024 [...] Patient also advisedregarding post- procedural pain. Ramu Colby, DO Sports Medicine Primary Care Orthopaedics [facility] [address] [place] [address] us Ramu Colby DO RAD ULTRASOUND Final Result documented in this encounter Visit Diagnoses Diagnosis Primary osteoarthritis of both knees- Primary Primary localized osteoarthrosis, lower leg documented in this encounter Advance Directives * [...] and were consensually agreed upon. Care Teams Roof Bolter Helper Relationship Specialty Start Date End Date Krzysztof Pickering MD 200 [place] [address] PCP - General Internal Medicine 06/19/16 documented as of this encounter
--- OUTSIDE RECORDS SUMMARY | 2025-02-20 22:52 | External Medical Summary | Summary of Care ---
Author Name Unknown Organization [facility] Address [address] [place] [address] Phone [phone] Care Team Providers Care Sales Representative Advertising Name Role Phone Krzysztof Pickering MD Primary Care Provider + Reason for Visit * Reason Comments Knee Pain Bilateral Encounter Details Date Type Department Care Team (Latest Contact Info) Description 11/09/2024 8:00 AM EST Office Visit Orthopaedics [facility] [address] [place] [phone] Ramu Colby, [address] [place] [phone] Primary osteoarthritis of both knees* Allergies Active [...] cwp, nocturnal ox 08/21/11 CPAP 5-15 cwp [facility] MEDICATION USE AGREEMENT 12/30/2006 Overview [...] Nocturnal oxygen desaturation 07/25/2013 04/19/2019 [facility] OTHER*[id number] 02/04/2013 07/25/2013 Obesity, morbid (more than 1 00 lbs over ideal weight or BMI > 40) 08/09/2012 07/09/2017 Overview: Per Obesity protocol #1 BMI 70 and over, adult 12/04/201111/28 Obstructive sleep apnea syndrome 09/04/2011 10/02/2011 Genetic Sleep Disorder Resea [facility] Other*[id number] 07/07/2011 05/07/2016 Morbid Obesity, BMI > 40 05/04/201105/2011 Adult body mass index 60.0-69.9 02/02/2011 12/04/2011 Morbid Obesity, BMI > 40 11/20/201010/2010 [employer]*[id number] 07/08/2010 12/18/2015 Overview (12/18/2015): 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 Research*[id number] 03/19/2010 06/26/2010 [facility] OTHER*[id number] 03/19/2010 03/10/2024 Overview (07/25/2013): Completed about 09/2010 [...] (01/01/2010): Per Obesity Taxonomy Heterozygous MTHFR mutation [id number] 07/28/2017 documented as of this encounter (statuses [...] - 11/09/2024 8:00 AM EST Amaya Nassar [id number] INJECTION and office NOTE Amaya Nassar is [...] INJECTION, ORTHO NAHUN Mcguire DOA, FAAFP, RMSK [facility] Sports Handicapper Harness RacingBlow Pit Helper Primary Care Sports Medicine Team Physician [facility] Office locations: Orthopaedics [place] [address] [phone] This chart was completed in part utilizing [employer] Speech Voice Recognition Software. Grammatical errors, random [...] Ramu Colby DO Sports Medicine Primary Care [facility] [address] [place] [address] documented in this encounter Nursing Notes * Cierra Salcido LPN - 11/09/2024 7:53 AM EST Bilateral knee Gelsyn injections. Cierra hill LPN documented in this encounter Plan of Treatment Upcoming Encounters Date Type Department Care Team (Late st Contact Info) Description 11/14/2024 8:30 AM EST Anticoagulation Pharmacy, [facility] [address] [place] [phone] [facility] [address] [place] [address] 11/14/2024 11:30 AM EST Office Visit [facility] [address] [place] [phone] Ramu Colby DO [address] [place] [phone] 11/16/2024 8:00 AM EST Office Visit [facility] [address] [place] [phone] Ramu Colby DO [address] [place] [phone] 11/23/2024 8:00 AM EST Office Visit [facility] [address] [place] [phone] Ramu Colby DO [address] [place] [phone] 01/09/2025 10:20 AM EDT Office Visit General Internal Medicine [facility] [address] [facility] [place] [address] Krzysztof Pickering MD 200 [facility] [place] [address] 01/13/2025 7:15 AM EDT Imaging Radiology [address] [place] [address] 05/15/2025 10:00 AM EDT Office Visit Endocrinology [address] [place] [address] Kylee oCx MD [address] [place] [address] Scheduled Procedures Name Priority Associated Diagnoses Date/Ti [...] Colby DO Sports Medicine Primary Care Orthopaedics [place] [address] [facility] [phone] Procedure Note Ramu Colby DO - 11/09/2024 [...] Colby, DO Sports Medicine Primary Care Orthopaedics [facility] [address] [place] [phone] us Ramu Colby DO RAD ULTRASOUND Final [...] and were consensually agreed upon. Care Teams Sales Representative Advertising Relationship Specialty Start Date End Date Krzysztof Pickering MD 200 [place] [address] PCP - General Internal Medicine 06/19/16 documented as of this encounter
--- OUTSIDE RECORDS SUMMARY | 2025-02-20 22:52 | External Medical Summary | Summary of Care ---
Author Name Unknown Organization [facility] Address [address] [place] [address] Phone [phone] Care Team Providers Care Ginseng Farmer Name Role Phone Krzysztof Pickering MD Primary Care Provider + Reason for Visit * Reason Onset Date Comments FYI 11/17/2024 Encounter Details Date Type Department Care Team (Late st Contact Info) Description 11/17/2024 Telephone General Internal Medicine [facility] 200 [facility] [place] [address] Krzysztof Pickering MD [address] [place] [address] FYI Allergies Active Allergy Reactions Criticality Noted Date Comments Latex 08/16/2010 Takes skin off with the bandaid Bacitracin-Polymyxin B Other (Please comment) 05/22/2021 Redness and film around edge when applied to skin Nylon 12 07/04/2010 Infection suture line Adhesive Tape 05/14/2007 Bandaids has to use Cloth tape. documented as of this encounter (statuses as of 11/21/2024) Medications Folic Acid 5 MG CAPS Take [...] as of this encounter (statuses as of 11/21/2024) Active Problems Problem Noted Date Diagnosed Date [...] as of this encounter (statuses as of 11/21/2024) Resolved Problems Problem Noted Date Diagnosed Date [...] Nocturnal oxygen desaturation 07/25/2013 04/19/2019 [facility] OTHER*[id number] 02/04/2013 07/25/2013 Obesity, morbid (more than 1 00 lbs over ideal weight or BMI > 40) 08/09/2012 07/09/2017 Overview: Per Obesity protocol #1 BMI 70 and over, adult 12/04/201111/28 Obstructive sleep apnea syndrome 09/04/2011 10/02/2011 Genetic Sleep Disorder Resea [facility] Other*[id number] 07/07/2011 05/07/2016 Morbid Obesity, BMI > 40 05/04/201105/2011 Adult body mass index 60.0-69.9 02/02/2011 12/04/2011 Morbid Obesity, BMI > 40 11/20/201010/2010 [employer] Research*[id number] 07/08/2010 12/18/2015 Overview (12/18/2015): 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 Research*[id number] 03/19/2010 06/26/2010 [facility] OTHER*[id number] 03/19/2010 03/10/2024 Overview (07/25/2013): Completed about 09/2010 [...] (01/01/2010): Per Obesity Taxonomy Heterozygous MTHFR mutation [id number] 07/28/2017 documented as of this encounter (statuses as of 11/21/2024) Immunizations Name Administration Dates Next Due COVID-19 [...] you for being a valued patient with [facility]. As part of [facility]’s continued effort to make better health easy, [...] 11/23/2024 8:00 AM EST Office [facility] [address] [place] [phone] Ramu Colby, [address] [place] [address] 11/24/2024 7:15 AM EST Cardiac Studies Cardiac Studies, [facility] [address] [place] [address] 11/30/2024 8:45 AM EST Office [facility] [address] [place] [phone] Ramu Colby DO [address] [place] [address] 12/08/2024 7:30 AM EST Anticoagulation [facility] [address] [facility] [place] [phone] [facility] [address] [facility] [place] [address] 01/09/2025 10:20 AM EDT Office Visit General Internal Medicine [facility] 200 [facility] [place] [address] Krzysztof Pickering MD 200 [facility] [place] [address] 01/13/2025 7:15 AM EDT Imaging Radiology [address] [place] [address] 05/15/2025 10:00 AM EDT Office Visit Endocrinology [address] [place], [place] [phone] Kylee Cox MD [address] [place] [address] [address] Scheduled Procedures Name Priority Associated Diagnoses Date/Ti me COLONOSCOPY FLEXIBLE PROXIMA L DIAGNOSTIC Recall History of colonic polyps Health Maintenance Due Date Last Done Comments Cologuard 01/06/2013 Fecal Occult Blood Test 01/06/2013 Sigmoidoscopy 01/06/2013 Pneumococcal Vaccine: 50+ Years (3 of 3 - PCV20 or PCV21) 07/25/2018 07/25/2013, 07/25/2013 COVID-19 Vaccine ( - 2023- season) 2024 02/16/2021, 02/08/2021, 01/19/2021 Depression Monitoring [...] and were consensually agreed upon. Care Teams Ginseng Farmer Relationship Specialty Start Date End Date Krzysztof Pickering MD [address] [place] [address] PCP - General Internal Medicine 06/19/16 documented as of this encounter
--- OUTSIDE RECORDS SUMMARY | 2025-02-20 22:52 | External Medical Summary | Summary of Care ---
Author Name Unknown Organization [facility] Address [address] [place] [address] Phone [phone] Care Team Providers Care Neck Fitter Name Role Phone Krzysztof Pickering MD Primary Care Provider + Reason for Visit * Reason Comments Dosage Adjustment In Person (Anticoag Cl inic) Encounter Details Date Type Department Care Team (Latest Contact Info) Description 11/14/2024 8:30 AM EST Anticoagulation Pharmacy, [facility] [address] [place] [address] [facility] [address] [place] [address] Anticoagulation management encounter*; Factor 5 Leiden mutation, [...] as of this encounter (statuses as of 11/14/2024) Medications Folic Acid 5 MG CAPS Take [...] as of this encounter (statuses as of 11/14/2024) Active Problems Problem Noted Date Diagnosed Date [...] as of this encounter (statuses as of 11/14/2024) Resolved Problems Problem Noted Date Diagnosed Date [...] Nocturnal oxygen desaturation 07/25/2013 04/19/2019 [facility] OTHER*[id number] 02/04/2013 07/25/2013 Obesity, morbid (more than 1 00 lbs over ideal weight or BMI > 40) 08/09/2012 07/09/2017 Overview: Per Obesity protocol #1 BMI 70 and over, adult 12/04/201111/28 Obstructive sleep apnea syndrome 09/04/2011 10/02/2011 Genetic Sleep Disorder [facility] Other*[id number] 07/07/2011 05/07/2016 Morbid Obesity, BMI > 40 05/04/201105/2011 Adult body mass index 60.0-69.9 02/02/2011 12/04/2011 Morbid Obesity, BMI > 40 11/20/201010/2010 [facility]*[id number] 07/08/2010 12/18/2015 Overview (12/18/2015): 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 Research*[id number] 03/19/2010 06/26/2010 [facility] OTHER*[id number] 03/19/2010 03/10/2024 Overview (07/25/2013): Completed about 09/2010 [...] (01/01/2010): Per Obesity Taxonomy Heterozygous MTHFR mutation [id number] 07/28/2017 documented as of this encounter (statuses as of 11/14/2024) Immunizations Name Administration Dates Next Due COVID-19 [...] documented in this encounter Progress Notes * Latasha Cuellar RPh - 11/14/2024 8:31 AM EST Images from the original note were not included. Medication Therapy Disease Management - Anticoagulation Patient: Amaya Monteiro | : 1970 Subjective Patient-Reported Symptoms: Patient Findings Positives: Change in diet/appetite (more veggies lately) Negatives: Signs/symptoms of thrombosis, Signs/symptoms of bleeding, Change in health, Change in alcohol use, Change in activity, Upcoming invasive procedure, Missed doses, Extra doses, Change in medications, Bruising Objective Current Warfarin Dose As of 11/14/2024 Warfarin maintenance plan: 10 mg (10 mg x 1) every Sun, Molly; 5 mg (10 mg x 0.5) all other days INR Result As of 11/14/2024 INR goal: 2.0-3.0 INR used for dosin.8 (11/14/2024) Assessment & Plan Warfarin Plan As of 11/14/2024 Full warfarin instructions: 11/14: 10 mg; Otherwise 10 mg every Sun, Molly; 5 mg all other days Next INR check: 12/08/2024 Repeat PT/INR in 3 week(s) Weekly dose: not changed Additional Dosing Information: I spent a total of 10-19 minutes (exact time 10 mins) on the date of service in preparation, delivery, and documentation of the care provided to Amaya Monteiro excluding any time spent in the performance of separately billed services or time spent by another provider/QHP. Latasha Cuellar RPh Clinical Pharmacist 11/14/2024, 8:31 AM documented in this encounter Plan of Treatment Upcoming Encounters Date Type Department Care Team (Late st Contact Info) Description 11/16/2024 8:00 AM EST Office Visit Orthopaedics [facility] [address] [place] [address] Ramu Colby, DO [address] [place] [phone] 11/23/2024 8:00 AM EST Office Visit Orthopaedics [facility] [address] [place] [address] Ramu Colby, [address] [place] [phone] 11/24/2024 7:15 AM EST Cardiac Studies Cardiac Studies, [facility] [address] [facility] [place] [address] 12/08/2024 7:30 AM EST [facility] [address] [facility] [phone] [address] [address] 01/09/2025 10:20 AM EDT Office Visit General Internal Medicine [facility] [place] [address] [place] [address] Krzysztof Pickering MD [address] [place] [address] 01/13/2025 7:15 AM EDT Imaging Radiology [facility] [address] [place] [phone] 05/15/2025 10:00 AM EDT Office Visit Endocrinology [address] [place] [phone] Kylee Cox MD [address] [place] [address] Scheduled Procedures Name Priority Associated Diagnoses Date/Ti [...] 01/12/2024, 040 06/2024, 12/29/2022, Additional history exists GFR 03/21/2025 [...] Comments INR FINGERSTICK, POINT OF CARE STAT 11/14/2024 8:34 AM EST Factor 5 Leiden mutation, heterozygous (HCC) Heterozygous MTHFR mutation C677T Anticoagulation management encounter documented in this encounter Results * INR FINGERSTICK, POINT OF CARE (11/14/2024 8:34 AM EST) Fingerstick INR 1.8 INR 8:36 AM EST [facility]- Blood 11/14/2024 8:34 AM EST 11/14/2024 8:36 AM EST [facility]ative [facility] - 11/14/2024 8:36 AM EST Therapeutic ranges for non-operative patients: Prophylaxsis/treatment of DVT: (Range:2.0-3.0) Treatment of pulmonary embolism:(Range:2.0-3.0) Prevention of systemic embolism from: -tissue heart valves -acute myocardial infarction -valvular heart disease -atrial fibrillation (Range: 2.0-3.0) Mechanical prosthetic valves: (Range: 2.5-3.5) us Latasha Cuellar [facility] LAB POINT OF CARE TEST DOCKED DEVICE UNSOLICITED RESULTS Final Result [facility] [place] [address], [facility] documented in this encounter Visit Diagnoses [...] and were consensually agreed upon. Care Teams Neck Fitter Relationship Specialty Start Date End Date Krzysztof Pickering MD [facility] [place] [address] PCP - General Internal Medicine 06/19/16 documented as of this encounter"
--- OUTSIDE RECORDS SUMMARY | 2025-02-20 22:52 | External Medical Summary | Summary of Care ---
Author Name Unknown Organization [facility] Address [address] [place] [address] Phone [phone] Care Team Providers Care Vp Of Technology Name Role Phone Krzysztof Pickering MD Primary Care Provider + Reason for Visit * Reason Onset Date Comments FYI 11/17/2024 Encounter Details Date Type Department Care Team (Late st Contact Info) Description 11/17/2024 Telephone General Internal Medicine [facility] [address] [facility] [place] [address] Krzysztof Pickering MD [address] [place] [address] FYI Allergies Active Allergy Reactions Criticality Noted Date Comments Latex 08/16/2010 Takes skin off with the bandaid Bacitracin-Polymyxin B Other (Please comment) 05/22/2021 Redness and film around edge when applied to skin Nylon 12 07/04/2010 Infection suture line Adhesive Tape 05/14/2007 Bandaids has to use Cloth tape. documented as of this encounter (statuses as of 11/17/2024) Medications Folic Acid 5 MG CAPS Take [...] as of this encounter (statuses as of 11/17/2024) Active Problems Problem Noted Date Diagnosed Date [...] cwp, nocturnal ox 08/21/11 CPAP 5-15 cwp [facility] MEDICATION USE AGREEMENT 12/30/2006 Overview (02/20/2009): 02/06/09: Urine screen negative of oxycodone Spondylolisthesis 08/19/2006 Allergic rhinitis due to pollen 01/24/2004 Heterozygous MTHFR mutation C677T documented as of this encounter (statuses as of 11/17/2024) Resolved Problems Problem Noted Date Diagnosed Date [...] Nocturnal oxygen desaturation 07/25/2013 04/19/2019 [facility] OTHER*[id number] 02/04/2013 07/25/2013 Obesity, morbid (more than 1 00 lbs over ideal weight or BMI > 40) 08/09/2012 07/09/2017 Overview: Per Obesity protocol #1 BMI 70 and over, adult 12/04/201111/28 Obstructive sleep apnea syndrome 09/04/2011 10/02/[address] [facility] Other*[id number] 07/07/2011 05/07/2016 Morbid Obesity, BMI > 40 05/04/201105/2011 Adult body mass index 60.0-69.9 02/02/2011 12/04/2011 Morbid Obesity, BMI > 40 11/20/201010/2010 [facility]*[id number] 07/08/2010 12/18/2015 Overview (12/18/2015): 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 Research*[id number] 03/19/2010 06/26/2010 [facility] OTHER*[id number] 03/19/2010 03/10/2024 Overview (07/25/2013): Completed about 09/2010 [...] (01/01/2010): Per Obesity Taxonomy Heterozygous MTHFR mutation E8783N 07/28/2017 documented as of this encounter (statuses as of 11/17/2024) Immunizations Name Administration Dates Next Due COVID-19 [...] you for being a valued patient with [facility]. As part of [facility]’s continued effort to make better health easy, [...] 8:00 AM EST Office Visit Orthopaedics [facility] [address] [place] [phone] Ramu Colby, [address] [place] [phone] 11/24/2024 7:15 AM EST Cardiac Studies Cardiac Studies, [facility] [address] [place] [address] 11/30/2024 8:45 AM EST Office Visit Orthopaedics [facility] [address] [place] [phone] Ramu Colby, [address] [place] [address] 12/08/2024 7:30 AM EST Anticoagulation Pharmacy, [facility] [address] [place] [phone] [facility] [address] [facility] [place] [place] [address] 01/09/2025 10:20 AM EDT Office Visit General Internal Medicine [facility] [address] [facility] [place] [address] Krzysztof Pickering MD [address] [facility] [place] [address] 01/13/2025 7:15 AM EDT Imaging Radiology [address] [place] [phone] 05/15/2025 10:00 AM EDT Office Visit Endocrinology [address] [place] [phone] Kylee Cox MD [address] [place], [place] [address] Scheduled Procedures Name Priority Associated Diagnoses Date/Ti [...] 11/04/2016, Additional history exists Colonoscopy 12/10/2026 12/11/2023, 03/0 05/2024, 02/17/2018 Colorectal Cancer Screening 12/10/2026 Diabetes [...] and were consensually agreed upon. Care Teams Vp Of Technology Relationship Specialty Start Date End Date Krzysztof Pickering MD [address] [facility] [place] [address] PCP - General Internal Medicine 06/19/16 documented as of this encounter
--- OUTSIDE RECORDS SUMMARY | 2025-02-20 22:52 | External Medical Summary ---
Author Name Unknown Address Unknown Organization K01:LABORATORY [facility] - [address] [facility] [address] Laboratory Report Ordering Provider Test Date Status TONE PEARCE 11/23/2024 07:12:04 Final Observation Date Value Abnormality Reference (Units ) Status TSH 11/23/2024 07:12:04 2.17 0.27-4.20 (uIU/mL) Final Performing Location LABORATORY [facility] - [address] [facility] [address]
--- OUTSIDE RECORDS SUMMARY | 2025-02-20 22:52 | External Medical Summary ---
Author Name Unknown Address Unknown Organization K01:[facility] [place] [address] [facility] [place] [address] Laboratory Report Ordering Provider Test Date Status DO KATELYNCATHYTEIN 11/23/2024 07:12:04 Final Observation Date Value Abnormality Reference (Units ) Status Triglyceride 11/23/2024 07:12:04 48 <=174 ( mg/dL) Final Triglyceride Reference Range s (mg/dL):
<150 Acceptable
150-174 Borderline high
175-499 High
>=500 Very high Cholesterol 11/23/2024 07:12:04 185 <200 (mg /dL) Final Total Cholesterol Reference Ranges (mg/dL):
<200 Desirable
200-239 Borderline high
>=240 High HDL 11/23/2024 07:12:04 80 >49 (mg/dL ) Final HDL Cholesterol Reference Ra nges (mg/dL):
>=60 High (Desirable)
<50 Low (Undesirable) For Females
<40 Low (Undesirable) For Males NON-HDL CHOLESTEROL 11/23/2024 07:12:04 105 <=159 (mg/dL) Final Non-HDL Cholesterol Referenc e Range (mg/dL):
<100 Target level for high risk ASCVD patient
<130 Optimal for general population
130-159 Near optimal for general population
160-189 Borderline High
190-219 High
>=220 Very High LDL, (calculated) 11/23/2024 07:12:04 95 <= 129 (mg/dL) Final LDL Cholesterol Reference Ra nges (mg/dL):
<70 Target level for high risk ASCVD patient
<100 Optimal for general population
100-129 Near optimal for general population
130-159 Borderline high
160-189 High
>=190 Very high Performing Location [facility] [place] [address] [place] [address]
--- OUTSIDE RECORDS SUMMARY | 2025-02-20 22:52 | External Medical Summary | Summary of Care ---
Author Name Unknown Organization [facility] Address [address] [place] [address] Phone [phone] Care Team Providers Care Lease Purchase Driver Name Role Phone Krzysztof Pickering MD Primary Care Provider + Reason for Visit * Reason Comments Knee Pain Bilateral Encounter Details Date Type Department Care Team (Latest Contact Info) Description 11/09/2024 8:00 AM EST Office Visit [facility]opa[facility] [address] [place] [phone] Ramu Colby, [address] [place] [phone] Primary osteoarthritis of both knees* Allergies Active [...] cwp, nocturnal ox 08/21/11 CPAP 5-15 cwp [facility] MEDICATION USE AGREEMENT 12/30/2006 Overview (02/20/2009): 02/06/09: [...] Nocturnal oxygen desaturation 07/25/2013 04/19/2019 [facility] OTHER*[id number] 02/04/2013 07/25/2013 Obesity, morbid (more than 1 00 lbs over ideal weight or BMI > 40) 08/09/2012 07/09/2017 Overview: Per Obesity protocol #1 BMI 70 and over, adult 12/04/201111/28 Obstructive sleep apnea syndrome 09/04/2011 10/02/2011 Genetic Sleep Disorder [facility] Other*[id number] 07/07/2011 05/07/2016 Morbid Obesity, BMI > 40 05/04/201105/2011 Adult body mass index 60.0-69.9 02/02/2011 12/04/2011 Morbid Obesity, BMI > 40 11/20/201010/2010 [facility]*[id number] 07/08/2010 12/18/2015 Overview (12/18/2015): 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 Start [...] INJECTION, ORTHO NAHUN Mcguire DOA, FAAFP, RMSK [facility] Sports Coal ChemistRoute Manager Primary Care Sports Medicine Team Physician Pending Sale To [facility] Office locations: Orthopaedics [place] [address] [address] This chart was completed in part utilizing [employer] Voice Recognition Software. Grammatical errors, random [...] Ramu Colby DO Sports Medicine Primary Care [facility] [address] [place] [address] documented in this encounter Nursing Notes * Cierra Salcido LPN - 11/09/2024 7:53 AM EST Bilateral knee Gelsyn injections. Cierra hill LPN documented in this encounter Plan of Treatment Upcoming Encounters Date Type Department Care Team (Late st Contact Info) Description 11/14/2024 8:30 AM EST [facility]ticoagulation [facility], [facility] [address] [facility] [place] [phone] [facility] [address] [place] [address] 11/14/2024 11:30 AM EST Office Visit [facility] [address] [place] [phone] Ramu Colby DO [address] [place] [phone] 11/16/2024 8:00 AM EST Office Visit [facility] [address] [place] [phone] Ramu Colby DO [address] [place] [phone] 11/23/2024 8:00 AM EST Office Visit [facility] [address] [place] [phone] Ramu Colby DO [address] [place] [phone] 01/09/2025 10:20 AM EDT Office Visit General Internal Medicine [facility] [address] [facility] [place] [address] Krzysztof Pickering MD [address] [facility] [place] [address] 01/13/2025 7:15 AM EDT Imaging Radiology [address] [place] [address] 05/15/2025 10:00 AM EDT Office Visit Endocrinology [address] [place] [phone] Kylee Cox MD [address] [place] [address] Scheduled Procedures Name Priority Associated Diagnoses Date/Ti [...] Colby DO Sports Medicine Primary Care Orthopaedics [place] [address] [facility] [address] Procedure Note Ramu Colby DO - 11/09/2024 [...] Colby, DO Sports Medicine Primary Care [facility] [address] [place] [phone] us Ramu Colby DO RAD ULTRASOUND Final [...] and were consensually agreed upon. Care Teams Lease Purchase Driver Relationship Specialty Start Date End Date Krzysztof Pickering MD [address] [place] [address] PCP - General Internal Medicine 06/19/16 documented as of this encounter
--- OUTSIDE RECORDS SUMMARY | 2025-02-20 22:53 | External Medical Summary | Summary of Care ---
Author Name Unknown Organization [facility] Address [address] [place] [address] Phone [phone] Care Team Providers Care Fixed Capital Clerk Name Role Phone Krzysztof Pickering MD Primary Care Provider + Reason for Visit * Reason Onset Date Comments Fax 08/05/2024 Encounter Details Date Type Department Care Team (Late st Contact Info) Description 08/05/2024 Telephone General Internal Medicine [facility] [address] [place] [address] Lili Hernandez MD [address] [place] [address] Fax Allergies Active Allergy Reactions Criticality Noted Date Comments Latex 08/16/2010 Takes skin off with the bandaid Bacitracin-Polymyxin B Other (Please comment) 05/22/2021 Redness and film around edge when applied to skin Nylon 12 07/04/2010 Infection suture line Adhesive Tape 05/14/2007 Bandaids has to use Cloth tape. documented as of this encounter (statuses as of 11/05/2024) Medications Folic Acid 5 MG CAPS Take [...] or chew. 90 Capsule 3 4 Active documented as of this encounter (statuses as of 11/05/2024) Active Problems Problem Noted Date Diagnosed Date [...] as of this encounter (statuses as of 11/05/2024) Resolved Problems Problem Noted Date Diagnosed Date [...] Nocturnal oxygen desaturation 07/25/2013 04/19/2019 [facility] OTHER*[id number] 02/04/2013 07/25/2013 Obesity, morbid (more than 1 00 lbs over ideal weight or BMI > 40) 08/09/2012 07/09/2017 Overview: Per Obesity protocol #1 BMI 70 and over, adult 12/04/201111/28 Obstructive sleep apnea syndrome 09/04/2011 10/02/2011 Genetic Sleep Disorder [facility] Other*[id number] 07/07/2011 05/07/2016 Morbid Obesity, BMI > 40 05/04/201105/2011 Adult body mass index 60.0-69.9 02/02/2011 12/04/2011 Morbid Obesity, BMI > 40 11/20/201010/2010 [facility] [employer]*[id number] 07/08/2010 12/18/2015 Overview (12/18/2015): 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 Research*[id number] 03/19/2010 06/26/2010 [facility] OTHER*[id number] 03/19/2010 03/10/2024 Overview (07/25/2013): Completed about 09/2010 [...] (01/01/2010): Per Obesity Taxonomy Heterozygous MTHFR mutation M7026N 07/28/2017 documented as of this encounter (statuses as of 11/05/2024) Immunizations Name Administration Dates Next Due COVID-19 [...] Influenza, Quadriva lent, No Preserve, IM 06/19/2016,08/01/2015 TDAP (age 10 and older)(Boostrix) 03/24/2017 TDAP, [...] encounter Miscellaneous Notes * Telephone Encounter - Miriam Castillo OSA - 08/05/2024 3:48 PM EDT Caller requesting the following information to be faxed: Name/Company of caller: [employer] Pharmacist Information requested to be faxed: Script for Oxycodone Acetaminophen [phone] Fax number: [phone] Attention to Name/Company: Attn: [employer] Any additional information?: needs script. Original was deleted by accident. documented in this encounter Plan of Treatment Upcoming Encounters Date Type Department Care Team (Late st Contact Info) Description 11/09/2024 8:00 AM EST Office Visit Orthopaedics [facility] [address] [place], [place] [phone] Ramu Colby, DO [address] [place], [place] [phone] 11/14/2024 8:30 AM EST [facility]ticoagulation [facility] [address] [facility] [place] [phone] [facility] [address] [facility] [address] 11/14/2024 11:30 AM EST Office Visit [facility] [address] [place], [place] [phone] Ramu Colby, DO [address] [place], [place] [phone] 11/16/2024 8:00 AM EST Office Visit [facility] [address] [place] [phone] Ramu Colby, DO [address] [place], [place] [phone] 11/23/2024 8:00 AM EST Office Visit [facility] [address] [place] [phone] Ramu Colby, DO [address] [place] [phone] 01/09/2025 10:20 AM EDT Office Visit General Internal Medicine [facility] [address] [place], [place] [address] Krzysztof Pickering MD [address] [place] [address] 01/13/2025 7:15 AM EDT Imaging Radiology [facility] [address] [facility] [place] [address] [place] [phone] 05/15/2025 10:00 AM EDT Office Visit Endocrinology [address] [place] [phone] Kylee Cox MD [address] [place] [address] Scheduled Procedures Name Priority Associated Diagnoses [...] and were consensually agreed upon. Care Teams Fixed Capital Clerk Relationship Specialty Start Date End Date Krzysztof Pickering MD 200 [place] [address] PCP - General Internal Medicine 06/19/16 documented as of this encounter
--- OUTSIDE RECORDS SUMMARY | 2025-02-20 22:53 | External Medical Summary | Summary of Care ---
Author Name Unknown Organization [facility] Address [address] [place] [address] Phone [phone] Care Team Providers Care Transition Specialist Name Role Phone Krzysztof Pickering MD Primary Care Provider + Reason for Visit * Reason Comments Knee Pain Bilateral Encounter Details Date Type Department Care Team (Latest Contact Info) Description 11/09/2024 8:00 AM EST Office Visit Orthopaedics [facility] [address] [place] [phone] Ramu Colby, [address] [place] [phone] Primary osteoarthritis of both knees* Allergies Active [...] cwp, nocturnal ox 08/21/11 CPAP 5-15 cwp [facility] MEDICATION USE AGREEMENT 12/30/2006 Overview [...] Nocturnal oxygen desaturation 07/25/2013 04/19/2019 [facility] OTHER*[id number] 02/04/2013 07/25/2013 Obesity, morbid (more than 1 00 lbs over ideal weight or BMI > 40) 08/09/2012 07/09/2017 Overview: Per Obesity protocol #1 BMI 70 and over, adult 12/04/201111/28 Obstructive sleep apnea syndrome 09/04/2011 10/02/2011 Genetic Sleep Disorder Resea [facility] Other*[id number] 07/07/2011 05/07/2016 Morbid Obesity, BMI > 40 05/04/201105/2011 Adult body mass index 60.0-69.9 02/02/2011 12/04/2011 Morbid Obesity, BMI > 40 11/20/201010/2010 [facility] [employer]*[id number] 07/08/2010 12/18/2015 Overview (12/18/2015): 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 Start [...] INJECTION, ORTHO NAHUN Mcguire DOA, FAAFP, RMSK [facility] Sports Branch Logistics SupervisorChannel Sales Director Primary Care Sports Medicine Team Physician [facility] Office locations: Orthopaedics [place] [address] [address] This chart was completed in part utilizing [employer] Speech Voice Recognition Software. Grammatical errors, random [...] Ramu Colby DO Sports Medicine Primary Care [facility] [address] [place] [address] documented in this encounter Nursing Notes * Cierra Salcido LPN - 11/09/2024 7:53 AM EST Bilateral knee Gelsyn injections. Cierra hill LPN documented in this encounter Plan of Treatment Upcoming Encounters Date Type Department Care Team (Late st Contact Info) Description 11/14/2024 8:30 AM EST [facility], [facility] [address] [facility] [place] [phone] [facility] [address] [place] [address] 11/14/2024 11:30 AM EST Office Visit [facility] [address] [place] [phone] Ramu Colby DO [address] [place] [phone] 11/16/2024 8:00 AM EST Office Visit [facility] [address] [place] [phone] Ramu Colby DO [address] [place] [phone] 11/23/2024 8:00 AM EST Office Visit [facility] [address] [place] [phone] Ramu Colby DO [address] [place] [phone] 01/09/2025 10:20 AM EDT Office Visit General Internal Medicine [facility] [address] [facility] [place] [address] Krzysztof Pickering MD [address] [facility] [place] [address] 01/13/2025 7:15 AM EDT Imaging Radiology [address] [place] [address] 05/15/2025 10:00 AM EDT Office Visit Endocrinology [address] [place] [phone] Kylee Cox MD [address] [place] [address] Scheduled Procedures Name Priority Associated Diagnoses Date/Ti [...] Colby DO Sports Medicine Primary Care [facility] [place] [address] [facility] [address] Procedure Note Ramu Colby DO - 11/09/2024 [...] Colby, DO Sports Medicine Primary Care Orthopa[facility] [address] [place] [address] us Ramu Colby DO RAD ULTRASOUND Final [...] and were consensually agreed upon. Care Teams Transition Specialist Relationship Specialty Start Date End Date Krzysztof Pickering MD [address] [facility] [place] [address] PCP - General Internal Medicine 06/19/16 documented as of this encounter
--- OUTSIDE RECORDS SUMMARY | 2025-02-20 22:53 | External Medical Summary | Summary of Care ---
Author Name Unknown Organization [facility] Address [address] [place] [address] Phone [phone] Care Team Providers Care Cad Design Engineer Name Role Phone Krzysztof Pickering MD Primary Care Provider + Reason for Visit * Reason Onset Date Comments Pre Cert/Prior Auth 11/07/2024 Gelsyn. Encounter Details Date Type Department Care Team (Late st Contact Info) Description 11/07/2024 Telephone Orthopaedics [facility] [address] [place] [address] Jessica Membreno DO [address] [place] [address] Pre Cert/Prior Auth (Gelsyn.) Allergies Active Allergy Reactions Criticality Noted Date Comments Latex 08/16/2010 Takes skin off with the bandaid Bacitracin-Polymyxin B Other (Please comment) 05/22/2021 Redness and film around edge when applied to skin Nylon 12 07/04/2010 Infection suture line Adhesive Tape 05/14/2007 Bandaids has to use Cloth tape. documented as of this encounter (statuses as of 11/08/2024) Medications Folic Acid 5 MG CAPS Take [...] as of this encounter (statuses as of 11/08/2024) Active Problems Problem Noted Date Diagnosed Date [...] as of this encounter (statuses as of 11/08/2024) Resolved Problems Problem Noted Date Diagnosed Date [...] Nocturnal oxygen desaturation 07/25/2013 04/19/2019 [facility] OTHER*[id number] 02/04/2013 07/25/2013 Obesity, morbid (more than 1 00 lbs over ideal weight or BMI > 40) 08/09/2012 07/09/2017 Overview: Per Obesity protocol #1 BMI 70 and over, adult 12/04/201111/28 Obstructive sleep apnea syndrome 09/04/2011 10/02/2011 Genetic Sleep Disorder [facility] Other*[id number] 07/07/2011 05/07/2016 Morbid Obesity, BMI > 40 05/04/201105/2011 Adult body mass index 60.0-69.9 02/02/2011 12/04/2011 Morbid Obesity, BMI > 40 11/20/201010/2010 [facility] [employer]*[id number] 07/08/2010 12/18/2015 Overview (12/18/2015): 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 Research*[id number] 03/19/2010 06/26/2010 [facility] OTHER*[id number] 03/19/2010 03/10/2024 Overview (07/25/2013): Completed about 09/2010 [...] (01/01/2010): Per Obesity Taxonomy Heterozygous MTHFR mutation [id number] 07/28/2017 documented as of this encounter (statuses as of 11/08/2024) Immunizations Name Administration Dates Next Due COVID-19 [...] Ellen Perez RN * Do you have serious difficulty [...] Ellen Perez RN documented in this encounter Miscellaneous Notes * Telephone Encounter - Saskia Velázquez OSA - 11/08/2024 5:43 AM EST SEE REFERRAL MESSAGE * Telephone Encounter - Debbie Ramires MED ASSIST - 11/07/2024 4:05 PM EST Orthopaedics Pre-Cert Request Medication/Disease State Information: Medication: Hyaluronate- Gelsyn-3 ([id number]): inject 16.8 mg (2 mL) once weekly for 3 weeks (total of 6 injections). Route to [id number] Is there radiological proof(x-ray, cat scan, mri of osteoarthritis? yesIf yes, date of scan: Has the patient tried physical therapy?yes Has the patient tried tylenol or NSAIDs?yes Has the patient failed corticosteroid injections of the knee?yes Has the patient tried weight loss?no Has the patient tried knee bracing?yes Has the patient tried a home exercise program?no Diagnosis (including ICD-10): Bilateral Osteoarthritis of Knee- M17.0 Medication(s) Tried/Failed/Contraindicated: Is this for continuation of therapy?(If yes, was there improvement?) No See corresponding visit note(s) for additional supporting clinical information. Office Information: Prescriber: jessica membreno documented in this encounter Plan of Treatment Upcoming Encounters Date Type Department Care Team (Late st Contact Info) Description 11/09/2024 8:00 AM EST Office Visit Orthopaedics [facility] [address] [place] [phone] Jessica Membreno, [address] [place] [address] 11/14/2024 8:30 AM EST Anticoagulation Pharmacy, [facility] [address] [place] [phone] [place] [address] 11/14/2024 11:30 AM EST Office Visit Orthopaedics [facility] [address] [place] [phone] Jessica Membreno, DO [address] [place] [address] 11/16/2024 8:00 AM EST Office Visit Orthopaedics [facility] [address] [place] [phone] Jessica Membreno, DO [address] [place] [address] 11/23/2024 8:00 AM EST Office Visit Orthopaedics [facility] [address] [place] [address] Jessica Membreno, DO [address] [place] [phone] 01/09/2025 10:20 AM EDT Office Visit General Internal Medicine [facility] [address] [place] [address] Krzysztof Pickering MD [address] [place] [address] 01/13/2025 7:15 AM EDT Imaging Radiology [address] [place] [address] 05/15/2025 10:00 AM EDT Office Visit Endocrinology [address] [place] [address] Kylee Cox MD [address] [place], [...] and were consensually agreed upon. Care Teams Cad Design Engineer Relationship Specialty Start Date End Date Krzysztof Pickering MD [address] [place] [address] PCP - General Internal Medicine 06/19/16 documented as of this encounter
--- OUTSIDE RECORDS SUMMARY | 2025-02-20 22:53 | External Medical Summary | Summary of Care ---
Author Name Unknown Organization [facility] Address [address] [place] [address] Phone [phone] Care Team Providers Care Chainstitch Felled Seam Operator Name Role Phone Krzysztof Pickering MD Primary Care Provider + Reason for Visit * Reason Onset Date Comments Pre Cert/Prior Auth 11/07/2024 Gelsyn. Encounter Details Date Type Department Care Team (Late st Contact Info) Description 11/07/2024 Telephone Orthopaedics [facility] [address] [place] [address] Jessica Membreno DO [address] [place] [address] Pre Cert/Prior Auth (Gelsyn.) Allergies Active [...] Date Diagnosed Date Major depressive disorder, s acrl episode, severe with psychotic features 10/11/2024 Hypothyroidism [...] cwp, nocturnal ox 08/21/11 CPAP 5-15 cwp [facility] MEDICATION USE AGREEMENT 12/30/2006 Overview (02/20/2009): [...] Nocturnal oxygen desaturation 07/25/2013 04/19/2019 [facility] OTHER*[id number] 02/04/2013 07/25/2013 Obesity, morbid (more than 1 00 lbs over ideal weight or BMI > 40) 08/09/2012 07/09/2017 Overview: Per Obesity protocol #1 BMI 70 and over, adult 12/04/201111/28 Obstructive sleep apnea syndrome 09/04/2011 10/02/2011 Genetic Sleep Disorder Resea [facility] Other*[id number] 07/07/2011 05/07/2016 Morbid Obesity, BMI > 40 05/04/201105/2011 Adult body mass index 60.0-69.9 02/02/2011 12/04/2011 Morbid Obesity, BMI > 40 11/20/201010/2010 [facility] [employer]*[id number] 07/08/2010 12/18/2015 Overview (12/18/2015): 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 Route to [id number] Is there radiological proof(x-ray, cat scan, mri [...] 8:00 AM EST Office Visit Orthopaedics [facility] [address] [place] [phone] Jessica Membreno, [address] [place] [address] 11/14/2024 8:30 AM EST Anticoagulation Pharmacy, [facility] [address] [place] [phone] [place] [address] 11/14/2024 11:30 AM EST Office Visit Orthopaedics [facility] [address] [place] [phone] Jessica Membreno, DO [address] [place] [address] 11/16/2024 8:00 AM EST Office Visit Orthopaedics [facility] [address] [place] [phone] Jessica Membreno, DO [address] [place] [address] 11/23/2024 8:00 AM EST Office Visit Orthopaedics [facility] [address] [place] [phone] Jessica Membreno, DO [address] [place] [address] 01/09/2025 10:20 AM EDT Office Visit General Internal Medicine [facility] [address] [facility] [place] [address] Krzysztof Pickering MD [address] [place] [place] [address] 01/13/2025 7:15 AM EDT Imaging Radiology [address] [place] [address] 05/15/2025 10:00 AM EDT Office [...] and were consensually agreed upon. Care Teams Chainstitch Felled Seam Operator Relationship Specialty Start Date End Date Krzysztof Pickering MD [address] [place] [place] [address] PCP - General Internal Medicine 06/19/16 documented as of this encounter
--- OUTSIDE RECORDS SUMMARY | 2025-02-20 22:53 | External Medical Summary | Summary of Care ---
Author Name Unknown Organization [facility] Address [address] [place] [address] Phone [phone] Care Team Providers Care Mild Disabilities Teacher Name Role Phone Krzysztof Pickering MD Primary Care Provider + Reason for Visit * Reason Onset Date Comments Pre Cert/Prior Auth 11/07/2024 Gelsyn. Encounter Details Date Type Department Care Team (Late st Contact Info) Description 11/07/[address] [facility] [address] [place] [address] Jessica Membreno DO [address] [place] [address] Pre Cert/Prior Auth (Gelsyn.) Allergies Active [...] Nocturnal oxygen desaturation 07/25/2013 04/19/2019 [facility] OTHER*[id number] 02/04/2013 07/25/2013 Obesity, morbid (more than 1 00 lbs over ideal weight or BMI > 40) 08/09/2012 07/09/2017 Overview: Per Obesity protocol #1 BMI 70 and over, adult 12/04/201111/28 Obstructive sleep apnea syndrome 09/04/2011 10/02/[address] 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 Route to [id number] Is there radiological proof(x-ray, cat scan, mri [...] 11/09/2024 8:00 AM EST Office Visit Orthopaedics [facility] [address] [place] [phone] Jessica Membreno, [address] [place] [phone] 11/14/2024 8:30 AM EST Anticoagulation Pharmacy, [facility] [address] [place] [phone] [place] [address] 11/14/2024 11:30 AM EST Office Visit Orthopaedics [facility] [address] [place] [phone] Jessica Membreno, DO [address] [place] [phone] 11/16/2024 8:00 AM EST Office Visit Orthopaedics [facility] [address] [place] [phone] Jessica Membreno, DO [address] [place] [phone] 11/23/2024 8:00 AM EST Office Visit Orthopaedics [facility] [address] [place] [phone] Jessica Membreno, DO [address] [place] [address] 01/09/2025 10:20 AM EDT Office Visit General Internal Medicine [facility] [address] [place] [address] Krzysztof Pickering MD [address] [place] [address] 01/13/2025 7:15 AM EDT Imaging Radiology [address] [place] [address] 05/15/2025 10:00 AM EDT Office [...] and were consensually agreed upon. Care Teams Mild Disabilities Teacher Relationship Specialty Start Date End Date Krzysztof Pickering MD [address] [place] [address] PCP - General Internal Medicine 06/19/16 documented as of this encounter
--- OUTSIDE RECORDS SUMMARY | 2025-02-20 22:53 | External Medical Summary | Summary of Care ---
Author Name Unknown Organization [facility] Address [address] [place] [address] Phone [phone] Care Team Providers Care Ui Architect Name Role Phone Krzysztof Pickering MD Primary Care Provider + Reason for Visit * Reason Onset Date Comments Pre Cert/Prior Auth 11/07/2024 Gelsyn. Encounter Details Date Type Department Care Team (Late st Contact Info) Description 11/07/2024 Telephone Orthopaedics [facility] [address] [place] [address] Jessica Membreno DO [address] [place] [address] Pre Cert/Prior Auth (Gelsyn.) Allergies Active [...] Nocturnal oxygen desaturation 07/25/2013 04/19/2019 [facility] OTHER*[id number] 02/04/2013 07/25/2013 Obesity, morbid (more than 1 00 lbs over ideal weight or BMI > 40) 08/09/2012 07/09/2017 Overview: Per Obesity protocol #1 BMI 70 and over, adult 12/04/201111/28 Obstructive sleep apnea syndrome 09/04/2011 10/02/2011 Genetic Sleep Disorder Resea [facility] Other*[id number] 07/07/2011 05/07/2016 Morbid Obesity, BMI > 40 05/04/201105/2011 Adult body mass index 60.0-69.9 02/02/2011 12/04/2011 Morbid Obesity, BMI > 40 11/20/201010/2010 [facility] [employer]*[id number] 07/08/2010 12/18/2015 Overview (12/18/2015): 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 Route to [id number] Is there radiological proof(x-ray, cat scan, mri [...] 11/09/2024 8:00 AM EST Office Visit Orthopaedics [facility] [address] [place] [address] Jessica Membreno, [address] [place] [address] 11/14/2024 8:30 AM EST Anticoagulation Pharmacy, [facility] [address] [place] [phone] [place] [address] 11/14/2024 11:30 AM EST Office Visit Orthopaedics [facility] [address] [place] [phone] Jessica Membreno, DO [address] [place] [address] 11/16/2024 8:00 AM EST Office Visit Orthopaedics [facility] [address] [place] [address] Jessica Membreno, DO [address] [place] [phone] 11/23/2024 8:00 AM EST Office Visit Orthopaedics [facility] [address] [place] [address] Jessica Membreno, DO [address] [place] [address] 01/09/2025 10:20 AM EDT Office Visit General Internal Medicine [facility] [address] [facility] [place] [address] Krzysztof Pickering MD [address] [facility] [place] [address] 01/13/2025 7:15 AM EDT Imaging Radiology [address] [place] [address] 05/15/2025 10:00 AM EDT Office [...] and were consensually agreed upon. Care Teams Ui Architect Relationship Specialty Start Date End Date Krzysztof Pickering MD [address] [facility] [place] [address] PCP - General Internal Medicine 06/19/16 documented as of this encounter
--- OUTSIDE RECORDS SUMMARY | 2025-02-20 22:53 | External Medical Summary | Summary of Care ---
Author Name Unknown Organization [facility] Address [address] [place] [address] Phone [phone] Care Team Providers Care Director Of Slot Operations Name Role Phone Krzysztof Pickering MD Primary Care Provider + Encounter Details Date Type Department Care Team (Late st Contact Info) Description 10/24/2024 Population Health External Data Unspecified Department Allergies Active Allergy Reactions Criticality Noted Date Comments Latex 08/16/2010 Takes skin off with the bandaid Bacitracin-Polymyxin B Other (Please comment) 05/22/2021 Redness and film around edge when applied to skin Nylon 12 07/04/2010 Infection suture line Adhesive Tape 05/14/2007 Bandaids has to use Cloth tape. documented as of this encounter (statuses as of 10/24/2024) Medications Folic Acid 5 MG CAPS Take [...] for Pain, Severe. Ongoing therapy 120 Tablet 4 Active documented as of this encounter (statuses as of 10/24/2024) Active Problems Problem Noted Date Diagnosed Date [...] cwp, nocturnal ox 08/21/11 CPAP 5-15 cwp [facility] MEDICATION USE AGREEMENT 12/30/2006 Overview (02/20/2009): 02/06/09: Urine screen negative of oxycodone Spondylolisthesis 08/19/2006 Allergic rhinitis due to pollen 01/24/2004 Heterozygous MTHFR mutation C677T documented as of this encounter (statuses as of 10/24/2024) Resolved Problems Problem Noted Date Diagnosed Date [...] Nocturnal oxygen desaturation 07/25/2013 04/19/2019 [facility] OTHER*[id number] 02/04/2013 07/25/2013 Obesity, morbid (more than 1 00 lbs over ideal weight or BMI > 40) 08/09/2012 07/09/2017 Overview: Per Obesity protocol #1 BMI 70 and over, adult 12/04/201111/28 Obstructive sleep apnea syndrome 09/04/2011 10/02/2011 Genetic Sleep Disorder [facility]ea [facility] Other*[id number] 07/07/2011 05/07/2016 Morbid Obesity, BMI > 40 05/04/201105/2011 Adult body mass index 60.0-69.9 02/02/2011 12/04/2011 Morbid Obesity, BMI > 40 11/20/201010/2010 [employer]*[id number] 07/08/2010 12/18/2015 Overview (12/18/2015): 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 Research*[id number] 03/19/2010 06/26/2010 [facility] OTHER*[id number] 03/19/2010 03/10/2024 Overview (07/25/2013): Completed about 09/2010 [...] (01/01/2010): Per Obesity Taxonomy Heterozygous MTHFR mutation P3138C 07/28/2017 documented as of this encounter (statuses as of 10/24/2024) Immunizations Name Administration Dates Next Due COVID-19 [...] 11/09/2024 8:00 AM EST Office Visit Orthopaedics [facility] [address] [place] [phone] Ramu Colby, DO [address] [place] [address] 11/14/2024 8:30 AM EST Anticoagulation Pharmacy, [facility] [address] [place] [place] [phone] [facility] [address] [facility] [place] [address] 11/14/2024 11:30 AM EST Office Visit Orthopaedics [facility] [address] [place] [address] Ramu Colby, DO [address] [place] [address] 11/16/2024 8:00 AM EST Office Visit Orthopaedics [facility] [address] [place] [address] Ramu Colby, DO [address] [place] [address] 11/23/2024 8:00 AM EST Office Visit Orthopaedics [facility] [address] [place] [address] Ramu Colby, DO [address] [place] [address] 01/09/2025 10:20 AM EDT Office Visit General Internal Medicine [facility] [address] [place] [address] Krzysztof Pickering MD [address] [place] [address] 01/13/2025 7:15 AM EDT Imaging Radiology [address] [place] [phone] 05/15/2025 10:00 AM EDT Office Visit Endocrinology [address] [place] [address] Kylee Cox MD [...] 12/29/2022, Additional history exists GFR 03/21/2025 03/21/2024, 060 03/2024, 11/04/2023, Additional history exists TSH 03/21/2025 [...] and were consensually agreed upon. Care Teams Director Of Slot Operations Relationship Specialty Start Date End Date Krzysztof Pickering MD 200 [facility] [address] PCP - General Internal Medicine 06/19/16 documented as of this encounter
--- OUTSIDE RECORDS SUMMARY | 2025-02-20 22:53 | External Medical Summary | Summary of Care ---
Author Name Unknown Organization [facility] Address [address] [place] [address] Phone [phone] Care Team Providers Care Central Supply Assistant Name Role Phone Krzysztof Pickering MD Primary Care Provider + Encounter Details Date Type Department Care Team (Late st Contact Info) Description 10/18/2024 Orders Only PATIENT PORTAL DO NOT DELETE THIS [facility] [id number] Allergies Active Allergy Reactions Criticality Noted Date Comments Latex 08/16/2010 Takes skin off with the bandaid Bacitracin-Polymyxin B Other (Please comment) 05/22/2021 Redness and film around edge when applied to skin Nylon 12 07/04/2010 Infection suture line Adhesive Tape 05/14/2007 Bandaids has to use Cloth tape. documented as of this encounter (statuses as of 10/18/2024) Medications Folic Acid 5 MG CAPS Take [...] as of this encounter (statuses as of 10/18/2024) Active Problems Problem Noted Date Diagnosed Date [...] as of this encounter (statuses as of 10/18/2024) Resolved Problems Problem Noted Date Diagnosed Date [...] Nocturnal oxygen desaturation 07/25/2013 04/19/2019 [facility] OTHER*[id number] 02/04/2013 07/25/2013 Obesity, morbid (more than 1 00 lbs over ideal weight or BMI > 40) 08/09/2012 07/09/2017 Overview: Per Obesity protocol #1 BMI 70 and over, adult 12/04/201111/28 Obstructive sleep apnea syndrome 09/04/2011 10/02/2011 Genetic Sleep Disorder [facility] Other*[id number] 07/07/2011 05/07/2016 Morbid Obesity, BMI > 40 05/04/201105/2011 Adult body mass index 60.0-69.9 02/02/2011 12/04/2011 Morbid Obesity, BMI > 40 11/20/201010/2010 [facility]*[id number] 07/08/2010 12/18/2015 Overview (12/18/2015): 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 Rarely 03/10/2024 Financial Resource [...] Care Team (Late st Contact Info) Description 10/26/2024 10:20 AM EST Office Visit Endocrinology [address] [place] [phone] Kylee Cox MD [address] [place] [address] 11/09/2024 8:00 AM EST Office Visit [facility] [address] [place], [place] [phone] Ramu Colby, DO [address] [place], [place] [address] 11/14/2024 8:30 AM EST [facility] [address] [facility] [phone] [facility] [address] [facility] [place] [address] 11/14/2024 11:30 AM EST Office Visit [facility] [address] [place] [phone] Ramu Colby, DO [address] [place] [address] 11/16/2024 8:00 AM EST Office Visit [facility] [address] [place] [phone] Ramu Colby, DO [address] [place] [address] 11/23/2024 8:00 AM EST Office Visit [facility] [address] [place] [phone] Ramu Colby, DO [address] [place] [address] 01/09/2025 10:20 AM EDT Office Visit General Internal Medicine [facility] [address] [facility] [place] [address] Krzysztof Pickering MD 200 [facility] [place] [address] 01/13/2025 7:15 AM EDT Imaging Radiology [facility]st [facility] [place] [address] [place] [phone] Scheduled Procedures Name Priority Associated Diagnoses Date/Ti [...] and were consensually agreed upon. Care Teams Central Supply Assistant Relationship Specialty Start Date End Date Krzysztof Pickering MD 200 [facility], [place] [address] PCP - General Internal Medicine 06/19/16 documented as of this encounter
--- OUTSIDE RECORDS SUMMARY | 2025-02-20 22:53 | External Medical Summary | Summary of Care ---
Author Name Unknown Organization [facility] Address [address] [place] [address] Phone [phone] Care Team Providers Care Skin Care Technician Name Role Phone Krzysztof Pickering MD Primary Care Provider + Reason for Visit * Reason Onset Date Comments Test Results 10/11/2024 Encounter Details Date Type Department Care Team (Late st Contact Info) Description 10/11/2024 [address]phone General Internal Medicine [facility] [address] [place] [address] Krzysztof Pickering MD [address] [place] [address] Test Results Allergies Active Allergy Reactions Criticality Noted Date Comments Latex 08/16/2010 Takes skin off with the bandaid Bacitracin-Polymyxin B Other (Please comment) 05/22/2021 Redness and film around edge when applied to skin Nylon 12 07/04/2010 Infection suture line Adhesive Tape 05/14/2007 Bandaids has to use Cloth tape. documented as of this encounter (statuses as of 10/17/2024) Medications Folic Acid 5 MG CAPS Take [...] as of this encounter (statuses as of 10/17/2024) Active Problems Problem Noted Date Diagnosed Date [...] cwp, nocturnal ox 08/21/11 CPAP 5-[address] [facility] MEDICATION USE AGREEMENT 12/30/2006 Overview (02/20/2009): 02/06/09: Urine screen negative of oxycodone Spondylolisthesis 08/19/2006 Allergic rhinitis due to pollen 01/24/2004 Heterozygous MTHFR mutation [id number] documented as of this encounter (statuses as of 10/17/2024) Resolved Problems Problem Noted Date Diagnosed Date [...] Nocturnal oxygen desaturation 07/25/2013 04/19/2019 [facility] OTHER*[id number] 02/04/2013 07/25/2013 Obesity, morbid (more than 1 00 lbs over ideal weight or BMI > 40) 08/09/2012 07/09/2017 Overview: Per Obesity protocol #1 BMI 70 and over, adult 12/04/201111/28 Obstructive sleep apnea syndrome 09/04/2011 10/02/2011 Genetic Sleep Disorder [facility] Other*[id number] 07/07/2011 05/07/2016 Morbid Obesity, BMI > 40 05/04/201105/2011 Adult body mass index 60.0-69.9 02/02/2011 12/04/2011 Morbid Obesity, BMI > 40 11/20/201010/2010 [facility] [employer]*[id number] 07/08/2010 12/18/2015 Overview (12/18/2015): 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 Answer Date of Assessment Author No 06/22/2021 5:50 PM EDMary Ellen Amin RN * Do you have serious difficulty [...] encounter Miscellaneous Notes * Telephone Encounter - Lina Armendariz LPN - 10/11/2024 3:27 PM EST Patient is aware and verbalizes understanding. Transferred to scheduling to assist with referral. * Telephone Encounter - Joel Aguilar RN - 10/11/2024 1:47 PM EST Called, left message for patient to return call to the dedicated nurse call center. Please see Dr. Pickering's previous message. Please note ortho/sports med referral is priority: Urgent. Thank you. * Telephone Encounter - Joel Aguilar RN - 10/11/2024 1:45 PM EST ----- Message from Krzysztof Pickering MD sent at 10/11/2024 12:33 PM EST ----- Stat result - shoulder x-ray looks ok, suggest given pain we get her into ortho/sports med, referral placed documented in this encounter Plan of Treatment Upcoming Encounters Date Type Department Care Team (Late st Contact Info) Description 10/26/2024 10:20 AM EST Office Visit Endocrinology [address] [place] [phone] Kylee Cox MD [address] [place] [address] [address] 11/09/2024 8:00 AM EST Office Visit Orthopaedics [facility] [address] [place] [phone] Ramu Colby DO [address] [place] [address] 11/14/2024 8:30 AM EST Anticoagulation [address] [place] [phone] [facility] [address] [facility] [place] [address] 11/14/2024 11:30 AM EST Office Visit [facility] [address] [place] [phone] Ramu Colby, DO [address] [place] [address] 11/16/2024 8:00 AM EST Office Visit [facility] [address] [place] [phone] Ramu Colby, DO [address] [place] [address] 11/23/2024 8:00 AM EST Office Visit [facility] [address] [place] [phone] Ramu Colby, DO [address] [place] [address] 01/09/2025 10:20 AM EDT Office Visit General Internal Medicine [facility] [address] [facility] [place], [place] [address] Krzysztof Pickering MD 200 [facility] [place], [place] [address] 01/13/2025 7:15 AM EDT Imaging Radiology [facility] [address] [address] Scheduled Procedures Name Priority Associated Diagnoses Date/Ti me COLONOSCOPY FLEXIBLE PROXIMA L DIAGNOSTIC Recall History of colonic polyps Health Maintenance Due Date Last Done Comments Cologuard 01/06/2013 Fecal Occult Blood Test 01/06/2013 Sigmoidoscopy 01/06/2013 Pneumococcal Vaccine: 50+ Years (3 of 3 - PCV20 or PCV21) 07/25/2018 07/25/2013, 07/25/2013 COVID-19 Vaccine (4 - 2023- season) 2024 02/16/2021, 02/08/2021, 01/19/2021 [...] and were consensually agreed upon. Care Teams Skin Care Technician Relationship Specialty Start Date End Date Krzysztof Pickering MD 200 [place] [address] PCP - General Internal Medicine 06/19/16 documented as of this encounter
--- OUTSIDE RECORDS SUMMARY | 2025-02-20 22:54 | External Medical Summary | Summary of Care ---
Author Name Unknown Organization [facility] Address [address] [place] [address] Phone [phone] Care Team Providers Care Office Equipment Mechanic Name Role Phone Krzysztof Pickering MD Primary Care Provider + Reason for Referral * Evaluate & Treat - Unlimited Visits (Within 3 days (urgent)) - Authorized Specialty Diagnoses / Procedures Referred By Contjaiden t Referred To Contact Orthopaedic Surgery / Orthopedics Diagnoses Chronic right shoulder pain Krzysztof Pickering MD [facility] [place] [address] Phone: tel: fax: Referral ID Status Reason Start Date Expiration Date Visits Requested Visits Authorized [id number] Authorized Specialty Services Required 10/11/[phone] Question Answer Referral Priority Within 3 days (urgent) Where should this appointment be scheduled? [facility] What body part is the patient being seen for? Shoulder What condition is the patient being seen for? 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, unspecified whether recurrent (HCC); HTN, goal below 140/90; 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 documented as of this encounter (statuses as of 10/11/2024) Medications Folic Acid 5 MG CAPS Take [...] as of this encounter (statuses as of 10/11/2024) Active Problems Problem Noted Date Diagnosed Date [...] cwp, nocturnal ox 08/21/11 CPAP 5-15 cwp [facility] MEDICATION USE AGREEMENT 12/30/2006 Overview (02/20/2009): 02/06/09: Urine screen negative of oxycodone Spondylolisthesis 08/19/2006 Allergic rhinitis due to pollen 01/24/2004 Heterozygous MTHFR mutation [id number] documented as of this encounter (statuses as of 10/11/2024) Resolved Problems Problem Noted Date Diagnosed Date [...] Nocturnal oxygen desaturation 07/25/2013 04/19/2019 [facility] OTHER*[id number] 02/04/2013 07/25/2013 Obesity, morbid (more than 1 00 lbs over ideal weight or BMI > 40) 08/09/2012 07/09/2017 Overview: Per Obesity protocol #1 BMI 70 and over, adult 12/04/201111/28 Obstructive sleep apnea syndrome 09/04/2011 10/02/2011 Genetic Sleep Disorder Resea [facility] Other*[id number] 07/07/2011 05/07/2016 Morbid Obesity, BMI > 40 05/04/201105/2011 Adult body mass index 60.0-69.9 02/02/2011 12/04/2011 Morbid Obesity, BMI > 40 11/20/201010/2010 [facility]*[id number] 07/08/2010 12/18/2015 Overview (12/18/2015): 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 Research*[id number] 03/19/2010 06/26/2010 [facility] OTHER*[id number] 03/19/2010 03/10/2024 Overview (07/25/2013): Completed about 09/2010 [...] (01/01/2010): Per Obesity Taxonomy Heterozygous MTHFR mutation [id number] 07/28/2017 documented as of this encounter (statuses as of 10/11/2024) Immunizations Name Administration Dates Next Due COVID-19 [...] Sign Reading Time Taken Comments Blood Pressure 132/88 10/11/2024 11:41 AM EST Pulse 68 10/11/2024 11:41 AM EST Temperature 35.9 °C (96.7 °F) 10/11/2024 1 1:41 AM EST Respiratory Rate 14 10/11/2024 11:4 1 AM EST Oxygen Saturation - - Inhaled Oxygen Concentration - - Weight 203.6 kg (448 lb 14.4 oz) 2024 11:41 AM EST Height - - Body Mass Index 72.45 04/15/2024 11:16 AM EDT documented in this [...] * Patient Instructions* Joel Aguilar RN - 10/11/2024 11:44 AM EST ~~PATIENT INSTRUCTIONS FOR FLU SHOT~~ Possible side effects of influenza vaccine, (flu shot), are usually mild and include: 1. Soreness or redness at injection site 2. Low grade fever 3. Body aches You may use Tylenol/Acetaminophen as needed for these symptoms. LET YOUR DOCTOR KNOW IMMEDIATELY IF YOU HAVE DIFFICULTY BREATHING OR SWALLOWING, EXPERIENCE ITCHINGOF FEET OR HANDS, HAVE SWELLING OF EYES, FACE OR INSIDE OF NOSE. documented in this encounter Progress Notes * Krzysztof Pickering MD - 10/11/2024 12:14 PM EST Chief Complaint Patient presents with Joint Pain Right shoulder pain that started about 1 week ago - cannot recall any specific injury Medication Administration Flu and/or Pneumo Inj SUBJECTIVE: Amaya Monteiro is a 54 year old female with PMH as below who presents for acute. C/o right shoulder pain for 2 weeks. Pain with arm over head. No trauma, falls. No weakness. Tylenol helps slightly.No swelling, fevers, redness or warmth. Mood ok, some sadness with having to put dog down, but handling ok. No cp, sob ,fung Patient Active Problem List Diagnosis Allergic rhinitis [...] CAPS Take 1 Tab by mouth daily. Tylenol 325 MG Oral Capsule (Acetaminophen) Take [...] as needed for Wheezing. 18 g 0 Levothyroxine Sodium 88 MCG Oral Tablet [...] Pain, Severe. Ongoing therapy 120 Tablet 0 fexofenadine-pseudoephedrine ER 60-120 mg per tab (JACINTO-D) 60-120 MG TB12 Take 1 Tablet by mouth2 times a day as needed for Allergies. Spacer/Aero-Holding Chambers Device Use with inhaler. 1 Each 0 No current facility-administered medications for this visit. Review of patient's allergies indicates: Allergen Reactions Latex Takes skin off with the bandaid Neosporin [Bacitracin-Polymyxin B] Other (Please comment) Redness and film around edge when applied to skin Nylon 12 Infection suture line Tape [Adhesive Tape] Bandaids has to use Cloth tape. Health Maintenance Due Topic Date Due Pneumococcal Vaccine: 50+ Years (3 of 3 - PCV20 or PCV21) 07/25/2018 COVID-19 Vaccine ( season) 2024 Depression Monitoring 09/08/2024 ROS: CONSTITUTIONAL: No fevers, sweats, or chills PULMONARY: No cough, sputum, or hemoptysis, No wheezing, No rales, No shortness of breath, and No recent change in breathing CARDIOVASCULAR: No chest pain, No shortness of breath, No dyspnea on exertion, No orthopnea, No paroxysmal nocturnal dyspnea, No edema, No palpitations, and No syncope GASTROINTESTINAL: No abdominal pain, No change in bowel habits, No significant heartburn, No significant change in appetite, No nausea, vomiting, diarrhea, or constipation, No hematemesis, No blood in stools or black tarry stools, No abdominal bloating or early satiety, and No dysphagia ALL OTHER SYSTEMS NEGATIVE I reviewed social, PMH, PSH, and family history and updated where needed. Social History Socioeconomic History Marital status: Spouse name: Not on file Number of children: 1 Years of education: 9 Highest education level: Not on file Occupational History Occupation: [employer] back pain Employer: [employer] Comment: approved for [employer], approved 01/2010 Tobacco Use Smoking status: Former Current packs/day: 0.00 Average packs/day: 0.5 packs/day for 2.0 years (1.0 ttl pk-yrs) Types: Cigarettes Start date: 06/28/1999 Quit date: 06/28/2001 Years since quittin.3 Smokeless tobacco: Never Tobacco comments: not current [...] Not Asked Social History Narrative born in [place] Currently lives with son and boyfriend (construction), 07/25/13 son at [place], boyfriend works out of town Social Needs [...] Insecurity: No Food Insecurity (03/10/2024) Food Insecurity Do you need food for this week? (Adult - for ages 18 years and over): No Are you able to get enough food for your family? (Household - for ages 0-17 years): Not on file Does your family need food this week? (Household - for ages 0-17 years): Not on file Do you always have enough food for your family? (Household - for ages 0-17 years): Not on file Transportation Needs: No Transportation Needs (03/10/2024) Transportation [...] Stability Do you currently live in a jail or have no steady place to sleep [...] than or equal to 70 in adult ([facility]) 02/02/2020 CPAP (continuous positive airway pressure) dependence 07/25/2013 Deep vein thrombosis (DVT) of popliteal vein of left lower extremity ([facility]) 11/04/201610/2016 Depressive disorder, not elsewhere classified 10/2002 anxiety, diagnosed by Dr Mary PAUL Factor 5 Leiden mutation, heterozygous ([facility]) 11/07/2013 Heterozygous, molecular analysis has detected the R506Q mutation associated with factor V Leiden Generalized osteoarthritis of multiple sites GERD (gastroesophageal reflux disease) H/O deep venous thrombosis 07/28/2017 x2 H/O thrombophlebitis 07/28/2017 Heterozygous MTHFR mutation [id number] Heterozygous MTHFR mutation C677T History of kidney stones 02/04/2021 History of tobacco use quit in 1989 HTN, goal below 140/90 10/[address] Mary PAUL Hyperparathyroidism ([facility]) 07/27/2019 [address] Mary PAUL Major depressive disorder with single episode, in partial remission ([facility]) 07/30/2018 MEDICATION USE AGREEMENT 12/30/2006 Morbid obesity, BMI not known ([facility]) [facility] OTHER*[id number] 03/19/2010 Completed about 09/2010 Nocturnal oxygen desaturation [...] cwp, nocturnal ox 08/21/11 CPAP 5-15 cwp [facility] Varicella without complication age 1 Past Surgical History: Procedure Laterality Date CARPAL TUNNEL SURGERY , 11/05 Bilateral right first, left second, Dr Glynn [facility] COLONOSCOPY, DIAGNOSTIC (RECTUM) 02/2018 adenomatous & hyperplastic polyps, diverticulosis, poor prep, repeat 5 yrs/[facility] COLONOSCOPY, DIAGNOSTIC (RECTUM) N/A 12/11/2023 poor prep/hemorrhoids/anal papilla hypertrophied/recall 3 years/Colonoscopy/PA DILATION AND CURETTAGE (D&C) for irregular bleeding EGD, FLEXIBLE, DIAGNOSTIC 02/02/2015 mild inflammation/[facility] EGD, FLEXIBLE, DIAGNOSTIC N/A 03/12/2015 ESOPHAGOGASTRODUODENOSCOPY (EGD), FLEXIBLE, TRANSORAL, DIAGNOSTIC performed by Colby Ayala OR [facility] IR ASPIRATION ABSCESS/COLLECTION 04/16/2021 LAPAROSCOPE PROCEDURE, LIVER N/A 03/12/2015 UNLISTED LAPAROSCOPIC PROCEDURE LIVER performed by Ramon Will MD at OR [facility] MAMMOGRAM SCREENING BILATERAL 10/13/2010 birad 1, repeat in 12mths OTHER (INFORMATION) jaw surgery for fitting of partial dentures SLEEVE GASTRECTOMY, LAPROSCOPY N/A 03/12/2015 03/12/2015 LAPAROSCOPY SLEEVE GASTRECTOMY performed by Ramon Will MD at OR [facility] Family History Problem Relation Name Age of Onset Diabetes Mother Hypertension Mother Thyroid Disorder Mother Gastro-intestinal disorder Mother blocked bowel- Heart Disorder Father Heart Disorder Grandfather (Paternal) Breast Cancer Aunt (Maternal) dx >50y Breast Cancer Aunt (Maternal) dx >50y Breast Cancer Aunt (Maternal) dx >50y Breast Cancer Cousin (Maternal) OBJECTIVE: PHYSICAL EXAM: BP 132/88 (BP Site: Left Arm, BP Position: Sitting, BP Cuff Size: Thigh) | Pulse 68 | Temp 96.7 °F(35.9 °C) (Tympanic) | Resp 14 | Wt (!) 448 lb 14.4 oz (203.6 kg) | BMI 72.45 kg/m² | BSA 3.08 m² General: alert, healthy, and no distress Head: Normocephalic, No masses, lesions, tenderness or abnormalities Eye Exam: conjunctiva are pink and non-injected, sclera clear Heart: regular rate & rhythm, no murmur, no gallops, PMI non-displaced, S-1 normal, and S-2 normal Lungs: normal respiratory rate and rhythm, lungs clear to auscultation Extremities: no clubbing, no cyanosis, +pain right anterior shoulder with arm over head, and no warmth or redness. 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 (E21.3) Hyperparathyroidism (HCC) (Z79.899) Encounter for long-term (current) use of medications (Z12.31) Encounter for screening mammogram for breast cancer (Z23) Need for prophylactic vaccination and inoculation against influenza PLAN: Chronic right shoulder pain (Primary) - XR SHOULDER, 2 OR MORE VIEWS Check image Tc ortho pending Current severe episode of major depressive disorder with psychotic features, unspecified whether recurrent (HCC) - CBC WITH WBC DIFFERENTIAL; Future; Expected date: 10/11/2024 Cont duloxetine, wellbutrin HTN, goal below 140/90 - COMPREHENSIVE METABOLIC PANEL; Future; Expected date: 10/11/2024 - LIPID PANEL WITH DIRECT LDL IF TG IS HIGH; Future; Expected date: 10/11/2024 - CBC WITH WBC DIFFERENTIAL; Future; Expected date: 10/11/2024 Labs soon 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 - CBC WITH WBC DIFFERENTIAL; Future; Expected date: 10/11/2024 Sees endocrine Hyperparathyroidism (HCC) - CBC WITH WBC DIFFERENTIAL; Future; Expected date: 10/11/2024 Labs per endocrine Encounter for long-term (current) use of medications - CBC WITH WBC DIFFERENTIAL; Future; Expected date: 10/11/2024 - IRON SCREEN, INCLUDING TIBC; Future; Expected date: 10/11/2024 - FERRITIN; Future; Expected date: 10/11/2024 Encounter for screening mammogram for breast cancer - MAMMOGRAM SCREENING JD BILATERAL; Future; Expected date: 01/09/2025 Need for prophylactic vaccination and inoculation against influenza - INFLUENZA VAC, TRIVALENT, (IIV3), PF, 0.5 ML (FLUZONE) - CBC WITH WBC DIFFERENTIAL; Future; Expected date: 10/11/2024 Follow Up: Return in about 3 months (around 01/09/2025), or if symptoms worsen or fail to improve, for Fasting Labs Soon. | For: Fasting Labs Soon Krzysztof Pickering MD * Joel Aguilar RN - 10/11/2024 11:44 AM EST PRE - ADMINISTRATION DOCUMENTATION Are you experiencing any cold symptoms or fever? No Have you had Guillain-Hutchinson Syndrome (an illness that causes paralysis) within the last 6 weeks? No Have you had the flu shot in the past? YES Have you ever had a reaction to the flu shot? No Joel Aguilar RN, 10/11/2024 11:44 AM Immunization Administration Documentation Time Out Procedure Performed: Yes Patient Identified (Ask Name/Date of ): Yes Does the patient have a fever greater than 101 degrees today? No Patient allergic to latex? No VFC Stock: No Immunization(s) verified: Yes, Immunization Name: Flu, VIS Sheet(s) given: Yes Verified Side and Site: Yes Verified Shot(s) with Parent(s)/Patient: Yes documented in this encounter Nursing Notes * Joel Aguilar RN - 10/11/2024 11:43 AM EST Chief Complaint Patient presents with Joint Pain Right shoulder pain that started about 1 week ago - cannot recall any specific injury documented in this encounter Plan of Treatment Upcoming Encounters Date Type Department Care Team (Late st Contact Info) Description 10/26/2024 10:20 AM EST Office Visit Endocrinology [address] [place] [phone] Kylee Cox MD [address] [id number] 11/09/2024 8:00 AM EST Office Visit Orthopaedics [facility] [address] [place] [phone] Ramu Colby, DO [address] [place] [address] 11/14/2024 8:30 AM EST [facility] [address], [place] [phone] [address] [address] 11/16/2024 8:00 AM EST Office Visit Orthopaedics [facility] [address] [place] [phone] Ramu Colby, DO [address] [place] [address] 11/23/2024 8:00 AM EST [facility] [address] [place] [phone] Ramu Colby, DO [address] [place] [address] 01/09/2025 10:20 AM EDT Office Visit General Internal Medicine [facility] [address] [facility] [address] [place] [address] Krzysztof Pickering MD [address] [facility] [place] [address] Scheduled Orders Name Type Priority Associated Diagnoses Orde r Schedule COMPREHENSIVE METABOLIC PANEL Lab Routine HTN, goal below 140/90 Expected: 10/11/2024 (Approximate), Expires: 10/11/2025 LIPID PANEL WITH DIRECT LDL IF TG IS HIGH Lab Routine HTN, goal below 140/90 Expected: 10/11/2024, Expires: 10/11/2025 CBC WITH WBC DIFFERENTIAL Lab Routine Need for prophylactic vaccination and inoculation against influenza Current severe episode of major depressive disorder with psychotic features, unspecified whether recurrent (HCC) HTN, goal below 140/90 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 Hyperparathyroidism (HCC) Encounter for long-term (current) use of medications Expected: 10/11/2024 (Approximate), Expires: 10/11/2025 IRON SCREEN, INCLUDING TIBC Lab Routine Encounter for long-term (current) use of medications Expected: 10/11/2024 (Approximate), Expires: 10/11/2025 FERRITIN Lab Routine Encounter for long-term (current) use of medications Expected: 10/11/2024 (Approximate), Expires: 10/11/2025 MAMMOGRAM SCREENING JD BILATERAL Medical Imaging Routine Encounter for screening mammogram for breast cancer Expected: 01/09/2025, Expires: 11/11/2025 Scheduled Procedures Name Priority Associated Diagnoses Date/Ti me COLONOSCOPY FLEXIBLE PROXIMA L DIAGNOSTIC Recall History of colonic polyps Scheduled Referrals Name Type Priority Associated Diagnoses Order Schedule ORTHOPAEDICS REFERRAL OP Referral Within 3 days (urgent) Chronic right shoulder pain Ordered: 10/11/2024 Health Maintenance Due Date Last Done Comments [...] Procedure Name Priority Date/Time Associated Diagnosis Comments XR SHOULDER, 2 OR MORE VIEWS STAT 10/11/2024 12:15 PM EST Chronic right shoulder pain documented in this encounter Results * XR SHOULDER, 2 OR MORE VIEWS (10/11/2024 12:15 PM EST) Anatomical Region Laterality Modality Upper Extremity, Shoulder Comput ed Radiography 10/11/2024 12:2 9 PM EST Impressions 10/11/2024 12:26 PM EST IMPRESSION No acute findings. Narrative 10/11/2024 12:26 PM EST EXAM XR SHOULDER, 2 OR MORE VIEWS-10/11/2024 12:15 pm HISTORY right shoulder pain COMPARISON None TECHNIQUE Four radiographs right shoulder. FINDINGS Acromioclavicular joint normally aligned and moderate osteoarthritis. Glenohumeral joint normally aligned and without arthropathy. No calcification. No fracture. Procedure Note Esutardo Swenson MD - 10/11/2024 EXAM XR SHOULDER, 2 OR MORE VIEWS-10/11/2024 12:15 pm HISTORY right shoulder pain COMPARISON None TECHNIQUE Four radiographs right shoulder. FINDINGS Acromioclavicular joint normally aligned and moderate osteoarthritis.Glenohumeral joint normally aligned and without arthropathy. Nocalcification. No fracture. IMPRESSION IMPRESSION No acute findings. 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 Care Teams Office Equipment Mechanic Relationship Specialty Start Date End Date Krzysztof Pickering MD [address] [place] [address] PCP - General Internal Medicine 06/19/16 documented as of this encounter"
--- OUTSIDE RECORDS SUMMARY | 2025-02-20 22:54 | External Medical Summary | Summary of Care ---
Author Name Unknown Organization [facility] Address [address] [place] [address] Phone [phone] Care Team Providers Care Rug Cleaner Helper Name Role Phone Krzysztof Gage MD Primary Care Provider + Reason for Visit * Reason Comments eRx-Medication Refill Encounter Details Date Type Department Care Team (Late st Contact Info) Description 09/22/2024 Refill General Internal Medicine [facility] [address] [place] [address] Krzysztof Gage MD [address] [place] [address] HTN, goal to be determined Allergies Active Allergy Reactions Criticality Noted Date Comments Latex 08/16/2010 Takes skin off with the bandaid Bacitracin-Polymyxin B Other (Please comment) 05/22/2021 Redness and film around edge when applied to skin Nylon 12 07/04/2010 Infection suture line Adhesive Tape 05/14/2007 Bandaids has to use Cloth tape. documented as of this encounter (statuses as of 09/22/2024) Medications Folic Acid 5 MG CAPS Take [...] with inhaler. 1 Each 10/21/19 24 Active Fluticasone Propionate 50 MCG/ACT Nasal Suspension (Flonase) ADMINISTER 2 SPRAYS INTO EACH NOSTRIL DAILY. 16 mL 8 10/28/19 24 Active Levothyroxine Sodium 88 MCG Oral [...] chew. 90 Capsule 3 06/07/20 24 Active oxyCODONE-Aceta minophen 10-325 MG Oral Tablet (Percocet)Indic ations:Chronic pain syndrome Take 1 Tablet by mouth every 6 hours as needed for Pain, Severe. Ongoing therapy 120 Tablet 09/06/20 24 Active Omeprazole 20 MG Oral Capsule Delayed Release (PriLOSEC)Indic ations:HTN, goal to be determined TAKE 2 CAPSULES DAILY 180 Capsule 3 09/22/20 24 Active Omeprazole 20 MG Oral Capsule Delayed Release (PriLOSEC)Indic ations:HTN, goal to be determined TAKE 2 CAPSULES DAILY 180 Capsule 3 11/19/19 24 2023 Discontinued documented as of this encounter (statuses as of 09/22/2024) Active Problems Problem Noted Date Diagnosed Date BMI 60.0-69.9, adult 10/27/2022 History of kidney stones 02/04/2021 Chronic bilateral low back pain with bilateral s ciatica 07/19/2020 Chronic insomnia 02/02/2020 Hyperparathyroidism 07/27/2019 Nocturnal hypoxemia 04/19/2019 Major depressive disorder wi th single episode, in partial remission 07/30/2018 H/O thrombophlebitis 07/28/2017 H/O deep venous thrombosis [...] cwp, nocturnal ox 08/21/11 CPAP 5-15 cwp [facility] MEDICATION USE AGREEMENT 12/30/2006 Overview (02/20/2009): 02/06/09: Urine screen negative of oxycodone Spondylolisthesis 08/19/2006 Allergic rhinitis due to pollen 01/24/2004 Heterozygous MTHFR mutation C677T documented as of this encounter (statuses as of 09/22/2024) Resolved Problems Problem Noted Date Diagnosed Date Resolved Date Morbid obesity with body mas s index of 70 and over in adult 02/11/2024 03/10/2024 Cellulitis of left lower extremity 06/22/2021 04/11/2022 [...] Overview: Per Obesity protocol #1 - - Body mass index (BMI) of 50. 0 [...] Nocturnal oxygen desaturation 07/25/2013 04/19/2019 [facility] OTHER*[id number] 02/04/2013 07/25/2013 Obesity, morbid (more than 1 00 lbs over ideal weight or BMI > 40) 08/09/2012 07/09/2017 Overview: Per Obesity protocol #1 BMI 70 and over, adult 12/04/201111/28 Obstructive sleep apnea syndrome 09/04/2011 10/02/2011 Genetic Sleep Disorder Resea [facility] Other*[id number] 07/07/2011 05/07/2016 Morbid Obesity, BMI > 40 05/04/201105/2011 Adult body mass index 60.0-69.9 02/02/2011 12/04/2011 Morbid Obesity, BMI > 40 11/20/201010/2010 [facility] [employer]*[id number] 07/08/2010 12/18/2015 Overview (12/18/2015): 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 Research*[id number] 03/19/2010 06/26/2010 [facility] OTHER*[id number] 03/19/2010 03/10/2024 Overview (07/25/2013): Completed about 09/2010 [...] (01/01/2010): Per Obesity Taxonomy Heterozygous MTHFR mutation [id number] 07/28/2017 documented as of this encounter (statuses as of 09/22/2024) Immunizations Name Administration Dates Next Due COVID-19 [...] encounter Miscellaneous Notes * Telephone Encounter - Alpesh Way [facility] - 09/22/2024 6:21 PM ESTSigned Prescriptions: Disp Refills Omeprazole 20 MG Oral Capsule Delayed Rele*180 Ca*3 Sig: TAKE 2 CAPSULES DAILYAuthorizing Provider: KRZYSZTOF GAGE User: ALPESH WAY-- documented in this encounter Plan of Treatment Upcoming Encounters Date Type Department Care Team (Late st Contact Info) Description 09/27/2024 10:20 AM EST Office Visit General Internal Medicine [facility] [place] [address] [place] [address] Leona Cox MD [address] [place] [address] 09/29/2024 11:40 AM EST Anticoagulation Pharmacy, [facility] [address] [place] [phone] [facility] [address] [place] [address] 10/26/2024 10:20 AM EST Office Visit Endocrinology [address] [place] [phone] Kylee Cox MD [address] [place] [address] 11/09/2024 8:00 AM EST Office Visit [facility] [address] [facility] [place] [address] Ramu Colby DO 132 [facility] [place] [address] 11/16/2024 8:00 AM EST Office Visit [facility] [address] [place] [address] Ramu Colby, [address] [place] [address] 11/23/2024 8:00 AM EST Office Visit [facility] [address] [place] [address] Ramu Colby, [address] [place] [address] Scheduled Procedures Name Priority Associated Diagnoses Date/Ti me COLONOSCOPY FLEXIBLE PROXIMA L DIAGNOSTIC Recall History of colonic polyps Health Maintenance Due Date Last Done Comments Cologuard 01/06/2013 Fecal Occult Blood Test 01/06/2013 Sigmoidoscopy 01/06/2013 COVID-19 Vaccine ( season) 2024 02/16/2021, 02/08/2021, 01/19/2021 Influenza Vaccine (FLU shot) (#1) 2024 08/04/2023, 10/27/2022, 06/25/2021, Additional history exists Depression Monitoring 09/08/2024 09/08/2023 Mammogram 01/11/2025 01/12/2024, [...] 11/04/2028 11/04/2023, 10/06, 10/07/2021, Additional history exists Pneumococcal Vaccine: Pediatrics (0 to 5 Years) and At-Risk Patients (6 to 64 Years) Aged Out 07/25/2013, 07/25/2013 No longer eligibl e based on patient's age to complete this topic Zoster Vaccines Completed 12/21/2020, 07/20/2020 Hepatitis B Vaccine Completed 09/08/2023, 03/06/2023, 11/19/2022 RETIRED - COLONOSCOPY-EVERY 5 YRS AGES 18-100 Discontinued 12/11/2023, 12/11/2023, 02/17/2018 HPV (Gardasil) Vaccine Aged Out No lo nger eligible based on patient's age to complete this topic MENINGOCOCCAL (MENACTRA/MENVEO) Aged Out No longer eligible based on patient's age to complete this topic documented as of this encounter Medical Devices Not on filedocumented as of this encounter Visit Diagnoses Diagnosis HTN, goal to be determined Unspecified essential hypertension documented in this encounter [...] and were consensually agreed upon. Care Teams Rug Cleaner Helper Relationship Specialty Start Date End Date Krzysztof Gage MD [address] [place] [place] [address] PCP - General Internal Medicine 06/19/16 documented as of this encounter
--- OUTSIDE RECORDS SUMMARY | 2025-02-20 22:54 | External Medical Summary | Summary of Care ---
Author Name Unknown Organization [facility] Address [address] [place] [address] Phone [phone] Care Team Providers Care Thermoplastic Technician Name Role Phone Krzysztof Pickering MD Primary Care Provider + Reason for Visit * Reason Comments eRx-Medication Refill Encounter Details Date Type Department Care Team (Late st Contact Info) Description 09/22/2024 Refill General Internal Medicine [facility] [address] [place] [address] Krzysztof Pickering MD [address] [place] [address] Allergies Active Allergy Reactions Criticality Noted Date Comments Latex 08/16/2010 Takes skin off with the bandaid Bacitracin-Polymyxin B Other (Please comment) 05/22/2021 Redness and film around edge when applied to skin Nylon 12 07/04/2010 Infection suture line Adhesive Tape 05/14/2007 Bandaids has to use Cloth tape. documented as of this encounter (statuses as of 09/23/2024) Medications Folic Acid 5 MG CAPS Take [...] DAILY. 48 mL 1 09/23/20 24 Active Fluticasone Propionate 50 MCG/ACT Nasal Suspension (Flonase) ADMINISTER 2 SPRAYS INTO EACH NOSTRIL DAILY. 16 mL 8 10/28/19 24 2023 Discontinued documented as of this encounter (statuses as of 09/23/2024) Active Problems Problem Noted Date Diagnosed Date [...] cwp, nocturnal ox 08/21/11 CPAP 5-15 cwp [facility] MEDICATION USE AGREEMENT 12/30/2006 Overview (02/20/2009): 02/06/09: Urine screen negative of oxycodone Spondylolisthesis 08/19/2006 Allergic rhinitis due to pollen 01/24/2004 Heterozygous MTHFR mutation C677T documented as of this encounter (statuses as of 09/23/2024) Resolved Problems Problem Noted Date Diagnosed Date [...] Nocturnal oxygen desaturation 07/25/2013 04/19/2019 [facility] OTHER*[id number] 02/04/2013 07/25/2013 Obesity, morbid (more than 1 00 lbs over ideal weight or BMI > 40) 08/09/2012 07/09/2017 Overview: Per Obesity protocol #1 BMI 70 and over, adult 12/04/201111/28 Obstructive sleep apnea syndrome 09/04/2011 10/02/2011 Genetic Sleep Disorder Resea [facility] Other*[id number] 07/07/2011 05/07/2016 Morbid Obesity, BMI > 40 05/04/201105/2011 Adult body mass index 60.0-69.9 02/02/2011 12/04/2011 Morbid Obesity, BMI > 40 11/20/201010/2010 [facility]*[id number] 07/08/2010 12/18/2015 Overview (12/18/2015): 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 Research*[id number] 03/19/2010 06/26/2010 [facility] OTHER*[id number] 03/19/2010 03/10/2024 Overview (07/25/2013): Completed about 09/2010 [...] (01/01/2010): Per Obesity Taxonomy Heterozygous MTHFR mutation [id number] 07/28/2017 documented as of this encounter (statuses as of 09/23/2024) Immunizations Name Administration Dates Next Due COVID-19 [...] of Assessment Author Yes 06/22/2021 5:50 PM EDMary Ellen Amin RN * Do you have difficulty dressing [...] encounter Miscellaneous Notes * Telephone Encounter - Tran Hernandez, [facility] - 09/23/2024 3:51 PM EST Signed Prescriptions: Disp Refills Fluticasone Propionate 50 MCG/ACT Nasal Hurd*48 mL 1 Sig: ADMINISTER 2 SPRAYS INTO EACH NOSTRIL DAILY.Authorizing Provider: KRZYSZTOF PICKERING User: TRAN HERNANDEZ documented in this encounter Plan of Treatment Upcoming Encounters Date Type Department Care Team (Late st Contact Info) Description 09/27/2024 10:20 AM EST Office Visit General Internal Medicine Svitlana Guzman [place] [address] [place] [address] Leona Cox MD [address] [place] [address] 09/29/2024 11:40 AM EST Anticoagulation Pharmacy, [facility] [address] [place] [phone] [facility] [address] [place] [address] 10/26/2024 10:20 AM EST Office Visit Endocrinology [address] [place] [phone] Kylee Cox MD [address] [place] [address] 11/09/2024 8:00 AM EST Office Visit [facility] [address] [facility] [place] [address] Ramu Colby DO 132 [facility] [place] [address] 11/16/2024 8:00 AM EST Office Visit Orthopaedics [facility] [address] [place] [address] Ramu Colby, [address] [place] [address] 11/23/2024 8:00 AM EST Office Visit Orthopaedics [facility] [address] [place] [address] Ramu Colby, [address] [place] [address] Scheduled Procedures Name Priority Associated Diagnoses Date/Ti [...] 12/29/2022, Additional history exists GFR 03/21/2025 03/21/2024, /0 03/2024, 11/04/2023, Additional history exists TSH 03/21/2025 [...] and were consensually agreed upon. Care Teams Thermoplastic Technician Relationship Specialty Start Date End Date Krzysztof Pickering MD [address] [place] [address] PCP - General Internal Medicine 06/19/16 documented as of this encounter
--- OUTSIDE RECORDS SUMMARY | 2025-02-20 22:54 | External Medical Summary | Summary of Care ---
Author Name Unknown Organization [facility] Address [address] [place] [address] Phone [phone] Care Team Providers Care District Medical Examiner Name Role Phone Krzysztof Pickering MD Primary Care Provider + Reason for Visit * Reason Onset Date Comments Medication Refill 10/02/2024 Encounter Details Date Type Department Care Team (Late st Contact Info) Description 10/02/2024 Refill General Internal Medicine [facility] [address] [facility] [place] [address] Krzysztof Pickering MD [address] [place] [address] Chronic pain syndrome Allergies Active Allergy Reactions Criticality Noted Date Comments Latex 08/16/2010 Takes skin off with the bandaid Bacitracin-Polymyxin B Other (Please comment) 05/22/2021 Redness and film around edge when applied to skin Nylon 12 07/04/2010 Infection suture line Adhesive Tape 05/14/2007 Bandaids has to use Cloth tape. documented as of this encounter (statuses as of 10/04/2024) Medications Folic Acid 5 MG CAPS Take [...] for Pain, Severe. Ongoing therapy 120 Tablet 10/04/20 24 Active oxyCODONE-Acetam inophen 10-325 MG Oral Tablet (Percocet)Indica tions:Chronic pain syndrome Take 1 Tablet by mouth every 6 hours as needed for Pain, Severe. Ongoing therapy 120 Tablet 09/06/20 24 024 Discontin ued(Refil l) documented as of this encounter (statuses as of 10/04/2024) Active Problems Problem Noted Date Diagnosed Date [...] cwp, nocturnal ox 08/21/11 CPAP 5-15 cwp [facility] MEDICATION USE AGREEMENT 12/30/2006 Overview (02/20/2009): 02/06/09: Urine screen negative of oxycodone Spondylolisthesis 08/19/2006 Allergic rhinitis due to pollen 01/24/2004 Heterozygous MTHFR mutation C677T documented as of this encounter (statuses as of 10/04/2024) Resolved Problems Problem Noted Date Diagnosed Date [...] Nocturnal oxygen desaturation 07/25/2013 04/19/2019 [facility] OTHER*[id number] 02/04/2013 07/25/2013 Obesity, morbid (more than 1 00 lbs over ideal weight or BMI > 40) 08/09/2012 07/09/2017 Overview: Per Obesity protocol #1 BMI 70 and over, adult 12/04/201111/28 Obstructive sleep apnea syndrome 09/04/2011 10/02/2011 Genetic Sleep Disorder Resea [facility] Other*[id number] 07/07/2011 05/07/2016 Morbid Obesity, BMI > 40 05/04/201105/2011 Adult body mass index 60.0-69.9 02/02/2011 12/04/2011 Morbid Obesity, BMI > 40 11/20/201010/2010 [employer] Research*[id number] 07/08/2010 12/18/2015 Overview (12/18/2015): 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 Research*[id number] 03/19/2010 06/26/2010 [facility] OTHER*[id number] 03/19/2010 03/10/2024 Overview (07/25/2013): Completed about 09/2010 [...] (01/01/2010): Per Obesity Taxonomy Heterozygous MTHFR mutation [id number] 07/28/2017 documented as of this encounter (statuses as of 10/04/2024) Immunizations Name Administration Dates Next Due COVID-19 [...] of Assessment Author Yes 06/22/2021 5:50 PM Mray Ellen Perez RN * Do you have [...] encounter Miscellaneous Notes * Telephone Encounter - Jason Hook DO - 10/04/2024 9:58 AM EST Signed Prescriptions: Disp Refills oxyCODONE-Acetaminophen 10-325 MG Oral Tab*120 Ta*0 Sig: Take 1 Tablet by mouth every 6 hours as needed for Pain, Severe. Ongoing therapy Authorizing Provider: JASON HOOK * Telephone Encounter - Eliz Phoenix PA-C - 10/04/2024 9:01 AM ESTPending Prescriptions: Disp Refills oxyCODONE-Acetaminophen 10-325 MG Oral Tab*120 Ta*0 Sig: Take 1 Tablet by mouth every 6 hours as needed for Pain, Severe. Ongoing therapy * Telephone Encounter - Vanesa Larson [facility] - 10/04/2024 8:12 AM EST Pending Prescriptions: Disp Refills oxyCODONE-Acetaminophen 10-325 MG Oral Tab*120 Ta*0 Sig: Take 1 Tablet by mouth every 6 hours as needed for Pain, Severe. Ongoing therapy * Telephone Encounter - Vaensa Larson [facility] - 10/04/2024 8:10 AM EST I have reviewed the patient’s controlled substance dispensing history in the Prescription Drug Monitoring Program in compliance with the [facility] regulations before prescribing a controlled substance. PDMP checked on 10/04/2024. Pending Prescriptions: Disp Refills oxyCODONE-Acetaminophen 10-325 MG Oral Ta*120 Ta*0 Sig: Take 1 Tablet by mouth every 6 hours as needed for Pain, Severe. Ongoing therapy Last Visit: 04/15/2024 (in office), Visit date not found (telemedicine) Next Visit: 10/20/2024 Date medication was last filled: 09/06/24 Date medication is due for refill: 10/05/24 Pharmacy: [facility] [id number] [place] [address] Is this request for a controlled substance? Yes and Urine Drug Screen was completed Toxicology results: Results for orders placed or performed in visit on 03/10/24 PAIN MANAGEMENT DRUG PANEL, URINE W/ INTERPRETATION Result Value Compliance Interpretation Based on the medication information provided: [...] U Negative Oxycodone Screen, U Positive (A) Valid Interpretation Normal Creatinine, U 237 Narrative Cutoff [...] Review. Please approve if appropriate. Thank you, Vanesa Larson, PharmD Clinical Pharmacist [facility] ([facility]) 10/04/24 8:10 AM [phone] documented in this encounter Plan of Treatment Upcoming Encounters Date Type Department Care Team (Late st Contact Info) Description 10/20/2024 10:00 AM EST Office Visit General Internal Medicine [facility] [address] [facility] [place], [place] [address] Krzysztof Pickering MD [address] [facility] [place] [address] 10/26/2024 10:20 AM EST Office Visit Endocrinology [address] [place] [address] Kylee Cox MD [address] [place], [place] [phone] 11/09/2024 8:00 AM EST Office [facility] [address] Ramu Colby, DO [address] [facility] [place] [address] 11/14/2024 8:30 AM EST [facility] [address] [place] [phone] [address] [address] 11/16/2024 8:00 AM EST Office [facility] [place] [address] Ramu Colby, [address] [facility] [place] [address] 11/23/2024 8:00 AM EST Office Visit [facility] [address] [place] [address] Ramu Colby, DO [address] [place] [address] Scheduled Procedures Name Priority Associated Diagnoses Date/Ti [...] and were consensually agreed upon. Care Teams District Medical Examiner Relationship Specialty Start Date End Date Krzysztof Pickering MD [address] [facility] [place] [address] PCP - General Internal Medicine 06/19/16 documented as of this encounter
--- OUTSIDE RECORDS SUMMARY | 2025-02-20 22:54 | External Medical Summary ---
Author Name Unknown Address Unknown Organization : Laboratory Report Ordering Provider Test Date Status FÉLIX DAVIDSON 10/03/2024 09:26:46 Final Therapeutic ranges for non-o perative patients:
Prophylaxsis/treatment of DVT: (Range:2.0-3.0)
Treatment of pulmonary embolism:(Range:2.0-3.0)
Prevention of systemic embolism from:
-tissue heart valves
-acute myocardial infarction
-valvular heart disease
-atrial fibrillation
(Range: 2.0-3.0)
Mechanical prosthetic valves: (Range: 2.5-3.5) Observation Date Value Abnormality Reference (Units ) Status INR in Capillary blood by Coagulation assay 10/03/2024 09:26:46 2.4 (INR) Final Performing Location
--- OUTSIDE RECORDS SUMMARY | 2025-02-20 22:54 | External Medical Summary | Summary of Care ---
Author Name Unknown Organization [facility] Address [address] [place] [address] Phone [phone] Care Team Providers Care Automation Clerk Name Role Phone Krzysztof Pickering MD Primary Care Provider + Reason for Visit * Reason Comments Dosage Adjustment In Person (Anticoag Cl inic) Encounter Details Date Type Department Care Team (Latest Contact Info) Description 10/03/2024 9:20 AM EST Anticoagulation Pharmacy, [facility] [address] [place] [phone] [facility] [address] [place] [address] Anticoagulation management encounter*; Factor 5 Leiden mutation, [...] as of this encounter (statuses as of 10/03/2024) Medications Folic Acid 5 MG CAPS Take [...] or chew. 90 Capsule 3 4 Active oxyCODONE-Acetam inophen 10-325 MG Oral Tablet (Percocet)Indica tions:Chronic pain syndrome Take 1 Tablet by mouth every 6 hours as needed for Pain, Severe. Ongoing therapy 120 Tablet 4 Active Omeprazole 20 MG Oral Capsule Delayed Release (PriLOSEC)Indica tions:HTN, goal to be determined TAKE 2 CAPSULES DAILY 180 Capsule 3 4 Active Fluticasone Propionate 50 MCG/ACT Nasal Suspension (Flonase) ADMINISTER 2 SPRAYS INTO EACH NOSTRIL DAILY. 48 mL 1 4 Active documented as of this encounter (statuses as of 10/03/2024) Active Problems Problem Noted Date Diagnosed Date [...] as of this encounter (statuses as of 10/03/2024) Resolved Problems Problem Noted Date Diagnosed Date [...] Nocturnal oxygen desaturation 07/25/2013 04/19/2019 [facility] OTHER*[id number] 02/04/2013 07/25/2013 Obesity, morbid (more than 1 00 lbs over ideal weight or BMI > 40) 08/09/2012 07/09/2017 Overview: Per Obesity protocol #1 BMI 70 and over, adult 12/04/201111/28 Obstructive sleep apnea syndrome 09/04/2011 10/02/2011 Genetic Sleep Disorder Resea [facility] Other*[id number] 07/07/2011 05/07/2016 Morbid Obesity, BMI > 40 05/04/201105/2011 Adult body mass index 60.0-69.9 02/02/2011 12/04/2011 Morbid Obesity, BMI > 40 11/20/201010/2010 [facility] Research*[id number] 07/08/2010 12/18/2015 Overview (12/18/2015): 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 Research*[id number] 03/19/2010 06/26/2010 [facility] OTHER*[id number] 03/19/2010 03/10/2024 Overview (07/25/2013): Completed about 09/2010 [...] (01/01/2010): Per Obesity Taxonomy Heterozygous MTHFR mutation [id number] 07/28/2017 documented as of this encounter (statuses as of 10/03/2024) Immunizations Name Administration Dates Next Due COVID-19 [...] in this encounter Progress Notes * Latasha Cuellar, [facility] - 10/03/2024 9:24 AM EST Medication Therapy Disease Management - Anticoagulation Patient: Amaya Monteiro | : 1970 Subjective Patient-Reported Symptoms: Patient Findings Negatives: Signs/symptoms of thrombosis, Signs/symptoms of bleeding, Change in health, Change in alcohol use, Change in activity, Upcoming invasive procedure, Missed doses, Extra doses, Change in medications, Change in diet/appetite, Bruising Objective Current Warfarin Dose As of 10/03/2024 Warfarin maintenance plan: 10 mg (10 mg x 1) every Sun, Molly; 5 mg (10 mg x 0.5) all other days INR Result As of 10/03/2024 INR goal: 2.0-3.0 INR used for dosin.4 (10/03/2024) Assessment & Plan Warfarin Plan As of 10/03/2024 Full warfarin instructions: 10 mg every Sun, Molly; 5 mg all other days No change documented: Latasha Cuellar RPh Next INR check: 11/14/2024 Repeat PT/INR in 6 week(s) Weekly dose: not changed Additional Dosing Information: I spent a total of 10-19 minutes (exact time 10 mins) on the date of service in preparation, delivery, and documentation of the care provided to Amaya Monteiro excluding any time spent in the performance of separately billed services or time spent by another provider/QHP. Latasha Cuellar [facility] Clinical Pharmacist 10/03/2024, 9:24 AM documented in this encounter Plan of Treatment Upcoming Encounters Date Type Department Care Team (Late st Contact Info) Description 10/20/2024 10:00 AM EST Office Visit General Internal Medicine [address] Gu[address]man [place] [address] [place], [place] [address] Krzysztof Pickering MD [address] [place] [address] 10/26/2024 10:20 AM EST Office Visit Endocrinology [address] [place] [phone] Kylee Cox MD [address] [place] [address] [address] 11/09/2024 8:00 AM EST Office Visit [facility] [address] [facility] [place] [address] Ramu Colby, DO [address] [facility] [place] [address] 11/14/2024 8:30 AM EST [facility]tico[facility] Pharmacy, [facility] [address] [facility] [place] [phone] [address] [address] 11/16/2024 8:00 AM EST Office Visit [facility] [address] [facility] [place] [address] Ramu Colby, DO [address] [facility] [place] [address] 11/23/2024 8:00 AM EST Office Visit [facility] [address] [facility] [place] [address] Ramu Colby, [address] [facility] [place] [address] Scheduled Procedures Name Priority Associated Diagnoses Date/Ti me COLONOSCOPY FLEXIBLE PROXIMA L DIAGNOSTIC Recall History of colonic polyps Health Maintenance Due Date Last Done Comments Cologuard 01/06/2013 Fecal Occult Blood Test 01/06/2013 Sigmoidoscopy 01/06/2013 Pneumococcal Vaccine: 50+ Years (3 of 3 - PCV20 or PCV21) 07/25/2018 07/25/2013, 07/25/2013 COVID-19 Vaccine (4 - season) 2024 02/16/2021, 02/08/2021, 01/19/2021 Influenza Vaccine [...] Comments INR FINGERSTICK, POINT OF CARE STAT 10/03/2024 9:26 AM EST Factor 5 Leiden mutation, heterozygous (HCC) Heterozygous MTHFR mutation C677T Anticoagulation management encounter documented in this encounter Results * INR FINGERSTICK, POINT OF CARE (10/03/2024 9:26 AM EST) Fingerstick INR 2.4 INR 9:29 AM EST [facility] 10/03/2024 9:26 AM EST 10/03/2024 9:29 AM EST Narrative [facility] [place] [facility] - 10/03/2024 9:29 AM EST Therapeutic ranges for non-operative patients: Prophylaxsis/treatment of DVT: (Range:2.0-3.0) Treatment of pulmonary embolism:(Range:2.0-3.0) Prevention of systemic embolism from: -tissue heart valves -acute myocardial infarction -valvular heart disease -atrial fibrillation (Range: 2.0-3.0) Mechanical prosthetic valves: (Range: 2.5-3.5) us Latasha Cuellar [facility] LAB POINT OF CARE TEST DOCKED DEVICE UNSOLICITED RESULTS Final Result [facility] [place] [address], [facility] documented in this encounter Visit Diagnoses [...] and were consensually agreed upon. Care Teams Automation Clerk Relationship Specialty Start Date End Date Krzysztof Pickering MD [address] [place] [address] PCP - General Internal Medicine 06/19/16 documented as of this encounter"
--- OUTSIDE RECORDS SUMMARY | 2025-02-20 22:54 | External Medical Summary | Summary of Care ---
Author Name Unknown Organization [facility] Address [address] [place] [address] Phone [phone] Care Team Providers Care Front Desk Name Role Phone Krzysztof Pickering MD Primary Care Provider + Reason for Visit * Reason Onset Date Comments Medication Refill 09/03/2024 Encounter Details Date Type Department Care Team (Late st Contact Info) Description 09/03/2024 Refill General Internal Medicine [facility] [place] [address] [facility] [place] [address] Lili Hernandez MD [address] [place] [address] Chronic pain syndrome Allergies Active Allergy Reactions Criticality Noted Date Comments Latex 08/16/2010 Takes skin off with the bandaid Bacitracin-Polymyxin B Other (Please comment) 05/22/2021 Redness and film around edge when applied to skin Nylon 12 07/04/2010 Infection suture line Adhesive Tape 05/14/2007 Bandaids has to use Cloth tape. documented as of this encounter (statuses as of 09/06/2024) Medications Folic Acid 5 MG CAPS Take [...] DAILY. 16 mL 8 10/28/19 24 Active Omeprazole 20 MG Oral Capsule Delayed Release (PriLOSEC)Indica tions:HTN, goal to be determined TAKE 2 CAPSULES DAILY 180 Capsule 3 11/19/19 24 Active Levothyroxine Sodium 88 MCG Oral [...] chew. 90 Capsule 3 06/07/20 24 Active oxyCODONE-Acetam inophen 10-325 MG Oral Tablet (Percocet)Indica tions:Chronic pain syndrome Take 1 Tablet by mouth every 6 hours as needed for Pain, Severe. Ongoing therapy 120 Tablet 09/06/20 24 Active oxyCODONE-Acetam inophen 10-325 MG Oral Tablet (Percocet)Indica tions:Chronic pain syndrome Take 1 Tablet by mouth every 6 hours as needed for Pain, Severe. Ongoing therapy 120 Tablet 08/08/20 24 024 Discontin ued(Refil l) documented as of this encounter (statuses as of 09/06/2024) Active Problems Problem Noted Date Diagnosed Date [...] as of this encounter (statuses as of 09/06/2024) Resolved Problems Problem Noted Date Diagnosed Date [...] Nocturnal oxygen desaturation 07/25/2013 04/19/2019 [facility] OTHER*[id number] 02/04/2013 07/25/2013 Obesity, morbid (more than 1 00 lbs over ideal weight or BMI > 40) 08/09/2012 07/09/2017 Overview: Per Obesity protocol #1 BMI 70 and over, adult 12/04/201111/28 Obstructive sleep apnea syndrome 09/04/2011 10/02/2011 Genetic Sleep Disorder Resea [facility] Other*[id number] 07/07/2011 05/07/2016 Morbid Obesity, BMI > 40 05/04/201105/2011 Adult body mass index 60.0-69.9 02/02/2011 12/04/2011 Morbid Obesity, BMI > 40 11/20/201010/2010 [facility] Research*[id number] 07/08/2010 12/18/2015 Overview (12/18/2015): 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 Research*[id number] 03/19/2010 06/26/2010 [facility] OTHER*[id number] 03/19/2010 03/10/2024 Overview (07/25/2013): Completed about 09/2010 [...] (01/01/2010): Per Obesity Taxonomy Heterozygous MTHFR mutation [id number] 07/28/2017 documented as of this encounter (statuses as of 09/06/2024) Immunizations Name Administration Dates Next Due COVID-19 [...] PM OCTAVIAT Mary Ellen Cardoza RN * Because of a physical, mental, or emotional condition, do you have difficulty doing errands alone such as visiting a doctor’s office or shopping? (15 years old or older) Answer Date of Assessment Author No 06/22/2021 5:50 PM OCTAVIAT Mary Ellen Leon RN documented as of this encounter Mental Status * Because of a physical, mental, or emotional condition, do you have serious difficulty concentrating, remembering, or making decisions? (5 years old or older) Answer Entry Date Author No 06/22/2021 5:50 PM OCTAVIAT Mary Ellen Cardoza RN documented in this encounter Miscellaneous Notes * Telephone Encounter - Krzysztof Pickering MD - 09/06/2024 8:27 AM ESTSigned Prescriptions: Disp Refills oxyCODONE-Acetaminophen 10-325 MG Oral Tab*120 Ta*0 Sig: Take 1 Tablet by mouth every 6 hours as needed for Pain, Severe. Ongoing therapy Authorizing Provider: KRZYSZTOF PICKERING * Telephone Encounter - Donita Raymundo [facility] - 09/05/2024 10:43 AM EST Pending Prescriptions: Disp Refills oxyCODONE-Acetaminophen 10-325 MG Oral Tab*120 Ta*0 Sig: Take 1 Tablet by mouth every 6 hours as needed for Pain, Severe. Ongoing therapy * Telephone Encounter - Donita Raymundo [facility] - 09/05/2024 10:42 AM EST I have reviewed the patient’s controlled substance dispensing history in the Prescription Drug Monitoring Program in compliance with the [facility] regulations before prescribing a controlled substance. PDMP checked on 09/05/2024. Pending Prescriptions: Disp Refills oxyCODONE-Acetaminophen 10-325 MG Oral Ta*120 Ta*0 Sig: Take 1 Tablet by mouth every 6 hours as needed for Pain, Severe. Ongoing therapy Last Visit: 04/15/2024 (in office), Visit date not found (telemedicine) Next Visit: 09/27/2024 Date medication was last filled: 08/08 Date medication is due for refill: 09/06 Pharmacy: [facility] [id number] [place] [address] Is this request for a controlled substance? [...] Review. Please approve if appropriate. Thank you, Donita Raymundo, PharmD Clinical Pharmacist [facility]) 09/05/24 10:42 AM [phone] documented in this encounter Plan of Treatment Upcoming Encounters Date Type Department Care Team (Late st Contact Info) Description 09/27/2024 10:20 AM EST Office Visit General Internal Medicine [place] [address] [place] [address] Krzysztof Pickering MD [address] [facility] [place] [address] 09/29/2024 11:40 AM EST [facility], [address] [facility] [place] [phone] [address] [facility] [address] [facility] [address] 10/26/2024 10:20 AM EST Office Visit Endocrinology [address] [place] [address] Kylee Cox MD [address] [facility] [place], [place] [address] 11/09/2024 8:00 AM EST Office Visit [facility] [address] [place] [address] Ramu Colby, DO [address] [place] [address] 11/16/2024 8:00 AM EST Office Visit [facility] [address] [place] [address] Ramu Colby, DO [address] [place] [address] 11/23/2024 8:00 AM EST Office Visit [facility] [address] [place] [address] Ramu Colby, DO [address] [place] [address] Scheduled Procedures Name Priority Associated Diagnoses Date/Ti [...] and were consensually agreed upon. Care Teams Front Desk Relationship Specialty Start Date End Date Krzysztof Pickering MD [address] [facility] [place] [address] PCP - General Internal Medicine 06/19/16 documented as of this encounter
--- OUTSIDE RECORDS SUMMARY | 2025-02-20 22:54 | External Medical Summary | Summary of Care ---
Author Name Unknown Organization [facility] Address [address] [place] [address] Phone [phone] Care Team Providers Care Solar Power Installer Name Role Phone Krzysztof Pickering MD Primary Care Provider + Reason for Referral * Evaluate & Treat - Unlimited Visits (Within 3 days (urgent)) - Authorized Specialty Diagnoses / Procedures Referred By Contjaiden t Referred To Contact Orthopaedic Surgery / Orthopedics Diagnoses Chronic right shoulder pain Krzysztof Pickering MD [facility] [place] [address] Phone: tel: fax: Referral ID Status Reason Start Date Expiration Date Visits Requested Visits Authorized [id number] Authorized Specialty Services Required 10/11/[phone] [...] Internal [place] [address] Krzysztof Pickering MD [address] [place] [address] [address] Chronic right shoulder pain*; Current severe episode [...] Nocturnal oxygen desaturation 07/25/2013 04/19/2019 [facility] OTHER*[id number] 02/04/2013 07/25/2013 Obesity, morbid (more than 1 00 lbs over ideal weight or BMI > 40) 08/09/2012 07/09/2017 Overview: Per Obesity protocol #1 BMI 70 and over, adult 12/04/201111/28 Obstructive sleep apnea syndrome 09/04/2011 10/02/2011 Genetic Sleep Disorder Resea [facility] Other*[id number] 07/07/2011 05/07/2016 Morbid Obesity, BMI > 40 05/04/201105/2011 Adult body mass index 60.0-69.9 02/02/2011 12/04/2011 Morbid Obesity, BMI > 40 11/20/201010/2010 [facility] Research*[id number] 07/08/2010 12/18/2015 Overview (12/18/2015): 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 Research*[id number] 03/19/2010 06/26/2010 [facility] OTHER*[id number] 03/19/2010 03/10/2024 Overview (07/25/2013): Completed about 09/2010 [...] (01/01/2010): Per Obesity Taxonomy Heterozygous MTHFR mutation Q6962A 07/28/2017 documented as of this encounter (statuses [...] level: Not on file Occupational History Occupation: [employer] back pain Employer: [employer] Comment: approved for [employer], approved 01/2010 Tobacco Use Smoking status: Former [...] Not Asked Social History Narrative born in [place] Currently lives with son and boyfriend (construction), 07/25/13 son at [employer], boyfriend works out of town Social Needs [...] Stability Do you currently live in a long-term or have no steady place to sleep [...] than or equal to 70 in adult ([facility]) 02/02/2020 CPAP (continuous positive airway pressure) dependence 07/25/2013 Deep vein thrombosis (DVT) of popliteal vein of left lower extremity ([facility]) 11/04/201610/2016 Depressive disorder, not elsewhere classified 10/2002 anxiety, diagnosed by Dr Mary PAUL Factor 5 Leiden mutation, heterozygous ([facility]) 11/07/2013 Heterozygous, molecular analysis has detected the R506Q mutation associated with factor V Leiden Generalized osteoarthritis of multiple sites GERD (gastroesophageal reflux disease) H/O deep venous thrombosis 07/28/2017 x2 H/O thrombophlebitis 07/28/2017 Heterozygous MTHFR mutation S5883F Heterozygous MTHFR mutation C677T History of kidney stones 02/04/2021 History of tobacco use quit in 1989 HTN, goal below 140/90 10/[address] Mary PAUL Hyperparathyroidism ([facility]) 07/27/2019 [address] Mary PAUL Major depressive disorder with single episode, in partial remission ([facility]) 07/30/2018 MEDICATION USE AGREEMENT 12/30/2006 Morbid obesity, BMI not known ([facility]) [facility] OTHER*[id number] 03/19/2010 Completed about 09/2010 Nocturnal oxygen desaturation [...] Bilateral right first, left second, Dr Glynn [facility] COLONOSCOPY, DIAGNOSTIC (RECTUM) 02/2018 adenomatous & hyperplastic polyps, diverticulosis, poor prep, repeat 5 yrs/[facility] COLONOSCOPY, DIAGNOSTIC (RECTUM) N/A 12/11/2023 poor prep/hemorrhoids/anal papilla hypertrophied/recall 3 years/Colonoscopy/[place] DILATION AND CURETTAGE (D&C) for irregular bleeding EGD, FLEXIBLE, DIAGNOSTIC 02/02/2015 mild inflammation/[facility] EGD, FLEXIBLE, DIAGNOSTIC N/A 03/12/2015 ESOPHAGOGASTRODUODENOSCOPY (EGD), FLEXIBLE, TRANSORAL, DIAGNOSTIC performed by Colby Ayala [facility] IR ASPIRATION ABSCESS/COLLECTION 04/16/2021 LAPAROSCOPE PROCEDURE, LIVER N/A 03/12/2015 UNLISTED LAPAROSCOPIC PROCEDURE LIVER performed by Ramon Will MD at OR [facility] MAMMOGRAM SCREENING BILATERAL 10/13/2010 birad 1, repeat in 12mths OTHER (INFORMATION) jaw surgery for fitting of partial dentures SLEEVE GASTRECTOMY, LAPROSCOPY N/A 03/12/2015 03/12/2015 LAPAROSCOPY SLEEVE GASTRECTOMY performed by Ramon Will MD at OR [facility] Family History Problem Relation Name Age of [...] symptoms or fever? No Have you had Guillain-Clearmont Syndrome (an illness that causes paralysis) within [...] any specific injury documented in this encounter Miscellaneous Notes * Addendum Note - Krzysztof Pickering MD - 10/11/2024 12:34 PM ESTAddended by: KRZYSZTOF PICKERING on: 10/11/2024 12:34 PM Modules accepted: Orders documented in this encounter Plan of Treatment Upcoming Encounters Date Type Department Care Team (Late st Contact Info) Description 10/26/2024 10:20 AM EST Office Visit Endocrinology [address] [place] [phone] Kylee Cox MD [address] [place], [place] [address] 11/09/2024 8:00 AM EST Office Visit [facility] [address] [place], [place] [phone] Ramu Colby, DO [address] [place] [address] 11/14/2024 8:30 AM EST Anticoagulation Pharmacy, [facility] [address] [facility] [place] [phone], [place] [address] 11/16/2024 8:00 AM EST Office Visit [facility] [address] [place] [address] Ramu Colby, DO [address] [place], [place] [address] 11/23/2024 8:00 AM EST Office Visit [facility] [address] [place] [address] Ramu Colby, DO [address] [place], [place] [address] 01/09/2025 10:20 AM EDT Office Visit [facility] Internal [facility] [address] [place] [address] Krzysztof Pickering MD [address] [facility] [place] [address] Scheduled Orders Name Type Priority Associated Diagnoses [...] arthropathy. No calcification. No fracture. Procedure Note Estuardo Swenson MD - 10/11/2024 EXAM XR SHOULDER, 2 OR MORE VIEWS-10/11/2024 12:15 pm HISTORY right shoulder pain COMPARISON None TECHNIQUE Four radiographs right shoulder. FINDINGS Acromioclavicular joint normally aligned and moderate osteoarthritis.Glenohumeral joint normally aligned and without arthropathy. Nocalcification. No fracture. IMPRESSION IMPRESSION No acute findings. Krzystzof Pickering MD RADIOLOGY (RAD GENERAL) Final Result documented in this encounter [...] and were consensually agreed upon. Care Teams Solar Power Installer Relationship Specialty Start Date End Date Krzysztof Pickering MD [address] [place] [address] PCP - General Internal Medicine 06/19/16 documented as of this encounter"
[2025-02-20] MEDS: ACETAMINOPHEN 1,000 MG/100 ML VIAL IV PRN (23:11)
[2025-02-21] MEDS: PIPERACILLIN/TAZOBACTAM 4.5 GM/100 ML BAG IV SCH (00:03)
[2025-02-21] MEDS: VANCOMYCIN HCL 1,750 MG in SODIUM CHLORIDE 0.9% 500 ML IV SCH (00:52)
[2025-02-21 04:38] LABS: Basophils # (auto) 0.02 K/uL (0.00-0.20); Basophils % (auto) 0.2 %; Eosinophils # (auto) 0.09 K/uL (0.00-0.50); Eosinophils % (auto) 0.8 %; Hemoglobin 12.4 g/dl (12.0-16.0); Immature Granulocytes # (auto) 0.03 K/uL (0.01-0.20); Immature Granulocytes % (auto) 0.3 %; Lymphocytes # (auto) 0.83 K/uL (1.20-3.40); Lymphocytes % (auto) 7.7 %; Mean Corpuscular Hemoglobin 30.5 pg (25.0-34.0); Mean Corpuscular Hgb Conc 32.6 g/dL (32.0-36.0); Mean Corpuscular Volume 93.4 fL (80.0-100.0); Mean Platelet Volume 10.1 fL (9.4-12.4); Monocytes % (auto) 10.2 %; Neutrophils # (auto) 8.73 K/uL (1.40-6.50); Neutrophils % (auto) 80.8 %; Platelet Count 143 K/uL (130-400); RDW Coefficient of Variation 13.6 % (11.5-14.5); Red Blood Count 4.07 M/uL (4.20-5.40)
[2025-02-21 04:46] LABS: INR 2.4 (0.9-1.1); Prothrombin Time 24.4 Seconds (9.0-12.0)
[2025-02-21 05:04] LABS: BUN Creatinine Ratio 17.9 (10-20); Calcium 8.2 mg/dl (8.6-10.3); Creatinine Clr Calc Pharmacy 174.3 ml/min; Magnesium 1.8 mg/dl (1.7-2.4); Potassium 3.4 mmol/L (3.5-5.1)
[2025-02-21 05:12] LABS: Troponin I High Sensitivity 15.7 pg/ml (0-14)
[2025-02-21] MEDS: LEVOTHYROXINE SODIUM 88 MCG TABLET PO SCH (05:58)
[2025-02-21] MEDS: DULoxetine HCL 60 MG CAP PO SCH (10:12)
[2025-02-21] MEDS: PANTOprazole 40 MG TAB PO SCH (10:12)
[2025-02-21] MEDS: FLUTICASONE PROPIONATE NA SPR 16 GM BTL SCH (10:13)
[2025-02-21] MEDS: FUROSEMIDE 20 MG TAB PO SCH (10:13)
[2025-02-21] MEDS: buPROPion SR 150 MG TABCR PO SCH ×2 (10:14→13:45)
--- NOTE | 2025-02-21 10:19 | Pharmacy Report ---
Pharmacy PK ABX Note - Date of Service February 21, 2025 - Assessment and Plan Assessment 55 year old F receiving Vancomycin, Azithromycin, and Zosyn for empiric treatment of sepsis possibly due to pneumonia and/or UTI. * Day #2 of antimicrobial therapy. * 24-hr Tmax of 38.3oC. Leukocytosis improving, 10.8k today. SCr stable, 0.67 mg/dL today. Lactate normal. Procalcitonin was 0.49 ng/mL. * Blood cultures pending. UA with reflex culture and MRSA nasal swab uncollected. Respiratory biofire negative. Plan Vancomycin * Loading dose: 2750 mg IV x 1 * Maintenance dose: 1750 mg IV every 12 hours * Regimen is predicted to achieve target AUC/ELOY of 400-600 mg/L.hr * Vancomycin level will not be ordered unless therapy extends beyond 48 hours. Azithromycin * 500 mg IV every 24 hours Zosyn * 4.5 g IV every 8 hours Pharmacy will continue to follow and will adjust dose/frequency as necessary. Thank you. Pharmacy has transitioned to AUC monitoring for vancomycin. AUC/ELOY is the preferred PK/PD target and is associated with decreased risk of nephrotoxicity compared to traditional trough targets.
[2025-02-21] MEDS ORDERED: POTASSIUM CHLORIDE CRTAB 20 MEQ TABCR PO STA (10:26)
[2025-02-21] MEDS: POTASSIUM CHLORIDE CRTAB 20 MEQ TABCR PO SCH (13:44)
[2025-02-21] MEDS: WARFARIN SOD 10 MG TAB PO SCH (15:47)
[2025-02-21] MEDS ORDERED: WARFARIN SOD 10 MG TAB PO SCH (16:00)
--- NOTE | 2025-02-21 16:20 | Hospitalist Progress Note ---
Date of Service February 21, 2025 Assessment & Plan (1) Sepsis: Plan: 55-year-old female with past medical history significant for heterozygous MTHFR mutation, factor V Leiden mutation heterozygous, history of DVT, history of thrombophlebitis, on Coumadin, hypothyroidism, obstructive sleep apnea not using CPAP or oxygen as per significant other, hypertension, chronic pain syndrome, history of kidney stones, history of major depression with severe psychotic features who lives at home with her significant other was brought in because of fever and confusion. Sepsis Encephalopathy Right lower extremity cellulitis Pneumonia VBG unremarkable ER started empirically on Vanco and Zosyn which will be continued and azithromycin added for pneumonia Lactic acid is 0.9 Procalcitonin 0.4 Hemodynamics stable currently UA pending Blood cultures NGTD Pneumonia on chest imaging CT head and abdomen pelvis as patient has history of kidney stones-no acute findings Close monitoring telemetry Improving Hypoxia For some time in the ER Chest x-ray possible CHF versus pneumonia ER ordered 1 dose of IV Lasix 20 mg BNP slight elevation Echo with EF 55-60%, Grade [address] chest showing pneumonia Closely monitor Mild elevation troponin Top downtrending EKG without signs of ischemia echo as above Obstructive sleep apnea Not using oxygen or CPAP as per significant other VBG stable Appears to be following with sleep oxygen supplementation, cpap ordered qhs Monitoring Hypothyroidism Continue Synthroid Chronic pain syndrome Hold home narcotic pain medications for now History of DVT MTHFR mutation Factor V Leiden mutation On Coumadin INR therapeutic monitor PT/INR GERD On omeprazole Depression on Wellbutrin on duloxetine Lower extremity edema Continue home Lasix 20 milligrams daily DVT prophylaxis INR therapeutic Follow PT/INR Disposition Telemetry Full code. Admission and Anticipated Discharge Date Admission Date: February 20, 2025 Subjective Pt was seen with significant other at bedside Asking about going home but stating she does not remember what brought her in they are concerned about RLE cellulitis Review of Systems Review of Systems: All systems reviewed & are unremarkable except as noted in Subjective Physical Exam Physical Exam: General: Alert, oriented. No acute distress, obese Skin:RLE with increased erythema and warmth HEENT: NC/AT CV: RRR Resp: Breath sounds decreased bilaterally, no increased effort of breathing Abdomen: Soft, nontender Extremities: RLE with increased erythema and warmth, >LLE Results & Data Results & Data Vital Signs (Past 12 Hours) Vital Signs Temp Pulse Resp BP BP Pulse Ox O2 Del Method 02/21/25 15:38 36.6 C 76 18 155/87 H 92 Nasal Cannula 02/21/25 11:26 36.6 C 67 18 136/82 97 Nasal Cannula 02/21/25 08:20 02/21/25 07:29 36.6 C 72 18 131/91 99 Room Air O2 Flow Rate 02/21/25 15:38 1 02/21/25 11:26 1 02/21/25 08:20 2 02/21/25 07:29
[2025-02-21 18:19] LABS: Appearance Urine Clear (Clear); Bacteria Urine Automated None Seen (None Seen); Bilirubin Urine 1+ (Negative); Blood Urine Negative (Negative); Cast Urine Automated 0-2 /lpf (0-2); Color Urine Dark Yellow; Epithelial Cell Urine Auto 0-2 /hpf (0-2); Glucose Urine UA Negative (Negative); Ketones Urine 1+ (Negative); Leukocyte Esterase Urine Negative (Negative); Nitrite Urine Negative (Negative); Protein Urine 1+ (Negative); Specific Gravity Urine 1.044 (1.000-1.030); Urobilinogen Urine Negative (Negative); WBC Urine Automated 0-5 /hpf (0-5); pH Urine 5.5 (4.5-7.5)
[2025-02-21 18:25] LABS: RBC Urine Automated 0-2 /hpf (0-2)
--- NOTE | 2025-02-22 00:46 | Communication Note ---
Date of Service: February 22, 2025
[2025-02-22] MEDS: ACETAMINOPHEN 325 MG TAB PO PRN (01:30)
--- NOTE | 2025-02-22 02:15 | CT Scan Report ---
EXAM: CT head/brain wo con CLINICAL HISTORY: Headaches, coumadin. TECHNIQUE: Axial non-contrast CT scan of the brain was performed from the skull base to the high parietal region. One of the following dose reduction techniques were utilized for this exam: Automated exposure control, adjustment of the mA and/or kV according to patient size, use of iterative reconstruction. COMPARISON: 02/20/2025 16:34:00 [employer]. FINDINGS: Brain Parenchyma: Normal attenuation of the cerebral hemispheres, cerebellum, and brainstem. No evidence of acute infarct, hemorrhage, or mass effect. No abnormal areas of hypo- or hyperattenuation. Ventricular System: Ventricles are normal in size and configuration. No evidence of hydrocephalus or ventricular enlargement. Subarachnoid Spaces: Normal sulci and cisterns. No evidence of subarachnoid hemorrhage or extra-axial fluid collections. Cerebellum and Brainstem: No masses, lesions, or areas of abnormal density. Orbits: Normal appearance of the globes, optic nerves, and extraocular muscles. 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 No evidence of orbital masses or abnormal density. Sinuses: Clear paranasal sinuses. No evidence of sinusitis or mucosal thickening. Mastoid Air Cells: Clear mastoid air cells. No evidence of mastoiditis. Skull: Normal skull morphology. IMPRESSION: 1. No evidence of acute brain insult. 2. 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 3. No interval time changes. Electronically signed by Wil Rudd 02-22-2025 02:14 AM
[2025-02-22 06:24] LABS: Basophils # (auto) 0.02 K/uL (0.00-0.20); Basophils % (auto) 0.3 %; Eosinophils % (auto) 3.1 %; Hematocrit (blood only) 39.1 % (37.0-47.0); Immature Granulocytes # (auto) 0.01 K/uL (0.01-0.20); Immature Granulocytes % (auto) 0.2 %; Lymphocytes # (auto) 0.74 K/uL (1.20-3.40); Lymphocytes % (auto) 11.6 %; Mean Corpuscular Hemoglobin 30.7 pg (25.0-34.0); Mean Corpuscular Hgb Conc 33.2 g/dL (32.0-36.0); Mean Corpuscular Volume 92.2 fL (80.0-100.0); Mean Platelet Volume 10.4 fL (9.4-12.4); Monocytes # (auto) 0.69 K/uL (0.11-0.59); Monocytes % (auto) 10.8 %; Platelet Count 181 K/uL (130-400); RDW Coefficient of Variation 13.5 % (11.5-14.5); RDW Standard Deviation 46.1 fL (36.4-46.3); Red Blood Count 4.24 M/uL (4.20-5.40); White Blood Count 6.36 K/ul (4.8-10.8)
[2025-02-22 06:46] LABS: INR 3.9 (0.9-1.1); Prothrombin Time 37.9 Seconds (9.0-12.0)
[2025-02-22 06:51] LABS: Albumin Globulin Ratio 0.9 (0.9-2); Albumin Level 3.3 gm/dl (3.4-5.0); BUN Creatinine Ratio 15.3 (10-20); Bilirubin,Total 0.8 mg/dl (0.2-1.0); Calcium 8.4 mg/dl (8.6-10.3); Creatinine Clr Calc Pharmacy 186.7 ml/min; Globulin 3.6 gm/dl (2.5-4.0); Magnesium 1.7 mg/dl (1.7-2.4); Phosphorus 2.2 mg/dl (2.5-4.9); Potassium 3.5 mmol/L (3.5-5.1); Total Protein 6.9 gm/dl (6.0-8.3)
--- NOTE | 2025-02-22 11:57 | Hospitalist Progress Note ---
Date of Service February 22, 2025 Assessment & Plan (1) Sepsis: Plan: 55-year-old female with past medical history significant for heterozygous MTHFR mutation, factor V Leiden mutation heterozygous, history of DVT, history of thrombophlebitis, on Coumadin, hypothyroidism, obstructive sleep apnea not using CPAP or oxygen as per significant other, hypertension, chronic pain syndrome, history of kidney stones, history of major depression with severe psychotic features who lives at home with her significant other was brought in because of fever and confusion. Sepsis Acute Metabolic Encephalopathy- resolved Right lower extremity cellulitis Possible Pneumonia Patient presented to the hospital with fever and confusion. Tmax of 38.3 C on admission. Likely source of infection is right lower extremity cellulitis CTA chest showed mild bilateral pneumonia Blood cultureno growth till date CT abdomen pelvisno acute finding Continue on current antibiotics; patient mentation improved significantly. Follow-up on blood culture results. Plan to treat for 5 to 7 days Mild elevation troponin Likely demand ischemia High sensitive troponin mildly elevated to 23 on admission; down trended Denies chest pain or discomfort Echocardiogram shows EF of 55 to 60% with grade 1 diastolic dysfunction Obstructive sleep apnea Not using oxygen or CPAP as per significant other VBG stable Appears to be following with sleep oxygen supplementation, cpap ordered qhs Monitoring Hypothyroidism-Continue Synthroid Chronic pain syndrome-Hold home narcotic pain medications for now History of DVT MTHFR mutation Factor V Leiden mutation On Coumadin INR therapeutic monitor PT/INR GERD On omeprazole Depression on Wellbutrin on duloxetine Lower extremity edema Continue home Lasix 20 milligrams daily DVT prophylaxis INR therapeutic Follow PT/INR Disposition- from home, PT/OT ordered. Full code. Time spent evaluating patient, direct bedside care, chart review, placing orders, interpretation of diagnostic studies, discussion with consultants, patient, and family members, as well as other required patient management activities is 50 minutes Please note the above document was generated using voice recognition software. It may contain grammatical, syntax or spelling errors. Any formal questions or concerns about the content, text or information contained within the body of this dictation should be directly addressed to the provider for clarification Admission and Anticipated Discharge Date Admission Date: February 20, 2025 Subjective Patient seen and examined at bedside. She is comfortably lying in the bed; not in any distress. She denies fever, chills, chest pain or shortness of breath No significant events overnight Review of Systems Review of Systems: All systems reviewed & are unremarkable except as noted in Subjective Physical Exam Physical Exam: General: Alert, oriented. No acute distress, obese Skin:RLE with increased erythema and warmth HEENT: NC/AT CV: RRR Resp: Breath sounds decreased bilaterally, no increased effort of breathing Abdomen: Soft, nontender Extremities: RLE with increased erythema and warmth, >LLE Results & Data Results & Data Vital Signs (Past 12 Hours) Vital Signs Temp Pulse Pulse Resp BP Pulse Ox O2 Del Method 02/22/25 11:27 36.8 C 77 18 143/86 H 95 Room Air 02/22/25 10:23 72 02/22/25 10:08 Room Air 02/22/25 07:09 36.9 C 71 18 135/79 95 Room Air 02/22/25 03:15 36.9 C 82 20 131/84 91 Nasal Cannula
--- NOTE | 2025-02-22 12:51 | Pharmacy Report ---
Pharmacy PK ABX Note - Date of Service February 22, 2025 - Assessment and Plan Assessment 02/22: * Day #3 of Vancomycin, Azithromycin, and Zosyn. * Provider would like to complete 5 days of Vancomycin for possible PNA given positive MRSA nasal swab. * Labs improved. Afebrile. No growth to date in blood cultures. 02/21: 55 year old F receiving Vancomycin, Azithromycin, and Zosyn for empiric treatment of sepsis possibly due to pneumonia and/or UTI. * Day #2 of antimicrobial therapy. * 24-hr Tmax of 38.3oC. Leukocytosis improving, 10.8k today. SCr stable, 0.67 mg/dL today. Lactate normal. Procalcitonin was 0.49 ng/mL. * Blood cultures pending. UA with reflex culture and MRSA nasal swab uncollected. Respiratory biofire negative. Plan Vancomycin * Current regimen: 1750 mg IV every 12 hours * Trough level obtained 02/22/25 resulted as 11.7 mcg/mL. This is predicted to achieve target AUC/ELOY of 400-600 mg/L.hr * Predicted AUC at steady state: 520 mg/L.hr * Continue 1750 mg IV every 12 hours * Will repeat level in the next 48-72 hours if therapy is continued and/or change in patient clinical status Azithromycin * 500 mg IV every 24 hours Zosyn * 4.5 g IV every 8 hours Pharmacy will continue to follow and will adjust dose/frequency as necessary. Thank you. Pharmacy has transitioned to AUC monitoring for vancomycin. AUC/ELOY is the preferred PK/PD target and is associated with decreased risk of nephrotoxicity compared to traditional trough targets.
[2025-02-22] MEDS: VANCOMYCIN LEVEL ONE (13:53)
[2025-02-22] MEDS: oxyCODONE HCL IR 5 MG TAB (IMMEDIATE RELEASE) PO PRN (21:50)
[2025-02-23 06:14] LABS: Basophils # (auto) 0.03 K/uL (0.00-0.20); Basophils % (auto) 0.4 %; Eosinophils # (auto) 0.25 K/uL (0.00-0.50); Eosinophils % (auto) 3.5 %; Hemoglobin 12.4 g/dl (12.0-16.0); Immature Granulocytes # (auto) 0.03 K/uL (0.01-0.20); Immature Granulocytes % (auto) 0.4 %; Lymphocytes # (auto) 0.81 K/uL (1.20-3.40); Lymphocytes % (auto) 11.3 %; Mean Corpuscular Hemoglobin 30.8 pg (25.0-34.0); Mean Corpuscular Hgb Conc 33.5 g/dL (32.0-36.0); Mean Platelet Volume 10.2 fL (9.4-12.4); Monocytes # (auto) 1.03 K/uL (0.11-0.59); Monocytes % (auto) 14.3 %; Neutrophils # (auto) 5.03 K/uL (1.40-6.50); Neutrophils % (auto) 70.1 %; Platelet Count 186 K/uL (130-400); RDW Coefficient of Variation 13.6 % (11.5-14.5); RDW Standard Deviation 46.4 fL (36.4-46.3); Red Blood Count 4.02 M/uL (4.20-5.40); White Blood Count 7.18 K/ul (4.8-10.8)
[2025-02-23 06:38] LABS: Albumin Level 3.3 gm/dl (3.4-5.0); BUN Creatinine Ratio 12.5 (10-20); Bilirubin,Total 0.8 mg/dl (0.2-1.0); Calcium 8.3 mg/dl (8.6-10.3); Creatinine Clr Calc Pharmacy 197.4 ml/min; Globulin 3.4 gm/dl (2.5-4.0); Magnesium 1.7 mg/dl (1.7-2.4); Phosphorus 2.6 mg/dl (2.5-4.9); Potassium 3.3 mmol/L (3.5-5.1); Total Protein 6.7 gm/dl (6.0-8.3)
[2025-02-23 06:42] LABS: INR 4.5 (0.9-1.1); Prothrombin Time 42.4 Seconds (9.0-12.0)
[2025-02-23 07:48] VITALS: RESP 18
[2025-02-23 10:58] VITALS: TEMP 97.9; O2SAT 91
--- NOTE | 2025-02-23 12:46 | Discharge Summary ---
Date of Service February 23, 2025 Admission HPI Per Admitting Provider 55-year-old female with past medical history significant for heterozygous MTHFR mutation, factor V Leiden mutation heterozygous, history of DVT, history of thrombophlebitis, on Coumadin, hypothyroidism, obstructive sleep apnea not using CPAP or oxygen as per significant other, hypertension, chronic pain syndrome, history of kidney stones, history of major depression with severe psychotic features who lives at home with her significant other was brought in because of fever and confusion. Patient is somewhat drowsy but arousable. Does not want to answer any questions. Difficult to get her to answer. Knows that she is in the ER. Knows her name. Could not tell current dates. Denies any headache. Denies neck pain. Denies chest pain. Denies shortness of breath. Denies nausea. Denies abdominal pain. Denies any diarrhea. Patient says that she ambulates without support. She also said that she uses oxygen in the nighttime.At one point in ER she was requiring oxygen but currently without oxygen she is saturating okay . Her significant other brought her to the hospital. Called significant other. As per significant other patient started to get sick Thursday night. She was complaining of tiredness and whole body ache. And her right leg is somewhat more erythematous. And last night or today she started to have fever and some confusion and was brought to the ER. As per significant other no cough other than usual. No nausea. No diarrhea. As per significant other patient does not uses oxygen or CPAP in the nighttime. Patient has history of cellulitis in both legs. In April 2021 she was transferred to [place] for abscess of the right lower extremity and she is status post IR drainage. She was again admitted on 05/25/2021 for left leg cellulitis and at the time deep wound cultures grew E. coli and Pseudomonas and she was discharged on cefepime. Past medical history. As mentioned above. Past surgical history. Bilateral carpal tunnel surgery. Colonoscopy. Dilatation curettage for irregular bleeding. EGD. IR aspiration of abscess 04/16/2021. Laparoscopic procedure of liver. Jaw surgery for fitting of partial dentures. Laparoscopic sleeve gastrectomy in 2014. Social history. Quit smoking 2000. Smoked 0.5 pack a day for 2 years. No alcohol use. No drug use. Family history. Maternal aunt had breast cancer. Cousin had breast cancer. Mother had diabetes. Blocked bowel. Hypertension. Thyroid disorder. Father had heart disorder. Paternal grandfather had heart disorder. Admission Exam Per Admitting Provider General- Drowsy Head- atraumatic Eyes- PERRL. ENT- oropharynx dry Neck- supple, no JVD. Lungs- clear to auscultation no wheezing or crackles Heart- regular rhythm; no murmur, no gallop. Abdomen- normal bowel sounds, soft, nontender, no distension Extremities- b/l lower extremity lymphedema and chronic skin changes seen. right lower extremity erythematous below knee region Neuro- alert, oriented x 2; PERRL, no facial palsy; no dysarthria; moves extremities Principal Diagnosis Sepsis Acute Metabolic Encephalopathy- resolved Right lower extremity cellulitis Possible Pneumonia Discharge Exam General: Alert, oriented. No acute distress, obese Skin:RLE with increased erythema and warmth HEENT: NC/AT CV: RRR Resp: Breath sounds decreased bilaterally, no increased effort of breathing Abdomen: Soft, nontender Extremities: RLE with increased erythema and warmth, >LLE Discharge Data Allergies Allergy/AdvReac Type Severity Reaction Status Date / Time latex Allergy Intermediate SKIN Verified 12/11/23 08:20 IRRITATION nylon Allergy Mild erythema/pus Verified 12/11/23 08:20 nylon sutures adhesive AdvReac Intermediate skin Verified 12/11/23 08:20 tearing bacitracin AdvReac Mild SKIN Verified 12/11/23 08:20 [From Neosporin INFECTION ([id number])] neomycin AdvReac Mild SKIN Verified 12/11/23 08:20 [From Neosporin INFECTION ([id number])] polymyxin B AdvReac Mild SKIN Verified 12/11/23 08:20 [From Neosporin INFECTION ([id number])] Consultations 02/20/25 15:26 ED Decision to Admit Stat Ordered Studies 02/20/25 15:40 CT angio chest PE protocol Urgent 02/20/25 16:14 CT abd pelvis wo con Urgent 02/20/25 16:18 CT head/brain wo con Urgent 02/22/25 00:46 CT head/brain wo con Stat Hospital Course (1) Sepsis: 55-year-old female with past medical history significant for heterozygous MTHFR mutation, factor V Leiden mutation heterozygous, history of DVT, history of thrombophlebitis, on Coumadin, hypothyroidism, obstructive sleep apnea not using CPAP or oxygen as per significant other, hypertension, chronic pain syndrome, history of kidney stones, history of major depression with severe psychotic features who lives at home with her significant other was brought in because of fever and confusion. Sepsis Acute Metabolic Encephalopathy- resolved Right lower extremity cellulitis Possible Pneumonia Patient presented to the hospital with fever and confusion. Tmax of 38.3 C on admission. Likely source of infection is right lower extremity cellulitis CTA chest showed mild bilateral pneumonia Blood cultureno growth till date CT abdomen pelvisno acute finding Blood cx- NGTD During the hospitalization, patient was treated with IV antibiotics with improvement in mentation, pain/swelling of right lower extremity. She was weaned off to room air during the hospitalization. She was independent with her ADLs. Patient was discharged on Augmentin and doxycycline for 7 more days to complete the treatment course for right lower extremity cellulitis and pneumonia. The duration of the antibiotic may need to be increased depending on clinical improvement during her follow-up with her primary care doctor. Her Coumadin was kept on hold due to elevated PT/INR; patient was recommended to f ollow-up with anticoagulation clinic as soon as possible. Patient verbalized understanding of the instructions. Please note the above document was generated using voice recognition software. It may contain grammatical, syntax or spelling errors. Any formal questions or concerns about the content, text or information contained within the body of this dictation should be directly addressed to the provider for clarification Total Time Total Time Spent Total Time Spent (In Minutes): 45 Total Time Includes: Examination of the Patient, Discharge Planning, Medication Reconciliation, Communication With Other Providers and Other Discharge Plan Discharge Items Patient Disposition: Home - Self-Care Reason For Visit: SEPSIS, CONFUSION Discharge Diagnosis: Sepsis Acute Metabolic Encephalopathy- resolved Right lower extremity cellulitis Possible Pneumonia Condition on Discharge: Fair Activity: Resume your previous activity Non-emergency contact: Primary Care Provider Call non-emergency contact if: you have any medication questions and your symptoms worsen Follow-up/Referrals: Krzysztof Pickering MD [Primary Care Provider] - Diet: Regular Addtl Attending Provider Instructions: You were admitted to the hospital due to right lower extremity cellulitis. It is likely cause for the fever. You also have possible pneumonia which was seen in the CT scan. You are prescribed following medication; Augmentin twice a day for 7 days Doxycycline twice a day for 7 days An appointment will be set up with your primary care doctor for sometime next week. The duration of the antibiotic may need to be extended based on the response. Your Coumadin has been kept on hold. Your INR on the day of the discharge was 4.5. Please follow-up with anticoagulation clinic. Pending Studies at Discharge: No Stand-Alone Forms: My [facility], Smoking Cessation Medications and DC Order Prescriptions: New amoxicillin-pot clavulanate 875-125 mg tablet 1 tab PO BID 7 Days Qty: 14 0RF doxycycline hyclate 100 mg capsule 100 mg PO BID 7 Days Qty: 14 0RF Continued calcium carbonate 600 mg calcium (1,500 mg) tablet 600 mg PO TID cyclobenzaprine 5 mg tablet 5 mg PO HS PRN (Reason: MUSCLE SPASMS) fluticasone propionate 50 mcg/actuation spray,suspension 2 sprays intranasal DAILY furosemide 20 mg tablet 20 mg PO QAM levothyroxine 88 mcg tablet 88 mcg PO QAM Patient Comments: 88 mcg PO Take 1 tablet 4 days a week. TAKE ON AN EMPTY STOMACH WITH A FULL GLASS OF WATER, WAIT 30 MINUTES TO EAT, DRINK, OR TAKE MEDICATIONS; omeprazole 20 mg tablet,delayed release (DR/EC) 40 mg PO QAM Vitron-C 65 mg iron- 125 mg tablet,delayed release (DR/EC) 1 tab PO TID fexofenadine-pseudoephedrine [Ayde-D 12 Hour] 60-120 mg Tablet Extended Release 12 Hr 1 tab PO Q12H PRN (Reason: Allergy Symptoms) duloxetine 60 mg Capsule,Delayed Release(Dr/Ec) 60 mg PO QAM bupropion HCl [Wellbutrin SR] 150 mg tablet sustained-release 12 hr 150 - 300 mg PO UD Rx Instructions: Take 2 tablets in the morning and 1 tablet in the afternoon not later than 1 pm oxycodone-acetaminophen 10-325 mg tablet 1 tab PO Q6H PRN (Reason: Severe Pain (Scale Score 7-10)) Held warfarin 10 mg tablet See Rx Instructions .ROUTE .COMPLEX Hold Instructions: Resume on 02/27/25. Please repeat PT/INR with anticoagulation clinic and resume Coumadin as per recommendation. Rx Instructions: 10 mg orally: TAKES 10 MG ON THU, and . TAKES 5 MG Thu, Thu, Thu and Sat Discharge Orders: Discharge Order (Routine); Ordered 02/23/25 Ordered By: Bruce Stone Admission Data Admit Date/Time: 02/20/25 15:44 Attending Provider: Bruce Stone Admit Provider: Adam Giron Primary Care Provider: Krzysztof Pickering Other Providers: Adam Giron
[2025-02-23 12:57] VITALS: BP 132/90; PULSE 70
== END 2025-02-23 13:16 | disposition home or self-care (01) | DRG 871 ==
LOC: ED 13:03 → SUATTDRO 15:44 → 4W 15:44 → 2E 21:39

== ENCOUNTER 2025-04-29 16:09 | Inpatient (IN) ==
[2025-04-29] MEDS: SODIUM CHLORIDE 0.9% 1,000 ML IV SCH ×2 (16:44→23:16)
--- NOTE | 2025-04-29 16:48 | Emergency Department Note ---
Impression & Plan Sepsis, Encephalopathy acute, Cellulitis, Hypomagnesemia, KASHIF (acute kidney injury), Acute non-ST elevation myocardial infarction (NSTEMI) ED Provider Note NAME: AGUSTÍN NASSAR AGE: 55 SEX: F : 1970 ARRIVES VIA: Ambulance INFORMANT: Patient, EMS, partner ED PROVIDER(S): Bruno Adame DO CHIEF COMPLAINT: leg pain HPI: This is a 55-year-old female with the PMHx of heterozygous MTHFR mutation, factor V Leiden mutation heterozygous, history of DVT On chronic anticoagulation with Coumadin, hypothyroidism, ELAN/OHS, hypertension, HLD chronic pain syndrome and depression/?bipolar disorder presenting to [facility] for further evaluation of leg pain. Patient is accompanied by EMS who provide additional history. Patient is moaning and unable to provide further history review of systems. Patient's boyfriend at the bedside states that she has been in bed since yesterday evening. She has been dealing with cellulitis of her lower extremities. He states that she has not been able to get out of bed and took 1.5 hours to get her from upstairs. She was brought in by EMS. EMS unable to provide any further history as the patient will not cooperate. Partner is unsure what is going on. She seems to be acting herself but very fatigued. He states she has cellulitis of the bilateral lower extremities with severe pain. They deny fever or chills. No cough or congestion. Denies chest pain or palpitations. No shortness of breath. They deny abdominal pain, nausea and vomiting. No urinary complaints. No recent changes in bowel movements. Patient denies recent changes in medications or OTC supplements. Patient offers no other complaints, today. ADDITIONAL HISTORY OBTAINED: Per HPI Chronic Medical/Social Conditions Affecting Care: Per HPI PAST MEDICAL HISTORY: See Below PAST SURGICAL HISTORY: See Below FAMILY HISTORY: See Below SOCIAL HISTORY: See Below HOME MEDICATIONS: See Below ALLERGIES: See Below VITALS: See Below PHYSICAL EXAMINATION: GENERAL: Morbid obesity, moaning, does not interact, no distress, non-toxic EYE EXAM: normal conjunctiva. OROPHARYNX: no exudate, no erythema, lips, buccal mucosa, and tongue normal and mucous membranes are dry NECK: supple, no nuchal rigidity, no adenopathy, non-tender, No meningeal signs LUNGS: Clear to auscultation. Normal chest wall mechanics HEART: no murmurs, regular rate, regular rhythm ABDOMEN: abdomen soft, non-tender, normo-active bowel sounds, no masses, no rebound or guarding. BACK: Back is symmetrical on inspection and there is no deformity, no midline tenderness, no CVA tenderness. no sacral or back wounds. SKIN: no rashes and no bruising UPPER EXTREMITIES: upper extremities are grossly normal. LOWER EXTREMITIES: lymphedema noted. Seen does have possible cellulitis with erythema and warmth of the posterior left lower extremity. NEURO EXAM: Normal sensorium, GCS 14, patient refuses to cooperate with examination. MEDICAL DECISION MAKING: Differential diagnoses includes but not limited to sepsis, bacteremia, hypoglycemia, electrolyte derangements, dehydration, shock, CVA, ICH, hydrocephalus, NPH, UTI, pneumonia, viral URI, postictal period, ACS, dysrhythmia, metabolic encephalopathy, multifactorial encephalopathy, hypercapnia, hypoxia, polypharmacy, substance use In summary, this is a 55 year old female who presented with AMS. Differential as above. Nursing notes and pertinent past medical records reviewed. Vital signs reviewed and the patient is febrile with a heart rate above 90 on arrival to the emergency department patient's hemodynamics are otherwise stable. She does have intermittent oxygen desaturations likely related to obesity hypoventilation syndrome. The patient has also sleeping on her stomach and intermittently has a poor waveform for her pulse oximetry. She may require oxygen but this is unclear. Largely feel this is due to noncompliance with CPAP and her ELAN/OHS. Low-flow nasal cannula was applied with improvement. History and presentation revealed it is almost impossible to gain history or review of systems from the patient as she is confused. The patient seems to be nonfocal. She does not seem meningeal. Patient seems to be more encephalopathic on my exam. Given the patient's fever, I suspect possible infectious etiologies that may be a combination of metabolic derangements as well. I would still like to obtain a CT head on this patient. As a result of my initial evaluation, the patient is altered and not forthcoming with history. She is also tachycardic and febrile. Plan for sepsis alert with CT head for further evaluation. I do not find evidence of cellulitis in the lower extremities.. Diagnostics interpreted by me include EKG and cardiac monitoring as listed below: -Cardiac Monitoring: An order was placed for continuous cardiac monitoring. The monitor shows a rate of 75-95 with regular rhythm. -ECG: EKG independently interpreted reveals normal sinus rhythm at a ventricular rate of [address] segment changes suggest STEMI. Patient completed laboratory studies and imaging. Results independently interpreted by me are she has a mild leukocytosis. Lactate is normal. The patient was managed with IVFR and abx. Chest x-ray independently interpreted by me reveals bilateral perihilar patchy infiltrates. Slightly worse disc compared to prior. Could represent fluid or infection. No obvious pneumothorax or pleural effusion. Troponin was elevated at 73.7. This is higher than usual for her. She has not had symptoms of angina but her history is poor. No significant EKG changes. Will load with aspirin. Suspect this is likely type II IN in the setting of demand ischemia from sepsis. For this reason, do not feel IV heparin is necessary. Procalcitonin noted to be elevated at 3.52. KASHIF noted and we continued IVFR with a second liter of crystalloid. Did not feel full sepsis bolus of fluids was necessary as the patient is normotensive without tachycardia and appears to be mildly hypervolemic on exam/imaging. I assisted nursing staff with straight catheterization urinalysis at 1910. Urine is extremely dark reddish-brown. Will add CK level. Suspect she could have a urinary tract infection. Hypomagnesemia noted and IV replenishment ordered. The patient refused further imaging but she was agreeable to hospitalization. Suspect source could be LLE cellulitis. Ultimately, the decision was made to admit the patient for sepsis secondary to cellulitis complicated by electrolyte derangements and patient was seen and evaluated at the bedside w/ [] . Please see their note for history, physical, details, and disposition.multifactorial encephalopathy. It was recommended to admit this patient at 1927. I discussed the case with the hospitalist service via [employer] and they are agreeable to admit the patient to their services at [address] Giron. Based on the above, including the patient's age, coexisting illnesses, labs, imaging, and exam findings the decision to treat as an inpatient. I discussed the patient with the hospitalist team who recommended admission to their services. They received the medications, treatments, interventions indicated above and their condition remained guarded. I discussed my findings with the patient and their family and they understand and agree with the treatment plan. All patient / family questions were answered to their satisfaction. Consults/Care Managements Discussions: Per MDM ER treatment provided: See above Procedures:none Critical Care: None The chart was completed utilizing [email or web address] Speech voice recognition software. Grammatical errors, random word insertions, pronoun errors, and incomplete sentences are an occasional consequence of this system due to software limitations, ambient noise, and hardware issues. Any formal questions or concerns about the content, text, or information contained within the body of this dictation should be directly addressed to the physician for clarification. Past Med/Surg History Problem List Acute non-ST elevation myocardial infarction (NSTEMI) (Acute) KASHIF (acute kidney injury) (Acute) Hypomagnesemia (Acute) Cellulitis (Acute) Encephalopathy acute (Acute) Sepsis (Acute) Sepsis (Acute) Bilateral cellulitis of lower leg (Acute) Encounter for pre-operative examination UTI (urinary tract infection) Small bowel obstruction Partial small bowel obstruction (Acute) Venous stasis ulcer (Acute) Supratherapeutic INR Iron deficiency anemia Leukocytosis (Acute) Pneumonia (Acute) Cellulitis of leg, right (Acute) Hypothyroidism MDD (major depressive disorder) Hypokalemia Acute encephalopathy SIRS (systemic inflammatory response syndrome) (Acute) Fever (Acute) GERD (gastroesophageal reflux disease) Morbid obesity DVT (deep venous thrombosis) total 3, last DVT ~2014 Factor V deficiency reason for coumadin Narcotic dependence History of gastric bypass ~2007 Medical History Hypoxia Osteoarthritis Hypothyroidism Anemia Depression History of kidney stones no sx. Sleep apnea no device currently Anticoagulated on warfarin Chronic back pain Thrombophlebitis of right saphenous vein hx ~2010 Surgical History History of esophagogastroduodenoscopy (EGD) Nausea and vomiting after administration of anesthetic agent History of dilatation and curettage History of carpal tunnel release rt/left History of colonoscopy History of tooth extraction Family History Other No family history of adverse response to anesthesia Social History Smoking Status: Never smoker Tobacco Type: Cigarettes Second Hand Exposure: No; Do You Dip or Chew Tobacco: No; Hx Alcohol Use: Yes Hx Substance Use: Yes Last Used Substance Other:: former user Preferred Language: Amharic Communication Ability: Impaired Hearing Ability: Normal Resident Service Coordinator Required: No Beliefs That Will Affect Care: None marital status: Single Current Living Situation: Significant Other Current Living Situation Comment: WITH BOYFRIEND current occupational status: disabled Other Information That Helps Us Care for You: No Feels Safe at Home: Declines to Answer Diet: regular caffeine: Yes (coffee) during the past year weight has: remained stable Physical Activity Frequency: Does not Exercise Do you think of yourself as: straight/heterosexual Gender Identity: Female Assistive Devices: Glasses Allergies Allergies Allergy/AdvReac Type Severity Reaction Status Date / Time latex Allergy Intermediate SKIN Verified 12/11/23 08:20 IRRITATION nylon Allergy Mild erythema/pus Verified 12/11/23 08:20 nylon sutures adhesive AdvReac Intermediate skin Verified 12/11/23 08:20 tearing bacitracin AdvReac Mild SKIN Verified 12/11/23 08:20 [From Neosporin INFECTION ([id number])] neomycin AdvReac Mild SKIN Verified 12/11/23 08:20 [From Neosporin INFECTION ([id number])] polymyxin B AdvReac Mild SKIN Verified 12/11/23 08:20 [From Neosporin INFECTION ([id number])] Home Meds Home Medications Medication Instructions Recorded Confirmed bupropion HCl 150 mg tablet,12 hr 150 mg PO UD 04/29/25 04/29/25 sustained-release calcium carbonate 600 mg PO DAILY 04/29/25 04/29/25 cholecalciferol (vitamin D3) 50 50 mcg PO DAILY 04/29/25 04/29/25 mcg (2,000 unit) capsule (Vitamin D3) cyclobenzaprine 5 mg tablet 5 mg PO HS PRN Muscle Spasm 04/29/25 04/29/25 duloxetine 60 mg capsule,delayed 60 mg PO DAILY 04/29/25 04/29/25 release fexofenadine 60 mg-pseudoephedrine 1 tab PO Q12H PRN Allergic Symptoms 04/29/25 04/29/25 ER 120 mg tablet,ext.release,12 hr (Ayde-D 12 Hour) fluticasone propionate 50 2 spray intranasal DAILY 04/29/25 04/29/25 mcg/actuation nasal spray,suspension furosemide 20 mg tablet 20 mg PO DAILY 04/29/25 04/29/25 iron,carbonyl 65 mg-vitamin C 125 1 tab PO DAILY 04/29/25 04/29/25 mg tablet,delayed release (Vitron-C) levothyroxine 88 mcg tablet 88 mcg PO DAILY 04/29/25 04/29/25 omeprazole 20 mg capsule,delayed 40 mg PO DAILY 04/29/25 04/29/25 release oxycodone-acetaminophen 10 mg-325 1 tab PO Q6H PRN Severe Pain 04/29/25 04/29/25 mg tablet (Scale Score 7-10) warfarin 5 mg tablet 5 mg PO UD 04/29/25 04/29/25 Results & Data (ED) Vital Signs Vital Signs - 24 hr 04/29/25 16:16 04/29/25 16:16 04/29/25 16:23 Temperature 39.2 C H Temperature Source Oral Pulse Rate 80 94 H 91 H Pulse Rate [Apical] Pulse Rate from SpO2 Sensor Respiratory Rate 24 21 Respiratory Effort / Characteristics Non-Labored Spontaneous Respiratory Depth Normal Respiratory Pattern Blood Pressure 138/83 Blood Pressure [Right Arm] Blood Pressure Mean 101 Blood Pressure Mean [Right Arm] Blood Pressure Position Semi-fowlers Blood Pressure Position [Right Arm] Pulse Oximetry 97 92 Oxygen Delivery Method Room Air Room Air Oxygen Flow Rate Sepsis Recent Fever Within 48 Hours Yes Sepsis New/Unexplained Change in Mental Status Yes Sepsis Action Taken by Nursing Physician Notified 04/29/25 16:30 04/29/25 16:33 04/29/25 16:41 Temperature Temperature Source Pulse Rate 84 82 Pulse Rate [Apical] Pulse Rate from SpO2 Sensor 83 81 Respiratory Rate 25 H 25 H Respiratory Effort / Characteristics Respiratory Depth Respiratory Pattern Blood Pressure 167/86 H Blood Pressure [Right Arm] Blood Pressure Mean 102 Blood Pressure Mean [Right Arm] Blood Pressure Position Blood Pressure Position [Right Arm] Pulse Oximetry 96 97 Oxygen Delivery Method Oxygen Flow Rate Sepsis Recent Fever Within 48 Hours Sepsis New/Unexplained Change in Mental Status Sepsis Action Taken by Nursing 04/29/25 16:46 04/29/25 16:46 04/29/25 16:46 Temperature Temperature Source Pulse Rate Pulse Rate [Apical] Pulse Rate from SpO2 Sensor Respiratory Rate Respiratory Effort / Characteristics Respiratory Depth Respiratory Pattern Blood Pressure 169/79 H 169/79 H 169/79 H Blood Pressure [Right Arm] Blood Pressure Mean 91 91 91 Blood Pressure Mean [Right Arm] Blood Pressure Position Blood Pressure Position [Right Arm] Pulse Oximetry Oxygen Delivery Method Oxygen Flow Rate Sepsis Recent Fever Within 48 Hours Sepsis New/Unexplained Change in Mental Status Sepsis Action Taken by Nursing 04/29/25 16:49 04/29/25 16:57 04/29/25 17:00 Temperature Temperature Source Pulse Rate 84 Pulse Rate [Apical] 86 Pulse Rate from SpO2 Sensor 83 Respiratory Rate 24 30 H Respiratory Effort / Characteristics Non-Labored Spontaneous Respiratory Depth Normal Respiratory Pattern Regular Blood Pressure 146/101 H Blood Pressure [Right Arm] 169/79 H Blood Pressure Mean 118 Blood Pressure Mean [Right Arm] 109 Blood Pressure Position Blood Pressure Position [Right Arm] Semi-fowlers Pulse Oximetry 96 97 Oxygen Delivery Method Nasal Cannula Oxygen Flow Rate 1 Sepsis Recent Fever Within 48 Hours Sepsis New/Unexplained Change in Mental Status Sepsis Action Taken by Nursing 04/29/25 17:00 04/29/25 17:19 04/29/25 17:21 Temperature 39.3 C H Temperature Source Oral Pulse Rate 89 81 Pulse Rate [Apical] 83 Pulse Rate from SpO2 Sensor 75 78 Respiratory Rate 28 H 26 H 40 H Respiratory Effort / Characteristics Non-Labored Spontaneous Respiratory Depth Normal Respiratory Pattern Regular Blood Pressure Blood Pressure [Right Arm] 143/76 H Blood Pressure Mean Blood Pressure Mean [Right Arm] 98 Blood Pressure Position Blood Pressure Position [Right Arm] Pulse Oximetry 96 96 98 Oxygen Delivery Method Nasal Cannula Oxygen Flow Rate 1 Sepsis Recent Fever Within 48 Hours Sepsis New/Unexplained Change in Mental Status Sepsis Action Taken by Nursing 04/29/25 17:26 04/29/25 17:26 04/29/25 17:30 Temperature Temperature Source Pulse Rate Pulse Rate [Apical] 85 Pulse Rate from SpO2 Sensor Respiratory Rate 24 Respiratory Effort / Characteristics Respiratory Depth Normal Respiratory Pattern Blood Pressure 143/76 H 143/76 H Blood Pressure [Right Arm] 139/62 Blood Pressure Mean 115 115 Blood Pressure Mean [Right Arm] 87 Blood Pressure Position Blood Pressure Position [Right Arm] Lying Pulse Oximetry 97 Oxygen Delivery Method Nasal Cannula Oxygen Flow Rate 1 Sepsis Recent Fever Within 48 Hours Sepsis New/Unexplained Change in Mental Status Sepsis Action Taken by Nursing 04/29/25 17:30 04/29/25 17:30 04/29/25 17:45 Temperature Temperature Source Pulse Rate 81 Pulse Rate [Apical] Pulse Rate from SpO2 Sensor 81 Respiratory Rate 32 H Respiratory Effort / Characteristics Respiratory Depth Respiratory Pattern Blood Pressure 139/62 122/95 Blood Pressure [Right Arm] Blood Pressure Mean 101 102 Blood Pressure Mean [Right Arm] Blood Pressure Position Blood Pressure Position [Right Arm] Pulse Oximetry 97 Oxygen Delivery Method Oxygen Flow Rate Sepsis Recent Fever Within 48 Hours Sepsis New/Unexplained Change in Mental Status Sepsis Action Taken by Nursing 04/29/25 17:45 04/29/25 18:09 04/29/25 18:09 Temperature Temperature Source Pulse Rate 83 Pulse Rate [Apical] Pulse Rate from SpO2 Sensor Respiratory Rate 25 H Respiratory Effort / Characteristics Respiratory Depth Respiratory Pattern Blood Pressure 116/56 L 116/56 L Blood Pressure [Right Arm] Blood Pressure Mean 73 73 Blood Pressure Mean [Right Arm] Blood Pressure Position Blood Pressure Position [Right Arm] Pulse Oximetry Oxygen Delivery Method Oxygen Flow Rate Sepsis Recent Fever Within 48 Hours Sepsis New/Unexplained Change in Mental Status Sepsis Action Taken by Nursing 04/29/25 18:09 04/29/25 18:09 04/29/25 18:09 Temperature Temperature Source Pulse Rate 78 Pulse Rate [Apical] Pulse Rate from SpO2 Sensor 77 Respiratory Rate 21 Respiratory Effort / Characteristics Respiratory Depth Respiratory Pattern Blood Pressure 116/56 L 116/56 L Blood Pressure [Right Arm] Blood Pressure Mean 73 73 Blood Pressure Mean [Right Arm] Blood Pressure Position Blood Pressure Position [Right Arm] Pulse Oximetry 92 Oxygen Delivery Method Oxygen Flow Rate Sepsis Recent Fever Within 48 Hours Sepsis New/Unexplained Change in Mental Status Sepsis Action Taken by Nursing 04/29/25 18:30 04/29/25 18:33 04/29/25 18:57 Temperature Temperature Source Pulse Rate 80 Pulse Rate [Apical] 74 Pulse Rate from SpO2 Sensor 95 H Respiratory Rate 16 18 Respiratory Effort / Characteristics Non-Labored Spontaneous Respiratory Depth Normal Respiratory Pattern Regular Blood Pressure 140/80 Blood Pressure [Right Arm] 140/80 Blood Pressure Mean 103 Blood Pressure Mean [Right Arm] 100 Blood Pressure Position Blood Pressure Position [Right Arm] Lying Pulse Oximetry 94 93 Oxygen Delivery Method Nasal Cannula Nasal Cannula Oxygen Flow Rate 2 2 Sepsis Recent Fever Within 48 Hours Sepsis New/Unexplained Change in Mental Status Sepsis Action Taken by Nursing 04/29/25 19:02 04/29/25 19:02 04/29/25 19:03 Temperature Temperature Source Pulse Rate Pulse Rate [Apical] Pulse Rate from SpO2 Sensor 79 Respiratory Rate Respiratory Effort / Characteristics Respiratory Depth Respiratory Pattern Blood Pressure 123/73 123/73 Blood Pressure [Right Arm] Blood Pressure Mean 92 92 Blood Pressure Mean [Right Arm] Blood Pressure Position Blood Pressure Position [Right Arm] Pulse Oximetry 96 Oxygen Delivery Method Oxygen Flow Rate Sepsis Recent Fever Within 48 Hours Sepsis New/Unexplained Change in Mental Status Sepsis Action Taken by Nursing 04/29/25 19:32 04/29/25 19:45 04/29/25 20:06 Temperature Temperature Source Pulse Rate 75 75 Pulse Rate [Apical] Pulse Rate from SpO2 Sensor 77 76 Respiratory Rate 13 11 L Respiratory Effort / Characteristics Respiratory Depth Respiratory Pattern Blood Pressure 104/46 L 120/89 Blood Pressure [Right Arm] Blood Pressure Mean 70 99 Blood Pressure Mean [Right Arm] Blood Pressure Position Blood Pressure Position [Right Arm] Pulse Oximetry 94 99 Oxygen Delivery Method Nasal Cannula Nasal Cannula Oxygen Flow Rate 2 2 Sepsis Recent Fever Within 48 Hours Sepsis New/Unexplained Change in Mental Status Sepsis Action Taken by Nursing 04/29/25 20:12 04/29/25 20:19 04/29/25 20:27 Temperature Temperature Source Pulse Rate 75 Pulse Rate [Apical] Pulse Rate from SpO2 Sensor 76 74 Respiratory Rate 27 H Respiratory Effort / Characteristics Respiratory Depth Respiratory Pattern Blood Pressure 136/82 Blood Pressure [Right Arm] Blood Pressure Mean 105 Blood Pressure Mean [Right Arm] Blood Pressure Position Blood Pressure Position [Right Arm] Pulse Oximetry 98 97 Oxygen Delivery Method Oxygen Flow Rate Sepsis Recent Fever Within 48 Hours Sepsis New/Unexplained Change in Mental Status Sepsis Action Taken by Nursing 04/29/25 20:30 04/29/25 20:33 04/29/25 20:45 Temperature Temperature Source Pulse Rate 75 Pulse Rate [Apical] Pulse Rate from SpO2 Sensor Respiratory Rate Respiratory Effort / Characteristics Respiratory Depth Respiratory Pattern Blood Pressure 123/81 117/81 Blood Pressure [Right Arm] Blood Pressure Mean 87 94 Blood Pressure Mean [Right Arm] Blood Pressure Position Blood Pressure Position [Right Arm] Pulse Oximetry Oxygen Delivery Method Oxygen Flow Rate Sepsis Recent Fever Within 48 Hours Sepsis New/Unexplained Change in Mental Status Sepsis Action Taken by Nursing Laboratory Data 04/30/25 07:29 04/30/25 07:29 Lab Results 04/29/25 04/29/25 Range/Units 16:32 19:22 WBC 13.36 H (4.8-10.8) K/ul RBC 4.23 (4.20-5.40) M/uL Hgb 12.7 (12.0-16.0) g/dl Hct 38.6 (37.0-47.0) % MCV 91.3 (80.0-100.0) fL MCH 30.0 (25.0-34.0) pg MCHC 32.9 (32.0-36.0) g/dL RDW Std Deviation 48.1 H (36.4-46.3) fL RDW Coeff of Deandre 14.4 (11.5-14.5) % Plt Count 160 (130-400) K/uL MPV 9.9 (9.4-12.4) fL Immature Gran % (Auto) 1.1 % Neut % (Auto) 89.9 % Lymph % (Auto) 3.7 % [place] % (Auto) 5.2 % Eos % (Auto) 0.0 % Baso % (Auto) 0.1 % Neut # (Auto) 12.01 H (1.40-6.50) K/uL Lymph # (Auto) 0.49 L (1.20-3.40) K/uL [place] # (Auto) 0.70 H (0.11-0.59) K/uL Eos # (Auto) 0.00 (0.00-0.50) K/uL Baso # (Auto) 0.01 (0.00-0.20) K/uL Immature Gran # (Auto) 0.15 (0.01-0.20) K/uL PT 20.6 H (9.0-12.0) Seconds INR 2.0 H (0.9-1.1) Sodium 136 (136-145) mmol/L Potassium 3.8 (3.5-5.1) mmol/L Chloride 102 (98-107) mmol/L Carbon Dioxide 28 (21-32) mmol/L Anion Gap 6 (3-11) BUN 14 (6-23) mg/dl Creatinine 1.21 H (0.6-1.2) mg/dl Est Cr Clr Drug Dosing 92.1 ml/min eGFR 52.27 BUN/Creatinine Ratio 11.6 (10-20) Glucose 112 H (70-99(Fasting)) mg/dl Lactate 0.9 (0.4-2.0) mmol/L Calcium 8.7 (8.6-10.3) mg/dl Magnesium 1.5 L (1.7-2.4) mg/dl Total Bilirubin 0.7 (0.2-1.0) mg/dl Direct Bilirubin 0.2 (0-0.2) mg/dl AST 31 (13-39) U/L ALT 12 (7-52) U/L Alkaline Phosphatase 61 (34-104) U/L Total Creatine Kinase 63 (26-192) U/L Troponin I High Sens 73.7 H* (0-14) pg/ml Total Protein 6.8 (6.0-8.3) gm/dl Albumin 3.1 L (3.4-5.0) gm/dl Procalcitonin 3.52 H (0-0.5) ng/ml Urine Color See Comment Urine Appearance Cloudy A (Clear) Urine pH Not Reportable Ur Specific [place] 1.020 (1.000-1.030) Urine Protein Not Reportable Urine Glucose (UA) Not Reportable Urine Ketones Not Reportable Urine Blood Not Reportable Urine Nitrite Not Reportable Urine Bilirubin Not Reportable Urine Urobilinogen Not Reportable Ur Leukocyte Esterase Not Reportable Urine RBC >20 H (0-2) /hpf Urine WBC 21-50 H (0-5) /hpf Ur Epithelial Cells 11-20 H (0-2) /hpf Urine Bacteria 1+ H (None Seen) Granular Casts P (None Prsent) /lpf Urine Comment Administered Medications Bupropion HCl (Bupropion Sr 150 Mg Tabcr) 300 mg PO DAILY [facility] Stop: 05/30/25 08:59 Last Admin: 04/30/25 09:19 Dose: 300 mg Documented By: TERESA Calcium Carbonate (Calcium Carbonate 1250mg Tab) 1 tab PO DAILY MICHELLE Stop: 05/30/25 08:59 Last Admin: 04/30/25 09:18 Dose: 1 tab Documented By: TERESA Duloxetine HCl (Duloxetine Hcl 60 Mg Cap) 60 mg PO DAILY MICHELLE Stop: 05/30/25 08:59 Last Admin: 04/30/25 09:18 Dose: 60 mg Documented By: TERESA Fluticasone Propionate (Fluticasone Propionate Na Spr 16 Gm Btl) 2 sprays NA DAILY MICHELLE Stop: 05/30/25 08:59 Last Admin: 04/30/25 09:18 Dose: 2 sprays Documented By: TERESA Furosemide (Furosemide 20 Mg Tab) 20 mg PO DAILY MICHELLE Stop: 05/30/25 08:59 Last Admin: 04/30/25 09:18 Dose: 20 mg Documented By: TERESA Daptomycin 850 mg/ Syringe 17 mls @ 8.5 mls/min IV Q24H MICHELLE; Protocol Stop: 05/06/25 20:59 Last Admin: 04/29/25 21:39 Dose: 8.5 mls/min Documented By: ROHITH Cefepime HCl (Maxipime 2000mg) 2,000 mg in 20 mls @ 5 mls/min IV Q8H MICHELLE; Protocol Stop: 05/07/25 00:00 Last Admin: 04/30/25 09:17 Dose: 5 mls/min Documented By: Admin: 04/30/25 00:29 Dose: Not Given Documented By: NRS Acetaminophen (Ofirmev) 1,000 mg in 100 mls @ 400 mls/hr IV Q8H PRN PRN Reason: Pain or Fever Stop: 05/02/25 22:25 Last Infusion: 04/30/25 10:26 Dose: Infused Documented By: Admin: 04/30/25 08:01 Dose: 400 mls/hr Documented By: TERESA Doxycycline Hyclate 100 mg/ (Dextrose) 100 mls @ 50 mls/hr IV Q12H [facility] Stop: 05/04/25 22:59 Last Admin: 04/30/25 11:57 Dose: 50 mls/hr Documented By: Admin: 04/30/25 00:29 Dose: Not Given Documented By: SATISH Lactated Ringer's (Lr) 1,000 mls @ 80 mls/hr IV .[id number] [facility] Stop: 05/03/25 10:59 Last Admin: 04/30/25 11:57 Dose: 80 mls/hr Documented By: TERESA Levothyroxine Sodium (Levothyroxine Sodium 88 Mcg Tablet) 88 mcg PO DAILYBB [facility] Stop: 05/30/25 06:29 Last Admin: 04/30/25 06:44 Dose: Not Given Documented By: SATISH Pantoprazole Sodium (Pantoprazole 40 Mg Tab) 40 mg PO DAILY MICHELLE Stop: 05/30/25 08:59 Last Admin: 04/30/25 09:18 Dose: 40 mg Documented By: TERESA Vitamin D (Cholecalciferol 25 Mcg (1000 Units) Tab) 50 mcg PO DAILY MICHELLE Stop: 05/30/25 08:59 Last Admin: 04/30/25 09:18 Dose: 50 mcg Documented By: TERESA Discontinued Medications Aspirin (Aspirin Chew 324 Mg) 324 mg PO NOW STA Stop: 04/29/25 17:47 Last Admin: 04/29/25 21:00 Dose: Not Given Documented By: CHAD Sodium Chloride (Nss) 1,000 mls @ 999 mls/hr IV .Q1H1M MICHELLE Stop: 04/29/25 17:30 Last Infusion: 04/29/25 17:29 Dose: Infused Documented By: Admin: 04/29/25 16:44 Dose: 999 mls/hr Documented By: RUDDY Cefepime HCl (Maxipime 2000mg) 2,000 mg in 20 mls @ 5 mls/min IV NOW STA; Protocol Stop: 04/29/25 16:21 Last Admin: 04/29/25 17:26 Dose: 5 mls/min Documented By: RUDDY Acetaminophen (Ofirmev) 1,000 mg in 100 mls @ 400 mls/hr IV NOW STA Stop: 04/29/25 16:32 Last Infusion: 04/29/25 17:00 Dose: Infused Documented By: Admin: 04/29/25 16:56 Dose: 400 mls/hr Documented By: RUDDY Parenteral Electrolytes (Plasma-Lyte A Ph 7.4) 1,000 mls @ 999 mls/hr IV .Q1H1M ONE Stop: 04/29/25 20:22 Last Infusion: 04/29/25 20:59 Dose: Infused Documented By: Admin: 04/29/25 19:35 Dose: 999 mls/hr Documented By: STEPHANE Magnesium Sulfate/Dextrose (Magnesium Sulfate / D5w) 1 gm in 100 mls @ 100 mls/hr IV Q1H MICHELLE Stop: 04/29/25 21:30 Last Infusion: 04/29/25 22:27 Dose: Infused Documented By: Admin: 04/29/25 21:07 Dose: 100 mls/hr Documented By: Infusion: 04/29/25 20:58 Dose: Infused Documented By: Admin: 04/29/25 19:44 Dose: 100 mls/hr Documented By: STEPHANE Sodium Chloride (Nss) 1,000 mls @ 125 mls/hr IV .Q8H MICHELLE Stop: 05/02/25 22:25 Last Admin: 04/30/25 12:37 Dose: Not Given Documented By: Infusion: 04/30/25 12:36 Dose: Infused Documented By: Infusion: 04/30/25 08:06 Dose: 125 mls/hr Documented By: Infusion: 04/30/25 00:29 Dose: 0 mls/hr Documented By: Admin: 04/29/25 23:16 Dose: 125 mls/hr Documented By: NRS Imaging Data Radiologist's Impression: Chest X-Ray 04/29/25 16:19 Chest radiograph, one view History: Sepsis Comparison: February 20, 2025 Findings: Single AP view of the chest performed. Perihilar opacities. Blunted left costophrenic angle is seen, with a small pleural effusion not excluded. No pneumothorax. The cardiomediastinal silhouette is within normal limits. Indistinct pulmonary vascularity. No evidence for lymphadenopathy. No visualized bony or soft tissue abnormality. Impression: Bilateral perihilar opacity with indistinct pulmonary vasculature suggesting pulmonary edema. Underlying infection also is not excluded. Electronically signed by Stanford Layton 04-29-2025 6:34 PM Discharge Plan Visit Data Chief Complaint: Leg Injury/Pain ED Provider: Bruno Adame Discharge Problem: Sepsis, Encephalopathy acute, Cellulitis, Hypomagnesemia, KASHIF (acute kidney injury), Acute non-ST elevation myocardial infarction (NSTEMI) Patient Disposition: Admitted As Inpatient Condition: Serious Discharge Instructions Interventions: ED Discharge Assessment Last Done: 04/29/25 22:24
[2025-04-29] MEDS: ACETAMINOPHEN 1,000 MG/100 ML VIAL IV STA (16:56)
[2025-04-29 17:09] LABS: Hematocrit (blood only) 38.6 % (37.0-47.0); Hemoglobin 12.7 g/dl (12.0-16.0); Immature Granulocytes # (auto) 0.15 K/uL (0.01-0.20); Immature Granulocytes % (auto) 1.1 %; Mean Corpuscular Hemoglobin 30.0 pg (25.0-34.0); Mean Corpuscular Volume 91.3 fL (80.0-100.0); Platelet Count 160 K/uL (130-400); RDW Standard Deviation 48.1 fL (36.4-46.3); Red Blood Count 4.23 M/uL (4.20-5.40); White Blood Count 13.36 K/ul (4.8-10.8)
[2025-04-29] MEDS: CEFEPIME 2000MG 2,000 MG/20 ML SYR IV STA (17:26)
[2025-04-29 17:29] LABS: Alanine Aminotransferase 12.0 U/L (7-52); Alkaline Phosphatase 61.0 U/L (34-104); Anion Gap 6.0 (3-11); Bilirubin,Total 0.7 mg/dl (0.2-1.0); Blood Urea Nitrogen 14.0 mg/dl (6-23); Calcium 8.7 mg/dl (8.6-10.3); Carbon Dioxide 28.0 mmol/L (21-32); Chloride 102.0 mmol/L (98-107); Creatinine Clr Calc Pharmacy 92.1 ml/min; Glucose 112.0 mg/dl (70-99(Fasting)); Magnesium 1.5 mg/dl (1.7-2.4); Potassium 3.8 mmol/L (3.5-5.1); Sodium 136.0 mmol/L (136-145); Total Protein 6.8 gm/dl (6.0-8.3)
--- NOTE | 2025-04-29 18:35 | XRay Report ---
Chest radiograph, one view History: Sepsis Comparison: February 20, 2025 Findings: Single AP view of the chest performed. Perihilar opacities. Blunted left costophrenic angle is seen, with a small pleural effusion not excluded. No pneumothorax. The cardiomediastinal silhouette is within normal limits. Indistinct pulmonary vascularity. No evidence for lymphadenopathy. No visualized bony or soft tissue abnormality. Impression: Bilateral perihilar opacity with indistinct pulmonary vasculature suggesting pulmonary edema. Underlying infection also is not excluded. Electronically signed by Stanford Layton 04-29-2025 6:34 PM
[2025-04-29] MEDS: PLASMA-LYTE A 1,000 ML IV ONE (19:35)
[2025-04-29 19:44] LABS: Creatine Kinase 63.0 U/L (26-192)
[2025-04-29] MEDS: MAGNESIUM SULFATE / D5W 1 GM/100 ML BAG IV SCH (19:44)
[2025-04-29 19:52] LABS: Appearance Urine Cloudy (Clear)
[2025-04-29] MEDS ORDERED: VANCOMYCIN CONSULT ACTIVE PRN (20:50)
[2025-04-29] MEDS: ASPIRIN CHEW 324 MG PO STA (21:00)
[2025-04-29] MEDS ORDERED: VANCOMYCIN HCL 1,000 MG/270 ML BAG IV SCH (21:00)
--- NOTE | 2025-04-29 21:08 | History & Physical Report ---
Date of Service April 29, 2025 Assessment & Plan (1) Sepsis: Plan: 55-year-old female with past medical history significant for heterozygous MTHFR mutation, factor V Leiden mutation heterozygous, history of DVT, history of thrombophlebitis, on Coumadin, hypothyroidism, obstructive sleep apnea not using CPAP or oxygen as per significant other, hypertension, chronic pain syndrome, history of kidney stones, history of major depression with severe psychotic features who lives at home with her significant other was brought in because of weakness and found to be confused and right lower leg cellulitis. Patient could tell her name. She is lying in the bed headdown. When asked where she is, she says do not know. Denies any headache. Denies chest pain. Denies shortness of breath. Denies cough. Denies nausea. Denies abdominal pain. Could not get much history from the patient. Patient is somewhat noncooperative. Called significant other. Significant other states patient went to sleep last night 7:30 PM and today morning she did not got up at her usual time. He got worried. It took couple of hours to bring her down. Seems able to ambulate okay. As per significant other no cough. No nausea /vomiting or diarrhea as per significant other. Yesterday she was doing okay as per significant other. Patient had similar admission February 2025 ,was treated for right lower EXTR cellulitis and possible pneumonia and she improved and was discharged on Augmentin and doxycycline. Sepsis. Right lower extremity cellulitis Possible pneumonia on chest x-ray Metabolic encephalopathy Has leukocytosis and temp spike .lactate is okay at 0.9. Procalcitonin 3.5 Urine drug screen negative Patient refused CT scan If possible possible to get CT head and CT chest Empiric cefepime, Dapto and doxycycline IV fluids Monitor for response Close monitoring telemetry Pulm congestion questionable On chest x-ray Close monitor Echo normal EF on last admission Obstructive sleep apnea Does not use CPAP or oxygen as per significant other Will follow VBG Elevated troponin Initial troponin 73 Mostly demand ischemia We will follow serial enzymes Hypothyroidism On Synthyroid Chronic pain syndrome Hold home narcotic pain medications History of DVT MTHFR mutation Factor V Leyden mutation On Coumadin Will follow PT/INR GERD On omeprazole Depression on Wellbutrin on duloxetine Lower extremity edema Continue home Lasix 20 milligrams daily DVT prophylaxis INR therapeutic Follow PT/INR Disposition Telemetry Full code. Addendum: refusing treatment. Consulted Psychiatry History of Present Illness Chief Complaint: Sepsis, cellulitis Primary Care Provider: Krzysztof Pickering MD 55-year-old female with past medical history significant for heterozygous MTHFR mutation, factor V Leiden mutation heterozygous, history of DVT, history of thrombophlebitis, on Coumadin, hypothyroidism, obstructive sleep apnea not using CPAP or oxygen as per significant other, hypertension, chronic pain syndrome, history of kidney stones, history of major depression with severe psychotic features who lives at home with her significant other was brought in because of weakness and found to be confused and right lower leg cellulitis. Patient could tell her name. She is lying in the bed headdown. When asked where she is, she says do not know. Denies any headache. Denies chest pain. Denies shortness of breath. Denies cough. Denies nausea. Denies abdominal pain. Could not get much history from the patient. Patient is somewhat noncooperative. Called significant other. Significant other states patient went to sleep last night 7:30 PM and today morning she did not got up at her usual time. He got worried. It took couple of hours to bring her down. Seems able to ambulate okay. As per significant other no cough. No nausea /vomiting or diarrhea as per significant other. Yesterday she was doing okay as per significant other. Patient had similar admission February 2025 ,was treated for right lower EXTR cellulitis and possible pneumonia and she improved and was discharged on Augmentin and doxycycline. Past medical history. As mentioned above. Past surgical history. Bilateral carpal tunnel surgery. Colonoscopy. Dilatation curettage for irregular bleeding. EGD. IR aspiration of abscess 04/16/2021. Laparoscopic procedure of liver. Jaw surgery for fitting of partial dentures. Laparoscopic sleeve gastrectomy in 2014. Social history. Quit smoking 2000. Smoked 0.5 pack a day for 2 years. No alcohol use. No drug use. Family history. Maternal aunt had breast cancer. Cousin had breast cancer. Mother had diabetes. Blocked bowel. Hypertension. Thyroid disorder. Father had heart disorder. Paternal grandfather had heart disorder. For discharge Allergies Allergy/AdvReac Type Severity Reaction Status Date / Time latex Allergy Intermediate SKIN Verified 12/11/23 08:20 IRRITATION nylon Allergy Mild erythema/pus Verified 12/11/23 08:20 nylon sutures adhesive AdvReac Intermediate skin Verified 12/11/23 08:20 tearing bacitracin AdvReac Mild SKIN Verified 12/11/23 08:20 [From Neosporin INFECTION ([id number])] neomycin AdvReac Mild SKIN Verified 12/11/23 08:20 [From Neosporin INFECTION ([id number])] polymyxin B AdvReac Mild SKIN Verified 12/11/23 08:20 [From Neosporin INFECTION ([id number])] Home Medications Medication Instructions Recorded Confirmed Type bupropion HCl 150 mg tablet,12 hr 150 mg PO UD 04/29/25 04/29/25 History sustained-release calcium carbonate 600 mg PO DAILY 04/29/25 04/29/25 History cholecalciferol (vitamin D3) 50 50 mcg PO DAILY 04/29/25 04/29/25 History mcg (2,000 unit) capsule (Vitamin D3) cyclobenzaprine 5 mg tablet 5 mg PO HS PRN Muscle Spasm 04/29/25 04/29/25 History duloxetine 60 mg capsule,delayed 60 mg PO DAILY 04/29/25 04/29/25 History release fexofenadine 60 mg-pseudoephedrine 1 tab PO Q12H PRN Allergic Symptoms 04/29/25 04/29/25 History ER 120 mg tablet,ext.release,12 hr (Ayde-D 12 Hour) fluticasone propionate 50 2 spray intranasal DAILY 04/29/25 04/29/25 History mcg/actuation nasal spray,suspension furosemide 20 mg tablet 20 mg PO DAILY 04/29/25 04/29/25 History iron,carbonyl 65 mg-vitamin C 125 1 tab PO DAILY 04/29/25 04/29/25 History mg tablet,delayed release (Vitron-C) levothyroxine 88 mcg tablet 88 mcg PO DAILY 04/29/25 04/29/25 History omeprazole 20 mg capsule,delayed 40 mg PO DAILY 04/29/25 04/29/25 History release oxycodone-acetaminophen 10 mg-325 1 tab PO Q6H PRN Severe Pain 04/29/25 04/29/25 History mg tablet (Scale Score 7-10) warfarin 5 mg tablet 5 mg PO UD 04/29/25 04/29/25 History Past Med/Surg History Problem List (Updated 03/26/25 @ 00:08 by Background Daemon) Sepsis (Acute) Bilateral cellulitis of lower leg (Acute) Encounter for pre-operative examination UTI (urinary tract infection) Small bowel obstruction Partial small bowel obstruction (Acute) Venous stasis ulcer (Acute) Supratherapeutic INR Iron deficiency anemia Leukocytosis (Acute) Pneumonia (Acute) Cellulitis of leg, right (Acute) Hypothyroidism MDD (major depressive disorder) Hypokalemia Acute encephalopathy SIRS (systemic inflammatory response syndrome) (Acute) Fever (Acute) GERD (gastroesophageal reflux disease) Morbid obesity DVT (deep venous thrombosis) total 3, last DVT ~2014 Factor V deficiency reason for coumadin Narcotic dependence History of gastric bypass ~2007 Medical History Osteoarthritis Hypothyroidism Anemia Depression History of kidney stones no sx. Sleep apnea no device currently Anticoagulated on warfarin Narcotic dependence Chronic back pain GERD (gastroesophageal reflux disease) Factor V deficiency reason for coumadin DVT (deep venous thrombosis) total 3, last DVT ~2014 Morbid obesity Thrombophlebitis of right saphenous vein hx ~2010 Surgical History History of esophagogastroduodenoscopy (EGD) Nausea and vomiting after administration of anesthetic agent History of dilatation and curettage History of carpal tunnel release rt/left History of colonoscopy History of tooth extraction History of gastric bypass ~2007 Family History Other No family history of adverse response to anesthesia Social History Smoking Status: Never smoker Tobacco Type: Cigarettes Second Hand Exposure: No; Do You Dip or Chew Tobacco: No; Hx Alcohol Use: Yes Hx Substance Use: Yes Last Used Substance Other:: former user Preferred Language: Citizen Of [place] Communication Ability: Impaired Hearing Ability: Normal Airline Reservation Agent Required: No Beliefs That Will Affect Care: None marital status: Single Current Living Situation: Significant Other Current Living Situation Comment: WITH BOYFRIEND current occupational status: disabled Other Information That Helps Us Care for You: No Feels Safe at Home: Declines to Answer Diet: regular caffeine: Yes (coffee) during the past year weight has: remained stable Physical Activity Frequency: Does not Exercise Do you think of yourself as: straight/heterosexual Gender Identity: Female Assistive Devices: Glasses Review of Systems Review of Systems: Other confused? Physical Exam Physical Exam: General- Sleepy Head- atraumatic Lungs- clear to auscultation no wheezing or crackles. Heart- regular rhythm; no gallop, Abdomen- normal bowel sounds, soft, nontender, no distension Extremities- b/l lower extremity chronic edema and skin changes seen. Right leg is erythematous and warm on palpation Neuro- Drowsy. oriented to name. no facial palsy; no dysarthria; moves extremities Results & Data Results & Data Vital Signs (Past 12 Hours) Vital Signs Temp Pulse Pulse Resp BP BP Pulse Ox 04/29/25 20:33 75 04/29/25 20:06 75 11 L 99 04/29/25 19:45 75 13 120/89 94 04/29/25 19:32 104/46 L 04/29/25 19:03 96 04/29/25 19:02 123/73 04/29/25 19:02 123/73 04/29/25 18:57 80 18 93 04/29/25 18:33 74 16 140/80 94 04/29/25 18:30 140/80 04/29/25 18:09 78 21 92 04/29/25 18:09 116/56 L 04/29/25 18:09 116/56 L 04/29/25 18:09 116/56 L 04/29/25 18:09 116/56 L 04/29/25 17:45 83 25 H 04/29/25 17:45 122/95 04/29/25 17:30 139/62 04/29/25 17:30 81 32 H 97 04/29/25 17:30 85 24 139/62 97 04/29/25 17:26 143/76 H 04/29/25 17:26 143/76 H 04/29/25 17:21 81 40 H 98 04/29/25 17:19 39.3 C H 83 26 H 143/76 H 96 04/29/25 17:00 89 28 H 96 04/29/25 17:00 146/101 H 04/29/25 16:57 84 30 H 97 04/29/25 16:49 86 24 169/79 H 96 04/29/25 16:46 169/79 H 04/29/25 16:46 169/79 H 04/29/25 16:46 169/79 H 04/29/25 16:41 167/86 H 04/29/25 16:33 82 25 H 97 04/29/25 16:30 84 25 H 96 04/29/25 16:23 91 H 04/29/25 16:16 94 H 21 92 04/29/25 16:16 39.2 C H 80 24 138/83 97 O2 Del Method O2 Flow Rate 04/29/25 20:33 04/29/25 20:06 Nasal Cannula 2 04/29/25 19:45 Nasal Cannula 2 04/29/25 19:32 04/29/25 19:03 04/29/25 19:02 04/29/25 19:02 04/29/25 18:57 Nasal Cannula 2 04/29/25 18:33 Nasal Cannula 2 04/29/25 18:30 04/29/25 18:09 04/29/25 18:09 04/29/25 18:09 04/29/25 18:09 04/29/25 18:09 04/29/25 17:45 04/29/25 17:45 04/29/25 17:30 04/29/25 17:30 04/29/25 17:30 Nasal Cannula 1 04/29/25 17:26 04/29/25 17:26 04/29/25 17:21 04/29/25 17:19 Nasal Cannula 1 04/29/25 17:00 04/29/25 17:00 04/29/25 16:57 04/29/25 16:49 Nasal Cannula 1 04/29/25 16:46 04/29/25 16:46 04/29/25 16:46 04/29/25 16:41 04/29/25 16:33 04/29/25 16:30 04/29/25 16:23 04/29/25 16:16 Room Air 04/29/25 16:16 Room Air Diagnostic Findings Laboratory Results WBC 13.36 K/ul (4.8-10.8) H 04/29/25 16:32 RBC 4.23 M/uL (4.20-5.40) 04/29/25 16:32 Hgb 12.7 g/dl (12.0-16.0) 04/29/25 16:32 Hct 38.6 % (37.0-47.0) 04/29/25 16:32 MCV 91.3 fL (80.0-100.0) 04/29/25 16: MCH 30.0 pg (25.0-34.0) 04/29/25 16:32 MCHC 32.9 g/dL (32.0-36.0) 04/29/25 16:32 RDW Std Deviation 48.1 fL (36.4-46.3) H 04/29/25 16: RDW Coeff of Deandre 14.4 % (11.5-14.5) 04/29/25 16:32 Plt Count 160 K/uL (130-400) 04/29/25 16: MPV 9.9 fL (9.4-12.4) 04/29/25 16:32 Immature Gran % (Auto) 1.1 % 04/29/25 16:32 Neut % (Auto) 89.9 % 04/29/25 16:32 Lymph % (Auto) 3.7 % 04/29/25 16:32 [place] % (Auto) 5.2 % 04/29/25 16:32 Eos % (Auto) 0.0 % 04/29/25 16:32 Baso % (Auto) 0.1 % 04/29/25 16:32 Neut # (Auto) 12.01 K/uL (1.40-6.50) H 04/29/25 16:32 Lymph # (Auto) 0.49 K/uL (1.20-3.40) L 04/29/25 16:32 [place] # (Auto) 0.70 K/uL (0.11-0.59) H 04/29/25 16:32 Eos # (Auto) 0.00 K/uL (0.00-0.50) 04/29/25 16:32 Baso # (Auto) 0.01 K/uL (0.00-0.20) 04/29/25 16:32 Immature Gran # (Auto) 0.15 K/uL (0.01-0.20) 04/29/25 16:32 Sodium 136 mmol/L (136-145) 04/29/25 16:32 Potassium 3.8 mmol/L (3.5-5.1) 04/29/25 16:32 Chloride 102 mmol/L (98-107) 04/29/25 16:32 Carbon Dioxide 28 mmol/L (21-32) 04/29/25 16:32 Anion Gap 6 (3-11) 04/29/25 16:32 BUN 14 mg/dl (6-23) 04/29/25 16:32 Creatinine 1.21 mg/dl (0.6-1.2) H 04/29/25 16:32 Est Cr Clr Drug Dosing 92.1 ml/min 04/29/25 16:32 eGFR 52.27 04/29/25 16:32 BUN/Creatinine Ratio 11.6 (10-20) 04/29/25 16:32 Glucose 112 mg/dl (70-99(Fasting)) H 04/29/25 16:32 Lactate 0.9 mmol/L (0.4-2.0) 04/29/25 16:32 Calcium 8.7 mg/dl (8.6-10.3) 04/29/25 16:32 Magnesium 1.5 mg/dl (1.7-2.4) L 04/29/25 16:32 Total Bilirubin 0.7 mg/dl (0.2-1.0) 04/29/25 16:32 Direct Bilirubin 0.2 mg/dl (0-0.2) 04/29/25 16:32 AST 31 U/L (13-39) 04/29/25 16:32 ALT 12 U/L (7-52) 04/29/25 16:32 Alkaline Phosphatase 61 U/L (34-104) 04/29/25 16:32 Total Creatine Kinase 63 U/L (26-192) 04/29/25 16:32 Troponin I High Sens 73.7 pg/ml (0-14) H* 04/29/25 16:32 Total Protein 6.8 gm/dl (6.0-8.3) 04/29/25 16:32 Albumin 3.1 gm/dl (3.4-5.0) L 04/29/25 16:32 Procalcitonin 3.52 ng/ml (0-0.5) H 04/29/25 16:32 Urine Color See Comment 04/29/25 19:22 Urine Appearance Cloudy (Clear) A 04/29/25 19:22 Urine pH Not Reportable 04/29/25 19:22 Ur Specific [place] 1.020 (1.000-1.030) 04/29/25 19:22 Urine Protein Not Reportable 04/29/25 19:22 Urine Glucose (UA) Not Reportable 04/29/25 19:22 Urine Ketones Not Reportable 04/29/25 19:22 Urine Blood Not Reportable 04/29/25 19:22 Urine Nitrite Not Reportable 04/29/25 19:22 Urine Bilirubin Not Reportable 04/29/25 19:22 Urine Urobilinogen Not Reportable 04/29/25 19:22 Ur Leukocyte Esterase Not Reportable 04/29/25 19:22 Urine RBC >20 /hpf (0-2) H 04/29/25 19:22 Urine WBC 21-50 /hpf (0-5) H 04/29/25 19:22 Ur Epithelial Cells 11-20 /hpf (0-2) H 04/29/25 19:22 Urine Bacteria 1+ (None Seen) H 04/29/25 19:22 Granular Casts P /lpf (None Prsent) 04/29/25 19:22 Urine Comment 04/29/25 19:22 Impressions Chest X-Ray 04/29/25 16:19 Chest radiograph, one view History: Sepsis Comparison: February 20, 2025 Findings: Single AP view of the chest performed. Perihilar opacities. Blunted left costophrenic angle is seen, with a small pleural effusion not excluded. No pneumothorax. The cardiomediastinal silhouette is within normal limits. Indistinct pulmonary vascularity. No evidence for lymphadenopathy. No visualized bony or soft tissue abnormality. Impression: Bilateral perihilar opacity with indistinct pulmonary vasculature suggesting pulmonary edema. Underlying infection also is not excluded. Electronically signed by Stanford Layton 04-29-2025 6:34 PM ECG Additional Comments: ECG. Normal sinus rhythm rate of 85. No significant change was found. Code Status & VTE Plan VTE Prophylaxis Plan VTE Prophylaxis will be ordered: Yes
[2025-04-29] MEDS: DAPTOmycin 850 MG in SYRINGE 0 ML IV SCH (21:39)
[2025-04-29] MEDS ORDERED: NITROGLYCERIN SL 0.4 MG/TAB TAB SL PRN (22:26)
[2025-04-29] MEDS ORDERED: POLYETHYLENE (MIRALAX) 17 GM PACK PO PRN (22:26)
[2025-04-29 23:47] LABS: INR 2.0 (0.9-1.1); Prothrombin Time 20.6 Seconds (9.0-12.0)
[2025-04-29] MEDS: DOXYCYCLINE HYCLATE 100 MG in DEXTROSE 5% MINI-B 100 ML IV SCH (23:59)
[2025-04-30] MEDS: CEFEPIME 2000MG 2,000 MG/20 ML SYR IV SCH
[2025-04-30] MEDS: LEVOTHYROXINE SODIUM 88 MCG TABLET PO SCH (06:44)
[2025-04-30 07:47] LABS: Base Excess VBG 3.5 mEq/L; HCO3 VBG 29 mmol/L; Hematocrit (blood only) 35.6 % (37.0-47.0); Hemoglobin 11.8 g/dl (12.0-16.0); Immature Granulocytes # (auto) 0.04 K/uL (0.01-0.20); Immature Granulocytes % (auto) 0.4 %; Mean Corpuscular Hemoglobin 29.9 pg (25.0-34.0); Mean Corpuscular Volume 90.1 fL (80.0-100.0); Oxygen Saturation VBG 88.6 %; PCO2 VBG 44 mmHg (38-50); PO2 VBG 55 mmHg; Platelet Count 131 K/uL (130-400); RDW Standard Deviation 47.7 fL (36.4-46.3); Red Blood Count 3.95 M/uL (4.20-5.40); White Blood Count 10.28 K/ul (4.8-10.8); pH VBG 7.42 (7.36-7.41)
[2025-04-30] MEDS: ACETAMINOPHEN 1,000 MG/100 ML VIAL IV PRN (08:01)
[2025-04-30 08:03] LABS: Anion Gap 5.0 (3-11); Blood Urea Nitrogen 21.0 mg/dl (6-23); Calcium 8.2 mg/dl (8.6-10.3); Carbon Dioxide 30.0 mmol/L (21-32); Chloride 103.0 mmol/L (98-107); Creatinine Clr Calc Pharmacy 65.0 ml/min; Glucose 103.0 mg/dl (70-99(Fasting)); Magnesium 1.9 mg/dl (1.7-2.4); Potassium 3.6 mmol/L (3.5-5.1); Sodium 138.0 mmol/L (136-145)
[2025-04-30 08:21] LABS: INR 1.9 (0.9-1.1); Prothrombin Time 19.8 Seconds (9.0-12.0)
[2025-04-30] MEDS ORDERED: NON-FORMULARY MEDICATION (Iron,Carbonyl-Vitamin C [Vitron-C] 65 mg iron- 125 mg Tablet,Del PO SCH (09:00)
[2025-04-30] MEDS: CHOLECALCIFEROL 25 MCG (1000 UNITS) TAB PO SCH (09:18)
[2025-04-30] MEDS: CALCIUM CARBONATE 1250MG TAB PO SCH (09:18)
[2025-04-30] MEDS: FLUTICASONE PROPIONATE NA SPR 16 GM BTL SCH (09:18)
[2025-04-30] MEDS: FUROSEMIDE 20 MG TAB PO SCH (09:18)
--- NOTE | 2025-04-30 10:32 | Hospitalist Progress Note ---
Date of Service April 30, 2025 Assessment & Plan (1) Depression: (2) Sleep apnea: (3) Hypothyroidism: (4) DVT (deep venous thrombosis): (5) Factor V deficiency: (6) History of gastric bypass: (7) Sepsis: (8) Bilateral cellulitis of lower leg: Plan The patient is a 55-year-old female who presented to the ED on 04/29/2025 with complaints of weakness, confusion and left leg cellulitis. Patient had a similar admission in February 2025 for right lower extremity cellulitis and possible pneumonia. She was discharged on Augmentin and doxycycline with improvement at that time. Sepsis Metabolic encephalopathy Possible community-acquired pneumonia: Left lower extremity cellulitis Leukocytosis, fevers, elevated procalcitonin all indicative of sepsis Confusion likely secondary to infection, chest x-ray with possible pneumonia Continue cefepime/Dapto/Doxy, leukocytosis improving - on 2L - wean as able, no hypoxia noted. Head/chest/abdominal CT ordered, expect mentation to slowly improve AKIlikely prerenal Elevated troponin: KASHIF likely secondary to sepsis, troponin trending down, likely secondary to KASHIF Hold Lasix, avoid nephrotoxic agents, trend daily BMP Pulmonary edema noted on chest x-ray, light hydration, close monitoring Factor V Leiden Hx DVT: INR 1.9, continue home Coumadin dosing Hx hypothyroidism: Continue levothyroxine Hx ELAN not on CPAP: Not currently on oxygen or CPAP at bedtime Hx HTN: Continue furosemide, will also help with lower extremity edema Hx chronic pain syndrome Hx depression Continue Wellbutrin A total of 40 minutes were spent on chart review/reviewing diagnostic data/facilitating plan of care Full code DVT prophylaxis: Coumadin Admission and Anticipated Discharge Date Admission Date: April 29, 2025 Supervising Physician Co-Signing Physician Notes Patient was seen and examined at bedside as a follow-up of metabolic encephalopa thy in the setting of possible community-acquired pneumonia and left lower extremity cellulitis. Patient is still lethargic but denies any pain or discomfort at bedside exam. Continue with antibiotics, add probiotics. CPK level 63. Repeat CPK in about [address] scan of head/chest/abdomen. Await blood and urine culture. Continue with IV fluidsFor KASHIF/CKD. Avoid nephrotoxic's. On exam: Patient lethargic, arousable. BLE lymphedema noted. LLE warm /red. Rest of the examination as above. Total time spent independently: 20 minutes. I have seen and examined the patient and have discussed the case with the provider above. I agree with the assessment and plan as stated. Subjective Patient seen and examined. Lethargic but arousable. Answers yes or no questions. Still confused on exam. Denies any chest pain or shortness of breath. Does report some pain in her legs Review of Systems Review of Systems: All systems reviewed & are unremarkable except as noted in HPI & below Physical Exam Constitutional: WD/WN, vitals as above + ill appearing Eyes: PERRL, conjunctivae normal, anicteric sclerae ENMT: external ear and nose normal, oropharynx normal Neck: trachea midline, no thyromegaly Respiratory: normal respiratory effort, lungs clear to auscultation Cardiovascular: RRR, no murmur, no edema (+3 b/l le edema; L leg warm and reddened to the touch) Gastrointestinal (Abdomen): normal bowel sounds, soft, nontender, no hepatosplenomegaly Musculoskeletal: no cyanosis or clubbing, extremities motor strength 5/5 Neurologic: PERRL, EOMI, accommodation nl, no face palsy, no dysarthria Psychiatric: A+Ox3, euthymic affect Lymphatic: no cervical or axillary lymphadenopathy Results & Data Results & Data Vital Signs (Past 12 Hours) Vital Signs Temp Pulse Pulse Resp BP Pulse Ox O2 Del Method 04/30/25 07:35 38.6 C H 75 20 146/73 H 94 Nasal Cannula 04/29/25 22:57 Nasal Cannula 04/29/25 22:42 70 O2 Flow Rate 04/30/25 07:35 2 04/29/25 22:57 2 04/29/25 22:42 Diagnostic Findings Laboratory Results WBC 10.28 K/ul (4.8-10.8) 04/30/25 07:29 RBC 3.95 M/uL (4.20-5.40) L 04/30/25 07:29 Hgb 11.8 g/dl (12.0-16.0) L 04/30/25 07:29 Hct 35.6 % (37.0-47.0) L 04/30/25 07:29 MCV 90.1 fL (80.0-100.0) 04/30/25 07:29 MCH 29.9 pg (25.0-34.0) 04/30/25 07: MCHC 33.1 g/dL (32.0-36.0) 04/30/25 07: RDW Std Deviation 47.7 fL (36.4-46.3) H 04/30/25 07: RDW Coeff of Deandre 14.4 % (11.5-14.5) 04/30/25: Plt Count 131 K/uL (130-400) 04/30/25 07: MPV 9.9 fL (9.4-12.4) 04/30/25 07: Immature Gran % (Auto) 0.4 % 04/30/25 07: Neut % (Auto) 88.6 % 04/30/25 07: Lymph % (Auto) 5.4 % 04/30/25 07: [place] % (Auto) 5.4 % 04/30/25 07: Eos % (Auto) 0.0 % 04/30/25: Baso % (Auto) 0.2 % 04/30/25: Neut # (Auto) 9.10 K/uL (1.40-6.50) H 04/30/25 07: Lymph # (Auto) 0.56 K/uL (1.20-3.40) L 04/30/25 07: [place] # (Auto) 0.56 K/uL (0.11-0.59) 04/30/25 07: Eos # (Auto) 0.00 K/uL (0.00-0.50) 04/30/25: Baso # (Auto) 0.02 K/uL (0.00-0.20) 04/30/25: Immature Gran # (Auto) 0.04 K/uL (0.01-0.20) 04/30/25: PT 19.8 Seconds (9.0-12.0) H 04/30/25 07: INR 1.9 (0.9-1.1) H 04/30/25 07: VBG pH 7.42 (7.36-7.41) H 04/30/25: VBG pCO2 44 mmHg (38-50) 04/30/25 07:29 VBG pO2 55 mmHg 04/30/25 07:29 VBG HCO3 29 mmol/L 04/30/25 07:29 VBG O2 Saturation 88.6 % 04/30/25 07:29 VBG Base Excess 3.5 mEq/L 04/30/25 07:29 Sodium 138 mmol/L (136-145) 04/30/25 07:29 Potassium 3.6 mmol/L (3.5-5.1) 04/30/25 07:29 Chloride 103 mmol/L (98-107) 04/30/25 07:29 Carbon Dioxide 30 mmol/L (21-32) 04/30/25 07:29 Anion Gap 5 (3-11) 04/30/25 07:29 BUN 21 mg/dl (6-23) 04/30/25 07:29 Creatinine 1.60 mg/dl (0.6-1.2) H D 04/30/25 07:29 Est Cr Clr Drug Dosing 65.0 ml/min 04/30/25 07:29 eGFR 37.38 04/30/25 07:29 BUN/Creatinine Ratio 13.1 (10-20) 04/30/25 07:29 Glucose 103 mg/dl (70-99(Fasting)) H 04/30/25 07:29 Lactate 0.9 mmol/L (0.4-2.0) 04/29/25 16:32 Calcium 8.2 mg/dl (8.6-10.3) L 04/30/25 07:29 Phosphorus 3.2 mg/dl (2.5-4.9) 04/30/25 07:29 Magnesium 1.9 mg/dl (1.7-2.4) 04/30/25 07:29 Total Bilirubin 0.7 mg/dl (0.2-1.0) 04/29/25 16:32 Direct Bilirubin 0.2 mg/dl (0-0.2) 04/29/25 16:32 AST 31 U/L (13-39) 04/29/25 16:32 ALT 12 U/L (7-52) 04/29/25 16:32 Alkaline Phosphatase 61 U/L (34-104) 04/29/25 16:32 Total Creatine Kinase 63 U/L (26-192) 04/29/25 16:32 Troponin I High Sens 51.2 pg/ml (0-14) H* D 04/30/25 07:29 Total Protein 6.8 gm/dl (6.0-8.3) 04/29/25 16:32 Albumin 3.1 gm/dl (3.4-5.0) L 04/29/25 16:32 Procalcitonin 3.52 ng/ml (0-0.5) H 04/29/25 16:32 Urine Color See Comment 04/29/25 19:22 Urine Appearance Cloudy (Clear) A 04/29/25 19:22 Urine pH Not Reportable 04/29/25 19:22 Ur Specific [place] 1.020 (1.000-1.030) 04/29/25 19:22 Urine Protein Not Reportable 04/29/25 19:22 Urine Glucose (UA) Not Reportable 04/29/25 19:22 Urine Ketones Not Reportable 04/29/25 19:22 Urine Blood Not Reportable 04/29/25 19:22 Urine Nitrite Not Reportable 04/29/25 19:22 Urine Bilirubin Not Reportable 04/29/25 19:22 Urine Urobilinogen Not Reportable 04/29/25 19:22 Ur Leukocyte Esterase Not Reportable 04/29/25 19:22 Urine RBC >20 /hpf (0-2) H 04/29/25 19:22 Urine WBC 21-50 /hpf (0-5) H 04/29/25 19:22 Ur Epithelial Cells 11-20 /hpf (0-2) H 04/29/25 19:22 Urine Bacteria 1+ (None Seen) H 04/29/25 19:22 Granular Casts P /lpf (None Prsent) 04/29/25 19:22 Urine Comment 04/29/25 19:22 Impressions Chest X-Ray 04/29/25 16:19 Chest radiograph, one view History: Sepsis Comparison: February 20, 2025 Findings: Single AP view of the chest performed. Perihilar opacities. Blunted left costophrenic angle is seen, with a small pleural effusion not excluded. No pneumothorax. The cardiomediastinal silhouette is within normal limits. Indistinct pulmonary vascularity. No evidence for lymphadenopathy. No visualized bony or soft tissue abnormality. Impression: Bilateral perihilar opacity with indistinct pulmonary vasculature suggesting pulmonary edema. Underlying infection also is not excluded. Electronically signed by Stanford Layton 04-29-2025 6:34 PM
[2025-04-30] MEDS: LACTATED RINGER'S 1,000 ML IV SCH (11:57)
[2025-04-30] MEDS: WARFARIN SOD 10 MG TAB PO SCH (16:27)
[2025-04-30] MEDS: LACTOBACILLUS ACIDOPHILUS 1 GM PACK PO SCH (16:29)
--- NOTE | 2025-04-30 21:33 | CT Scan Report ---
Exam(s): CT CHEST Without Contrast EXAM: CT Chest Without Intravenous Contrast CLINICAL HISTORY: Reason for exam: pneumonia? on cxr. TECHNIQUE: Axial computed tomography images of the chest without intravenous contrast. CTDI is 34.37 mGy and DLP is 2261.59 mGy-cm. Automated exposure control was utilized for the study. A dose lowering technique was utilized adhering to the principles of ALARA. COMPARISON: CT chest on 02/20/2025 FINDINGS: Lungs: Mosaic pattern of attenuation in the lungs could be secondary to air trapping versus infectious/inflammatory process or edema. Mild dependent atelectasis bilaterally. No mass. Pleural space: Trace bilateral pleural effusions. No pneumothorax. Heart: Small pericardial effusion. Mild coronary artery and mitral annular calcifications. No cardiomegaly. Mediastinum: Small hiatal hernia. Bones/joints: Degenerative changes of the spine. No acute fracture. Soft tissues: Unremarkable. Vasculature: See above. Lymph nodes: Unremarkable. No enlarged lymph nodes. Stomach and bowel: Postsurgical changes of the stomach. IMPRESSION: 1. Mosaic pattern of attenuation in the lungs could be secondary to air trapping versus infectious/inflammatory process or edema. 2. Trace bilateral pleural effusions. Electronically signed by: Isak Cintron M.D. 04/30/25 21:32 PM
--- NOTE | 2025-04-30 21:36 | CT Scan Report ---
Exam(s): CT ABDOMEN + PELVIS Without Contrast EXAM: CT Abdomen and Pelvis Without Intravenous Contrast CLINICAL HISTORY: Reason for exam: uti, sepsi,, hx of kidney stones. TECHNIQUE: Axial computed tomography images of the abdomen and pelvis without intravenous contrast. CTDI is 34.37 mGy and DLP is 2261.59 mGy-cm. Automated exposure control was utilized for the study. A dose lowering technique was utilized adhering to the principles of ALARA. COMPARISON: CT abdomen/pelvis on 02/20/2025 FINDINGS: Lung bases: Please see accompanying CT chest for further details. ABDOMEN: Liver: Mild hepatomegaly. Gallbladder and bile ducts: Unremarkable. No calcified stones. No ductal dilation. Pancreas: Unremarkable. No ductal dilation. Spleen: Borderline size of the spleen. Adrenals: Unremarkable. No mass. Kidneys and ureters: Unremarkable. No hydronephrosis or obstructing ureteral stone. Stomach and bowel: Fluid and gas filled small bowel loops may represent enteritis in the appropriate clinical setting. Gastric sleeve changes. Evaluation of the stomach is limited by underdistention. PELVIS: Appendix: No findings to suggest acute appendicitis. Bladder: Underdistended bladder limits evaluation. Please correlate with urinalysis if concerned for cystitis. No stones. Reproductive: Unremarkable as visualized. ABDOMEN and PELVIS: Intraperitoneal space: Unremarkable. No free air. No significant fluid collection. Bones/joints: Grade 1 anterolisthesis of L4 on L5. Degenerative changes of the spine. No acute fracture. No dislocation. Soft tissues: Small fat containing umbilical hernia. Vasculature: Unremarkable. No abdominal aortic aneurysm. Lymph nodes: Nonspecific mildly prominent inguinal and retroperitoneal lymph nodes. IMPRESSION: 1. Fluid and gas filled small bowel loops may represent enteritis in the appropriate clinical setting. 2. Underdistended bladder limits evaluation. Please correlate with urinalysis if concerned for cystitis. Electronically signed by: Isak Cintron M.D. 04/30/25 21:35 PM
--- NOTE | 2025-04-30 21:46 | CT Scan Report ---
Exam(s): CT HEAD Without Contrast EXAM: CT Head Without Intravenous Contrast CLINICAL HISTORY: Reason for exam: AMS, fever. TECHNIQUE: Axial computed tomography images of the head/brain without intravenous contrast. CTDI is 35.92 mGy and DLP is 624.41 mGy-cm. Automated exposure control was utilized for the study. A dose lowering technique was utilized adhering to the principles of ALARA. COMPARISON: CT head on 02/22/2025 FINDINGS: Brain: No acute infarct or hemorrhage. No extra-axial fluid collection. No mass effect or midline shift. Ventricles and sulci: Normal. No ventriculomegaly or intraventricular hemorrhage. Bones: Old fracture deformity of the left lamina papyracea. No bony lesion or acute fracture. Subcutaneous tissues: Normal. Sinuses: Normal. No air-fluid levels or mucosal thickening. Mastoid air cells: Normal. Orbits: Grossly unremarkable. IMPRESSION: No acute intracranial abnormality. Further evaluation could be performed with MRI if clinically indicated. Electronically signed by: Isak Cintron M.D. 04/30/25 21:45 PM
[2025-05-01 09:18] LABS: Hematocrit (blood only) 35.6 % (37.0-47.0); Hemoglobin 11.6 g/dl (12.0-16.0); Immature Granulocytes # (auto) 0.02 K/uL (0.01-0.20); Immature Granulocytes % (auto) 0.4 %; Mean Corpuscular Hemoglobin 30.3 pg (25.0-34.0); Mean Corpuscular Volume 93.0 fL (80.0-100.0); Platelet Count 124 K/uL (130-400); RDW Standard Deviation 49.1 fL (36.4-46.3); Red Blood Count 3.83 M/uL (4.20-5.40); White Blood Count 4.90 K/ul (4.8-10.8)
[2025-05-01 09:59] LABS: Alanine Aminotransferase 13.0 U/L (7-52); Albumin Globulin Ratio 0.8 (0.9-2); Alkaline Phosphatase 54.0 U/L (34-104); Anion Gap 6.0 (3-11); Bilirubin,Total 0.4 mg/dl (0.2-1.0); Blood Urea Nitrogen 33.0 mg/dl (6-23); Calcium 8.3 mg/dl (8.6-10.3); Carbon Dioxide 29.0 mmol/L (21-32); Chloride 102.0 mmol/L (98-107); Creatinine Clr Calc Pharmacy 42.1 ml/min; Globulin 3.3 gm/dl (2.5-4.0); Glucose 89.0 mg/dl (70-99(Fasting)); Potassium 3.6 mmol/L (3.5-5.1); Sodium 137.0 mmol/L (136-145); Total Protein 6.1 gm/dl (6.0-8.3)
[2025-05-01 10:11] LABS: INR 2.4 (0.9-1.1); Prothrombin Time 24.4 Seconds (9.0-12.0)
[2025-05-01] MEDS: ADVANCED PROBIOTIC 625 MG CAPSULE PO SCH (10:17)
--- NOTE | 2025-05-01 10:40 | Hospitalist Progress Note ---
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 Sepsis secondary to LLE cellulitis Leukocytosis, fevers, elevated procalcitonin on presentation all indicative of sepsis Blood culture prelim NGTD after 24hrs Patient has history of recurrent cellulitis (this is 5th occurrence in last 5 years) for which she saw Dr Hicks of ID outpatient on 04/09/2025 who recommended amoxicillin bid for prophylaxis but patient has not started this yet Current cellulitis initially treated with cefepime and daptomycin Infectious disease consulted and recommending: * Stop cefepime and daptomycin iv * Check MRSA screen for record * Start cefazolin 2 gm iv q8 hours for suspected Streptococcus spp vs MSSA * Granted that the patient clinically improves on cefazolin, may switch cefazolin to cephalexin 1000 mg po qid to continue abx therapy until resolution of cellulitis: anticipate total 14 days from 04/30/25 to 05/13/25, followed by long-term abx suppression w/ cefadroxil 500 mg po bid for at least 6 months * F/u w/ ID outpatient clinic in 2-3 months * If she does not improve on cefazolin, please, contact ID [id number] Elevated troponin KASHIF likely secondary to sepsis/dehydration/contrast Troponin trended down, likely secondary to KASHIF Creat 1.21-> 1.60-> 2.47 today Hold Lasix, avoid nephrotoxic agents, continue MIVF Trend daily BMP Consider Nephrology consult tomorrow if no improvement Metabolic encephalopathy, resolved Confusion likely secondary to infection - resolved Head CT without acute abnormality Abdomen CT showed possible enteritis but patient does not have d/d of enteritis; possible cystitis but urine culture negative UA ordered today due to dark brown/reddish urine per nurse Possible community-acquired pneumonia Chest x-ray showed possible pneumonia Patient denies s/s of PNA On RA with sats >90% Discontinue doxycycline Factor V Leiden Hx DVT INR 2.4 today Continue home Coumadin dosing Hypothyroidism Continue levothyroxine ELAN not on CPAP Not currently on oxygen or CPAP at bedtime HTN Lasix on hold due to KASHIF Chronic pain syndrome Depression Continue Wellbutrin and duloxetine DVT Prophylaxis: on Coumadin Code Status: FULL CODE PCP: Krzysztof Pickering Disposition: awaiting PT/OT recs Patient seen in collaboration with Dr Mcwilliams. Please see addendum. I spent a total of 60 minutes coordinating, documenting and providing care for this patient excluding time spent in the performance of separately billed services or time spent by another provider/QHP. Admission and Anticipated Discharge Date Admission Date: April 29, 2025 Supervising Physician Co-Signing Physician Notes Patient was seen and examined at bedside as a follow-up of metabolic encephalopathy in the setting of possible community-acquired pneumonia and left lower extremity cellulitis. Patient is still lethargic but denies any pain or discomfort at bedside exam. Continue with antibiotics, add probiotics. CPK level 63. Repeat CPK in about [address] scan of head/chest/abdomen. d/w pt's son and dil at bedside. Await blood and urine culture. no growth so far. Continue with IV fluids for KASHIF/CKD. Avoid nephrotoxic's. if continues to uptrend consider nephro eval. d/w ID stop cefepime and dapto, MRSA screen, start cefazolin - total 14 d Rx, then chronic suppressive Rx and f/u ID as OP. On exam: AAO4, BLE lymphedema noted. LLE warm /red. Rest of the examination as above. Total time spent independently: 23 minutes. I have seen and examined the patient and have discussed the case with the provider above. I agree with the assessment and plan as stated. Subjective Patient seen resting in bed Reports she is feeling much better today Cellulitis is improved per patient Denies chest pain, SOB, abdominal pain, N/V/D Review of Systems Review of Systems: All systems reviewed & are unremarkable except as noted in Subjective Physical Exam Physical Exam: General/Psych: morbidly obese, laying in bed, NAD, conversing easily Head: normocephalic, atraumatic Eyes: normal inspection, PERRL, conjunctivae pink ENT: external ear and nose normal, oropharynx normal Neck: normal visual inspection, trachea midline Respiratory: normal respiratory effort, lungs clear to auscultation, no wheeze/rales/rhonchi, no accessory muscle use Cardiovascular: regular rate and rhythm, no murmur/rub/gallop, no JVD Extremities: no cyanosis or clubbing, normal peripheral pulses, no BLE edema Abdomen/GI: normal bowel sounds, soft, nontender Neurologic/MSK: A+Ox3, motor strength 5/5, moves all extremities Skin: chronic venous stasis skin changes noted to BLE with erythema and warmth noted LLE > RLE Results & Data Results & Data Vital Signs (Past 12 Hours) Vital Signs Temp Pulse Resp BP Pulse Ox O2 Del Method O2 Flow Rate 05/01/25 07:35 36.6 C 71 15 128/75 95 Nasal Cannula 2 05/01/25 03:45 36.5 C 64 18 132/78 98 Nasal Cannula 2 04/30/25 23:30 36.6 C 67 23 125/77 97 Nasal Cannula 2 Laboratory Results Short CBC 05/01/25 Range/Units 08:46 WBC 4.90 (4.8-10.8) K/ul Hgb 11.6 L (12.0-16.0) g/dl Hct 35.6 L (37.0-47.0) % Plt Count 124 L (130-400) K/uL BMP 05/01/25 08:46 Sodium 137 Potassium 3.6 Chloride 102 Carbon Dioxide 29 BUN 33 H Creatinine 2.47 H D Glucose 89 Calcium 8.3 L Liver Function 05/01/25 Range/Units 08:46 Total Bilirubin 0.4 (0.2-1.0) mg/dl AST 30 (13-39) U/L ALT 13 (7-52) U/L Alkaline Phosphatase 54 (34-104) U/L Albumin 2.8 L (3.4-5.0) gm/dl I have independently reviewed and interpreted patient's labs including CBC, CMP, PTT, PT/INR. Medications Administered Current Inpatient Medications Bupropion HCl (Bupropion Sr 150 Mg Tabcr) 150 mg PO 1300 MICHELLE Stop: 05/30/25 12:59 Last Admin: 04/30/25 14:09 Dose: Not Given Bupropion HCl (Bupropion Sr 150 Mg Tabcr) 300 mg PO DAILY MICHELLE Stop: 05/30/25 08:59 Last Admin: 05/01/25 08:49 Dose: 300 mg Calcium Carbonate (Calcium Carbonate 1250mg Tab) 1 tab PO DAILY MICHELLE Stop: 05/30/25 08:59 Last Admin: 05/01/25 08:50 Dose: 1 tab Duloxetine HCl (Duloxetine Hcl 60 Mg Cap) 60 mg PO DAILY MICHELLE Stop: 05/30/25 08:59 Last Admin: 05/01/25 08:50 Dose: 60 mg Fluticasone Propionate (Fluticasone Propionate Na Spr 16 Gm Btl) 2 sprays NA DAILY MICHELLE Stop: 05/30/25 08:59 Last Admin: 05/01/25 08:51 Dose: 2 sprays Furosemide (Furosemide 20 Mg Tab) 20 mg PO DAILY MICHELLE Stop: 05/30/25 08:59 Last Admin: 04/30/25 09:18 Dose: 20 mg Daptomycin 850 mg/ Syringe 17 mls @ 8.5 mls/min IV Q24H [facility]; Protocol Stop: 05/06/25 20:59 Last Admin: 04/30/25 20:26 Dose: 8.5 mls/min Acetaminophen (Ofirmev) 1,000 mg in 100 mls @ 400 mls/hr IV Q8H PRN PRN Reason: Pain or Fever Stop: 05/02/25 22:25 Last Infusion: 05/01/25 03:58 Dose: Infused Lactated Ringer's (Lr) 1,000 mls @ 80 mls/hr IV .[id number] [facility] Stop: 05/03/25 10:59 Last Admin: 05/01/25 03:43 Dose: 80 mls/hr Cefepime HCl (Maxipime 2000mg) 2,000 mg in 20 mls @ 5 mls/min IV Q12 [facility]; Protocol Stop: 05/08/25 20:59 Lactobacillus Acidophilus (Advanced Probiotic 625 Mg Capsule) 1,250 mg PO DAILY MICHELLE Stop: 05/31/25 09:59 Last Admin: 05/01/25 10:17 Dose: 1,250 mg Levothyroxine Sodium (Levothyroxine Sodium 88 Mcg Tablet) 88 mcg PO DAILYBB [facility] Stop: 05/30/25 06:29 Last Admin: 05/01/25 05:48 Dose: 88 mcg Nitroglycerin (Nitroglycerin Sl 0.4 Mg/Tab Tab) 0.4 mg SL Q5M PRN PRN Reason: Chest Pain Stop: 05/29/25 22:25 Oxycodone HCl (Oxycodone Hcl Ir 5 Mg Tab (Immediate Release)) 5 mg PO Q4 PRN PRN Reason: Severe Pain (Scale 7, 8, 9,10) Stop: 05/14/25 19:28 Last Admin: 04/30/25 20:26 Dose: 5 mg Pantoprazole Sodium (Pantoprazole 40 Mg Tab) 40 mg PO DAILY [facility] Stop: 05/30/25 08:59 Last Admin: 05/01/25 08:50 Dose: 40 mg Polyethylene Glycol (Polyethylene (Miralax) 17 Gm Pack) 17 gm PO DAILY PRN PRN Reason: Constipation Stop: 05/29/25 22:25 Vitamin D (Cholecalciferol 25 Mcg (1000 Units) Tab) 50 mcg PO DAILY [facility] Stop: 05/30/25 08:59 Last Admin: 05/01/25 08:50 Dose: 50 mcg Warfarin Sodium (Warfarin Sod 5 Mg Tab) 5 mg PO [id number] [facility] Stop: 05/31/25 15:59 Warfarin Sodium (Warfarin Sod 10 Mg Tab) 10 mg PO [id number] [facility] Stop: 05/30/25 15:59 Last Admin: 04/30/25 16:27 Dose: 10 mg
--- NOTE | 2025-05-01 14:36 | Infectious Disease Consult ---
Date of Service May 01, 2025 Telehealth Information I performed this visit using a real-time telehealth connection between my location and the patients location ([facility]). After connecting through interactive tele-video, patient was identified by name and date of and/or wristband check.Patient (or authorized healthcare promotions representative) was informed that this was a telemedicine visit and it was being conducted confidentially over secure lines. My office door was closed and no one else was present in the room with me.Patient (or authorized healthcare promotions representative) provided consent to proceed with the visit, expressed an understanding of privacy and security of the telemedicine visit, and gave permission to have a hospital promotions representative in the room in order to assist with the visit and to conduct portions of the visit, as needed. I informed the patient (or authorized healthcare promotions representative) that I reviewed their record and presented the opportunity for them to ask any questions regarding the visit today. The patient agreed to participate. Assessment & Plan (1) Cellulitis: Plan: Assessment: Sepsis - resolved Recurrrent cellulitis of LE Morbid obesity Recommendations: - Stop cefepime and daptomycin iv - Check MRSA screen for record - Start cefazolin 2 gm iv q8 hours for suspected Streptococcus spp vs MSSA - Granted that the patient clinically improves on cefazolin, may switch cefazolin to cephalexin 1000 mg po qid to continue abx therapy until resolution of cellulitis: anticipate total 14 days from 04/30/25 to 05/13/25, followed by long-term abx supression w/ cefadroxil 500 mg po bid for at least 6 months. - F/u w/ ID outpatient clinic inm 2-3 months - If she does not improve on cefazolin, please, contact ID. During this patient encounter, one or more of the following was provided in addition to my in person visit: disease transmission risk assessment and mitigation; public health investigation, analysis, and testing; and/or complex antimicrobial therapy counseling and treatment. I spent a total of 65 minutes coordinating, documenting, and providing care for this patient excluding time spent in the performance of separately billed services or time spent by another provider/QHP. History of Present Illness History of Present Illness This is a 55 y/o morbidly obese female (Amanda) w/ hx of recurrent LE cellulitis, factor V Leiden mutation, DVT w/ thrombophlebitis on coumadin, hypothyroidism,ELAN,, hypertension, chronic pain syndrome, kidney stones, and major depression w/ severe psychotic features, who was brought to [facility] for generalized weakness, confusion and recurrent LE cellulitis. Last cellulitis was March this year. On admission, fever was noted w/ leukocytosis and redness was noted mostoy on LLE. The patient reports pain (more than chronic pain), swelling and warmth on both legs. No diarrhea, n/v, rash, urinary symptoms, sob, coughing or cp. She was recently seen by ID at outpatient clinic (Dr. Hicks) and was to be started on abx suppression w/ amoxicillin 500 mg po bid, but she has not started the abx suppression. Allergies Allergy/AdvReac Type Severity Reaction Status Date / Time latex Allergy Intermediate SKIN Verified 12/11/23 08:20 IRRITATION nylon Allergy Mild erythema/pus Verified 12/11/23 08:20 nylon sutures adhesive AdvReac Intermediate skin Verified 12/11/23 08:20 tearing bacitracin AdvReac Mild SKIN Verified 12/11/23 08:20 [From Neosporin INFECTION ([id number])] neomycin AdvReac Mild SKIN Verified 12/11/23 08:20 [From Neosporin INFECTION ([id number])] polymyxin B AdvReac Mild SKIN Verified 12/11/23 08:20 [From Neosporin INFECTION ([id number])] Home Medications Medication Instructions Recorded Confirmed Type bupropion HCl 150 mg tablet,12 hr 150 mg PO UD 04/29/25 04/29/25 History sustained-release calcium carbonate 600 mg PO DAILY 04/29/25 04/29/25 History cholecalciferol (vitamin D3) 50 50 mcg PO DAILY 04/29/25 04/29/25 History mcg (2,000 unit) capsule (Vitamin D3) cyclobenzaprine 5 mg tablet 5 mg PO HS PRN Muscle Spasm 04/29/25 04/29/25 History duloxetine 60 mg capsule,delayed 60 mg PO DAILY 04/29/25 04/29/25 History release fexofenadine 60 mg-pseudoephedrine 1 tab PO Q12H PRN Allergic Symptoms 04/29/25 04/29/25 History ER 120 mg tablet,ext.release,12 hr (Ayde-D 12 Hour) fluticasone propionate 50 2 spray intranasal DAILY 04/29/25 04/29/25 History mcg/actuation nasal spray,suspension furosemide 20 mg tablet 20 mg PO DAILY 04/29/25 04/29/25 History iron,carbonyl 65 mg-vitamin C 125 1 tab PO DAILY 04/29/25 04/29/25 History mg tablet,delayed release (Vitron-C) levothyroxine 88 mcg tablet 88 mcg PO DAILY 04/29/25 04/29/25 History omeprazole 20 mg capsule,delayed 40 mg PO DAILY 04/29/25 04/29/25 History release oxycodone-acetaminophen 10 mg-325 1 tab PO Q6H PRN Severe Pain 04/29/25 04/29/25 History mg tablet (Scale Score 7-10) warfarin 5 mg tablet 5 mg PO UD 04/29/25 04/29/25 History Patient History Medical History Hypoxia Osteoarthritis Hypothyroidism Anemia Depression History of kidney stones no sx. Sleep apnea no device currently Anticoagulated on warfarin Chronic back pain Thrombophlebitis of right saphenous vein hx ~2010 Surgical History History of esophagogastroduodenoscopy (EGD) Nausea and vomiting after administration of anesthetic agent History of dilatation and curettage History of carpal tunnel release rt/left History of colonoscopy History of tooth extraction Family History Other No family history of adverse response to anesthesia Social History Smoking Status: Never smoker Tobacco Type: Cigarettes Second Hand Exposure: No; Do You Dip or Chew Tobacco: No; Hx Alcohol Use: Yes Hx Substance Use: Yes Last Used Substance Other:: former user Preferred Language: Kittitian Communication Ability: Effective Hearing Ability: Normal Cdc Associate Required: No Beliefs That Will Affect Care: None marital status: Single Current Living Situation: Significant Other Current Living Situation Comment: WITH BOYFRIEND current occupational status: disabled Other Information That Helps Us Care for You: No Feels Safe at Home: Declines to Answer Diet: regular caffeine: Yes (coffee) during the past year weight has: remained stable Physical Activity Frequency: Does not Exercise Do you think of yourself as: straight/heterosexual Gender Identity: Female Assistive Devices: Glasses Review of Systems as HPI and all others negative Physical Exam Gen: no acute distress, morbidly obese Lungs: breathing comfortably on room air Ext: chronic severe lymphedema in LE bl w/ brownish red skin changes in lower half of legs b/l w/ hyperkeratotic changes consistent w/ venous stasis skin changes, minimal warmth noted on LLE, but moderate tenderness on both legs and faint erythema on L leg, no ulcers Results & Data Vital Signs (Past 12 Hours) Vital Signs Temp Pulse Pulse Resp BP BP Pulse Ox 05/01/25 11:15 36.5 C 87 19 164/89 H 94 05/01/25 08:00 71 05/01/25 08:00 05/01/25 07:35 36.6 C 71 15 128/75 95 05/01/25 03:45 36.5 C 64 18 132/78 98 O2 Del Method O2 Flow Rate 05/01/25 11:15 Room Air 05/01/25 08:00 05/01/25 08:00 Room Air 05/01/25 07:35 Nasal Cannula 2 05/01/25 03:45 Nasal Cannula 2 Laboratory Results WBC 13.36K ->-> 4.9K H 11.6 Plt 124K Cr 2.47 (CrCl 42.1) LFT WNL PCT 3.52 Blood cx (04/30): NGTD U cx (04/29): NG Blood cx (04/29): NGTD Chest CT: 1. Mosaic pattern of attenuation in the lungs could be secondary to air trapping versus infectious/inflammatory process or edema. 2. Trace bilateral pleural effusions. CT A/P: 1. Fluid and gas filled small bowel loops may represent enteritis in the appropriate clinical setting. 2. Underdistended bladder limits evaluation. Please correlate with urinalysis if concerned for cystitis.
[2025-05-01] MEDS: WARFARIN SOD 5 MG TAB PO SCH (17:10)
[2025-05-01] MEDS ORDERED: CEFEPIME 2000MG 2,000 MG/20 ML SYR IV SCH (21:00)
--- NOTE | 2025-05-01 22:37 | Electrocardiogram Report ---
Test Reason : Blood Pressure : */* mmHG Vent. Rate : 85 BPM Atrial Rate : 85 BPM P-R Int : 190 ms QRS Dur : 104 ms QT Int : 356 ms P-R-T Axes : 69 61 75 degrees QTcB Int : 423 ms Normal sinus rhythm Normal ECG When compared with ECG of 20-Feb-2025 13:49, No significant change was found Confirmed by David Miramontes ([id number]) on 05/01/2025 10:37:07 PM Referred By: REFERRED SELF Confirmed By: David Miramontes
[2025-05-01 23:21] LABS: Appearance Urine Turbid (Clear); Glucose Urine UA Negative (Negative); RBC Urine Automated >20 /hpf (0-2)
[2025-05-01 23:38] LABS: Bacteria Urine Automated None Seen (None Seen)
[2025-05-02 06:55] LABS: Hematocrit (blood only) 35.8 % (37.0-47.0); Hemoglobin 11.5 g/dl (12.0-16.0); Mean Corpuscular Hemoglobin 29.7 pg (25.0-34.0); Mean Corpuscular Volume 92.5 fL (80.0-100.0); Platelet Count 138 K/uL (130-400); RDW Standard Deviation 48.6 fL (36.4-46.3); Red Blood Count 3.87 M/uL (4.20-5.40); White Blood Count 4.26 K/ul (4.8-10.8)
[2025-05-02 07:13] LABS: Anion Gap 8.0 (3-11); Blood Urea Nitrogen 38.0 mg/dl (6-23); Calcium 8.2 mg/dl (8.6-10.3); Carbon Dioxide 27.0 mmol/L (21-32); Chloride 101.0 mmol/L (98-107); Creatinine Clr Calc Pharmacy 36.2 ml/min; Glucose 86.0 mg/dl (70-99(Fasting)); Magnesium 2.0 mg/dl (1.7-2.4); Potassium 3.5 mmol/L (3.5-5.1); Sodium 136.0 mmol/L (136-145)
[2025-05-02 07:34] LABS: INR 3.3 (0.9-1.1); Prothrombin Time 31.9 Seconds (9.0-12.0)
--- NOTE | 2025-05-02 08:28 | Hospitalist Progress Note ---
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 Sepsis secondary to LLE cellulitis Leukocytosis, fevers, elevated procalcitonin on presentation all indicative of sepsis Blood culture prelim NGTD after 48hrs Patient has history of recurrent cellulitis (this is 5th occurrence in last 5 years) for which she saw Dr Hicks of ID outpatient on 04/09/2025 who recommended amoxicillin bid for prophylaxis but patient has not started this yet Current cellulitis initially treated with cefepime and daptomycin Infectious disease consulted and recommending: * Stop cefepime and daptomycin iv * Check MRSA screen for record - positive * Start cefazolin 2 gm iv q8 hours for suspected Streptococcus spp vs MSSA * Granted that the patient clinically improves on cefazolin, may switch cefazoli n to cephalexin 1000 mg po qid to continue abx therapy until resolution of cellulitis: anticipate total 14 days from 04/30/25 to 05/13/25, followed by long- term abx suppression w/ cefadroxil 500 mg po bid for at least 6 months * F/u w/ ID outpatient clinic in 2-3 months * If she does not improve on cefazolin, please, contact ID [email or web address] Elevated troponin Troponin trended down, likely secondary to KASHIF Creat 1.21-> 1.60-> 2.47-> 2.93 today Hold Lasix, avoid nephrotoxic agents Renal ultrasound revealed echogenic kidneys suggestive of medical renal disease Nephrology consulted and suspect ATN precipitated by sepsis/infection Discontinue MIVF Trend daily BMP Metabolic encephalopathy, resolved Confusion likely secondary to infection - resolved Head CT without acute abnormality Abdomen CT showed possible enteritis but patient does not have d/d of enteritis; possible cystitis but urine culture negative Possible community-acquired pneumonia Chest x-ray showed possible pneumonia Patient denies s/s of PNA On RA with sats >90% Discontinue doxycycline Factor V Leiden Hx DVT INR 3.3 today Continue home Coumadin dosing Trend PT/INR daily Hypothyroidism Continue levothyroxine ELAN not on CPAP Not currently on oxygen or CPAP at bedtime HTN Lasix on hold due to KASHIF Chronic pain syndrome Depression Continue Wellbutrin and duloxetine DVT Prophylaxis: on Coumadin Code Status: FULL CODE PCP: Kzrysztof Pickering Disposition: awaiting nephrology recs Patient seen in collaboration with Dr Mcwilliams. Please see addendum. I spent a total of 45 minutes coordinating, documenting and providing care for this patient excluding time spent in the performance of separately billed services or time spent by another provider/QHP. Admission and Anticipated Discharge Date Admission Date: April 29, 2025 Supervising Physician Co-Signing Physician Notes Patient was seen and examined at bedside as a follow-up of metabolic encephalopathy in the setting of possible community-acquired pneumonia and left lower extremity cellulitis. Patient is awake oriented. Continue with antibiotics, add probiotics. CPK level 63. Repeat CPK in about [address] scan of head/chest/abdomen. d/w pt's son and dil at bedside. Await blood and urine culture. no growth so far. Continue with IV fluids for KASHIF/CKD. Avoid nephrotoxic's. Cr uptrended, nephro consult placed. d/w ID 05/01 stop cefepime and dapto, MRSA screen, start cefazolin - total 14 d Rx, then chronic suppressive Rx and f/u ID as OP. On exam: AAO4, BLE lymphedema noted. LLE warm /red. Rest of the examination as above. Total time spent independently: 18 minutes. I have seen and examined the patient and have discussed the case with the provider above. I agree with the assessment and plan as stated. Subjective Patient seen resting in bed Was nauseated and vomited this morning due to eating too much Notes discomfort in her lower legs still but overall improving Denies chest pain, SOB, abdominal pain Reports her urine is finally clear Review of Systems Review of Systems: All systems reviewed & are unremarkable except as noted in Subjective Physical Exam Physical Exam: General/Psych: morbidly obese, laying in bed, NAD, conversing easily Head: normocephalic, atraumatic Eyes: normal inspection, PERRL, conjunctivae pink ENT: external ear and nose normal, oropharynx normal Neck: normal visual inspection, trachea midline Respiratory: normal respiratory effort, lungs clear to auscultation, no wheeze/rales/rhonchi, no accessory muscle use Cardiovascular: regular rate and rhythm, no murmur/rub/gallop, no JVD Extremities: no cyanosis or clubbing, normal peripheral pulses, 2+ BLE edema Abdomen/GI: normal bowel sounds, soft, nontender Neurologic/MSK: A+Ox3, motor strength 5/5, moves all extremities Skin: chronic venous stasis skin changes noted to BLE with erythema and warmth noted LLE > RLE Results & Data Results & Data Vital Signs (Past 12 Hours) Vital Signs Temp Pulse Pulse Pulse Resp BP BP 05/02/25 08:11 36.4 C L 65 20 154/85 H 05/02/25 04:03 36.5 C 66 16 133/78 05/01/25 23:28 67 05/01/25 22:20 36.5 C 66 18 132/78 Pulse Ox O2 Del Method 05/02/25 08:11 96 Room Air 05/02/25 04:03 96 Room Air 05/01/25 23:28 05/01/25 22:20 Room Air Laboratory Results Short CBC 05/01/25 05/02/25 Range/Units 08:46 06:22 WBC 4.90 4.26 L (4.8-10.8) K/ul Hgb 11.6 L 11.5 L (12.0-16.0) g/dl Hct 35.6 L 35.8 L (37.0-47.0) % Plt Count 124 L 138 (130-400) K/uL BMP 05/01/25 05/02/25 08:46 06:22 Sodium 137 136 Potassium 3.6 3.5 Chloride 102 101 Carbon Dioxide 29 27 BUN 33 H 38 H Creatinine 2.47 H D 2.93 H D Glucose 89 86 Calcium 8.3 L 8.2 L Liver Function 05/01/25 Range/Units 08:46 Total Bilirubin 0.4 (0.2-1.0) mg/dl AST 30 (13-39) U/L ALT 13 (7-52) U/L Alkaline Phosphatase 54 (34-104) U/L Albumin 2.8 L (3.4-5.0) gm/dl Urine 05/01/25 Range/Units Unknown Urine Color Yellow Urine Appearance Turbid A (Clear) Urine pH 5.0 (4.5-7.5) Ur Specific [place] 1.017 (1.000-1.030) Urine Protein 2+ H (Negative) Urine Glucose (UA) Negative (Negative) I have independently reviewed and interpreted patient's labs including CBC, CMP, UA Medications Administered Current Inpatient Medications Bupropion HCl (Bupropion Sr 150 Mg Tabcr) 150 mg PO 1300 MICHELLE Stop: 05/30/25 12:59 Last Admin: 05/01/25 13:03 Dose: 150 mg Bupropion HCl (Bupropion Sr 150 Mg Tabcr) 300 mg PO DAILY MICHELLE Stop: 05/30/25 08:59 Last Admin: 05/01/25 08:49 Dose: 300 mg Calcium Carbonate (Calcium Carbonate 1250mg Tab) 1 tab PO DAILY MICHELLE Stop: 05/30/25 08:59 Last Admin: 05/01/25 08:50 Dose: 1 tab Duloxetine HCl (Duloxetine Hcl 60 Mg Cap) 60 mg PO DAILY MICHELLE Stop: 05/30/25 08:59 Last Admin: 05/01/25 08:50 Dose: 60 mg Fluticasone Propionate (Fluticasone Propionate Na Spr 16 Gm Btl) 2 sprays NA DAILY MICHELLE Stop: 05/30/25 08:59 Last Admin: 05/01/25 08:51 Dose: 2 sprays Furosemide (Furosemide 20 Mg Tab) 20 mg PO DAILY MICHELLE Stop: 05/30/25 08:59 Last Admin: 04/30/25 09:18 Dose: 20 mg Acetaminophen (Ofirmev) 1,000 mg in 100 mls @ 400 mls/hr IV Q8H PRN PRN Reason: Pain or Fever Stop: 05/02/25 22:25 Last Infusion: 05/01/25 21:24 Dose: Infused Lactated Ringer's (Lr) 1,000 mls @ 80 mls/hr IV .[id number] MICHELLE Stop: 05/03/25 10:59 Last Admin: 05/01/25 21:27 Dose: 80 mls/hr Cefazolin Sodium (Ancef 2000mg) 2,000 mg in 15 mls @ 3.75 mls/min IV Q12H [facility] Stop: 05/08/25 16:59 Last Admin: 05/02/25 05:33 Dose: 3.75 mls/min Lactobacillus Acidophilus (Advanced Probiotic 625 Mg Capsule) 1,250 mg PO DAILY [facility] Stop: 05/31/25 09:59 Last Admin: 05/01/25 10:17 Dose: 1,250 mg Levothyroxine Sodium (Levothyroxine Sodium 88 Mcg Tablet) 88 mcg PO DAILYBB [facility] Stop: 05/30/25 06:29 Last Admin: 05/02/25 06:30 Dose: 88 mcg Nitroglycerin (Nitroglycerin Sl 0.4 Mg/Tab Tab) 0.4 mg SL Q5M PRN PRN Reason: Chest Pain Stop: 05/29/25 22:25 Ondansetron HCl (Ondansetron Inj 2 Mg/Ml 2 Ml Vial) 4 mg IV Q6H PRN PRN Reason: Nausea And Vomiting Stop: 06/01/25 08:22 Oxycodone HCl (Oxycodone Hcl Ir 5 Mg Tab (Immediate Release)) 5 mg PO Q4 PRN PRN Reason: Severe Pain (Scale 7, 8, 9,10) Stop: 05/14/25 19:28 Last Admin: 05/01/25 21:27 Dose: 5 mg Pantoprazole Sodium (Pantoprazole 40 Mg Tab) 40 mg PO DAILY [facility] Stop: 05/30/25 08:59 Last Admin: 05/01/25 08:50 Dose: 40 mg Polyethylene Glycol (Polyethylene (Miralax) 17 Gm Pack) 17 gm PO DAILY PRN PRN Reason: Constipation Stop: 05/29/25 22:25 Vitamin D (Cholecalciferol 25 Mcg (1000 Units) Tab) 50 mcg PO DAILY [facility] Stop: 05/30/25 08:59 Last Admin: 05/01/25 08:50 Dose: 50 mcg Warfarin Sodium (Warfarin Sod 5 Mg Tab) 5 mg PO [id number] [facility] Stop: 05/31/25 15:59 Last Admin: 05/01/25 17:10 Dose: 5 mg Warfarin Sodium (Warfarin Sod 10 Mg Tab) 10 mg PO [id number]@1600 [facility] Stop: 05/30/25 15:59 Last Admin: 04/30/25 16:27 Dose: 10 mg
[2025-05-02] MEDS: ONDANSETRON INJ 2 MG/ML 2 ML VIAL IV PRN (08:49)
--- NOTE | 2025-05-02 10:33 | Nephrology Consultation ---
Date of Consultation May 02, 2025 Assessment & Plan (1) KASHIF (acute kidney injury): Creat baseline was 0.56 just recently during previous Adx in --will count that as baseline. Adx was 1.21 and since then gone up to 1/6 then 2.47 and today 2.93--so rising consistently every day since Admission. this is despite getting IV fluid so definitely not simple vol depletion. So creat already up by x3 times qualifying as stage 3--Non oliguric type. Such consistent daily rise is almost always sec to ATN precipitated by infection/sepsis. Since creat still rising cannot tell how much worse it will get--As of now no need of dialysis and Likely wont need but cannot totally rule out. AIN is also possible but numerically much much less common. Nothing to suggest vol depletion--if anything Imaging suggest Vol overload. Also has been getting RL for last 2 days. Stop IVF now. she is eating and drinking fine currently. But near impossible to accurately assess her volume Status NO obstruction in the imaging tests done already. (2) Cellulitis: Seems like the cause of Sepsis and Is currently on Abx through ID. Acute on chronic problem. ID recommends Abx as well as suppression Abx. Initially On dapto and Cefepime and now on Ancef alone. None of these Abx are particularly known to cause KASHIF. (3) Acute non-ST elevation myocardial infarction (NSTEMI): High trop on Adx and now trending down. (4) Hypomagnesemia: was low at 1.5 but now normal at 2.0. Will follow. Plan time spent 65 mins History of Present Illness Reason for Consultation: KASHIF Attending Physician: Alison Mcwilliams MD History of Present Illness 55/F with heterozygous MTHFR mutation, factor V Leiden mutation heterozygous, history of DVT and on Coumadin, hypothyroidism, obstructive sleep apnea but not using CPAP or oxygen, hypertension, chronic pain syndrome, history of recurrent kidney stones, history of major depression with severe psychotic features who lives at home with her significant other was brought to hospital because of weakness and confusion and right lower leg cellulitis. Creat baseline was 0.56 as of . On Admission was 1.21 and since then gone up to 1/6 then 2.47 and today 2.93--so rising consistently every day since Admission. Currently Dxed as Cellulitis--Acute on chronic problem. ID recommends Abx as well as suppression Abx. Initially On dapto and Cefepime and now on Ancef alone. She had CXR--shows CHF. CT chest/Abd--Small b/l Pl and pericardial eff. No contrast agents given. BP was high on presentation to ED and has not had any low BP readings. got lasix only one day but since 04/30 on hold. Also since then Has been on Ringer lactate 80ml/hr. Making urine but ?? amount. NO major iv hydration. NO Obstruction or renal stone on imaging. ROS----Denies any headache. Denies chest pain. Denies shortness of breath. Denies cough. Denies nausea. Denies abdominal pain. 12 Systems reviewed and is otherwise negative Patient had similar admission February 2025 ,was treated for right lower EXTR cellulitis and possible pneumonia and she improved and was discharged on Augmentin and doxycycline. Physical Exam Physical Exam: General- Awake and alert NO resp Distress HENET--MM moist. Neck supple. NO JVD. Lungs- clear to auscultation no wheezing or crackles. Heart- regular rhythm; no murmur Abdomen- soft, nontender, no distension Extremities- b/l severe lower extremity edema and chronic skin changes seen. Rt > left Allergies Allergy/AdvReac Type Severity Reaction Status Date / Time latex Allergy Intermediate SKIN Verified 12/11/23 08:20 IRRITATION nylon Allergy Mild erythema/pus Verified 12/11/23 08:20 nylon sutures adhesive AdvReac Intermediate skin Verified 12/11/23 08:20 tearing bacitracin AdvReac Mild SKIN Verified 12/11/23 08:20 [From Neosporin INFECTION ([id number])] neomycin AdvReac Mild SKIN Verified 12/11/23 08:20 [From Neosporin INFECTION ([id number])] polymyxin B AdvReac Mild SKIN Verified 12/11/23 08:20 [From Neosporin INFECTION ([id number])] Home Medications Medication Instructions Recorded Confirmed Type bupropion HCl 150 mg tablet,12 hr 150 mg PO UD 04/29/25 04/29/25 History sustained-release calcium carbonate 600 mg PO DAILY 04/29/25 04/29/25 History cholecalciferol (vitamin D3) 50 50 mcg PO DAILY 04/29/25 04/29/25 History mcg (2,000 unit) capsule (Vitamin D3) cyclobenzaprine 5 mg tablet 5 mg PO HS PRN Muscle Spasm 04/29/25 04/29/25 History duloxetine 60 mg capsule,delayed 60 mg PO DAILY 04/29/25 04/29/25 History release fexofenadine 60 mg-pseudoephedrine 1 tab PO Q12H PRN Allergic Symptoms 04/29/25 04/29/25 History ER 120 mg tablet,ext.release,12 hr (Ayde-D 12 Hour) fluticasone propionate 50 2 spray intranasal DAILY 04/29/25 04/29/25 History mcg/actuation nasal spray,suspension furosemide 20 mg tablet 20 mg PO DAILY 04/29/25 04/29/25 History iron,carbonyl 65 mg-vitamin C 125 1 tab PO DAILY 04/29/25 04/29/25 History mg tablet,delayed release (Vitron-C) levothyroxine 88 mcg tablet 88 mcg PO DAILY 04/29/25 04/29/25 History omeprazole 20 mg capsule,delayed 40 mg PO DAILY 04/29/25 04/29/25 History release oxycodone-acetaminophen 10 mg-325 1 tab PO Q6H PRN Severe Pain 04/29/25 04/29/25 History mg tablet (Scale Score 7-10) warfarin 5 mg tablet 5 mg PO UD 04/29/25 04/29/25 History Patient History Medical History Hypoxia Osteoarthritis Hypothyroidism Anemia Depression History of kidney stones no sx. Sleep apnea no device currently Anticoagulated on warfarin Chronic back pain Thrombophlebitis of right saphenous vein hx ~2010 Surgical History History of esophagogastroduodenoscopy (EGD) Nausea and vomiting after administration of anesthetic agent History of dilatation and curettage History of carpal tunnel release rt/left History of colonoscopy History of tooth extraction Family History Other No family history of adverse response to anesthesia Social History Smoking Status: Never smoker Tobacco Type: Cigarettes Second Hand Exposure: No; Do You Dip or Chew Tobacco: No; Hx Alcohol Use: Yes Hx Substance Use: Yes Last Used Substance Other:: former user Preferred Language: Malay Communication Ability: Effective Hearing Ability: Normal 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 Beliefs That Will Affect Care: None marital status: Single Current Living Situation: Significant Other Current Living Situation Comment: WITH BOYFRIEND current occupational status: disabled Other Information That Helps Us Care for You: No Feels Safe at Home: Declines to Answer Diet: regular caffeine: Yes (coffee) during the past year weight has: remained stable Physical Activity Frequency: Does not Exercise Do you think of yourself as: straight/heterosexual Gender Identity: Female Assistive Devices: Glasses Results & Data Vital Signs (Past 12 Hours) Vital Signs Temp Pulse Pulse Pulse Resp BP BP 05/02/25 08:11 36.4 C L 65 20 154/85 H 05/02/25 04:03 36.5 C 66 16 133/78 05/01/25 23:28 67 Pulse Ox O2 Del Method 05/02/25 08:11 96 Room Air 05/02/25 04:03 96 Room Air 05/01/25 23:28 Laboratory Results CBC, renal panel, CXR, CT chest Abd and Pelvis, urine tests, Blood C/s
--- NOTE | 2025-05-02 11:51 | Ultrasound Report ---
RENAL ULTRASOUND CLINICAL HISTORY: worsening KASHIF COMPARISON STUDY: Right upper quadrant ultrasound July 31, 2023. CT of the abdomen and pelvis Apr. TECHNIQUE: Sonography of the kidneys and the urinary bladder was performed. FINDINGS: The right kidney measures 12 cm in maximal dimension and the left measures 12.3 cm. The kid neys are echogenic. This exam is compromised by suboptimal penetration but there is no hydronephrosis . No renal mass is identified. Ureteral jets were not visualized. IMPRESSION: 1. No hydronephrosis. 2. Echogenic kidneys suggestive of medical renal disease. ACT 112: Negative or not required by law. Electronically signed by: Angel Hernandez M.D. 05/02/2025 11:50 AM
[2025-05-03 07:03] LABS: Hematocrit (blood only) 37.4 % (37.0-47.0); Hemoglobin 12.2 g/dl (12.0-16.0); Mean Corpuscular Hemoglobin 30.0 pg (25.0-34.0); Mean Corpuscular Volume 92.1 fL (80.0-100.0); Platelet Count 166 K/uL (130-400); RDW Standard Deviation 48.7 fL (36.4-46.3); Red Blood Count 4.06 M/uL (4.20-5.40); White Blood Count 5.05 K/ul (4.8-10.8)
[2025-05-03 07:30] LABS: Anion Gap 8.0 (3-11); Blood Urea Nitrogen 39.0 mg/dl (6-23); Calcium 8.3 mg/dl (8.6-10.3); Carbon Dioxide 26.0 mmol/L (21-32); Chloride 102.0 mmol/L (98-107); Creatinine Clr Calc Pharmacy 32.9 ml/min; Glucose 88.0 mg/dl (70-99(Fasting)); Potassium 3.7 mmol/L (3.5-5.1); Sodium 136.0 mmol/L (136-145)
[2025-05-03 07:32] LABS: INR 3.3 (0.9-1.1); Prothrombin Time 31.8 Seconds (9.0-12.0)
--- NOTE | 2025-05-03 08:31 | Hospitalist Progress Note ---
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 Sepsis secondary to LLE cellulitis Leukocytosis, fevers, elevated procalcitonin on presentation all indicative of sepsis Blood culture prelim NGTD after 48hrs Patient has history of recurrent cellulitis (this is 5th occurrence in last 5 years) for which she saw Dr Hicks of ID outpatient on 04/09/2025 who recommended amoxicillin bid for prophylaxis but patient has not started this yet Current cellulitis initially treated with cefepime and daptomycin Infectious disease consulted and recommending: * Cefazolin 2 gm iv q8 hours for suspected Streptococcus spp vs MSSA * Granted that the patient clinically improves on cefazolin, may switch cefazolin to cephalexin 1000 mg po qid to continue abx therapy until resolution of cellulitis: anticipate total 14 days from 04/30/25 to 05/13/25, followed by long-term abx suppression w/ cefadroxil 500 mg po bid for at least 6 months * F/u w/ ID outpatient clinic in 2-3 months * If she does not improve on cefazolin, please, contact ID KASHIF Elevated troponin Troponin trended down, likely secondary to KASHIF Creat 1.21-> 1.60-> 2.47-> 2.93-> 3.22 today Hold Lasix, avoid nephrotoxic agents Meds reviewed for dosing based on current CrCl - patient agreeable to reducing Wellbutrin dosing from 450mg to 150mg daily Renal ultrasound revealed echogenic kidneys suggestive of medical renal disease Nephrology consulted and suspect ATN precipitated by sepsis/infection Trend daily BMP Metabolic encephalopathy, resolved Confusion likely secondary to infection - resolved Head CT without acute abnormality Abdomen CT showed possible enteritis but patient does not have d/d of enteritis; possible cystitis but urine culture negative Possible community-acquired pneumonia Chest x-ray showed possible pneumonia Patient denies s/s of PNA On RA with sats >90% Discontinue doxycycline Factor V Leiden Hx DVT INR 3.3 today Coumadin on hold Trend PT/INR daily Hypothyroidism Continue levothyroxine ELAN not on CPAP Not currently on oxygen or CPAP at bedtime HTN Lasix on hold due to KASHIF BPs stable Chronic pain syndrome Depression Continue Wellbutrin and duloxetine DVT Prophylaxis: on Coumadin Code Status: FULL CODE PCP: Krzysztof Pickering Disposition: cannot dc until KASHIF improves; PT/OT recommending dc to home with outpatient PT Patient seen in collaboration with Dr Samuel. Please see addendum. I spent a total of 45 minutes coordinating, documenting and providing care for this patient excluding time spent in the performance of separately billed services or time spent by another provider/QHP. Admission and Anticipated Discharge Date Admission Date: April 29, 2025 Supervising Physician Co-Signing Physician Notes Patient seen and examined Agree with findings and plans as detailed by Kay RAMOS Subjective Patient seen sitting up in the chair Reports a headache this morning but no other acute concerns Denies pain in her legs Denies chest pain, SOB, abdominal pain, N/V/D Notes urine is still clear Review of Systems Review of Systems: All systems reviewed & are unremarkable except as noted in Subjective Physical Exam Physical Exam: General/Psych: morbidly obese, sitting in chair, NAD, conversing easily Head: normocephalic, atraumatic Eyes: normal inspection, PERRL, conjunctivae pink ENT: external ear and nose normal, oropharynx normal Neck: normal visual inspection, trachea midline Respiratory: normal respiratory effort, lungs clear to auscultation, no wheeze/rales/rhonchi, no accessory muscle use Cardiovascular: regular rate and rhythm, no murmur/rub/gallop, no JVD Extremities: no cyanosis or clubbing, normal peripheral pulses, 2+ BLE edema Abdomen/GI: normal bowel sounds, soft, nontender Neurologic/MSK: A+Ox3, motor strength 5/5, moves all extremities Skin: chronic venous stasis skin changes noted to BLE with erythema noted LLE > RLE Results & Data Results & Data Vital Signs (Past 12 Hours) Vital Signs Temp Pulse Pulse Resp BP Pulse Ox O2 Del Method 05/03/25 07:12 36.4 C L 69 19 132/77 94 Room Air 05/03/25 02:15 36.6 C 73 18 127/78 95 Room Air 05/02/25 23:35 70 05/02/25 22:21 36.6 C 67 18 125/71 95 Room Air Laboratory Results Short CBC 05/03/25 Range/Units 06:09 WBC 5.05 (4.8-10.8) K/ul Hgb 12.2 (12.0-16.0) g/dl Hct 37.4 (37.0-47.0) % Plt Count 166 (130-400) K/uL BMP 05/03/25 06:09 Sodium 136 Potassium 3.7 Chloride 102 Carbon Dioxide 26 BUN 39 H Creatinine 3.22 H Glucose 88 Calcium 8.3 L I have independently reviewed and interpreted patient's labs including CBC and BMP Medications Administered Current Inpatient Medications Bupropion HCl (Bupropion Sr 150 Mg Tabcr) 150 mg PO 1300 MICHELLE Stop: 05/30/25 12:59 Last Admin: 05/02/25 12:33 Dose: 150 mg Bupropion HCl (Bupropion Sr 150 Mg Tabcr) 300 mg PO DAILY MICHELLE Stop: 05/30/25 08:59 Last Admin: 05/02/25 08:44 Dose: 300 mg Calcium Carbonate (Calcium Carbonate 1250mg Tab) 1 tab PO DAILY MICHELLE Stop: 05/30/25 08:59 Last Admin: 05/02/25 08:45 Dose: 1 tab Duloxetine HCl (Duloxetine Hcl 60 Mg Cap) 60 mg PO DAILY MICHELLE Stop: 05/30/25 08:59 Last Admin: 05/02/25 08:44 Dose: 60 mg Fluticasone Propionate (Fluticasone Propionate Na Spr 16 Gm Btl) 2 sprays NA DAILY MICHELLE Stop: 05/30/25 08:59 Last Admin: 05/02/25 08:49 Dose: 1 sprays Cefazolin Sodium (Ancef 2000mg) 2,000 mg in 15 mls @ 3.75 mls/min IV Q12H MICHELLE Stop: 05/08/25 16:59 Last Admin: 05/03/25 05:45 Dose: 3.75 mls/min Lactobacillus Acidophilus (Advanced Probiotic 625 Mg Capsule) 1,250 mg PO DAILY MICHELLE Stop: 05/31/25 09:59 Last Admin: 05/02/25 08:47 Dose: 1,250 mg Levothyroxine Sodium (Levothyroxine Sodium 88 Mcg Tablet) 88 mcg PO DAILYBB [facility] Stop: 05/30/25 06:29 Last Admin: 05/03/25 05:43 Dose: 88 mcg Nitroglycerin (Nitroglycerin Sl 0.4 Mg/Tab Tab) 0.4 mg SL Q5M PRN PRN Reason: Chest Pain Stop: 05/29/25 22:25 Ondansetron HCl (Ondansetron Inj 2 Mg/Ml 2 Ml Vial) 4 mg IV Q6H PRN PRN Reason: Nausea And Vomiting Stop: 06/01/25 08:22 Last Admin: 05/02/25 08:49 Dose: 4 mg Oxycodone HCl (Oxycodone Hcl Ir 5 Mg Tab (Immediate Release)) 5 mg PO Q4 PRN PRN Reason: Severe Pain (Scale 7, 8, 9,10) Stop: 05/14/25 19:28 Last Admin: 05/02/25 22:06 Dose: 5 mg Pantoprazole Sodium (Pantoprazole 40 Mg Tab) 40 mg PO DAILY [facility] Stop: 05/30/25 08:59 Last Admin: 05/02/25 08:45 Dose: 40 mg Polyethylene Glycol (Polyethylene (Miralax) 17 Gm Pack) 17 gm PO DAILY PRN PRN Reason: Constipation Stop: 05/29/25 22:25 Vitamin D (Cholecalciferol 25 Mcg (1000 Units) Tab) 50 mcg PO DAILY [facility] Stop: 05/30/25 08:59 Last Admin: 05/02/25 08:44 Dose: 50 mcg Warfarin Sodium (Warfarin Sod 5 Mg Tab) 5 mg PO [id number]@1600 [facility] Stop: 05/31/25 15:59 Last Admin: 05/01/25 17:10 Dose: 5 mg Warfarin Sodium (Warfarin Sod 10 Mg Tab) 10 mg PO Hurd@1600 [facility] Stop: 05/30/25 15:59 Last Admin: 04/30/25 16:27 Dose: 10 mg
[2025-05-03] MEDS: ACETAMINOPHEN 500 MG TAB PO PRN (09:53)
--- NOTE | 2025-05-03 10:28 | Nephrology Progress Note ---
Date of Service May 03, 2025 Assessment & Plan Admission and Anticipated Discharge Date Admission Date: April 29, 2025 Subjective Assessment & Plan (1) KASHIF (acute kidney injury): Creat baseline was 0.56 just recently during previous Adx in --will count that as baseline. Adx was 1.21 and since then gone up to 1/6 then 2.47 and today 2.93--so rising consistently every day since Admission. this is despite getting IV fluid so definitely not simple vol depletion. So creat already up by x3 times qualifying as stage 3--Non oliguric type. Such consistent daily rise is almost always sec to ATN precipitated by infection/sepsis. Since creat still rising cannot tell how much worse it will get--As of now no need of dialysis and Likely wont need but cannot totally rule out. Rate of rise is very consistent. now creat 3.3. [place] noting even at 1.21 on admission she was already having rising creatinine pre admission AIN is also theoretically possible but numerically much much less common. Nothing to suggest vol depletion--if anything Imaging suggest Vol overload. she is eating and drinking fine currently. But near impossible to accurately assess her volume Status sec to Morbid obesity. NO obstruction in the imaging tests done already. (2) Cellulitis: Seems like the cause of Sepsis and Is currently on Abx through ID. Acute on chronic problem. ID recommends Abx as well as suppression Abx. Initially On dapto and Cefepime and now on Ancef alone. None of these Abx are particularly known to cause KASHIF. (3) Acute non-ST elevation myocardial infarction (NSTEMI): High trop on Adx and now trending down. (4) Hypomagnesemia: was low at 1.5 but now normal at 2.0. Will follow. S--feels fine. NO new issues. Making urine ? amount ROS----Denies any headache. Denies chest pain. Denies shortness of breath. Denies cough. Denies nausea. Denies abdominal pain. 12 Systems reviewed and is otherwise negative Patient had similar admission February 2025 ,was treated for right lower EXTR cellulitis and possible pneumonia and she improved and was discharged on Augmentin and doxycycline. Physical Exam Physical Exam: General- Awake and alert NO resp Distress HENET--MM moist. Neck supple. NO JVD. Lungs- clear to auscultation no wheezing or crackles. Heart- regular rhythm; no murmur Abdomen- soft, nontender, no distension Extremities- b/l severe lower extremity edema and chronic skin changes seen. Rt > left Results & Data Vital Signs (Past 12 Hours) Vital Signs Temp Pulse Pulse Resp BP Pulse Ox O2 Del Method 05/03/25 07:12 36.4 C L 69 19 132/77 94 Room Air 05/03/25 02:15 36.6 C 73 18 127/78 95 Room Air 05/02/25 23:35 70
--- NOTE | 2025-05-04 06:47 | Hospitalist Progress Note ---
Date of Service May 04, 2025 Assessment & Plan (1) Sepsis: (2) Bilateral lower leg cellulitis: (3) KASHIF (acute kidney injury): (4) Elevated troponin: (5) Metabolic encephalopathy: Plan Patient is a 55y/o F with PMHx significant for heterozygous MTHFR mutation, history of DVT, history of thrombophlebitis, factor V Leiden mutation anticoagulated on Coumadin, hypothyroidism, ELAN, HTN, chronic pain syndrome, history of kidney stones, depression, chronic insomnia, morbid obesity s/p partial gastrectomy, generalized osteoarthritis and other problems as outlined below who presented to the ED on 04/29/25 with complaints of confusion and BLE pain and is currently admitted with sepsis 2/2 recurrent BLE cellulitis. History of recurrent LE cellulitis - this is the 5th occurrence in the past [address] Hicks of [facility] as an outpatient on 04/08/25 whom recommended po amoxicillin BID for prophylaxis, however, patient never started taking this medication as there was a delay in the shipment of it to her home through the [facility] pharmacy mail-order service. #Sepsis 2/2 BLE cellulitis Infection seems to be slowly improving; prelim blood cultures NGTD Was initially started on IV cefepime/daptomycin --> discontinued on 05/01 ID consulted for recs regarding ABX choice/duration given recurrent nature of infection, recommended the following: * Check nasal MRSA screen = POSITIVE * IV cefazolin 2g Q8H started on 05/01 for suspected Streptococcus spp vs MSSA * Granted that the patient clinically improves on IV cefazolin, may switch cefazolin to po cephalexin 1g QID until resolution of cellulitis with anticipated EOT on 05/13/25 (for a total of 14 days) followed by long-term ABX suppression with po cefadroxil 500mg BID for at least 6 months * Will need f/u with the ID OP clinic in 2-3 months * If she does not improve on cefazolin, will need to recontact ID For now, will plan on transitioning to po cephalexin upon discharge; reeval in AM #KASHIF Cr 1.21 on 04/29 -> 2.47 on 05/01 -> 3.22 yesterday -> 3.5 today Renal US: echogenic kidneys suggestive of medical renal disease Nephrology onboard: "consistent daily rise is almost always 2/2 ATN precipitated by sepsis/infection" No need for dialysis at this time; continue to montior closely and avoid nephrotoxic agents as able Need to closely monitor urine output --> Q2H I&Os for now as Cr continues to u ptrend; pt producing urine #Elevated troponin Subsequently downtrended with peak HS-trop 73 Was likely elevated 2/2 KASHIF and demand ischemia ISO infection/sepsis #Metabolic encephalopathy Likely 2/2 above, head CT without any acute abnormalities; resolved --> mentation now at baseline CTAP showed possible enteritis but pt with no s/sx of enteritis; possible cystitis but urine culture negative #Possible community-acquired pneumonia Chest x-ray showed possible pneumonia; pt denies any s/sx of PNA Maintained on RA with O2 sats >90% --> was initially on doxycycline d/t concern for this which was discontinued on 05/01 #Factor V Leiden mutation #History of DVT INR 2.3 --> will resume Coumadin this afternoon Follow PT/INR #Hypothyroidism Continue levothyroxine #ELAN Not currently on oxygen or CPAP HS CPAP use highly encouraged #HTN BP remains stable Lasix on hold due to KASHIF --> will resume when able #Depression #Chronic pain syndrome Continue Wellbutrin, Cymbalta DVT Prophylaxis: Coumadin PCP: Krzysztof Pickering MD Disposition: Cannot discharge pt until her Cr starts to improve; PT/OT recommending discharge home with OP PT Patient seen in collaboration with Dr. Estrada. Please see addendum. I spent a total of 38 minutes coordinating, documenting, and providing care for this patient excluding time spent in the performance of separately billed ser vices or time spent by another provider/QHP. This included personally reviewing all current laboratories and imaging studies, medical reconciliation, outpatient chart review and discussion with specialists. This chart was completed in part utilizing Speech Voice Recognition Software. Grammatical errors, random word insertions, pronoun errors, and incomplete sentences are an occasional consequence of this system due to software limitations, ambient noise, and hardware issues. Any formal questions or concerns about the content, text, or information contained within the body of this dictation should be directly addressed to the provider for clarification. Admission and Anticipated Discharge Date Admission Date: April 29, 2025 Supervising Physician Co-Signing Physician Notes Patient seen and examined Agree with findings and plans as detailed by Miranda Puga PA-C Subjective Patient seen and examined in 216. Remains afebrile. NAEO. Feels pain and erythema in LLE are both improving. Denies any CP, SOB or abdominal pain. Feeling intermittent nauseous. Producing urine. Review of Systems Review of Systems: At least ten systems reviewed and negative, except as noted in the subjective section. Physical Exam Constitutional: + well hydrated and + morbidly obese (la michelle down in bed); no altered mental status Eyes: no conjunctival abnormality ENMT: Mouth: no oral mucosal abnormality (moist mucous membranes) Neck: normal visual inspection and trachea midline Respiratory: normal respiratory effort; no respiratory distress and does not use accessory muscles Auscultation: lungs clear to auscultation bilaterally Cardiovascular: Rate/Rhythm: regular rate and regular rhythm Extremities: + calf tenderness (mild TTP of LLE) and + edema (2+ BLE) Gastrointestinal (Abdomen): Inspection/Auscultation: normal bowel sounds; abdomen not distended Percussion/Palpation: abdomen soft; abdomen nontender Skin: + dry skin (chronic BLE venous stasis ch anges with erythema noted (LLE>RLE)) Neurologic: CN's II-XI intact bilaterally (grossly, not formally examined) Speech / Cognition: normal speech Motor/Sensory: normal movement (actively moves all extremities) Results & Data Results & Data Vital Signs (Past 12 Hours) Vital Signs Temp Pulse Pulse Resp BP Pulse Ox O2 Del Method 05/04/25 05:35 36.7 C 74 18 136/74 96 Room Air 05/03/25 23:09 74 05/03/25 22:30 36.9 C 70 18 139/90 96 Room Air 05/03/25 20:00 Room Air 05/03/25 19:34 36.5 C 69 18 136/78 94 Room Air Laboratory Results Short CBC 05/04/25 Range/Units 07:58 WBC 5.02 (4.8-10.8) K/ul Hgb 11.8 L (12.0-16.0) g/dl Hct 36.5 L (37.0-47.0) % Plt Count 169 (130-400) K/uL [facility] 05/04/25 07:58 Sodium 138 Potassium 3.8 Chloride 103 Carbon Dioxide 28 BUN 41 H Creatinine 3.50 H Glucose 89 Calcium 8.5 L (1) Sepsis Sepsis acute organ dysfunction status: unspecified Sepsis type: sepsis due to unspecified organism Qualified Code(s): A41.9 - Sepsis, unspecified organism
[2025-05-04] MEDS: ONDANSETRON 4 MG OD TAB PO PRN (08:13)
[2025-05-04 08:27] LABS: Hematocrit (blood only) 36.5 % (37.0-47.0); Hemoglobin 11.8 g/dl (12.0-16.0); Mean Corpuscular Hemoglobin 29.9 pg (25.0-34.0); Mean Corpuscular Volume 92.4 fL (80.0-100.0); Platelet Count 169 K/uL (130-400); RDW Standard Deviation 48.6 fL (36.4-46.3); Red Blood Count 3.95 M/uL (4.20-5.40); White Blood Count 5.02 K/ul (4.8-10.8)
[2025-05-04 08:46] LABS: Anion Gap 7.0 (3-11); Blood Urea Nitrogen 41.0 mg/dl (6-23); Calcium 8.5 mg/dl (8.6-10.3); Carbon Dioxide 28.0 mmol/L (21-32); Chloride 103.0 mmol/L (98-107); Creatinine Clr Calc Pharmacy 30.2 ml/min; Glucose 89.0 mg/dl (70-99(Fasting)); Potassium 3.8 mmol/L (3.5-5.1); Sodium 138.0 mmol/L (136-145)
[2025-05-04 08:53] LABS: INR 2.3 (0.9-1.1); Prothrombin Time 23.6 Seconds (9.0-12.0)
[2025-05-04] MEDS: AMMONIUM LACTATE 12% LOTION 225 GM BTL EXT SCH (09:42)
--- NOTE | 2025-05-04 10:57 | Nephrology Progress Note ---
Date of Service May 04, 2025 Assessment & Plan Admission and Anticipated Discharge Date Admission Date: April 29, 2025 Subjective Assessment & Plan (1) KASHIF (acute kidney injury): Creat baseline was 0.56 just recently during previous Adx in --will count that as baseline. Adx was 1.21 and since then gone up to 1/6 then 2.47 and today 2.93--so rising consistently every day since Admission. this is despite getting IV fluid so definitely not simple vol depletion. So creat already up by x3 times qualifying as stage 3--Non oliguric type. Such consistent daily rise is almost always sec to ATN precipitated by infection/sepsis. Since creat still rising cannot tell how much worse it will get--As of now no need of dialysis and Likely wont need but cannot totally rule out. Rate of rise is very consistent. now creat 3.5 [place] noting even at 1.21 on admission she was already having rising creatinine pre admission. At this rate of rise we still have 3-4 days before she gets into the range where we may need to do dialysis. Currently no lytes or acid base issue and no overt fluid overload. AIN is also theoretically possible but numerically much much less common. Nothing to suggest vol depletion--if anything Imaging suggest Vol overload. she is eating and drinking fine currently. But near impossible to accurately assess her volume Status sec to Morbid obe sity. NO obstruction in the imaging tests done already. (2) Cellulitis: Seems like the cause of Sepsis and Is currently on Abx through ID. Acute on chronic problem. ID recommends Abx as well as suppression Abx. Initially On dapto and Cefepime and now on Ancef alone. None of these Abx are particularly known to cause KASHIF. S--feels fine. NO new issues. Making urine ? amount ROS----Denies any headache. Denies chest pain. Denies shortness of breath. Denies cough. Denies nausea. Denies abdominal pain. 12 Systems reviewed and is otherwise negative Patient had similar admission February 2025 ,was treated for right lower EXTR cellulitis and possible pneumonia and she improved and was discharged on Augmentin and doxycycline. Physical Exam Physical Exam: General- Awake and alert NO resp Distress HENET--MM moist. Neck supple. NO JVD. Lungs- clear to auscultation no wheezing or crackles. Heart- regular rhythm; no murmur Abdomen- soft, nontender, no distension Extremities- b/l severe lower extremity edema and chronic skin changes seen. Rt > left Results & Data Vital Signs (Past 12 Hours) Vital Signs Temp Pulse Pulse Resp BP Pulse Ox O2 Del Method 05/04/25 07:53 36.6 C 68 14 151/87 H 96 Room Air 05/04/25 05:35 36.7 C 74 18 136/74 96 Room Air 05/03/25 23:09 74
[2025-05-05 06:42] LABS: Hematocrit (blood only) 36.5 % (37.0-47.0); Hemoglobin 11.6 g/dl (12.0-16.0); Mean Corpuscular Hemoglobin 29.1 pg (25.0-34.0); Mean Corpuscular Volume 91.7 fL (80.0-100.0); Platelet Count 187 K/uL (130-400); RDW Standard Deviation 48.2 fL (36.4-46.3); Red Blood Count 3.98 M/uL (4.20-5.40); White Blood Count 5.50 K/ul (4.8-10.8)
[2025-05-05 07:05] LABS: Anion Gap 8.0 (3-11); Blood Urea Nitrogen 41.0 mg/dl (6-23); Calcium 8.5 mg/dl (8.6-10.3); Carbon Dioxide 27.0 mmol/L (21-32); Chloride 105.0 mmol/L (98-107); Creatinine Clr Calc Pharmacy 29.6 ml/min; Glucose 111.0 mg/dl (70-99(Fasting)); Magnesium 2.0 mg/dl (1.7-2.4); Potassium 3.9 mmol/L (3.5-5.1); Sodium 140.0 mmol/L (136-145)
[2025-05-05 07:09] LABS: INR 2.0 (0.9-1.1); Prothrombin Time 20.2 Seconds (9.0-12.0)
--- NOTE | 2025-05-05 10:36 | Hospitalist Progress Note ---
Date of Service May 05, 2025 Assessment & Plan (1) Sepsis: (2) Bilateral lower leg cellulitis: (3) KASHIF (acute kidney injury): (4) Elevated troponin: (5) Metabolic encephalopathy: Plan Patient is a 55y/o F with PMHx significant for heterozygous MTHFR mutation, history of DVT, history of thrombophlebitis, factor V Leiden mutation anticoagulated on Coumadin, hypothyroidism, ELAN, HTN, chronic pain syndrome, history of kidney stones, depression, chronic insomnia, morbid obesity s/p partial gastrectomy, generalized osteoarthritis and other problems as outlined below who presented to the ED on 04/29/25 with complaints of confusion and BLE pain and is currently admitted with sepsis 2/2 recurrent BLE cellulitis. History of recurrent LE cellulitis - this is the 5th occurrence in the past [address] Patient [address] Hicks of [facility] as an outpatient on 04/08/25 whom recommended po amoxicillin BID for prophylaxis, however, patient never started taking this medication as there was a delay in the shipment of it to her home through the [facility] pharmacy mail-order service. #Sepsis 2/2 BLE cellulitis Infection slowly improving; prelim blood cultures NGTD Was initially started on IV cefepime/daptomycin --> discontinued on 05/01 ID consulted for recs regarding ABX choice/duration given recurrent nature of infection, recommended the following: * Check nasal MRSA screen = POSITIVE * IV cefazolin 2g Q8H started on 05/01 for suspected Streptococcus spp vs MSSA * Granted that the patient clinically improves on IV cefazolin, may switch cefazolin to po cephalexin 1g QID until resolution of cellulitis with anticipated EOT on 05/13/25 (for a total of 14 days) followed by long-term ABX suppression with po cefadroxil 500mg BID for at least 6 months * Will need f/u with the ID OP clinic in 2-3 months * If she does not improve on cefazolin, will need to recontact ID For now, will plan on transitioning to po cephalexin upon discharge - pt agreeable with this plan #KASHIF Cr 1.21 on 04/29 -> 2.47 on 05/01 -> 3.22 on 05/03 -> 3.5 on 05/04 -> 3.57 today Renal US: echogenic kidneys suggestive of medical renal disease Nephrology onboard: "consistent daily rise is almost always 2/2 ATN precipitated by sepsis/infection" Minimal rise in Cr overnight; ? KASHIF has peaked --> continue to monitor, cannot discharge until Cr downtrending Closely monitor urine output; pt continues to produce urine Meds reviewed for dosing based on current CrCl - pt agreeable to reducing Wellbutrin dosing from 450mg to 150mg daily #Elevated troponin Subsequently downtrended with peak HS-trop 73 Likely elevated 2/2 KASHIF and demand ischemia ISO infection/sepsis #Metabolic encephalopathy Likely 2/2 above, head CT without any acute abnormalities; resolved --> mentation now at baseline CTAP showed possible enteritis but pt with no s/sx of enteritis; possible cystitis but urine culture negative #Possible community-acquired pneumonia Chest x-ray showed possible pneumonia; pt denies any s/sx of PNA Maintained on RA with O2 sats >90% --> was initially on doxycycline d/t concern for this which was discontinued on 05/01 #Factor V Leiden mutation #History of DVT INR 2 today, continue Coumadin Follow PT/INR #Hypothyroidism Continue levothyroxine #ELAN Not currently on oxygen or CPAP HS CPAP use highly encouraged #HTN BP remains stable Lasix on hold due to KASHIF --> will resume when able #Depression #Chronic pain syndrome Continue Wellbutrin, Cymbalta DVT Prophylaxis: Coumadin PCP: Krzysztof Pickering MD Disposition: Cannot discharge pt until her Cr starts to improve; PT/OT recommending discharge home with OP PT --> arranged with CM Patient seen in collaboration with Dr. Estrada. Please see addendum. I spent a total of 30 minutes coordinating, documenting, and providing care for this patient excluding time spent in the performance of separately billed services or time spent by another provider/QHP. This included personally reviewing all current laboratories and imaging studies, medical reconciliation, outpatient chart review and discussion with specialists. This chart was completed in part utilizing Speech Voice Recognition Software. Grammatical errors, random word insertions, pronoun errors, and incomplete sentences are an occasional consequence of this system due to software limitations, ambient noise, and hardware issues. Any formal questions or concerns about the content, text, or information contained within the body of this dictation should be directly addressed to the provider for clarification. Admission and Anticipated Discharge Date Admission Date: April 29, 2025 Subjective Patient seen and examined in room 216. NAEO. Nausea improving. Pain and erythema in BLE continue to improve. Eager to get home once renal function improved. Denies any chest pain or SOB. Review of Systems Review of Systems: At least ten systems reviewed and negative, except as noted in the subjective section. Physical Exam Constitutional: + well hydrated and + morbidly obese (la michelle down in bed); no altered mental status Eyes: no conjunctival abnormality ENMT: Mouth: no oral mucosal abnormality (moist mucous membranes) Neck: normal visual inspection and trachea midline Respiratory: normal respiratory effort; no respiratory distress and does not use accessory muscles Auscultation: lungs clear to auscultation bilaterally Cardiovascular: Rate/Rhythm: regular rate and regular rhythm Extremities: + edema (1-2+ BLE); no calf tenderness Gastrointestinal (Abdomen): Inspection/Auscultation: normal bowel sounds; abdomen not distended Percussion/Palpation: abdomen soft; abdomen nontender Skin: + dry skin (chronic BLE venous stasis ch anges) and + erythema (noted on BLE, LLE>RLE) Neurologic: CN's II-XI intact bilaterally (grossly, not formally examined) Speech / Cognition: normal speech Motor/Sensory: normal movement (actively moves all extremities) Psychiatric: A+Ox3, euthymic affect Results & Data Results & Data Vital Signs (Past 12 Hours) Vital Signs Temp Pulse Pulse Resp BP Pulse Ox O2 Del Method 05/05/25 08:04 36.7 C 75 20 138/76 Room Air 05/05/25 08:00 73 05/05/25 03:04 36.9 C 77 18 135/62 91 Room Air 05/05/25 00:00 80 Laboratory Results Short CBC 05/05/25 Range/Units 06:07 WBC 5.50 (4.8-10.8) K/ul Hgb 11.6 L (12.0-16.0) g/dl Hct 36.5 L (37.0-47.0) % Plt Count 187 (130-400) K/uL BMP 05/05/25 06:07 Sodium 140 Potassium 3.9 Chloride 105 Carbon Dioxide 27 BUN 41 H Creatinine 3.57 H Glucose 111 H Calcium 8.5 L (1) Sepsis Sepsis acute organ dysfunction status: unspecified Sepsis type: sepsis due to unspecified organism Qualified Code(s): A41.9 - Sepsis, unspecified organism
--- NOTE | 2025-05-05 11:09 | Nephrology Progress Note ---
Date of Service May 05, 2025 Assessment & Plan Admission and Anticipated Discharge Date Admission Date: April 29, 2025 Subjective Assessment & Plan (1) KASHIF (acute kidney injury): Creat baseline was 0.56 just recently during previous Adx in --will count that as baseline. Adx creat was 1.21 and since then gone up to 1/6 then 2.47 and today 2.93--so rising consistently every day since Admission. this is despite getting IV fluid so definitely not simple vol depletion. So creat already up by x3 times qualifying as stage 3--Non oliguric type. Such consistent daily rise is almost always sec to ATN precipitated by infection/sepsis. Since creat still rising cannot tell how much worse it will get--As of now no need of dialysis and Likely wont need but cannot totally rule out. Rate of rise is very consistent. now creat 3.57. [place] noting even at 1.21 on admission she was already having rising creatinine pre admission. Overnight rate of rise of creat was very minimal 3.51 to 3.57--so somewhat hopeful that maybe KASHIF has peaked. Will like to see ideally Creat trending down before Discharge Currently no lytes or acid base issue and no overt fluid overload. AIN is also theoretically possible but numerically much much less common. Nothing to suggest vol depletion--if anything Imaging suggest Vol overload. she is eating and drinking fine currently. But near impossible to accurately assess her volume Status sec to Morbid obesity. NO obstruction in the imaging tests done already. (2) Cellulitis: Seems like the cause of Sepsis and Is currently on Abx through ID. Acute on chronic problem. ID recommends Abx as well as suppression Abx. Initially On dapto and Cefepime and now on Ancef alone. None of these Abx are particularly known to cause KASHIF. S--feels fine. NO new issues. Making urine ? amount ROS----Denies any headache. Denies chest pain. Denies shortness of breath. Denies cough. Denies nausea. Denies abdominal pain. 12 Systems reviewed and is otherwise negative Patient had similar admission February 2025 ,was treated for right lower EXTR cellulitis and possible pneumonia and she improved and was discharged on Augmentin and doxycycline. Physical Exam Physical Exam: General- Awake and alert NO resp Distress HENET--MM moist. Neck supple. NO JVD. Lungs- clear to auscultation no wheezing or crackles. Heart- regular rhythm; no murmur Abdomen- soft, nontender, no distension Extremities- b/l severe lower extremity edema and chronic skin changes seen. Rt > left Results & Data Vital Signs (Past 12 Hours) Vital Signs Temp Pulse Pulse Resp BP Pulse Ox O2 Del Method 05/05/25 08:04 36.7 C 75 20 138/76 Room Air 05/05/25 08:00 73 05/05/25 03:04 36.9 C 77 18 135/62 91 Room Air 05/05/25 00:00 80
[2025-05-06 06:49] LABS: Hematocrit (blood only) 36.4 % (37.0-47.0); Hemoglobin 11.8 g/dl (12.0-16.0); Mean Corpuscular Hemoglobin 29.8 pg (25.0-34.0); Mean Corpuscular Volume 91.9 fL (80.0-100.0); Platelet Count 218 K/uL (130-400); RDW Standard Deviation 48.0 fL (36.4-46.3); Red Blood Count 3.96 M/uL (4.20-5.40); White Blood Count 6.02 K/ul (4.8-10.8)
[2025-05-06 07:35] LABS: Anion Gap 5.0 (3-11); Calcium 8.7 mg/dl (8.6-10.3); Carbon Dioxide 30.0 mmol/L (21-32); Chloride 105.0 mmol/L (98-107); Magnesium 2.0 mg/dl (1.7-2.4); Potassium 4.1 mmol/L (3.5-5.1); Sodium 140.0 mmol/L (136-145)
[2025-05-06 07:41] LABS: Blood Urea Nitrogen 41.0 mg/dl (6-23); Creatinine Clr Calc Pharmacy 29.9 ml/min; Glucose 100.0 mg/dl (70-99(Fasting))
[2025-05-06 08:57] LABS: INR 1.9 (0.9-1.1); Prothrombin Time 19.9 Seconds (9.0-12.0)
--- NOTE | 2025-05-06 09:28 | Hospitalist Progress Note ---
Date of Service May 06, 2025 Assessment & Plan (1) Sepsis: (2) Bilateral lower leg cellulitis: (3) KASHIF (acute kidney injury): (4) Elevated troponin: (5) Metabolic encephalopathy: Plan Patient is a 55y/o F with PMHx significant for heterozygous MTHFR mutation, history of DVT, history of thrombophlebitis, factor V Leiden mutation anticoagulated on Coumadin, hypothyroidism, ELAN, HTN, chronic pain syndrome, history of kidney stones, depression, chronic insomnia, morbid obesity s/p partial gastrectomy, generalized osteoarthritis and other problems as outlined below who presented to the ED on 04/29/25 with complaints of confusion and BLE pain and is currently admitted with sepsis 2/2 recurrent BLE cellulitis. History of recurrent LE cellulitis - this is the 5th occurrence in the past [address] Hicks of [facility] as an outpatient on 04/08/25 whom recommended po amoxicillin BID for prophylaxis, however, patient never started taking this medication as there was a delay in the shipment of it to her home through the [facility] pharmacy mail-order service. Sepsis Metabolic encephalopathy (resolved) Left lower extremity cellulitis Leukocytosis, fevers, elevated procalcitonin all indicative of sepsis Initially started on IV cefepime/Daptodiscontinued on 05/01 Continue IV cefazolin while in house; plan for cephalexin 1 g 4 times daily until resolution of cellulitis, end date 05/13/25-14 days in total Continue with long-term antibiotic suppression with p.o. cefadroxil 500 mg twice daily for at least 6 months Plan for outpatient follow-up with ID clinic in 2-3 months Acute kidney injuryATN secondary to sepsis Underlying CKDstage IIInonoliguric type: KASHIF likely secondary to sepsis, troponin trending down, likely secondary to KASHIF Hold Lasix, avoid nephrotoxic agents, trend daily BMP Creatinine peaked at 3.57 on 05/05, trending down today at 3.54 Renal ultrasound suggestive of medical renal disease Nephrology following, medications renally dosed. Factor V Leiden Hx DVT: Continue home Coumadin dosing and daily INR monitoring Hx hypothyroidism: Continue levothyroxine Hx ELAN not on CPAP: Not currently on oxygen or CPAP at bedtime CPAP use highly encouraged Hx HTN: BP remains stable, Lasix on hold due to KASHIF Hx chronic pain syndrome Hx depression Continue Wellbutrin, Cymbalta A total of 40 minutes were spent on chart review/reviewing diagnostic data/facilitating plan of care DVT prophylaxis: Coumadin Full code Disposition: Creatinine is slowly trending down, home care with outpatient PT recommended on DC, arranged with case management. Anticipate another 48 hours of hospitalization Admission and Anticipated Discharge Date Admission Date: April 29, 2025 Subjective Pt seen and examined; reports feeling better today; denies any chest pain or sob overnight; denies any abdominal pain. Review of Systems Review of Systems: All systems reviewed & are unremarkable except as noted in HPI & below Physical Exam Constitutional: WD/WN, vitals as above Eyes: PERRL, conjunctivae normal, anicteric sclerae ENMT: external ear and nose normal, oropharynx normal Neck: trachea midline, no thyromegaly Respiratory: normal respiratory effort, lungs clear to auscultation Cardiovascular: RRR, no murmur, no edema (+3 b/l edema ) Gastrointestinal (Abdomen): normal bowel sounds, soft, nontender, no hepatosplenomegaly Musculoskeletal: no cyanosis or clubbing, extremities motor strength 5/5 Skin: no rashes, warm and dry Neurologic: PERRL, EOMI, accommodation nl, no face palsy, no dysarthria Psychiatric: A+Ox3, euthymic affect Lymphatic: no cervical or axillary lymphadenopathy Results & Data Results & Data Vital Signs (Past 12 Hours) Vital Signs Temp Pulse Pulse Resp BP BP Pulse Ox 05/06/25 07:09 36.7 C 72 173/90 H 92 05/05/25 22:56 36.7 C 74 18 150/66 H 91 05/05/25 22:46 71 O2 Del Method 05/06/25 07:09 Room Air 05/05/25 22:56 Room Air 05/05/25 22:46 Diagnostic Findings Laboratory Results WBC 6.02 K/ul (4.8-10.8) 05/06/25 06:11 RBC 3.96 M/uL (4.20-5.40) L 05/06/25 06:11 Hgb 11.8 g/dl (12.0-16.0) L 05/06/25 06:11 Hct 36.4 % (37.0-47.0) L 05/06/25 06:11 MCV 91.9 fL (80.0-100.0) 05/06/25 06:11 MCH 29.8 pg (25.0-34.0) 05/06/25 06:11 MCHC 32.4 g/dL (32.0-36.0) 05/06/25 06:11 RDW Std Deviation 48.0 fL (36.4-46.3) H 05/06/25 06:11 RDW Coeff of Deandre 14.2 % (11.5-14.5) 05/06/25 06:11 Plt Count 218 K/uL (130-400) 05/06/25 06:11 MPV 9.8 fL (9.4-12.4) 05/06/25 06:11 Immature Gran % (Auto) 0.4 % 05/01/25 08:46 Neut % (Auto) 70.4 % 05/01/25 08:46 Lymph % (Auto) 11.8 % 05/01/25 08:46 Duchesne % (Auto) 14.3 % 05/01/25 08:46 Eos % (Auto) 2.7 % 05/01/25 08:46 Baso % (Auto) 0.4 % 05/01/25 08:46 Neut # (Auto) 3.45 K/uL (1.40-6.50) 05/01/25 08:46 Lymph # (Auto) 0.58 K/uL (1.20-3.40) L 05/01/25 08:46 Duchesne # (Auto) 0.70 K/uL (0.11-0.59) H 05/01/25 08:46 Eos # (Auto) 0.13 K/uL (0.00-0.50) 05/01/25 08:46 Baso # (Auto) 0.02 K/uL (0.00-0.20) 05/01/25 08:46 Immature Gran # (Auto) 0.02 K/uL (0.01-0.20) 05/01/25 08:46 PT 19.9 Seconds (9.0-12.0) H 05/06/25 06:11 INR 1.9 (0.9-1.1) H 05/06/25 06:11 VBG pH 7.42 (7.36-7.41) H 04/30/25 07:29 VBG pCO2 44 mmHg (38-50) 04/30/25 07:29 VBG pO2 55 mmHg 04/30/25 07:29 VBG HCO3 29 mmol/L 04/30/25 07:29 VBG O2 Saturation 88.6 % 04/30/25 07:29 VBG Base Excess 3.5 mEq/L 04/30/25 07:29 Sodium 140 mmol/L (136-145) 05/06/25 06:11 Potassium 4.1 mmol/L (3.5-5.1) 05/06/25 06:11 Chloride 105 mmol/L (98-107) 05/06/25 06:11 Carbon Dioxide 30 mmol/L (21-32) 05/06/25 06:11 Anion Gap 5 (3-11) 05/06/25 06:11 BUN 41 mg/dl (6-23) H 05/06/25 06:11 Creatinine 3.54 mg/dl (0.6-1.2) H 05/06/25 06:11 Est Cr Clr Drug Dosing 29.9 ml/min 05/06/25 06:11 eGFR 14.41 05/06/25 06:11 BUN/Creatinine Ratio 11.6 (10-20) 05/06/25 06:11 Glucose 100 mg/dl (70-99(Fasting)) H 05/06/25 06:11 Lactate 0.9 mmol/L (0.4-2.0) 04/29/25 16:32 Calcium 8.7 mg/dl (8.6-10.3) 05/06/25 06:11 Phosphorus 3.8 mg/dl (2.5-4.9) 05/02/25 06:22 Magnesium 2.0 mg/dl (1.7-2.4) 05/06/25 06:11 Total Bilirubin 0.4 mg/dl (0.2-1.0) 05/01/25 08:46 Direct Bilirubin 0.2 mg/dl (0-0.2) 04/29/25 16:32 AST 30 U/L (13-39) 05/01/25 08:46 ALT 13 U/L (7-52) 05/01/25 08:46 Alkaline Phosphatase 54 U/L (34-104) 05/01/25 08:46 Total Creatine Kinase 63 U/L (26-192) 04/29/25 16:32 Troponin I High Sens 32.5 pg/ml (0-14) H D 04/30/25 17:00 Total Protein 6.1 gm/dl (6.0-8.3) 05/01/25 08:46 Albumin 2.8 gm/dl (3.4-5.0) L 05/01/25 08:46 Globulin 3.3 gm/dl (2.5-4.0) 05/01/25 08:46 Albumin/Globulin Ratio 0.8 (0.9-2) L 05/01/25 08:46 Procalcitonin 3.52 ng/ml (0-0.5) H 04/29/25 16:32 Urine Color Yellow 05/01/25 Unknown Urine Appearance Turbid (Clear) A 05/01/25 Unknown Urine pH 5.0 (4.5-7.5) 05/01/25 Unknown Ur Specific Odin 1.017 (1.000-1.030) 05/01/25 Unknown Urine Protein 2+ (Negative) H 05/01/25 Unknown Urine Glucose (UA) Negative (Negative) 05/01/25 Unknown Urine Ketones Trace (Negative) H 05/01/25 Unknown Urine Blood 3+ (Negative) H 05/01/25 Unknown Urine Nitrite Negative (Negative) 05/01/25 Unknown Urine Bilirubin Negative (Negative) 05/01/25 Unknown Urine Urobilinogen Negative (Negative) 05/01/25 Unknown Ur Leukocyte Esterase Trace (Negative) H 05/01/25 Unknown Urine WBC (Auto) 6-10 /hpf (0-5) H 05/01/25 Unknown Urine RBC (Auto) >20 /hpf (0-2) H 05/01/25 Unknown U Hyaline Cast (Auto) 6-10 /lpf (0-2) H 05/01/25 Unknown U Epithel Cells (Auto) 3-5 /hpf (0-2) H 05/01/25 Unknown Urine Bacteria (Auto) None Seen (None Seen) 05/01/25 Unknown Urine RBC >20 /hpf (0-2) H 04/29/25 19:22 Urine WBC 21-50 /hpf (0-5) H 04/29/25 19:22 Ur Epithelial Cells 11-20 /hpf (0-2) H 04/29/25 19:22 Amorphous Sediment Present (None Prsent) A 05/01/25 Unknown Urine Bacteria 1+ (None Seen) H 04/29/25 19:22 Granular Casts P /lpf (None Prsent) 04/29/25 19:22 Urine Comment 05/01/25 Unknown Nasal Screen MRSA (PCR) Positive (Negative) A 05/01/[address] 04/29/25 16:18 Exam(s): CT HEAD Without Contrast EXAM: CT Head Without Intravenous Contrast CLINICAL HISTORY: Reason for exam: AMS, fever. TECHNIQUE: Axial computed tomography images of the head/brain without intravenous contrast. CTDI is 35.92 mGy and DLP is 624.41 mGy-cm. Automated exposure control was utilized for the study. A dose lowering technique was utilized adhering to the principles of ALARA. COMPARISON: CT head on 02/22/2025 FINDINGS: Brain: No acute infarct or hemorrhage. No extra-axial fluid collection. No mass effect or midline shift. Ventricles and sulci: Normal. No ventriculomegaly or intraventricular hemorrhage. Bones: Old fracture deformity of the left lamina papyracea. No bony lesion or acute fracture. Subcutaneous tissues: Normal. Sinuses: Normal. No air-fluid levels or mucosal thickening. Mastoid air cells: Normal. Orbits: Grossly unremarkable. IMPRESSION: No acute intracranial abnormality. Further evaluation could be performed with MRI if clinically indicated. Electronically signed by: Isak Cintron M.D. 04/30/25 21:45 PM Chest X-Ray 04/29/25 16:19 Chest radiograph, one view History: Sepsis Comparison: February 20, 2025 Findings: Single AP view of the chest performed. Perihilar opacities. Blunted left costophrenic angle is seen, with a small pleural effusion not excluded. No pneumothorax. The cardiomediastinal silhouette is within normal limits. Indistinct pulmonary vascularity. No evidence for lymphadenopathy. No visualized bony or soft tissue abnormality. Impression: Bilateral perihilar opacity with indistinct pulmonary vasculature suggesting pulmonary edema. Underlying infection also is not excluded. Electronically signed by Stanford Layton 04-29-2025 6:34 PM Abdomen/Pelvis CT 04/29/25 22:26 Exam(s): CT ABDOMEN + PELVIS Without Contrast EXAM: CT Abdomen and Pelvis Without Intravenous Contrast CLINICAL HISTORY: Reason for exam: uti, sepsi,, hx of kidney stones. TECHNIQUE: Axial computed tomography images of the abdomen and pelvis without intravenous contrast. CTDI is 34.37 mGy and DLP is 2261.59 mGy-cm. Automated exposure control was utilized for the study. A dose lowering technique was utilized adhering to the principles of ALARA. COMPARISON: CT abdomen/pelvis on 02/20/2025 FINDINGS: Lung bases: Please see accompanying CT chest for further details. ABDOMEN: Liver: Mild hepatomegaly. Gallbladder and bile ducts: Unremarkable. No calcified stones. No ductal dilation. Pancreas: Unremarkable. No ductal dilation. Spleen: Borderline size of the spleen. Adrenals: Unremarkable. No mass. Kidneys and ureters: Unremarkable. No hydronephrosis or obstructing ureteral stone. Stomach and bowel: Fluid and gas filled small bowel loops may represent enteritis in the appropriate clinical setting. Gastric sleeve changes. Evaluation of the stomach is limited by underdistention. PELVIS: Appendix: No findings to suggest acute appendicitis. Bladder: Underdistended bladder limits evaluation. Please correlate with urinalysis if concerned for cystitis. No stones. Reproductive: Unremarkable as visualized. ABDOMEN and PELVIS: Intraperitoneal space: Unremarkable. No free air. No significant fluid collection. Bones/joints: Grade 1 anterolisthesis of L4 on L5. Degenerative changes of the spine. No acute fracture. No dislocation. Soft tissues: Small fat containing umbilical hernia. Vasculature: Unremarkable. No abdominal aortic aneurysm. Lymph nodes: Nonspecific mildly prominent inguinal and retroperitoneal lymph nodes. IMPRESSION: 1. Fluid and gas filled small bowel loops may represent enteritis in the appropriate clinical setting. 2. Underdistended bladder limits evaluation. Please correlate with urinalysis if concerned for cystitis. Electronically signed by: Isak Cintron M.D. 04/30/25 21:[address] 04/29/25 22:26 Exam(s): CT CHEST Without Contrast EXAM: CT Chest Without Intravenous Contrast CLINICAL HISTORY: Reason for exam: pneumonia? on cxr. TECHNIQUE: Axial computed tomography images of the chest without intravenous contrast. CTDI is 34.37 mGy and DLP is 2261.59 mGy-cm. Automated exposure control was utilized for the study. A dose lowering technique was utilized adhering to the principles of ALARA. COMPARISON: CT chest on 02/20/2025 FINDINGS: Lungs: Mosaic pattern of attenuation in the lungs could be secondary to air trapping versus infectious/inflammatory process or edema. Mild dependent atelectasis bilaterally. No mass. Pleural space: Trace bilateral pleural effusions. No pneumothorax. Heart: Small pericardial effusion. Mild coronary artery and mitral annular calcifications. No cardiomegaly. Mediastinum: Small hiatal hernia. Bones/joints: Degenerative changes of the spine. No acute fracture. Soft tissues: Unremarkable. Vasculature: See above. Lymph nodes: Unremarkable. No enlarged lymph nodes. Stomach and bowel: Postsurgical changes of the stomach. IMPRESSION: 1. Mosaic pattern of attenuation in the lungs could be secondary to air trapping versus infectious/inflammatory process or edema. 2. Trace bilateral pleural effusions. Electronically signed by: Isak Cintron M.D. 04/30/25 21:32 PM Renal Ultrasound 05/02/25 08:11 RENAL ULTRASOUND CLINICAL HISTORY: worsening KASHIF COMPARISON STUDY: Right upper quadrant ultrasound July 31, 2023. CT of the abdomen and pelvis April 30, 2025. TECHNIQUE: Sonography of the kidneys and the urinary bladder was performed. FINDINGS: The right kidney measures 12 cm in maximal dimension and the left measures 12.3 cm. The kidneys are echogenic. This exam is compromised by suboptimal penetration but there is no hydronephrosis. No renal mass is identified. Ureteral jets were not visualized. IMPRESSION: 1. No hydronephrosis. 2. Echogenic kidneys suggestive of medical renal disease. ACT 112: Negative or not required by law. Electronically signed by: Angel Hernandez M.D. 05/02/2025 11:50 AM (1) Sepsis Sepsis acute organ dysfunction status: unspecified Sepsis type: sepsis due to unspecified organism Qualified Code(s): A41.9 - Sepsis, unspecified organism
--- NOTE | 2025-05-06 11:15 | Nephrology Progress Note ---
Date of Service May 06, 2025 Assessment & Plan Admission and Anticipated Discharge Date Admission Date: April 29, 2025 Subjective Assessment & Plan (1) KASHIF (acute kidney injury): Creat baseline was 0.56 just recently during previous Adx in --will count that as baseline. Adx creat was 1.21 and since then gone up to 1/6 then 2.47 and peaked at 3.57--so rising consistently every day since Admission. this was despite getting IV fluid so definitely not simple vol depletion. So creat already up by x3 times qualifying as stage 3--Non oliguric type. Such consistent daily rise is almost always sec to ATN precipitated by infection/sepsis. Since creat still rising cannot tell how much worse it will get--As of now no need of dialysis and Likely wont need but cannot totally rule out. Rate of rise is very consistent. now creat 3.57. Blount noting even at 1.21 on admission she was already having rising creatinine pre admission. for the first time in many days creat did not go up Overnight. Infact slight drop to 3.54. so somewhat hopeful that KASHIF has peaked. Will like to see ideally Creat trending down before Discharge. would like to see somewhat more prominent drop in creat before discharge Currently no lytes or acid base issue and no overt fluid overload. AIN is also theoretically possible but numerically much much less common. Nothing to suggest vol depletion--if anything Imaging suggest Vol overload. she is eating and drinking fine currently. But near impossible to accurately assess her volume Status sec to Morbid obe sity. NO obstruction in the imaging tests done already. S--feels fine. NO new issues. Making urine ? amount ROS----Denies any headache. Denies chest pain. Denies shortness of breath. Denies cough. Denies nausea. Denies abdominal pain. 12 Systems reviewed and is otherwise negative Patient had similar admission February 2025 ,was treated for right lower EXTR cellulitis and possible pneumonia and she improved and was discharged on Augmentin and doxycycline. Physical Exam Physical Exam: General- Awake and alert NO resp Distress HENET--MM moist. Neck supple. NO JVD. Lungs- clear to auscultation no wheezing or crackles. Heart- regular rhythm; no murmur Abdomen- soft, nontender, no distension Extremities- b/l severe lower extremity edema and chronic skin changes seen. Rt > left Results & Data Vital Signs (Past 12 Hours) Vital Signs Temp Pulse Pulse BP Pulse Ox O2 Del Method 05/06/25 08:00 66 05/06/25 07:09 36.7 C 72 173/90 H 92 Room Air
[2025-05-07 07:07] LABS: Hematocrit (blood only) 36.7 % (37.0-47.0); Hemoglobin 11.5 g/dl (12.0-16.0); Immature Granulocytes # (auto) 0.08 K/uL (0.01-0.20); Immature Granulocytes % (auto) 1.2 %; Mean Corpuscular Hemoglobin 29.0 pg (25.0-34.0); Mean Corpuscular Volume 92.7 fL (80.0-100.0); Platelet Count 226 K/uL (130-400); RDW Standard Deviation 47.8 fL (36.4-46.3); Red Blood Count 3.96 M/uL (4.20-5.40); White Blood Count 6.42 K/ul (4.8-10.8)
[2025-05-07 07:26] LABS: Anion Gap 6 (3-11); Blood Urea Nitrogen 42 mg/dl (6-23); Calcium 8.5 mg/dl (8.6-10.3); Carbon Dioxide 28 mmol/L (21-32); Chloride 106 mmol/L (98-107); Creatinine Clr Calc Pharmacy 31.4 ml/min; Glucose 105 mg/dl (70-99(Fasting)); Potassium 4.0 mmol/L (3.5-5.1); Sodium 140 mmol/L (136-145)
[2025-05-07 07:27] LABS: Alanine Aminotransferase < 3 U/L (7-52); Albumin Globulin Ratio 0.9 (0.9-2); Alkaline Phosphatase 57 U/L (34-104); Bilirubin,Total 0.3 mg/dl (0.2-1.0); Globulin 3.3 gm/dl (2.5-4.0); Total Protein 6.3 gm/dl (6.0-8.3)
[2025-05-07 07:57] VITALS: RESP 18
--- NOTE | 2025-05-07 10:48 | Hospitalist Progress Note ---
Date of Service May 07, 2025 Assessment & Plan (1) Sepsis: (2) Bilateral lower leg cellulitis: (3) KASHIF (acute kidney injury): (4) Elevated troponin: (5) Metabolic encephalopathy: Plan Patient is a 55y/o F with PMHx significant for heterozygous MTHFR mutation, history of DVT, history of thrombophlebitis, factor V Leiden mutation anticoagulated on Coumadin, hypothyroidism, ELAN, HTN, chronic pain syndrome, history of kidney stones, depression, chronic insomnia, morbid obesity s/p partial gastrectomy, generalized osteoarthritis and other problems as outlined below who presented to the ED on 04/29/25 with complaints of confusion and BLE pain and is currently admitted with sepsis 2/2 recurrent BLE cellulitis. History of recurrent LE cellulitis - this is the 5th occurrence in the past [address] Hicks of [facility] as an outpatient on 04/08/25 whom recommended po amoxicillin BID for prophylaxis, however, patient never started taking this medication as there was a delay in the shipment of it to her home through the [facility] pharmacy mail-order service. Sepsis Metabolic encephalopathy (resolved) Left lower extremity cellulitis Leukocytosis, fevers, elevated procalcitonin all indicative of sepsis Initially started on IV cefepime/Daptodiscontinued on 05/01 Continue IV cefazolin while in house; plan for cephalexin 1 g 4 times daily until resolution of cellulitis, end date 05/13/25-14 days in total Continue with long-term antibiotic suppression with p.o. cefadroxil 500 mg twice daily for at least 6 months Plan for outpatient follow-up with ID clinic in 2-3 months Acute kidney injuryATN secondary to sepsis Underlying CKDstage IIInonoliguric type: KASHIF likely secondary to sepsis, troponin trending down, likely secondary to KASHIF Hold Lasix, avoid nephrotoxic agents, trend daily BMP Creatinine peaked at 3.57 on 05/05, trending down today at 3.34 Renal ultrasound suggestive of medical renal disease Nephrology following, medications renally dosed. Nephrology would like creatinine less than 3 on discharge Factor V Leiden Hx DVT: Continue home Coumadin dosing and daily INR monitoring Hx hypothyroidism: Continue levothyroxine Hx ELAN not on CPAP: Not currently on oxygen or CPAP at bedtime CPAP use highly encouraged Hx HTN: BP remains stable, Lasix on hold due to KASHIF Hx chronic pain syndrome Hx depression Continue Wellbutrin, Cymbalta A total of 30 minutes were spent on chart review/reviewing diagnostic data/facilitating plan of care DVT prophylaxis: Coumadin Full code Disposition: Creatinine is slowly trending down, home care with outpatient PT recommended on DC, arranged with case management. Anticipate another 48 hours of hospitalization Admission and Anticipated Discharge Date Admission Date: April 29, 2025 Subjective Patient seen and examined. No apparent distress. Anxious for discharge. Denies any chest pain/shortness of breath. Denies any abdominal pain/nausea/vomiting/diarrhea Review of Systems Review of Systems: All systems reviewed & are unremarkable except as noted in HPI & below Physical Exam Constitutional: WD/WN, vitals as above + ill appearing Eyes: PERRL, conjunctivae normal, anicteric sclerae ENMT: external ear and nose normal, oropharynx normal Neck: trachea midline, no thyromegaly Respiratory: normal respiratory effort, lungs clear to auscultation Cardiovascular: RRR, no murmur, no edema (+3 b/l edema ) Gastrointestinal (Abdomen): normal bowel sounds, soft, nontender, no hepatosplenomegaly Musculoskeletal: no cyanosis or clubbing, extremities motor strength 5/5 Skin: no rashes, warm and dry Neurologic: PERRL, EOMI, accommodation nl, no face palsy, no dysarthria Psychiatric: A+Ox3, euthymic affect Lymphatic: no cervical or axillary lymphadenopathy Results & Data Results & Data Vital Signs (Past 12 Hours) Vital Signs Temp Pulse Pulse Resp BP BP Pulse Ox 05/07/25 07:53 36.2 C L 72 18 154/68 H 92 05/07/25 07:22 75 05/07/25 05:25 168/74 H 05/07/25 03:07 36.8 C 77 21 168/91 H 93 05/06/25 23:54 76 05/06/25 23:10 36.8 C 72 16 170/77 H 96 O2 Del Method 05/07/25 07:53 Room Air 05/07/25 07:22 05/07/25 05:25 05/07/25 03:07 Room Air 05/06/25 23:54 05/06/25 23:10 Room Air Diagnostic Findings Laboratory Results WBC 6.42 K/ul (4.8-10.8) 05/07/25 06:52 RBC 3.96 M/uL (4.20-5.40) L 05/07/25 06:52 Hgb 11.5 g/dl (12.0-16.0) L 05/07/25 06:52 Hct 36.7 % (37.0-47.0) L 05/07/25 06:52 MCV 92.7 fL (80.0-100.0) 05/07/25 06:52 MCH 29.0 pg (25.0-34.0) 05/07/25 06:52 MCHC 31.3 g/dL (32.0-36.0) L 05/07/25 06:52 RDW Std Deviation 47.8 fL (36.4-46.3) H 05/07/25 06:52 RDW Coeff of Deandre 14.1 % (11.5-14.5) 05/07/25 06:52 Plt Count 226 K/uL (130-400) 05/07/25 06:52 MPV 10.0 fL (9.4-12.4) 05/07/25 06:52 Immature Gran % (Auto) 1.2 % 05/07/25 06:52 Neut % (Auto) 58.4 % 05/07/25 06:52 Lymph % (Auto) 20.9 % 05/07/25 06:52 [place] % (Auto) 14.3 % 05/07/25 06:52 Eos % (Auto) 4.7 % 05/07/25 06:52 Baso % (Auto) 0.5 % 05/07/25 06:52 Neut # (Auto) 3.75 K/uL (1.40-6.50) 05/07/25 06:52 Lymph # (Auto) 1.34 K/uL (1.20-3.40) 05/07/25 06:52 [place] # (Auto) 0.92 K/uL (0.11-0.59) H 05/07/25 06:52 Eos # (Auto) 0.30 K/uL (0.00-0.50) 05/07/25 06:52 Baso # (Auto) 0.03 K/uL (0.00-0.20) 05/07/25 06:52 Immature Gran # (Auto) 0.08 K/uL (0.01-0.20) 05/07/25 06:52 PT 19.9 Seconds (9.0-12.0) H 05/06/25 06:11 INR 1.9 (0.9-1.1) H 05/06/25 06:11 VBG pH 7.42 (7.36-7.41) H 04/30/25 07:29 VBG pCO2 44 mmHg (38-50) 04/30/25 07: VBG pO2 55 mmHg 04/30/25 07: VBG HCO3 29 mmol/L 04/30/25 07: VBG O2 Saturation 88.6 % 04/30/25 07:29 VBG Base Excess 3.5 mEq/L 04/30/25 07:29 Sodium 140 mmol/L (136-145) 05/07/25 06:52 Potassium 4.0 mmol/L (3.5-5.1) 05/07/25 06:52 Chloride 106 mmol/L (98-107) 05/07/25 06:52 Carbon Dioxide 28 mmol/L (21-32) 05/07/25 06:52 Anion Gap 6 (3-11) 05/07/25 06:52 BUN 42 mg/dl (6-23) H 05/07/25 06:52 Creatinine 3.34 mg/dl (0.6-1.2) H 05/07/25 06:52 Est Cr Clr Drug Dosing 31.4 ml/min 05/07/25 06:52 eGFR 15.46 05/07/25 06:52 BUN/Creatinine Ratio 12.6 (10-20) 05/07/25 06:52 Glucose 105 mg/dl (70-99(Fasting)) H 05/07/25 06:52 Lactate 0.9 mmol/L (0.4-2.0) 04/29/25 16:32 Calcium 8.5 mg/dl (8.6-10.3) L 05/07/25 06:52 Phosphorus 3.8 mg/dl (2.5-4.9) 05/02/25 06:22 Magnesium 2.0 mg/dl (1.7-2.4) 05/06/25 06:11 Total Bilirubin 0.3 mg/dl (0.2-1.0) 05/07/25 06:52 Direct Bilirubin 0.2 mg/dl (0-0.2) 04/29/25 16:32 AST 15 U/L (13-39) 05/07/25 06:52 ALT < 3 U/L (7-52) L 05/07/25 06:52 Alkaline Phosphatase 57 U/L (34-104) 05/07/25 06:52 Total Creatine Kinase 63 U/L (26-192) 04/29/25 16:32 Troponin I High Sens 32.5 pg/ml (0-14) H D 04/30/25 17:00 Total Protein 6.3 gm/dl (6.0-8.3) 05/07/25 06:52 Albumin 3.0 gm/dl (3.4-5.0) L 05/07/25 06:52 Globulin 3.3 gm/dl (2.5-4.0) 05/07/25 06:52 Albumin/Globulin Ratio 0.9 (0.9-2) 05/07/25 06:52 Procalcitonin 3.52 ng/ml (0-0.5) H 04/29/25 16:32 Urine Color Yellow 05/01/25 Unknown Urine Appearance Turbid (Clear) A 05/01/25 Unknown Urine pH 5.0 (4.5-7.5) 05/01/25 Unknown Ur Specific [place] 1.017 (1.000-1.030) 05/01/25 Unknown Urine Protein 2+ (Negative) H 05/01/25 Unknown Urine Glucose (UA) Negative (Negative) 05/01/25 Unknown Urine Ketones Trace (Negative) H 05/01/25 Unknown Urine Blood 3+ (Negative) H 05/01/25 Unknown Urine Nitrite Negative (Negative) 05/01/25 Unknown Urine Bilirubin Negative (Negative) 05/01/25 Unknown Urine Urobilinogen Negative (Negative) 05/01/25 Unknown Ur Leukocyte Esterase Trace (Negative) H 05/01/25 Unknown Urine WBC (Auto) 6-10 /hpf (0-5) H 05/01/25 Unknown Urine RBC (Auto) >20 /hpf (0-2) H 05/01/25 Unknown U Hyaline Cast (Auto) 6-10 /lpf (0-2) H 05/01/25 Unknown U Epithel Cells (Auto) 3-5 /hpf (0-2) H 05/01/25 Unknown Urine Bacteria (Auto) None Seen (None Seen) 05/01/25 Unknown Urine RBC >20 /hpf (0-2) H 04/29/25 19:22 Urine WBC 21-50 /hpf (0-5) H 04/29/25 19:22 Ur Epithelial Cells 11-20 /hpf (0-2) H 04/29/25 19:22 Amorphous Sediment Present (None Prsent) A 05/01/25 Unknown Urine Bacteria 1+ (None Seen) H 04/29/25 19:22 Granular Casts P /lpf (None Prsent) 04/29/25 19:22 Urine Comment 05/01/25 Unknown Nasal Screen MRSA (PCR) Positive (Negative) A 05/01/[address] 04/29/25 16:18 Exam(s): CT HEAD Without Contrast EXAM: CT Head Without Intravenous Contrast CLINICAL HISTORY: Reason for exam: AMS, fever. TECHNIQUE: Axial computed tomography images of the head/brain without intravenous contrast. CTDI is 35.92 mGy and DLP is 624.41 mGy-cm. Automated exposure control was utilized for the study. A dose lowering technique was utilized adhering to the principles of ALARA. COMPARISON: CT head on 02/22/2025 FINDINGS: Brain: No acute infarct or hemorrhage. No extra-axial fluid collection. No mass effect or midline shift. Ventricles and sulci: Normal. No ventriculomegaly or intraventricular hemorrhage. Bones: Old fracture deformity of the left lamina papyracea. No bony lesion or acute fracture. Subcutaneous tissues: Normal. Sinuses: Normal. No air-fluid levels or mucosal thickening. Mastoid air cells: Normal. Orbits: Grossly unremarkable. IMPRESSION: No acute intracranial abnormality. Further evaluation could be performed with MRI if clinically indicated. Electronically signed by: Isak Cintron M.D. 04/30/25 21:45 PM Chest X-Ray 04/29/25 16:19 Chest radiograph, one view History: Sepsis Comparison: February 20, 2025 Findings: Single AP view of the chest performed. Perihilar opacities. Blunted left costophrenic angle is seen, with a small pleural effusion not excluded. No pneumothorax. The cardiomediastinal silhouette is within normal limits. Indistinct pulmonary vascularity. No evidence for lymphadenopathy. No visualized bony or soft tissue abnormality. Impression: Bilateral perihilar opacity with indistinct pulmonary vasculature suggesting pulmonary edema. Underlying infection also is not excluded. Electronically signed by Stanford Layton 04-29-2025 6:34 PM Abdomen/Pelvis CT 04/29/25 22:26 Exam(s): CT ABDOMEN + PELVIS Without Contrast EXAM: CT Abdomen and Pelvis Without Intravenous Contrast CLINICAL HISTORY: Reason for exam: uti, sepsi,, hx of kidney stones. TECHNIQUE: Axial computed tomography images of the abdomen and pelvis without intravenous contrast. CTDI is 34.37 mGy and DLP is 2261.59 mGy-cm. Automated exposure control was utilized for the study. A dose lowering technique was utilized adhering to the principles of ALARA. COMPARISON: CT abdomen/pelvis on 02/20/2025 FINDINGS: Lung bases: Please see accompanying CT chest for further details. ABDOMEN: Liver: Mild hepatomegaly. Gallbladder and bile ducts: Unremarkable. No calcified stones. No ductal dilation. Pancreas: Unremarkable. No ductal dilation. Spleen: Borderline size of the spleen. Adrenals: Unremarkable. No mass. Kidneys and ureters: Unremarkable. No hydronephrosis or obstructing ureteral stone. Stomach and bowel: Fluid and gas filled small bowel loops may represent enteritis in the appropriate clinical setting. Gastric sleeve changes. Evaluation of the stomach is limited by underdistention. PELVIS: Appendix: No findings to suggest acute appendicitis. Bladder: Underdistended bladder limits evaluation. Please correlate with urinalysis if concerned for cystitis. No stones. Reproductive: Unremarkable as visualized. ABDOMEN and PELVIS: Intraperitoneal space: Unremarkable. No free air. No significant fluid collection. Bones/joints: Grade 1 anterolisthesis of L4 on L5. Degenerative changes of the spine. No acute fracture. No dislocation. Soft tissues: Small fat containing umbilical hernia. Vasculature: Unremarkable. No abdominal aortic aneurysm. Lymph nodes: Nonspecific mildly prominent inguinal and retroperitoneal lymph nodes. IMPRESSION: 1. Fluid and gas filled small bowel loops may represent enteritis in the appropriate clinical setting. 2. Underdistended bladder limits evaluation. Please correlate with urinalysis if concerned for cystitis. Electronically signed by: Isak Cintron M.D. 04/30/25 21:[address] 04/29/25 22:26 Exam(s): CT CHEST Without Contrast EXAM: CT Chest Without Intravenous Contrast CLINICAL HISTORY: Reason for exam: pneumonia? on cxr. TECHNIQUE: Axial computed tomography images of the chest without intravenous contrast. CTDI is 34.37 mGy and DLP is 2261.59 mGy-cm. Automated exposure control was utilized for the study. A dose lowering technique was utilized adhering to the principles of ALARA. COMPARISON: CT chest on 02/20/2025 FINDINGS: Lungs: Mosaic pattern of attenuation in the lungs could be secondary to air trapping versus infectious/inflammatory process or edema. Mild dependent atelectasis bilaterally. No mass. Pleural space: Trace bilateral pleural effusions. No pneumothorax. Heart: Small pericardial effusion. Mild coronary artery and mitral annular calcifications. No cardiomegaly. Mediastinum: Small hiatal hernia. Bones/joints: Degenerative changes of the spine. No acute fracture. Soft tissues: Unremarkable. Vasculature: See above. Lymph nodes: Unremarkable. No enlarged lymph nodes. Stomach and bowel: Postsurgical changes of the stomach. IMPRESSION: 1. Mosaic pattern of attenuation in the lungs could be secondary to air trapping versus infectious/inflammatory process or edema. 2. Trace bilateral pleural effusions. Electronically signed by: Isak Cintron M.D. 04/30/25 21:32 PM Renal Ultrasound 05/02/25 08:11 RENAL ULTRASOUND CLINICAL HISTORY: worsening KASHIF COMPARISON STUDY: Right upper quadrant ultrasound July 31, 2023. CT of the abdomen and pelvis April 30, 2025. TECHNIQUE: Sonography of the kidneys and the urinary bladder was performed. FINDINGS: The right kidney measures 12 cm in maximal dimension and the left measures 12.3 cm. The kidneys are echogenic. This exam is compromised by suboptimal penetration but there is no hydronephrosis. No renal mass is identified. Ureteral jets were not visualized. IMPRESSION: 1. No hydronephrosis. 2. Echogenic kidneys suggestive of medical renal disease. ACT 112: Negative or not required by law. Electronically signed by: Angel Hernandez M.D. 05/02/2025 11:50 AM (1) Sepsis Sepsis acute organ dysfunction status: unspecified Sepsis type: sepsis due to unspecified organism Qualified Code(s): A41.9 - Sepsis, unspecified organism
--- NOTE | 2025-05-07 11:50 | Nephrology Progress Note ---
Date of Service May 07, 2025 Assessment & Plan Admission and Anticipated Discharge Date Admission Date: April 29, 2025 Subjective Assessment & Plan (1) KASHIF (acute kidney injury): Creat baseline was 0.56 just recently during previous Adx in --will count that as baseline. Adx creat was 1.21 and since then gone up to 1/6 then 2.47 and peaked at 3.57--so rising consistently every day since Admission. this was despite getting IV fluid so definitely not simple vol depletion. So creat already up by x3 times qualifying as stage 3--Non oliguric type. Such consistent daily rise is almost always sec to ATN precipitated by infection/sepsis. Since creat still rising cannot tell how much worse it will get--As of now no need of dialysis and Likely wont need but cannot totally rule out. Rate of rise is very consistent. now creat 3.3. Clinch noting even at 1.21 on admission she was already having rising creatinine pre admission. for the first time in many days creat did not go up Overnight. Further drop to 3.3 now. KASHIF has peaked. Will like to see ideally Creat trending down a bit more before Discharge. Currently no lytes or acid base issue and no overt fluid overload. AIN is also theoretically possible but numerically much much less common. Nothing to suggest vol depletion--if anything Imaging suggest Vol overload. she is eating and drinking fine currently. But near impossible to accurately assess her volume Status sec to Morbid obesity. NO obstruction in the imaging tests done already. S--feels fine. NO new issues. Making lot of urine ROS----Denies any headache. Denies chest pain. Denies shortness of breath. Denies cough. Denies nausea. Denies abdominal pain. 12 Systems reviewed and is otherwise negative Patient had similar admission February 2025 ,was treated for right lower EXTR cellulitis and possible pneumonia and she improved and was discharged on Augmentin and doxycycline. Physical Exam Physical Exam: General- Awake and alert NO resp Distress HENET--MM moist. Neck supple. NO JVD. Lungs- clear to auscultation no wheezing or crackles. Heart- regular rhythm; no murmur Abdomen- soft, nontender, no distension Extremities- b/l severe lower extremity edema and chronic skin changes seen. Rt > left Results & Data Vital Signs (Past 12 Hours) Vital Signs Temp Pulse Pulse Resp BP BP Pulse Ox 05/07/25 11:40 36.4 C L 71 18 152/80 H 95 05/07/25 07:53 36.2 C L 72 18 154/68 H 92 05/07/25 07:22 75 05/07/25 05:25 168/74 H 05/07/25 03:07 36.8 C 77 21 168/91 H 93 05/06/25 23:54 76 O2 Del Method 05/07/25 11:40 Room Air 05/07/25 07:53 Room Air 05/07/25 07:22 05/07/25 05:25 05/07/25 03:07 Room Air 05/06/25 23:54
[2025-05-08 06:30] LABS: Hematocrit (blood only) 36.2 % (37.0-47.0); Hemoglobin 11.8 g/dl (12.0-16.0); Mean Corpuscular Hemoglobin 29.8 pg (25.0-34.0); Mean Corpuscular Volume 91.4 fL (80.0-100.0); Platelet Count 226 K/uL (130-400); RDW Standard Deviation 47.3 fL (36.4-46.3); Red Blood Count 3.96 M/uL (4.20-5.40); White Blood Count 5.94 K/ul (4.8-10.8)
[2025-05-08 06:53] LABS: Anion Gap 6 (3-11); Blood Urea Nitrogen 41 mg/dl (6-23); Calcium 8.6 mg/dl (8.6-10.3); Carbon Dioxide 29 mmol/L (21-32); Chloride 104 mmol/L (98-107); Creatinine Clr Calc Pharmacy 30.5 ml/min; Glucose 114 mg/dl (70-99(Fasting)); Potassium 4.1 mmol/L (3.5-5.1); Sodium 139 mmol/L (136-145)
[2025-05-08 06:55] LABS: INR 2.6 (0.9-1.1); Prothrombin Time 26.0 Seconds (9.0-12.0)
[2025-05-08 07:07] LABS: Alanine Aminotransferase < 3 U/L (7-52); Albumin Globulin Ratio 0.9 (0.9-2); Alkaline Phosphatase 59 U/L (34-104); Bilirubin,Total 0.3 mg/dl (0.2-1.0); Globulin 3.4 gm/dl (2.5-4.0); Total Protein 6.5 gm/dl (6.0-8.3)
[2025-05-08 07:53] VITALS: O2SAT 95
--- NOTE | 2025-05-08 10:45 | Discharge Summary ---
Discharge Summary Date of Service May 08, 2025 Principal Dx & Hospital Course #1 = Principal Diagnosis (1) Sepsis: (2) Bilateral lower leg cellulitis: (3) KASHIF (acute kidney injury): (4) Elevated troponin: (5) Metabolic encephalopathy: Plan Patient is a 55y/o F with PMHx significant for heterozygous MTHFR mutation, history of DVT, history of thrombophlebitis, factor V Leiden mutation anticoagulated on Coumadin, hypothyroidism, ELAN, HTN, chronic pain syndrome, history of kidney stones, depression, chronic insomnia, morbid obesity s/p partial gastrectomy, generalized osteoarthritis and other problems as outlined below who presented to the ED on 04/29/25 with complaints of confusion and BLE pain and is currently admitted with sepsis 2/2 recurrent BLE cellulitis. History of recurrent LE cellulitis - this is the 5th occurrence in the past [address] Hicks of [facility] as an outpatient on 04/08/25 whom recommended po amoxicillin BID for prophylaxis, however, patient never started taking this medication as there was a delay in the shipment of it to her home through the [facility] pharmacy mail-order service. Sepsis Metabolic encephalopathy (resolved) Left lower extremity cellulitis Leukocytosis, fevers, elevated procalcitonin all indicative of sepsis Initially started on IV cefepime/Daptodiscontinued on 05/01 Continue IV cefazolin while in house; ID recommendation to dc on cephalexin 1 g QID with EOT 05/13/25 for 14 days in total - renally adjusted dose to 1,000 cephalexin TID. If Cr Cl improves to >50 per lab work later this week, okay to increase dosing frequency back to QID Continue with long-term antibiotic suppression with p.o. cefadroxil 500 mg twice daily for at least 6 months Plan for outpatient follow-up with ID clinic in 2-3 months Acute kidney injuryATN secondary to sepsis Underlying CKDstage IIInonoliguric type KASHIF likely secondary to sepsis, troponin trending down, likely secondary to KASHIF Hold Lasix, avoid nephrotoxic agents, trend daily BMP Creatinine peaked at 3.57 on 05/05, Cr 3.46 today Renal ultrasound suggestive of medical renal disease Nephrology following, medications (Bupropion, Cephalexin) renally dosed Per Dr. Hernandez, nephro nurse to order renal panel (UA, Prot/creat, CBC) for at PCP office, nephrology follow up in 1 week Factor V Leiden Hx DVT Continue home Coumadin dosing and daily INR monitoring Hx hypothyroidism Continue levothyroxine Hx ELAN not on CPAP Not currently on oxygen or CPAP at bedtime CPAP use highly encouraged Hx HTN: BP remains stable, Lasix on hold due to KASHIF Hx chronic pain syndrome Hx depression Continue Wellbutrin, Cymbalta Discharged home, with home care and PT recommended on dc, arranged with CM. Care coordinated with Dr. Estrada. Notes For Next Care Provider cellulitis resolving, Medication Changes From Visit NEW: Keflex 1,000 mg by mouth three times a day x 6 days to complete course Probiotic daily for GI Health while on antibiotic CHANGED: Continue Bupropion at reduced dosing of 150mg daily until kidney function improves (per PCP/nephro) HOLD: Continue to hold Lasix until PCP/nephrology follow up and instructed otherwise Admission HPI Per Admitting Provider 55-year-old female with past medical history significant for heterozygous MTHFR mutation, factor V Leiden mutation heterozygous, history of DVT, history of thrombophlebitis, on Coumadin, hypothyroidism, obstructive sleep apnea not using CPAP or oxygen as per significant other, hypertension, chronic pain syndrome, history of kidney stones, history of major depression with severe psychotic features who lives at home with her significant other was brought in because of weakness and found to be confused and right lower leg cellulitis. Patient could tell her name. She is lying in the bed headdown. When asked where she is, she says do not know. Denies any headache. Denies chest pain. Denies shortness of breath. Denies cough. Denies nausea. Denies abdominal pain. Could not get much history from the patient. Patient is somewhat noncooperative. Called significant other. Significant other states patient went to sleep last night 7:30 PM and today morning she did not got up at her usual time. He got worried. It took couple of hours to bring her down. Seems able to ambulate okay. As per significant other no cough. No nausea /vomiting or diarrhea as per significant other. Yesterday she was doing okay as per significant other. Patient had similar admission February 2025 ,was treated for right lower EXTR cellulitis and possible pneumonia and she improved and was discharged on Augmentin and doxycycline. Past medical history. As mentioned above. Past surgical history. Bilateral carpal tunnel surgery. Colonoscopy. Dilatation curettage for irregular bleeding. EGD. IR aspiration of abscess 04/16/2021. Laparoscopic procedure of liver. Jaw surgery for fitting of partial dentures. Laparoscopic sleeve gastrectomy in 2014. Social history. Quit smoking 2000. Smoked 0.5 pack a day for 2 years. No alcohol use. No drug use. Family history. Maternal aunt had breast cancer. Cousin had breast cancer. Mother had diabetes. Blocked bowel. Hypertension. Thyroid disorder. Father had heart disorder. Paternal grandfather had heart disorder. For discharge Admission Exam Per Admitting Provider General- Sleepy Head- atraumatic Lungs- clear to auscultation no wheezing or crackles. Heart- regular rhythm; no gallop, Abdomen- normal bowel sounds, soft, nontender, no distension Extremities- b/l lower extremity chronic edema and skin changes seen. Right leg is erythematous and warm on palpation Neuro- Drowsy. oriented to name. no facial palsy; no dysarthria; moves extremities Discharge Exam Gen: WD/WN, NAD, sitting in bedside chair, A&Ox3m morbidly obese, anxious HEENT: Normocephalic, atraumatic Lung: Clear to Auscultation bilaterally Heart: Regular rate, regular rhythm Abdomen: Soft, NT, ND +BS x 4 Extremities: BLE edema, chronic. Venous stasis changes, erythema has resolved Updated Medication List Medication Instructions Recorded Confirmed Type calcium carbonate 600 mg PO DAILY 04/29/25 04/29/25 History cholecalciferol (vitamin D3) 50 50 mcg PO DAILY 04/29/25 04/29/25 History mcg (2,000 unit) capsule (Vitamin D3) cyclobenzaprine 5 mg tablet 5 mg PO HS PRN Muscle Spasm 04/29/25 04/29/25 History duloxetine 60 mg capsule,delayed 60 mg PO DAILY 04/29/25 04/29/25 History release fexofenadine 60 mg-pseudoephedrine 1 tab PO Q12H PRN Allergic Symptoms 04/29/25 04/29/25 History ER 120 mg tablet,ext.release,12 hr (Ayde-D 12 Hour) fluticasone propionate 50 2 spray intranasal DAILY 04/29/25 04/29/25 History mcg/actuation nasal spray,suspension furosemide 20 mg tablet 20 mg PO DAILY 04/29/25 04/29/25 History iron,carbonyl 65 mg-vitamin C 125 1 tab PO DAILY 04/29/25 04/29/25 History mg tablet,delayed release (Vitron-C) levothyroxine 88 mcg tablet 88 mcg PO DAILY 04/29/25 04/29/25 History omeprazole 20 mg capsule,delayed 40 mg PO DAILY 04/29/25 04/29/25 History release oxycodone-acetaminophen 10 mg-325 1 tab PO Q6H PRN Severe Pain 04/29/25 04/29/25 History mg tablet (Scale Score 7-10) warfarin 5 mg tablet 5 mg PO UD 04/29/25 04/29/25 History L.acidop,casei,lactis,rham-B.lact,di 1 cap PO DAILY #20 caps 05/08/25 Rx 625 mg (10 billion cell) capsule (Advanced Probiotic) bupropion HCl 150 mg tablet,12 hr 150 mg PO DAILY #0 ea 05/08/25 04/29/25 Rx sustained-release cephalexin 500 mg capsule 1,000 mg (2 x 500 mg) PO TID #36 05/08/25 Rx caps Hospital Stay Data Consultations 04/29/25 19:32 ED Decision to Admit Stat 05/01/25 08:42 Consult Infectious Diseases Routine 05/02/25 08:06 Consult Nephrology Routine Diagnostic Imagining Performed 04/29/25 16:18 CT head/brain wo con Stat 04/29/25 22:26 CT abd pelvis wo con Urgent CT chest diagnostic wo con Urgent 05/02/25 08:11 US Renal Bladder [US renal/blad retro comp] Routine Pending Results Patient Have Any Pending Studies at Discharge: No Discharge Instructions Given to Patient (Per Discharging Provider) MEDICATION CHANGES: NEW: Keflex 1,000 mg by mouth three times a day x 6 days to complete course Probiotic daily for GI Health while on antibiotic CHANGED: Continue Bupropion at reduced dosing of 150mg daily until kidney function improves (per PCP/nephro) HOLD: Continue to hold Lasix until PCP/nephrology follow up and instructed otherwise RECOMMENDATIONS FOR FOLLOW-UP: Follow up with PCP as scheduled. Nephrology nurse to arrange repeat lab work (BMP) for this , 05/11. Follow up with nephrology provider in 1 week. Complete antibiotic in its entirety. ID follow up in 2-3 months * Will require buttermaker abx suppression with PO cefadroxil 500 mg twice daily for at least 6 months Continue medication regimen as scheduled aside from changes noted above. OTHER INSTRUCTIONS: Seek medical attention if you have: * temperature above 101 * chest pain or trouble breathing * abdominal pain, nausea, vomiting * diarrhea, dark stools or bloody stools * any unanswered questions or concerns Call 911 if symptoms are severe. Please take good care of yourself. Call if you have any questions or problems. You can reach a [facility] hospitalist on duty at [facility] 24 hours a day by calling [phone]. Total Time Total Time Spent Total Time Spent (In Minutes): 50 Supervising Physician Co-Signing Physician Notes Patient seen and examined Agree with findings and plans as detailed by Joselyn Hicks PA-C
--- NOTE | 2025-05-08 11:22 | Nephrology Progress Note ---
Date of Service May 08, 2025 Assessment & Plan Admission and Anticipated Discharge Date Admission Date: April 29, 2025 Subjective Assessment & Plan (1) KASHIF (acute kidney injury): Creat baseline was 0.56 just recently during previous Adx in --will count that as baseline. Adx creat was 1.21 and since then gone up to 1/6 then 2.47 and peaked at 3.57--so rising consistently every day since Admission. this was despite getting IV fluid so definitely not simple vol depletion. So creat already up by x3 times qualifying as stage 3--Non oliguric type. Such consistent daily rise is almost always sec to ATN precipitated by infection/sepsis. Since creat still rising cannot tell how much worse it will get--As of now no need of dialysis and Likely wont need but cannot totally rule out. Rate of rise is very consistent. now creat 3.3. [place] noting even at 1.21 on admission she was already having rising creatinine pre admission. very anxious to go home. Creat did not drop today but has been about same range now for last 4 days. Ok to discharge her today. She will need renal panel, UA, Prot/creat, CBC on at her PCP office--order through nephrology. f/u nephrology within 1 week. Currently no lytes or acid base issue and no overt fluid overload. AIN is also theoretically possible but numerically much much less common. Nothing to suggest vol depletion--if anything Imaging suggest Vol overload. she is eating and drinking fine currently. But near impossible to accurately assess her volume Status sec to Morbid obesity. NO obstruction in the imaging tests done already. S--feels fine. NO new issues. Making lot of urine ROS----Denies any headache. Denies chest pain. Denies shortness of breath. Denies cough. Denies nausea. Denies abdominal pain. 12 Systems reviewed and is otherwise negative Patient had similar admission February 2025 ,was treated for right lower EXTR cellulitis and possible pneumonia and she improved and was discharged on Augmentin and doxycycline. Physical Exam Physical Exam: General- Sleeping soundly. Did not get sleep last night. Awake and alert NO resp Distress HENET--MM moist. Neck supple. NO JVD. Lungs- clear to auscultation no wheezing or crackles. Heart- regular rhythm; no murmur Abdomen- soft, nontender, no distension Extremities- b/l severe lower extremity edema and chronic skin changes seen. Rt > left Results & Data Vital Signs (Past 12 Hours) Vital Signs Temp Pulse Pulse Resp BP Pulse Ox O2 Del Method 05/08/25 07:52 36.8 C 86 18 159/66 H 95 Room Air 05/08/25 07:41 72 05/08/25 01:57 36.6 C 67 18 153/86 H 94 Room Air 05/08/25 00:23 36.4 C L 78 18 149/64 H 94 Room Air 05/07/25 23:38 66
[2025-05-08 11:23] VITALS: TEMP 97.9
[2025-05-08 11:41] VITALS: BP 152/80; PULSE 68
== END 2025-05-08 13:28 | disposition home or self-care (01) | DRG 871 ==
LOC: ED 16:09 → 2S 20:50 → SUATTDRO 20:50 → 2S 22:24